=== PATIENT | male | born 1945 | race Caucasian/White ===

== ENCOUNTER 2017-11-14 12:01 | Inpatient (IN) | payer OTHER, MEDICARE, SELFPAY ==
[2017-11-14] VITALS (111 sets, daily range): BP systolic 98–158; BP diastolic 48–121; PULSE 68–144; RESP 15–45; TEMP 36.8–40.9; O2SAT 86–97
--- NOTE | 2017-11-14 12:07 | DI.REPORT_ITS ---
SYMPTOM/DIAGNOSIS: FEVER, CHEST PAIN AP, LATERAL CHEST 11/14/17 The lungs are not well inflated on either view. There is mild respiratory motion on the lateral view. There is a question of mildly increased densities at the left lung base which could represent atelectasis, scarring or infiltrate. The right lung appears clear. The heart size is normal. IMPRESSION: Limited exam. Question of left lower lobe densities.
--- NOTE | 2017-11-14 12:22 | ED.GENADUL_ITS ---
Disposition Clinical Impression: Diverticulitis, Dehydration Disposition: STILL A PATIENT Medical Decision Making - Lab Data Laboratory Tests 11/14/17 11/14/17 11/14/17 12:50 12:50 12:50 WBC RBC Hgb Hct MCV MCH MCHC RDW Plt Count MPV Immature Gran % Neutrophils % Lymphocytes % Monocytes % Eosinophils % Basophils % Absolute Neutrophils Absolute Lymphocytes Absolute Monocytes Absolute Eosinophils Absolute Basophils PT INR APTT D-Dimer 3345 H Sodium 139 Potassium 3.9 Chloride 104 Carbon Dioxide 24.4 Anion Gap 10.6 BUN 23 H Creatinine 1.60 H Estimated GFR/1.73 m2 42.82 Glucose 166 H Lactate Calcium 8.4 L Magnesium 1.9 Total Bilirubin 1.1 H AST 21 ALT 30 Alkaline Phosphatase 56 Troponin I 0.02 Total Protein 7.1 Albumin 3.3 L Lipase 146 TSH Urine Color Urine Clarity Urine pH Ur Specific [place] Urine Protein Urine Ketones Urine Blood Urine Nitrite Urine Bilirubin Urine Urobilinogen Ur Leukocyte Esterase Urine RBC Urine WBC Ur Epithelial Cells Urine Crystals Urine Bacteria Urine Casts Urine Mucus Ur Culture Indicated? Urine Glucose 11/14/17 11/14/17 11/14/17 12:50 12:50 12:50 WBC 6.62 RBC 4.59 Hgb 13.8 Hct 41.6 MCV 90.6 MCH 30.1 MCHC 33.2 RDW 14.3 H Plt Count 153 MPV 9.9 Immature Gran % 0.0 Neutrophils % 95.6 Lymphocytes % 3.6 Monocytes % 0.3 Eosinophils % 0.0 Basophils % 0.5 Absolute Neutrophils 6.33 Absolute Lymphocytes 0.24 L Absolute Monocytes 0.02 L Absolute Eosinophils 0.00 Absolute Basophils 0.03 PT INR APTT D-Dimer Sodium Potassium Chloride Carbon Dioxide Anion Gap BUN Creatinine Estimated GFR/1.73 m2 Glucose Lactate 3.8 H Calcium Magnesium Total Bilirubin AST ALT Alkaline Phosphatase Troponin I Total Protein Albumin Lipase TSH 2.86 Urine Color Urine Clarity Urine pH Ur Specific [place] Urine Protein Urine Ketones Urine Blood Urine Nitrite Urine Bilirubin Urine Urobilinogen Ur Leukocyte Esterase Urine RBC Urine WBC Ur Epithelial Cells Urine Crystals Urine Bacteria Urine Casts Urine Mucus Ur Culture Indicated? Urine Glucose 11/14/17 11/14/17 12:50 13:10 WBC RBC Hgb Hct MCV MCH MCHC RDW Plt Count MPV Immature Gran % Neutrophils % Lymphocytes % Monocytes % Eosinophils % Basophils % Absolute Neutrophils Absolute Lymphocytes Absolute Monocytes Absolute Eosinophils Absolute Basophils PT 10.6 INR 1.1 APTT 23.9 D-Dimer Sodium Potassium Chloride Carbon Dioxide Anion Gap BUN Creatinine Estimated GFR/1.73 m2 Glucose Lactate Calcium Magnesium Total Bilirubin AST ALT Alkaline Phosphatase Troponin I Total Protein Albumin Lipase TSH Urine Color Yellow Urine Clarity Clear Urine pH 7.0 Ur Specific [place] 1.025 Urine Protein >=300 H Urine Ketones Negative Urine Blood Trace-intact H Urine Nitrite Negative Urine Bilirubin Negative Urine Urobilinogen 0.2 Ur Leukocyte Esterase Negative Urine RBC 0-2 Urine WBC 5-10 Ur Epithelial Cells Negative Urine Crystals Negative Urine Bacteria Rare Urine Casts 0-2 hyaline Urine Mucus Trace Ur Culture Indicated? Yes Urine Glucose 100 Results reviewed for labs ordered during visit: Yes - EKG Data Rate: normal (EKG was reviewed by Dr. Kelley. Patient is known to be in normal sinus rhythm with a rate of 102. Q waves are present but the same as EKG from 2004. She had read this atrial flutter by Dr. Kelley disagreed with this and was patient is in normal sinus rhythm.) When compared to previous EKG there are: no significant change - Radiology Data Radiology results: report reviewed, image reviewed Chest x-ray reviewed by radiologist. Mild interstitial lung scarring. Mild left basal atelectasis. No definitive significant consolidation. Costophrenic angles are sharp. No definite evidence of acute cardiopulmonary disease. CT of the patient's chest reviewed by radiology. Advise no evidence of PE. Mild interstitial lung scarring and/or atelectasis. No significant focal consolidation. Posterior pleural thickening. No pleural effusion. No pneumothorax. No adenopathy. No acute mediastinal aortic and abnormality. Advised that overall impression is without findings suggest specific etiology for patient's symptoms. I did contact Dr. Dumas, radiologist with [facility], regarding CT. I am questioning if there was an area of possible abnormality in the left lung to suggest PE. Advised it was too small to suggest definitive pulmonary embolism. I also questioned the lab on the right lower lobe. He advised that there is a bleb versus cyst. Did not have any further recommendations. CT of the patient's abdomen was also obtained. Advise normal-appearing solid organs. No interstitial obstruction. No obstruction uropathy. No free fluid. No free air. Diverticulosis with some thickening of the mid sigmoid colon and slight surrounding fatty stranding. Possibility of early mild diverticulitis should be considered. No other focal inflammatory process. Overall impression advised diverticulosis with some thickening of the mid sigmoid colon and slight surrounding fatty stranding. Possibility of mild early diverticulitis should be considered. - Medical Decision Making Patient presents today with chief complaint of fevers, malaise, chills, vomiting and diarrhea. Initial presentation patient appears unwell. He is pale , tachycardic and hypoxic. Patient placed on 2 L of oxygen. When he first arrived, his oxygen was noted to be in the high 80s. He reports he is currently quite uncomfortable but associates this with bilateral lower extremity sciatica. He has 2+ distal pulses his lower extremities. Calf is soft and nontender. He denies any chest pain. Is not currently feeling short of breath. Patient has temp of 37.9. Could consider multiple sources of his symptoms. As he is having vomiting and diarrhea I am concerned primarily for infectious source. However, as patient was noted to be tachycardic and hypoxic also concern for possible pulmonary embolism. Will also obtain cardiac biomarkers. EKG was obtained immediately upon the patient's presentation. No acute abnormalities noted other than patient being tachycardic. EKG was reviewed by Dr. Kelley. We will obtain chest x-ray, laboratory evaluation to include blood cultures, lactate, TSH, CBC, CMP, troponin, d-dimer. Patient given IV Tylenol. Patient is requesting pain medication to help with his sciatica pain. He will receive fentanyl for this. Chest x-ray without significant abnormality per radiologist. CBC reveals no leukocytosis. Lactate is returned at 3.8. Patient is currently receiving a second liter of fluids. He is received IV Tylenol and fentanyl. Reports he is feeling much improved. Patient looks much more comfortable. Heart rate is 93. Patient is 93% on 2 L nasal cannula Labs evaluation significant for d-dimer of 3345. Creatinine is elevated at 1.6 , this is up from patient's typical. GFR is 42. Lactate is 3.8. No leukocytosis. Calcium is minimally low. TSH is normal. I discussed these findings with the patient. As the patient has been noted to be hypoxic, tachycardic and is not elevated d-dimer I feel that we should obtain a CT for PE. As he is also had vomiting and diarrhea we will also CT the patient's abdomen. I did discuss that with the patient the risks associated with IV contrast dye particularly as he has an apparent acute kidney injury. However, I believe that this kidney injury is likely associated with dehydration as he was appearing so dry on initial presentation. He appears much more hydrated at this point is feeling much improved. We discussed risk/benefits of imaging as well as the intravenous dye. He was understanding and wished to proceed. Patient is receiving his second liter fluid. Is hydrating orally at this point. CT no significant for mild early diverticulitis. Discussed this with the patient. He continues to deny any abdominal pain. Road tested the patient. Was found to be 97% on room air while ambulating. Seems to be doing much better in a more upright position. Patient is no longer hypoxic when lying in bed either. Patient reports he is feeling much improved. Is currently hydrating orally. Remains on a lactated Ringer drip. The patient has a rapidly improved, we will repeat the patient's lactate, obtain 4 hour troponin as well as recheck patient' s kidney function. Discussed this plan with the patient. If patient is found to be greatly improved, he would prefer discharge. However, given his initial appearance, I did discuss with the patient that I would have low threshold to admit him. Patient reports that he does prefer discharge but would understand the need for admission. If patient is admitted, plan is to encourage hydration , treatment for presumed diverticulitis and arrange for prompt follow-up. Advised that he would need to be seen in the next 2 days. At the end of my shift, care was transitioned to Tolu Healy NP. History of Present Illness - General Chief complaint: Fever Stated complaint: CALEX Time Seen by Provider: 11/14/17 12:06 Source: patient, RN notes reviewed Mode of arrival: EMS Limitations: no limitations - History of Present Illness Initial comments: Patient is 72-year-old male with a history of type 2 diabetes, hyperlipidemia, diverticulitis and GERD, brought in via EMS, with chief complaint of rigors, fever and vomiting. He reports that he began having GI upset last night. States he had a sudden onset of nausea, vomiting diarrhea. Reports that last night he had 8 episodes of watery diarrhea. Denies any blood in his stool. He denies any abdominal pain. Is currently endorsing nausea. Did vomit when EMS first arrived to the house. EMS has given him 4 mg of Zofran thus far which she reports has helped with his nausea. States that when he was having his shaking episodes he was having some centralized chest discomfort and shortness of breath. Denies any pain in his back. Is currently denying any chest pain or shortness of breath. He reports he is currently feeling very weak. I difficulty moving himself from the stretcher to the bed. EMS reports that they found to be very weak at home. He is currently endorsing bilateral lower extremity pain. He reports that he has history of sciatica in the both legs and this is unchanged. He denies any new lower extremity edema or posterior calf tenderness. Patient was noted to be febrile by EMS. Glucose was 168. Patient reports she is not taking any of his medications as of yet today secondary to his illness. He denies any headache. Has not noted any rash. Endorses feeling dehydrated as well. Patient reports that he has had coxsackie virus in the past and that he feels similar to when he has had this in the past. - Related Data Acetaminophen [Tylenol Extra Strength] 500 mg PO TID PRN 08/04/12 Blood Sugar Diagnostic [Freestyle Test Strips] 1 each MC BID strip 08/04/12 Naproxen Sodium [Aleve] 220 mg PO BID PRN 08/04/12 Saw Marsteller Fruit [Saw Marsteller] 450 mg PO DAILY #90 tab-cap 04/22/13 Schisandra 500 mg PO PRN #90 tab-cap 04/22/13 Vitamin B Complex 1 tab-cap PO DAILY #90 tab-cap 04/22/13 Ascorbic Acid [Vitamin C] 125 mg PO DAILY #90 tab.chew 04/27/15 Bee Pollen 550 mg PO BID #180 tab-cap 04/27/15 Lactobacillus Acidophilus [Probiotic] 1 each PO DAILY #90 tab-cap 04/27/15 Quercetin 1 cap PO DAILY #90 tab-cap 04/27/15 Quer 05/23/15 Omeprazole 20 mg PO every 3 days #33 tab-cap 08/24/15 Cholecalciferol (Vitamin D3) [Vitamin D3] 1,000 unit PO BID 05/11/17 Flaxseed/Omega3,6,9/Fatty Acid [Flax Seed Oil 1,300 Mg Softgel] 1 each PO DAILY 05/11/17 Metformin HCl 1,000 mg PO BID 90 Days #360 tab-cap 08/10/17 Pravastatin Sodium 20 mg PO DAILY #90 tab-cap 08/10/17 Allergies Allergy/AdvReac Type Severity Reaction Status Date / Time diclofenac [Diclofenac] AdvReac Intermediate DIZZY/LIGHT Unverified 11/14/17 12: 54 HEADED amlodipine AdvReac Mild PEDAL EDEMA Unverified 11/14/17 12:54 venlafaxine AdvReac Unknown Unverified 11/14/17 12:54 Review of Systems Constitutional: see HPI, chills, fever, malaise, weakness (Global). denies: diaphoresis Eyes: denies: eye pain, vision change ENT: denies: ear pain, throat pain, congestion Respiratory: see HPI Cardiovascular: as per HPI Gastrointestinal: as per HPI Genitourinary: denies: urgency, dysuria, frequency, hematuria, discharge Musculoskeletal: denies: back pain, joint swelling Skin: denies: rash, lesions, change in color Neurological: weakness, abnormal gait (associated with weakness). denies: headache, numbness, paresthesias Past Medical History - Past Medical History Medical history: diabetes, GERD, hyperlipidemia Surgical history: no surgical history - Social History Smoking status: never smoker Living Situation: lives with family General Exam - General Limitations: no limitations General appearance: alert, in no apparent distress (appears uncomfortable and pale) - Head Head exam: Present: atraumatic - Eye Eye exam: Present: normal apperance - ENT ENT exam: Present: mucous membranes dry - Neck Neck exam: Present: normal inspection. Absent: tenderness - Respiratory Respiratory exam: Present: normal lung sounds bilaterally. Absent: respiratory distress, wheezes, rales, rhonchi - Cardiovascular Cardiovascular Exam: Present: normal rhythm, tachycardia, normal heart sounds - GI/Abdominal GI/Abdominal exam: Present: soft, diminished bowel sounds. Absent: distended, tenderness, guarding, rebound, rigid, bruit, pulsatile mass - Rectal Rectal exam: Present: deferred - Extremities Exam Extremities exam: Present: normal inspection, normal capillary refill, other (2 + distal pulses). Absent: pedal edema, calf tenderness - Back Exam Back exam: Present: normal inspection. Absent: CVA tenderness (R), CVA tenderness (L) - Neurological Exam Neurological exam: Present: alert, abnormal gait (patient weak, needed assistance to transver from gerny to stretcher) - Psychiatric Psychiatric exam: Present: anxious, flat affect - Skin Skin exam: Present: warm, dry, normal color Course Vital Signs - 24 hr 11/14/17 12:10 Temperature 37.9 C H Pulse 97 H Respiratory 22 Rate Blood Pressure 150/68 Pulse Oximetry 92 L
[2017-11-14] MEDS: Normal Saline 1,000 ML 1000 ML IV (12:27)
[2017-11-14] MEDS: ACETAMINOPHEN 1,000 MG/100 ML BTL 400 MG IVPB (12:35)
[2017-11-14] MEDS: fentaNYL 100 MCG/2 ML VIAL 50 MCG IVP ×2 (12:35→23:02)
[2017-11-14 13:11] LABS: Absolute Basophil Count 0.03 k/cumm (0.0-0.2); Absolute Lymphocyte Count 0.24 k/cumm (1.2-3.4); Absolute Monocyte Count 0.02 k/cumm (0.11-0.7); Absolute Neutrophil Count 6.33 k/cumm (1.2-6.7); Basophils % 0.5; HCT 41.6 % (40.0-50.0); HGB 13.8 g/dL (13.5-17.5); Lymphocytes % 3.6; Mean Corp. HGB Concentration 33.2 g/dL (32.0-36.0); Mean Corpuscular Hemoglobin 30.1 pg (27.0-33.0); Mean Corpuscular Volume 90.6 fL (80-95); Mean Platelet Volume 9.9 fL (8.0-11.0); Monocytes % 0.3; Neutrophils % 95.6; Platelet Count 153 x1000/uL (130-400); RBC 4.59 m/cumm (4.50-6.00); RBC Distribution Width 14.3 % (11.8-14.1); White Blood Cell Count 6.62 k/cumm (4.4-10.8)
[2017-11-14 13:12] LABS: Lactate-non-spesis 3.8 mmol/L (0.6-1.4)
[2017-11-14] MEDS: Lactated Ringers 1,000 ML 1000 ML IV (13:12)
[2017-11-14 13:25] LABS: INR 1.1 (1.0-3.5); PTT Activated 23.9 sec (21.0-31.4); Prothrombin Time 10.6 sec (9.3-10.8)
--- NOTE | 2017-11-14 13:29 | DI.[facility]AD_ITS ---
EXAM: XR Chest, 2 Views CLINICAL HISTORY: 72 years old, male; Pain and signs and symptoms; Fever; Chest pain; Type not specified TECHNIQUE: Frontal and lateral views of the chest. COMPARISON: CR - ABD FLAT UPRIGHT PA CHEST 2011-03-29 12:38 FINDINGS: Mild interstitial lung scarring. Mild left basal atelectasis. No definite significant other consolidation. Costophrenic angles are sharp. IMPRESSION: No definite evidence of acute cardiopulmonary disease. Dictated and Authenticated by: Eliezer Dumas MD. Ordering:NAVEED OLIVIER MD
[2017-11-14 13:34] LABS: Lipase 146 U/L (73-393); Magnesium 1.9 mg/dL (1.8-2.4)
[2017-11-14 13:40] LABS: Bilirubin Negative (Negative); Blood Trace-intact (Negative); Clarity Clear; Glucose 100 mg/dL (Negative); Ketones Negative (Negative); Leukocyte Esterase Negative (Negative); Nitrite Negative (Negative); Specific Gravity 1.025 (1.005-1.025); Urobilinogen 0.2 EU/dL (Up TO 0.2)
[2017-11-14 13:42] LABS: ALT 30 U/L (12-78); AST 21 U/L (15-37); Albumin 3.3 g/dL (3.4-5.0); Alkaline Phosphatase 56 U/L (46-116); Anion Gap 10.6 mmol/L (3-11); BUN 23 mg/dL (7-18); Bilirubin, Total 1.1 mg/dL (0.2-1.0); CO2 24.4 mmol/L (21.0-32.0); Calcium 8.4 mg/dL (8.5-10.1); Chloride 104 mmol/L (98-107); Estimated GFR 42.82 (mL/min/1.73m2); Glucose 166 mg/dL (70-100); Potassium 3.9 mmol/L (3.5-5.1); Sodium 139 mmol/L (136-145); Total Protein 7.1 g/dL (6.4-8.2); Troponin I 0.02 ng/mL (0.00-0.06)
[2017-11-14 13:47] LABS: D-Dimer 3345 ng/mlFEU (<500)
--- NOTE | 2017-11-14 13:54 | DI.RPTCT_ITS ---
SYMPTOM/DIAGNOSIS: ELEVATED DIMER, TACHYCARDIC, HYPOXIC, ELEVATED LACTATE, VOMITING AND DIARRHEA CHEST CT FOR PULMONARY EMBOLISM. There is no evidence of pulmonary embolism or aortic dissection. There are atherosclerotic changes of the descending aorta. Evaluation of the lungs is limited by respiratory motion. There is bibasilar posterior atelectasis. No compression fractures or pneumothorax seen. IMPRESSION: Negative chest CT. No evidence of pulmonary emboli or other acute abnormality. CT ABDOMEN AND PELVIS: The exam was somewhat limited by patient motion. The liver shows mild fatty infiltration. There is motion at the level of the gallbladder which appears grossly normal. There is no biliary dilatation. The spleen, adrenals and pancreas are unremarkable. There are bilateral renal cysts. There is no renal calculi or hydronephrosis seen. There are diverticula along the descending colon. Diverticula are quite prominent in the sigmoid region which also shows muscular hypertrophy. There is some mild stranding around the sigmoid region, consistent with mild or early diverticulitis. The appendix appears normal. There is no bowel dilatation. The prostate is mildly enlarged. The aorta is normal in diameter and shows atherosclerotic change. There is no evidence of dissection. IMPRESSION: Mild sigmoid diverticulitis
[2017-11-14 13:56] LABS: Bacteria Rare HPF (Negative); C & S Indicated? Yes; Casts 0-2 Hyaline LPF (Negative); Crystals Negative HPF (Negative); Epithelial Cells Negative HPF (Negative); Mucus Trace (Negative); RBC 0-2 (0-2)
[2017-11-14] MEDS: Omnipaque 350 MG/ML 100 ML BTL IJ (14:20)
--- NOTE | 2017-11-14 14:21 | NUR.NOTE ---
Nursing Note: Pt to CT scan.
[2017-11-14 14:26] LABS: TSH (W/Ref FT4) 2.86 uIU/mL (0.358-3.74)
--- NOTE | 2017-11-14 15:17 | DI.[facility]AD_ITS ---
EXAM: CT Abdomen and Pelvis With Intravenous Contrast CLINICAL HISTORY: 72 years old, male; Signs and symptoms; Other: Elevated d dimer, tachycardic, hypoxic, elevated lactate, vomitting TECHNIQUE: Axial computed tomography images of the abdomen and pelvis with intravenous contrast. Coronal and sagittal reformatted images were created and reviewed. COMPARISON: No relevant prior studies available. FINDINGS: Normal appearing solid organs. No intestinal obstruction. No obstructive uropathy. No free fluid. No free air. Diverticulosis with some thickening of the mid sigmoid colon and slight surrounding fatty stranding. Possibility of early mild diverticulitis would have to be considered. No other focal inflammatory process. Impression: Diverticulosis with some thickening of the mid sigmoid colon and slight surrounding fatty stranding. Possibility of early mild diverticulitis would have to be considered. EXAM: CT Angiography Chest With Intravenous Contrast CLINICAL HISTORY: 72 years old, male; Signs and symptoms; Other: Elevated d dimer, tachycardic, hypoxic, elevated lactate, vomitting TECHNIQUE: Axial computed tomographic angiography images of the chest with intravenous contrast using pulmonary embolism protocol. MIP reconstructed images were created and reviewed. Coronal and sagittal reformatted images were created and reviewed. COMPARISON: No relevant prior studies available. FINDINGS: No evidence of PE. Mild interstitial lung scarring and/or atelectasis. No significant focal consolidation. Posterior pleural thickening. No pleural effusion. No pneumothorax. No adenopathy. No acute mediastinal or aortic abnormality. Impression: No specific etiology identified for the patient's symptoms. Dictated and Authenticated by: Eliezer Dumas MD. Ordering:NAVEED OLIVIER MD
[2017-11-14] MEDS: Lactated Ringers 1,000 ML 200 ML IV ×2 (15:45→20:38)
--- NOTE | 2017-11-14 16:00 | NUR.NOTE ---
Nursing Note: walked to [facility] with oxygen removed--Sao2 96 %. C/o some weakness but states he feels a lot better
--- NOTE | 2017-11-14 16:24 | ED.FU_ITS ---
Disposition Clinical Impression: Diverticulitis, Dehydration Disposition: STILL A PATIENT Medical Decision Making - Lab Data Laboratory Tests 11/14/17 11/14/17 11/14/17 12:50 12:50 12:50 WBC RBC Hgb Hct MCV MCH MCHC RDW Plt Count MPV Immature Gran % Neutrophils % Lymphocytes % Monocytes % Eosinophils % Basophils % Absolute Neutrophils Absolute Lymphocytes Absolute Monocytes Absolute Eosinophils Absolute Basophils PT INR APTT D-Dimer 3345 H Sodium 139 Potassium 3.9 Chloride 104 Carbon Dioxide 24.4 Anion Gap 10.6 BUN 23 H Creatinine 1.60 H Estimated GFR/1.73 m2 42.82 Glucose 166 H Lactate Calcium 8.4 L Magnesium 1.9 Total Bilirubin 1.1 H AST 21 ALT 30 Alkaline Phosphatase 56 Troponin I 0.02 Total Protein 7.1 Albumin 3.3 L Lipase 146 TSH Urine Color Urine Clarity Urine pH Ur Specific [place] Urine Protein Urine Ketones Urine Blood Urine Nitrite Urine Bilirubin Urine Urobilinogen Ur Leukocyte Esterase Urine RBC Urine WBC Ur Epithelial Cells Urine Crystals Urine Bacteria Urine Casts Urine Mucus Ur Culture Indicated? Urine Glucose 11/14/17 11/14/17 11/14/17 12:50 12:50 12:50 WBC 6.62 RBC 4.59 Hgb 13.8 Hct 41.6 MCV 90.6 MCH 30.1 MCHC 33.2 RDW 14.3 H Plt Count 153 MPV 9.9 Immature Gran % 0.0 Neutrophils % 95.6 Lymphocytes % 3.6 Monocytes % 0.3 Eosinophils % 0.0 Basophils % 0.5 Absolute Neutrophils 6.33 Absolute Lymphocytes 0.24 L Absolute Monocytes 0.02 L Absolute Eosinophils 0.00 Absolute Basophils 0.03 PT INR APTT D-Dimer Sodium Potassium Chloride Carbon Dioxide Anion Gap BUN Creatinine Estimated GFR/1.73 m2 Glucose Lactate 3.8 H Calcium Magnesium Total Bilirubin AST ALT Alkaline Phosphatase Troponin I Total Protein Albumin Lipase TSH 2.86 Urine Color Urine Clarity Urine pH Ur Specific [place] Urine Protein Urine Ketones Urine Blood Urine Nitrite Urine Bilirubin Urine Urobilinogen Ur Leukocyte Esterase Urine RBC Urine WBC Ur Epithelial Cells Urine Crystals Urine Bacteria Urine Casts Urine Mucus Ur Culture Indicated? Urine Glucose 11/14/17 11/14/17 12:50 13:10 WBC RBC Hgb Hct MCV MCH MCHC RDW Plt Count MPV Immature Gran % Neutrophils % Lymphocytes % Monocytes % Eosinophils % Basophils % Absolute Neutrophils Absolute Lymphocytes Absolute Monocytes Absolute Eosinophils Absolute Basophils PT 10.6 INR 1.1 APTT 23.9 D-Dimer Sodium Potassium Chloride Carbon Dioxide Anion Gap BUN Creatinine Estimated GFR/1.73 m2 Glucose Lactate Calcium Magnesium Total Bilirubin AST ALT Alkaline Phosphatase Troponin I Total Protein Albumin Lipase TSH Urine Color Yellow Urine Clarity Clear Urine pH 7.0 Ur Specific [place] 1.025 Urine Protein >=300 H Urine Ketones Negative Urine Blood Trace-intact H Urine Nitrite Negative Urine Bilirubin Negative Urine Urobilinogen 0.2 Ur Leukocyte Esterase Negative Urine RBC 0-2 Urine WBC 5-10 Ur Epithelial Cells Negative Urine Crystals Negative Urine Bacteria Rare Urine Casts 0-2 hyaline Urine Mucus Trace Ur Culture Indicated? Yes Urine Glucose 100 Results reviewed for labs ordered during visit: Yes - Radiology Data Radiology results: report reviewed, image reviewed - Medical Decision Making Patient presenting to the emergency department for chief complaint of fever chills rigors and episode of diarrhea this morning around 9 AM. CARE of patient was started by June KERR. Patient reassessed after sign out and states that he feels significantly improved. Patient denies any pain or discomfort at this time but does state this morning during Reiger's he had some shortness of breath and chest pain that is now fully resolved. I agree with initially documented assessment and physical exam findings with no changes noted at this time. Review of second CMP shows improved lactate findings but still signs of acute renal dysfunction which I feel secondary to dehydration. Still pending on troponin. Received report of troponin of 0.12. Repeat EKG was performed and reviewed with Dr. Kelley and shows normal sinus rhythm with a rate of 81 normal axis and otherwise nondiagnostic. Patient was again reassessed and states no chest pain or discomfort. Repeat cardiac exam was also performed and no new findings were noted. I feel that this may be secondary bump in troponin due to viral illness versus primary but of notation is patient does have low O2 sat with rest. staff research scientist did place patient on O2 given some desat to 88%. Given elevated troponin , dehydration, fever and chills I do feel that patient should be admitted. There is slight concern for myocarditis versus slight findings of diverticulosis with possible progression of diverticulitis that is early. Spoke with Dr. Monroy in regards to patient being admitted which he accepted patient in admission for further trending of ESR and CRP that was added, trending of troponin, continued hydration, and possible early diverticulosis type treatment. Patient was also in agreement of this plan to be admitted for further treatment and observation. Care Signed Out By:: June KERR - Vital Signs Recent Vitals - 8H: Vital Signs - 8 hr 11/14/17 11/14/17 11/14/17 12:06 12:07 12:10 Temperature 37.9 C H Pulse 99 H 97 H Respiratory 25 H 27 H Rate Blood Pressure 150/63 150/68 Pulse Oximetry 89 L 86 L 89 L 11/14/17 11/14/17 11/14/17 12:18 12:20 12:30 Temperature Pulse 95 H Respiratory 21 18 34 H Rate Blood Pressure 149/61 Pulse Oximetry 92 L 92 L 11/14/17 11/14/17 11/14/17 12:32 12:40 12:50 Temperature Pulse 110 H Respiratory 25 H 34 H 33 H Rate Blood Pressure 156/121 Pulse Oximetry 93 L 91 L 11/14/17 11/14/17 11/14/17 13:04 13:20 13:22 Temperature Pulse 94 H Respiratory 34 H 15 26 H Rate Blood Pressure 158/71 Pulse Oximetry 89 L 11/14/17 11/14/17 11/14/17 13:26 13:30 13:31 Temperature 37.7 C H Pulse 92 H Respiratory 29 H 24 Rate Blood Pressure 146/69 Pulse Oximetry 93 L 93 L 11/14/17 11/14/17 11/14/17 13:40 13:46 13:50 Temperature Pulse 91 H Respiratory 28 H 29 H 32 H Rate Blood Pressure 134/60 Pulse Oximetry 93 L 94 L 94 L 11/14/17 11/14/17 11/14/17 14:01 14:10 14:35 Temperature Pulse 100 H Respiratory 21 25 H 28 H Rate Blood Pressure 124/66 Pulse Oximetry 93 L 92 L 92 L 11/14/17 11/14/17 11/14/17 14:36 14:40 14:46 Temperature Pulse 89 83 Respiratory 20 22 24 Rate Blood Pressure 124/68 131/62 Pulse Oximetry 91 L 91 L 95 11/14/17 11/14/17 11/14/17 14:49 14:50 15:00 Temperature 36.8 C Pulse Respiratory 23 21 Rate Blood Pressure Pulse Oximetry 96 96 11/14/17 11/14/17 11/14/17 15:01 15:10 15:16 Temperature Pulse 75 76 Respiratory 21 19 21 Rate Blood Pressure 130/61 131/67 Pulse Oximetry 96 95 95 11/14/17 11/14/17 11/14/17 15:20 15:25 15:30 Temperature 37.2 C Pulse Respiratory 19 27 H Rate Blood Pressure Pulse Oximetry 96 96 11/14/17 11/14/17 11/14/17 15:31 15:40 15:54 Temperature Pulse 82 81 Respiratory 25 H 26 H 29 H Rate Blood Pressure 126/68 140/61 Pulse Oximetry 95 96 93 L 11/14/17 11/14/17 11/14/17 15:55 16:00 16:01 Temperature Pulse 82 Respiratory 27 H 31 H 19 Rate Blood Pressure 113/74 Pulse Oximetry 94 L 93 L 92 L 11/14/17 16:10 Temperature Pulse Respiratory 31 H Rate Blood Pressure Pulse Oximetry 92 L - Continuation of Care Continuation of Care Plan: Care of patient was signed out to me for 72-year-old male presenting to the emergency department fever chills, diarrhea, and weakness. We are pending repeat troponin along with repeat CMP for concern of significant dehydration and possibly early diverticulitis. After review of repeat labs plan is to reassess patient for possible admission versus outpatient therapy and close follow-up.
[2017-11-14 16:39] LABS: Lactate-non-spesis 1.6 mmol/L (0.6-1.4)
[2017-11-14 16:49] LABS: Anion Gap 7.3 mmol/L (3-11); BUN 22 mg/dL (7-18); CO2 25.7 mmol/L (21.0-32.0); CREATININE 1.43 mg/dL (0.70-1.30); Calcium 8.2 mg/dL (8.5-10.1); Chloride 103 mmol/L (98-107); Estimated GFR 48.75 (mL/min/1.73m2); Glucose 146 mg/dL (70-100); Potassium 3.6 mmol/L (3.5-5.1); Sodium 136 mmol/L (136-145)
[2017-11-14 17:06] LABS: Troponin I 0.21 ng/mL (0.00-0.06)
[2017-11-14] MEDS: Acetaminophen 325 MG TAB 650 MG PO (17:24)
[2017-11-14 17:43] LABS: C-Reactive Protein 8.81 mg/dL (0.0-0.3)
[2017-11-14 18:20] LABS: ESR 36 MM/HR (1-20)
[2017-11-14 20:35] LABS: Troponin I 0.15 ng/mL (0.00-0.06)
[2017-11-14] MEDS: Pantoprazole 40 MG VIAL IVP (20:38)
[2017-11-14] MEDS: Acetaminophen 325 MG TAB PO (22:03)
[2017-11-14] MEDS: Pravastatin 20 MG TAB PO (22:04)
[2017-11-14] MEDS: Heparin 5,000 UNITS/ML VIAL 5000 UNITS SC (22:04)
[2017-11-14 22:26] LABS: Anion Gap 10.9 mmol/L (3-11); BUN 22 mg/dL (7-18); CO2 26.1 mmol/L (21.0-32.0); CREATININE 1.57 mg/dL (0.70-1.30); Calcium 8.4 mg/dL (8.5-10.1); Chloride 104 mmol/L (98-107); Estimated GFR 43.77 (mL/min/1.73m2); Glucose 138 mg/dL (70-100); Potassium 4.2 mmol/L (3.5-5.1); Sodium 141 mmol/L (136-145)
[2017-11-14] MEDS: Ibuprofen 600 MG TAB PO (23:43)
[2017-11-15] VITALS (74 sets, daily range): BP systolic 97–187; BP diastolic 46–114; PULSE 59–135; RESP 14–40; TEMP 35.5–40.2; O2SAT 90–98
[2017-11-15] MEDS: Normal Saline 1,000 ML 150 ML IV ×2 (00:42→10:41)
[2017-11-15] MEDS: Normal Saline Flush 10 ML SYR IVP (00:42)
[2017-11-15 01:13] LABS: Troponin I 0.64 ng/mL (0.00-0.06)
[2017-11-15] MEDS: AZITHROMYCIN 500 MG in Normal Saline 250 ML 250 MG IVPB (01:43)
--- NOTE | 2017-11-15 02:02 | NUR.NOTE ---
2202 the patient rang and states that he was just starting to feel some chills, temp 38C. RN Denis Mason left the room to get 1,000 mg tylenol POand upon directly returning with the medication in less than 10 minutes, found the patient in rigors and moaning. The patient took the tylenol and the rigors proceeded to worsen over the next 20 min. Warm blankets were added briefly which helped reduce the rigors and make the patient more comfortable. The patient had to get OOB to use the commode and did so with exertion and severe rigors. 224 Yolis Benitez RN paged Dr. Monroy while Denis Mason RN remained in the room with the patient. Dr. Monroy was updated on the patient's condition and ordered Fentanyl 50mcg IV and Ibuprofen 600mg PO. He also ordered IV tylenol PRN q 6hr given the patient's fast hyperthermic response. 2256 The patient returned to bed around this time and his HR was increased steadily from 120s to now 140s. 02 remaining 94-96% on 6L/NC The patient's RR was 30s. Patient's mental status was restless and patient had to be instructed repeatedly to reduce exertion as patient was trying to sit up or move into unnecessary positions with some confusion. Patient's thighs had dark purple mottling present at this time. 2302 Temp has now climbed to 40.6-40.9 and the patient is still in rigors with no affect seen from the 1,000mg oral tylenol. Fentanyl given and rigors stopped, patient drifted into disoriented rest. Pt not sure where he is at this time. 2317 Damp, cool towels have been placed under the patient's neck, in groin folds, and over patient's chest with a fan cooling the patient's head. No rigors are present and the temp remains 40.1. 2325 02 increased briefly from 6L/NC to 10L/NC as patient's 02 sat is staying 91-94%. Pt shallow mouth breathing so non-rebreather mask was used to replace NC. 02 sat maintaining 94-95% on 6L/min. Cultures were drawn and another troponin rechecked per Dr. Monroy. Second IV was placed by Yolis Benitez RN. 2340 Patient's mentation is starting to clear and patient is able to swallow Ibuprofen 600mg, patient voided for the 3rd time since 2201. Allergy factor with NSAID resemblance to diclofenac was reviewed with patient and patient states that he takes Ibuprofen and has no reaction. Temp now 39.1. Full physical exam was performed. Mottling of the thighs has now resolved.02 reduced to 2.5L/NC and patient maintaining 94%. Lungs noticeably diminished in the bases compared to [address] Monroy in to visit patient, reviewed labs, talked to the patient, found crackles in posterior bases not present on [address] Jesus updated on the concern that the patient is having another bout of coxsakie virus as the patient has had this several times before and it presented as such. The doctor plans to change LR to NS and reduce rate from 200 ml/hr to 150ml/hr. Also, he is starting ABX pip/celia 3.375 gram and Azithromycin 500mg IV to cover a bacterial agent given the repeated fever.Temp 39.3 now. Patient now able to converse and has vague remembrance of occurrences in the past two hours. ABIGAIL Mason has been in the room almost constantly since 2201 with the exception of leaving briefly to grab a supply. The patient's bedding was changed and temp continued to drop, towels were removed and the patient fell into a peaceful rest. 0110 temp 37.6, patient sleeping and in no distress, Dr. Monroy notified at this time that troponin increased to 0.64. The doctor ordered to have troponin redrawn with AM labs and routine EKG in the morning. ABX started and patient continuing to be monitored closely. Denis Mason RN Nursing Note:
[2017-11-15] MEDS: Heparin 5,000 UNITS/ML VIAL 5000 UNITS SC (06:16)
[2017-11-15 06:55] LABS: Abs Immature Grans 0.01 k/cumm (0.0-0.09); Absolute Basophil Count 0.03 k/cumm (0.0-0.2); Absolute Eosinophil Count 0.01 k/cumm (0.0-0.7); Absolute Lymphocyte Count 0.67 k/cumm (1.2-3.4); Absolute Monocyte Count 0.63 k/cumm (0.11-0.7); Basophils % 0.3; Eosinophils % 0.1; HGB 12.5 g/dL (13.5-17.5); Immature Grans % 0.1; Lymphocytes % 6.9; Mean Corp. HGB Concentration 32.9 g/dL (32.0-36.0); Mean Corpuscular Hemoglobin 29.9 pg (27.0-33.0); Mean Corpuscular Volume 90.9 fL (80-95); Mean Platelet Volume 10.2 fL (8.0-11.0); Monocytes % 6.5; Neutrophils % 86.1; Platelet Count 119 x1000/uL (130-400); RBC 4.18 m/cumm (4.50-6.00); RBC Distribution Width 14.9 % (11.8-14.1); White Blood Cell Count 9.66 k/cumm (4.4-10.8)
[2017-11-15 06:58] LABS: Absolute Neutrophil Count 8.32 k/cumm (1.2-6.7)
[2017-11-15 07:12] LABS: ALT 45 U/L (12-78); AST 44 U/L (15-37); Albumin 2.6 g/dL (3.4-5.0); Alkaline Phosphatase 47 U/L (46-116); Anion Gap 7.6 mmol/L (3-11); BUN 22 mg/dL (7-18); Bilirubin, Total 1.4 mg/dL (0.2-1.0); CO2 25.4 mmol/L (21.0-32.0); CREATININE 1.49 mg/dL (0.70-1.30); Calcium 7.9 mg/dL (8.5-10.1); Chloride 107 mmol/L (98-107); Estimated GFR 46.49 (mL/min/1.73m2); Glucose 154 mg/dL (70-100); Potassium 3.8 mmol/L (3.5-5.1); Sodium 140 mmol/L (136-145)
[2017-11-15 07:14] LABS: Troponin I 0.78 ng/mL (0.00-0.06)
--- NOTE | 2017-11-15 08:00 | DI.REPORT_ITS ---
SYMPTOM/DIAGNOSIS: FEVER, HYPOXIA WITH BASILAR RALES. PORTABLE SEMI-ERECT CHEST: Comparison is made with 14 November 2017. Leads overlie the chest. The heart size is within normal limits for projection. There is a question of increased density at the left lung base, however the lungs are not well inflated. An infiltrate cannot be entirely excluded. There is no evidence of overt pulmonary edema. IMPRESSION: Mildly increased densities at the left lung base which could represent scarring, atelectasis or infiltrate.
[2017-11-15 08:10] LABS: Lactate-non-spesis 1.1 mmol/L (0.6-1.4)
[2017-11-15] MEDS: CIPROFLOXACIN 400 MG/200 ML BAG 200 MG IVPB (08:17)
[2017-11-15] MEDS: Lactobacillus Acidophilus CAP 1 CAP PO (08:18)
[2017-11-15] MEDS: Aspirin 81 MG CHEW PO (08:18)
[2017-11-15 08:38] LABS: PTT Activated 28.5 sec (21.0-31.4)
[2017-11-15] MEDS: Metoprolol 12.5 MG TAB 6.25 MG PO ×2 (09:01→20:23)
[2017-11-15] MEDS: POTASSIUM CHLORIDE 20 MEQ/100 ML BAG 50 MEQ IVPB (09:06)
--- NOTE | 2017-11-15 10:14 | DI.VRAD_ITS ---
EXAM: XR Chest, 1 View EXAM DATE/TIME: 11/15/2017 12:18 AM CLINICAL HISTORY: 72 years old, male; Signs and symptoms; Other: Fever and hypoxemia with bibasilar rales; Patient HX: Sudden onset fever with rigors, previous smoker TECHNIQUE: XR of the chest, 1 view. COMPARISON: CR - CHEST 2 VIEWS PA,LAT 2017-11-14 13:11 FINDINGS: Lungs: Mild left basilar atelectasis and/or infiltrate and/or effusion and/or scarring. Pleural space: Normal. No pneumothorax. Heart/Mediastinum: Normal. No cardiomegaly. Bones/joints: Unremarkable for age. Other findings: Patient rotation to the left. IMPRESSION: Mild left basilar atelectasis and/or infiltrate and/or effusion and/or scarring. Dictated and Authenticated by: Daquan Charles MD. Ordering:BINU CALVO MD
[2017-11-15 11:09] LABS: Troponin I 0.48 ng/mL (0.00-0.06)
--- NOTE | 2017-11-15 11:58 | PDOC.CMIN ---
Date of Service: 11/15/17 Time of Service: 11:58 Care Management Initial Assess REASON FOR HOSPITALIZATION:: Diverticulitis, Dehydration PAST MEDICAL HISTORY/PAST SURGICAL HISTORY:: Per ER Note: Diabetes, GERD, Hyperlipidemia PREVIOUS FUNCTIONAL STATUS/SOCIAL/FAMILY SUPPORTS:: Clovis resides with his Liyah in [facility]. He is an employee at [employer] and works for [employer]. Clovis is independent at baseline, drives, and is able to manage ADL's. CURRENT FUNCTIONAL STATUS:: Clovis is sitting up in bed this morning. He is texting on his phone and states that he is feeling better than he was yesterday. Clovis states that his temperature got so high that he doesn't remember everything that happened yesterday. ADVANCE DIRECTIVES:: On file - Liyah Westbrook is his agent, Alternate agent is Royal Sauer Has patient been provided with information about the portal?: Yes Did the patient sign up for the portal?: No (already has) CODE STATUS:: Full Code INSURANCE COVERAGE / FINANCIAL ISSUES:: [employer] CURRENT HOME/COMMUNITY SERVICES/EQUIPMENT:: Currently Clovis has no services or medical equipment in the community. PRIMARY CARE PHYSICIAN:: Shyam Harvey POTENTIAL DISCHARGE NEEDS:: F/U appointment with PCP PATIENT/FAMILY EDUCATION NEEDS:: Review DC instructions, any limitations, and ongoing DC planning discussion. Discuss Ask Me Three ANTICIPATED BARRIERS TO DISCHARGE:: None identified at this time. TRANSPORTATION:: Via private vehicle with Liyah PLAN:: Clovis will return home when medically cleared with no anticipated services. Clovis will F/U with PCP and plan of care as prescribed, his Liyah will transport him.
--- NOTE | 2017-11-15 12:02 | INITIAL_ITS ---
Date of Service: 11/15/17 Time of Service: 11:58 Care Management Initial Assess REASON FOR HOSPITALIZATION:: Diverticulitis, Dehydration PAST MEDICAL HISTORY/PAST SURGICAL HISTORY:: Per ER Note: Diabetes, GERD, Hyperlipidemia PREVIOUS FUNCTIONAL STATUS/SOCIAL/FAMILY SUPPORTS:: Clovis resides with his Liyah in [facility]. He is an employee at [employer] and works for [employer]. Clovis is independent at baseline, drives, and is able to manage ADL 's. CURRENT FUNCTIONAL STATUS:: Clovis is sitting up in bed this morning. He is texting on his phone and states that he is feeling better than he was yesterday. Clovis states that his temperature got so high that he doesn't remember everything that happened yesterday. ADVANCE DIRECTIVES:: On file - Liyah Westbrook is his agent, Alternate agent is Royal Sauer Has patient been provided with information about the portal?: Yes Did the patient sign up for the portal?: No (already has) CODE STATUS:: Full Code INSURANCE COVERAGE / FINANCIAL ISSUES:: [employer] CURRENT HOME/COMMUNITY SERVICES/EQUIPMENT:: Currently Clovis has no services or medical equipment in the community. PRIMARY CARE PHYSICIAN:: Shyam Harvey POTENTIAL DISCHARGE NEEDS:: F/U appointment with PCP PATIENT/FAMILY EDUCATION NEEDS:: Review DC instructions, any limitations, and ongoing DC planning discussion. Discuss Ask Me Three ANTICIPATED BARRIERS TO DISCHARGE:: None identified at this time. TRANSPORTATION:: Via private vehicle with Liyah PLAN:: Clovis will return home when medically cleared with no anticipated services. Clovis will F/U with PCP and plan of care as prescribed, his Liyah will transport him.
--- NOTE | 2017-11-15 12:16 | HPE_ITS ---
DATE OF ADMISSION: November 14, 2017 ASSESSMENT: This is a 72-year-old gentleman who presented with fever and rigors with no true focal physical findings to explain his fever though he had been exposed to coxsackievirus which could present with recurring fever which normalizes in between episodes and he does have GI symptoms with nausea and diarrhea. Because of rales and increased inflammatory labs, though he does not have a high white count, and because of his findings on CT scan with possible diverticulitis, I will place him on IV antibiotic therapy to cover both while we await cultures and treat symptomatically with hydration for his acute kidney injury, watching for worsening since he is on metformin and received iv dye. His diagnosis is fever with probable diverticulitis at this point. PLAN: Admit for medical care. Continue IV hydration. IV antibiotics with Zosyn and Zithromax. Reassess chest x-ray in the morning for possible evolving pneumonia. Consider flu screen if his fever persists at high levels though there have been no flu cases recently. For now his diabetes with glucometer coverage with a.c. and h.s. glucometer, with his other medications continued the same. He is a FULL CODE and this will be respected. HISTORY OF PRESENT ILLNESS: This is a 72-year-old gentleman who was brought to the Emergency Room early with episodes of fever and rigors and was found to be hypoxic, with sinus tachycardia. He had had GI upset the night prior to his presentation. He does have a history of diverticulosis, questionable diverticulitis when he was scanned in the Emergency Room. After hydration and initial treatment the patient was feeling much better but he had a troponin which was negative initially and then positive with repeat. He had no history of CAD and no previous angina, and he had no chest pain during his episode. He was short of breath and did complain of chest pain during his episode of rigors but that had resolved. 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 This is reminiscent of previous infection with coxsackievirus with GI symptoms and high fever. He was admitted on medical care with cardiac monitoring and was to remain on hydration and O2 supplement as needed though he had no previous history of hypoxemia or respiratory symptoms. He was a previous smoker for about 30 years and his has severe COPD. He and his were both smokers. He is on minimal medications, mostly supplements, has obesity and appears to not be an shooter helper. He does have diabetes but this is on oral therapy only. He did receive IV dye with his CT scans and on lab he did have an elevated renal panel which is waxing and waning with IV hydration and his symptoms. This needs to be watched closely. Besides his rigors and body aches with high fever up to about 105 after he was admitted to the ICU on medical care, the patient feels well in between these episodes. He did have nausea, not sure about vomiting, and he did have diarrhea with his symptoms. He denied any hematemesis or hematochezia. PERTINENT REVIEW OF SYSTEMS: No peripheral edema or weight gain. The patient has been generally well prior to this episode. PAST MEDICAL HISTORY: 1. Noninsulin-dependent diabetes on metformin. 2. Hyperlipidemia on pravastatin. 3. Diverticulosis. 4. Peptic ulcer disease. 5. Hypertension. 6. Obesity. 7. Myalgias on certain statins. 8. Back pain with bilateral sciatica and myalgias in general as mentioned. PAST SURGICAL HISTORY: 1. Arthroscopy surgery on left shoulder in 2001. 2. Bilateral inguinal hernia repair. 3. Tonsillectomy and adenoidectomy. ALLERGIES: 1. Diclofenac. With diclofenac, which is an NSAID, he had dizziness as a symptom and he is on and is able to take NSAIDs. 2. Amlodipine. 3. Venlafaxine. MEDICATIONS: 1. Metformin 1000 mg twice a day. 2. Omeprazole 20 mg every 3 days. 3. Pravastatin 20 mg daily. 4. Naproxen/Aleve 220 mg twice a day as needed. 5. Tylenol 500 mg 3 times a day for pain. 6. Vitamin C 125 mg daily. 7. Vitamin D 1000 IU twice a day. 8. Bee pollen 550 mg twice a day. 9. Flaxseed with omega-3/6/9 fatty acid 1300 mg softgel daily. 10. Lactobacillus acidophilus, 1 daily. 11. Quercetin, 1 cap daily. 12. Saw palmetto 450 mg daily. 13. Vitamin B complex, 1 tab daily. 14. Schisandra 500 mg as needed. FAMILY HISTORY: Positive for depression, diabetes, hypertension, and substance abuse in his daughter who at the age of 26. Alzheimer's disease in his father. Heart disease in his father and grandfather. Leukemia in his father. Myocardial infarction as heart disease. SOCIAL HISTORY: The patient is . 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 He is a previous smoker of 30 years or so at one pack per day; his also smoked. Minimal alcohol. No substance abuse. 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 He is a FULL CODE. FULL REVIEW OF SYSTEMS: As above, otherwise unrevealing. PHYSICAL EXAMINATION: VITAL SIGNS: Blood pressure 155/60. Pulse 97; it was over 100 when his fever was higher. At the time I saw him his temperature was 39.1; he did go up to 105 and then he came down with treatment. Respiratory rate was 25 with his rigors and tachycardia. Pulse oximeter 96% on O2. When he was not having fever and his temperature was 37.2, his blood pressure was 122/50, pulse was 71 , respirations 21, pulse oximeter 92% on 2 liters minute per nasal cannula. GENERAL: The patient appears appropriate for age. Acute to moderate distress with rigors and myalgias. He has a flattened affect. He is alert and oriented x3. HEENT: Normocephalic. Eyes with pupils equal and reactive to light symmetrically. Extraocular movements intact. Sclerae anicteric. Ears normal. Oropharynx slightly dry. Oral mucosa pink. NECK: Supple, without JVD. LUNGS: Coarse crackles over both bases with decreased aeration at both bases. Bronchovesicular breath sounds over the upper air doty over the back. No increased expiratory phase and no expiratory wheeze. HEART: Tachycardic at the time of my exam, regular rhythm, without murmurs or gallops. bus driver/monitor did show his sinus tachycardia. ABDOMEN: Obese, soft. Bowel sounds are positive. No focalizing tenderness. No guarding or tenderness in the left lower quadrant. GENITALIA: Deferred. RECTAL: Deferred. EXTREMITIES: Nonpitting edema. The patient is obese. Peripheral pulses are decreased but intact. Capillary refill is fair. No cyanosis or clubbing. SKIN: Pale, moist, and warm. No rashes. NEURO: Cranial nerves II-XII grossly intact. No focalizing motor deficits. Babinski's absent. DTRs are physiologic and symmetrical. LABORATORY REVIEW: Sodium 139, potassium 3.9, TCO2 24.4, anion gap 10.6, with these remaining fairly stable with repeat lab - sodium 141, potassium 4.2, TCO2 26.1, with anion gap 10.9. BUN was 23, decreasing to 22. Creatinine was 1.6, decreasing to 1.43, then increasing to 1.57, with this to be followed up in the morning, especially after IV dye with his metformin which is being held. GFR is estimated at about 43 to 48. Glucose was 166, with repeat 138. Lactate 3.8 , repeat 1.6. Calcium was 8.4, remained stable. Magnesium was 1.9. Total bilirubin was 1.1, with the rest of the liver function tests normal. Troponin was initially 0.02, then bumped up to 0.21, and repeat was 0.15, with repeat to be done in the morning. C-reactive protein 8.81. Total protein 7.1. Albumin low at 3.3. Lipase 146. TSH was 2.86. PT/INR was normal and PTT was normal. D-dimer was 3345. White count was normal at 6.6, hemoglobin and hematocrit 13.8/41.6, with MCV 98.6. Platelet count 153,000. Sed rate was up at 36. Urinalysis appeared benign except for increased protein and trace blood. Urine culture was performed. Chest CT was negative for PE, with some scarring but no infiltrates seen. CT of the abdomen did show diverticulosis with a question of stranding and diverticulitis in one segment though the patient has no palpable tenderness. Chest x-ray had no acute disease. Blood cultures were done in the Emergency Room and repeated when he had repeat fever and rigors on the floor.
--- NOTE | 2017-11-15 12:31 | PHARADMIT ---
Addendum entered by Shikha Pate 11/25/17 15:04: Pharmacy Note Subjective pt expects to go home tomorrow Objective vs ok, no fevers last 4 days, ECHO today, liver enzymes going down Assessment Ampicillin IV continues, Md to refer to ID for recommended time to end abx Plan watch for possible change to po abx, waiting for speciation of the bacteroides (send out) Original Note: Addendum entered by Dedra Soria 11/24/17 15:17: Pharmacy Note Subjective pt is hopeful to return home tomorrow per CM note Objective VS-okay FSBG-173 AST-70 ALT-168 Assessment scheduled insulin aspart and glargine ordered yesterday fentanyl discontinued, MD was going to change to po abx this morning but then cancelled them Plan watch LFTS, watch for possible change to po abx, waiting for speciation of the bacteroides (send out) Original Note: Addendum entered by Shikha Pate 11/22/17 10:12: Pharmacy Note Subjective per MD note yesterday pt needing 14 days abx based on severity of diverticulitits and bacteremia Objective temp 38 overnight, BC from 11/18 prelim results no growth x 72 hours Assessment Md ? endocarditis ECHO ordered and nursing to check IV lines for infection and will change IV site, metronidazole and pip/tazo continue Plan watch for ECHO results. possible abx med choice and/or duration to change per results Original Note: Addendum entered by Shikha Pate 11/21/17 14:19: Pharmacy Note Subjective Md expects pt to be here over the weekend Objective vs ok, Assessment pip/tazo dose increased due to micro results, no other med changes noted Plan Original Note: Addendum entered by Vinnie Lind III 11/20/17 14:29: Pharmacy Note Subjective Ambulating hallways, afebrile, feeling better. E-coli resistant to Cipro/Levaquin, sensitive to Zosyn/Ampicillin. Gram negative sepsis diverticulitis Objective VS-OK Temp-36.5C WBC- 8.28 SCr-0.98 K+3.8 Reg BMs Assessment Zosyn continues for now, tp switch to PO ??soon? Plan Possible discharge home on PO ABX if remain afebrile. Original Note: Addendum entered by Vinnie Lind III 11/19/17 17:24: Pharmacy Note Subjective SPIKED FEVER/RIGORS OVERNIGHT, WENT FOR CT OF ABDOMEN TODAY ( ? Abscess).(GRAM-NEGATIVE E-COLI SEPSIS) Objective VS-OK (temp-36.2C) WBC-8.24 Labs-OK BM today. Assessment Zosyn Continues Plan No new MD note yet Original Note: Addendum entered by Dedra Soria 11/18/17 11:49: Pharmacy Note Subjective pt. had fever with rigors yesterday evening; and reported a sharp pulsating pain in right upper abdomen per morning report Objective VS-okay plt-115(up) wbc-8.42 Assessment heparin drip discontinued, protonix discontinued, omeprazole ordered, metoprolol IR changed to CR zosyn continues Plan watch plts, stool cultures still pending Original Note: Addendum entered by Dedra Soria 11/17/17 15:48: Pharmacy Note Subjective pt. still feeling a little weak and continues to have fevers but no rigors per morning report Objective Tmax-38.4 BP-180/74 HR-91 RR-26 h/h-12.3/36.6 plt-100(up) wbc-8.19 Assessment blood culture sensitivities are back it is sensitive to zosyn and other abx, no change in abx yet lactoferrin positive, C.diff was cancelled Plan watch plts, for possible change of abx (narrow therapy) Original Note: Addendum entered by Shikha Pate 11/16/17 11:11: Pharmacy Note Subjective gram neg volodymyr bacteremia, ECHO today Objective pip/tazo abx, plt down to 93, heparin infusion, troponins trending down Assessment possible low plt due to abx, pip/tazo and heparin infusion continues Plan watch plt, BC for sens, stool tests pending Original Note: Admission Pharmacy Clinical Review dehydration, fever, colitis Code Status Full Code Current Weight 100.6 kg Renally Cleared and Narrow Therapeutic Index Meds Crcl ~54.0 mL/min using adjusted body weight current meds okay QTc Value / Action Taken QTc 428 n/a BP Control, Fever BP 110/58 afebrile Electrolytes reviewed within normal limits DVT Prophylaxis on heparin drip Opiate Usage / Scheduled Bowel Regimen Ordered prn/prn Plt/SCr for Heparin / Enoxaparin plt 119 (down from yesterday) SCr 1.49 INR for Warfarin n/a H/H stable, WBC/Bands h/h 12.5/38.0 wbc 9.66 Antibiotic appropriateness zosyn Cultures and Sensitivities blood cultures grew gram negative rods, has additional blood cultures pending, lactoferrin pending and urine culture Surgical ABX d/c within 24 hr n/a DM control / Insulin Dosing BG 154 has sliding scale insulin aspart ordered Heart Failure (Check EF%) (LA's, B-Block, Diuretics) metoprolol, IV to PO Switch n/a Home Meds Reviewed yes Home Meds Not Ordered metformin, naproxen (PRN), omeprazole (has pantoprazole ordered), schisandra (PRN) Comments watch platelets pts own meds have not been brought to or checked by pharmacy yet
[2017-11-15] MEDS: Vitamins B Comp w/C TAB 1 TAB PO (12:34)
[2017-11-15] MEDS: fentaNYL 100 MCG/2 ML VIAL 50 MCG IVP ×2 (13:29→22:32)
[2017-11-15] MEDS: Acetaminophen 325 MG TAB PO (13:30)
[2017-11-15] MEDS: Ketorolac 15 MG/ML VIAL IVP (14:04)
[2017-11-15 15:20] LABS: Troponin I 0.74 ng/mL (0.00-0.06)
[2017-11-15 16:00] LABS: PTT Activated 46.3 sec (21.0-31.4)
[2017-11-15] MEDS: Insulin Aspart 300 UNITS/3 ML PEN SC (17:03)
[2017-11-15] MEDS: Acetaminophen 325 MG TAB 650 MG PO (17:10)
--- NOTE | 2017-11-15 17:19 | NUR.NOTE ---
Nursing Note: See vital sign documentation interventions 1323-patient reports rigors starting Fentanyl, Tylenol, and Toradol were given--see EMAR for times given Patient had rigors for approximately 60 minutes. During the rigors patient's temperature max was 40.2, RR max in the 50's, BP max 161/108, heart rated max into the 140's and oxygen on room air dropped as low as 84%--oxygen applied up to 5L NC. Patient became pale and ashen and LE's mottled during this time. Once patient started coming out of the rigors noted patient had some confusion but was easily reoriented. After about 30 minutes patient was back to baseline--A&O X3 but very tired. Patients color improved and mottling diminished. Patient's , Liyah, in room when patient was recovering from rigors episode. She visited until approximately 1630. During her time here Dr. Vela stepped into the room to check on the patient and update both the patient and spouse on plan of care.
--- NOTE | 2017-11-15 19:27 | PGE_ITS ---
November 15, 2017 >>>>>>>>>>>>>>>>>>>>>>>>> ASSESSMENT AND PLAN: #1: GRAM NEGATIVE DIANNE BACTEREMIA - currently with evidence of potential mild diverticulitis by CAT s can but clinically the patient has been complaining of significant diarrhea, nausea and vomiting over the course of the last two days. Gram negative bacteremia may be on the basis of a GI infection. Will check stool cultures, fecal leukocytes and Clostridium difficile. Given the severity of the patient's symptoms and the degree of elevation of his temperature will init ially treat empirically with Piperacillin-Tazobactam until cultures results are available to guide th erapy. Continue i.v. fluids but given evidence of development of a mild pleural effusion will decrease rate as the patient appears to be stable and no longer tachycardic. Monitor temperatures, vital signs and symptoms very closely. Continue to monitor original and repeat blood culture results. Mr. Westbrook had significant elevation in temperature with an elevated respiratory rate, tachycardia, wi th obvious gram negative dianne bacteremia as well as evidence of organ dysfunction, as manifested by la ctic acid that was greater than 2. The patient's overall picture fits the criteria for sepsis. #2: ELEVATED TROPONIN - mild elevation in Troponin which initially trended up with a concurrent mild elevation in AST in the setting of acute illness and likely underlying sepsis, probably represents d emand ischemia. EKG from admission and repeat EKG from the morning were reviewed and do not appear t o be ischemic. However, the patient does have a history of diabetes, hypertension and dyslipidemia a nd elevation in Troponin continued and worsened and was not equivocal in nature. At this time will a ttempt to treat with continuation of home regimen of statins (Mr. Westbrook apparently has an allergy wit h muscular discomfort to high potency statins), initiate low dose beta sascha therapy, daily aspirin , and 24 to 48 hours of heparin drip and trend Troponins further. It is encouraging that repeat Trop onin later this morning has started to trend down again. Monitor very closely and check an echocardiogram once able, tomorrow. #3: DIABETES. Hold home regimen of Metformin, especially in light of CT with i.v. contrast. Maintain on sliding scale coverage only at this time, as well as an ADA diet. Given GI complaints, however, will maintain patient on full liquid diet. #4: HYPERTENSION - current blood pressures are reasonable, especially in the setting of sepsis. Con tinue to monitor. Does not appear to be on a home antihypertensive regimen. #5: DYSLIPIDEMIA. Continue Pravastatin given intolerance of statin therapy in the past. #6: PROPHYLAXIS - currently on a heparin drip as above. Continue proton pump inhibitor therapy as w johnson. #7: CODE STATUS - FULL CODE. Approximately 45 minutes was spent in coordination of today's care. >>>>>>>>>>>>>>>>>>>>>>>>> SUBJECTIVE: This is a 72-year-old man with a past medical history significant for diabetes, dyslipi demia, hypertension and prior peptic ulcer disease who was admitted from the [facility] Emergency Room on with evidence of fever. Mr. Westbrook had reported an approximate two day history of fevers with intense rigors, malaise, vomitin g and diarrhea. Upon presentation he was noted to be pale and tachycardic, mildly hypoxic and acutel y ill appearing. Work-up in the Emergency Room showed an essentially normal chest x-ray and subsequent CT of the abdom en and pelvis showed potential signs of mild diverticulitis, a condition that the patient has had in the past. His urinalysis was negative. Mr. Westbrook's blood work did not show a significant leukocytosis but his cardiac enzymes were noted to be elevated despite a normal EKG. Following admission Mr. Westbrook went on to develop significant rigors along with very high fevers and a maximum temperature of 40.9. He was noted to be mildly hypotensive at times and very ill appearing while being treated in the Intensive Care Unit. Both sets of blood cultures returned positive for gr am negative dianne bacteremia. Mr. Westbrook was maintained on treatment with i.v. fluids and Pip-Tazo This morning the patient appears clinically improved and he is subjectively feeling better. No othe r events were reported over night. He is currently afebrile and has been so since midnight last nigh t and he is no longer tachycardic. His Troponin initially was elevated to a value of 0.64 and then 0.78 upon recheck this morning. PHYSICAL EXAMINATION: GENERAL - the patient is pale and mildly ill appearing but in no acute distress. VITAL SIGNS - temperature 35.5 and afebrile since midnight, at which time his temperature was 38.0; m aximum temperature was 40.9 at 2300 last night. Blood pressure currently 110/58, heart rate down to 59 from a maximum of 110 yesterday. He is currently 96% on room air. NECK - supple. CARDIOVASCULAR - regular, nontachycardic. No overt rubs, murmurs or gallops appreciated. LUNGS - clear to auscultation bilaterally with minimal bibasilar crackles only. ABDOMEN - bowel sounds present, obese in contour. No significant pain or tenderness, no rebound tend erness noted. VASCULAR - no lower extremity edema. NEURO - cranial nerves II through XII appear grossly intact. No focal deficits noted. The patient i s moving all four extremities. CLINICAL DATA: LABORATORY STUDIES: Sodium 140, potassium 3.8, chloride 107, bicarb 25.4, BUN 22, creatinine down to 1.49 from an origina l value of 1.6, baseline appears to be 1.1 to 1.2. Total bilirubin minimally elevated at 1.4, with mild elevation of AST at 44 with a normal ALT and alk phos. Glucose was 154. Lactate has normalized at 1.1, down from a prior value of 1.6 and an original value of 3.8. Troponin initially was 0.02, elevated to 0.21, 0.64 and 0.78, prior to down trending to 0.48 later th is morning. Normal WBC with 86% neutrophils, 6.9 lymphocytes, 6.5 monocytes and no evidence of bandemia. ESR is elevated at 36. Hemoglobin mildly low at 12.5 with platelet count of 119 which is low as well. Urinalysis with negative nitrite, negative leukocyte esterase, trace blood with zero RBCs, 5-10 WBCs noted. MICROBIOLOGY: Both sets of initial blood cultures showing gram negative rods. Repeat blood culture s are pending. STOOL STUDIES: Including fecal leukocyte, Clostridium difficile and stool cultures are pending as we ll at this time. IMAGING: Chest x-ray with no definite evidence of acute cardiopulmonary disease. CT of the abdomen and pelvis with i.v. contrast showing diverticulosis with some thickening of the mi d sigmoid colon and slight surrounding fatting stranding with the possibility of early mild diverticu litis would have to be considered. CT Angiogram of the chest showing no evidence of pulmonary embolus. Mild interstitial lung scarring and/or atelectasis. No significant focal consolidations. No specific etiology identified for the pa tient's symptoms. Chest x-ray on 11/15 showed mild left basilar atelectasis and/or infiltrate and/or effusion and/or sca rring.
[2017-11-15] MEDS: Pantoprazole 40 MG VIAL IVP (20:26)
[2017-11-15] MEDS: Pravastatin 20 MG TAB PO (22:07)
[2017-11-15] MEDS: Ibuprofen 800 MG TAB PO (22:27)
[2017-11-15] MEDS: Normal Saline 1,000 ML 75 ML IV (22:38)
[2017-11-16] VITALS (34 sets, daily range): BP systolic 97–154; BP diastolic 45–88; PULSE 59–83; RESP 14–29; TEMP 36.2–37.9; O2SAT 92–97
[2017-11-16] MEDS: Acetaminophen 325 MG TAB 650 MG PO ×5 (00:27→23:12)
[2017-11-16 06:49] LABS: Abs Immature Grans 0.02 k/cumm (0.0-0.09); Absolute Basophil Count 0.03 k/cumm (0.0-0.2); Absolute Eosinophil Count 0.15 k/cumm (0.0-0.7); Absolute Lymphocyte Count 0.61 k/cumm (1.2-3.4); Absolute Monocyte Count 0.51 k/cumm (0.11-0.7); Absolute Neutrophil Count 6.88 k/cumm (1.2-6.7); Basophils % 0.4; Eosinophils % 1.8; HCT 35.8 % (40.0-50.0); Immature Grans % 0.2; Lymphocytes % 7.4; Mean Corp. HGB Concentration 33.5 g/dL (32.0-36.0); Mean Corpuscular Hemoglobin 30.2 pg (27.0-33.0); Mean Corpuscular Volume 89.9 fL (80-95); Mean Platelet Volume 10.2 fL (8.0-11.0); Monocytes % 6.2; RBC 3.98 m/cumm (4.50-6.00); RBC Distribution Width 15.1 % (11.8-14.1)
[2017-11-16 06:57] LABS: Anion Gap 11.2 mmol/L (3-11); BUN 17 mg/dL (7-18); CO2 20.8 mmol/L (21.0-32.0); CREATININE 1.36 mg/dL (0.70-1.30); Chloride 107 mmol/L (98-107); Estimated GFR 51.66 (mL/min/1.73m2); Glucose 120 mg/dL (70-100); Potassium 3.6 mmol/L (3.5-5.1); Sodium 139 mmol/L (136-145)
[2017-11-16 07:04] LABS: Magnesium 2.2 mg/dL (1.8-2.4)
[2017-11-16 07:06] LABS: PTT Activated 50.3 sec (21.0-31.4)
[2017-11-16 07:12] LABS: Troponin I 0.58 ng/mL (0.00-0.06)
[2017-11-16 07:14] LABS: Diff Comment PLT Morph Reviewed; Platelet Count 93 x1000/uL (130-400); RBC Morphology Normal
[2017-11-16] MEDS: Vitamins B Comp w/C TAB 1 TAB PO (08:15)
[2017-11-16] MEDS: Lactobacillus Acidophilus CAP 1 CAP PO (08:15)
[2017-11-16] MEDS: Ibuprofen 800 MG TAB PO ×2 (08:15→20:53)
[2017-11-16] MEDS: Metoprolol 12.5 MG TAB 6.25 MG PO ×2 (08:16→20:55)
[2017-11-16] MEDS: Aspirin 81 MG CHEW PO (08:16)
--- NOTE | 2017-11-16 08:58 | MERGE_ITS ---
*[facility]* *[facility]* [address] [place] [address] Date of study: 11/16/2017 Transthoracic Echocardiography M-mode, complete 2D, complete spectral Doppler, and color Doppler *STUDY CONCLUSIONS* Impressions: No valvular vegetations identified on this transthoracic study. Summary: 1. Left ventricle: The cavity size was normal. Systolic function was normal. The estimated ejection fraction was 60-65%. Diastolic parameters were normal. There was no evidence of elevated ventricular filling pressure by Doppler parameters. 2. Right ventricle: The cavity size was mildly dilated. Systolic function was moderately reduced. 3. Atrial septum: No defect or patent foramen ovale was identified. 4. Tricuspid valve: There was moderate regurgitation. 5. Pulmonary arteries: Pulmonary systolic pressure was in the range of 30mm Hg to 40mm Hg. 6. Inferior vena cava: The vessel was normal in size. The respirophasic diameter changes were in the normal range (greater than or equal to 50%), consistent with normal central venous pressure. *PATIENT PRESENTATION* Height: 177.8cm ((70in) ) S/D Pressure: 97 / 49 Weight: 100.2kg ((220.5lb) ) BSA: 2.25m^2 Test start time: 09:10 AM. Test stop time: 09:55 AM. 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 Pertinent images and digital data are archived for permanent storage and are available for subsequent review. No prior study was available for comparison. Study status: Routine. Transthoracic echocardiography. M-mode, complete 2D, complete spectral Doppler, and color Doppler. A Transthoracic Echocardiogram was performed. Scanning was performed from the parasternal, apical, subcostal, and suprasternal notch acoustic windows. Images were obtained using an [id number] cardiac ultrasound machine. Image quality was adequate. Study completion: The patient tolerated the procedure well. History: PMH: Elevated troponin. DM HTN Dyslipidemia, acute fibrile illness, fever, colitis. *CARDIAC ANATOMY* Left ventricle: The cavity size was normal. Systolic function was normal. The estimated ejection fraction was 60-65%. The tissue Doppler parameters were normal. Diastolic parameters were normal. There was no evidence of elevated ventricular filling pressure by Doppler parameters. Aortic valve: Trileaflet. Doppler: There was no stenosis. There was no regurgitation. VTI ratio of LVOT to aortic valve: 0.88. Valve area (VTI): 3.2cm^2. Indexed valve area (VTI): 1.4cm^2/m^2. Peak velocity ratio of LVOT to aortic valve: 0.79. Valve area (Vmax): 2.9cm^2. Indexed valve area (Vmax): 1.3cm^2/m^2. Mean velocity ratio of LVOT to aortic valve: 0.75. Valve area (Vmean): 2.7cm^2. Indexed valve area (Vmean): 1.2cm^2/m^2. Mean gradient (S): 3.4mm Hg. Peak gradient (S): 6.8mm Hg. Aorta: Aortic root: The aortic root was normal in size. Ascending aorta: The ascending aorta was mildly dilated. Mitral valve: Doppler: There was no evidence for stenosis. There was no significant regurgitation. Valve area by pressure half-time: 4.5cm^2. Indexed valve area by pressure half-time: 2cm^2/m^2. Peak gradient (D): 2.1mm Hg. Left atrium: The atrium was normal in size. Atrial septum: No defect or patent foramen ovale was identified. Right ventricle: The cavity size was mildly dilated. Systolic function was moderately reduced. Pulmonic valve: Doppler: There was no evidence for stenosis. There was mild regurgitation. Peak gradient (S): 2.5mm Hg. Tricuspid valve: Doppler: There was moderate regurgitation. Pulmonary artery: Poorly visualized. Pulmonary systolic pressure was in the range of 30mm Hg to 40mm Hg. Right atrium: The atrium was normal in size. Pericardium: There was no pericardial effusion. Systemic veins: Inferior vena cava: The vessel was normal in size. The respirophasic diameter changes were in the normal range (greater than or equal to 50%), consistent with normal central venous pressure. Baseline ECG: Normal sinus rhythm. Measurements Left ventricle Value Reference LV ID, ED, PLAX 5.2 cm 3.5 - 6.0 LV ID, ES, PLAX 3.2 cm 2.1 - 4.0 LV PW thickness, ED, PLAX 1.0 cm LV end-diastolic volume, 1-p A2C 116 ml LV ejection fraction, 1-p A2C 59 % LV end-diastolic volume, 1-p A4C 89 ml LV ejection fraction, 1-p A4C 52 % LV e', lateral 0.093 m/sec LV E/e', lateral 8 LV e', medial 0.082 m/sec LV E/e', medial 9 LV e', average 0.087 m/sec LV E/e', average 8 Ventricular septum Value Reference IVS thickness, ED, PLAX 1.0 cm LVOT Value Reference LVOT ID, A-P 2.2 cm LVOT area 3.7 cm^2 LVOT peak velocity, S 1.03 m/sec LVOT mean velocity, S 0.66 m/sec LVOT VTI, S 23.4 cm LVOT peak gradient, S 4.3 mm Hg LVOT mean gradient, S 2.1 mm Hg Stroke volume (SV), LVOT DP 86 ml Stroke index (SV/bsa), LVOT DP 38 ml/m^2 Aortic valve Value Reference Aortic valve peak velocity, S 1.3 m/sec Aortic valve mean velocity, S 0.89 m/sec Aortic valve VTI, S 26.5 cm Aortic mean gradient, S 3.4 mm Hg Aortic peak gradient, S 6.8 mm Hg VTI ratio, LVOT/AV 0.88 Aortic valve area, VTI 3.2 cm^2 Velocity ratio, peak, LVOT/AV 0.79 Aortic valve area, peak velocity 2.9 cm^2 Velocity ratio, mean, LVOT/AV 0.75 Aortic valve area, mean velocity 2.7 cm^2 Aortic valve area/bsa, mean velocity 1.2 cm^2/m^2 Aorta Value Reference Aortic root ID, ED 3.6 cm Ascending aorta ID, A-P, S 3.6 cm RVOT Value Reference RVOT VTI, S 18.9 cm Left atrium Value Reference LA ID, A-P, ES 3.9 cm LA ID/bsa, A-P 1.7 cm/m^2 <=2.2 LA area, ES, A4C (H) 23.6 cm^2 8.8 - 23.4 LA area, ES, A2C 21 cm^2 LA volume/bsa, ES, 1-p A4C 37 ml/m^2 LA volume, ES, 2-p 65 ml LA volume/bsa, ES, 2-p 29 ml/m^2 LA/aortic root ratio 1.07 Mitral valve Value Reference Mitral E-wave peak velocity 0.72 m/sec Mitral A-wave peak velocity 0.89 m/sec Mitral deceleration time 169 ms 150 - 230 Mitral pressure half-time 49 ms Mitral peak gradient, D 2.1 mm Hg Mitral E/A ratio, peak 0.81 Mitral valve area, PHT, DP 4.5 cm^2 Tricuspid valve Value Reference Tricuspid regurg peak velocity 2.8 m/sec Tricuspid peak RV-RA gradient 31.1 mm Hg Right atrium Value Reference RA area, ES, A4C 16.5 cm^2 8.3 - 19.5 Pulmonic valve Value Reference Pulmonic peak gradient, S 2.5 mm Hg Legend: (L) and (H) david values outside specified reference range. I have personally reviewed the images and have reviewed and edited the reported findings. Electronically signed by Daquan Wayne MD 11/16/2017 11:04
[2017-11-16] MEDS: Potassium Chloride 20 MEQ TABCR 40 MEQ PO (10:49)
[2017-11-16] MEDS: Insulin Aspart 300 UNITS/3 ML PEN SC ×2 (12:20→16:48)
--- NOTE | 2017-11-16 12:24 | PDOC.CMPRO ---
Date of Service: 11/16/17 Time of Service: 12:24 Care Management Progress Note S/O: Clovis is sitting up in his chair when this health technical writer visits with him this morning. He states that he is feeling okay and that he had a period of rigors though It wasn't as bad this time. Clovis states that he has been told that he may be able to return home after 48 hours with no rigors. He states that he feels he will be here for a couple more days. Clovis's Liyah came in to meet with him yesterday, he states that she will not visit today as he now has a head cold and does not want her to become sick. No change in plans at this time. A: 72 y/o male admitted 11/14/17 for Diverticulitis, Dehydration. P: Clovis will return home with no anticipated services. He will f/u with PCP and plan of care as prescribed. Liyah to transport when ready.
--- NOTE | 2017-11-16 12:26 | PGE_ITS ---
DATE: NOVEMBER 16, 2017 @ 12:26 ASSESSMENT/PLAN: 1. Sepsis based on significant fevers with an elevated respiratory rate, heart rate and gram negative volodymyr bacteremia, along with evidence of organ dysfunction as manifested by an elevated lactic acid and creatinine. Overall appears to be improving. Initial gram negative volodymyr coverage provided empirically with Piperacillin/ Tazobactam given severity of symptoms and overall condition. Today blood cultures showing gram positive volodymyr as well growing in one bottle. As the patient's infection is presumed to be potentially GI in origin, this would make Corynebacterium and Clostridium species a possibility. At this time Zosyn is providing adequate coverage. The case was discussed with ID who is in full agreement. Continue to await stool cultures, fecal leukocytes and C-diff which have been ordered but not yet collected. Continue supportive therapy. 2. Elevated troponin Mild elevation in troponin in a setting of sepsis likely representing dependent ischemia, especially given EKG that was nonischemic in appearance. However as the patient has a history of hypertension, diabetes and dyslipidemia , he may have underlying coronary artery disease. Currently providing a cool-off period with therapeutic anticoagulation with Heparin drip and maintaining home regimen of statin and aspirin with initiation of low dose beta sascha therapy with plans to discontinue active anticoagulation once the patient's sepsis syndrome has resolved in 24-48 hours. Please note that an echocardiogram was also obtained showing evidence of potential RV strain with a moderate decrease in RV systolic function as well as elevated pulmonary pressures along with moderate tricuspid regurgitation. Possibility for pulmonary embolism was entertained - however Mr. Westbrook was just admitted in the evening of the , at which time along with a CAT scan of his abdomen and pelvis he also had a CT angiogram performed of his chest showing no evidence of PE. At that time, he also had an elevated troponin making PE unlikely source for the elevation in troponin. Plan currently is to treat current infection and stabilize the patient with a potential stress test as an out-patient. 3. Diabetes Hold off on Metformin especially in light of recent CT with IV contrast. Continue to maintain on sliding scale coverage as well as ADA diet. Current blood sugars have been in the 100s mostly with a one-time value of 218. 4. Hypertension Current blood pressures are reasonable especially in the setting of sepsis. Continue to monitor. Currently on low dose beta sascha therapy as stated above. 5. Dyslipidemia Continue Pravastatin. 6. Prophylaxis Currently on therapeutic Heparin drip as above. Continue proton pump inhibitor therapy as well. 7. Code Status Full code. Greater than 45 minutes were spent in coordination of today's care. SUBJECTIVE: 72 year-old man with past medical history significant for diabetes, hypertension and high cholesterol admitted from the [facility] Emergency Room on November 14 with complaints of fever, evidence of bacteremia by blood cultures. Mr. Westbrook had a reported 2 day history of fevers with intense rigors at home, malaise and diarrhea with some vomiting. Upon presentation he was noted to be pale, tachycardic and acutely ill appearing. Chest x-ray was normal and a subsequent CT of the abdomen and pelvis showed potential signs of mild or early diverticulitis, a condition that the patient has endorsed having in the past. Urinalysis was negative. He was also noted to have mild elevation in troponin. Following admission Mr. Westbrook went on to develop significant rigors along with fairly high temperatures with a maximum temperature of 40.9. He was also noted to be mildly hypotensive and ill appearing requiring admission to the Intensive Care Unit. Both sets of blood cultures returned positive for gram negative rods , and he was started on Piperacillin/Tazobactam. Since that time one additional set of blood cultures came back with gram positive rods. Overall Mr. Westbrook appears to be improving today and while still occasionally febrile with rigors, they have diminished in frequency and intensity. His last troponin also downtrended with value of 0.58. An echocardiogram was also obtained showing moderately reduced RV function. No other events were reported overnight. EXAMINATION: General: The patient is less ill appearing today, appears to be more comfortable and in no acute distress. Vital Signs: Temperature 37.3, with T-max of 37.8 overnight, 40.2 at 2:00 p.m. yesterday. Blood pressure is currently 137/58, heart rate 68, pulse oximetry 95 % on room air Neck: Supple. Cardiovascular: Regular, non-tachycardic. Pulmonary: Mild bibasilar left greater than right crackles. Abdomen: Bowel sounds present, soft, nontender, nondistended. Vascular: No lower extremity edema. LABORATORY DATA: Sodium 139, potassium 3.6, chloride 107, bicarb 20.8 and an anion gap of 11.2, creatinine down to 1.36 from 1.49 yesterday, 1.57 at the time of admission. Glucose 120. Troponin down to 0.58 from a peak of 0.74. CBC with white count of 8.2 with 84% neutrophils, 7.4 lymphocytes, 6.2 monocytes and no bandemia. Hemoglobin stable at 12. Platelet count low at 93, down from 119 yesterday and 153 the day before. Urine culture with less than 10,000 colonies of a mixed gram positive quynh. Blood cultures were one set growing gram negative rods, second set growing gram negative volodymyr as well as gram positive rods, not yet speciated.
--- NOTE | 2017-11-16 12:27 | CMPROGNOTE_ITS ---
Date of Service: 11/16/17 Time of Service: 12:24 Care Management Progress Note S/O: Clovis is sitting up in his chair when this residential mortgage underwriter visits with him this morning. He states that he is feeling okay and that he had a period of rigors though It wasn't as bad this time. Clovis states that he has been told that he may be able to return home after 48 hours with no rigors. He states that he feels he will be here for a couple more days. Clovis's Liyah came in to meet with him yesterday, he states that she will not visit today as he now has a head cold and does not want her to become sick. No change in plans at this time. A: 72 y/o male admitted 11/14/17 for Diverticulitis, Dehydration. P: Clovis will return home with no anticipated services. He will f/u with PCP and plan of care as prescribed. Liyah to transport when ready.
[2017-11-16] MEDS: Normal Saline Flush 10 ML SYR IVP (20:57)
[2017-11-16] MEDS: Pantoprazole 40 MG VIAL IVP (20:57)
[2017-11-16] MEDS: Pravastatin 20 MG TAB PO (21:12)
[2017-11-17] VITALS (32 sets, daily range): BP systolic 124–180; BP diastolic 59–76; PULSE 62–92; RESP 14–27; TEMP 36–38.4; O2SAT 93–96
[2017-11-17] MEDS: Acetaminophen 325 MG TAB 650 MG PO ×4 (05:59→23:17)
[2017-11-17] MEDS: Normal Saline Flush 10 ML SYR IVP ×5 (05:59→23:17)
[2017-11-17 07:18] LABS: Abs Immature Grans 0.03 k/cumm (0.0-0.09); Absolute Basophil Count 0.02 k/cumm (0.0-0.2); Absolute Eosinophil Count 0.25 k/cumm (0.0-0.7); Absolute Lymphocyte Count 0.74 k/cumm (1.2-3.4); Absolute Monocyte Count 0.54 k/cumm (0.11-0.7); Absolute Neutrophil Count 6.61 k/cumm (1.2-6.7); Basophils % 0.2; Eosinophils % 3.1; HCT 36.6 % (40.0-50.0); HGB 12.3 g/dL (13.5-17.5); Immature Grans % 0.4; Mean Corp. HGB Concentration 33.6 g/dL (32.0-36.0); Mean Corpuscular Hemoglobin 30.1 pg (27.0-33.0); Mean Corpuscular Volume 89.5 fL (80-95); Mean Platelet Volume 10.9 fL (8.0-11.0); Monocytes % 6.6; Neutrophils % 80.7; RBC 4.09 m/cumm (4.50-6.00); RBC Distribution Width 15.4 % (11.8-14.1); White Blood Cell Count 8.19 k/cumm (4.4-10.8)
[2017-11-17 07:28] LABS: Anion Gap 10.4 mmol/L (3-11); BUN 13 mg/dL (7-18); CO2 22.6 mmol/L (21.0-32.0); CREATININE 1.03 mg/dL (0.70-1.30); Calcium 8.1 mg/dL (8.5-10.1); Chloride 107 mmol/L (98-107); Glucose 147 mg/dL (70-100); Potassium 3.8 mmol/L (3.5-5.1); Sodium 140 mmol/L (136-145)
[2017-11-17 07:44] LABS: Platelet Count 100 x1000/uL (130-400)
[2017-11-17] MEDS: Metoprolol 12.5 MG TAB 6.25 MG PO ×2 (08:46→20:19)
[2017-11-17] MEDS: Ascorbic Acid 500 MG TAB 125 MG PO (08:47)
[2017-11-17] MEDS: Vitamins B Comp w/C TAB 1 TAB PO (08:48)
[2017-11-17] MEDS: Lactobacillus Acidophilus CAP 1 CAP PO (08:48)
[2017-11-17] MEDS: Aspirin 81 MG CHEW PO (08:48)
[2017-11-17 09:02] LABS: PTT Activated 34.5 sec (21.0-31.4)
--- NOTE | 2017-11-17 09:43 | PDOC.CMPRO ---
Date of Service: 11/17/17 Time of Service: 09:43 Care Management Progress Note S/O: CM met with Josue at the bedside he states he feels weak today however better as he is not experiencing the rigors. He was able to ambulate around the unit today. He is having some URI symptoms and has both of his nostrils plugged with tissue. He reports that family is caring for his spouse Liyah while he is in the hospital. Josue continues on IV antibiotics. A: Josue is a 72 year old male admitted with sepsis and positive blood cultures. P: Anticipate no change in patients status today. Josue will return home when medically ready per provider. His family will transport him home and time of discharge. No additional services are needed at time of discharge. CM to continue to provide support to Pt, family and care team on going discharge planning and disposition.
[2017-11-17] MEDS: Insulin Aspart 300 UNITS/3 ML PEN SC (11:43)
[2017-11-17] MEDS: Ibuprofen 800 MG TAB PO (13:42)
[2017-11-17] MEDS: fentaNYL 100 MCG/2 ML VIAL 50 MCG IVP (14:07)
--- NOTE | 2017-11-17 15:29 | DM INPTCON_ITS ---
DESCRIPTION/ASSESSMENT: Appreciate diabetes consult for Josue Westbrook who is hospitalized with sepsis. 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 He manages his diabetes at home with Metformin with A1c 6.9. Blood sugars 126-167 today with 24 grams carbohydrate at breakfast; otherwise 100-222 mg/dl range. Carbohydrate intake is not consistently recorded, thus it is difficult to assess if hyperglycemia is a result of food or disease process. He is receiving insulin correction at the sensitive level. He is just now receiving a regular diet with normal consistency. He is not being watched for carbohydrate. INTERVENTION: No identified pattern of glycemic control warranting insulin change. Will follow blood sugars to see if pattern or reasonable control with sensitive insulin correction is sufficient. Suggest carbohydrate controlled food plan for him so we can assess the impact of carbohydrate on his blood sugars. PLAN: Will follow blood sugars and follow up with him prior to discharge when he feels better.
[2017-11-17 16:01] LABS: PTT Activated 34.5 sec (21.0-31.4)
--- NOTE | 2017-11-17 19:51 | PGE_ITS ---
DATE: November 17, 2017 ASSESSMENT AND PLAN: #1. Gram-negative sepsis. Both blood culture sets are growing out E. coli. Sensitivities on the fi rst set show resistance to fluoroquinolones, otherwise pansensitive. The plan is to continue the Zos yn. He still is having some breakthrough fevers. If this continues, would need to consider re-CT sc anning him to look for an abscess in the abdomen. He still has stool cultures pending. #2. Elevated troponins. He did have critical elevation of troponins which was believed to be demand ischemia. He has had no recurrent chest pain and otherwise feels fine. Continue to monitor. #3. Diabetes. Continue to hold metformin. Continue sliding scale coverage and a diabetic diet. #4. Hypertension. Blood pressures stable. #5. Code status - remains a FULL CODE. Continue to monitor in the ICU. REASON FOR ADMISSION: Gram-negative sepsis/diverticulitis. SUBJECTIVE: He is feeling quite a bit better. He has not had any further rigors. He had a low-grad e temperature of 37.9 last evening at 2030 hours and spiked a temperature to 38.5 at 2:00 p.m. this a fternoon. Otherwise, intervals fever free and overall is feeling markedly better. He does feel prof ound weakness but got up and walked with nurses today. Denies any abdominal pain. His appetite is good. No respiratory issues. No urinary issues. OBJECTIVE: Vital signs: Temperature 38.2. Blood pressure 142/59. Respiratory rate 22. Pulse 92. Saturation 94% on room air. General: On exam he is smiling, coherent. He appeared overall comfortable and in good spirits. Ful ly cooperative with exam. Lungs: Sitting him upright his lung sounds showed a few rales at the lower portion of both bases and some expansion type rales in the upper lung doty bilaterally. Otherwise, good air movement. Heart: Heart sounds regular. I do not hear a significant murmur. Abdomen: Quite benign, soft, nontender. No focal areas of tenderness. Lower extremities: Just trace edema bilaterally. LABORATORY EVALUATION: White count is 8.19 thousand, hemoglobin 12.3, hematocrit 36.6, platelets 100 ,000, 80 segs, 9 lymphs, no bands. Sodium 140, potassium 3.8, BUN 13, creatinine 1.03, blood sugar 147, magnesium 2.0. Echocardiogram shows EF of 60-65%, mild decreased RV function, moderate TR.
[2017-11-17] MEDS: Pantoprazole 40 MG VIAL IVP (20:19)
[2017-11-17] MEDS: Pravastatin 20 MG TAB PO (20:29)
[2017-11-17 23:46] LABS: PTT Activated 38.6 sec (21.0-31.4)
[2017-11-18] VITALS (15 sets, daily range): BP systolic 128–170; BP diastolic 62–81; PULSE 56–77; RESP 16–23; TEMP 36.6–39.2; O2SAT 95–100
[2017-11-18] MEDS: Normal Saline Flush 10 ML SYR IVP ×5 (05:59→19:48)
[2017-11-18] MEDS: Acetaminophen 325 MG TAB 650 MG PO ×3 (05:59→18:02)
[2017-11-18 06:55] LABS: Abs Immature Grans 0.03 k/cumm (0.0-0.09); Absolute Basophil Count 0.06 k/cumm (0.0-0.2); Absolute Eosinophil Count 0.56 k/cumm (0.0-0.7); Absolute Lymphocyte Count 1.29 k/cumm (1.2-3.4); Absolute Monocyte Count 1.03 k/cumm (0.11-0.7); Absolute Neutrophil Count 5.45 k/cumm (1.2-6.7); Basophils % 0.7; Eosinophils % 6.7; HCT 34.9 % (40.0-50.0); HGB 11.7 g/dL (13.5-17.5); Immature Grans % 0.4; Lymphocytes % 15.3; Mean Corp. HGB Concentration 33.5 g/dL (32.0-36.0); Mean Corpuscular Hemoglobin 29.5 pg (27.0-33.0); Mean Corpuscular Volume 87.9 fL (80-95); Mean Platelet Volume 11.1 fL (8.0-11.0); Monocytes % 12.2; Neutrophils % 64.7; Platelet Count 115 x1000/uL (130-400); RBC 3.97 m/cumm (4.50-6.00); RBC Distribution Width 15.5 % (11.8-14.1); White Blood Cell Count 8.42 k/cumm (4.4-10.8)
[2017-11-18 07:09] LABS: PTT Activated 42.2 sec (21.0-31.4)
[2017-11-18 07:12] LABS: Anion Gap 12.7 mmol/L (3-11); BUN 15 mg/dL (7-18); CO2 21.3 mmol/L (21.0-32.0); CREATININE 1.11 mg/dL (0.70-1.30); Calcium 8.2 mg/dL (8.5-10.1); Chloride 107 mmol/L (98-107); Glucose 146 mg/dL (70-100); Potassium 3.7 mmol/L (3.5-5.1); Sodium 141 mmol/L (136-145)
[2017-11-18] MEDS: Lactobacillus Acidophilus CAP 1 CAP PO (08:01)
[2017-11-18] MEDS: Aspirin 81 MG CHEW PO (08:01)
[2017-11-18] MEDS: Metoprolol 12.5 MG TAB 6.25 MG PO (08:01)
[2017-11-18] MEDS: Vitamins B Comp w/C TAB 1 TAB PO (08:01)
[2017-11-18 08:58] LABS: Troponin I 0.05 ng/mL (0.00-0.06)
[2017-11-18] MEDS: Insulin Aspart 300 UNITS/3 ML PEN SC (11:46)
[2017-11-18 12:06] LABS: Campylobacter PCR SEE COMMENTS; Salmonella PCR SEE COMMENTS; Shiga Toxin PCR SEE COMMENTS; Shigella/Enteroinvasive Ecoli SEE COMMENTS
--- NOTE | 2017-11-18 12:44 | NUR.NOTE ---
1112l PT. TRANSFERRED TO MS FLOOR FROM ICU. A&0X3, VSS, AMBULATORY. FS 201. LS FINE CRACKLES /DIMINISHED IN BASES. HS WNL Nursing Note:
--- NOTE | 2017-11-18 14:29 | PDOC.CMPRO ---
Date of Service: 11/18/17 Time of Service: 14:29 Care Management Progress Note S/O: Clovis is doing well today, he has been moved out to the Med/Surg unit. Clovis is on IV Zosyn at this time. CM reviewed DC plan which remains unchanged at this time. Clovis is very independent at and will return home when ready. A: Josue is a 72 year old male admitted with sepsis and positive blood cultures. P: Anticipate no change in patients status today. Josue will return home when medically ready per provider. His family will transport him home at time of discharge. No additional services are needed at time of discharge. CM to continue to provide support to Pt, family and care team on going discharge planning and disposition.
--- NOTE | 2017-11-18 15:55 | CHAPLAIN ---
Clovis was getting ready to leave the ICU and be transferred to Med/Surg when I visited. He told me about his admission and treatment. 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 He was arranging for a Reiki treatment later today, and had done some tapping therapy on his self, which had clear up a lower, right quadrant pain. 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 Clovis said a couple of friends and family members have offered to stay with Liyah and provide her with rides. I'll continue to visit Clovis.
[2017-11-18] MEDS: Enoxaparin 40 MG/0.4 ML SYR SC (18:02)
[2017-11-18] MEDS: Pravastatin 20 MG TAB PO (19:56)
--- NOTE | 2017-11-18 20:06 | PGE_ITS ---
DATE: November 18, 2017 ASSESSMENT AND PLAN: #1. E. coli septicemia. Thought to be secondary to diverticulitis. He is on IV Zosyn. His fever c urve is finally improving. I think if he got a further spike in fever or rigors repeat blood culture s would be recommended. At this point, continue on the IV Zosyn to complete a 7-day course and then ideally 7 more days of oral antibiotic to fully treat this. Hold on repeat CT scan of the abdomen wh ich is the contingency plan if he spikes a fever to look for abscess formation. #2. Demand ischemia. His troponins have come back down to normal. We discontinued the heparin infu lebron which he was on for 48 hours. We will change his beta sascha to Toprol-XL 25 mg daily. Contin ue aspirin and statin therapy for presumed ASCVD. Outpatient MPI testing recommended once stable. #3. Diabetes. Still holding metformin. Continue sliding scale aspart coverage and diabetic diet. #4. Hypertension. Blood pressure is stable. #5. Disposition. He remains a FULL CODE. Transferred out of the ICU to Med/Surg today. Will add L ovenox DVT prophylaxis. REASON FOR ADMISSION: Gram-negative sepsis and diverticulitis. SUBJECTIVE: He did have an episode of fever and rigors late yesterday afternoon but has been afebril e since that time. He continues to report feeling quite a bit better. His appetite is good. He has been up walking around. OBJECTIVE: Vital signs: Temperature 37.2. His last febrile episode 38.2 at 6:00 p.m. last night. General: On exam he is in good spirits. He is alert, coherent, and lucid. Lungs: His lung sounds are clear bilaterally. Heart: Heart sounds are regular, no murmur. Abdomen: Soft, nontender. He had had a twinge of pain in the right upper quadrant but it was nonten rafael on exam today. LABORATORY EVALUATION: White count 8.42 thousand, hemoglobin 11.7, hematocrit 34.9, platelets 115,00 0, 64 segs, 15 lymphs, no bands. Sodium 141, potassium 3.7, BUN 15, creatinine 1.11, blood sugar 146. Troponin 0.05.
[2017-11-18] MEDS: Ibuprofen 800 MG TAB PO (20:21)
--- NOTE | 2017-11-18 20:22 | NUR.NOTE ---
Nursing Note: Patient rang his call light to say that he is in rigors again. Patient states that he went to the bathroom to wash up for the night and only got his teeth brushed before he started shaking.
[2017-11-19] VITALS (11 sets, daily range): BP systolic 153–181; BP diastolic 71–87; PULSE 54–73; RESP 18–20; TEMP 35.6–37.1; O2SAT 96–99
[2017-11-19] MEDS: Acetaminophen 325 MG TAB 650 MG PO ×5 (00:35→23:54)
[2017-11-19] MEDS: Normal Saline Flush 10 ML SYR IVP ×5 (00:37→23:56)
[2017-11-19 06:54] LABS: Abs Immature Grans 0.07 k/cumm (0.0-0.09); HCT 35.4 % (40.0-50.0); HGB 11.8 g/dL (13.5-17.5); Mean Corp. HGB Concentration 33.3 g/dL (32.0-36.0); Mean Corpuscular Hemoglobin 29.2 pg (27.0-33.0); Mean Corpuscular Volume 87.6 fL (80-95); Mean Platelet Volume 10.7 fL (8.0-11.0); Platelet Count 143 x1000/uL (130-400); RBC 4.04 m/cumm (4.50-6.00); RBC Distribution Width 15.6 % (11.8-14.1); White Blood Cell Count 8.24 k/cumm (4.4-10.8)
[2017-11-19 06:59] LABS: Anion Gap 8.9 mmol/L (3-11); BUN 15 mg/dL (7-18); CO2 25.1 mmol/L (21.0-32.0); CREATININE 1.11 mg/dL (0.70-1.30); Calcium 8.2 mg/dL (8.5-10.1); Chloride 107 mmol/L (98-107); Glucose 125 mg/dL (70-100); Potassium 3.7 mmol/L (3.5-5.1); Sodium 141 mmol/L (136-145)
[2017-11-19 07:29] LABS: Absolute Neutrophil Count 4.78 k/cumm (1.2-6.7)
[2017-11-19 07:30] LABS: Absolute Eosinophil Count 0.33 k/cumm (0.0-0.7); Absolute Lymphocyte Count 2.22 k/cumm (1.2-3.4); Absolute Monocyte Count 1.07 k/cumm (0.11-0.7); Atypical Lymphocytes % 2; Diff Comment Manual Differential
[2017-11-19 07:31] LABS: Microcytosis 1+; Target Cells 2+
[2017-11-19] MEDS: Aspirin 81 MG CHEW PO (08:01)
[2017-11-19] MEDS: Ascorbic Acid 500 MG TAB 125 MG PO (08:01)
[2017-11-19] MEDS: Metoprolol CR 25 MG TABCR PO (08:01)
[2017-11-19] MEDS: Omeprazole 20 MG CAPCR PO (08:03)
[2017-11-19] MEDS: Lactobacillus Acidophilus CAP 1 CAP PO (08:03)
[2017-11-19] MEDS: Vitamins B Comp w/C TAB 1 TAB PO (08:03)
--- NOTE | 2017-11-19 09:42 | PDOC.CMPRO ---
Care Management Progress Note S/O: Clovis appeared content while ambulating through the hallways independently. He remains well aware of discharge plan which remains unchanged at this time. He was sitting in his chair when CM met with him; he reported being NPO and shared concerns around recurrent rigors and fevers and stated he would have and abdominal CT today to inform next steps. Clovis is very independent at baseline and will return home when ready. A: Josue is a 72 year old male admitted to [facility] 11/14/17 with sepsis and positive blood cultures, dehydration, fever and colitis. P: Josue will return home when medically ready per provider. His family will transport him home at time of discharge. No additional services anticipated.
--- NOTE | 2017-11-19 14:37 | CHAPLAIN ---
Clovis was sitting up drinking the concoction that he he needs to consume before he has another CAT scan. He said he is feeling better, but had another bout of rigors last night. He is hoping the scan will provide more information about what is going on with him. 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 He is working to make sure she has the transportation for the appointment she needs to get to. Clovis said he relaxing by meditating and tapping. He has also enjoyed the having some quiet time to himself here. Clovis was visited by Pastor Simpson, of the [facility], who prayed with him. Clovis is an [employer] employee who works at [employer] and has been in touch with [employer] HR staff to figure out what to do about needing time off to recuperate.
[2017-11-19] MEDS: Enoxaparin 40 MG/0.4 ML SYR SC (15:16)
--- NOTE | 2017-11-19 15:45 | DI.RPTCT_ITS ---
SYMPTOMS/DIAGNOSIS: MILD DIVERTICULITIS BY CT 728, PERSISTENT FEVER, RIGORS, DEHYDRATION, COLITIS CT OF THE ABDOMEN AND PELVIS: Comparison is made with October,. Images were performed from the lung bases through the ischial tuberosities after IV and oral contrast. Prominent diverticulosis is again noted, greatest in the sigmoid region. There has been some decrease in the amount of inflammation in the sigmoid region seen on the previous exam. No bowel dilatation is seen. The appendix is normal. The lung bases show respiratory motion. The liver, spleen, pancreas and gallbladder are unremarkable. Multiple renal cysts are again noted. There are no stones or hydronephrosis. The prostate is enlarged. There is mild bladder wall thickening. IMPRESSION: Some improvement in sigmoid diverticulitis. No new abnormality or abscess is seen.
[2017-11-19] MEDS: Omnipaque 350 MG/ML 100 ML BTL IJ (15:57)
[2017-11-19] MEDS: Pravastatin 20 MG TAB PO (21:16)
--- NOTE | 2017-11-19 21:45 | PGE_ITS ---
DATE: November 19, 2017 ASSESSMENT AND PLAN: #1. Gram-negative sepsis. He continues on the Zosyn and does appear to be gradually improving. The concern is these recurrent rigors and fevers. It does not appear to be on the basis of abscess form ation. The plan is to continue IV Zosyn to complete a 7-day course and then, hopefully, transition t o p.o. antibiotics to complete a 14-day course. #2. Demand ischemia. He did have a bump in troponins. Plan is for outpatient workup. He has been stable since that time. #3. Diabetes. Blood sugars have been stable on sliding scale aspart. #4. Hypertension. Blood pressures slightly high but stable. #5. Disposition. He remains a FULL CODE. Continue to monitor in acute care status. REASON FOR ADMISSION: Gram negative sepsis/diverticulitis. SUBJECTIVE: He had a good day yesterday until about 8:00 p.m. when he developed again fever and eleonora rs. He says it was much milder than previous episodes and did not require fentanyl to help with the rigors. Today he is up walking around. His appetite is better. He overall is feeling improved. OBJECTIVE: Vital signs: Temperature 36.2. He has been afebrile. T-max was 39.2 at around 9:21 p.m. last night . Blood pressure 171/71. Respiratory rate 18. Pulse 60. Saturation 99% on room air. General: On exam he is upright walking around, stable gait, no respiratory difficulty. Abdomen: Abdominal exam was quite benign, soft, nontender. No guarding or rebound. No focal areas of tenderness were palpable. LABORATORY EVALUATION: White count 8.24 thousand, hemoglobin 11.8, hematocrit 35.4, platelets 143,00 0, 58 segs, 25 lymphs, no bands. Sodium 141, potassium 3.7, BUN 15, creatinine 1.11, blood sugar 125. Abdominopelvic CT scan with contrast today shows no evidence of abscess collection. There is apparen t resolving sigmoid diverticulitis with no new abnormality or abscess.
[2017-11-20 03:47] VITALS: BP 175/79; PULSE 66; RESP 18; TEMP 37.1; O2SAT 96
[2017-11-20] MEDS: Normal Saline Flush 10 ML SYR IVP ×3 (05:48→17:16)
[2017-11-20] MEDS: Acetaminophen 325 MG TAB 650 MG PO ×3 (05:48→17:16)
[2017-11-20 07:10] VITALS: BP 159/77; PULSE 65; RESP 20; TEMP 36.6; O2SAT 95
[2017-11-20 07:22] LABS: Abs Immature Grans 0.19 k/cumm (0.0-0.09); HCT 34.3 % (40.0-50.0); HGB 11.6 g/dL (13.5-17.5); Mean Corp. HGB Concentration 33.8 g/dL (32.0-36.0); Mean Corpuscular Hemoglobin 29.4 pg (27.0-33.0); Mean Corpuscular Volume 86.8 fL (80-95); Mean Platelet Volume 10.1 fL (8.0-11.0); Platelet Count 201 x1000/uL (130-400); RBC 3.95 m/cumm (4.50-6.00); RBC Distribution Width 15.5 % (11.8-14.1); White Blood Cell Count 8.28 k/cumm (4.4-10.8)
[2017-11-20 07:31] LABS: Anion Gap 9.2 mmol/L (3-11); BUN 13 mg/dL (7-18); CO2 24.8 mmol/L (21.0-32.0); CREATININE 0.98 mg/dL (0.70-1.30); Calcium 8.2 mg/dL (8.5-10.1); Chloride 105 mmol/L (98-107); Glucose 145 mg/dL (70-100); Potassium 3.8 mmol/L (3.5-5.1); Sodium 139 mmol/L (136-145)
[2017-11-20] MEDS: Vitamins B Comp w/C TAB 1 TAB PO (07:33)
[2017-11-20] MEDS: Metoprolol CR 25 MG TABCR PO (07:33)
[2017-11-20] MEDS: Lactobacillus Acidophilus CAP 1 CAP PO (07:33)
[2017-11-20] MEDS: Ascorbic Acid 500 MG TAB 125 MG PO (07:34)
[2017-11-20] MEDS: Aspirin 81 MG CHEW PO (07:34)
[2017-11-20 07:49] LABS: Absolute Neutrophil Count 3.97 k/cumm (1.2-6.7)
[2017-11-20 07:50] LABS: Absolute Eosinophil Count 0.66 k/cumm (0.0-0.7); Absolute Monocyte Count 1.16 k/cumm (0.11-0.7); Atypical Lymphocytes % 4
[2017-11-20 07:51] LABS: Diff Comment Manual Differential
[2017-11-20] MEDS: Insulin Aspart 300 UNITS/3 ML PEN SC ×3 (08:07→17:02)
--- NOTE | 2017-11-20 08:59 | PDOC.CMPRO ---
Care Management Progress Note S/O: Per MD, Clovis will likely switch to oral antibiotics and if he remains afebrile and stable, could discharge home as soon as tomorrow. He remains pleasant in interaction and is ambulating through the hallways independently and visiting with staff. A: Josue is a 72 year old male admitted to [facility] 11/14/17 with sepsis and positive blood cultures, dehydration, fever and colitis. P: Josue will return home when medically ready per provider. His family will transport him home at time of discharge. No additional services anticipated.
--- NOTE | 2017-11-20 09:02 | CMPROGNOTE_ITS ---
Care Management Progress Note S/O: Per MD, Clovis will likely switch to oral antibiotics and if he remains afebrile and stable, could discharge home as soon as tomorrow. He remains pleasant in interaction and is ambulating through the hallways independently and visiting with staff. A: Josue is a 72 year old male admitted to [facility] 11/14/17 with sepsis and positive blood cultures, dehydration, fever and colitis. P: Josue will return home when medically ready per provider. His family will transport him home at time of discharge. No additional services anticipated.
[2017-11-20 11:10] VITALS: BP 168/77; PULSE 76; RESP 64; TEMP 36.5; O2SAT 98
--- NOTE | 2017-11-20 15:28 | DM INPTCON_ITS ---
DESCRIPTION/ASSESSMENT: Mr. Westbrook is here with sepsis. His blood sugars mostly remain less than 140 however they have jumped into the 200s on occasion easily corrected with moderate insulin correction. Visited with Mr. Westbrook regarding diabetes self management. He denies having any unanswered questions regarding his diabetes self management. He does state that he learned cooked onions causes his blood sugars to rise. INTERVENTION: Brief review regarding causes of hyperglycemia and to let him know that there is no evidence that onions cause hyperglycemia. No further suggestions or intervention warranted at this time. PLAN: Will watch blood sugars
--- NOTE | 2017-11-20 15:39 | PGE_ITS ---
PROGRESS NOTE DATE: November 20, 2017 @ 1518 hours ASSESSMENT/PLAN: 1. E. coli septicemia. He's now gone over 24 hours without fever, chills or rigors. Follow-up CT o f the abdomen was reassuring. I think he's nearing the point where we can transition him to p.o. ant ibiotics. Based on the antibiotic profile and susceptibility, it's possible that he could go on some thing like Keflex or Augmentin. Will await tomorrow's lab and exam before making that transition. 2. Elevated Troponins. This was a transient phenomenon and appears to be related to demand ischemia, but I think it warrants an outpatient ischemic workup as a precaution. The plan is for outpatient M PI. 3. Diabetes. No change. 4. Disposition. He remains a FULL CODE. Possible transition to oral antibiotics tomorrow if he betsy ins stable. He may be ready for discharge in the next 24 to 48 hours. ++++++++++++++++++++ REASON FOR ADMISSION: E. coli bacteremia/diverticulitis. SUBJECTIVE: He continues to feel better. He had no further fever, chills or rigors in the last 24 h ours. He did have a bowel movement that was bright red and somewhat bloody, but not painful. He con tinues to walk. Appetite is better. OBJECTIVE: Vital Signs: temperature is 36.5, he's been afebrile; blood pressure 168/77, respiratory rate 20, pulse 76, satting 98% on room air. On exam he's smiling, comfortable, ambulating without difficulty. No new abdominal tenderness. LABORATORY DATA: His white count is 8.28 thousand, hemoglobin 11.6, hematocrit 34.3, platelets 201,0 00, 48 segs, 25 lymphs, no bands. Sodium is 139, potassium 3.8, BUN 13, creatinine 0.98, blood suga r 145.
[2017-11-20 16:12] VITALS: BP 154/81; PULSE 62; RESP 18; TEMP 36.8; O2SAT 98
[2017-11-20] MEDS: Enoxaparin 40 MG/0.4 ML SYR SC (16:49)
[2017-11-20] MEDS: Normal Saline 500 ML IV (17:02)
[2017-11-20] MEDS: Pravastatin 20 MG TAB PO (20:13)
[2017-11-20 20:24] VITALS: BP 150/70; PULSE 63; RESP 20; TEMP 36.3; O2SAT 96
[2017-11-21] VITALS (15 sets, daily range): BP systolic 133–173; BP diastolic 63–78; PULSE 57–69; RESP 18–20; TEMP 36.4–38.4; O2SAT 95–99
[2017-11-21] MEDS: Acetaminophen 325 MG TAB 650 MG PO ×5 (00:29→23:15)
[2017-11-21] MEDS: Normal Saline Flush 10 ML SYR IVP ×3 (05:53→21:36)
[2017-11-21 07:19] LABS: Abs Immature Grans 0.19 k/cumm (0.0-0.09); Absolute Basophil Count 0.09 k/cumm (0.0-0.2); Absolute Lymphocyte Count 2.21 k/cumm (1.2-3.4); Absolute Monocyte Count 1.13 k/cumm (0.11-0.7); Absolute Neutrophil Count 4.68 k/cumm (1.2-6.7); Eosinophils % 5.7; HCT 34.2 % (40.0-50.0); HGB 11.6 g/dL (13.5-17.5); Immature Grans % 2.2; Lymphocytes % 25.1; Mean Corp. HGB Concentration 33.9 g/dL (32.0-36.0); Mean Corpuscular Hemoglobin 29.4 pg (27.0-33.0); Mean Corpuscular Volume 86.8 fL (80-95); Mean Platelet Volume 10.2 fL (8.0-11.0); Monocytes % 12.8; Neutrophils % 53.2; Platelet Count 277 x1000/uL (130-400); RBC 3.94 m/cumm (4.50-6.00); RBC Distribution Width 15.8 % (11.8-14.1)
[2017-11-21 07:31] LABS: Anion Gap 12.1 mmol/L (3-11); BUN 13 mg/dL (7-18); C-Reactive Protein 5.47 mg/dL (0.0-0.3); CO2 22.9 mmol/L (21.0-32.0); CREATININE 0.98 mg/dL (0.70-1.30); Calcium 8.3 mg/dL (8.5-10.1); Chloride 104 mmol/L (98-107); Glucose 149 mg/dL (70-100); Potassium 3.9 mmol/L (3.5-5.1); Sodium 139 mmol/L (136-145)
[2017-11-21 08:02] LABS: RBC Morphology Normal
[2017-11-21] MEDS: Ascorbic Acid 500 MG TAB 125 MG PO (08:04)
[2017-11-21] MEDS: Lactobacillus Acidophilus CAP 1 CAP PO (08:05)
[2017-11-21] MEDS: Metoprolol CR 25 MG TABCR PO (08:05)
[2017-11-21] MEDS: Vitamins B Comp w/C TAB 1 TAB PO (08:05)
[2017-11-21] MEDS: Aspirin 81 MG CHEW PO (08:05)
[2017-11-21] MEDS: Preparation H 28 GM TUBE PR (08:06)
[2017-11-21 08:07] LABS: ESR 106 MM/HR (1-20)
[2017-11-21] MEDS: MetroNIDAZOLE 500 MG/100 ML BAG 100 MG IVPB ×3 (10:09→22:14)
[2017-11-21] MEDS: Insulin Aspart 300 UNITS/3 ML PEN SC (12:11)
[2017-11-21] MEDS: Enoxaparin 40 MG/0.4 ML SYR SC (15:28)
--- NOTE | 2017-11-21 16:54 | PDOC.CMPRO ---
Care Management Progress Note S/O: Ambulating in the hallway. States he is still feeling weak. New antibiotics were ordered and he was a little disappointed that he could not return home today. A: 72 year old male admitted with sepsis and positive blood cultures, dehydration, fever and colitis. P: Josue will return home when medically cleared for discharge. His family will transport him home at time of discharge. No additional services anticipated.
--- NOTE | 2017-11-21 18:02 | PDOC.PROG ---
Date of Service: 11/21/17 Time of Service: 18:02 Assessment/Plan - Assessment/Plan (1) Septicemia, Pseudomonas Assessment: He continues to show improvement in that he remains afebrile and has had resolution of his leukocytosis. He remains on Zosyn however I adjusted the dose to 4.5 g IV every 6 to reflect the fact that he grew Pseudomonas in his blood. I also added Flagyl to treat the Bacteroides and also because he reportedly has clostridium in his blood Plan: Told the patient he will remain on IV antibiotics through the weekend and that we will try to switch him to oral antibiotics on Thursday and discharge him home with close follow-up with his primary care provider. He indicated that he has a follow-up with his primary care provider on Thursday afternoon at 4 PM he will need a total of 14 days of antibiotics given the severity of his diverticulitis and bacteremia. (2) Sepsis due to Bacteroides species Plan: As above (3) E coli bacteremia Plan: As above (4) Sigmoid diverticulitis Plan: As above. Patient states his stools are becoming more solid and is tolerating his diet with no abdominal pain. (5) Non-ST elevated myocardial infarction Assessment: Patient clinically never had any chest pain. It is felt that his rise in his troponins which peaked at 0.74 and have since come down to normal at 0.05 probably represents demand ischemia from his sepsis. Nevertheless he will need an outpatient stress MPI upon discharge. Plan: On Thursday when he is discharged I will schedule him for a stress MPI within the following week (6) Type 2 diabetes mellitus Assessment: Blood sugars continue to improve with resolution of his sepsis. Plan: Continue insulin coverage with a sliding scale NovoLog. I will switch him back to metformin upon discharge (7) Essential hypertension Assessment: Blood pressures remain control and are less than optimal with systolic blood pressures in the 150s-170. Plan: I will add daily dose of lisinopril History of Present Illness - History of Present Illness Chief Complaint: Diverticulitis with sepsis History of Present Illness: Mr. Westbrook continues to improve from his sigmoid diverticulitis with sepsis. It is reassuring that his repeat blood cultures from November 18, 2017 showed no growth after 48 hours. Although his initial blood cultures from November 14, 2017 grew multiple organisms including E. coli and Bacteroides fragilis as well as Pseudomonas and now reportedly there is possible clostridium. The this was taken on 4 different blood cultures taken from November 14. However it is reassuring that he has been afebrile and has had no further rigors and his repeat CT scan of his abdomen and pelvis from November 19, 2017 showed improvement in his diverticulitis and no evidence for abscess. He continues to improve while on Zosyn 3.375 g IV every 6 hours. However because of the Pseudomonas I increase the dose to 4.5 g every 6 hours. Furthermore I have added Flagyl for anaerobic coverage and treatment of the Bacteroides and clostridium. I told him that he will continue on IV antibiotics through the weekend and we will transition him to oral antibiotics on Thursday. He will need a total of 14 days of antibiotic treatment because of the sepsis that he had. Although he sustained a non-ST elevation myocardial infarction is believed to be stress-induced type II RI and not due to a plaque rupture. Nevertheless he will need a follow-up outpatient stress MPI upon discharge. He has had no chest pain or pressure throughout this hospitalization. And he currently denies any abdominal pain or nausea or vomiting. He has had some diarrhea but that is improving and becoming more formed. Review of Systems - Review of Systems Constitutional: denies: Fever, Chills, Sweats Respiratory: denies: Shortness of Breath Cardiovascular: denies: Chest Pain Gastrointestinal: Diarrhea (Improving). denies: Nausea, Vomiting, Abdominal Pain - Medications/Allergies Allergies/Adverse Reactions: Allergies Allergy/AdvReac Type Severity Reaction Status Date / Time diclofenac [Diclofenac] AdvReac Intermediate DIZZY/LIGHT Unverified 11/14/17 12:54 HEADED amlodipine AdvReac Mild PEDAL EDEMA Unverified 11/14/17 12:54 venlafaxine AdvReac Unknown Unverified 11/14/17 12:54 Medications: Current Medications Acetaminophen (Tylenol) 650 mg PO Q6H [facility] Last Admin: 11/21/17 17:10 Dose: 650 mg Acidophilus/Pectin (Acidophilus) 1 cap PO DAILY [facility] Last Admin: 11/21/17 08:05 Dose: 1 cap Al Hydrox/Mg Hydrox/Simethicone (Mylanta Liquid) 30 ml PO Q2H PRN PRN Ascorbic Acid (Vitamin C) 125 mg PO DAILY [facility] Last Admin: 11/21/17 08:04 Dose: 125 mg Aspirin () 81 mg PO DAILY [facility] Last Admin: 11/21/17 08:05 Dose: 81 mg Cholecalciferol (Vitamin D) 1,000 units PO BID [facility] Last Admin: 11/21/17 08:05 Dose: 1,000 units Dextrose (Insta-Glucose) 0 gm PO DIRECTED PRN Dextrose/Water () 0 gm IVP DIRECTED PRN Dimethicone/Zinc Oxide (Calixto Protect Cream) 0 gm TP PRN PRN Docusate Sodium (Colace) 100 mg PO TID PRN PRN Enoxaparin Sodium (Lovenox) 40 mg SC Q24H [facility] Last Admin: 11/21/17 15:28 Dose: 40 mg Fentanyl Citrate (Sublimaze) 50 mcg IVP Q2H PRN PRN PRN Reason: Pain or Fever Last Admin: 11/17/17 14:07 Dose: 50 mcg Sodium Chloride (Saline 500ml Bag) 500 mls @ 0 mls/hr IV PRN PRN PRN Reason: As Directed Last Admin: 11/20/17 17:02 Dose: 0.01 mls/hr Piperacillin/Tazobactam/Dextrose (Zosyn) 4.5 gm in 100 mls @ 200 mls/hr IVPB Q6H [facility] Last Admin: 11/21/17 16:57 Dose: 200 mls/hr Metronidazole (Flagyl) 500 mg in 100 mls @ 100 mls/hr IVPB Q6H [facility] Last Admin: 11/21/17 15:34 Dose: 100 mls/hr IV Miscellaneous Supplies () 1 each IV DIRECTED [facility] Ibuprofen (Motrin) 800 mg PO Q8H PRN PRN Last Admin: 11/18/17 20:21 Dose: 800 mg Insulin Aspart (Novolog Flexpen) 0 units SC 0800,1200,1700 [facility] PRN Reason: Protocol Last Admin: 11/21/17 17:02 Dose: Not Given Magnesium Hydroxide (Milk Of Magnesia) 30 ml PO DAILY PRN PRN Metoprolol Succinate (Toprol Xl) 25 mg PO DAILY [facility] Last Admin: 11/21/17 08:05 Dose: 25 mg Non-Formulary Medication (Bee Pollen [Bee Pollen]) 550 mg PO BID [facility] Last Admin: 11/21/17 08:07 Dose: Not Given Non-Formulary Medication (Flaxseed/Omega3,6,9/Fatty Acid [Flax Seed Oil 1,300 Mg Softgel]) 1 each PO DAILY [facility] Last Admin: 11/21/17 08:07 Dose: Not Given Non-Formulary Medication (Quercetin) 1 cap PO DAILY [facility] Last Admin: 11/21/17 08:07 Dose: Not Given Non-Formulary Medication (Saw Pacific Fruit [Saw Pacific]) 450 mg PO DAILY [facility] Last Admin: 11/21/17 08:07 Dose: Not Given Omeprazole (Prilosec) 20 mg PO Q72H [facility] Last Admin: 11/19/17 08:03 Dose: 20 mg Pravastatin Sodium (Pravachol) 20 mg PO HS [facility] Last Admin: 11/20/17 20:13 Dose: 20 mg Sodium Chloride (Saline Flush 10 Ml Syringe) 0 ml IVP PRN PRN Last Admin: 11/21/17 15:35 Dose: 20 ml Vitamin B Complex/Vitamin C (Allbee W/C) 1 tab PO DAILY [facility] Last Admin: 11/21/17 08:05 Dose: 1 tab Zinc Oxide/Phenylephrine/Wh Petrol (Preparation H Ointment) 0 gm MO BID PRN PRN Last Admin: 11/21/17 08:06 Dose: 1 applic Objective - Exam Vitals and I&O: Vital Signs Temp 36.7 C 11/21/17 15:26 Pulse 67 11/21/17 15:26 Resp 18 11/21/17 15:26 BP 157/78 11/21/17 15:26 Pulse Ox 98 11/21/17 15:26 Intake & Output 11/20/17 11/21/17 11/21/17 23:59 11:59 23:59 Intake Total 500 1020 490 Output Total 850 900 300 Balance -350 120 190 Weight 98.8 kg Intake: IV 230 Oral 500 790 490 Output: Urine 850 900 300 Other: Urine Color Yellow Yellow Yellow Urine Appearance Clear Clear Clear Urine Odor None None Comment pt voided independent Stool Size Moderate Large Stool Characteristics Soft Soft Formed Brown Voiding Methods Toilet Toilet Toilet General: Alert, Oriented x3, Cooperative, No acute distress Lungs: Clear to auscultation, Normal air movement Cardiovascular: Regular rate, Normal S1, Normal S2. denies: Murmurs, Gallops Abdomen: Normal bowel sounds, Soft. denies: Tenderness, Masses Extremities: denies: Edema Psych/Mental Status: Mental status NL, Mood NL - Results Results: Laboratory Results WBC 8.80 k/cumm (4.4-10.8) 11/21/17 06:30 RBC 3.94 m/cumm (4.50-6.00) L 11/21/17 06:30 Hgb 11.6 g/dL (13.5-17.5) L 11/21/17 06:30 Hct 34.2 % (40.0-50.0) L 11/21/17 06:30 MCV 86.8 fL (80-95) 11/21/17 06:30 MCH 29.4 pg (27.0-33.0) 11/21/17 06:30 MCHC 33.9 g/dL (32.0-36.0) 11/21/17 06:30 RDW 15.8 % (11.8-14.1) H 11/21/17 06:30 Plt Count 277 x1000/uL (130-400) 11/21/17 06:30 MPV 10.2 fL (8.0-11.0) 11/21/17 06:30 Immature Gran % 2.2 11/21/17 06:30 Neutrophils % 53.2 11/21/17 06:30 Lymphocytes % 25.1 11/21/17 06:30 Monocytes % 12.8 11/21/17 06:30 Eosinophils % 5.7 11/21/17 06:30 Basophils % 1.0 11/21/17 06:30 Absolute Neutrophils 4.68 k/cumm (1.2-6.7) 11/21/17 06:30 Absolute Lymphocytes 2.21 k/cumm (1.2-3.4) 11/21/17 06:30 Absolute Monocytes 1.13 k/cumm (0.11-0.7) H 11/21/17 06:30 Absolute Eosinophils 0.50 k/cumm (0.0-0.7) 11/21/17 06:30 Absolute Basophils 0.09 k/cumm (0.0-0.2) 11/21/17 06:30 Metamyelocytes 1.0 % 11/20/17 07:03 Differential Comment 11/21/17 06:30 Atypical Lymphocytes 4 11/20/17 07:03 RBC Morphology Normal 11/21/17 06:30 Microcytosis 1+ 11/19/17 06:04 Target Cells 2+ 11/19/17 06:04 ESR 106 MM/HR (1-20) H 11/21/17 06:30 PT 10.6 sec (9.3-10.8) 11/14/17 12:50 INR 1.1 (1.0-3.5) 11/14/17 12:50 APTT 42.2 sec (21.0-31.4) H 11/18/17 06:12 D-Dimer 3345 ng/mlFEU (<500) H 11/14/17 12:50 Sodium 139 mmol/L (136-145) 11/21/17 06:30 Potassium 3.9 mmol/L (3.5-5.1) 11/21/17 06:30 Chloride 104 mmol/L (98-107) 11/21/17 06:30 Carbon Dioxide 22.9 mmol/L (21.0-32.0) 11/21/17 06:30 Anion Gap 12.1 mmol/L (3-11) H 11/21/17 06:30 BUN 13 mg/dL (7-18) 11/21/17 06:30 Creatinine 0.98 mg/dL (0.70-1.30) 11/21/17 06:30 Estimated GFR/1.73 m2 >= 60.00 (mL/min/1.73m2) 11/21/17 06:30 Glucose 149 mg/dL (70-100) H 11/21/17 06:30 Lactate 1.0 mmol/L (0.6-1.4) 11/18/17 09:55 Calcium 8.3 mg/dL (8.5-10.1) L 11/21/17 06:30 Magnesium 2.0 mg/dL (1.8-2.4) 11/17/17 06:25 Total Bilirubin 1.4 mg/dL (0.2-1.0) H 11/15/17 06:30 AST 44 U/L (15-37) H 11/15/17 06:30 ALT 45 U/L (12-78) 11/15/17 06:30 Alkaline Phosphatase 47 U/L (46-116) 11/15/17 06:30 Troponin I 0.05 ng/mL (0.00-0.06) 11/18/17 06:12 C-Reactive Protein 5.47 mg/dL (0.0-0.3) H 11/21/17 06:30 Total Protein 6.0 g/dL (6.4-8.2) L 11/15/17 06:30 Albumin 2.6 g/dL (3.4-5.0) L 11/15/17 06:30 Lipase 146 U/L (73-393) 11/14/17 12:50 TSH 2.86 uIU/mL (0.358-3.74) 11/14/17 12:50 Urine Color Yellow (Yellow) 11/14/17 13:10 Urine Clarity Clear 11/14/17 13:10 Urine pH 7.0 (5-8) 11/14/17 13:10 Ur Specific [place] 1.025 (1.005-1.025) 11/14/17 13:10 Urine Protein >=300 mg/dL (Negative) H 11/14/17 13:10 Urine Ketones Negative mg/dL (Negative) 11/14/17 13:10 Urine Blood Trace-intact (Negative) H 11/14/17 13:10 Urine Nitrite Negative (Negative) 11/14/17 13:10 Urine Bilirubin Negative (Negative) 11/14/17 13:10 Urine Urobilinogen 0.2 EU/dL (Up TO 0.2) 11/14/17 13:10 Ur Leukocyte Esterase Negative (Negative) 11/14/17 13:10 Urine RBC 0-2 (0-2) 11/14/17 13:10 Urine WBC 5-10 HPF (0-5) 11/14/17 13:10 Ur Epithelial Cells Negative HPF (Negative) 11/14/17 13:10 Urine Crystals Negative HPF (Negative) 11/14/17 13:10 Urine Bacteria Rare HPF (Negative) 11/14/17 13:10 Urine Casts 0-2 hyaline LPF (Negative) 11/14/17 13:10 Urine Mucus Trace (Negative) 11/14/17 13:10 Ur Culture Indicated? Yes 11/14/17 13:10 Urine Glucose 100 mg/dL (Negative) 11/14/17 13:10 Stool Campylobacter PCR See comments 11/15/17 17:40 Stool Salmonella PCR See comments 07/29/18 17:40 Stool Shigella PCR See comments 11/15/17 17:40 Shiga Toxin (PCR) See comments 11/15/17 17:40
[2017-11-21] MEDS: Pravastatin 20 MG TAB PO (19:02)
[2017-11-21] MEDS: Ibuprofen 800 MG TAB PO (20:31)
[2017-11-22] MEDS: Normal Saline Flush 10 ML SYR IVP ×2 (03:20→15:50)
[2017-11-22] MEDS: MetroNIDAZOLE 500 MG/100 ML BAG 100 MG IVPB ×4 (03:21→21:13)
[2017-11-22 03:27] VITALS: BP 135/67; PULSE 55; RESP 20; TEMP 36.6; O2SAT 95
[2017-11-22] MEDS: Acetaminophen 325 MG TAB 650 MG PO ×3 (04:56→17:29)
[2017-11-22 07:15] VITALS: BP 147/68; PULSE 60; RESP 19; TEMP 36.7; O2SAT 96
[2017-11-22] MEDS: Omeprazole 20 MG CAPCR PO (07:40)
[2017-11-22 07:50] VITALS: O2SAT 96
[2017-11-22] MEDS: Vitamins B Comp w/C TAB 1 TAB PO (08:16)
[2017-11-22] MEDS: Aspirin 81 MG CHEW PO (08:17)
[2017-11-22] MEDS: Lisinopril 5 MG TAB PO (08:17)
[2017-11-22] MEDS: Metoprolol CR 25 MG TABCR PO (08:17)
[2017-11-22] MEDS: Lactobacillus Acidophilus CAP 1 CAP PO (08:17)
[2017-11-22] MEDS: Ascorbic Acid 500 MG TAB 125 MG PO (08:17)
[2017-11-22 11:10] VITALS: BP 168/77; PULSE 69; RESP 20; TEMP 37; O2SAT 95
[2017-11-22] MEDS: Insulin Aspart 300 UNITS/3 ML PEN SC (12:01)
[2017-11-22 15:28] VITALS: BP 153/77; PULSE 62; RESP 18; TEMP 37.1; O2SAT 98
--- NOTE | 2017-11-22 16:13 | PDOC.PROG ---
Date of Service: 11/22/17 Time of Service: 16:13 Assessment/Plan - Assessment/Plan (1) Septicemia, Pseudomonas Plan: Continue Zosyn at the appropriate dose of 4.5 g IV every 6 hours (2) Sepsis due to Bacteroides species Plan: Continue Flagyl 500 mg IV every 6 hours along with Zosyn 4.5 g IV every 6 hours (3) E coli bacteremia Plan: Continue Zosyn 4.5 g IV every 6 hours (4) Sigmoid diverticulitis Assessment: Improving Plan: Patient is now had 2 CT scans of his abdomen pelvis with a subsequent CT scan not showing any abscess and actually showing improvement in his diverticulitis. I am not sure that a repeat CT scan again is going to give us a source for his fevers. However I would consider a leukocyte scan to see if it focalizes anywhere else. The other concern is the possibility of endocarditis although the organisms he is growing primarily Pseudomonas and E. coli and Bacteroides unlikely candidates for endocarditis. I was going to check an echocardiogram but he had one done just a few days ago that did not show any vegetations. (5) Non-ST elevated myocardial infarction Plan: His non-STEMI was most likely high demand ischemic event from his sepsis. Nevertheless we will check a stress MPI prior to discharge (6) Type 2 diabetes mellitus Assessment: Blood sugars under variable control but overall generally well controlled. Today the running between 131 and 167. At bedtime he was 188. He previously was on metformin as an outpatient. He is currently on insulin control with NovoLog FlexPen on the insulin sensitive scale. (7) Essential hypertension Assessment: Variable blood pressure control with blood pressures ranging from 133-153 systolic and diastolic blood pressures in the 60s and 70s. Plan: Today was his first day of Prinivil 5 mg daily. He is also on Toprol-XL 25 mg daily for anti-ischemic effect as well as blood pressure. Heart rates have been in the high 50s to high 60s. Therefore I will opt to titrate his Prinivil dose tomorrow History of Present Illness - History of Present Illness Chief Complaint: Sepsis secondary to sigmoid diverticulitis, non-STEMI History of Present Illness: Overall the patient feels improved. He has no nausea vomiting no abdominal pain. No shortness of breath or chest pain. Nevertheless he had a fever last night up to 38.4. No blood cultures were obtained last night. No labs were ordered for today. He has been eating and drinking fine. He remains on parenteral antibiotics including Zosyn at 4.5 g IV every 6 hours and Flagyl 500 mg IV every 6 hours. I told Josue that he will need to remain hospitalized until we get to the source of his fevers. I am going to repeat his blood cultures today and follow-up with labs tomorrow including repeat CBC and CMP, sed rate, CRP. He may need an indium scan or other leukocyte scan. I will check a repeat chest x-ray as well as urinalysis. He says that occasionally when he voids to feel slight staying to his urine. Otherwise his urine is clear. He has no shortness of breath and no sputum production. His room air saturation is 98% Review of Systems - Review of Systems Constitutional: Fever. denies: Chills (He denies any rigors or night sweats), Sweats Respiratory: denies: Cough, SOB with Excertion, Sputum Cardiovascular: denies: Chest Pain Gastrointestinal: denies: Nausea, Vomiting, Abdominal Pain, Diarrhea (Patient states he has had a couple of formed bowel movements in the last 24 hours) Genitourinary: Dysuria. denies: Hematuria - Medications/Allergies Allergies/Adverse Reactions: Allergies Allergy/AdvReac Type Severity Reaction Status Date / Time diclofenac [Diclofenac] AdvReac Intermediate DIZZY/LIGHT Unverified 11/14/17 12:54 HEADED amlodipine AdvReac Mild PEDAL EDEMA Unverified 11/14/17 12:54 venlafaxine AdvReac Unknown Unverified 11/14/17 12:54 Medications: Current Medications Acetaminophen (Tylenol) 650 mg PO Q6H [facility] Last Admin: 11/22/17 11:38 Dose: 650 mg Acidophilus/Pectin (Acidophilus) 1 cap PO DAILY [facility] Last Admin: 11/22/17 08:17 Dose: 1 cap Al Hydrox/Mg Hydrox/Simethicone (Mylanta Liquid) 30 ml PO Q2H PRN PRN Ascorbic Acid (Vitamin C) 125 mg PO DAILY [facility] Last Admin: 11/22/17 08:17 Dose: 125 mg Aspirin () 81 mg PO DAILY [facility] Last Admin: 11/22/17 08:17 Dose: 81 mg Cholecalciferol (Vitamin D) 1,000 units PO BID [facility] Last Admin: 11/22/17 08:17 Dose: 1,000 units Dextrose (Insta-Glucose) 0 gm PO DIRECTED PRN Dextrose/Water () 0 gm IVP DIRECTED PRN Dimethicone/Zinc Oxide (Calixto Protect Cream) 0 gm TP PRN PRN Docusate Sodium (Colace) 100 mg PO TID PRN PRN Enoxaparin Sodium (Lovenox) 40 mg SC Q24H [facility] Last Admin: 11/21/17 15:28 Dose: 40 mg Fentanyl Citrate (Sublimaze) 50 mcg IVP Q2H PRN PRN PRN Reason: Pain or Fever Last Admin: 11/17/17 14:07 Dose: 50 mcg Sodium Chloride (Saline 500ml Bag) 500 mls @ 0 mls/hr IV PRN PRN PRN Reason: As Directed Last Admin: 11/20/17 17:02 Dose: 0.01 mls/hr Piperacillin/Tazobactam/Dextrose (Zosyn) 4.5 gm in 100 mls @ 200 mls/hr IVPB Q6H [facility] Last Admin: 11/22/17 15:50 Dose: 200 mls/hr Metronidazole (Flagyl) 500 mg in 100 mls @ 100 mls/hr IVPB Q6H [facility] Last Admin: 11/22/17 10:22 Dose: 100 mls/hr IV Miscellaneous Supplies () 1 each IV DIRECTED [facility] Ibuprofen (Motrin) 800 mg PO Q8H PRN PRN Last Admin: 11/21/17 20:31 Dose: 800 mg Insulin Aspart (Novolog Flexpen) 0 units SC 0800,1200,1700 [facility] PRN Reason: Protocol Last Admin: 11/22/17 12:01 Dose: 1 unit Lisinopril (Prinivil) 5 mg PO DAILY [facility] Last Admin: 11/22/17 08:17 Dose: 5 mg Magnesium Hydroxide (Milk Of Magnesia) 30 ml PO DAILY PRN PRN Metoprolol Succinate (Toprol Xl) 25 mg PO DAILY [facility] Last Admin: 11/22/17 08:17 Dose: 25 mg Non-Formulary Medication (Bee Pollen [Bee Pollen]) 550 mg PO BID [facility] Last Admin: 11/22/17 07:41 Dose: Not Given Non-Formulary Medication (Flaxseed/Omega3,6,9/Fatty Acid [Flax Seed Oil 1,300 Mg Softgel]) 1 each PO DAILY [facility] Last Admin: 11/22/17 07:41 Dose: Not Given Non-Formulary Medication (Quercetin) 1 cap PO DAILY [facility] Last Admin: 11/22/17 08:18 Dose: Not Given Non-Formulary Medication (Saw [place] Fruit [Saw [place]]) 450 mg PO DAILY [facility] Last Admin: 11/22/17 08:18 Dose: Not Given Omeprazole (Prilosec) 20 mg PO Q72H [facility] Last Admin: 11/22/17 07:40 Dose: 20 mg Pravastatin Sodium (Pravachol) 20 mg PO HS [facility] Last Admin: 11/21/17 19:02 Dose: 20 mg Sodium Chloride (Saline Flush 10 Ml Syringe) 0 ml IVP PRN PRN Last Admin: 11/22/17 15:50 Dose: 10 ml Vitamin B Complex/Vitamin C (Allbee W/C) 1 tab PO DAILY [facility] Last Admin: 11/22/17 08:16 Dose: 1 tab Zinc Oxide/Phenylephrine/Wh Petrol (Preparation H Ointment) 0 gm OK BID PRN PRN Last Admin: 11/21/17 08:06 Dose: 1 applic Objective - Exam Vitals and I&O: Vital Signs Temp 37.1 C 11/22/17 15:28 Pulse 62 11/22/17 15:28 Resp 18 11/22/17 15:28 BP 153/77 11/22/17 15:28 Pulse Ox 98 11/22/17 15:28 Intake & Output 11/21/17 11/22/17 11/22/17 23:59 11:59 23:59 Intake Total 730 1460 Output Total 2350 1900 400 Balance -1620 -440 -400 Weight 98.8 kg Intake: IV 300 Oral 730 1160 Output: Urine 2350 1900 400 Other: Urine Color Yellow Yellow Yellow Urine Appearance Clear Clear Clear Urine Odor Normal Comment Pt reports he emptied 550 from specimen container. Stool Size Moderate Moderate Moderate Stool Characteristics Formed Soft Soft Brown Formed Formed Brown Brown Voiding Methods Toilet Toilet Toilet General: Alert, Oriented x3, Cooperative, No acute distress Neck: Supple, +2 carotid pulse wo bruit. denies: JVD Lungs: Clear to auscultation, Normal air movement Cardiovascular: Regular rate, Normal S1, Normal S2. denies: Murmurs Abdomen: Normal bowel sounds, Soft. denies: Tenderness, Hepatospenomegaly, Masses Extremities: Normal pulses. denies: Cyanosis, Edema, Tenderness/swelling Skin: denies: Rashes - Results Results: Laboratory Results WBC 8.80 k/cumm (4.4-10.8) 11/21/17 06:30 RBC 3.94 m/cumm (4.50-6.00) L 11/21/17 06:30 Hgb 11.6 g/dL (13.5-17.5) L 11/21/17 06:30 Hct 34.2 % (40.0-50.0) L 11/21/17 06:30 MCV 86.8 fL (80-95) 11/21/17 06:30 MCH 29.4 pg (27.0-33.0) 11/21/17 06:30 MCHC 33.9 g/dL (32.0-36.0) 11/21/17 06:30 RDW 15.8 % (11.8-14.1) H 11/21/17 06:30 Plt Count 277 x1000/uL (130-400) 11/21/17 06:30 MPV 10.2 fL (8.0-11.0) 11/21/17 06:30 Immature Gran % 2.2 11/21/17 06:30 Neutrophils % 53.2 11/21/17 06:30 Lymphocytes % 25.1 11/21/17 06:30 Monocytes % 12.8 11/21/17 06:30 Eosinophils % 5.7 11/21/17 06:30 Basophils % 1.0 11/21/17 06:30 Absolute Neutrophils 4.68 k/cumm (1.2-6.7) 11/21/17 06:30 Absolute Lymphocytes 2.21 k/cumm (1.2-3.4) 11/21/17 06:30 Absolute Monocytes 1.13 k/cumm (0.11-0.7) H 11/21/17 06:30 Absolute Eosinophils 0.50 k/cumm (0.0-0.7) 11/21/17 06:30 Absolute Basophils 0.09 k/cumm (0.0-0.2) 11/21/17 06:30 Metamyelocytes 1.0 % 11/20/17 07:03 Differential Comment 11/21/17 06:30 Atypical Lymphocytes 4 11/20/17 07:03 RBC Morphology Normal 11/21/17 06:30 Microcytosis 1+ 11/19/17 06:04 Target Cells 2+ 11/19/17 06:04 ESR 106 MM/HR (1-20) H 11/21/17 06:30 PT 10.6 sec (9.3-10.8) 11/14/17 12:50 INR 1.1 (1.0-3.5) 11/14/17 12:50 APTT 42.2 sec (21.0-31.4) H 11/18/17 06:12 D-Dimer 3345 ng/mlFEU (<500) H 11/14/17 12:50 Sodium 139 mmol/L (136-145) 11/21/17 06:30 Potassium 3.9 mmol/L (3.5-5.1) 11/21/17 06:30 Chloride 104 mmol/L (98-107) 11/21/17 06:30 Carbon Dioxide 22.9 mmol/L (21.0-32.0) 11/21/17 06:30 Anion Gap 12.1 mmol/L (3-11) H 11/21/17 06:30 BUN 13 mg/dL (7-18) 11/21/17 06:30 Creatinine 0.98 mg/dL (0.70-1.30) 11/21/17 06:30 Estimated GFR/1.73 m2 >= 60.00 (mL/min/1.73m2) 11/21/17 06:30 Glucose 149 mg/dL (70-100) H 11/21/17 06:30 Lactate 1.0 mmol/L (0.6-1.4) 11/18/17 09:55 Calcium 8.3 mg/dL (8.5-10.1) L 11/21/17 06:30 Magnesium 2.0 mg/dL (1.8-2.4) 11/17/17 06:25 Total Bilirubin 1.4 mg/dL (0.2-1.0) H 11/15/17 06:30 AST 44 U/L (15-37) H 11/15/17 06:30 ALT 45 U/L (12-78) 11/15/17 06:30 Alkaline Phosphatase 47 U/L (46-116) 11/15/17 06:30 Troponin I 0.05 ng/mL (0.00-0.06) 11/18/17 06:12 C-Reactive Protein 5.47 mg/dL (0.0-0.3) H 11/21/17 06:30 Total Protein 6.0 g/dL (6.4-8.2) L 11/15/17 06:30 Albumin 2.6 g/dL (3.4-5.0) L 11/15/17 06:30 Lipase 146 U/L (73-393) 11/14/17 12:50 TSH 2.86 uIU/mL (0.358-3.74) 11/14/17 12:50 Urine Color Yellow (Yellow) 11/14/17 13:10 Urine Clarity Clear 11/14/17 13:10 Urine pH 7.0 (5-8) 11/14/17 13:10 Ur Specific Davis 1.025 (1.005-1.025) 11/14/17 13:10 Urine Protein >=300 mg/dL (Negative) H 11/14/17 13:10 Urine Ketones Negative mg/dL (Negative) 11/14/17 13:10 Urine Blood Trace-intact (Negative) H 11/14/17 13:10 Urine Nitrite Negative (Negative) 11/14/17 13:10 Urine Bilirubin Negative (Negative) 11/14/17 13:10 Urine Urobilinogen 0.2 EU/dL (Up TO 0.2) 11/14/17 13:10 Ur Leukocyte Esterase Negative (Negative) 11/14/17 13:10 Urine RBC 0-2 (0-2) 11/14/17 13:10 Urine WBC 5-10 HPF (0-5) 11/14/17 13:10 Ur Epithelial Cells Negative HPF (Negative) 11/14/17 13:10 Urine Crystals Negative HPF (Negative) 11/14/17 13:10 Urine Bacteria Rare HPF (Negative) 11/14/17 13:10 Urine Casts 0-2 hyaline LPF (Negative) 11/14/17 13:10 Urine Mucus Trace (Negative) 11/14/17 13:10 Ur Culture Indicated? Yes 11/14/17 13:10 Urine Glucose 100 mg/dL (Negative) 11/14/17 13:10 Stool Campylobacter PCR See comments 11/15/17 17:40 Stool Salmonella PCR See comments 11/15/17 17:40 Stool Shigella PCR See comments 11/15/17 17:40 Shiga Toxin (PCR) See comments 11/15/17 17:40
--- NOTE | 2017-11-22 16:31 | DI.REPORT_ITS ---
SYMPTOM/DIAGNOSIS: FEVER. DIVERTICULITIS WITH SEPSIS CHEST: PA and lateral. Comparison 11/15/17 Heart size and pulmonary vasculature are within normal limits. No new infiltrates are seen. Left basilar infiltrate appears to have resolved. No effusions or pneumothoraces are identified. Mild degenerative changes are seen in the spine. IMPRESSION: No acute pulmonary process.
[2017-11-22] MEDS: Enoxaparin 40 MG/0.4 ML SYR SC (16:39)
--- NOTE | 2017-11-22 17:30 | DI.VRAD_ITS ---
EXAM: XR Chest, 2 Views CLINICAL HISTORY: 72 years old, male; Signs and symptoms; Fever; Patient HX: Diverticulitis with sepsis, dehydration, fever, colitis TECHNIQUE: Frontal and lateral views of the chest. COMPARISON: [place] - PORTABLE CHEST ONE VIEW 2017-11-15 09:24 FINDINGS: Lungs: The previously suspected pneumonic infiltrate and/or atelectasis in the lateral left lung base has completely resolved. The lung doty appear symmetrically aerated. There are no pneumonic consolidations. No pulmonary nodules are evident. Pleural space: No pleural effusions are detected. No pneumothorax. Heart: Cardiac size is normal. Mediastinum: Unremarkable. Bones/joints: The osseous structures appear diffusely osteopenic and unchanged. Very minimal anterior marginal osteophytic spurring is present throughout the thoracic vertebrae. Vasculature: Minimal atheromatous plaquing is seen within the aortic arch. IMPRESSION: 1. The previously noted pneumonic infiltrate and/or atelectatic process in the lateral left lung base has completely resolved. 2. No acute pulmonary disease or acute thoracic findings are detected. Dictated and Authenticated by: Jason Do MD. Ordering:[facility] RHONDA HUNT MD
[2017-11-22 18:08] LABS: Bilirubin Negative (Negative); Blood Negative (Negative); Clarity Clear; Glucose Negative (Negative); Ketones Negative (Negative); Leukocyte Esterase Negative (Negative); Nitrite Negative (Negative); Urobilinogen 0.2 EU/dL (Up TO 0.2); pH 6.5 (5-8)
[2017-11-22 19:38] VITALS: BP 154/75; PULSE 69; RESP 16; TEMP 36.6; O2SAT 96
--- NOTE | 2017-11-22 20:34 | PDOC.CMPRO ---
Care Management Progress Note S/O: Disappointed that he ran a slight fever last night and will need to remain in the hospital until the source of this has been identified. A: 72 y.o. male admitted for Dehydration, fever, colitis P: Return home with his Liyah when medically cleared for discharge. No home services indicated at this time.
[2017-11-22] MEDS: Pravastatin 20 MG TAB PO (21:12)
[2017-11-23] VITALS (7 sets, daily range): BP systolic 116–171; BP diastolic 63–83; PULSE 63–74; RESP 18–19; TEMP 36.4–37.8; O2SAT 96–99
[2017-11-23] MEDS: Acetaminophen 325 MG TAB 650 MG PO ×5 (00:31→23:49)
[2017-11-23] MEDS: MetroNIDAZOLE 500 MG/100 ML BAG 100 MG IVPB ×4 (04:04→22:23)
[2017-11-23 07:03] LABS: Abs Immature Grans 0.08 k/cumm (0.0-0.09); Absolute Basophil Count 0.06 k/cumm (0.0-0.2); Absolute Lymphocyte Count 1.42 k/cumm (1.2-3.4); Basophils % 0.5; Eosinophils % 2.6; HCT 35.8 % (40.0-50.0); HGB 11.9 g/dL (13.5-17.5); Immature Grans % 0.7; Lymphocytes % 12.1; Mean Corp. HGB Concentration 33.2 g/dL (32.0-36.0); Mean Corpuscular Hemoglobin 29.2 pg (27.0-33.0); Mean Platelet Volume 9.8 fL (8.0-11.0); Neutrophils % 78.1; Platelet Count 330 x1000/uL (130-400); RBC 4.07 m/cumm (4.50-6.00); RBC Distribution Width 16.4 % (11.8-14.1); White Blood Cell Count 11.73 k/cumm (4.4-10.8)
[2017-11-23 07:06] LABS: Absolute Neutrophil Count 9.16 k/cumm (1.2-6.7)
[2017-11-23 07:09] LABS: ALT 168 U/L (12-78); AST 70 U/L (15-37); Albumin 2.5 g/dL (3.4-5.0); Alkaline Phosphatase 286 U/L (46-116); Anion Gap 9.7 mmol/L (3-11); BUN 11 mg/dL (7-18); Bilirubin, Total 1.1 mg/dL (0.2-1.0); C-Reactive Protein 4.89 mg/dL (0.0-0.3); CO2 23.3 mmol/L (21.0-32.0); CREATININE 1.08 mg/dL (0.70-1.30); Calcium 8.4 mg/dL (8.5-10.1); Chloride 102 mmol/L (98-107); Glucose 160 mg/dL (70-100); Potassium 4.1 mmol/L (3.5-5.1); Sodium 135 mmol/L (136-145); Total Protein 7.2 g/dL (6.4-8.2)
[2017-11-23 08:05] LABS: ESR 101 MM/HR (1-20)
[2017-11-23] MEDS: Insulin Aspart 300 UNITS/3 ML PEN SC ×4 (08:30→17:19)
[2017-11-23] MEDS: Ascorbic Acid 500 MG TAB 125 MG PO (08:30)
[2017-11-23] MEDS: Metoprolol CR 25 MG TABCR PO (08:30)
[2017-11-23] MEDS: Vitamins B Comp w/C TAB 1 TAB PO (08:31)
[2017-11-23] MEDS: Lactobacillus Acidophilus CAP 1 CAP PO (08:31)
[2017-11-23] MEDS: Aspirin 81 MG CHEW PO (08:31)
[2017-11-23] MEDS: Lisinopril 5 MG TAB PO (08:31)
[2017-11-23] MEDS: Normal Saline 500 ML 100 ML IV (09:27)
[2017-11-23] MEDS: Normal Saline Flush 10 ML SYR IVP ×3 (09:27→21:44)
--- NOTE | 2017-11-23 12:38 | PDOC.CMPRO ---
Care Management Progress Note S/O-Met with Clovis today. He is anxious for d/c but knows he needs to await source of his fever. No change to overall plan. A-72 yo man admitted with dehydration, fever, colitis. P-d/c home as per MD, no services anticipated. Liyah to transport.
--- NOTE | 2017-11-23 13:03 | CHAPLAIN ---
Clovis is hoping to hear today that he'll be able to go home soon. He said he is tired from not sleeping well because the IV fluids cause him to have to use the bathroom often. Clovis has good support in the community. His Liyah's grandson is staying with Liyah right now and able to assist her. Liyah has COPD and Clovis is her caregiver.
[2017-11-23] MEDS: Enoxaparin 40 MG/0.4 ML SYR SC (15:21)
--- NOTE | 2017-11-23 15:37 | PDOC.PROG ---
Date of Service: 11/23/17 Time of Service: 15:37 Assessment/Plan - Assessment/Plan (1) Sigmoid diverticulitis Assessment: I spoke with Dr. Mckay Orr regarding this patient's workup and treatment of his sigmoid diverticulitis. He felt the patient was treated with the appropriate antibiotics and he did not see any abscess on the patient's CAT scans however he recommended getting an ultrasound of the patient's abdomen looking at his liver for potential hepatic abscess. Because the patient had been bacteremic he may have seeded his hepatic portal that there may be a nidus of an abscess that may be causing his fevers. Plan: Clinically the patient seems to be improving and I plan to switch him to oral antibiotics tomorrow however I think I will wait until we get the ultrasound of his liver and obtain a nuclear WBC scan looking for an abscess (2) E coli bacteremia Plan: Continue Zosyn and Flagyl parenterally until we get his repeat echocardiogram on Thursday and we can get a liver ultrasound and WBC nuclear scan (3) Septicemia, Pseudomonas Plan: As above (4) Sepsis due to Bacteroides species Plan: Continue IV Flagyl and Zosyn pending above studies (5) Non-ST elevated myocardial infarction Assessment: No symptoms of chest pain or pressure and no dyspnea Plan: Arrange an outpatient stress MPI upon discharge. Continue low-dose beta-sascha and aspirin along with pravastatin (6) Type 2 diabetes mellitus Assessment: Blood sugars continue to run high. He is currently on insulin for NovoLog per insulin sensitive scale. Plan: I will add low-dose Lantus at night and adjust his insulin scale and start him on carbohydrate coverage (7) Essential hypertension Assessment: Improving blood pressure control since addition of lisinopril Plan: Continue metoprolol lisinopril History of Present Illness - History of Present Illness Chief Complaint: Bacteremia and sepsis secondary to diverticulitis, non-STEMI History of Present Illness: Patient is finally gone over 24 hours without any fevers. He is currently being treated with Zosyn and metronidazole parenterally for multiple gram-negative and Clostridium bacteremia from sigmoid diverticulitis. Last fever was November 21, 2017 at 2139. He has had no chills and no rigors. His white cell count went up slightly today to 11,730 but over all he is feeling better. I discussed this case with Dr. Daquan Wayne for 2 reasons. One the patient sustained a non-ST elevation ID associated with sepsis. And then the other reason for discussing his case is concern for possible endocarditis. After reviewing the case Dr. Wayne feels that since the patient does not have any prosthetic valves it is unlikely he would develop endocarditis particularly since he is responding to the parenteral antibiotics. He recommended a repeat echocardiogram in the mid part of this week. As for his non-ST elevation ID he feels he can have stress MPI as an outpatient. I am going to change the patient to oral antibiotics and monitor his response with inflammatory markers and CBC as well as watch his temperature curve. If he has no fever on oral antibiotics the plan will be for him to be discharged in the middle of this week presuming that there is no new changes on his echocardiogram. I have also request a surgical consult to look over his case and review his CAT scan findings and make any follow-up recommendations regarding his diverticulitis. This afternoon I had the opportunity to speak with Dr. Mckay Vickers, general surgeon, he reviewed the patient's workup and treatment of his sigmoid diverticulitis with bacteremia. He did not see any abscess on the patient's CAT scans nevertheless with the patient's elevated LFTs he recommended getting an ultrasound of the patient's liver to make sure he did not seed bacteria into the liver bed causing a hepatic abscess. Therefore patient will continue on parenteral antibiotics pending his ultrasound of his abdomen. I also spoke with Dr. Daquan Wayne, spray drier who recommended a repeat echocardiogram (see above discussion). I have also decided to pursue a nuclear WBC scan for abscess localization. Review of Systems - Review of Systems Constitutional: denies: Fever, Chills, Sweats Respiratory: denies: Shortness of Breath Cardiovascular: Chest Pain (No chest pressure or heaviness but he did note a fleeting stinging sensation in the right axillary area which is been transient.). denies: Palpitations Gastrointestinal: denies: Nausea, Vomiting, Abdominal Pain, Diarrhea - Medications/Allergies Allergies/Adverse Reactions: Allergies Allergy/AdvReac Type Severity Reaction Status Date / Time diclofenac [Diclofenac] AdvReac Intermediate DIZZY/LIGHT Unverified 11/14/17 12:54 HEADED amlodipine AdvReac Mild PEDAL EDEMA Unverified 11/14/17 12:54 venlafaxine AdvReac Unknown Unverified 11/14/17 12:54 Medications: Current Medications Acetaminophen (Tylenol) 650 mg PO Q6H [facility] Last Admin: 11/23/17 12:13 Dose: 650 mg Acidophilus/Pectin (Acidophilus) 1 cap PO DAILY [facility] Last Admin: 11/23/17 08:31 Dose: 1 cap Al Hydrox/Mg Hydrox/Simethicone (Mylanta Liquid) 30 ml PO Q2H PRN PRN Ascorbic Acid (Vitamin C) 125 mg PO DAILY [facility] Last Admin: 11/23/17 08:30 Dose: 125 mg Aspirin () 81 mg PO DAILY [facility] Last Admin: 11/23/17 08:31 Dose: 81 mg Cholecalciferol (Vitamin D) 1,000 units PO BID [facility] Last Admin: 11/23/17 08:31 Dose: 1,000 units Dextrose (Insta-Glucose) 0 gm PO DIRECTED PRN Dextrose/Water () 0 gm IVP DIRECTED PRN Dimethicone/Zinc Oxide (Calixto Protect Cream) 0 gm TP PRN PRN Docusate Sodium (Colace) 100 mg PO TID PRN PRN Enoxaparin Sodium (Lovenox) 40 mg SC Q24H [facility] Last Admin: 11/23/17 15:21 Dose: 40 mg Fentanyl Citrate (Sublimaze) 50 mcg IVP Q2H PRN PRN PRN Reason: Pain or Fever Last Admin: 11/17/17 14:07 Dose: 50 mcg Sodium Chloride (Saline 500ml Bag) 500 mls @ 0 mls/hr IV PRN PRN PRN Reason: As Directed Last Admin: 11/23/17 09:27 Dose: 100 mls/hr Piperacillin/Tazobactam/Dextrose (Zosyn) 4.5 gm in 100 mls @ 200 mls/hr IVPB Q6H [facility] Last Admin: 11/23/17 09:27 Dose: 200 mls/hr Metronidazole (Flagyl) 500 mg in 100 mls @ 100 mls/hr IVPB Q6H [facility] Last Admin: 11/23/17 15:20 Dose: 100 mls/hr IV Miscellaneous Supplies () 1 each IV DIRECTED [facility] Insulin Aspart (Novolog Flexpen) 0 units SC 0800,1200,1700 [facility] PRN Reason: Protocol Last Admin: 11/23/17 12:14 Dose: 1 unit Lisinopril (Prinivil) 5 mg PO DAILY [facility] Last Admin: 11/23/17 08:31 Dose: 5 mg Magnesium Hydroxide (Milk Of Magnesia) 30 ml PO DAILY PRN PRN Metoprolol Succinate (Toprol Xl) 25 mg PO DAILY [facility] Last Admin: 11/23/17 08:30 Dose: 25 mg Non-Formulary Medication (Bee Pollen [Bee Pollen]) 550 mg PO BID [facility] Last Admin: 11/23/17 08:32 Dose: Not Given Non-Formulary Medication (Flaxseed/Omega3,6,9/Fatty Acid [Flax Seed Oil 1,300 Mg Softgel]) 1 each PO DAILY [facility] Last Admin: 11/23/17 08:32 Dose: Not Given Non-Formulary Medication (Quercetin) 1 cap PO DAILY [facility] Last Admin: 11/23/17 08:32 Dose: Not Given Non-Formulary Medication (Saw [place] Fruit [Saw Palmyra]) 450 mg PO DAILY [facility] Last Admin: 11/23/17 08:32 Dose: Not Given Omeprazole (Prilosec) 20 mg PO Q72H [facility] Last Admin: 11/22/17 07:40 Dose: 20 mg Pravastatin Sodium (Pravachol) 20 mg PO HS [facility] Last Admin: 11/22/17 21:12 Dose: 20 mg Sodium Chloride (Saline Flush 10 Ml Syringe) 0 ml IVP PRN PRN Last Admin: 11/23/17 15:21 Dose: 10 ml Vitamin B Complex/Vitamin C ([place] W/C) 1 tab PO DAILY [facility] Last Admin: 11/23/17 08:31 Dose: 1 tab Zinc Oxide/Phenylephrine/Wh Petrol (Preparation H Ointment) 0 gm MI BID PRN PRN Last Admin: 11/21/17 08:06 Dose: 1 applic Objective - Exam Vitals and I&O: Vital Signs Temp 36.6 C 11/23/17 11:45 Pulse 63 11/23/17 11:45 Resp 18 11/23/17 11:45 BP 126/68 11/23/17 11:45 Pulse Ox 97 11/23/17 11:45 Intake & Output 11/22/17 11/23/17 11/23/17 23:59 11:59 23:59 Intake Total 490 240 360 Output Total 1700 1800 850 Balance -1210 -1560 -490 Weight 93.1 kg Intake: Oral 490 240 360 Output: Urine 1700 1800 850 Other: Urine Color Yellow Yellow Yellow Urine Appearance Clear Clear Clear Urine Odor None Stool Size Moderate Large Moderate Stool Characteristics Soft Soft Soft Formed Formed Brown Brown Brown Voiding Methods Toilet Toilet Toilet General: Alert, Oriented x3, Cooperative, No acute distress Lungs: Clear to auscultation, Normal air movement Cardiovascular: Regular rate, Normal S1, Normal S2. denies: Murmurs, Gallops Abdomen: Normal bowel sounds, Soft. denies: Tenderness, Hepatospenomegaly, Masses Extremities: Normal pulses. denies: Edema Psych/Mental Status: Mental status NL, Mood NL - Results Results: Laboratory Results WBC 11.73 k/cumm (4.4-10.8) H 11/23/17 06:08 RBC 4.07 m/cumm (4.50-6.00) L 11/23/17 06:08 Hgb 11.9 g/dL (13.5-17.5) L 11/23/17 06:08 Hct 35.8 % (40.0-50.0) L 11/23/17 06:08 MCV 88.0 fL (80-95) 11/23/17 06:08 MCH 29.2 pg (27.0-33.0) 11/23/17 06:08 MCHC 33.2 g/dL (32.0-36.0) 11/23/17 06:08 RDW 16.4 % (11.8-14.1) H 11/23/17 06:08 Plt Count 330 x1000/uL (130-400) 11/23/17 06:08 MPV 9.8 fL (8.0-11.0) 11/23/17 06:08 Immature Gran % 0.7 11/23/17 06:08 Neutrophils % 78.1 11/23/17 06:08 Lymphocytes % 12.1 11/23/17 06:08 Monocytes % 6.0 11/23/17 06:08 Eosinophils % 2.6 11/23/17 06:08 Basophils % 0.5 11/23/17 06:08 Absolute Neutrophils 9.16 k/cumm (1.2-6.7) H 11/23/17 06:08 Absolute Lymphocytes 1.42 k/cumm (1.2-3.4) 11/23/17 06:08 Absolute Monocytes 0.70 k/cumm (0.11-0.7) 11/23/17 06:08 Absolute Eosinophils 0.30 k/cumm (0.0-0.7) 11/23/17 06:08 Absolute Basophils 0.06 k/cumm (0.0-0.2) 11/23/17 06:08 Metamyelocytes 1.0 % 11/20/17 07:03 Differential Comment 11/21/17 06:30 Atypical Lymphocytes 4 11/20/17 07:03 RBC Morphology Normal 11/21/17 06:30 Microcytosis 1+ 11/19/17 06:04 Target Cells 2+ 11/19/17 06:04 ESR 101 MM/HR (1-20) H 11/23/17 06:08 PT 10.6 sec (9.3-10.8) 11/14/17 12:50 INR 1.1 (1.0-3.5) 11/14/17 12:50 APTT 42.2 sec (21.0-31.4) H 11/18/17 06:12 D-Dimer 3345 ng/mlFEU (<500) H 11/14/17 12:50 Sodium 135 mmol/L (136-145) L 11/23/17 06:08 Potassium 4.1 mmol/L (3.5-5.1) 11/23/17 06:08 Chloride 102 mmol/L (98-107) 11/23/17 06:08 Carbon Dioxide 23.3 mmol/L (21.0-32.0) 11/23/17 06:08 Anion Gap 9.7 mmol/L (3-11) 11/23/17 06:08 BUN 11 mg/dL (7-18) 11/23/17 06:08 Creatinine 1.08 mg/dL (0.70-1.30) 11/23/17 06:08 Estimated GFR/1.73 m2 >= 60.00 (mL/min/1.73m2) 11/23/17 06:08 Glucose 160 mg/dL (70-100) H 11/23/17 06:08 Lactate 1.0 mmol/L (0.6-1.4) 11/18/17 09:55 Calcium 8.4 mg/dL (8.5-10.1) L 11/23/17 06:08 Magnesium 2.0 mg/dL (1.8-2.4) 11/17/17 06:25 Total Bilirubin 1.1 mg/dL (0.2-1.0) H 11/23/17 06:08 AST 70 U/L (15-37) H 11/23/17 06:08 ALT 168 U/L (12-78) H 11/23/17 06:08 Alkaline Phosphatase 286 U/L (46-116) H 11/23/17 06:08 Troponin I 0.05 ng/mL (0.00-0.06) 11/18/17 06:12 C-Reactive Protein 4.89 mg/dL (0.0-0.3) H 11/23/17 06:08 Total Protein 7.2 g/dL (6.4-8.2) 11/23/17 06:08 Albumin 2.5 g/dL (3.4-5.0) L 11/23/17 06:08 Lipase 146 U/L (73-393) 11/14/17 12:50 TSH 2.86 uIU/mL (0.358-3.74) 11/14/17 12:50 Urine Color Yellow (Yellow) 11/22/17 17:16 Urine Clarity Clear 11/22/17 17:16 Urine pH 6.5 (5-8) 11/22/17 17:16 Ur Specific [place] 1.020 (1.005-1.025) 11/22/17 17:16 Urine Protein Negative mg/dL (Negative) 11/22/17 17:16 Urine Ketones Negative mg/dL (Negative) 11/22/17 17:16 Urine Blood Negative (Negative) 11/22/17 17:16 Urine Nitrite Negative (Negative) 11/22/17 17:16 Urine Bilirubin Negative (Negative) 11/22/17 17:16 Urine Urobilinogen 0.2 EU/dL (Up TO 0.2) 11/22/17 17:16 Ur Leukocyte Esterase Negative (Negative) 11/22/17 17:16 Urine RBC 0-2 (0-2) 11/14/17 13:10 Urine WBC 5-10 HPF (0-5) 11/14/17 13:10 Ur Epithelial Cells Negative HPF (Negative) 11/14/17 13:10 Urine Crystals Negative HPF (Negative) 11/14/17 13:10 Urine Bacteria Rare HPF (Negative) 11/14/17 13:10 Urine Casts 0-2 hyaline LPF (Negative) 11/14/17 13:10 Urine Mucus Trace (Negative) 11/14/17 13:10 Ur Culture Indicated? Yes 11/14/17 13:10 Urine Glucose Negative mg/dL (Negative) 11/22/17 17:16 Stool Campylobacter PCR See comments 11/15/17 17:40 Stool Salmonella PCR See comments 11/15/17 17:40 Stool Shigella PCR See comments 11/15/17 17:40 Shiga Toxin (PCR) See comments 11/15/17 17:40
--- NOTE | 2017-11-23 15:43 | PDOC.PROG_ITS ---
Date of Service: 11/23/17 Time of Service: 15:37 Assessment/Plan - Assessment/Plan (1) Sigmoid diverticulitis Assessment: I spoke with Dr. Mckay Orr regarding this patient's workup and treatment of his sigmoid diverticulitis. He felt the patient was treated with the appropriate antibiotics and he did not see any abscess on the patient's CAT scans however he recommended getting an ultrasound of the patient's abdomen looking at his liver for potential hepatic abscess. Because the patient had been bacteremic he may have seeded his hepatic portal that there may be a nidus of an abscess that may be causing his fevers. Plan: Clinically the patient seems to be improving and I plan to switch him to oral antibiotics tomorrow however I think I will wait until we get the ultrasound of his liver and obtain a nuclear WBC scan looking for an abscess (2) E coli bacteremia Plan: Continue Zosyn and Flagyl parenterally until we get his repeat echocardiogram on Thursday and we can get a liver ultrasound and WBC nuclear scan (3) Septicemia, Pseudomonas Plan: As above (4) Sepsis due to Bacteroides species Plan: Continue IV Flagyl and Zosyn pending above studies (5) Non-ST elevated myocardial infarction Assessment: No symptoms of chest pain or pressure and no dyspnea Plan: Arrange an outpatient stress MPI upon discharge. Continue low-dose beta- sascha and aspirin along with pravastatin (6) Type 2 diabetes mellitus Assessment: Blood sugars continue to run high. He is currently on insulin for NovoLog per insulin sensitive scale. Plan: I will add low-dose Lantus at night and adjust his insulin scale and start him on carbohydrate coverage (7) Essential hypertension Assessment: Improving blood pressure control since addition of lisinopril Plan: Continue metoprolol lisinopril History of Present Illness - History of Present Illness Chief Complaint: Bacteremia and sepsis secondary to diverticulitis, non-STEMI History of Present Illness: Patient is finally gone over 24 hours without any fevers. He is currently being treated with Zosyn and metronidazole parenterally for multiple gram- negative and Clostridium bacteremia from sigmoid diverticulitis. Last fever was November 21, 2017 at 2139. He has had no chills and no rigors. His white cell count went up slightly today to 11,730 but over all he is feeling better. I discussed this case with Dr. Daquan Wayne for 2 reasons. One the patient sustained a non-ST elevation VT associated with sepsis. And then the other reason for discussing his case is concern for possible endocarditis. After reviewing the case Dr. Wayne feels that since the patient does not have any prosthetic valves it is unlikely he would develop endocarditis particularly since he is responding to the parenteral antibiotics. He recommended a repeat echocardiogram in the mid part of this week. As for his non-ST elevation VT he feels he can have stress MPI as an outpatient. I am going to change the patient to oral antibiotics and monitor his response with inflammatory markers and CBC as well as watch his temperature curve. If he has no fever on oral antibiotics the plan will be for him to be discharged in the middle of this week presuming that there is no new changes on his echocardiogram. I have also request a surgical consult to look over his case and review his CAT scan findings and make any follow-up recommendations regarding his diverticulitis. This afternoon I had the opportunity to speak with Dr. Mckay Vickers, general surgeon, he reviewed the patient's workup and treatment of his sigmoid diverticulitis with bacteremia. He did not see any abscess on the patient's CAT scans nevertheless with the patient's elevated LFTs he recommended getting an ultrasound of the patient's liver to make sure he did not seed bacteria into the liver bed causing a hepatic abscess. Therefore patient will continue on parenteral antibiotics pending his ultrasound of his abdomen. I also spoke with Dr. Daquan Wayne, youth care worker who recommended a repeat echocardiogram ( see above discussion). I have also decided to pursue a nuclear WBC scan for abscess localization. Review of Systems - Review of Systems Constitutional: denies: Fever, Chills, Sweats Respiratory: denies: Shortness of Breath Cardiovascular: Chest Pain (No chest pressure or heaviness but he did note a fleeting stinging sensation in the right axillary area which is been transient.) . denies: Palpitations Gastrointestinal: denies: Nausea, Vomiting, Abdominal Pain, Diarrhea - Medications/Allergies Allergies/Adverse Reactions: Allergies Allergy/AdvReac Type Severity Reaction Status Date / Time diclofenac [Diclofenac] AdvReac Intermediate DIZZY/LIGHT Unverified 11/14/17 12: 54 HEADED amlodipine AdvReac Mild PEDAL EDEMA Unverified 11/14/17 12:54 venlafaxine AdvReac Unknown Unverified 11/14/17 12:54 Medications: Current Medications Acetaminophen (Tylenol) 650 mg PO Q6H [facility] Last Admin: 11/23/17 12:13 Dose: 650 mg Acidophilus/Pectin (Acidophilus) 1 cap PO DAILY [facility] Last Admin: 11/23/17 08:31 Dose: 1 cap Al Hydrox/Mg Hydrox/Simethicone (Mylanta Liquid) 30 ml PO Q2H PRN PRN Ascorbic Acid (Vitamin C) 125 mg PO DAILY [facility] Last Admin: 11/23/17 08:30 Dose: 125 mg Aspirin () 81 mg PO DAILY [facility] Last Admin: 11/23/17 08:31 Dose: 81 mg Cholecalciferol (Vitamin D) 1,000 units PO BID [facility] Last Admin: 11/23/17 08:31 Dose: 1,000 units Dextrose (Insta-Glucose) 0 gm PO DIRECTED PRN Dextrose/Water () 0 gm IVP DIRECTED PRN Dimethicone/Zinc Oxide (Calixto Protect Cream) 0 gm TP PRN PRN Docusate Sodium (Colace) 100 mg PO TID PRN PRN Enoxaparin Sodium (Lovenox) 40 mg SC Q24H [facility] Last Admin: 11/23/17 15:21 Dose: 40 mg Fentanyl Citrate (Sublimaze) 50 mcg IVP Q2H PRN PRN PRN Reason: Pain or Fever Last Admin: 11/17/17 14:07 Dose: 50 mcg Sodium Chloride (Saline 500ml Bag) 500 mls @ 0 mls/hr IV PRN PRN PRN Reason: As Directed Last Admin: 11/23/17 09:27 Dose: 100 mls/hr Piperacillin/Tazobactam/Dextrose (Zosyn) 4.5 gm in 100 mls @ 200 mls/hr IVPB Q6H [facility] Last Admin: 11/23/17 09:27 Dose: 200 mls/hr Metronidazole (Flagyl) 500 mg in 100 mls @ 100 mls/hr IVPB Q6H [facility] Last Admin: 11/23/17 15:20 Dose: 100 mls/hr IV Miscellaneous Supplies () 1 each IV DIRECTED [facility] Insulin Aspart (Novolog Flexpen) 0 units SC 0800,1200,1700 [facility] PRN Reason: Protocol Last Admin: 11/23/17 12:14 Dose: 1 unit Lisinopril (Prinivil) 5 mg PO DAILY [facility] Last Admin: 11/23/17 08:31 Dose: 5 mg Magnesium Hydroxide (Milk Of Magnesia) 30 ml PO DAILY PRN PRN Metoprolol Succinate (Toprol Xl) 25 mg PO DAILY [facility] Last Admin: 11/23/17 08:30 Dose: 25 mg Non-Formulary Medication (Bee Pollen [Bee Pollen]) 550 mg PO BID [facility] Last Admin: 11/23/17 08:32 Dose: Not Given Non-Formulary Medication (Flaxseed/Omega3,6,9/Fatty Acid [Flax Seed Oil 1,300 Mg Softgel]) 1 each PO DAILY [facility] Last Admin: 11/23/17 08:32 Dose: Not Given Non-Formulary Medication (Quercetin) 1 cap PO DAILY [facility] Last Admin: 11/23/17 08:32 Dose: Not Given Non-Formulary Medication (Saw [place]le Fruit [Saw Hustle]) 450 mg PO DAILY [facility] Last Admin: 11/23/17 08:32 Dose: Not Given Omeprazole (Prilosec) 20 mg PO Q72H [facility] Last Admin: 11/22/17 07:40 Dose: 20 mg Pravastatin Sodium (Pravachol) 20 mg PO HS [facility] Last Admin: 11/22/17 21:12 Dose: 20 mg Sodium Chloride (Saline Flush 10 Ml Syringe) 0 ml IVP PRN PRN Last Admin: 11/23/17 15:21 Dose: 10 ml Vitamin B Complex/Vitamin C ([place] W/C) 1 tab PO DAILY [facility] Last Admin: 11/23/17 08:31 Dose: 1 tab Zinc Oxide/Phenylephrine/Wh Petrol (Preparation H Ointment) 0 gm SD BID PRN PRN Last Admin: 11/21/17 08:06 Dose: 1 applic Objective - Exam Vitals and I&O: Vital Signs Temp 36.6 C 11/23/17 11:45 Pulse 63 11/23/17 11:45 Resp 18 11/23/17 11:45 BP 126/68 11/23/17 11:45 Pulse Ox 97 11/23/17 11:45 Intake & Output 11/22/17 11/23/17 11/23/17 23:59 11:59 23:59 Intake Total 490 240 360 Output Total 1700 1800 850 Balance -1210 -1560 -490 Weight 93.1 kg Intake: Oral 490 240 360 Output: Urine 1700 1800 850 Other: Urine Color Yellow Yellow Yellow Urine Appearance Clear Clear Clear Urine Odor None Stool Size Moderate Large Moderate Stool Characteristics Soft Soft Soft Formed Formed Brown Brown Brown Voiding Methods Toilet Toilet Toilet General: Alert, Oriented x3, Cooperative, No acute distress Lungs: Clear to auscultation, Normal air movement Cardiovascular: Regular rate, Normal S1, Normal S2. denies: Murmurs, Gallops Abdomen: Normal bowel sounds, Soft. denies: Tenderness, Hepatospenomegaly, Masses Extremities: Normal pulses. denies: Edema Psych/Mental Status: Mental status NL, Mood NL - Results Results: Laboratory Results WBC 11.73 k/cumm (4.4-10.8) H 11/23/17 06:08 RBC 4.07 m/cumm (4.50-6.00) L 11/23/17 06:08 Hgb 11.9 g/dL (13.5-17.5) L 11/23/17 06:08 Hct 35.8 % (40.0-50.0) L 11/23/17 06:08 MCV 88.0 fL (80-95) 11/23/17 06:08 MCH 29.2 pg (27.0-33.0) 11/23/17 06:08 MCHC 33.2 g/dL (32.0-36.0) 11/23/17 06:08 RDW 16.4 % (11.8-14.1) H 11/23/17 06:08 Plt Count 330 x1000/uL (130-400) 11/23/17 06:08 MPV 9.8 fL (8.0-11.0) 11/23/17 06:08 Immature Gran % 0.7 11/23/17 06:08 Neutrophils % 78.1 11/23/17 06:08 Lymphocytes % 12.1 11/23/17 06:08 Monocytes % 6.0 11/23/17 06:08 Eosinophils % 2.6 11/23/17 06:08 Basophils % 0.5 11/23/17 06:08 Absolute Neutrophils 9.16 k/cumm (1.2-6.7) H 11/23/17 06:08 Absolute Lymphocytes 1.42 k/cumm (1.2-3.4) 11/23/17 06:08 Absolute Monocytes 0.70 k/cumm (0.11-0.7) 11/23/17 06:08 Absolute Eosinophils 0.30 k/cumm (0.0-0.7) 11/23/17 06:08 Absolute Basophils 0.06 k/cumm (0.0-0.2) 11/23/17 06:08 Metamyelocytes 1.0 % 11/20/17 07:03 Differential Comment 11/21/17 06:30 Atypical Lymphocytes 4 11/20/17 07:03 RBC Morphology Normal 11/21/17 06:30 Microcytosis 1+ 11/19/17 06:04 Target Cells 2+ 11/19/17 06:04 ESR 101 MM/HR (1-20) H 11/23/17 06:08 PT 10.6 sec (9.3-10.8) 11/14/17 12:50 INR 1.1 (1.0-3.5) 11/14/17 12:50 APTT 42.2 sec (21.0-31.4) H 11/18/17 06:12 D-Dimer 3345 ng/mlFEU (<500) H 11/14/17 12:50 Sodium 135 mmol/L (136-145) L 11/23/17 06:08 Potassium 4.1 mmol/L (3.5-5.1) 11/23/17 06:08 Chloride 102 mmol/L (98-107) 11/23/17 06:08 Carbon Dioxide 23.3 mmol/L (21.0-32.0) 11/23/17 06:08 Anion Gap 9.7 mmol/L (3-11) 11/23/17 06:08 BUN 11 mg/dL (7-18) 11/23/17 06:08 Creatinine 1.08 mg/dL (0.70-1.30) 11/23/17 06:08 Estimated GFR/1.73 m2 >= 60.00 (mL/min/1.73m2) 11/23/17 06:08 Glucose 160 mg/dL (70-100) H 11/23/17 06:08 Lactate 1.0 mmol/L (0.6-1.4) 11/18/17 09:55 Calcium 8.4 mg/dL (8.5-10.1) L 11/23/17 06:08 Magnesium 2.0 mg/dL (1.8-2.4) 11/17/17 06:25 Total Bilirubin 1.1 mg/dL (0.2-1.0) H 11/23/17 06:08 AST 70 U/L (15-37) H 11/23/17 06:08 ALT 168 U/L (12-78) H 11/23/17 06:08 Alkaline Phosphatase 286 U/L (46-116) H 11/23/17 06:08 Troponin I 0.05 ng/mL (0.00-0.06) 11/18/17 06:12 C-Reactive Protein 4.89 mg/dL (0.0-0.3) H 11/23/17 06:08 Total Protein 7.2 g/dL (6.4-8.2) 11/23/17 06:08 Albumin 2.5 g/dL (3.4-5.0) L 11/23/17 06:08 Lipase 146 U/L (73-393) 11/14/17 12:50 TSH 2.86 uIU/mL (0.358-3.74) 11/14/17 12:50 Urine Color Yellow (Yellow) 11/22/17 17:16 Urine Clarity Clear 11/22/17 17:16 Urine pH 6.5 (5-8) 11/22/17 17:16 Ur Specific [place] 1.020 (1.005-1.025) 11/22/17 17:16 Urine Protein Negative mg/dL (Negative) 11/22/17 17:16 Urine Ketones Negative mg/dL (Negative) 11/22/17 17:16 Urine Blood Negative (Negative) 11/22/17 17:16 Urine Nitrite Negative (Negative) 11/22/17 17:16 Urine Bilirubin Negative (Negative) 11/22/17 17:16 Urine Urobilinogen 0.2 EU/dL (Up TO 0.2) 11/22/17 17:16 Ur Leukocyte Esterase Negative (Negative) 11/22/17 17:16 Urine RBC 0-2 (0-2) 11/14/17 13:10 Urine WBC 5-10 HPF (0-5) 11/14/17 13:10 Ur Epithelial Cells Negative HPF (Negative) 11/14/17 13:10 Urine Crystals Negative HPF (Negative) 11/14/17 13:10 Urine Bacteria Rare HPF (Negative) 11/14/17 13:10 Urine Casts 0-2 hyaline LPF (Negative) 11/14/17 13:10 Urine Mucus Trace (Negative) 11/14/17 13:10 Ur Culture Indicated? Yes 11/14/17 13:10 Urine Glucose Negative mg/dL (Negative) 11/22/17 17:16 Stool Campylobacter PCR See comments 11/15/17 17:40 Stool Salmonella PCR See comments 11/15/17 17:40 Stool Shigella PCR See comments 11/15/17 17:40 Shiga Toxin (PCR) See comments 11/15/17 17:40
--- NOTE | 2017-11-23 16:05 | SATEXT_ITS ---
Assessment: Mr. Westbrook was admitted on 11/14/17 with sepsis. He is on carbohydrate controlled nutrition therapy. He is eating 75-100 % of his meals, however he describes that he is weak and it is difficult for him to get through the whole meal. Serial weights show that he has had a 7.5% weight loss since admission which is significant. He does report that his admission weight of 100.6 kg is his usual body weight. His weight today is 93.1 kg. He is 71. His BMI is 29.4 kg/m2 which is WNL for his age. Nutritional Diagnosis: Unintentional weight loss related to poor appetite and poor PO intake as evidenced by 7.5% weight loss in one week. Intervention: Encouraged Mr. Westbrook to focus on nutrient dense foods especially proteins to help preserve his lean body mass while he recovers. He does not like Glucerna protein drink but he would like to try a [place] Instant Breakfast drink. We will give him a 4 oz. CIB which will have 25 grams of carbohydrate, which will be noted on his menu. Also encouraged Mr. Westbrook to focus on his eggs, [place] yogurt, chicken, fish etc. and other good sources of protein to help prevent further weight loss and prevent loss of lean body mass. Monitoring and Evaluation: 1. Will monitor weight and PO intake. 2. Will evaluate nutrition care plan ongoing and adjust as needed.
[2017-11-23] MEDS: Pravastatin 20 MG TAB PO (21:44)
[2017-11-23] MEDS: Insulin Glargine 300 UNITS/3 ML PEN 10 UNITS SC (22:23)
--- NOTE | 2017-11-23 22:26 | SCONE_ITS ---
DATE OF CONSULTATION: November 23, 2017 ASSESSMENT: [id number]-old male with resolving fevers and rigors. RECOMMENDATIONS: The patient is currently being treated for diverticulitis though CT is underwhelmin g for diverticulitis that would be so severe to cause his rigors, though the cultures have grown out organisms that would be consistent with a stool source. He does have a history of coxsackievirus whi ch can cause fevers so it could be viral source but, again, rigors are not usually associated with th is. There is no real valid source in his chest, abdomen, or pelvis. The question is if he could hav e a tickborne plasmosis or other process going on. These can cause fevers, though it is unusual to c ause rigors, and it does not explain his positive blood cultures. Another thing to rule out would be a liver abscess which can present with rigors and intermittent fevers. It may not be visible on CT for quite some time. It could partially respond to antibiotics, though if it is an abscess it will n eed to get better for awhile and the antibiotics would not be able to fully penetrate. So I recommen d an ultrasound of the liver to rule out abscess, especially since he has some slightly elevated live r enzymes and bilirubin. He could have had diverticulitis that spread the infection to the liver and it not impossible that that could be feeding. A cardiac source has been ruled out. No vegetation s een though a PAT might be more accurate to completely rule out a vegetation, which could also spread to the liver, and could proceed further from there. Further recommendations will be pending clinical and diagnostic findings. CONSULTING PHYSICIAN: Mckay Orr D.O. REFERRING PHYSICIAN: Sujit Mckeon M.D. CONSULTATION REGARDING: I was asked to consult on treatment of diverticulitis in a 72-year-old male who presented with fevers and rigors. HISTORY OF PRESENT ILLNESS: This is a 72-year-old gentleman who originally presented to the Emergenc y Room with episodes of fever and rigors. He was hypoxic on presentation and in sinus tachycardia. He had been complaining of some GI upset the night prior. He does have a history of diverticulosis. On presentation to the Emergency Room, workup did question a diverticulitis. He responded well to f luid hydration but after this he started to develop a troponin leak which was thought to be from isch emic demand. Subsequently he had shortness of breath and chest pain. This resolved with resolution of his rigors. He was admitted for monitoring of his hypoxia. He was started for presumptive treatm ent of diverticulitis. ALLERGIES: Diclofenac but he is able to take other NSAIDs. MEDICATIONS: Metformin Omeprazole Pravastatin Naproxen Tylenol Vitamin C Vitamin D Bee pollen Flaxseed Lactobacillus Quercetin [place] Vitamin B complex [place] PAST MEDICAL HISTORY: 1. Noninsulin-dependent type 2 diabetes. 2. Hyperlipidemia. 3. Peptic ulcer disease. 4. Essential hypertension. 5. Obesity. 6. History of diverticulosis. 7. Chronic back pain with bilateral sciatica. PAST SURGICAL HISTORY: 1. Bilateral inguinal hernia repairs. 2. Arthroscopy of the left shoulder. 3. Tonsillectomy and adenoidectomy as a child. SOCIAL HISTORY: He is a former smoker with a [id number] history. Rare alcohol. Denies marijuana or other substance abuse. He is currently a FULL CODE. FAMILY HISTORY: There is a history of depression, diabetes, hypertension, heart disease, and leukemi a. REVIEW OF SYSTEMS: As stated in the history of present illness; otherwise negative other than his wa gricelda and waning fevers. PHYSICAL EXAMINATION: VITAL SIGNS: T-max for the last 24 hours has been 37.8, T-current was 37. Most recent set of vital signs show: Blood pressure 116/63. Pulse 65. Respirations 18. O2 saturation 98% on room air. He weighs 93 kg. GENERAL: He is awake, alert, appropriate. LUNGS: He has normal air movement, no wheezing or stridor. HEART: Regular. ABDOMEN: Soft, nontender, nondistended besides being obese. EXTREMITIES: There is no clubbing, cyanosis, or edema. INTEGUMENT: Warm and dry. LABS: Today potassium is 4.1. CO2 23. BUN 11. Creatinine 1.08. Calcium 8.4. Total bilirubin 1.1 . AST 70. ALT 168. Alkaline phosphatase 286. C-reactive protein 4.89. Total protein 7.2. Albumi n 2.5. White count 11.7, which is going up; it was 8.8 two days ago and it was only 8.4 on admission. Hemog lobin 11.9. Hematocrit 36. Platelets 330,000. Sed rate is 101. Urinalysis is negative. Blood cultures from 11/14 on his presentation had shown E. coli, B. fragilis, Pseudomonas. RADIOLOGY: CT abdomen and pelvis on admission - impression was some sigmoid diverticulitis which see med improved with no new abnormalities and prominent diverticulosis of the sigmoid region. Chest x-ray from today, 11/23/17, showed no acute pulmonary process.
[2017-11-24 04:14] VITALS: BP 166/76; PULSE 67; RESP 18; TEMP 36.5; O2SAT 98
[2017-11-24] MEDS: MetroNIDAZOLE 500 MG/100 ML BAG 100 MG IVPB ×4 (04:49→22:12)
[2017-11-24] MEDS: Normal Saline Flush 10 ML SYR IVP ×5 (04:50→22:10)
[2017-11-24] MEDS: Acetaminophen 325 MG TAB 650 MG PO ×3 (05:59→18:07)
--- NOTE | 2017-11-24 07:02 | DI.REPORT_ITS ---
SYMPTOM/DIAGNOSIS: BACTEREMIA, SIGMOID DIVERTICULITIS, ? ABSCESS, ELEVATED TRANSAMINASE WHITE BLOOD CELL IMAGIN.3 millicuries of TC 99 Exametazime WBC were injected. Increased photon density is demonstrated within the liver and spleen and axial marrow. Note is also made of intense pulmonary activity on the 1 hour series which diminishes on the 2.5 hour delayed scan. activity is within normal limits. SUMMARY: Normal Technetium 99 M WBC scan.
[2017-11-24 07:08] LABS: Abs Immature Grans 0.04 k/cumm (0.0-0.09); Absolute Basophil Count 0.08 k/cumm (0.0-0.2); Absolute Eosinophil Count 0.36 k/cumm (0.0-0.7); Absolute Lymphocyte Count 2.09 k/cumm (1.2-3.4); Absolute Monocyte Count 0.74 k/cumm (0.11-0.7); Absolute Neutrophil Count 3.65 k/cumm (1.2-6.7); Basophils % 1.1; Eosinophils % 5.2; HCT 35.2 % (40.0-50.0); HGB 11.6 g/dL (13.5-17.5); Immature Grans % 0.6; Mean Corpuscular Hemoglobin 29.4 pg (27.0-33.0); Mean Corpuscular Volume 89.1 fL (80-95); Mean Platelet Volume 9.8 fL (8.0-11.0); Monocytes % 10.6; Neutrophils % 52.5; Platelet Count 340 x1000/uL (130-400); RBC 3.95 m/cumm (4.50-6.00); RBC Distribution Width 16.5 % (11.8-14.1); White Blood Cell Count 6.96 k/cumm (4.4-10.8)
[2017-11-24 07:21] LABS: C-Reactive Protein 4.65 mg/dL (0.0-0.3)
--- NOTE | 2017-11-24 07:39 | DI.REPORT_ITS ---
SYMPTOM/DIAGNOSIS: ELEVATED TRANSAMINASES. ABDOMINAL ULTRASOUND: Comparison CT is 11/19/17. The aorta and IVC are unremarkable. The liver shows diffuse increased echogenicity consistent with fatty infiltration. No hepatic mass is seen. The liver is enlarged. The gallbladder and common bile duct are unremarkable as is the pancreas. The spleen is enlarged measuring almost 14 cm in length. The kidneys are normal in size. There are bilateral renal cysts noted. IMPRESSION: 1. Hepatic steatosis, hepatosplenomegaly 2. Bilateral renal cysts.
[2017-11-24 07:50] VITALS: O2SAT 97
[2017-11-24] MEDS: Aspirin 81 MG CHEW PO (08:36)
[2017-11-24] MEDS: Lisinopril 5 MG TAB PO (08:36)
[2017-11-24] MEDS: Lactobacillus Acidophilus CAP 1 CAP PO (08:36)
[2017-11-24] MEDS: Metoprolol CR 25 MG TABCR PO (08:36)
[2017-11-24] MEDS: Ascorbic Acid 500 MG TAB 125 MG PO (08:36)
[2017-11-24] MEDS: Vitamins B Comp w/C TAB 1 TAB PO (08:36)
[2017-11-24] MEDS: Insulin Aspart 300 UNITS/3 ML PEN SC ×5 (08:36→18:11)
[2017-11-24 11:10] VITALS: BP 111/63; PULSE 64; RESP 22; TEMP 36.8; O2SAT 99
--- NOTE | 2017-11-24 13:41 | PDOC.CMPRO ---
Date of Service: 11/24/17 Time of Service: 13:41 Care Management Progress Note S/O: CM met with Clovis today whom states that he is hopeful to return home tomorrow. Clovis states I'm feeling depressed. He states that it is very hard for him to be away from his and that she has difficulty when it is hot out with her breathing. Clovis is ambulating independently in the halls this afternoon, today he is scheduled for an abdominal US and Echo. A: Josue is a 72 year old male admitted to [facility] 11/14/17 with sepsis and positive blood cultures, dehydration, fever and colitis. P: Josue will return home when medically ready per provider. His family will transport him home at time of discharge. No additional services anticipated.
--- NOTE | 2017-11-24 13:45 | CMPROGNOTE_ITS ---
Date of Service: 11/24/17 Time of Service: 13:41 Care Management Progress Note S/O: CM met with Clovis today whom states that he is hopeful to return home tomorrow. Clovis states I'm feeling depressed. He states that it is very hard for him to be away from his and that she has difficulty when it is hot out with her breathing. Clovis is ambulating independently in the halls this afternoon, today he is scheduled for an abdominal US and Echo. A: Josue is a 72 year old male admitted to [facility] 11/14/17 with sepsis and positive blood cultures, dehydration, fever and colitis. P: Josue will return home when medically ready per provider. His family will transport him home at time of discharge. No additional services anticipated.
--- NOTE | 2017-11-24 15:30 | CHAPLAIN ---
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 He said he is feeling better, but is anxious to get home to care for his Liyah who has COPD and requires oxygen. A grandson has been staying with her for the past couple of days. Clovis said he feels week from not being active and fuzzy-headed. He has been here over a week now. Coworkers have been checking in on Clovis, and Pastor Simpson, from the [facility] has visited him.
--- NOTE | 2017-11-24 15:34 | PGE_ITS ---
DATE OF SERVICE: November 24, 2017 ASSESSMENT AND PLAN: #1. Sepsis. Appears to be resolved. #2. Bacteremia. Evidence of multi-organism bacteremia, mainly of GI pathogens in the setting of acu te diverticulitis. Blood cultures are showing fluoroquinolone-resistant E. coli, Pseudomonas, and a Bacteroides species that is possibly Clostridium. Due to the severity of his symptoms Mr. Westbrook was initially started on antibiotic therapy with Zosyn, but continued to have fevers until the addition of metronidazole in t he setting of potential Clostridium infection as well. Continue day #9 of Zosyn, day #3 of metronidazole. Still awaiting final speciation of the Bacteroide s species that is potentially Clostridium, lab that is a send out. Continue to monitor symptomatical ly. Blood cultures subsequent to 11/14 have all remained without growth, latest remaining clear for > 24 hours from 11/22/17. A repeat echocardiogram is also pending to rule out any vegetation, albeit a r epeat TTE as per Cardiology recommendations. #3. Elevated LFTs. Evidence of mild elevation in LFTs, with potential concern for seeding of the li paz in the setting of bacteremia. Liver ultrasound does not appear to show any evidence of abscess. Mild elevation of LFTs is potentially drug induced in the setting of use of Zosyn. Monitor closely. #4. Diabetes. Continue current management of long-acting insulin, sliding scale coverage, and ADA d iet. Metformin continues to be on hold. #5. Hypertension. Continue current regimen of LA inhibitor and beta sascha therapy. #6. Elevated troponin. Mild elevation in troponin in the setting of sepsis likely represents demand ischemia, especially given EKG was nonischemic in appearance at the time. However, as the patient h as a history of hypertension, diabetes, and dyslipidemia, he may have underlying coronary disease. Mr. Westbrook was initially treated with a heparin drip, and maintained on his home regimen of statin and aspirin, with the addition of low-dose beta sascha therapy. Echocardiogram does not show any evide nce of wall motion abnormalities. Possibility for PE was also entertained, but with a CT showing no evidence of PE at that time. This likely represented demand ischemia, but given his comorbidities re commend outpatient stress testing. #7. Prophylaxis. Subcutaneous Lovenox. PPI therapy. #8. Code status - FULL CODE. Greater than 40 minutes were spent in reviewing patient's results and in coordination of his care. SUBJECTIVE: G[age]nb[age] man with a past medical history significant for diabetes, hypertens ion, and high cholesterol admitted from the [facility] Emergency Department on November 14 with complaints of fever and rigors, and evidence of bacteremia by blood cultures. Mr. Westbrook had had a two-day history of fevers and intense rigors at home, malaise and diarrhea with s ome vomiting. On presentation he was noted to be pale and tachycardic and acutely ill appearing, wit h a CT of the abdomen and pelvis showing signs of potential sigmoid diverticulitis. The remainder of his infectious workup was negative. Blood cultures grew initially gram-negative volodymyr as well as gram -positive rods, now speciated to E. coli and Pseudomonas, as well as a Bacteroides species that is po ssibly Clostridium. Mr. Westbrook continued to have fevers despite treatment with Zosyn, albeit improved , but has now been afebrile with the addition of metronidazole. No overnight events were reported. The patient reports feeling vastly improved. He also remains afebrile. PHYSICAL EXAM: General: The patient appears comfortable sitting out of bed in chair, no acute distress noted. Vitals: Temperature 36.8 and afebrile, with last fever of 38.1 occurring at approximately 9:30 p.m. on the 21 of November. Blood pressure 111/63. Heart rate 64. Pulse oximetry 99% on room air. Neck: Supple. CV: Regular, no rubs, murmurs, or gallops appreciated. Pulm: Clear to auscultation bilaterally without crackles, rhonchi, or wheezing. Abdomen: Bowel sounds present. Soft, nontender, nondistended. Vascular: No overt lower extremity edema noted. LABS: Comprehensive metabolic panel not performed today. CRP rechecked and essentially unchanged fr om yesterday at 4.65, but down from an initial value of 8.81 at the time of admission. ESR of 101. CBC with a normal white blood count and a differential with 52.5% neutrophils, 30 lympho cytes, and 10.6 monocytes. Hemoglobin stable at 11.6. Platelet count of 340,000. STUDIES: #1. Abdominal ultrasound: Hepatic steatosis, hepatosplenomegaly, bilateral renal cysts. #2. Chest x-ray performed 11/22/17: No acute cardiopulmonary process. #3. CT of the abdomen and pelvis: Some improve in sigmoid diverticulitis. No new abnormality or ab scess seen. #4. Echocardiogram performed 11/16/17: Normal LV ejection fraction. Normal diastolic function. Mod erately reduced RV systolic function with moderate TR and PA pressures of 30-40 mmHg.
[2017-11-24 16:02] VITALS: BP 122/68; PULSE 61; RESP 18; TEMP 36.7; O2SAT 97
[2017-11-24] MEDS: Enoxaparin 40 MG/0.4 ML SYR SC (18:07)
[2017-11-24 19:26] VITALS: BP 110/65; PULSE 66; RESP 19; TEMP 36.7; O2SAT 97
--- NOTE | 2017-11-24 19:49 | DI.VRAD_ITS ---
EXAM: [facility] CLINICAL HISTORY: 72 years old, male; Signs and symptoms; Symptoms: Abnormal blood work, gram negative bacteremia, sigmoid diverticulitis, R/O abscess TECHNIQUE: Anterior and posterior whole-body images were obtained approximately 1 hour and 2.5 hours hours following administration of the patient's white blood cells radiolabeled with Approximately 12.3 mCi of technetium 99m HMPAO. COMPARISON: There is no prior technetium 99m WBC scan for comparison. FINDINGS: Technetium 99m WBC scan demonstrates physiologic radiotracer activity within the liver, spleen, and axial marrow. There is expected intense pulmonary activity on one-hour series which diminishes on 2.5 hour scan, also expected. There is expected distribution of the radiotracer within genitourinary system. Likely injection site within right upper extremity. IMPRESSION: Normal technetium 99m WBC scintigraphy. No evidence of an active infectious process. Physiologic distribution of the radiotracer within the reticuloendothelial and genitourinary system. Expected uptake within lungs on the earlier scan. Dictated and Authenticated by: Jimmy Amaya MD. Ordering:DYLAN HUNT MD
[2017-11-24] MEDS: Mylanta Suspension 30 ML CUP PO (21:26)
[2017-11-24] MEDS: Insulin Glargine 300 UNITS/3 ML PEN 10 UNITS SC (22:11)
[2017-11-24] MEDS: Pravastatin 20 MG TAB PO (22:12)
[2017-11-25] VITALS (8 sets, daily range): BP systolic 123–160; BP diastolic 65–76; PULSE 58–69; RESP 16–24; TEMP 36.2–37; O2SAT 95–98
[2017-11-25] MEDS: Normal Saline Flush 10 ML SYR IVP ×4 (04:19→21:12)
[2017-11-25] MEDS: MetroNIDAZOLE 500 MG/100 ML BAG 100 MG IVPB ×4 (04:19→21:56)
[2017-11-25] MEDS: Acetaminophen 325 MG TAB 650 MG PO ×5 (06:18→23:23)
[2017-11-25 07:13] LABS: Abs Immature Grans 0.02 k/cumm (0.0-0.09); Absolute Basophil Count 0.06 k/cumm (0.0-0.2); Absolute Eosinophil Count 0.38 k/cumm (0.0-0.7); Absolute Lymphocyte Count 1.88 k/cumm (1.2-3.4); Absolute Neutrophil Count 2.75 k/cumm (1.2-6.7); Basophils % 1.1; Eosinophils % 6.7; HCT 35.9 % (40.0-50.0); HGB 11.7 g/dL (13.5-17.5); Immature Grans % 0.4; Mean Corp. HGB Concentration 32.6 g/dL (32.0-36.0); Mean Corpuscular Hemoglobin 29.1 pg (27.0-33.0); Mean Corpuscular Volume 89.3 fL (80-95); Mean Platelet Volume 9.9 fL (8.0-11.0); Monocytes % 10.5; Neutrophils % 48.3; Platelet Count 386 x1000/uL (130-400); RBC 4.02 m/cumm (4.50-6.00); RBC Distribution Width 16.7 % (11.8-14.1); White Blood Cell Count 5.69 k/cumm (4.4-10.8)
[2017-11-25 07:28] LABS: Anion Gap 11.2 mmol/L (3-11); BUN 11 mg/dL (7-18); C-Reactive Protein 2.27 mg/dL (0.0-0.3); CO2 23.8 mmol/L (21.0-32.0); CREATININE 1.08 mg/dL (0.70-1.30); Calcium 8.4 mg/dL (8.5-10.1); Chloride 105 mmol/L (98-107); Glucose 136 mg/dL (70-100); Potassium 3.8 mmol/L (3.5-5.1); Sodium 140 mmol/L (136-145)
[2017-11-25] MEDS: Ascorbic Acid 500 MG TAB 125 MG PO (07:39)
[2017-11-25] MEDS: Metoprolol CR 25 MG TABCR PO (07:39)
[2017-11-25] MEDS: Lisinopril 5 MG TAB PO (07:39)
[2017-11-25] MEDS: Aspirin 81 MG CHEW PO (07:39)
[2017-11-25] MEDS: Vitamins B Comp w/C TAB 1 TAB PO (07:40)
[2017-11-25] MEDS: Omeprazole 20 MG CAPCR PO (07:40)
[2017-11-25] MEDS: Lactobacillus Acidophilus CAP 1 CAP PO (07:40)
[2017-11-25 07:49] LABS: ALT 103 U/L (12-78); AST 43 U/L (15-37); Albumin 2.5 g/dL (3.4-5.0); Alkaline Phosphatase 213 U/L (46-116); Bilirubin, Direct 0.33 mg/dL (0.00-0.20); Bilirubin, Total 0.6 mg/dL (0.2-1.0); Total Protein 7.2 g/dL (6.4-8.2)
[2017-11-25] MEDS: Insulin Aspart 300 UNITS/3 ML PEN SC ×5 (08:27→17:35)
[2017-11-25 08:46] LABS: ESR 97 MM/HR (1-20)
--- NOTE | 2017-11-25 09:05 | MERGE_ITS ---
*[facility]* *[facility]* [address] [place] [address] Date of study: 11/25/2017 Transthoracic Echocardiography M-mode, complete 2D, complete spectral Doppler, and color Doppler *STUDY CONCLUSIONS* Impressions: No evidence of endocarditis on this high quality study. Summary: 1. Left ventricle: The cavity size was normal. There was mild focal basal hypertrophy of the septum. Systolic function was normal. The estimated ejection fraction was 60-65%. Wall motion was normal; there were no regional wall motion abnormalities. 2. Right ventricle: The cavity size was normal. Wall thickness was normal. Systolic function was normal. *PATIENT PRESENTATION* Height: 177.8cm ((70in) ) S/D Pressure: 126 / 70 Weight: 93kg ((204.6lb) ) BSA: 2.17m^2 Test start time: 09:10 AM. Test stop time: 10:00 AM. PERFORMING Unknown PERFORMING Nv ORDERING Sujit Mckeon REFERRING Sujit Mckeon [employer] RT Vikas (R)(CT), SAMUEL *PROCEDURE DATA* Procedure information: The patient was identified by two identifiers. This study was interpreted by [facility]. Pertinent images and digital data are archived for permanent storage and are available for subsequent review. Comparison was made to the study of 11/16/2017. Study status: Routine. Transthoracic echocardiography. M-mode, complete 2D, complete spectral Doppler, and color Doppler. A Transthoracic Echocardiogram was performed. Scanning was performed from the parasternal, apical, subcostal, and suprasternal notch acoustic windows. Images were obtained using an [id number]. cardiac ultrasound machine. Study completion: The patient tolerated the procedure well. There were no complications. History: PMH: Bacteremia 2nd to diverticulitis r/o veg. NSTEMI sigmoid diverticulitis. *CARDIAC ANATOMY* Left ventricle: The cavity size was normal. There was mild focal basal hypertrophy of the septum. Systolic function was normal. The estimated ejection fraction was 60-65%. Wall motion was normal; there were no regional wall motion abnormalities. Diastolic parameters were normal for age. Aortic valve: Trileaflet; normal thickness leaflets. Mobility was not restricted. Doppler: Transvalvular velocity was within the normal range. There was no stenosis. There was no significant regurgitation. VTI ratio of LVOT to aortic valve: 0.7. Valve area (VTI): 2.5cm^2. Indexed valve area (VTI): 1.2cm^2/m^2. Peak velocity ratio of LVOT to aortic valve: 0.67. Valve area (Vmax): 2.4cm^2. Indexed valve area (Vmax): 1.1cm^2/m^2. Mean velocity ratio of LVOT to aortic valve: 0.69. Valve area (Vmean): 2.5cm^2. Indexed valve area (Vmean): 1.2cm^2/m^2. Mean gradient (S): 5mm Hg. Peak gradient (S): 10.3mm Hg. Aorta: Aortic root: The aortic root was normal in size. Ascending aorta: The ascending aorta was normal in size. Mitral valve: Structurally normal valve. Mobility was not restricted. Doppler: Transvalvular velocity was within the normal range. There was no evidence for stenosis. There was no significant regurgitation. Valve area by pressure half-time: 3.4cm^2. Indexed valve area by pressure half-time: 1.6cm^2/m^2. Left atrium: The atrium was normal in size. Right ventricle: The cavity size was normal. Wall thickness was normal. Systolic function was normal. Pulmonic valve: Structurally normal valve. Doppler: Transvalvular velocity was within the normal range. There was no evidence for stenosis. There was mild regurgitation. Peak gradient (S): 4mm Hg. Tricuspid valve: Structurally normal valve. Doppler: Transvalvular velocity was within the normal range. There was no evidence for stenosis. There was mild regurgitation. Pulmonary artery: Pulmonary systolic pressure was within the normal range, in the range of 30mm Hg to 35mm Hg. Right atrium: The atrium was normal in size. Pericardium: There was no pericardial effusion. Systemic veins: Inferior vena cava: Well visualized. The vessel was patent and normal in size. The respirophasic diameter changes were in the normal range (greater than or equal to 50%). Baseline ECG: Sinus bradycardia. Measurements Left ventricle Value 11/16/2017 Reference LV ID, ED, PLAX 4.9 cm 5.2 3.5 - 6.0 LV ID, ES, PLAX 3.2 cm 3.2 2.1 - 4.0 LV PW thickness, ED, PLAX 1.0 cm 1.0 LV end-diastolic volume, 94 ml 116 1-p A2C LV ejection fraction, 1-p 53 % 59 A2C LV end-diastolic volume, 95 ml 89 1-p A4C LV ejection fraction, 1-p 65 % 52 A4C LV e', lateral 0.083 m/sec 0.093 LV E/e', lateral 7 8 LV e', medial 0.055 m/sec 0.082 LV E/e', medial 11 9 LV e', average 0.069 m/sec 0.087 LV E/e', average 9 8 Ventricular septum Value 11/16/2017 Reference IVS thickness, ED, PLAX 1.0 cm 1.0 LVOT Value 11/16/2017 Reference LVOT ID, A-P 2.1 cm 2.2 LVOT area 3.6 cm^2 3.7 LVOT peak velocity, S 1.08 m/sec 1.03 LVOT mean velocity, S 0.72 m/sec 0.66 LVOT VTI, S 23.8 cm 23.4 LVOT peak gradient, S 4.7 mm Hg 4.3 LVOT mean gradient, S 2.4 mm Hg 2.1 Stroke volume (SV), LVOT 86 ml 86 DP Stroke index (SV/bsa), 40 ml/m^2 38 LVOT DP Aortic valve Value 11/16/2017 Reference Aortic valve peak 1.6 m/sec 1.3 velocity, S Aortic valve mean 1.05 m/sec 0.89 velocity, S Aortic valve VTI, S 34.2 cm 26.5 Aortic mean gradient, S 5 mm Hg 3.4 Aortic peak gradient, S 10.3 mm Hg 6.8 VTI ratio, LVOT/AV 0.7 0.88 Aortic valve area, VTI 2.5 cm^2 3.2 Velocity ratio, peak, 0.67 0.79 LVOT/AV Aortic valve area, peak 2.4 cm^2 2.9 velocity Velocity ratio, mean, 0.69 0.75 LVOT/AV Aortic valve area, mean 2.5 cm^2 2.7 velocity Aortic valve area/bsa, 1.2 cm^2/m^2 1.2 mean velocity Aorta Value 11/16/2017 Reference Aortic root ID, ED 3.7 cm 3.6 Ascending aorta ID, A-P, S 3.5 cm 3.6 RVOT Value 11/16/2017 Reference RVOT VTI, S 15.6 cm 18.9 Left atrium Value 11/16/2017 Reference LA ID, A-P, ES 4.5 cm 3.9 LA ID/bsa, A-P 2.1 cm/m^2 1.7 <=2.2 LA area, ES, A4C 22.6 cm^2 23.6 8.8 - 23.4 LA area, ES, A2C 21 cm^2 21 LA volume/bsa, ES, 1-p A4C 38 ml/m^2 37 LA volume, ES, 2-p 66 ml 65 LA volume/bsa, ES, 2-p 31 ml/m^2 29 LA/aortic root ratio 1.24 1.07 Mitral valve Value 11/16/2017 Reference Mitral E-wave peak 0.59 m/sec 0.72 velocity Mitral A-wave peak 0.76 m/sec 0.89 velocity Mitral deceleration time 225 ms 169 150 - 230 Mitral pressure half-time 65 ms 49 Mitral E/A ratio, peak 0.78 0.81 Mitral valve area, PHT, DP 3.4 cm^2 4.5 Pulmonary veins Value 11/16/2017 Reference Pulmonary vein peak 0.7 m/sec velocity, S Pulmonary vein peak 0.47 m/sec velocity, D Pulmonary vein velocity 1.5 ratio, peak, S/D Pulmonary vein A-wave 0.3 m/sec reversal peak velocity Pulmonary vein A-wave 227 ms reversal duration Tricuspid valve Value 11/16/2017 Reference Tricuspid regurg peak 2.8 m/sec 2.8 velocity Tricuspid peak RV-RA 30.7 mm Hg 31.1 gradient Right atrium Value 11/16/2017 Reference RA area, ES, A4C 17.2 cm^2 16.5 8.3 - 19.5 Pulmonic valve Value 11/16/2017 Reference Pulmonic peak gradient, S 4 mm Hg 2.5 Legend: (L) and (H) david values outside specified reference range. I have personally reviewed the images and have reviewed and edited the reported findings. Electronically signed by Valeriy Krishnamurthy 11/25/2017 10:51
[2017-11-25] MEDS: Potassium Chloride 20 MEQ TABCR PO (10:25)
--- NOTE | 2017-11-25 10:49 | DI.REPORT_ITS ---
SYMPTOM/DIAGNOSIS: BACTEREMIA, ELEVATED LFTs. ACUTE DIVERTICULITIS ABDOMINAL ULTRASOUND: A limited study was obtained to assess the status of the portal vein. Hepatopedal flow is noted at both branches, junction of the right and left portal branches and in the mid portal vein and at the entrance to the liver. The Doppler wave pattern and color results prove the hepatopedal flow. The Doppler pattern does not indicate increased or diminished flow. The portal vein diameter is 7 mm which is within normal limits. SUMMARY: No portal vein abnormality is demonstrated.
--- NOTE | 2017-11-25 14:05 | NUTRITION ---
PO intake has improved. Weight has stabilized. Will continue to follow progress.
--- NOTE | 2017-11-25 14:09 | PDOC.CMPRO ---
Date of Service: 11/25/17 Time of Service: 14:09 Care Management Progress Note S/O: Clovis is sitting up in his chair this morning. He continues on IV antibiotics at this time. Per morning meeting Clovis will have an Echo today and MD will contact ID to discuss timeline and course of antibiotics. Plan of care has been reviewed and remains unchanged at this time. A: 72 y/o male admitted 11/14/17 for dehydration, fever, Colitis. P: Clovis will return home with no services. He will f/u with PCP and plan of care as prescribed. Clovis's [facility] will transport when ready.
[2017-11-25] MEDS: Normal Saline 500 ML 100 ML IV (15:25)
[2017-11-25] MEDS: Enoxaparin 40 MG/0.4 ML SYR SC (15:28)
--- NOTE | 2017-11-25 21:12 | PGE_ITS ---
DATE OF SERVICE: November 25, 2017 ASSESSMENT AND PLAN: #1. Sepsis. Appears to be resolved. #2. Bacteremia. Evidence of multi-organism bacteremia, appears to be GI pathogens in the setting of acute diverticulitis. Blood cultures showing growth of a fluoroquinolone-resistant E. coli, Pseudom onas, Bacteroides fragilis, and a gram-positive volodymyr assumed to be Clostridium not yet speciated. Con sideration was given for a potential septic thrombus of the portal vein with concurrent elevated LFTs and prolonged rigors and fevers. However, liberal ultrasound today excludes this possibility. For now will continue with antibiotic therapy for a planned 14-day total course of antibiotics, today delvsi ng day #10 with Zosyn and day #4 with metronidazole. Of note, the patient did not become afebrile un til metronidazole was added to the regimen. Repeat blood cultures have remained negative. Plan on d iscussion with ID regarding potential oral regimen to replace Zosyn potentially with a combination of cefpodoxime and fluoroquinolone therapy. #3. Elevated LFTs. Mildly elevated LFTs improved today. No evidence of abscess formation or seedin g by liver ultrasound, and no evidence of a portal vein thrombus by liver ultrasound today. May be s rosio effect of Zosyn use. Regardless, the patient's LFTs appear to be improved today. Continue to mo nitor. #4. Diabetes. Continue current management of long-acting insulin, sliding scale coverage, and ADA d iet. Metformin continues to be on hold. #5. Hypertension. Continue LA inhibitor and beta sascha therapy. #6. Elevated troponin. Mild elevation in troponin in the setting of sepsis likely represents demand ischemia, especially given that EKG was nonischemic. However, as the patient has a history of hyper tension, diabetes, and dyslipidemia, he may benefit from outpatient workup for underlying CAD. Of no te, the possibility for PE was also entertained but CT scan at time of admission showed no evidence. #7. Prophylaxis. Continue subcutaneous Lovenox, PPI therapy. #8. Code status - FULL CODE. #9. Disposition. For likely discharge tomorrow. SUBJECTIVE: A 72-year-old man with a past medical history significant for diabetes, hypertension, an d high cholesterol admitted from the [facility] Emergency Department on November 14 with complaints of fevers and rigors for two days, and evidence of bacteremia by blood cultures. Mr. Westbrook had had a history of two days of fevers and chills at home, described as intense rigors vivienne t were witnessed in the hospital, as well as overall malaise and diarrhea with some vomiting. On pre sentation he was noted to be pale and tachycardic and acutely ill appearing, with a CT of the abdomen and pelvis showing signs of sigmoid diverticulitis. The remainder of his infectious workup was nega tive. Shortly after admission his blood cultures grew gram-negative rods as well as gram-positive ro ds, now speciated to E. coli, Pseudomonas, as well as Bacteroides fragilis. He is now on day #10 of IV piperacillin/tazobactam and day #4 of metronidazole, and has remained afebrile now for the last fo ur days. No overnight events were reported. The patient is continuing to feel vastly improved witho ut any further rigors. He also remains afebrile. PHYSICAL EXAM: General: The patient appears quite comfortable sitting out of bed in chair. No acute distress noted . Vitals: Temperature 36.4 and afebrile with the last fever being 38.1 on November 21. Blood pressure 150/71. Heart rate 58. Pulse oximetry 98% on room air. Neck: Supple. CV: Regular, no rubs, murmurs, or gallops appreciated. Pulm: Clear to auscultation bilaterally, without crackles, rhonchi, or wheezing. Abdomen: Bowel sounds present. Soft, nontender, nondistended. Vascular: No lower extremity edema. LABS: Basic metabolic panel normal with the exception of a glucose of 136. Improving overall LFTs w ith an AST of 43, down from 70 yesterday; ALT of 103, down from 168 yesterday; alkaline phosphatase o f 213, down from 286 yesterday. CRP also improved to 2.27, down from 4.89 two days ago, and 8.81 at time of admission. White blood count continues to be normal with a normal differential. Hemoglobin stable at 11.7. Salomon telet count of 386,000. Blood cultures from 11/22/17 remain without growth for 48 hours. Blood cultures from 11/18/17 with no growth x120 hours. Blood cultures from 11/14/17 showing growth of Pseudomonas aeruginosa, Bacteroides fragilis, as well a s a gram-positive volodymyr with possible Clostridium species, still awaiting speciation, and E. coli resis tant to fluoroquinolone therapy. STUDIES: #1. Repeat liver ultrasound with no portal vein abnormality demonstrated. #2. Echocardiogram: LVEF of 60-65%. Normal wall motion. Right ventricular size and systolic funct ion normal. No evidence of vegetation by discussion with Cardiology.
[2017-11-25] MEDS: Pravastatin 20 MG TAB PO (21:56)
[2017-11-25] MEDS: Insulin Glargine 300 UNITS/3 ML PEN 10 UNITS SC (22:25)
[2017-11-26 03:31] VITALS: BP 143/83; PULSE 62; RESP 19; TEMP 35.8; O2SAT 97
[2017-11-26] MEDS: Normal Saline Flush 10 ML SYR IVP ×2 (03:31→09:37)
[2017-11-26] MEDS: MetroNIDAZOLE 500 MG/100 ML BAG 100 MG IVPB ×2 (04:16→09:37)
[2017-11-26] MEDS: Acetaminophen 325 MG TAB 650 MG PO (06:19)
[2017-11-26 07:07] LABS: Abs Immature Grans 0.01 k/cumm (0.0-0.09); Absolute Basophil Count 0.09 k/cumm (0.0-0.2); Absolute Lymphocyte Count 1.92 k/cumm (1.2-3.4); Absolute Monocyte Count 0.58 k/cumm (0.11-0.7); Absolute Neutrophil Count 2.25 k/cumm (1.2-6.7); Basophils % 1.7; Eosinophils % 5.8; HCT 36.5 % (40.0-50.0); HGB 11.9 g/dL (13.5-17.5); Immature Grans % 0.2; Lymphocytes % 37.3; Mean Corp. HGB Concentration 32.6 g/dL (32.0-36.0); Mean Corpuscular Hemoglobin 29.3 pg (27.0-33.0); Mean Corpuscular Volume 89.9 fL (80-95); Mean Platelet Volume 10.2 fL (8.0-11.0); Monocytes % 11.3; Neutrophils % 43.7; Platelet Count 412 x1000/uL (130-400); RBC 4.06 m/cumm (4.50-6.00); RBC Distribution Width 16.5 % (11.8-14.1); White Blood Cell Count 5.15 k/cumm (4.4-10.8)
[2017-11-26 07:10] VITALS: O2SAT 97
[2017-11-26 07:17] LABS: ALT 86 U/L (12-78); AST 36 U/L (15-37); Albumin 2.7 g/dL (3.4-5.0); Alkaline Phosphatase 187 U/L (46-116); Anion Gap 10.2 mmol/L (3-11); BUN 11 mg/dL (7-18); Bilirubin, Direct 0.34 mg/dL (0.00-0.20); Bilirubin, Total 0.7 mg/dL (0.2-1.0); CO2 25.8 mmol/L (21.0-32.0); CREATININE 1.16 mg/dL (0.70-1.30); Calcium 8.6 mg/dL (8.5-10.1); Chloride 105 mmol/L (98-107); Glucose 136 mg/dL (70-100); Potassium 4.1 mmol/L (3.5-5.1); Sodium 141 mmol/L (136-145); Total Protein 7.4 g/dL (6.4-8.2)
[2017-11-26 07:45] VITALS: BP 132/69; PULSE 60; RESP 19; TEMP 36.1; O2SAT 97
[2017-11-26] MEDS: Insulin Aspart 300 UNITS/3 ML PEN SC ×2 (08:22→12:33)
[2017-11-26] MEDS: Lactobacillus Acidophilus CAP 1 CAP PO (08:23)
[2017-11-26] MEDS: Lisinopril 5 MG TAB PO (08:23)
[2017-11-26] MEDS: Vitamins B Comp w/C TAB 1 TAB PO (08:24)
[2017-11-26] MEDS: Ascorbic Acid 500 MG TAB 125 MG PO (08:24)
[2017-11-26] MEDS: Aspirin 81 MG CHEW PO (08:25)
[2017-11-26] MEDS: Metoprolol CR 25 MG TABCR PO (08:25)
--- NOTE | 2017-11-26 09:56 | PDOC.CMDIS ---
Date of Service: 11/26/17 Time of Service: 09:56 LACE Index Scoring Tool - Questions: Length of Stay (in days): 7 - 13 Acuity (Admit via E.D.?): Yes Comorbidities: Diabetes w/o Complication E.D. Visits: 1 - Answers: Total Score: 10 Risk of Readmission: High Risk Care Management Discharge Reason for Hospitalization: Diverticulitis, Dehydration Discharge Plan: Clovis will return home today with no services. He will F/U with PCP and plan of care as prescribed. Clovis's Liyah will transport him home today. Patient/Family Education Needs: Review DC instructions, any limitations, and discuss Ask Me Three
--- NOTE | 2017-11-26 11:09 | DISCHARGE ---
Discharge - Discharge Orders Referrals: Shyam Harvey [Primary Care Provider] - 11/27/17 9:40 am Mckay Orr DO [ [facility] STAFF PHYSICIAN] - 12/07/17 3:30 pm Other Amb Orders: Comprehensive Metabolic Panel [LAB] Time Frame: 3 Days, Location: Determined By Patient Nuclear Medicine Stress Test (Outpt) Location: Determined By Patient - Discharge Plan Disposition: HOME Condition: Improving Diet:: Carb Counting, Heart Healthy Equipment/Supplies:: No Equipment Needed Activity:: No Strenuous Activity - Instructions Additional Instructions: Please complete your antibiotics (4 days of cipro and cefpodoxime, 7 more days of flagyl). Do not consume alcohol while on flagyl. You are on 2 new medications for your heart (Lisinopril and metoprolol). You have a stress test scheduled as an outpatient. Please follow-up with Dr. Orr for a repeat colonoscopy over the next couple of months.
[2017-11-26 11:25] VITALS: BP 141/75; PULSE 61; RESP 20; TEMP 36.1; O2SAT 98
--- NOTE | 2017-11-26 14:55 | DSE_ITS ---
DATE OF ADMISSION November 14, 2017 DATE OF DISCHARGE November 26, 2017 PRIMARY CARE PROVIDER Shyam Harvey M.D. DISCHARGING PHYSICIAN Lyle Vela M.D. DISCHARGE DIAGNOSES 1. Acute diverticulitis. 2. Sepsis. 3. Multi-organism bacteremia. 4. Elevated LFTs. 5. Elevated troponin. 6. Right-sided heart failure. CHIEF COMPLAINT Fevers, rigors. HISTORY OF PRESENT ILLNESS A very pleasant 72-year-old man with a past medical history significant for diabetes, hypertension, h igh cholesterol, presented to [facility] Emergency Department on November 14, with complaints of fevers and rig ors for two days. Mr. Westbrook reports onset of GI symptoms approximately two days prior, with diarrhea and nausea accompa nied by some vomiting. He also described concurrent fevers and chills at home, specifically rather in tense rigors. He also stated overall malaise during this course. Upon presentation to the Emergency Department, he was noted to be pale and tachycardic, as well as ac utely ill appearing. CT abdomen and pelvis showed signs of sigmoid diverticulitis, with the remainder of his infectious wo rkup being negative. Mr. Westbrook was referred for admission for further evaluation and treatment. PAST MEDICAL HISTORY 1. Diabetes. 2. Dyslipidemia. 3. Diverticulosis. 4. History of peptic ulcer disease. 5. Hypertension. 6. Obesity. PAST SURGICAL HISTORY 1. Left shoulder arthroscopic surgery in 2001. 2. Bilateral inguinal hernia repair. 3. Tonsillectomy and adenoidectomy. ALLERGIES 1. Diclofenac - Dizziness. 2. Amlodipine. 3. Venlafaxine. 4. Statins with myalgias. DISCHARGE MEDICATIONS 1. Tylenol 500 mg t.i.d. p.r.n. 2. Naproxen 220 mg b.i.d. p.r.n. 3. Vitamin B complex. 4. Saw palmetto. 5. Schisandra. 6. Coricidin. 7. Vitamin C. 8. Bee pollen. 9. Lactobacillus. 10. Omeprazole 20 mg daily tablet once daily. 11. Vitamin D3 1000 units b.i.d. 12. Flax seed/omega 3/fatty acids. 13. Metformin 1000 mg b.i.d. 14. Pravastatin 20 mg daily. 15. Cefpodoxime 200 mg b.i.d. x4 days. 16. Ciprofloxacin 500 mg b.i.d. x4 days. 17. Metronidazole 500 mg q. 8 times seven days. 18. Lisinopril 5 mg daily. 19. Metoprolol CR 25 mg daily. 20. Aspirin 81 mg daily. LABORATORY STUDIES Normal sodium, potassium, bicarb, chloride, BUN and creatinine. Blood sugar 136. LFTs with an AST that has normalized from a peak of 70, ALT of 86 down from a peak of 168 three days ago. Alkaline priti sphatase of 187, down from a peak of 286 three days ago. CRP initially 8.81, down to 2.27 on 11/25/2017. CBC with a normal white blood count. Normal differential. Platelet count mildly elevated at 412. Hem oglobin stable at 11.9. ESR elevated at 97 on 11/25/2017, down from a value of 106 on 11/21/2017. Lipase initially checked and normal at time of admission, B12 levels normal at 735, TSH normal at 2.8 6. Troponin with a mild elevation, peaked at 0.78 on 11/15/2017 prior to down trending and becoming peter l at 0.05 on 11/18/2017. URINALYSIS - Urinalysis negative for leukocyte esterase, nitrite, blood, with 5 to 10 White blood jovanna ls per high-powered field and 0 to 2 red blood cells. Microbiology - Original blood cultures positive x4 sets, full list of pathogens included a fluoroquin olone-resistant E-coli, Pseudomonas, Bacteroides Fragilis and an anaerobic Gram-positive volodymyr. At one point presumed that the patient had a possible clostridium infection. STUDIES 1. Chest x-ray- Performed 11/14/2017 - Limited exam, question left lower lobe densities. 2. CT of the chest, abdomen and pelvis, with IV contrast 11/14/2017 - Negative chest CT. No evidence of PE or other acute abnormalities. There is bibasilar posterior atelectasis. Mild sigmoid diverticu litis. 3. Repeat chest x-ray 11/15/2017 - Mildly increased densities of the left lung base, which could repr esent scarring, atelectasis or infiltrate. 4. Echocardiogram 11/16/2017 - LV ejection fraction 60 to 65%. Normal diastolic parameters, RV systol ic function moderately reduced with a mildly dilated cavity size. No PFO. Moderate TR. Pulmonary maurice rial pressures in the 30 to 40 mmHg range. 5. Abdominal CT 11/19/2017, some improvement in sigmoid diverticulitis. No new abnormality or abscess seen. 6. Chest x-ray - Repeat 11/22/2017 - No acute pulmonary process. 7. Tagged white blood cell scan - Normal WBC scan. 8. Abdominal ultrasound 11/24/2017 - Hepatic steatosis, hepatosplenomegaly, bilateral renal cysts. 9. Repeat Echocardiogram 11/25/2017 - LVEF 60 to 65%, wall motion normal. No wall motion abnormalities. RV with normal size and systolic function. 10) Liver US - 11/25/2017 - no portal vein abnormality demonstrated. 11) EKG - date 11/14/2017 - normal sinus rhythm, normal axis. Q-wave limited to lead III. Good R-wav e progression. No ischemic changes or ST segment abnormalities noted. 12) EKG - date 11/15/2017 - normal sinus rhythm, borderline bradycardic at a heart rate of 60, normal axis. Previously noted Q-waves in lead III are actually nonpathologic appearing and do not appear t o be true Q-waves. Good R-wave progression. No ST segment abnormalities. No ischemic changes. ASSESSMENT/PLAN: 1) Sepsis. Mr. Westbrook was originally noted to be septic, with likely source bein g acute sigmoid diverticulitis. Sepsis resolved. For details, please see below. 2) Bacteremia. Evidence of multi-organism bacteremia, appear to be gastrointestinal pathogens in the setting of acute diverticulitis. Blood cultures showed growth of a fluoroquinolone-resistant E-Col i, Pseudomonas aeruginosa, Bacteroides fragilis, and a gram positive volodymyr, assumed to be Clostridium, not yet speciated. Mr. Westbrook was fairly ill-appearing, and initially had fairly significant rigors with temperatures vivienne t were as high as 40.9. The patient was initiated on broad-spectrum antibiotics with Piperacillin/T azobactam, but, despite treatment, continued to spike fevers until 11/21/2017, with his last fever bein g a temperature of 38.1 at approximately 9:30 PM on the 21 of November. At that time, Metronidazole was added to his regimen and he became afebrile. Consideration was given for potential endocarditis and two separate echocardiograms did not show any evidence of vegetation (however note that they were both transthoracic echocardiograms as per Cardiol ogy request). Repeat CT showed improvement in sigmoid diverticulitis, no evidence of abscess formati on and a repeat CXR showed resolution of a previous potential infiltrate vs atelectasis. Multiple re peat blood cultures also remained negative. At that time, discussion was had with ID and, per their recommendations, and given concurrent elevate d liver function tests, liver US was obtained showing no evidence of septic thrombus in the portal ve in. Mr. Westbrook has now been afebrile for 5 days and feeling very well. His Zosyn is being transitioned to a combination of Cefpodoxime and Ciprofloxacin for coverage of E-Coli, although for the E-Coli which is fluoroquinolone resistant, the pseudomonas and the Bacteroides fragilis, he will also be continue d on Flagyl for 7 additional days for the potential Clostridium. Again, please note that although t he patient was on Zosyn, he did not become afebrile until Flagyl was added. This was discussed in de tail with ID and the antibiotic regimen is a result of this discussion. The patient was instructed to complete his course of antibiotic therapy. Given the significant bacteremia and the acute diverticulitis, Mr. Westbrook is also scheduled to see Dr. Orr for a potential repeat colonoscopy somewhere in the near future. He notes that his last colo noscopy was approximately 8 years ago. 3) Elevated liver function tests - mild elevation in liver function tests that continue to improve to day with AST actually normalizing. No evidence of abscess formation or seeding by liver US. No evid ence of portal vein thrombus by repeat liver US. May have been a side effect of Piperacillin/Tazobac cortez use. Regardless the patient's liver function tests appear to be improved and normalizing. Avery jon continue to monitor and repeat outpatient liver function tests in 3 days. 4) Diabetes. Mr. Westbrook had some elevated blood sugars but nothing greater than in the 200's. At so me point during his hospital course, he was initiated on long-acting insulin as well as maintained on a sliding scale. He was on 10 U of insulin Glargine, with his Metformin on hold as he was hospitali zed. He is being discharged without any further insulin use and recommendation for resumption of hi s Metformin. Close blood sugar follow-up is recommended as an outpatient. This was discussed with the patient in detail. 5) Elevated troponin. Mild elevation in troponins in a setting of sepsis which likely represents dem and ischemia, especially given that the patient's EKG was nonischemic and his echocardiogram did not appear to show any left ventricular dysfunction or wall motion abnormalities. However, the patient h as a history of hypertension, diabetes and dyslipidemia, he will benefit from outpatient work-up for underlying coronary artery disease. Nuclear stress test has been scheduled for him. Of note, given concurrent appearance of mild right ventricular dysfunction (which has since resolved) as well as mi ld elevation in troponin, consideration was given for an acute pulmonary embolus, ruled out with init ial CT angiogram of the chest. The patient's elevated (Dictation Anomaly) troponin was initially treated conservatively with IV Hepa rin drip for approximately 48 hours. The patient was maintained on statin therapy which he took at h ome, with the addition of daily aspirin, low-dose Beta blockers and low-dose LA inhibitor. He is b eing discharged on this regimen as well. 6) Right ventricular dysfunction - initial echocardiogram with evidence of moderate right ventricular systolic dysfunction and pulmonary hypertension, not reproduced by repeat echocardiogram. In fact, echocardiogram dose obtained on 11/25/2017 indicates a normal cavity size, wall thickness and systolic function of the right ventricle as well as the left ventricle. This may have been in the setting of acute illness. 7) CODE STATUS. The patient was maintained as a FULL CODE. 8) Disposition. For discharge today in stable and vastly improved condition. Now afebrile for appr oximately 5 days with recommendations for continuation of his antibiotic therapy with Cefpodoxime and Ciprofloxacin for 4 additional days, Flagyl for 7 days. Mr. Westbrook has an appointment to see his primary care provider tomorrow morning, and is being schedule d to follow-up with Dr. Orr for discussion on a repeat colonoscopy sometime in the near future, gi marge his acute diverticulitis as well as significant multi-organism bacteremia. Outpatient stress te st was also scheduled. Repeat liver function tests are scheduled as stated above for 3 days from no w. Greater than 60 minutes were spent on coordination of today's discharge.
== END 2017-11-26 12:43 | disposition home or self-care (01) | DRG 871 ==
PROVIDERS: Family Medicine; General Practice; Internal Medicine; Nurse Practitioner Family; Physician Assistant; Admitting Provider Family Medicine; Emergency Provider Student in an Organized Health Care Education/Training Program; PCP Family Medicine; Visit Provider Internal Medicine
DX: A41.51 Sepsis due to Escherichia coli [E. coli] (principal); I21.A1 Myocardial infarction type 2; K57.32 Diverticulitis of large intestine without perforation or abscess without bleeding; N17.9 Acute kidney failure, unspecified; J90 Pleural effusion, not elsewhere classified; A41.52 Sepsis due to Pseudomonas; A41.89 Other specified sepsis; Z16.23 Resistance to quinolones and fluoroquinolones; R94.5 Abnormal results of liver function studies; I11.0 Hypertensive heart disease with heart failure; I50.811 Acute right heart failure; I27.20 Pulmonary hypertension, unspecified; Z20.828 Contact with and (suspected) exposure to other viral communicable diseases; R09.02 Hypoxemia; E66.9 Obesity, unspecified; E11.9 Type 2 diabetes mellitus without complications; Z79.84 Long term (current) use of oral hypoglycemic drugs; E78.4 Other hyperlipidemia
CPT/HCPCS: 36410; 36415; 71275; 74177; 80048; 80053; 80076; 83690; 85652; 87040; 87076; 87077; 87181; 87505; 93005; 96361; 96365; 96375; 99285; J1650; 71045; 71046; 76700; 76705; 78805; 81003; 81015; 83605; 83630; 83735; 84443; 84484; 85025; 85379; 85610; 85730; 86140; 87086; 87186; 87324; 93010; 93306; 99223; 99232; 99233; 99239; J0131; J0456; J0744; J1644; J1885; J2543; J3010; J3480; J3490

== ENCOUNTER → 2017-11-29 06:06 | Outpatient (CLI) | payer OTHER, SELFPAY ==
[2017-11-29 09:59] LABS: Hemoglobin A1C 7.1 % (4.5-6.2)
[2017-11-29 10:04] LABS: ALT 66 U/L (12-78); AST 41 U/L (15-37); Albumin 3.1 g/dL (3.4-5.0); Alkaline Phosphatase 133 U/L (46-116); Anion Gap 10.6 mmol/L (3-11); BUN 14 mg/dL (7-18); Bilirubin, Total 0.7 mg/dL (0.2-1.0); CO2 24.4 mmol/L (21.0-32.0); Calcium 8.6 mg/dL (8.5-10.1); Chloride 105 mmol/L (98-107); Cholesterol 174 mg/dL (50-200); Estimated GFR 59.68 (mL/min/1.73m2); Glucose 150 mg/dL (70-100); HDL Cholesterol 27 mg/dL (40-60); LDL CHOLESTEROL 124 mg/dL (<100); Potassium 4.2 mmol/L (3.5-5.1); Sodium 140 mmol/L (136-145); Total Protein 7.6 g/dL (6.4-8.2); Triglyceride 129 mg/dL (30-150)
== END ==
PROVIDERS: PCP Family Medicine; Visit Provider Internal Medicine
DX: E78.5 Hyperlipidemia, unspecified (principal); E11.9 Type 2 diabetes mellitus without complications
CPT/HCPCS: 36415; 80053; 80061; 83721; 83036

== ENCOUNTER 2017-12-23 00:18 | Outpatient (CLI) | payer OTHER, SELFPAY ==
--- NOTE | 2017-12-23 08:45 | MERGEMPI_ITS ---
*[facility]* *[facility]* [address] [place] [address] Myocardial Perfusion Imaging - SPECT Heraclio protocol Date of study: 12/23/2017 *PATIENT PRESENTATION* Height: 177.8cm (70in) Blood Pressure: Weight: 92.7kg (204lb) BSA: 2.16m^2 Referring physician: Roro Krishnamurthy Ordering physician: Lyle Vela Impressions: Abnormal study after pharmacologic stress. Summary: 1. Myocardial perfusion imaging: No myocardial perfusion defects noted. 2. The calculated left ventricular ejection fraction after stress: 42%. LV global systolic function is mild to moderately reduced. Diffuse left ventricular regional motion abnormalities. 3. Stress ECG conclusions: The stress ECG is negative to less than 85% MPHR. The stress ECG is non-diagnostic. The sensitivity of this test is limited by a failure to achieve target heart rate. Occasional ventricular ectopy. 4. Stress: The target heart rate was not achieved. There is a normal resting blood pressure with an appropriate response to stress. The patient experienced no chest pain during stress. Exercise capacity is mildly diminished for age. Indication: R07.9. History: REASON FOR VISIT: PATIENT WITH RECENT HOSPITALIZATION FOR COMPLAINTS OF FEVERS AND RIGORS, DISCHARGED 11/26/17 FOLLOWING WORKUP FOR SEPSIS LIKELY DUE TO ACUTE SIGMOID DIVERTICULITIS. DURING ADMISSION, TROPONINS FOUND TO BE MILDLY ELEVATED WITH NEGATIVE EKG AND ECHOCARDIOGRAM. HOSPITALIST ORDERED OUTPATIENT STRESS TEST TO RULE OUT CORONARY ARTERY DISEASE DUE TO PATIENT RISK FACTORS. INPATIENT ECHOCARDIOGRAM: EF 60-60%. RV SYSTOLIC FUNCTION MODERATELY REDUCED WITH A MILDLY DILATED CAVITY SIZE. PAST MEDICAL HISTORY: DIABETES, DYSLIPIDEMIA, DIVERTICULOSIS, PEPTIC ULCER DISEASE, HYPERTENSION, OBESITY. FAMILY HISTORY: FATHER - CORONARY THROMBOSIS. SMOKING STATUS: 50 PACK YEAR SMOKING HISTORY, QUIT IN 1999 (18 YEARS AGO). EXERCISE ROUTINE: NONE. Risk factors: Cholesterol: 174mg/dl. HDL: 27mg/dl. LDL: 124mg/dl. Triglycerides: 129mg/dl. ALLERGIES: DICLOFENAC, AMLODIPINE, VENLAFAXINE, STATINS WITH MYALGIAS. MEDICATIONS: ACETAMINOPHEN 500MG, PRN. ASCORBIC ACID 125MG, DAILY. ASPRININ 81MG, DAILY. BEE POLLEN 550MG, BID. BILBERRY FRUIT EXTRACT 80MG, DAILY. CHOLECALCIFEROL 1000UNITS, BID. CHROMIUM PICOLINATE 200MCG, DAILY. COQ10 1000MG, DAILY. FLAXSEED-OMEGA3,6,9 - FATTY ACID, DAILY. LACTOBACILLUS ACIDOPHILUS, DAILY. LISINOPRIL 5MG, DAIILY. METFORMIN 1000MG BID. METOPROLOL SUCCINATE 25MG, DAILY. NAPROXEN SODIUM 220MG, PRN. OMEGA-3FATTY ACIDS, BID. OMEPRAZOLE 20MG EVERY 3 DAYS, PRAVASTATIN 20MG, DAILY. QUERCETIN, DAILY. SAW PALMETTO FRUIT 450MG, DAILY. SCHISANDRA 500MG, PRN. VITAMIN B COMPLEX, DAILY. Imaging Technique: Protocol: Heraclio protocol. Acquisition: Gated SPECT; 1 day - rest/stress. The patient was imaged in the supine position. Attenuation correction used. Isotope administration: - Rest. Tc[99m]-sestamibi. Dose: 9.5mCi. Injection time: 10:15 AM. Injection to stress time: 00:45. - Stress. Tc[99m]-sestamibi. Dose: 31.5mCi. Injection time: 12:55 PM. 1-2 min before end of exercise Baseline ECG: SINUS BRADYCARDIA. HEART RATE 58 BPM. Stress protocol: + +---+ + + + !Stage !HR !BP (mmHg) !Symptoms !Comments ! + +---+ + + + !Baseline supine !58 !128/68 (88)! ! ! + +---+ + + + !Baseline standing !63 !114/64 (81)! ! ! + +---+ + + + !Stage I; 1.7mph, !82 !162/72 ! ! ! !10degrees; 3 min ! !(102) ! ! ! + +---+ + + + !Stage II; 2.5mph, !110!180/78 ! ! ! !12degrees; 3 min ! !(112) ! ! ! + +---+ + + + !Peak stress !114! ! ! ! + +---+ + + + !Recovery; 1 min !84 !204/84 ! ! ! ! ! !(124) ! ! ! + +---+ + + + !1 min !94 !178/68 !Moderate dyspnea!Inject ! ! ! !(105) ! !Regadenoson. ! + +---+ + + + !3 min !89 !190/88 ! ! ! ! ! !(122) ! ! ! + +---+ + + + !4 min !---! !Resolved ! ! + +---+ + + + !6 min !79 !148/68 (95)! ! ! + +---+ + + + * Stress results: Maximal heart rate during stress was 114bpm (77% of maximal predicted heart rate). The maximal predicted heart rate was 149bpm. The target heart rate was not achieved. There is a normal resting blood pressure with an appropriate response to stress. The rate-pressure product for the peak heart rate and blood pressure was 28050zv Hg/min. The patient experienced no chest pain during stress. Exercise capacity is mildly diminished for age. Stress ECG: TREADMILL PORTION OF EXERCISE STRESS TEST ENDED IN 6MIN 20SEC DUE TO PATIENT DYSPNEA AND LEG WEAKNESS. HYPOTENSIVE BLOOD PRESSURE RESPONSE TO EXERCISE. HYPERTENSIVE RESPONSE TO START OF EXERCISE. APPROPRIATE HEART RATE RESPONSE TO EXERCISE. MAXIMAL HEART RATE ACHIEVED 114 BPM, 76% OF TARGET. APPROXIMATE METS ACHIEVED 8.07. NO ANGINA REPORTED. OCCASIONAL PVC NOTED DURING EXERCISE. NO SIGNIFICANT ST SEGMENT CHANGES NOTED. MILDLY DIMINISHED FUNCTIONAL CAPACITY. LEXISCAN STRESS TEST ENDED IN 6MIN WHEN ALL SYMPTOMS OF REGADENOSON INJECTION SUBSIDED. APPROPRIATE HEART RATE AND BLODOD PRESSURE RESPONSE TO REGADENOSON INJECTION. NO ECTOPY NOTED. NO ANGINA REPORTED. The stress ECG is negative to less than 85% MPHR. The stress ECG is non-diagnostic. The sensitivity of this test is limited by a failure to achieve target heart rate. Occasional ventricular ectopy. Myocardial perfusion: Imaging information: gated. Left ventricular size is normal. Right ventricular size is normal. No myocardial perfusion defects noted. Ventricular Function (Wall Motion): The calculated left ventricular ejection fraction after stress: 42%. LV global systolic function is mild to moderately reduced. Diffuse left ventricular regional motion abnormalities. Right ventricular function is normal. Study data: Roro Krishnamurthy MD supervised and was readily available during the procedure. This study was interpreted by [facility]. Study status: Routine. Consent: The risks, benefits, and alternatives to the procedure were explained to the patient and informed consent was obtained. Procedure: Initial setup. A baseline ECG was recorded. Surface ECG leads and manual cuff blood pressure measurements were monitored. Heart sounds: Normal. Lung sounds: Normal. Treadmill exercise testing was performed using the Heraclio protocol. Study completion: All catheters inserted during the procedure were removed. The patient tolerated the procedure well and was discharged from the lab. Discharge: The patient left the laboratory in stable condition. Birthdate: Patient birthdate: 1945. Sex: Gender: male. Study date: Study date: 12/23/2017. Study time: 12:30 PM. Signature Documentation: - The imaging portion of this study was interpreted by [employer] Roro Krishnamurthy MD. - The Stress ECG portion of this study was interpreted by Roro Krishnamurthy MD. Electronically signed by Roro Krishnamurthy 12/23/2017 17:24
[2017-12-23] MEDS: Regadenoson 0.4 MG/5 ML SYR IVP (13:18)
== END 2017-12-23 00:38 ==
PROVIDERS: PCP Family Medicine; Visit Provider Internal Medicine
DX: R94.30 Abnormal result of cardiovascular function study, unspecified (principal); R07.9 Chest pain, unspecified; E11.9 Type 2 diabetes mellitus without complications; E78.5 Hyperlipidemia, unspecified; I10 Essential (primary) hypertension
CPT/HCPCS: 78452; 93017; J2785

== ENCOUNTER 2018-01-15 07:49 | Day surgery (SDC) | payer OTHER, SELFPAY ==
[2018-01-15 08:00] VITALS: BP 145/84; PULSE 65; RESP 16; TEMP 36.6; O2SAT 97
[2018-01-15] MEDS: Lactated Ringers 1,000 ML 30 ML IV (08:30)
--- NOTE | 2018-01-15 09:42 | W.PM.HP.N ---
Date of service: 01/15/18 Time of Service: 09:42 Assessment and Plan (1) Sigmoid diverticulitis: Current visit: No Status: Acute Recommended colonoscopy to confirm the presence of diverticulosis rule out any occult malignancy or other pathology. I reviewed the colonoscopy procedure with Mr. Gutierrez, and discussed the risks of the procedure with him. All his questions were answered to his satisfaction. History of Present Illness Chief Complaint: History of Diverticulitis Narrative: 72 y/o male referred for colonoscopy after hospitalization for diverticulitis with sepsis. He has recovered from this. His last colonscopy was over 5 years ago. He did have polyps found on the last colonoscopy. He has no family history of colorectal cancer Review of Systems Review of Systems Constitutional: Denies fever, chills, malaise, fatigue, weight loss, sweating; Neurological: denies headache, seizures, syncope; weakness Eyes: denies loss of vision, double vision, blurry vision, wears corrective lenses; Ears,nose, throat: denies loss of hearing, tinnitus, vertigo, epistaxis, hoarseness, throat swelling. Cardiac: denies chest pain with exertion, palpation, pain shooting from chest into arm. Respiratory: denies cough, sputum production, chest congestion, wheezing. Gastrointestinal: denies abdominal pain, dysphagia, nausea, vomiting, hematamesis, hematochezia, melena. Genitourinary: denies frequency, urgency, hesitancy, incontinence, and dysuria. Musculoskeletal: denies arthralgia, myalgia, fracture, joint pain, joint swelling, back pain. Psychiatric: denies anxiety, depression, difficulty concentrating, difficulty sleeping, irritability. PFSH Family History Mother No problems noted. Father Alzheimer disease Heart disease Leukemia Myocardial infarction Sister No problems noted. Grandfather Heart disease Myocardial infarction Grandfather No problems noted. Grandmother No problems noted. Grandmother No problems noted. Daughter Substance abuse Diabetes Essential hypertension Depression Daughter No problems noted. Medical History Diabetes type 2, controlled Essential hypertension GERD (gastroesophageal reflux disease) History of diverticulosis Hyperlipidemia Obesity (BMI 30-39.9) Social History Smoking/Tobacco Use Status: Former Tobacco Use Surgical History Arthroscopy, Shoulder (~2001) Repair of inguinal hernia Tonsillectomy and adenoidectomy Meds Home Medications Medication Instructions Recorded Confirmed Type acetaminophen [Tylenol Extra 500 mg PO TID PRN 08/04/12 01/12/18 History Strength] blood sugar diagnostic [FreeStyle strip 08/04/12 01/06/18 History Test] naproxen sodium [Aleve] 220 mg PO BID PRN 08/04/12 01/12/18 History Schisandra 500 mg PO PRN #90 tab-cap 04/22/13 01/12/18 Clinic Vitamin B Complex 1 tab-cap PO DAILY #90 tab-cap 04/22/13 01/12/18 Clinic saw palmetto fruit 450 mg PO DAILY #90 tab-cap 04/22/13 01/12/18 History Lactobacillus acidophilus 1 ea PO DAILY #90 tab-cap 04/27/15 01/12/18 History [Probiotic] Quercetin 1 cap PO DAILY #90 tab-cap 04/27/15 01/12/18 Clinic ascorbic acid (vitamin C) [Vitamin 125 mg PO DAILY #90 tab.chew 04/27/15 01/12/18 History C] bee pollen 550 mg PO BID #180 tab-cap 04/27/15 01/12/18 History omeprazole 20 mg PO PRN PRN #33 tab-cap 08/24/15 01/12/18 History cholecalciferol (vitamin D3) 1,000 unit PO BID 05/11/17 01/12/18 History flaxseed-omega3,6,9-fatty acid 1 ea PO DAILY 05/11/17 01/12/18 History metformin 1,000 mg PO BID 90 Days #360 08/10/17 01/12/18 Rx tab-cap pravastatin 20 mg PO DAILY #90 tab-cap 08/10/17 01/12/18 Rx bilberry fruit extract 80 mg PO DAILY 12/16/17 01/12/18 History chromium picolinate 200 mcg PO DAILY 12/16/17 01/12/18 History coQ10 (ubiquinol) 1,000 mg PO DAILY 12/16/17 01/12/18 History omega-3 fatty acids-fish oil [Fish 1 ea PO BID 12/16/17 01/12/18 History Oil 1,000 Mg Capsule] berberine-herbal comb no.18 capsule cap PO DAILY cap 01/06/18 01/06/18 History magnesium oxide-magnesium amino cap PO DAILY cap 01/07/18 01/07/18 History acid chelate 300 mg capsule aspirin [Aspir-81] 81 mg PO DAILY 01/12/18 01/12/18 History Allergies Allergy/AdvReac Type Severity Reaction Status Date / Time diclofenac [Diclofenac] AdvReac Intermediate DIZZY/LIGHT Verified 01/06/18 11:52 HEADED amlodipine AdvReac Mild PEDAL EDEMA Verified 01/06/18 11:52 venlafaxine AdvReac Unknown Verified 01/06/18 11:52 Exam Narrative Exam Narrative: General: Awake, alert, oriented x 3, well groomed Neurological: cranial nerves II-12 grossly intact, moves all extremities, no focal deficits. HEENT: Normacephalic, atruamatic, pupils are equal, round, and reactive to light, extraocular muscles intact, mucousa moist and pink. Neck: normal visual inspection, supple, trachea midline. Heart: regular rate, rhythm Respiratory: No wheezing, cough, sputum production, or chest congestion. breathing unlabored. Abdomen: Soft, non-tender, non-distended, no hernias. Extremities: no cyanosis, clubbing or edema. Integument: warm, dry, normal turgor, no rashes, or lesion.
--- NOTE | 2018-01-15 09:44 | COLE_ITS ---
Date of service: 01/15/18 Time of Service: 09:44 Colonoscopy Report Date of procedure: 01/15/18 Pre-op diagnosis general: Diverticulitis of the colon Post-op diagnosis procedure note: other (Sigmoid diverticula) Procedure: Colonoscopy to the cecum Surgeon: Mckay Orr Anesthesia proc note operative: MAC (Ilana Ochoa CRNA ASA 2 Mallampati) Estimated blood loss (mL): 0 Pathology: none sent Complications: None Disposition: same day Prep: Miralax/Dulcolax (Prep quality good) Findings: In examining the colon from cecum to anus, the patient was noted to have sigmoid diverticulosis. No other abnormalities were noted. Procedure Description: The patient was seen in the day surgery waiting area. His identification was confirmed, and procedure check. He was then brought to the procedure room. Monitoring for telemetry, blood pressure, oxygen saturation, and end tidal CO2 monitoring were applied. An appropriate time out was performed to confirm, identification, allergies, medication, procedure, was performed. Sedation was titrated for affect by the ERP BUSINESS ANALYST; Once adequate sedation was achieved, I performed a inspection of the external perineum, and a digitial rectal examination. No significant external abnormalities were noted. On digital rectal examination, there was no blood, no masses, good rectal tone, and a normal prostate. I advanced the colonoscope from the anus to the cecum under direct visualization. The cecum was identified by the ileal-cecal valve, and the appendiceal orifice. The scope was then withdrawn in circumferential manner from the cecum to the rectum. The patient was noted to have sigmoid diverticulosis. The scope was then withdrawn into the rectum, and retroflexed. No abnormalities were noted of the rectum or anorectal junction. The scope was then withdrawn, terminating the procedure. There were no complications during the procedure, and the patient tolerated the procedure well. He was returned to the day surgery recovery area in good condition. Plan: No occult pathology identified on colonoscopy. Will continue with routine screening for colorectal cancer according to current consensus guidelines, which is currently 10 years.
--- NOTE | 2018-01-15 09:44 | W.PM.DSUDISC ---
Discharge Plan Disposition Patient Disposition: HOME Condition: Good Discharge Details Reason For Visit: DIVERTICULITIS Attending Provider: Mckay Orr Primary Care Provider: Shyam Harvey Home Meds and New Rx's Prescriptions: Continue berberine-herbal comb no.18 capsule PO DAILY RF: 0 magnesium oxide-Mg AA chelate [Magnesium (oxide/AA chelate)] 300 mg capsule PO DAILY RF: 0 blood sugar diagnostic [FreeStyle Test] 1 EACH strip 1 ea Miscellaneous BID RF: 0 acetaminophen [Tylenol Extra Strength] 500 MG tablet 500 mg PO TID PRN RF: 0 naproxen sodium [Aleve] 220 MG capsule 220 mg PO BID PRN RF: 0 saw palmetto fruit 450 MG capsule 450 mg PO DAILY Qty: 90 RF: 3 SCHISANDRA 500 mg 500 mg PO PRN Qty: 90 RF: 3 VITAMIN B COMPLEX 1 EACH tablet 1 tab-cap PO DAILY Qty: 90 RF: 3 Lactobacillus acidophilus [Probiotic] 1 EACH capsule 1 ea PO DAILY Qty: 90 RF: 3 ascorbic acid (vitamin C) [Vitamin C] 125 MG tablet,chewable 125 mg PO DAILY Qty: 90 RF: 3 bee pollen 550 MG capsule 550 mg PO BID Qty: 180 RF: 3 quercetin 1 cap 1 cap PO DAILY Qty: 90 RF: 3 omeprazole 20 MG capsule,delayed release(DR/EC) 20 mg PO PRN PRNQty: 33 RF: 3 cholecalciferol (vitamin D3) 1,000 UNIT capsule 1,000 unit PO BID RF: 0 flaxseed-omega3,6,9-fatty acid 1 EACH capsule 1 ea PO DAILY RF: 0 metformin 500 MG tablet 1,000 mg PO BID 90 Days Qty: 360 RF: 3 pravastatin 20 MG tablet 20 mg PO DAILY Qty: 90 RF: 3 chromium picolinate 200 MCG tablet 200 mcg PO DAILY RF: 0 omega-3 fatty acids-fish oil [Fish Oil] 1 EACH capsule 1 ea PO BID RF: 0 bilberry fruit extract 80 MG capsule 80 mg PO DAILY RF: 0 coQ10 (ubiquinol) 100 MG capsule 1,000 mg PO DAILY RF: 0 aspirin [Aspir-81] 81 mg Tablet,Delayed Release (Dr/Ec) 81 mg PO DAILY RF: 0 Discharge Instructions Instructions: Colonoscopy (DC) Activity:: Activity as Tolerated Diet:: As Tolerated Discharge Orders Discharge Orders: Discharge Order (Routine); Ordered 01/15/18 Ordered By: Mckay Orr DS: Diagnosis Discharge Diagnosis (1) Sigmoid diverticulitis: Status: Acute
[2018-01-15 11:05] VITALS: BP 132/67; PULSE 53; RESP 16; TEMP 36; O2SAT 97
== END 2018-01-15 12:05 | disposition home or self-care (01) ==
PROVIDERS: PCP Family Medicine; Visit Provider Surgery
PROC: 0DJD8ZZ Inspection of Lower Intestinal Tract, Via Natural or Artificial Opening Endoscopic (ICD-10-PCS; CPT 45378; principal; 2018-01-15 09:30)
DX: Z12.11 Encounter for screening for malignant neoplasm of colon (principal); K57.30 Diverticulosis of large intestine without perforation or abscess without bleeding; I10 Essential (primary) hypertension; K21.9 Gastro-esophageal reflux disease without esophagitis
CPT/HCPCS: 45378; NC

== ENCOUNTER 2018-02-08 00:52 | Outpatient (CLI) | payer OTHER, SELFPAY ==
[2018-02-08 14:59] LABS: ALT 31 U/L (12-78); AST 20 U/L (15-37); Albumin 3.7 g/dL (3.4-5.0); Alkaline Phosphatase 56 U/L (46-116); BUN 14 mg/dL (7-18); Bilirubin, Total 0.6 mg/dL (0.2-1.0); CREATININE 0.96 mg/dL (0.70-1.30); Calcium 9.1 mg/dL (8.5-10.1); Chloride 104 mmol/L (98-107); Glucose 119 mg/dL (70-100); Potassium 4.4 mmol/L (3.5-5.1); Sodium 142 mmol/L (136-145); Total Protein 7.1 g/dL (6.4-8.2)
[2018-02-08 15:14] LABS: Cholesterol 210 mg/dL (50-200); HDL Cholesterol 41 mg/dL (40-60); LDL CHOLESTEROL 151 mg/dL (<100); TSH (W/Ref FT4) 3.29 uIU/mL (0.358-3.74); Triglyceride 142 mg/dL (30-150); Vitamin B12 589 pg/mL (193-986)
[2018-02-08 15:27] LABS: Hemoglobin A1C 6.5 % (4.5-6.2)
== END 2018-02-08 01:12 ==
PROVIDERS: PCP Family Medicine; Visit Provider Psychiatry & Neurology Neurology
DX: R41.3 Other amnesia (principal); E11.9 Type 2 diabetes mellitus without complications
CPT/HCPCS: 36415; 80053; 80061; 83721; 82607; 83036; 84443

== ENCOUNTER 2018-02-16 00:12 | Outpatient (CLI) | payer OTHER, SELFPAY ==
--- NOTE | 2018-02-16 08:25 | DI.MRI_ITS ---
SYMPTOM/DIAGNOSIS: MEMORY LOSS, R41.3 BRAIN MRI: Comparison is made with 06/21/09. There is slight patient motion artifact present. There is mild prominence of the ventricles and sulci consistent with the patient 's age. It appears symmetric and diffuse. There are several foci of T 2 hyperintensity in the white matter on the FLAIR and T 2 weighted images most suggestive of small vessel ischemic disease. The diffusion weighted images are unremarkable. No evidence of an acute infarct are seen. No intracranial hemorrhage is present. The ventricles are intact. The basilar cisterns are patent. There is a flow void in the [place]. There is no acute midline shift or mass effect. IMPRESSION: Age appropriate cerebral atrophy. Small vessel ischemic disease.
== END 2018-02-16 00:32 ==
PROVIDERS: PCP Family Medicine; Visit Provider Psychiatry & Neurology Neurology
DX: R41.3 Other amnesia (principal); G31.9 Degenerative disease of nervous system, unspecified; I67.9 Cerebrovascular disease, unspecified
CPT/HCPCS: 70551

== ENCOUNTER 2018-02-23 07:15 | Emergency (ER) | payer OTHER, SELFPAY ==
[2018-02-23 07:19] VITALS: BP 168/67; PULSE 66; RESP 18; TEMP 36.7; O2SAT 96
--- NOTE | 2018-02-23 07:26 | W.ED.GENAD ---
Discharge Plan Disposition Patient Disposition: HOME Condition: Good Discharge Details Chief Complaint: Orthopedic Clinical Impression: Cellulitis of second toe of left foot Primary Care Provider: Shyam Harvey ED Provider: Provider,Temporary Home Meds and New Rx's Prescriptions: New clindamycin HCl 150 mg capsule 450 mg PO TID 14 Days Qty: 126 RF: 0 Continue berberine-herbal comb no.18 capsule PO DAILY RF: 0 fluconazole 150 mg tablet 150 mg PO QWEEK Qty: 4 RF: 0 magnesium oxide-Mg AA chelate [Magnesium (oxide/AA chelate)] 300 mg capsule PO DAILY RF: 0 blood sugar diagnostic [FreeStyle Test] 1 EACH strip 1 ea Miscellaneous BID RF: 0 acetaminophen [Tylenol Extra Strength] 500 MG tablet 500 mg PO TID PRN RF: 0 naproxen sodium [Aleve] 220 MG capsule 220 mg PO BID PRN RF: 0 saw palmetto fruit 450 MG capsule 450 mg PO DAILY Qty: 90 RF: 3 SCHISANDRA 500 mg 500 mg PO PRN Qty: 90 RF: 3 VITAMIN B COMPLEX 1 EACH tablet 1 tab-cap PO DAILY Qty: 90 RF: 3 Lactobacillus acidophilus [Probiotic] 1 EACH capsule 1 ea PO DAILY Qty: 90 RF: 3 ascorbic acid (vitamin C) [Vitamin C] 125 MG tablet,chewable 125 mg PO DAILY Qty: 90 RF: 3 bee pollen 550 MG capsule 550 mg PO BID Qty: 180 RF: 3 quercetin 1 cap 1 cap PO DAILY Qty: 90 RF: 3 omeprazole 20 MG capsule,delayed release(DR/EC) 20 mg PO PRN PRNQty: 33 RF: 3 cholecalciferol (vitamin D3) 1,000 UNIT capsule 1,000 unit PO BID RF: 0 flaxseed-omega3,6,9-fatty acid 1 EACH capsule 1 ea PO DAILY RF: 0 pravastatin 20 MG tablet 20 mg PO DAILY Qty: 90 RF: 3 chromium picolinate 200 MCG tablet 200 mcg PO DAILY RF: 0 omega-3 fatty acids-fish oil [Fish Oil] 1 EACH capsule 1 ea PO BID RF: 0 bilberry fruit extract 80 MG capsule 80 mg PO DAILY RF: 0 coQ10 (ubiquinol) 100 MG capsule 1,000 mg PO DAILY RF: 0 metformin 500 mg tablet 1,000 mg PO BID 90 Days Qty: 360 RF: 3 Discharge Instructions Instructions: Cellulitis (ED) Additional Instructions: Follow up with your primary care provider in a week for a recheck if you have fevers, severe worsening pain or redness spreading up the leg return to the emergency department Medical Decision Making Patient here with what appears to be a cellulitis, no systemic symptoms or severe pain so doubt nec fasc or sepsis. Will start PO abx and advised f/u with pcp and return precautions given Differential Diagnosis cellulitis, diabetic foot infection HPI General Mode of arrival: ambulatory. Date/Time Provider Initiated Documentation: 02/23/18 07:21. Limitations to Documentation: no limitations. Information obtained by: patient. History of Present Illness 72 year old M presents to the emergency department with the chief complaint of left 2nd toe redness, described as moderate, with intensity rated at 4. Quality is described as aching, and is localized to the left and lower extremity. Patient reports no radiation. Patient started experiencing this day(s) (3) and it has been constant. No relieving factors improve symptom(s), No exacerbating factors reported . Patient notes no other symptoms.. Patient did receive the following treatments prior to arrival, none Related Data Home Medications Medication Instructions Recorded Confirmed acetaminophen [Tylenol Extra 500 mg PO TID PRN 08/04/12 02/12/18 Strength] blood sugar diagnostic [FreeStyle strip 08/04/12 02/12/18 Test] naproxen sodium [Aleve] 220 mg PO BID PRN 08/04/12 02/12/18 saw palmetto fruit 450 mg PO DAILY #90 tab-cap 04/22/13 02/12/18 Lactobacillus acidophilus 1 ea PO DAILY #90 tab-cap 04/27/15 02/12/18 [Probiotic] ascorbic acid (vitamin C) [Vitamin 125 mg PO DAILY #90 tab.chew 04/27/15 02/12/18 C] bee pollen 550 mg PO BID #180 tab-cap 04/27/15 02/12/18 omeprazole 20 mg PO PRN PRN #33 tab-cap 08/24/15 02/12/18 cholecalciferol (vitamin D3) 1,000 unit PO BID 05/11/17 02/12/18 flaxseed-omega3,6,9-fatty acid 1 ea PO DAILY 05/11/17 02/12/18 pravastatin 20 mg PO DAILY #90 tab-cap 08/10/17 02/12/18 bilberry fruit extract 80 mg PO DAILY 12/16/17 02/12/18 chromium picolinate 200 mcg PO DAILY 12/16/17 02/12/18 coQ10 (ubiquinol) 1,000 mg PO DAILY 12/16/17 02/12/18 omega-3 fatty acids-fish oil [Fish 1 ea PO BID 12/16/17 02/12/18 Oil] berberine-herbal comb no.18 capsule cap PO DAILY cap 01/06/18 02/12/18 magnesium oxide-magnesium amino cap PO DAILY cap 01/07/18 02/12/18 acid chelate 300 mg capsule fluconazole 150 mg tablet 150 mg PO QWEEK #4 tab 01/26/18 02/12/18 metformin 500 mg tablet 1,000 mg PO BID 90 Days #360 02/19/18 tab-cap clindamycin HCl 450 mg PO TID 14 Days #126 cap 02/23/18 Previous Rx's Medication Instructions Recorded pravastatin 20 mg PO DAILY #90 tab-cap 08/10/17 fluconazole 150 mg tablet 150 mg PO QWEEK #4 tab 01/26/18 metformin 500 mg tablet 1,000 mg PO BID 90 Days #360 02/19/18 tab-cap clindamycin HCl 450 mg PO TID 14 Days #126 cap 02/23/18 Allergies Allergy/AdvReac Type Severity Reaction Status Date / Time diclofenac [Diclofenac] AdvReac Intermediate DIZZY/LIGHT Verified 02/12/18 11:23 HEADED amlodipine AdvReac Mild PEDAL EDEMA Verified 02/12/18 11:23 venlafaxine AdvReac Unknown Verified 02/12/18 11:23 General Stated Complaint: Orthopedic TATUM: 4 Review of Systems Review of Systems All systems reviewed & are unremarkable except as noted in HPI and below Constitutional Denies chills, Denies fever(s) and Denies weakness Eyes Denies loss of vision ENT Denies change in voice Cardiovascular Denies chest pain and Denies dyspnea Respiratory Denies dyspnea Gastrointestinal Denies abdominal pain, Denies nausea and Denies vomiting Genitourinary Denies dysuria Musculoskeletal Denies joint swelling Neurologic Denies loss of vision and Denies weakness Psychiatric Denies depression PFSH Family History Mother No problems noted. Father Alzheimer disease Heart disease Leukemia Myocardial infarction Sister No problems noted. Grandfather Heart disease Myocardial infarction Grandfather No problems noted. Grandmother No problems noted. Grandmother No problems noted. Daughter Substance abuse Diabetes Essential hypertension Depression Daughter No problems noted. 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 pets and animals: No frequency: 1-2 times per week duration: 45-60 minutes/day Smoking/Tobacco Use Status: Former Tobacco Use alcohol intake: current alcohol intake frequency: holidays/special occasions only substance use type: does not use kaiden/islam: Yazdanism special kaiden needs: No Surgical History Arthroscopy, Shoulder (~2001) Repair of inguinal hernia Tonsillectomy and adenoidectomy Exam Const General: no acute distress Orientation: alert HENMT Head: normal to inspection Ears: external ears normal General nose exam: external nose normal Mouth: moist mucous membranes Eyes General: appearance normal, both eyes and all related structures Neck Neck: normal visual inspection Resp Effort & Inspection: normal respiratory effort and able to speak in complete sentences Cardio Rate: regular rate Skin General skin exam: turgor normal Neuro General: alert and oriented x3 Extrem General: normal to inspection Left lower extremity: full ROM, normal capillary refill and foot (left 2nd toe with redness of entire toe, has intact sensation and cap refill, no significant pain or crepitus. ) Psych Mental Status: mental status grossly normal Course Vital Signs Temperature 36.7 C 02/23/18 07:19 Pulse 66 02/23/18 07:19 Respiratory Rate 18 02/23/18 07:19 Blood Pressure 168/67 H 02/23/18 07:19 Pulse Oximetry 96 02/23/18 07:19 Temperature 36.7 C 02/23/18 07:19 Temperature Source Temporal Artery Scan 02/23/18 07:19 Pulse 66 02/23/18 07:19 Respiratory Rate 18 02/23/18 07:19 Respiratory Effort 02/23/18 07:21 Blood Pressure 168/67 H 02/23/18 07:19 Blood Pressure Position Sitting 02/23/18 07:19 Pulse Oximetry 96 02/23/18 07:19 Oxygen Delivery Method Room Air 02/23/18 07:19 Oxygen Flow Rate 0 02/23/18 07:19 Pain Level 7 02/23/18 07:19
[2018-02-23 07:34] VITALS: BP 168/80; PULSE 80; RESP 18; TEMP 36.8; O2SAT 99
== END 2018-02-23 07:34 | disposition home or self-care (01) ==
LOC: ER 07:40
PROVIDERS: Emergency Provider Emergency Medicine; PCP Family Medicine
DX: L03.032 Cellulitis of left toe (principal)
CPT/HCPCS: 99283

== ENCOUNTER 2019-05-24 02:16 | Outpatient (CLI) | payer OTHER, SELFPAY ==
[2019-05-24 09:58] LABS: HCT 44.6 % (40.0-50.0); HGB 14.9 g/dL (13.5-17.5); Mean Corp. HGB Concentration 33.4 g/dL (32.0-36.0); Mean Corpuscular Volume 89.9 fL (80-95); Mean Platelet Volume 9.9 fL (8.0-11.0); Platelet Count 214 x1000/uL (130-400); RBC 4.96 m/cumm (4.50-6.00); RBC Distribution Width 14.9 % (11.8-14.1); White Blood Cell Count 7.26 k/cumm (4.4-10.8)
[2019-05-24 10:16] LABS: Hemoglobin A1C 6.5 % (3.8-5.6)
[2019-05-24 11:12] LABS: ALT 28 U/L (16-63); AST 19 U/L (15-37); Albumin 3.9 g/dL (3.4-5.0); Alkaline Phosphatase 58 U/L (46-116); Anion Gap 10.9 mmol/L (3-11); BUN 15 mg/dL (7-18); Bilirubin, Total 0.7 mg/dL (0.2-1.0); CO2 28.1 mmol/L (21.0-32.0); CREATININE 1.16 mg/dL (0.70-1.30); Calculated LDL 132 mg/dL (<100); Chloride 103 mmol/L (98-107); Cholesterol 192 mg/dL (<200); Glucose 143 mg/dL (74-106); HDL Cholesterol 43 mg/dL (40-60); Potassium 4.6 mmol/L (3.5-5.1); Sodium 142 mmol/L (136-145); Triglyceride 87 mg/dL (<150)
== END 2019-05-24 02:36 ==
PROVIDERS: PCP Family Medicine; Visit Provider Family Medicine
DX: E11.9 Type 2 diabetes mellitus without complications (principal); E78.5 Hyperlipidemia, unspecified
CPT/HCPCS: 36415; 80053; 80061; 85027; 83036

== ENCOUNTER 2019-06-06 03:30 | Outpatient (CLI) | payer OTHER, SELFPAY ==
[2019-06-06 14:53] LABS: Microalb ug/mg Crea 10.2 ug/mg Cr
== END 2019-06-06 03:50 ==
PROVIDERS: PCP Family Medicine; Visit Provider Family Medicine
DX: E11.9 Type 2 diabetes mellitus without complications (principal); R80.9 Proteinuria, unspecified
CPT/HCPCS: 82043; 82570

== ENCOUNTER 2019-11-01 01:41 | Outpatient (CLI) | payer OTHER, SELFPAY ==
--- NOTE | 2019-11-01 12:30 | DI.CT_ITS ---
EXAM: CT HEAD WO/W CLINICAL HISTORY: Right sided weakness x 4wks,? STROKE, CONFUSION,R53.1,R41.0 TECHNIQUE: COMPARISON: No exams were available for comparison FINDINGS: CT examination was performed prior to and following intravenous infusion of 100 cc of Omnipaque 350. There is a large left frontal parietal extra-axial collection which shows heterogeneous attenuation, ranging from mild hypo attenuation to significant hyper attenuation relative to adjacent cerebral pa renchyma,, there is high attenuation noted particularly in the inferior aspect of the extra-axial col lection. This collection measures up to about 3 cm in thickness and extends over a region about 10 c m in AP measurement and deforms the adjacent lateral ventricle, causing significant midline shift to the right, grossly estimated at 1.5-2 cm. No enhancing lesion is identified in the brain. The orbital and temporal bone structures appear inta ct. Visualized paranasal sinuses and mastoid air cells appear clear. Visualized [id number] va sculature is unremarkable except for some atheromatous calcification of cavernous portions of the ICA bilaterally. IMPRESSION: Large left subdural hematoma as described above, attenuation characteristics consistent with subacute and acute components. Maximal thickness of the subdural hematoma is about 3 cm and there is midline shift to the right estimated at 1.5-2 cm.
[2019-11-01 12:55] LABS: Abs Immature Grans 0.01 k/cumm (0.0-0.09); Absolute Basophil Count 0.04 k/cumm (0.0-0.2); Absolute Eosinophil Count 0.12 k/cumm (0.0-0.7); Absolute Lymphocyte Count 1.61 k/cumm (1.2-3.4); Absolute Monocyte Count 0.52 k/cumm (0.11-0.7); Absolute Neutrophil Count 4.47 k/cumm (1.2-6.7); Basophils % 0.6; Eosinophils % 1.8; HCT 42.4 % (40.0-50.0); HGB 14.3 g/dL (13.5-17.5); Immature Grans % 0.1 %; Lymphocytes % 23.8; Mean Corp. HGB Concentration 33.7 g/dL (32.0-36.0); Mean Corpuscular Hemoglobin 30.6 pg (27.0-33.0); Mean Corpuscular Volume 90.8 fL (80-95); Monocytes % 7.7; Platelet Count 225 x1000/uL (130-400); RBC 4.67 m/cumm (4.50-6.00); RBC Distribution Width 13.4 % (11.8-14.1); White Blood Cell Count 6.77 k/cumm (4.4-10.8)
[2019-11-01 13:12] LABS: ALT 21 U/L (16-63); AST 22 U/L (15-37); Albumin 3.9 g/dL (3.4-5.0); Alkaline Phosphatase 55 U/L (46-116); BUN 17 mg/dL (7-18); Bilirubin, Total 0.6 mg/dL (0.2-1.0); CREATININE 1.17 mg/dL (0.70-1.30); Calcium 9.5 mg/dL (8.5-10.1); Chloride 102 mmol/L (98-107); Glucose 115 mg/dL (74-106); Potassium 4.3 mmol/L (3.5-5.1); Sodium 138 mmol/L (136-145); Total Protein 7.7 g/dL (6.4-8.2)
[2019-11-01] MEDS: Omnipaque 350 MG/ML 100 ML BTL IJ (14:18)
== END 2019-11-01 02:01 ==
PROVIDERS: PCP Family Medicine; Visit Provider Nurse Practitioner Family
DX: I62.01 Nontraumatic acute subdural hemorrhage (principal); I62.02 Nontraumatic subacute subdural hemorrhage; R53.1 Weakness; R41.0 Disorientation, unspecified
CPT/HCPCS: 80053; 70470; 85025; J3490

== ENCOUNTER 2019-11-01 14:04 | Emergency (ER) | payer OTHER, SELFPAY ==
[2019-11-01] VITALS (31 sets, daily range): BP systolic 112–168; BP diastolic 54–120; PULSE 54–92; RESP 12–25; TEMP 36.5–36.6; O2SAT 95–99
--- NOTE | 2019-11-01 14:00 | RT.EKG_ITS ---
APPROVED REPORT Exam: Resting ECG Patient Location: E HR:62 bpm ECG Measurements Heart Rate 62 AXIS AK 167 P 55 QRSd 83 QRS 36 QT 397 T 48 QTc 402 <Conclusion> Sinus rhythm...normal P axis, V-rate 60- 99, no st elevation
--- NOTE | 2019-11-01 14:15 | DI.RAD_ITS ---
EXAM: XR PORTABLE CHEST AP CLINICAL HISTORY: L SDH TECHNIQUE: COMPARISON: CR CHEST 2 VIEWS PA,LAT from 11/22/2017 FINDINGS: The heart is not enlarged. Lungs appear grossly clear with mild changes of presumed scarring. No pl eural effusion identified on this frontal film. IMPRESSION: No evidence of acute process.
--- NOTE | 2019-11-01 14:19 | ED.GENADUL_ITS ---
Discharge Plan Disposition Patient Disposition: [facility] Condition: Stable Discharge Details Chief Complaint: CVA/TIA Clinical Impression: SDH (subdural hematoma) Primary Care Provider: Shyam Harvey ED Provider: Devonte Brown Home Meds and New Rx's Prescriptions: No Action melatonin 3 mg capsule 3 mg PO HS PRNRF: 0 activated charcoal 200 mg capsule 280 mg PO DAILY PRNRF: 0 turmeric 400 mg capsule 450 mg PO DAILY RF: 0 CBD oil 10 mg PO/SL BID RF: 0 cholecalciferol (vitamin D3) 25 mcg (1,000 unit) capsule 2,000 unit PO BID RF: 0 Astaxantain w/WILLIAM 4 mg PO RF: 0 Quercetin Advanced 500 mg PO BID RF: 0 vitamin B complex Capsule 1 cap PO BID RF: 0 B-12 liquid 500 mcg PO DAILY RF: 0 Prostate Support PO BID RF: 0 Iodine kelp 300 mcg PO DAILY RF: 0 spirulina 500 mg PO BID RF: 0 ashwaganda 200 mg PO BID RF: 0 buspirone 10 mg tablet 10 mg PO BID Qty: 60 RF: 11 Magnesium (oxide/AA chelate) 300 mg capsule PO DAILY RF: 0 (DME) FreeStyle Test 1 EACH strip 1 ea Miscellaneous BID RF: 0 acetaminophen [Tylenol Extra Strength] 500 MG tablet 500 mg PO TID PRN RF: 0 naproxen sodium [Aleve] 220 MG capsule 220 mg PO BID PRN RF: 0 VITAMIN B COMPLEX 1 EACH tablet 1 tab-cap PO DAILY Qty: 90 RF: 3 Probiotic 1 EACH capsule 1 ea PO DAILY Qty: 90 RF: 3 ascorbic acid (vitamin C) [Vitamin C] 125 MG tablet,chewable 125 mg PO DAILY Qty: 90 RF: 3 bee pollen 550 MG capsule 550 mg PO BID Qty: 180 RF: 3 flaxseed-omega3,6,9-fatty acid 1 EACH capsule 1 ea PO DAILY RF: 0 chromium picolinate 200 MCG tablet 200 mcg PO DAILY RF: 0 Fish Oil 1 EACH capsule 1 ea PO BID RF: 0 bilberry fruit extract 80 MG capsule 80 mg PO DAILY RF: 0 coQ10 (ubiquinol) 100 MG capsule 1,000 mg PO DAILY RF: 0 berberine w/ PPQ tablet 510 mg PO DAILY RF: 0 Mushroom Complex 500 mg PO DAILY RF: 0 lisinopril 5 mg tablet 5 mg PO DAILY Qty: 90 RF: 3 metformin 500 mg tablet 1,000 mg PO BID 90 Days Qty: 360 RF: 3 Medical Decision Making 74-year-old male with a history of hypertension, hyperlipidemia, diabetes who presents from outpatient radiology. He was seen in the primary care office on October 27 and testing was ordered after the patient described 3 weeks of intermittent and then progressively worsening right lower extremity weakness and foot drop with a shuffling gait. He also noted right facial droop. Denies headache, fall, recent illness. He does not take anticoagulants denies use of aspirin, or frequent NSAIDs. No alcohol. He did travel to a in [place] 2 weeks ago. No cough, change to taste or smell, shortness of breath. Patient lives alone in a home [facility]. Has been looking forward to opening a [employer]. His daughter is a respiratory therapist in [facility]. Her name is Loretta and her telephone number is [phone]. He states to me he would not want prolonged life support/ventilation, but would want attempts at resuscitation and surgical intervention with intubation if needed. He was referred from outpatient CT scan when it revealed a large subacute left subdural hemorrhage with midline shift. He as the after mentioned primarily right lower extremity deficit and right facial droop on exam. Laboratories, screening EKG and chest x-ray ordered. Laboratories reveal unremarkable CBC . PT 10, INR 1.0, PTT 26. Chemistries reassuring. Glucose 96, creatinine 1.1, troponin negative. Recent hemoglobin A1c from May 6.5. A screening covid-19 test was sent but will not result today. Images uploaded and case discussed with Dr. Romero of the emergency department and Dr. Reyes of neurosurgery. Patient accepted in transfer to [facility] for consideration of evacuation of his subdural hematoma. Lab Data Lab results reviewed: Yes I reviewed the patient's lab results. Labs: Laboratory Results - last 24 hr 11/01/19 11/01/19 11/01/19 14:15 14:15 14:15 WBC 6.36 RBC 4.70 Hgb 14.3 Hct 43.1 MCV 91.7 MCH 30.4 MCHC 33.2 RDW 13.3 Plt Count 222 MPV 10.0 Immature Gran % 0.2 Neutrophils % 59.9 Lymphocytes % 29.4 Monocytes % 7.9 Eosinophils % 2.0 Basophils % 0.6 Absolute Neutrophils 3.81 Absolute Lymphocytes 1.87 Absolute Monocytes 0.50 Absolute Eosinophils 0.13 Absolute Basophils 0.04 PT 10.4 INR 1.0 APTT 26.2 Sodium 137 Potassium 4.1 Chloride 101 Carbon Dioxide 26.9 Anion Gap 9.1 BUN 17 Creatinine 1.19 Estimated GFR/1.73 m2 59.92 Glucose 96 Calcium 9.2 Magnesium 2.1 Total Bilirubin 0.6 AST 19 ALT 21 Alkaline Phosphatase 55 Troponin I < 0.05 Total Protein 7.4 Albumin 3.7 ECG Data Attestation: I personally reviewed and interpreted this ECG (s) as follows: Interpretation: Normal sinus rhythm with a rate of 62, the QRS is narrow, there is no significant ST segment elevation, there is slight J-point elevation present in lead II. HPI General Mode of arrival: ambulatory . Date/Time Provider Initiated Documentation: 11/01/19 14:06 . Limitations to Documentation: no limitations . Information obtained by: patient . History of Present Illness 74 year old M presents to the emergency department with the chief complaint of Worsening right weakness, primarily leg, for 3+ weeks, described as moderate, Quality is described as constant, and is localized to the left and lower extremity. Patient reports no radiation. Patient started experiencing this day(s) and it has been constant. No relieving factors improve symptom(s), No exacerbating factors reported . Patient notes denies confusion, chest pain, fever/chills, headaches, loss of appetite, nausea/vomiting, seizure, shortness of breath and syncope. Patient did receive the following treatments prior to arrival, none Related Data Home Medications Medication Instructions Recorded Confirmed FreeStyle Test strip 08/04/12 10/30/19 acetaminophen [Tylenol Extra 500 mg PO TID PRN 08/04/12 11/01/19 Strength] naproxen sodium [Aleve] 220 mg PO BID PRN 08/04/12 11/01/19 Probiotic 1 ea PO DAILY #90 tab-cap 04/27/15 11/01/19 ascorbic acid (vitamin C) [Vitamin 125 mg PO DAILY #90 tab.chew 04/27/15 11/01/19 C] bee pollen 550 mg PO BID #180 tab-cap 04/27/15 11/01/19 flaxseed-omega3,6,9-fatty acid 1 ea PO DAILY 05/11/17 11/01/19 Fish Oil 1 ea PO BID 12/16/17 11/01/19 bilberry fruit extract 80 mg PO DAILY 12/16/17 11/01/19 chromium picolinate 200 mcg PO DAILY 12/16/17 11/01/19 coQ10 (ubiquinol) 1,000 mg PO DAILY 12/16/17 11/01/19 magnesium oxide-Mg AA chelate 300 cap PO DAILY cap 01/07/18 10/30/19 mg capsule activated charcoal 200 mg capsule 280 mg PO DAILY PRN cap 05/11/19 11/01/19 melatonin 3 mg capsule 3 mg PO HS PRN 05/11/19 11/01/19 turmeric 400 mg capsule 450 mg PO DAILY cap 05/11/19 11/01/19 Astaxantain w/WILLIAM 4 mg PO 05/12/19 10/30/19 B-12 500 mcg PO DAILY 05/12/19 11/01/19 CBD 10 mg PO/SL BID 05/12/19 11/01/19 Iodine kelp 300 mcg PO DAILY 05/12/19 11/01/19 Mushroom Complex 500 mg PO DAILY 05/12/19 11/01/19 Prostate Support PO BID 05/12/19 10/30/19 Quercetin Advanced 500 mg PO BID 05/12/19 11/01/19 berberine w/ PPQ 510 mg PO DAILY 05/12/19 11/01/19 cholecalciferol (vitamin D3) 25 2,000 unit PO BID cap 05/12/19 11/01/19 mcg (1,000 unit) capsule spirulina 500 mg PO BID 05/12/19 11/01/19 vitamin B complex 1 cap PO BID cap 05/12/19 11/01/19 ashwaganda 200 mg PO BID 05/30/19 11/01/19 lisinopril 5 mg tablet 5 mg PO DAILY #90 tab 07/19/19 11/01/19 metformin 500 mg tablet 1,000 mg PO BID 90 Days #360 07/19/19 11/01/19 tab-cap buspirone 10 mg tablet 10 mg PO BID #60 tab 08/30/19 11/01/19 Previous Rx's Medication Instructions Recorded lisinopril 5 mg tablet 5 mg PO DAILY #90 tab 07/19/19 metformin 500 mg tablet 1,000 mg PO BID 90 Days #360 07/19/19 tab-cap buspirone 10 mg tablet 10 mg PO BID #60 tab 08/30/19 Allergies Allergy/AdvReac Type Severity Reaction Status Date / Time diclofenac [Diclofenac] AdvReac Intermediate DIZZY/LIGHT Verified 11/01/19 14:16 HEADED amlodipine AdvReac Mild PEDAL EDEMA Verified 11/01/19 14:16 venlafaxine AdvReac Unknown Verified 11/01/19 14:16 General Stated Complaint: CVA/TIA TATUM: 2 Review of Systems Narrative: No travel, cough, fever, change to taste or smell. No trauma or injury. Denies anticoagulants, aspirin, or frequent NSAIDs. No alcohol. States he did fall in the shower last week but did not hurt himself. Some right-sided facial droop and some mild difficulty with speech. He states his symptoms initially came and went over days time. [facility] Medical History Diabetes type 2, controlled Diverticulitis of colon (Acute) colonoscopy 2002: [facility] DIVERTICULA; 08/27 COLONOSCOPY: PANDIVERTICULOSIS. Essential hypertension GERD (gastroesophageal reflux disease) History of diverticulitis (Acute) History of diverticulosis Hx of sepsis (Acute) hospitalization in 2018, [facility] Hyperlipidemia Hyperlipidemia (Acute) Hypertension (Chronic) Injury of clavicle (Acute) LEFT, surgery 05/24- Non-ST elevated myocardial infarction (Acute) Normal colonoscopy (Acute 01/15/18) Dr Orr, repeat in 10 years Obesity (Acute) Obesity (BMI 30-39.9) Peptic reflux disease (Acute) Polymicrobial sepsis (Acute) Sensorineural hearing loss, bilateral (Acute 02/19/16) Smoker (Acute) Type 2 diabetes mellitus (Acute) Surgical History Arthroscopy, Shoulder (~2001) History of arthroscopy of left shoulder (Acute) History of tonsillectomy and adenoidectomy (Acute) Hx of left inguinal hernia repair (Acute) Repair of inguinal hernia Tonsillectomy and adenoidectomy Family History Mother , age 86 No problems noted. Father , age 89 Alzheimer disease Heart disease Leukemia Myocardial infarction Sister No problems noted. Maternal Grandfather Heart disease Myocardial infarction Paternal Grandfather No problems noted. Maternal Grandmother No problems noted. Paternal Grandmother No problems noted. Daughter , age 28 Substance abuse Diabetes Essential hypertension Depression Daughter No problems noted. 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 Pets and animals: No Sexually active: No Do you think of yourself as: straight/heterosexual Current gender identity: male What is your relationship status?: How often do you talk on the phone with friends or family?: twice per week How often do you get together with friends or relatives?: once per week How often do you attend gnosticist or sabianist services?: 1-3 times per year Do you belong to any clubs or organized social groups?: no Panel score (0-1 are the most socially isolated patients): 1 What type of physical activity do you participate in: walking, other and yoga Duration: 45-60 minutes/day Frequency: 1-2 times per week Marlee/Pentecostalism: Cheondoism Special marlee needs: No Seatbelt use: always Helmet use: No Drive intox or ride w/intox medical delivery driver: No Do you feel safe at home: Yes Do you feel safe in your relationship?: Yes Exam Narrative Exam Narrative: GEN: awake, alert, oriented 3. Pleasant, well groomed, interactive. HEAD: Normocephalic, atraumatic ENT: Mucous membranes moist, oropharynx unremarkable, symmetrical palate elevation, no tongue deviation. External ear exam unremarkable EYES: PERRL, EOMI, visual doty intact NECK: Full ROM, no JORDYN, no menigismus CHEST/RESP: Nontender, clear to auscultation bilateral, no wheeze/rhonchi/rales CARDIOVASCULAR: RRR, no murmur, rub flores. 2+ Rad pulse bilateral ABDOMEN: Soft, nontender, no mass. +Bowel sounds EXT: The right leg is unable to lift off the bed but has motion against gravity throughout flexion, extension, foot movement. Left upper upper and lower extremity rated 5 out of 5. Right upper extremity with subtle weakness graded 4+. Slight delay of [id number] right. Normal [id number]-[id number] left. Right facial droop present. Neuro: Grossly normal neurologic exam, conversant, interactive. Psych: Speech fluent, thoughts congruent, affect normal Course Vital Signs Vital signs: Vital Signs Temperature 36.5 C 11/01/19 14:07 Pulse 64 11/01/19 14:07 Respiratory Rate 12 11/01/19 14:07 Blood Pressure 168/73 H 11/01/19 14:07 Pulse Oximetry 96 11/01/19 14:07 Temperature 36.5 C 11/01/19 14:07 Pulse 64 11/01/19 14:07 Respiratory Rate 12 11/01/19 14:07 Respiratory Effort Non-Labored 11/01/19 14:14 Blood Pressure 168/73 H 11/01/19 14:07 Blood Pressure Position Sitting 11/01/19 14:07 Pulse Oximetry 96 11/01/19 14:07 Oxygen Delivery Method Room Air 11/01/19 14:07 Oxygen Flow Rate 0 11/01/19 14:07 Pain Level 0 11/01/19 14:07
[2019-11-01 14:23] LABS: Abs Immature Grans 0.01 k/cumm (0.0-0.09); Absolute Basophil Count 0.04 k/cumm (0.0-0.2); Absolute Eosinophil Count 0.13 k/cumm (0.0-0.7); Absolute Lymphocyte Count 1.87 k/cumm (1.2-3.4); Absolute Neutrophil Count 3.81 k/cumm (1.2-6.7); Basophils % 0.6; HCT 43.1 % (40.0-50.0); HGB 14.3 g/dL (13.5-17.5); Immature Grans % 0.2 %; Lymphocytes % 29.4; Mean Corp. HGB Concentration 33.2 g/dL (32.0-36.0); Mean Corpuscular Hemoglobin 30.4 pg (27.0-33.0); Mean Corpuscular Volume 91.7 fL (80-95); Monocytes % 7.9; Neutrophils % 59.9; Platelet Count 222 x1000/uL (130-400); RBC Distribution Width 13.3 % (11.8-14.1); White Blood Cell Count 6.36 k/cumm (4.4-10.8)
[2019-11-01 14:38] LABS: ALT 21 U/L (16-63); AST 19 U/L (15-37); Albumin 3.7 g/dL (3.4-5.0); Alkaline Phosphatase 55 U/L (46-116); Anion Gap 9.1 mmol/L (3-11); BUN 17 mg/dL (7-18); Bilirubin, Total 0.6 mg/dL (0.2-1.0); CO2 26.9 mmol/L (21.0-32.0); CREATININE 1.19 mg/dL (0.70-1.30); Calcium 9.2 mg/dL (8.5-10.1); Chloride 101 mmol/L (98-107); Estimated GFR 59.92 (mL/min/1.73m2); Glucose 96 mg/dL (74-106); Magnesium 2.1 mg/dL (1.8-2.4); Potassium 4.1 mmol/L (3.5-5.1); Sodium 137 mmol/L (136-145); Total Protein 7.4 g/dL (6.4-8.2)
[2019-11-01 14:39] LABS: Troponin I < 0.05 ng/mL (<0.06)
[2019-11-01 14:42] LABS: PTT Activated 26.2 sec (21.0-31.4); Prothrombin Time 10.4 sec (9.3-11.0)
[2019-11-01 15:02] LABS: Bilirubin Negative (Negative); Blood Negative (Negative); Clarity Clear (Clear); Glucose Negative (Negative); Ketones 40 mg/dL (Negative); Leukocyte Esterase Negative (Negative); Nitrite Negative (Negative); Urobilinogen 0.2 EU/dL (Up TO 0.2)
[2019-11-01] MEDS: levETIRAcetam 1,000 MG in Normal Saline 100 ML 400 MG IVPB (16:29)
--- NOTE | 2019-11-01 17:12 | NUR.NOTE ---
Nursing Note: [facility]. At the time of transfer the PT is alert and oriented
[2019-11-02 00:23] LABS: COVID-19 RT-PCR UVMMC Result Negative (Negative)
--- NOTE | 2019-11-02 10:03 | NUR.NOTE ---
Nursing Note: Patient's COVID test result came back, negative and was faxed to [facility]. Antonieta Ackerman
== END 2019-11-01 17:15 | disposition short-term general hospital (02) ==
PROVIDERS: Emergency Provider Emergency Medicine; PCP Family Medicine
DX: I62.02 Nontraumatic subacute subdural hemorrhage (principal); G83.11 Monoplegia of lower limb affecting right dominant side; R29.810 Facial weakness; Z11.59 Encounter for screening for other viral diseases; I10 Essential (primary) hypertension; E11.9 Type 2 diabetes mellitus without complications
CPT/HCPCS: 36415; 36416; 80053; 82962; 93005; 96365; 99285; U0003; 71045; 81003; 83735; 84484; 85025; 85610; 85730; 93010; J1953

== ENCOUNTER 2019-12-08 20:14 | Outpatient (REF) | payer OTHER, SELFPAY ==
[2019-12-08 11:49] LABS: Bilirubin Negative (Negative); Blood Negative (Negative); Clarity Clear (Clear); Glucose Negative (Negative); Ketones 15 mg/dL (Negative); Leukocyte Esterase Negative (Negative); Nitrite Negative (Negative); Urobilinogen 0.2 EU/dL (Up TO 0.2)
== END 2019-12-08 20:34 ==
LOC: LBN 20:14
PROVIDERS: PCP Family Medicine; Visit Provider Family Medicine
DX: R30.0 Dysuria (principal)
CPT/HCPCS: 81003

== ENCOUNTER 2019-12-27 04:48 | Outpatient (CLI) | payer OTHER, SELFPAY ==
[2019-12-27 10:59] LABS: Abs Immature Grans 0.01 10^3/uL (0.0-0.06); Absolute Basophil Count 0.08 10^3/uL (0.0-0.2); Absolute Eosinophil Count 0.15 10^3/uL (0.0-0.7); Absolute Lymphocyte Count 2.09 10^3/uL (1.2-3.4); Absolute Monocyte Count 0.72 10^3/uL (0.1-0.8); Absolute Neutrophil Count 2.72 10^3/uL (1.2-6.7); Basophils % 1.4; Eosinophils % 2.6; HCT 41.1 % (40.0-50.0); Immature Grans % 0.2; Lymphocytes % 36.2; MCH 30.5 pg (27.0-33.0); MCHC 31.6 % (32.0-36.0); MCV 96.5 fL (80-95); MPV 9.3 fL (8.0-11.0); Monocytes % 12.5; Neutrophils % 47.1; Nucleated RBC 0 %; Platelet Count 172 10^3/uL (130-400); RBC 4.26 10^6/uL (4.36-5.78); RDW-SD 62.8 fL; WBC 5.77 10^3/uL (4.4-10.8)
[2019-12-27 11:15] LABS: Hemoglobin A1C 6.3 % (<5.7)
[2019-12-27 11:51] LABS: ALT 68 U/L (16-63); AST 45 U/L (15-37); Albumin 3.1 g/dL (3.4-5.0); Alkaline Phosphatase 48 U/L (46-116); Anion Gap 4.8 mmol/L (3-11); BUN 15 mg/dL (7-18); Bilirubin, Total 0.5 mg/dL (0.2-1.0); CO2 31.2 mmol/L (21.0-32.0); CREATININE 1.18 mg/dL (0.70-1.30); Calcium 8.6 mg/dL (8.5-10.1); Chloride 103 mmol/L (98-107); Glucose 107 mg/dL (74-106); Potassium 4.3 mmol/L (3.5-5.1); Sodium 139 mmol/L (136-145); Total Protein 6.5 g/dL (6.4-8.2)
== END 2019-12-27 05:08 ==
PROVIDERS: PCP Family Medicine; Visit Provider Family Medicine
DX: E11.9 Type 2 diabetes mellitus without complications (principal); R35.1 Nocturia; R30.0 Dysuria
CPT/HCPCS: 36415; 80053; 83036; 85025; 87086

== ENCOUNTER → 2020-01-11 10:52 | Outpatient (BNVA) | payer OTHER, SELFPAY | PROVIDERS: PCP Family Medicine; Referring Provider Family Medicine; Visit Provider Nurse Practitioner Gerontology | DX: N40.1 Benign prostatic hyperplasia with lower urinary tract symptoms (principal); N13.8 Other obstructive and reflux uropathy; E11.9 Type 2 diabetes mellitus without complications; I10 Essential (primary) hypertension | CPT/HCPCS: 99204; 99215 ==

== ENCOUNTER 2020-01-19 18:57 | Outpatient (REF) | payer OTHER, SELFPAY ==
[2020-01-19 21:53] LABS: PSA, Screening 7.1 ng/mL (0.0-6.5)
== END 2020-01-19 19:17 ==
LOC: LBN 18:57
PROVIDERS: PCP Family Medicine; Visit Provider Nurse Practitioner Gerontology
DX: N40.1 Benign prostatic hyperplasia with lower urinary tract symptoms (principal); N13.8 Other obstructive and reflux uropathy; Z12.5 Encounter for screening for malignant neoplasm of prostate
CPT/HCPCS: 84153

== ENCOUNTER → 2020-01-25 10:23 | Outpatient (BNVA) | payer OTHER, SELFPAY | PROVIDERS: PCP Family Medicine; Referring Provider Family Medicine; Visit Provider Nurse Practitioner Gerontology | DX: N40.1 Benign prostatic hyperplasia with lower urinary tract symptoms (principal); N13.8 Other obstructive and reflux uropathy; R97.20 Elevated prostate specific antigen [PSA]; I63.9 Cerebral infarction, unspecified; N52.9 Male erectile dysfunction, unspecified; E11.9 Type 2 diabetes mellitus without complications; I10 Essential (primary) hypertension | CPT/HCPCS: 99213; 99441 ==

== ENCOUNTER 2020-04-26 02:39 | Outpatient (CLI) | payer MEDICARE, SELFPAY ==
[2020-04-27 11:44] LABS: Free PSA/PSA Ratio 0.18 ratio
== END 2020-04-26 02:59 ==
PROVIDERS: PCP Family Medicine; Visit Provider Nurse Practitioner Gerontology
DX: R97.20 Elevated prostate specific antigen [PSA] (principal); N13.8 Other obstructive and reflux uropathy; N40.1 Benign prostatic hyperplasia with lower urinary tract symptoms
CPT/HCPCS: 36415; 84154

== ENCOUNTER → 2020-05-01 12:36 | Outpatient (BNVA) | payer MEDICARE, SELFPAY | PROVIDERS: PCP Family Medicine; Referring Provider Family Medicine; Visit Provider Nurse Practitioner Gerontology | DX: R97.20 Elevated prostate specific antigen [PSA] (principal); Z12.5 Encounter for screening for malignant neoplasm of prostate | CPT/HCPCS: 99213 ==

== ENCOUNTER 2020-10-24 02:56 | Outpatient (CLI) | payer MEDICARE, SELFPAY ==
[2020-10-24 14:48] LABS: Bilirubin Negative (Negative); Blood Negative (Negative); Clarity Clear (Clear); Glucose Negative (Negative); Ketones Negative (Negative); Leukocyte Esterase Trace (Negative); Nitrite Negative (Negative); Urobilinogen 0.2 EU/dL (Up TO 0.2)
[2020-10-24 15:01] LABS: Bacteria Few HPF (Negative); C & S Indicated? Yes; Casts 0-2 Hyaline LPF (Negative); Crystals Moderate Amorphous HPF (Negative); Epithelial Cells Negative HPF (Negative); Mucus Negative (Negative); RBC Negative HPF (0-2)
[2020-10-24 21:47] LABS: PSA, Diagnostic 13.9 ng/mL (0.0-6.5)
== END 2020-10-24 02:57 | disposition home or self-care (01) ==
LOC: LBO 02:56
PROVIDERS: Urology; PCP Nurse Practitioner Family; Visit Provider Nurse Practitioner Gerontology
DX: R30.0 Dysuria (principal); R97.20 Elevated prostate specific antigen [PSA]; N40.1 Benign prostatic hyperplasia with lower urinary tract symptoms
CPT/HCPCS: 36415; 81003; 81015; 84153; 87086

== ENCOUNTER → 2020-10-29 15:09 | Outpatient (BNVA) | payer MEDICARE, SELFPAY | PROVIDERS: PCP Nurse Practitioner Family; Referring Provider Family Medicine; Visit Provider Nurse Practitioner Gerontology | DX: N40.1 Benign prostatic hyperplasia with lower urinary tract symptoms (principal); R97.20 Elevated prostate specific antigen [PSA]; N13.8 Other obstructive and reflux uropathy | CPT/HCPCS: 99214 ==

== ENCOUNTER 2021-01-25 01:49 | Outpatient (CLI) | payer MEDICARE, SELFPAY | END 2021-01-25 01:50 | disposition home or self-care (01) | LOC: LBO 01:49 | PROVIDERS: PCP Nurse Practitioner Family; Visit Provider Nurse Practitioner Gerontology | DX: N40.1 Benign prostatic hyperplasia with lower urinary tract symptoms (principal); N13.8 Other obstructive and reflux uropathy | CPT/HCPCS: 36415; 84153 ==

== ENCOUNTER → 2021-01-30 14:21 | Outpatient (BNVA) | payer MEDICARE, SELFPAY | PROVIDERS: PCP Nurse Practitioner Family; Visit Provider Nurse Practitioner Gerontology | DX: N40.1 Benign prostatic hyperplasia with lower urinary tract symptoms (principal); N13.8 Other obstructive and reflux uropathy; R97.20 Elevated prostate specific antigen [PSA] | CPT/HCPCS: 99213 ==

== ENCOUNTER 2021-07-26 02:50 | Outpatient (CLI) | payer MEDICARE, SELFPAY | END 2021-07-26 02:51 | disposition home or self-care (01) | LOC: LBO 02:50 | PROVIDERS: PCP Nurse Practitioner Family; Visit Provider Nurse Practitioner Gerontology ==

== ENCOUNTER 2021-07-31 03:11 | Outpatient (CLI) | payer MEDICARE, SELFPAY ==
[2021-07-31 22:33] LABS: PSA, Diagnostic 8.8 ng/mL (<=6.5)
== END 2021-07-31 03:12 | disposition home or self-care (01) ==
LOC: LBO 03:11
PROVIDERS: PCP Nurse Practitioner Family; Visit Provider Nurse Practitioner Gerontology
DX: N40.1 Benign prostatic hyperplasia with lower urinary tract symptoms (principal); R97.20 Elevated prostate specific antigen [PSA]; N13.8 Other obstructive and reflux uropathy
CPT/HCPCS: 36415; 84153

== ENCOUNTER → 2021-10-09 07:49 | Outpatient (BNVA) | payer MEDICARE, SELFPAY | PROVIDERS: PCP Nurse Practitioner Family; Referring Provider Nurse Practitioner Family; Visit Provider Nurse Practitioner Gerontology | DX: N40.1 Benign prostatic hyperplasia with lower urinary tract symptoms (principal); N13.8 Other obstructive and reflux uropathy; R97.20 Elevated prostate specific antigen [PSA] | CPT/HCPCS: 99442 ==

== ENCOUNTER → 2021-10-17 14:28 | Outpatient (BNVA) | payer MEDICARE, SELFPAY | PROVIDERS: PCP Nurse Practitioner Family; Referring Provider Nurse Practitioner Family; Visit Provider Nurse Practitioner Gerontology | DX: N40.1 Benign prostatic hyperplasia with lower urinary tract symptoms (principal); R33.8 Other retention of urine; R97.20 Elevated prostate specific antigen [PSA] | CPT/HCPCS: 51798; 99213 ==

== ENCOUNTER 2022-02-05 02:38 | Outpatient (CLI) | payer MEDICARE, SELFPAY ==
[2022-02-05 15:29] LABS: Hemoglobin A1C 7.4 % (<5.7)
[2022-02-05 15:42] LABS: CREATININE 1.1 mg/dL (0.70-1.30); Estimated GFR 70.01 (mL/min/1.73m2); Potassium 4.2 mmol/L (3.5-5.1)
[2022-02-05 23:08] LABS: PSA, Diagnostic 7.4 ng/mL (<=6.5)
== END 2022-02-05 02:39 | disposition home or self-care (01) ==
LOC: LBO 02:38
PROVIDERS: PCP Nurse Practitioner Family; Visit Provider Nurse Practitioner Gerontology
DX: E11.9 Type 2 diabetes mellitus without complications (principal); I10 Essential (primary) hypertension; R97.20 Elevated prostate specific antigen [PSA]
CPT/HCPCS: 36415; 82565; 83036; 84132; 84153

== ENCOUNTER 2022-02-10 14:24 | Outpatient (REF) | payer MEDICARE, SELFPAY ==
[2022-04-04 12:16] LABS: Result See Comments
== END 2022-02-10 14:25 | disposition home or self-care (01) ==
LOC: LBN 14:24
PROVIDERS: PCP Nurse Practitioner Family; Visit Provider Nurse Practitioner Family
DX: L72.3 Sebaceous cyst (principal)
CPT/HCPCS: 87077; 87186; 87070; 87205

== ENCOUNTER → 2022-02-12 14:20 | Outpatient (BNVA) | payer MEDICARE, SELFPAY | PROVIDERS: PCP Nurse Practitioner Family; Referring Provider Nurse Practitioner Family; Visit Provider Nurse Practitioner Gerontology | DX: N40.1 Benign prostatic hyperplasia with lower urinary tract symptoms (principal); N13.8 Other obstructive and reflux uropathy; R97.20 Elevated prostate specific antigen [PSA] | CPT/HCPCS: 99213 ==

== ENCOUNTER 2022-08-20 02:39 | Outpatient (CLI) | payer MEDICARE, SELFPAY ==
[2022-08-20 22:17] LABS: PSA, Diagnostic 8.8 ng/mL (<=6.5)
== END 2022-08-20 02:40 | disposition home or self-care (01) ==
LOC: LBO 02:39
PROVIDERS: PCP Nurse Practitioner Family; Visit Provider Nurse Practitioner Gerontology
DX: N13.8 Other obstructive and reflux uropathy (principal); N40.1 Benign prostatic hyperplasia with lower urinary tract symptoms; R97.20 Elevated prostate specific antigen [PSA]
CPT/HCPCS: 36415; 84153

== ENCOUNTER → 2022-08-27 14:13 | Outpatient (BNVA) | payer MEDICARE, SELFPAY | PROVIDERS: PCP Nurse Practitioner Family; Visit Provider Nurse Practitioner Gerontology | DX: N40.1 Benign prostatic hyperplasia with lower urinary tract symptoms (principal); N13.8 Other obstructive and reflux uropathy; R97.20 Elevated prostate specific antigen [PSA] | CPT/HCPCS: 51798; 99213 ==

== ENCOUNTER → 2022-12-10 14:15 | Outpatient (BNVA) | payer MEDICARE, SELFPAY | PROVIDERS: PCP Nurse Practitioner Family; Referring Provider Nurse Practitioner Family; Visit Provider Nurse Practitioner Gerontology | DX: R97.20 Elevated prostate specific antigen [PSA] (principal); N40.1 Benign prostatic hyperplasia with lower urinary tract symptoms; R39.89 Other symptoms and signs involving the genitourinary system | CPT/HCPCS: 51798; 99213 ==

== ENCOUNTER 2023-01-14 02:52 | Outpatient (CLI) | payer MEDICARE, SELFPAY ==
[2023-01-14 15:01] LABS: CREATININE 1.2 mg/dL (0.70-1.30); Calculated LDL 172 mg/dL (<100); Cholesterol 281 mg/dL (<200); Estimated GFR 62.67 (mL/min/1.73m2); HDL Cholesterol 45 mg/dL (40-60); Potassium 4.2 mmol/L (3.5-5.1); Triglyceride 321 mg/dL (<150)
== END 2023-01-14 02:53 | disposition home or self-care (01) ==
LOC: LBO 02:53
PROVIDERS: PCP Nurse Practitioner Family; Visit Provider Nurse Practitioner Family
DX: I10 Essential (primary) hypertension (principal); E78.5 Hyperlipidemia, unspecified
CPT/HCPCS: 36415; 80061; 82565; 84132

== ENCOUNTER 2023-03-03 01:22 | Outpatient (CLI) | payer MEDICARE, SELFPAY | END 2023-03-03 01:23 | disposition home or self-care (01) | LOC: LBO 01:23 | PROVIDERS: PCP Nurse Practitioner Family; Visit Provider Nurse Practitioner Gerontology | DX: R97.20 Elevated prostate specific antigen [PSA] (principal); N40.1 Benign prostatic hyperplasia with lower urinary tract symptoms; N13.8 Other obstructive and reflux uropathy | CPT/HCPCS: 36415; 84153 ==

== ENCOUNTER → 2023-03-10 14:20 | Outpatient (BNVA) | payer MEDICARE, SELFPAY | PROVIDERS: PCP Nurse Practitioner Family; Visit Provider Nurse Practitioner Gerontology | DX: N40.1 Benign prostatic hyperplasia with lower urinary tract symptoms (principal); N13.8 Other obstructive and reflux uropathy; R97.20 Elevated prostate specific antigen [PSA] | CPT/HCPCS: 99213 ==

== ENCOUNTER 2023-09-03 05:09 | Outpatient (CLI) | payer MEDICARE, SELFPAY ==
[2023-09-03 22:42] LABS: PSA, Diagnostic 8.6 ng/mL (<=6.5)
== END 2023-09-03 05:10 | disposition home or self-care (01) ==
LOC: LBO 05:09
PROVIDERS: Nurse Practitioner Gerontology; PCP Nurse Practitioner Family; Visit Provider Nurse Practitioner Family
DX: R97.20 Elevated prostate specific antigen [PSA] (principal); N40.1 Benign prostatic hyperplasia with lower urinary tract symptoms; N13.8 Other obstructive and reflux uropathy
CPT/HCPCS: 36415; 84153

== ENCOUNTER → 2023-09-08 13:54 | Outpatient (BNVA) | payer MEDICARE, SELFPAY | PROVIDERS: PCP Nurse Practitioner Family; Visit Provider Nurse Practitioner Gerontology | DX: N40.1 Benign prostatic hyperplasia with lower urinary tract symptoms (principal); N13.8 Other obstructive and reflux uropathy; R97.20 Elevated prostate specific antigen [PSA] | CPT/HCPCS: 51798; 99213 ==

== ENCOUNTER 2023-12-15 17:57 | Outpatient (REF) | payer MEDICARE, SELFPAY ==
--- OUTSIDE RECORDS SUMMARY | 2023-12-15 18:07 | XMS_ITS | Encounter Summary ---
Author Organization [facility] [place] [address] Care Team Providers Care Baggage Clerk Name Role Phone Shyam Harvey MD Primary Care Provider [phone] Reason for Visit * Reason Onset Date Comments TeleHealth 03/19/2020 Encounter Details Date Type Department Care Team (Late st Contact Info) Description 03/19/2020 [place] [address] Winter Harman APRN [facility] [place] [address] TeleHealth Social History Tobacco Use Types Packs/Day Years Used Date Smoking Tobacco: Former Cigarettes 1 50 1 953 - 2003 Smokeless Tobacco: Never Alcohol Use Standard Drinks/Week Comments Yes 0 (1 standard drink = 0.6 oz pur e alcohol) rare Sex and Gender Information Value Date Recorded Sex Assigned at Not on file Gender Identity Not on file Sexual Orientation Not on file documented as of this encounter Miscellaneous Notes * Telephone Encounter - Winter Archibald RN - 03/19/2020 12:39 PM EST Unable to reach this patient by phone to review medications and allergies prior to upcoming tele-appointment scheduled with Neurosurgery provider. No message left. documented in this encounter Plan of Treatment Not on file documented as of this encounter Visit Diagnoses Not on filedocumented in this encounter Care Teams Baggage Clerk Relationship Specialty Start Date End Date Shyam Harvey MD PCP - General General Internal Medicine 02/09/1812/21 documented as of this encounter
--- OUTSIDE RECORDS SUMMARY | 2023-12-15 18:07 | XMS_ITS | Encounter Summary ---
Author Organization [facility] [place] [address] Care Team Providers Care Marinator Name Role Phone Shyam Harvey MD Primary Care Provider [phone] Encounter Details Date Type Department Care Team (Late st Contact Info) Description 05/03/2020 Telephone [facility]surgery [facility] [place] [id number] Callie Scott Social History Tobacco Use Types Packs/Day Years Used Date Smoking Tobacco: Former Cigarettes 1 50 1 953 - 2002 Smokeless Tobacco: Never Alcohol Use Standard Drinks/Week Comments Yes 0 (1 standard drink = 0.6 oz pur e alcohol) rare Sex and Gender Information Value Date Recorded Sex Assigned at Not on file Gender Identity Not on file Sexual Orientation Not on file documented as of this encounter Miscellaneous Notes * Telephone Encounter - Judy Lopez - 05/08/2020 10:45 AM EST Attempted to reach patient. Home number is not connected. Work number rings and disconnects. [employer] has voicemail for a Ludivina Orlando, left message to see if she is the nascar pit crew person for patient. Mailing letter to patient and closing encounter. * Telephone Encounter - Callie Scott - 05/03/2020 9:32 AM EST .Attempted to reach pt at all 3 numbers in order to schedule appt for MMA embolism trial w/ CT prior- unable to do so. Please try again, and send a letter if unable to reach pt * Telephone Encounter - Callie Scott - 05/03/2020 9:32 AM EST ----- Message from James Muñoz MD sent at 04/29/2020 10:51 PM EST ----- Regarding: Needs clinic follow up Secretaries, Please try to contact this patient as he is due for this 6month follow up this week as part of the MMA embolization trial. Winter previously tried to get in touch with him but was not able to. Please try all numbers. If you get in touch with him, please arrange for an in-person (not tele-health) follow up with Winter at the next available appointment ideally within the next two weeks with a CT head. Thank you. James Das documented in this encounter Plan of Treatment Not on file documented as of this encounter Visit Diagnoses Not on filedocumented in this encounter Care Teams Marinator Relationship Specialty Start Date End Date Shyam Harvey MD PCP - General General Internal Medicine 02/09/1812/21 documented as of this encounter
--- OUTSIDE RECORDS SUMMARY | 2023-12-15 18:07 | XMS_ITS | Clinical Summary ---
Author Organization [facility] Address [facility] [place] [address] Care Team Providers Care Bookseamer Blindstitch Name Role Phone Unavailable Primary Care Provider Unavailabl e Allergies No known active allergies Medications Medication Sig Dispensed Refills Start Date End Date Status lisinopriL (Prinivil;Zestril) 5 mg Tablet Take 5 mg by mouth daily. Active metFORMIN (GLUCOPHAGE) 1,000 mg Tablet Take 1,000 mg by mouth 2 times daily (with meals). Active acetaminophen (Tylenol) 325 mg Tablet Take 2 tablets by mouth every 4 hours as needed for Pain. 30 tablet 1 11/16/2019 Active divalproex EC (Depakote) 250 mg Tablet, Delayed Release (E.C.) Take 3 tablets by mouth 3 times daily. 11/16/2019 Active melatonin 3 mg Tablet Take 1 tablet by mouth nightly. 11/16/2019 Active magnesium 250 mg Tablet Take by mouth. Active ascorbic acid, vitamin C, (Vitamin C) 100 mg Tablet Take 100 mg by mouth daily. Active cholecalciferol, Vitamin D3, (cholecalciferol, Vitamin D3,) 50 mcg (2,000 unit) Capsule Take by mouth. Active Active Problems Problem Noted Date Diagnosed Date Brain compression 11/17/2019 SDH (subdural hematoma) 11/01/2019 Basal cell carcinoma 07/24/2014 Tinea pedis 07/24/2014 Immunizations Name Administration Dates Next Due Influenza Vaccine, Whole 02/21/2008 Pneumococcal Polysaccharide (Pneumovax 23) 02/15 Social History Tobacco Use Types Packs/Day Years Used Date Smoking Tobacco: Former Cigarettes 1 50 1 953 - 2003 Smokeless Tobacco: Never Tobacco Cessation:Counseling Given: No Alcohol Use Standard Drinks/Week Comments Yes 0 (1 standard drink = 0.6 oz pur e alcohol) rare Sex and Gender Information Value Date Recorded Sex Assigned at Not on file Gender Identity Not on file Sexual Orientation Not on file Last Filed Vital Signs Vital Sign Reading Time Taken Comments Blood Pressure 126/62 12/23/2019 12:45 PM EDT Pulse 68 12/23/2019 12:45 PM EDT Temperature 37.2 ??C (99 ??F) 11/16/2019 4:00 PM EDT Respiratory Rate 20 11/16/2019 4:00 PM EDT Oxygen Saturation 95% 11/16/2019 4:00 PM EDT Inhaled Oxygen Concentration - - Weight 83 kg (183 lb) 12/23/2019 12:45 PM EDT Height 175.3 cm (5' 9) 12/23/2019 12:45 PM EDT Body Mass Index 27.02 12/23/2019 12:45 PM EDT Plan of Treatment Health Maintenance Due Date Last Done Comments Hepatitis C Screening 1964 Tdap adult 1965 Tetanus vaccine 1965 Zoster vaccine (1 of 2) 1996 Pneumoccocal Vaccine: 65+ (2 of 2 - PCV) 09/18/2011 02/16/2004 Covid-19 Vaccine (1 - 2022- season) 2022 Influenza (Flu) vaccine (1 o f 1 - Influenza standard series) 12/20/2023 02/21/2008 Advance Directives Documents on File Type Date Recorded Patient Senior Counsel Expl anation Advance Directives and Shay elizabeth Will 11/28/2019 4:41 PM * Full Code (Latest Code Status on File) Date Activated Date Inactivated Comments 11/01/2019 10:00 PM 11/16/2019 8:11 PM Question Answer Comments Does patient have capacity to make decision: No Code Status decision being made per: Attending o f Record
--- OUTSIDE RECORDS SUMMARY | 2023-12-15 18:07 | XMS_ITS | Encounter Summary ---
Author Organization [facility] [place] [address] Care Team Providers Care Clinical Review Specialist Name Role Phone Jack Xavier MD Primary Care Provider [phone] Reason for Visit * Reason Onset Date Comments Request For Record 01/01/2022 Encounter Details Date Type Department Care Team (Late st Contact Info) Description 01/01/2022 Telephone Family Practice at [address] [address] Christy Anthony Request For Record Social History Tobacco Use Types Packs/Day Years [...] encounter Miscellaneous Notes * Telephone Encounter - Christy Anthony - 01/06/2022 3:56 PM EDT This junior technical writer received call from patient services stating the incorrect patient was scheduled as a new patient and records sent to incorrect patient chart. Please disregard request below and do not send second records request under this chart. * Telephone Encounter - Christy Anthony - 01/01/2022 12:15 PM EDT Patient requested records be sent to office. Please keep an eye out and request if not received. Copied from [facility] #[id number]. Topic: Department Notification - New Patient >> Jan 01, 2022 12:05 PM Savi Patiño wrote: New Patient Visit PCP: JACK XAVIER Patient Requested Records to be Sent to D-H: yes Name of Previous PCP Office: Dr [facility] Name of PCP / Provider: Dr [facility] & State: [facility] Phone #: [phone] Are You Under the Care of a Specialty Care Doctor: No If Yes, Name of Provider(s)N/A City/Town & State: N/A Have you been treated at an ER or facility within the past year? No Appointment Date: 02/05/22 Patient Informed, it is very important for our office to receive your previous records which includes immunizations, office notes, and medication list. If the office does not receive your records prior to your appointment the provider may not be able to address all of your concerns, and it is possible that your appointment may need to be rescheduled. Please be sure to bring all of your medications to your new patient visit. documented in this encounter Plan of Treatment Not on file documented as of this encounter Visit Diagnoses Not on filedocumented in this encounter Care Teams Clinical Review Specialist Relationship Specialty Start Date End Date Jack Xavier MD [address] [place] [address] PCP - General General Internal Medicine 01/01/2212/20 documented as of this encounter
--- OUTSIDE RECORDS SUMMARY | 2023-12-15 18:07 | XMS_ITS | Encounter Summary ---
Author Organization [facility] [place] [address] Care Team Providers Care Echocardiologist Name Role Phone Shyam Harvey MD Primary Care Provider [phone] Encounter Details Date Type Department Care Team (Late st Contact Info) Description 02/24/2020 Ancillary Procedure [place]iology [place] [phone] Shyam Harvey MD [address] [place] [address] [id number] Social History Tobacco Use Types Packs/Day Years [...] on file documented as of this encounter Plan of Treatment Not on file documented as of this encounter Procedures Procedure Name Priority Date/Time Associated Diagnosis Comments FILM LIBRARY STORAGE ONLY CT HEAD Routine 02/24/2020 12:00 AM EST documented in this encounter Results * Film Library- Storage Only CT Head (02/24/2020 12:00 AM EST) Narrative AMILCAR - 02/27/2020 4:01 PM EST This exam is auto-finalizing. It's purpose is for storage only. Shyam Harvey MD G FILM LIBRARY ORD ERABLES [place], [place] documented in this encounter Visit Diagnoses Not on filedocumented in this encounter Care Teams Echocardiologist Relationship Specialty Start Date End Date Shyam Harvey MD PCP - General General Internal Medicine 02/09/1812/21 documented as of this encounter
--- OUTSIDE RECORDS SUMMARY | 2023-12-15 18:07 | XMS_ITS | Encounter Summary ---
Author Organization [facility] [place] [address] Care Team Providers Care Director Of Consumer Affairs Name Role Phone Shyam Harvey MD Primary Care Provider Encounter Details Date Type Department Care Team (Late st Contact Info) Description 03/20/2020 Telephone [place] [address] Winter Harman APRN [facility] [place] [address] Social History Tobacco Use Types Packs/Day Years [...] Miscellaneous Notes * Telephone Encounter - Winter Harman APRN - 03/20/2020 10:11 AM EST I called Mr Westbrook on home number, cell number and work number and was unable to reach through any of these numbers - 10 am Will try again later today/tomrrow. documented in this encounter Plan of Treatment Not on file documented as of this encounter Visit Diagnoses Not on filedocumented in this encounter Care Teams Director Of Consumer Affairs Relationship Specialty Start Date End Date Shyam Harvey MD PCP - General General Internal Medicine 02/09/1812/21 documented as of this encounter
--- OUTSIDE RECORDS SUMMARY | 2023-12-15 18:08 | XMS_ITS | Encounter Summary ---
Author Organization [facility] [place] [address] Care Team Providers Care Ccu Nurse Name Role Phone Shyam Harvey MD Primary Care Provider [phone] Encounter Details Date Type Department Care Team (Late st Contact Info) Description 12/27/2019 [facility] [place] [address] Carmen Potter Social History Tobacco Use Types Packs/Day Years [...] * Telephone Encounter - Judy Lopez - 02/22/2020 10:54 AM EST Spoke with Radiology at [facility], patient scheduled for 02/23. Booked next available TOV with [facility], receipt of imaging will be tracked through clinic prep. * Telephone Encounter - Judy Lopez - 02/15/2020 9:56 AM EDT Faxed order and demos to [facility] ([phone]). Postponing 1 week to allow time for scheduling, then schedule TOV with [facility] * Telephone Encounter - Judy Lopez - 01/02/2020 12:[address] order entered as external for [facility]. Postponing closer to expected date to check for possible PA. * Telephone Encounter - Carmen Potter - 12/27/2019 11:48 AM EDT Patient needs f/u appointment(s): With [facility] on/around 02/24/2020 2 months OV/TOV, s/p SDH , CTH prior ~~~~~~~~~~~~~~~~~~~~~~~~~~~~~~~~~~~~~~~~~~~~~~~~~~~~~~~~~~ Winter Harman APRN Sent: Bridgette December 25, 2019 ??8:16 AM To: P [facility] Neurosurgery Capacity Analyst ?? Follow-up and Dispositions Check-out Note: Follow up 8 weeks with repeat Head CT. documented in this encounter Plan of Treatment Not on file documented as of this encounter Visit Diagnoses Not on filedocumented in this encounter Care Teams Ccu Nurse Relationship Specialty Start Date End Date Shyam Harvey MD PCP - General General Internal Medicine 02/09/18/ documented as of this encounter
--- OUTSIDE RECORDS SUMMARY | 2023-12-15 18:08 | XMS_ITS | Encounter Summary ---
Author Organization [facility] Address [facility] [place] [address] Care Team Providers Care Dispatcher Maintenance Service Name Role Phone hSyam Harvey MD Primary Care Provider [phone] Reason for Referral * Diagnostic Test (Routine) - Closed Specialty Diagnoses / Procedures Referred By Contac t Referred To Contact Radiology Diagnoses SDH (subdural hematoma) Procedures CT Head wo Contrast (Generic) Sheron Loya PA [facility] [place] [address] [facility] [place] [address] Referral ID Status Reason Start Date Expiration Date V isits Requested Visits Authorized [id number] Closed Specialty Service Requested 11/16/2019 05/18/2021 1 1 Reason for Visit * Diagnostic Test (Routine) - Closed Specialty Diagnoses / Procedures Referred By Contac t Referred To Contact Radiology Diagnoses SDH (subdural hematoma) Procedures CT Head wo Contrast (Generic) Sheron Loya PA [facility] [place] [place] [address] [facility] [place] [address] Referral ID Status Reason Start Date Expiration Date V isits Requested Visits Authorized [id number] Closed Specialty Service Requested 11/16/2019 05/18/2021 1 1 Encounter Details Date Type Department Care Team (Latest Contact Info) Description 12/23/2019 11:34 AM EDT - 12/23/2019 11:59 PM EDT Hospital Encounter [facility] [place] [phone] Casey Singh MD [facility] [place] [id number] SDH (subdural hematoma) Discharge Disposition: Home Social History Tobacco Use Types Packs/Day Years [...] on file documented as of this encounter Medications at Time of Discharge Medication Sig Dispensed Refills Start Date End Date magnesium 250 mg Tablet Take by mouth. ascorbic acid, vitamin C, (Vitamin C) 100 mg Tablet Take 100 mg by mouth daily. cholecalciferol, Vitamin D3, (cholecalciferol, Vitamin D3,) 50 mcg (2,000 unit) Capsule Take by mouth. acetaminophen (Tylenol) 325 mg Tablet Take 2 tablets by mouth every 4 hours as needed for Pain. 30 tablet 1 11/16/2019 divalproex EC (Depakote) 250 mg Tablet, Delayed Release (E.C.) Take 3 tablets by mouth 3 times daily. 11/16/2019 melatonin 3 mg Tablet Take 1 tablet by mouth nightly. 11/16/2019 lisinopriL (Prinivil;Zestril) 5 mg Tablet Take 5 mg by mouth daily. metFORMIN (GLUCOPHAGE) 1,000 mg Tablet Take 1,000 mg by mouth 2 times daily (with meals). documented as of this encounter Plan of Treatment Not on file documented as of this encounter Procedures Procedure Name Priority Date/Time Associated Diagnosis Comments CT HEAD WO CONTRAST (GENERIC) Routine 12/23/2019 12:00 PM EDT SDH (subdural hematoma) documented in this encounter Results * CT Head wo Contrast (Generic) (12/23/2019 12:00 PM EDT) Anatomical Region Laterality Modality Head Computed Tomogra phy Impressions 12/23/2019 12:15 PM EDT 1. ??Interval improvement in size and density of left-sided subdural hematoma with improved lvqn-wp-hdepf midline shift. 2. 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 Thank you for letting us participate in the care of this patient. For questions regarding this report, please contact the number below. ? Narrative 12/23/2019 12:15 PM EDT EXAMINATION: CT HEAD WO CONTRAST (GENERIC) CLINICAL HISTORY: Subdural hematoma follow-up Left side SDH TECHNIQUE: CT head performed without intravenous contrast administration. 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 Left-sided subdural hematoma has decreased in size and density now measuring on the order of 1.0 cm in thickness, previously 1.8 cm. Mass effect has improved. Improvement of cezp-ut-ckukj midline shift which is now minimal. The basilar cisterns remain patent. No acute intracranial hemorrhage, mass, hydrocephalus, or evidence of large acute infarction. Left-sided elsy hole craniotomy changes are again noted. Procedure Note Alley Hart MD - 12/23/2019 EXAMINATION: CT HEAD WO CONTRAST (GENERIC) CLINICAL HISTORY: Subdural hematoma follow-up Left side SDH TECHNIQUE: CT head performed without intravenous contrast administration. COMPARISON: None FINDINGS: Embolization material is seen along the inner aspect of the left lowerparietal bone and in the region of the distal left transverse sinus related toknown interval treatment of Cognard type III dural AV fistula. Left-sided subdural hematoma has decreased in size and density nowmeasuring on the order of 1.0 cm in thickness, previously 1.8 cm. Mass effect hasimproved. Improvement of yiad-qo-khdyb midline shift which is now minimal. Thebasilar cisterns remain patent. No acute intracranial hemorrhage, mass,hydrocephalus, or evidence of large acute infarction. Left-sided elsy hole craniotomychanges are again noted. IMPRESSION 1. Interval improvement in size and density of left-sided subduralhematoma with improved dtwo-hy-jtemt midline shift. 2. 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 Thank you for letting us participate in the care of this patient. Forquestions regarding this report, please contact the number below. Electronically signed by: Alley Hart [facility] ([phone]),at 12/23/2019 12:15 PM Casey Singh MD IMG CT ORDERABLES documented in this encounter Visit Diagnoses Diagnosis SDH (subdural hematoma) Subdural hemorrhage documented in this encounter Care Teams Dispatcher Maintenance Service Relationship Specialty Start Date End Date Shyam Harvey MD PCP - General General Internal Medicine 02/09/1812/21 documented as of this encounter
--- OUTSIDE RECORDS SUMMARY | 2023-12-15 18:08 | XMS_ITS | Encounter Summary ---
Author Organization [facility] [place] [address] Care Team Providers Care [employer] T[employer] Powerplant Mechanic Helper Name Role Phone Shyam Harvey MD Primary Care Provider [phone] Encounter Details Date Type Department Care Team (Late st Contact Info) Description 12/23/2019 1:30 PM EDT Office [place] [phone] Winter Harman APRN [facility] [place] [address] SDH (subdural hematoma) Social History Tobacco Use Types Packs/Day Years [...] on file documented as of this encounter Last Filed Vital Signs Vital Sign Reading Time Taken Comments Blood Pressure 126/62 12/23/2019 12:45 PM EDT Pulse 68 12/23/2019 12:45 PM EDT Temperature - - Respiratory Rate - - Oxygen Saturation - - Inhaled Oxygen Concentration - - Weight 83 kg (183 lb) 12/23/2019 12:45 PM EDT Height 175.3 cm (5' 9) 12/23/2019 12:45 PM EDT Body Mass Index 27.02 12/23/2019 12:45 PM EDT documented in this encounter Patient Instructions * Patient Instructions* Winter Harman APRN - 12/23/2019 1:30 PM EDT Taper off Depakote from 3 tablets 3 times a day to 2 tablets three times a day for 5 days and then 1 tablet three times a day for 5 days. Then 2 tablets a day for 5 days. If you have any questions please call us at [phone]. documented in this encounter Progress Notes * Winter Harman APRN - 12/23/2019 1:30 PM EDT Name: Josue Westbrook : 1945 PCP: Shyam Harvey MD REF: Shyam Harvey Date of Service: 12/23/2019 CHIEF COMPLAINT Follow up s/p: 11/02/19: LEFT SEPs 11/03/19: LEFT subdural drain ?? Addy Machado MD: 11/10/19 LEFT elsy hole x2 ?? 11/03/2019: LEFT MMA embolization 11/14/19 Dural AVF embolization HISTORY OF PRESENT ILLNESS This is a??74 y.o.??male??with PMH of HTN, HLD, and DM is seen in follow up of left SDH. Briefly, he presented to the ED at an OSH on 11/01/19 after having an outpatient CT scan with finding of large LEFT sided, mixed attenuation SDH. ??The patient had presented to his PCP with a 2-3 week history ofprogressively worsening RIGHT upper and lower extremity weakness and periods of confusion where he felt like he was losing time. ??He was also noted on exam to have a RIGHT facial droop. He underwent drainage of the left SDH by both bedside drainage (11/03/19) and elsy hole drainage (11/10/19) and then underwent MMA embolization with Dr. Christianson and Dural AVF embolization. He was discharged to [facility]. Mr. Westbrook returns in good spirits today and reports doing very well. He was discharged from rehab on 11/28/19. He has continued to work with PT and OT on outpatient basis. He denies headaches, balanceproblems, lightheadedness, vision, hearing changes. He notices feeling more fatigued than usual; notices some occasional difficulty with recall. Reports resolution in previous R sided weakness. PAST MEDICAL HISTORY Patient Active Problem List Diagnosis Code ??? Basal cell carcinoma C44.91 ??? Tinea pedis B35.3 ??? SDH (subdural hematoma) S06.5X9A ??? Brain compression G93.5 Past Medical History: Diagnosis Date ??? Diabetes mellitus ??? Hypertension Past Surgical History: Procedure Laterality Date ??? IR EMBOLIZATION INTRACRANIAL 11/14/2019 IR Embolization Intracranial 11/14/2019 Hussain Christianson MD [facility] INTERVENTIONL RAD ??? PRO ELSY HOLE EVAC SUBDUR/EXTRA HEMATOMA Left 11/10/2019 @CRANI-SUB\EXTRADURAL HEMATOMA EVAC, ELSY HOLE (WRVU 17.07) performed by Addy Machado MD at [facility] MAIN OR ??? PRO PERM OCCLUSION/EMBOLIZATION, PERCUT, BURIAL VAULT MAKER N/A 11/03/2019 @TRANSCATHETER OCCLUSION/EMBOLIZATION FOR TUMOR DESTRUCTION performed by Hussain Christianson MD at [facility] ??? PRO PERM OCCLUSION/EMBOLIZATION, PERCUT, BURIAL VAULT MAKER N/A 11/14/2019 @TRANSCATHETER OCCLUSION/EMBOLIZATION FOR TUMOR DESTRUCTION performed by Hussain Christianson MD at [facility] ??? TONSILLECTOMY ALLERGIES No Known Allergies MEDICATIONS Current Outpatient Medications: ??? magnesium 250 mg Tablet, Take by mouth., Disp: , Rfl: ??? ascorbic acid, vitamin C, (Vitamin C) 100 mg Tablet, Take 100 mg by mouth daily., Disp: , Rfl: ??? cholecalciferol, Vitamin D3, (cholecalciferol, Vitamin D3,) 50 mcg (2,000 unit) Capsule, Take by mouth., Disp: , Rfl: ??? acetaminophen (Tylenol) 325 mg Tablet, Take 2 tablets by mouth every 4 hours as needed for Pain., Disp: 30 tablet, Rfl: 1 ??? divalproex EC (Depakote) 250 mg Tablet, Delayed Release (E.C.), Take 3 tablets by mouth 3 timesdaily., Disp: , Rfl: ??? melatonin 3 mg Tablet, Take 1 tablet by mouth nightly., Disp: , Rfl: ??? lisinopriL (Prinivil;Zestril) 5 mg Tablet, Take 5 mg by mouth daily., Disp: , Rfl: ??? metFORMIN (GLUCOPHAGE) 1,000 mg Tablet, Take 1,000 mg by mouth 2 times daily (with meals)., Disp: , Rfl: SOCIAL HISTORY Social History Socioeconomic History ??? Marital status: Spouse name: Not on file ??? Number of children: Not on file ??? Years of education: Not on file ??? Highest education level: Not on file Occupational History ??? Not on file Social Needs ??? Financial resource strain: Not on file ??? Food insecurity Worry: Not on file Inability: Not on file ??? Transportation needs Medical: Not on file Non-medical: Not on file Tobacco Use ??? Smoking status: Former Smoker Packs/day: 1.00 Years: 50.00 Pack years: 50.00 Types: Cigarettes Quit date: 2002 Years since quittin.6 ??? Smokeless tobacco: Never Used Substance and Sexual Activity ??? Alcohol use: Yes Comment: rare ??? Drug use: Not on file ??? Sexual activity: Not on file Lifestyle ??? Physical activity Days per week: Not on file Minutes per session: Not on file ??? Stress: Not on file Relationships ??? Social connections Talks on phone: Not on file Gets together: Not on file Attends jain service: Not on file Active member of club or organization: Not on file Attends meetings of clubs or organizations: Not on file Relationship status: Not on file ??? Intimate partner violence Fear of current or ex partner: Not on file Emotionally abused: Not on file Physically abused: Not on file Forced sexual activity: Not on file Other Topics Concern ??? Do You live alone? Not Asked ??? Tobacco in Home Not Asked Social History Narrative ??? Not on file FAMILY HISTORY History reviewed. No pertinent family history. REVIEW OF SYSTEMS General: Denies recent fever, chills, or weight changes. Eyes: Denies recent changes in vision. ENT: Denies recent changes in hearing or dysphagia. Cardiovascular: Denies CP, palpitations, or irregular heart beat. Respiratory: Denies SOB, cough, or recent respiratory infections. GI: Denies N/V/D/C or change in appetite. : Denies changes in urination; frequency, urgency or burning. Musculoskeletal: Denies weakness, numbness, or tingling in extremities. Heme: Denies recent or history of bleeding or clotting disorder. Neuro: Denies recent changes in mentation, memory, or behavior. PHYSICAL EXAM BP 126/62 Pulse 68 Ht 175.3 cm (5' 9) Wt 83 kg (183 lb) BMI 27.02 kg/m?? Constitutional: Well developed, well nourished, in NAD. ENT: Clear, hearing intact to limited bedside testing. Cardiovascular: Regular rate, rhythm, no murmur. Respiratory: Clear to auscultation all doty. GI: Normal bowel sounds. Abdomen soft, non tender. Neuro: Mental Status/Cognitive: Awake, alert, answers questions appropriately. Cranial Nerves: CN II - Vision grossly intact, PERRLA CN III, IV, - EOMI CN V - V1-3 dermatomes intact to light touch CN VII - No facial asymmetry CN VIII - Hearing intact to limited bedside exam CN IX, X - Uvula midline (N/A) CN XI - Shoulder shrug 5/5 bilaterally CN XII - Tongue midline (N/A) Motor: Normal muscle bulk and tone. No pronator drift. Strength 5/5 throughout all muscle groups inall four extremities. Sensory: Sensation grossly intact to light touch in all four extremities. Cerebellar: No dysmetria with finger to nose testing bilaterally Gait: Steady unassisted ASSESSMENT & PLAN 74 y.o.??male??with PMH of HTN, HLD, and DM returns in follow up sp drainage (bedside and burrhole)of large left SDH. After he was presented to OSH with progressively worsening RIGHT sided weakness found to have a large LEFT frontal/parietal mixed attenuation SDH. 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 Procedures: (11/03/19) and elsy hole drainage (11/10/19) as well as MMA embolization and Dural AVF embolization with Dr. Christianson. He was discharged to [facility] from . He is doing well since returning home from rehab. Has continued to work with PT and OT on outpatient basis. Doing very well and denies headaches, balance problems, seizure, vision, hearing changes, sensory or motor deficits. He does feel more tired than usual with occasional problems with recall. We discussed plan to taper off Depakote over a 2-3 week period. He is enrolled in D MME trial so the NIH scale material is below. Plan: Follow up [address] [facility] Middle Meningeal Embolization Trial Follow-up NIHSS 1.a. Level of consciousness: 0 0-Alert 1-Not alert, but arousable with minimal stimulation 2-Not alert, requires repeat stimulation to attend 3-Coma 1.b. Ask patient the month and their age: 0 0-Answers both correctly 1-Answers one correctly 2-Both incorrect 1.c. Ask patient to open and close eyes: 0 0-Obeys both correctly 1-Obeys one correctly 2-Both incorrect 2. Best gaze (horizontal eye movement): 0 0-Normal 1-Partial gaze palsy 2-Forced deviation 3. Visual field testing: (Not assessed) 0-No visual field loss 1-Partial hemianopia 2-Complete hemianopia 3-Bilateral hemianopia (blind including cortical blindness) 4. Facial paresis (Ask patient to show teeth or raise eyebrows and close eyes tightly): 0 0-Normal symmetrical movement 1-Minor paralysis (flattened nasolabial fold, asymmetry on smiling) 2-Partial paralysis (total or near paralysis of lower face) 3-Complete paralysis of one or both sides (absence of facial movement in the upper and lower face) 5. Motor function right arm: 0 0-Normal (extends arm 90 degrees for 10 seconds without drift) 1-Drift 2-Some effort against gravity 3-No effort against gravity 4-No movement 9-Untestable (Joint fused or limb amputated) 5. Motor function- left arm: 0 0-Normal (extends arm 90 degrees for 10 seconds without drift) 1-Drift 2-Some effort against gravity 3-No effort against gravity (but baseline) 4-No movement 9-Untestable (Joint fused or limb amputated) 6. Motor function right le 0-Normal (extends leg 30 degrees for 5 seconds without drift) 1-Drift 2-Some effort against gravity 3-No effort against gravity 4-No movement 9-Untestable (Joint fused or limb amputated) 6. Motor function-left le 0-Normal (extends leg 30 degrees for 5 seconds without drift) 1-Drift 2-Some effort against gravity 3-No effort against gravity 4-No movement 9-Untestable (Joint fused or limb amputated) 7. Limb ataxia: 0 0-No ataxia 1-Present in one limb 2-Present in two limbs 8. Sensory (Use pinprick to test arms, legs, trunk and face compare side to side): 0-Normal 1-Mild to moderate decrease in sensation 2-Severe to total sensory loss 9. Best language (describe picture, name items, read sentences): 0 0-No aphasia 1-Mild to moderate aphasia 2-Severe aphasia 3-Mute 10. Dysarthria (read several words): 0-Normal articulation 0 1-Mild to moderate slurring of words 2-Near unintelligible or unable to speak 9-Intubated or other physical barrier 11. Extinction and inattention: 0 0-Normal 1-Inattention or extinction to bilateral simultaneous in one of the sensory modalities 2-Severe aspen-inattention or aspen-inattention to more than one modality TOTAL SCORE: 0 (several doty not assessed) Modified [place] Scale (mRS) 0 - No symptoms. 1 - No significant disability. Able to carry out all usual activities, despite some symptoms. 2 - Slight disability. Able to look after own affairs without assistance, but unable to carry out all previous activities. 3 - Moderate disability. Requires some help, but able to walk unassisted. 4 - Moderately severe disability. Unable to attend to own bodily needs without assistance, and unable to walk unassisted. 5 - Severe disability. Requires constant nursing care and attention, bedridden, incontinent. 6 - . *Bold score 0 Has treatment of subdural improved your quality of life? Y / N Winter Harman documented in this encounter Plan of Treatment Not on file documented as of this encounter Visit Diagnoses Diagnosis SDH (subdural hematoma) Subdural hemorrhage documented in this encounter Care Teams [employer] Power[employer] Mechanic Helper Relationship Specialty Start Date End Date Shyam Harvey MD PCP - General General Internal Medicine 02/09/18 9 documented as of this encounter
--- OUTSIDE RECORDS SUMMARY | 2023-12-15 18:09 | XMS_ITS | Encounter Summary ---
Author Organization [facility] Address [facility] [place] [address] Care Team Providers Care Catering Sales Manager Name Role Phone Shyam Harvey MD Primary Care Provider [phone] Reason for Referral * Consultation (Routine) - Closed Specialty Diagnoses / Procedures Referred By Contac t Referred To Contact Neurology Diagnoses SDH (subdural hematoma) Ade Love APRN [facility] [place] [address] [facility] Neurology [address] [place] [address] Referral ID Status Reason Start Date Expiration Date V isits Requested Visits Authorized [id number] Closed Consult, Test & Treat 11/16/2019 11/15/2020 1 1 * Diagnostic Test (Routine) - Closed Specialty Diagnoses / Procedures Referred By Contac t Referred To Contact Radiology Diagnoses SDH (subdural hematoma) Procedures CT Head wo Contrast (Generic) Sheron Loya PA [facility] [place] [address] [facility] [place] [address] Referral ID Status Reason Start Date Expiration Date V isits Requested Visits Authorized [id number] Closed Specialty Service Requested 11/16/2019 05/18/2021 1 1 Reason for Visit * Reason Comments Hospital Transfer SDH * Auth/Cert Specialty Diagnoses / Procedures Referred By Contac t Referred To Contact Diagnoses Subdural hemorrhage SDH (subdural hematoma) SDH WITH MIDLINE SHIFT Procedures EMERGENCY IPI Referral ID Status Reason Start Date Expiration Date Visits Re quested Visits Authorized [id number] 1 1 Encounter Details Date Type Department Care Team (Latest Contact Info) Description 11/01/2019 6:59 PM EDT - 11/16/2019 6:10 PM EDT Hospital Encounter [facility] [place] [address] Camila Troy MD [facility] [place] [address] Casey Singh MD [facility] [place] [address] Subdural hemorrhage; SDH (subdural hematoma) Discharge Disposition: Rehab Center in a Facility Social History Tobacco Use Types Packs/Day Years Used Date Smoking Tobacco: Former Cigarettes 1 50 1 953 - 2002 Tobacco Cessation:Counseling Given: No Sex and Gender Information Value Date Recorded Sex Assigned at Not on file Gender Identity Not on file Sexual Orientation Not on file documented as of this encounter Last Filed Vital Signs Vital Sign Reading Time Taken Comments Blood Pressure 137/64 11/16/2019 4:00 PM EDT Pulse 62 11/16/2019 4:00 PM EDT Temperature 37.2 ??C (99 ??F) 11/16/2019 4:00 PM EDT Respiratory Rate 20 11/16/2019 4:00 PM EDT Oxygen Saturation 95% 11/16/2019 4:00 PM EDT Inhaled Oxygen Concentration - - Weight 85.4 kg (188 lb 4.4 oz) 11/16/2019 12:00 AM EDT Height 177.8 cm (5' 10) 11/02/2019 12:05 AM EDT Body Mass Index 27.01 11/03/2019 1:15 PM EDT documented in this encounter Discharge Summaries * Ade Love APRN - 11/16/2019 3:57 PM EDT Patient Name: Josue Nguyen Patient Age: 74 y.o. Admit date: 11/01/2019 Discharge Date and Time: 11/16/2019 Attending Physician: Casey Singh MD Discharging Provider: Ade Love APRN Discharging Service: NEUROSURGERY Operations/Major Procedures: Casey Singh MD: 11/02/19: LEFT SEPs 11/03/19: LEFT subdural drain Addy Banks MD: 11/10/19 LEFT pedro pablo hole x2 Interventional Radiology, Dr. Christianson: 11/03/2019: LEFT MMA embolization 11/14/19 Dural AVF embolization Active Hospital Problems: Active Hospital Problems Diagnosis ??? SDH (subdural hematoma) Resolved Hospital Problems No resolved problems to display. Active Non Hospital Problems: Active Non-Hospital Problems Diagnosis ??? Basal cell carcinoma ??? Tinea pedis History of Presentation: This is a 74 y.o. male with PMH of HTN, HLD, and DM who presented to the ED at [facility] after having anoutpatient CT scan that was found to have a large LEFT sided, mixed attenuation SDH. The patient had presented to his PCP with a 2-3 week history of progressively worsening RIGHT upper and lower extremity weakness and periods of confusion where he feels like he is losing time. He was also noted on exam to have a RIGHT facial droop. He denies any recent or remote falls. Denies headache, nausea, vomiting, numbness, paresthesias, LOC, difficulties with balance, visual or auditory symptoms. Denies bowel or bladder symptoms. No history of anticoagulation or antiplatelets. Hospital Course: The patient presented as above. He was admitted to the NSCU for close neurologic observation and further workup. He was connected to video EEG to evaluate for seizure. No seizures were captured during initial monitoring and it was later removed. He was maintained on Keppra but later switched to Depakote due to mood alteration and agitation. On 11/01 a bedside SEPS drain was placed. Drain had minimal output and head CT showed only minimal improvement in size of collection. The SEPS drain was therefore replaced with a bedside subdural drain. CT head post-drain placement showed reduction in SDH. Drain was later removed on 11/06 once outputsubsided. On 11/01, patient was taken to the Angio Suite for left middle meningeal artery embolization by Dr. Christianson. middle meningeal artery embolization. 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 On 11/13, patient was taken back to the Angio Suite for successful gregory embolization of dAVF. A repeat head CT showed slight increase in SDH collection on the left. Decision was made to take patient to the OR for left-sided pedro pablo holes for surgical evacuation, after unsuccessful beside drainage. He underwent crani- for pedro pablo holes on 11/[address] Banks. Procedure was well tolerated. Drain was removed on 11/12. He had intermittent episodes of aphasia and dysarthria concerning for seizure. He was placed back on video EEG but was unable to tolerate due to an episode of aggression provoked by PTSD. Symptoms improved and he was maintained on Depakote. He was evaluated by rehab therapies. He is now felt stable for discharge to acute rehab. On day of discharge patient is afebrile, tolerating a regular diet, ambulating with assistance and managing pain with oral medications. Patient does NOT have any COVID-19 symptoms. He has had NO exposure to positive patients and NO recent travel. Important Studies and Lab Data: Labs: Recent Results (from the past 24 hour(s)) POCT Glucose Result Value Ref Range POC Glucose 114 65 - 199 mg/dL Valproic Acid Level, Total Result Value Ref Range Valproic Lvl 43 mg/L POCT Glucose Result Value Ref Range POC Glucose 111 65 - 199 mg/dL POCT Glucose Result Value Ref Range POC Glucose 109 65 - 199 mg/dL POCT Glucose Result Value Ref Range POC Glucose 104 65 - 199 mg/dL Studies: Ct Head Wo Contrast (generic) Result Date: 11/15/2019 EXAMINATION: CT HEAD WO CONTRAST (GENERIC) CLINICAL HISTORY: Altered mental status. Pronator Drift,slurred speech TECHNIQUE: CT head performed without intravenous contrast administration. COMPARISON: None FINDINGS: Mixed density left frontal subdural hematoma is stable in size and density. Small amount of air within the collection is again seen in addition to a few flecks of bone, presumably related to the left-sided craniotomy pedro pablo holes. Local mass effect is stable with unchanged ehjp-cj-[id number] midline shift of 4 mm. The basal cisterns remain patent. No new intracranial hemorrhage, mass, hydrocephalus, or evidence of large acute infarction. The osseous structures are stable. Embolization m aterial is again seen in the region of the left transverse sinus. No significant interval change. Thank you for letting us participate in the care of this patient. For questions regarding this report, please contact the number below. Ct Head Wo Contrast (generic) Result Date: 11/11/2019 EXAMINATION: CT HEAD WO CONTRAST (GENERIC) CLINICAL HISTORY: Subdural hematoma change in exam TECHNIQUE: CT head performed without intravenous contrast administration. COMPARISON: CT head 11/09/2019 FINDINGS: Mixed attenuation left subdural collection has decreased in size now measuring 13 mm in thecoronal plane. Minimal decrease in rightward midline shift. Cerebellar tonsils are normal in position. Left-sided craniotomy is unchanged. No new sites of hemorrhage.. Expected evolution of the left subdural collection with mild decrease in mass effect. Thank you forletting us participate in the care of this patient. For questions regarding this report, please contact the number below. Ct Head Wo Contrast (generic) Result Date: 11/09/2019 EXAMINATION: CT HEAD WO CONTRAST (GENERIC) CLINICAL HISTORY: Altered mental status; Subdural hemorrhage, follow-up TECHNIQUE: CT head performed without intravenous contrast administration. COMPARISON: 11/05/2019 CT head FINDINGS: The left frontal approach EVD has been removed. Mildly increased nondependent pneumocephalus and size of the heterogeneous subdural collection overlying the left frontal convexity, which measures up to 21 mm, previously 19 mm. Subarachnoid hemorrhage within the underlying frontal lobe sulci is grossly unchanged. There is similar mass effect on the left cerebral convexity with grossly stable resulting left left right midline shift of 8 mm, previously 7 mm. No uncal herniation. No new foci of parenchymal hemorrhage or extra-axial collection. Ann-white differentiation is preserved. Ventricles are stable in size. Basal cisterns are patent. Very slight interval increase in size of the left frontal subdural hemorrhage, now 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 Grossly stable [id number] midline shift. I have personally reviewed theimage(s) and the resident's interpretation and agree with the findings, Myrtle Rowan at 11/09/2019 2:50 AM Thank you for letting us participate in the care of this patient. For questions regarding thisreport, please contact the number below. Electronically signed by: Myrtle Rowan [facility] ([phone]), at 11/09/2019 2:[address] Head Wo Contrast (generic) Result Date: 11/05/2019 EXAMINATION: CT HEAD WO CONTRAST (GENERIC) CLINICAL HISTORY: Headache, intracranial hemorrhage suspected recurrent of mild L sided weakness, surveillance of f/u L SDH TECHNIQUE: CT head performed without intravenous contrast administration. COMPARISON: Prior head CTs, most recent from November 04, 2019FINDINGS: The left frontal approach SEPS drain remains in place. There is been no interval change in size of the left subdural collection. The thin subdural hemorrhage along the posterior falx and tentorium is also unchanged. Minimally decreased volume of the previously seen subarachnoid hemorrhagewithin the left frontal cerebral sulci. There is unchanged mass effect predominantly on the left frontal convexity with grossly stable 7 to 8 mm [id number]-[id number] midline shift. The suprasellar and basalcisterns remain patent. No new parenchymal hemorrhage or enlarging extra-axial collection. Ann-white differentiation is preserved. Stable examination with no interval change in size of the left subdural hematoma or associated masseffect. Thank you for letting us participate in the care of this patient. For questions regarding this report, please contact the number below. Electronically signed by: Myrtle Rowan [facility] ([phone]), at 11/05/2019 4:[address] Head Wo Contrast (generic) Result Date: 11/04/2019 EXAMINATION: CT HEAD WO CONTRAST (GENERIC) CLINICAL HISTORY: Subdural hemorrhage, follow-up TECHNIQUE: CT head performed without intravenous contrast administration. COMPARISON: Head CT from October FINDINGS: The left frontal approach sepsis drain remains in place. There has been some interval decrease in size of the left subdural collection, which now measures up to 1.9 cm, previously 2.6 cm in maximal width. Thin subdural hemorrhage layering along the posterior falx and left tentorium is unchanged. Trace subarachnoid hemorrhage within the left frontal lobe sulci is also unchanged. Minimally decreased mass effect on the left cerebral convexity with 8 mm left to right midline shift, 10 mm. No transtentorial herniation. No evidence of acute infarct. Decreased size of the left subdural hemorrhage, with associated decreased left to right midline shift currently measuring 8 mm previously 10 mm. Thank you for letting us participate in the care of this patient. For questions regarding this report, please contact the number below. Electronically signed by: Myrtle Rowan [facility] ([phone]), at 11/04/2019 6:[address] Head Wo Contrast (generic) Result Date: 11/02/2019 EXAMINATION: CT HEAD WO CONTRAST (GENERIC) CLINICAL HISTORY: Headache, intracranial hemorrhage suspected s/p SEPS drain insertion TECHNIQUE: CT head performed without intravenous contrast administration. COMPARISON: Head CT from 1356 hours, 11/01/2019 FINDINGS: There is been interval placement of a left frontal approach SEPS with tip within the heterogeneous left holohemispheric subdural hemorrhage. Overall size of the subdural hemorrhage is minimally decreased from prior study, with collection measuring approximately 2.7 cm, previously 3.1 cm. There has been some interval redistribution of the hyperdense components within the heterogeneous collection. There are new serpiginous hyperdensities within the underlying left frontal lobe also along the parasagittal sulci, compatible with trace subarachnoid hemorrhage. Trace hemorrhage layering along the posterior falx and tentorium is again noted. Overall mass effect on the left cerebral convexity is not significantly changed, with grossly unchanged 10 mm left to right midline shift. No uncal herniation. Partial effacement of the left lateral ventricle. The suprasellar and basal cisterns are patent. Ann-white differentiation is normal. Minimally decreased size of the left holohemispheric subdural hemorrhage, but with unchanged 10 mm left to right midline shift. No uncal herniation. This represents a change from the preliminary report. Changes and final impression discussed with Maty Mcfadden APRN by Dr. Murry on 11/02/2019 at 1055 PM . I have personally reviewed the image(s) and the resident's interpretation and agree with the findings, Myrtle Rowan at 11/02/2019 11:39 PM Thank you for letting us participate in the care of this patient. For questions regarding this report, please contact the number below. Electronically signed by: Myrtle Rowan [facility] ([phone]), at 11/02/2019 11:39 PM Film Library- Storage Only Ct Head Result Date: 11/01/2019 This exam is auto-finalizing. It's purpose is for storage only. Film Library- Storage Only Dx Chest Result Date: 11/01/2019 This exam is auto-finalizing. It's purpose is for storage only. Scan Doc: Diagnostic Radiology Result Date: 11/01/2019 Ordered by an unspecified provider. Ir Embolization Middle Meningeal Artery Unilateral Result Date: 11/10/2019 EXAMINATION: IR EMBOLIZATION MIDDLE MENINGEAL ARTERY UNILATERAL CLINICAL HISTORY: LEFT subdural hematoma OPERATORS: Attending physician: Hussain Christianson MD Resident physician: Amor Singletary DO PROCEDURE: 1. Cerebral angiogram 2. Left middle meningeal artery embolization 3. Mynx closure of femoral arteriotomy ANESTHESIA: General endotracheal anesthesia EBL: <50 ml CONTRAST: 100 mL Visipaque-320. RADIATION EXPOSURE: A-plane 570.5 mGy, B-plane 398.1 mGy MATERIALS: Micropuncture set, .035 3J guidewire,.035angle-tipped hydrophilic guidewire, 5 Fr Glidesheath, 5 Fr Envoy MPC guide catheter, [employer] NB Advantage 5 Fr STEVO selective catheter, [place] SL-10 microcatheter, Synchro2 microwire, 250 micron Embozene- 1 vial, 6 Belgian Angio-Seal. DESCRIPTION: The procedure, its risks and benefits were discussed with the patient and written informed consent was obtained. The patient was brought to the angiography suite and received moderate sedation. The right groin was sterilely prepped anddraped. The right femoral artery was accessed using the micropuncture set and the 5 Fr sheath placed. The guide catheter was placed in the descending aorta, double- flushed, and connected to continuous heparinized saline infusion. The catheter was placed in the left internal carotid artery using roadmap guidance and the hydrophilic guidewire. Biplane cerebral angiogram was performed. The catheter w as then placed in the right external carotid artery and biplane angiogram performed. The guide catheter was directed to the left external carotid artery. The microcatheter was advanced to the left middle meningeal artery using roadmap guidance and the microwire. Hand-injected microcatheter angiogram was performed. The microcatheter was advanced to the frontal division of the left medial meningealartery. The artery was embolized using 250 micron Embozene particles. Stasis was confirmed with hand-injected microcatheter injection. The microcatheter was removed. Post-embolization angiogram of the left common carotid artery was performed. The guide catheter was removed The 5 Belgian Kalyan catheter was then placed in the descending aorta, flushed, and connected to a continuous heparinized saline infusion. This catheter was sequentially directed to the right internal carotid, right external carotid, right vertebral, and left vertebral arteries. Biplane cerebral angiograms were obtained from each position. The catheter was removed. Sheath was removed. Femoral artery roadmap was performed. The 5 Fr Mynx closure device was used to achieve hemostasis. The patient tolerated the procedure well. No immediate complications FINDINGS: LEFT COMMON CAROTID ARTERY ROADMAP INJECTION: Common carotid, internal and external carotid are normal in appearance without focal narrowing. LEFT INTERNAL CAROTID ARTERY INJECTION: There is mass effect over the left cerebral convexity, consistent with the known subdural hematoma. The ICA and its branches are of normal course and caliber. There is opacification of the ophthalmic artery and presence of a choroidal blush. LEFT EXTERNAL CAROTID ARTERY INJECTION: There are two small foci of prominent contrast blush or even extravasation from branches of the frontoparietal branch of the left middle meningeal artery. There is rapid arteriovenous shunting from a fistula along the lateral aspect of the left occipital lobe. Arterial supply is primarily from the occipital artery, through numerous small branches to a cortical vein that drains cephalad to the superior sagittal sinus and to the left vein of Michael. There is only mild stenosis in the draining veins. Left MIDDLE MENINGEAL ARTERY INJECTION: There is also supply from the squamous branch of the left middle meningeal artery to the arteriovenous fistula. The site of prominent blush/extravasation from the frontoparietal branches of the middle meningeal artery is again demonstrated. No communication to the orbit or ophthalmic artery is evident. LEFT FRONTOPARIETAL BRANCH OF THE MIDDLE MENINGEALARTERY INJECTION: No communication to the orbit or ophthalmic artery is evident there is occlusion of this branch after the administration of the particles. LEFT EXTERNAL CAROTID ARTERY INJECTION (POST EMBOLIZATION): There is occlusion of the frontoparietal branches of the middle meningeal artery. The squamosal branch with opacification of the dural fistula is unchanged. Choroidal blush remains present LEFT COMMON CAROTID ARTERY INJECTION (POST EMBOLIZATION): The internal carotid artery and itsbranches are unchanged in course and caliber. RIGHT CAROTID ROADMAP: The carotid bifurcation is of normal appearance without focal stenosis RIGHT INTERNAL CAROTID ARTERY INJECTION: The ICA and its branches are of normal course and caliber. There is no supply to the arteriovenous fistula. RIGHT EXTERNAL CAROTID ARTERY INJECTION: External carotid and branches are normal in appearance. There is no supply to the arteriovenous fistula. RIGHT FEMORAL ARTERY ROADMAP: The right common femoral artery iswithout stenosis. Right vertebral artery injection: The vertebral artery and its branches are of normal course and caliber with the exception of mild atherosclerotic irregularity of the basilar artery. There is little reflux to the left vertebral artery and no opacification of the arteriovenous fistula. Left vertebral artery injection: The left vertebral artery is of normal appearance. There is only a small segment beyond the posterior inferior cerebellar artery. There is no opacification of the arteriovenous fistula 1. Focal prominent dural blush versus active extravasation from branches of the left middle meningeal artery. 2. Particle embolization of the frontoparietal branch to the of the left middle meningealartery. 3. 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 For questions regarding this report, please contact the number below. Electronically signed by: Hussain Christianson [facility] ([phone]), at 11/10/2019 10:28 AM Pending Studies and Lab Data: None Discharge Condition: Stable Discharge to: [facility] Reh Future Appointments and Orders Future Orders Complete By Expires CT Head wo Contrast (Generic) [GRF885 Custom] 12/17/2019 02/16/2020 Process Instructions: Scheduling Instructions: Questions: Clinical information / rai questions: follow-up Left side SDH Do you want to report a missing reason for exam?: Where will study be performed?: [facility] Radiology Stat read required?: Does patient require sedation?: GA rationale: Date of injury if applicable: Referral to Neurology [REF46 Custom] As directed Process Instructions: If no progress note charted, please enter Clinical details in comments. Scheduling Instructions: Questions: My question or request is: AED management s/p subdural hematoma Discharge Medications: Your Medications New Medications Dose Details acetaminophen 325 mg Tab Commonly known as: Tylenol Take 2 tablets by mouth every 4 hours as needed for Pain. 650 mg Quantity: 30 tablet Refills: 1 divalproex EC 250 mg Tbec Commonly known as: Depakote Take 3 tablets by mouth 3 times daily. 750 mg Quantity: Refills: 0 melatonin 3 mg Tab Take 1 tablet by mouth nightly. 3 mg Quantity: Refills: 0 Continued medications, unchanged Dose Details lisinopriL 5 mg Tab Commonly known as: Prinivil;Zestril Take 5 mg by mouth daily. 5 mg Refills: 0 metFORMIN 1,000 mg Tab Commonly known as: GLUCOPHAGE Take 1,000 mg by mouth 2 times daily (with meals). 1,000 mg Refills: 0 STOPPED Medications CIS FREE TEXT MED ibuprofen 800 mg Tab Commonly known as: Advil;Motrin Updated Allergies/ADRs: No Known Allergies Follow-up Recommendations for Providers: See below Outpatient referrals: You have been referred to the following clinics for outpatient follow-up. Please call the office ifyou have not received an appointment in the mail within 1 week of discharge from the hospital. Neurology [phone] Instructions Given to Patient at Discharge: Patient Instructions SURGERY FOR HEAD INJURY DISCHARGE INSTRUCTIONS PRESCRIPTION INSTRUCTIONS: Please see the medication reconciliation list on this discharge summary for a current list of your medications. Stop the use of blood thinning medications until instructed otherwise by your surgical team. This includes medications known as antiplatelet, anticoagulant, and non-steroidal anti-inflammatory (NSAIDs) drugs. Common xyob-dzo-qspecrh medications which should be avoided include Aspirin, ibuprofen, and naproxen among others. These medications are sometimes combined with other drugs or are sold undera trade name. Common prescription medications which should be avoided include Plavix (clopidogrel) and Coumadin (warfarin) among others. DVT chemoprophylaxis is safe at this time. The following medications are commonly prescribed after surgery. An [x] indicates that these medications have been prescribed for you. [x] Antiepileptics - seizure prophylaxis: Valproate Antiepileptics are commonly prescribed after surgery to prevent seizures. Take the medication as directed. At your follow-up appointment with Neurosurgery, ask how long you need to continue taking this medication. If you have difficulty affording this medication please contact us for prescription assistance. WHEN TO SEEK MEDICAL CARE: Signs or symptoms of an infection: - Fever over 101F - Redness, swelling, or increasing pain around your incision - Drainage of pus, blood, or clear fluid from your incision New neurologic symptoms: - Worsening headaches not controlled with your pain medication - Drowsiness, confusion, and lethargy - Visual changes - Difficulty speaking or slurred speech - Facial droop - New weakness or sensory changes - New unsteadiness when walking - Seizures Constipation not relieved by diet and over the counter stool softeners and laxatives Nausea/vomiting (upset stomach) not controlled with your anti-nausea medication Symptoms of a deep venous thrombosis (DVT) or pulmonary embolism (PE): - Swelling/warmth/redness of the leg - Pain in the leg, which can be worse with standing or walking - Chest pain or shortness of breath To help prevent a DVT: - Exercise regularly. Walking, at least several times daily, is helpful. - Ankle pump exercises (like pressing and releasing the gas pedal) should be done regularly. - Keep hydrated with water or other clear liquids (coffee/tea/cola can dehydrate you). - Avoid alcohol and crossing your legs. - Remember not to sit or lay in bed, while awake, for prolonged amounts of time. WOUND CARE: - Keep incisional site clean and dry. You can remove your dressing 2 days after surgery, if not removed prior to your discharge. - You may shower and shampoo incisional site, per your usual routine, 4 days after surgery. - Sutures/roberto will need to be removed 10-14 days after surgery. See follow- up appointments below. DIET: - You may resume your usual diet. - A well-balanced diet is recommended for wound healing. - Prune juice or prunes can be added to your diet to assist with any constipation. ACTIVITY: - Avoid activities that are physically demanding or require a lot of concentration. They can make your symptoms worse and slow your recovery. - Avoid activities, such as contact or recreational sports, that could lead to a head injury. - When your health memory care director says you are well enough, return to your normal activities gradually, not all at once. - Talk with your health memory care director about when you can return to work. DRIVING: - Do NOT drive until cleared by Neurosurgery. FOLLOW UP PLAN: Incision: [x] Please follow up for suture/staple removal on/around November 23 with your Primary Care Provider or the Neurosurgery MANAGER DENTAL/RN. These may also be removed at rehab. Appointments: [x] Please follow up in the Neurosurgery Clinic in 4-6 weeks with a Neurosurgery Associate Provider. Please call the Neurosurgery Office at [phone] if you do not receive a scheduled appointment within two weeks. Imaging: [x] Head CT HOW TO REACH NEUROSURGERY Contact your Doctor Office Hours: Thursday through Thursday, 8am-5pm. Call . On weekends or after office hours: Call [phone] and ask the gluing machine operator automatic to page the Neurosurgery Resident clothes ironer. IMPORTANT PHONE NUMBERS: Outpatient Nurse (Stephanie Lopez) Inpatient Nurses Neurosurgical Resident On-Call (after 5pm or before 8am) Neurosurgery offices (Thursday through Thursday between 8am-5pm): Adult Neurosurgery Dr. Luis Carlos Carranza Pediatric Neurosurgery Dr. Graham Alonso Mid-level practitioners Graham Montalvo, Physician Washroom Cleaner Ab Pillai, Physician Washroom Cleaner Maty Mcfadden, Nurse Practitioner Amelie Schmidt, Nurse Practitioner * Your surgeon may not be l d rn, so be ready to tell about yourself and your surgery when you call, especially after hours or on the weekend. Ade Love APRN 11/16/2019 documented in this encounter Discharge Instructions * Patient Instructions* Ade Love APRN - 11/16/2019 3:17 PM EDT SURGERY FOR HEAD INJURY DISCHARGE INSTRUCTIONS PRESCRIPTION INSTRUCTIONS: Please see the medication reconciliation list on this discharge summary for a current list of your medications. Stop the use of blood thinning medications until instructed otherwise by your surgical team. This includes medications known as antiplatelet, anticoagulant, and non-steroidal anti-inflammatory (NSAIDs) drugs. Common gbwz-xtc-ayhayjj medications which should be avoided include Aspirin, ibuprofen, and naproxen among others. These medications are sometimes combined with other drugs or are sold undera trade name. Common prescription medications which should be avoided include Plavix (clopidogrel) and Coumadin (warfarin) among others. DVT chemoprophylaxis is safe at this time. The following medications are commonly prescribed after surgery. An [x] indicates that these medications have been prescribed for you. [x] Antiepileptics - seizure prophylaxis: Valproate Antiepileptics are commonly prescribed after surgery to prevent seizures. Take the medication as directed. At your follow-up appointment with Neurosurgery, ask how long you need to continue taking this medication. If you have difficulty affording this medication please contact us for prescription assistance. WHEN TO SEEK MEDICAL CARE: Signs or symptoms of an infection: - Fever over 101F - Redness, swelling, or increasing pain around your incision - Drainage of pus, blood, or clear fluid from your incision New neurologic symptoms: - Worsening headaches not controlled with your pain medication - Drowsiness, confusion, and lethargy - Visual changes - Difficulty speaking or slurred speech - Facial droop - New weakness or sensory changes - New unsteadiness when walking - Seizures Constipation not relieved by diet and over the counter stool softeners and laxatives Nausea/vomiting (upset stomach) not controlled with your anti-nausea medication Symptoms of a deep venous thrombosis (DVT) or pulmonary embolism (PE): - Swelling/warmth/redness of the leg - Pain in the leg, which can be worse with standing or walking - Chest pain or shortness of breath To help prevent a DVT: - Exercise regularly. Walking, at least several times daily, is helpful. - Ankle pump exercises (like pressing and releasing the gas pedal) should be done regularly. - Keep hydrated with water or other clear liquids (coffee/tea/cola can dehydrate you). - Avoid alcohol and crossing your legs. - Remember not to sit or lay in bed, while awake, for prolonged amounts of time. WOUND CARE: - Keep incisional site clean and dry. You can remove your dressing 2 days after surgery, if not removed prior to your discharge. - You may shower and shampoo incisional site, per your usual routine, 4 days after surgery. - Sutures/roberto will need to be removed 10-14 days after surgery. See follow- up appointments below. DIET: - You may resume your usual diet. - A well-balanced diet is recommended for wound healing. - Prune juice or prunes can be added to your diet to assist with any constipation. ACTIVITY: - Avoid activities that are physically demanding or require a lot of concentration. They can make your symptoms worse and slow your recovery. - Avoid activities, such as contact or recreational sports, that could lead to a head injury. - When your health memory care director says you are well enough, return to your normal activities gradually, not all at once. - Talk with your health memory care director about when you can return to work. DRIVING: - Do NOT drive until cleared by Neurosurgery. FOLLOW UP PLAN: Incision: Please follow up for suture/staple removal on/around November 23 with your Primary Care Provider or the Neurosurgery MANAGER DENTAL/RN. These may also be removed at rehab. Appointments: 1) Please follow up in the Neurosurgery Clinic in 4-6 weeks with a Neurosurgery Associate Provider.Please call the Neurosurgery Office at [phone] if you do not receive a scheduled appointment within two weeks. You will have a head CT at this appointment. 2) Please follow up in outpatient Neurology Clinic in 4 weeks for management of your seizure medication. You will be contacted with an appointment. Please call their office with any questions or concerns at [phone]. documented in this encounter Medications at Time of Discharge Medication Sig Dispensed Refills Start Date End Date acetaminophen (Tylenol) 325 mg Tablet Take 2 [...] (with meals). documented as of this encounter Progress Notes * Kary Saeed RN - 11/16/2019 5:43 PM EDT Josue Nguyen discharged by transportation van. All belongings sent with patient. SWATHI removed, incision healing well, skin free from pressure ulcers. Discharge instructions, medications, and follow-up appointments reviewed, education provided on incision care and medications, paper prescriptions given to patient, all questions answered. Report called to RN at [facility]. [facility] paperwork faxed. Patient instructed to call with concerns. * Neelam Mccall - 11/16/2019 3:59 PM EDT Office of Care Management/Contract Administrator Patient Name: Josue Nguyen : 1945 Patient has been offered an acute rehab bed at [facility] for today, 11/16/19 [facility] arranged for a 1745 transport. Ambulance will need: Medicare ambulance form completed and signed (MD or Media Relations Specialist RN/PROFESSOR OF ENVIRONMENTAL SCIENCE) Copy of patient demographics [place] [facility] Hospital DNR/DNI order, if active Dr. Sevilla to admit Please call Nursing Report to , ask for commercial loan collection officer. Info to accompany patient: Narcotic Prescriptions Copies of Medication Administration Records and IV sheets for past 10 days. Plan: Contract Administrator will be available to the patient and Media Relations Specialist-RN and/or Social Workerfor further assistance. Patient will be discharged to: [facility] Neelam Mccall Contract Administrator * Syl Najera - 11/16/2019 2:20 PM EDT Nutrition Services Note - Low Nutrition Acuity Josue Nguyen is a 74 y.o. male Reason for intervention: follow up Nutrition Plan: Continue current diet. Monitor weight. Encourage good oral intake. Support and encouragement provided. Pt was engaged with other services at time of nutrition visit, production underwriter spoke with RN. Per RN report,pt had PO intake of 100% at breakfast and 75% of lunch today (11/15). Discussed case with Clinical Dietitian Active Orders Diet Carb Control diet 60/60/75 CHO counting level 2 Frequency: Effective Now Number of Occurrences: Until Specified Admit Weight: 86.18 kg Estimated body mass index is 27.01 kg/m?? as calculated from the following: Height as of 11/03/19: 177.8 cm (5' 10). Weight as of this encounter: 85.4 kg (188 lb 4.4 oz). Wt Readings from Last 5 Encounters: 11/16/19 85.4 kg (188 lb 4.4 oz) 11/03/19 86.9 kg (191 lb 9.3 oz) Weight loss: not clinically significant Appetite: Excellent (75%-100%) Food allergies:no known food allergies Chewing/Swallowing difficulty: none Nausea/Vomiting: no nausea and no vomiting Last Bowel Movement: 11/15/19 Patient education / questions: not appropriate for education Nutrition services to follow weekly through hospital course unless consulted in the interim. Syl Najera Pager: [phone] * Fariba Salas - 11/16/2019 12:45 PM EDTSummary: - System member information provided Office of Care Management-System Liaison Reviewed medical record and discussed with primary Media Relations Specialist, Chhaya Olivarez. Met with Josue Nguyen to discuss acute rehab level of care and provided specific information about [facility], which patient has been referred to for inpatient rehabilitation. Informed Josue Nguyen of referral review process that occurs. Discussed discharge disposition post rehab. Answered patient's questions. Patient aware of pending insurance authorization at time of this visit. Patient will be followed by primary wrapper caser for discuss all choices and options Provided my contact number if any further questions regarding rehab or specific facility Will continue to follow along with patient's primary wrapper caser. System Liaison will continue to assist with any discharge needs related to the above facility as needed. Fariba Salas RN BSN CRRN System Liaison Media Relations Specialist * Charlene Louis MD - 11/16/2019 3:52 AM EDT NEUROSURGERY PROGRESS NOTE ID: HD# 15 11/03/19 LEFT MMA embolization 11/03/19 LEFT subdural drain placement [SEPS removed] 11/02/19 LEFT SEPS placement 11/10/19 LEFT pedro pablo holes for SDH evacuation, Dr. Addy Banks 74 y.o. male with PMH of HTN, HLD, and DM with progressively worsening RIGHT sided weakness found to have a large LEFT frontal/parietal mixed attenuation SDH. 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 INTERVAL HX/ROS: -Neurology re-consulted for episodes suspicious for seizures -Following Depakote levels -No episodes of aphasia/dysarthria overnight -Feels better this morning MEDICATIONS: Scheduled Meds: ??? divalproex EC 750 mg Oral TID ??? senna-docusate 2 tablet Oral BID ??? busPIRone 7.5 mg Oral BID ??? melatonin 3 mg Oral Nightly ??? famotidine 40 mg Oral BID ??? lisinopriL 5 mg Oral Daily ??? insulin lispro 1-5 Units Subcutaneous TID AC Continuous Infusions: PRN Meds: oxyCODONE OR [DISCONTINUED] oxyCODONE, BUpivacaine-EPINEPHrine, gelatin compressed, thrombin (Bovine), calcium carbonate, polyethylene glycoL (MIRALAX) oral powder, bisacodyL, ondansetron OR ondansetron, acetaminophen OR acetaminophen, labetalol, hydrALAZINE, glucose 40% oral geL OR dextrose 10% OR glucagon (human recombinant) EXAM: Vitals: Temp: [36.3 ??C (97.3 ??F)-36.8 ??C (98.2 ??F)] Heart Rate: [54-68] Resp: [13-20] BP: (104-139)/(60-90) SpO2: [95 %-100 %] Heart Rate from SpO2: [54 bpm-69 bpm] BMI: Weight: 85.4 kg (188 lb 4.4 oz) (11/16/19 0000) BMI (Calculated): 27.49 BMI Classification: Over Weight I/O: I/O last 3 completed shifts: In: 181 [P.O.:960; I.V.:852] Out: 365 [Urine:3655] TRANG: out 11/12 Physical Exam: General:NAD, lying awake in bed Neurological: A&Ox3 Speech fluent and appropriate, mildly dysarthric due to lack of upper dentures, stable. Naming and repetition intact. PERRL. EOMI. Visual doty full to confrontation. No facial asymmetry Tongue midline Motor: RUE:5/5 LUE:5/5 RLE: 5/5; full strength but clumsy LLE: 5/5 No upper extremity drift. LT sensation intact x 4. Pedro Pablo hole sites c/d/i, closed with roberto LABS: Recent Labs 11/15/19 0136 11/14/19 0205 WBC 5.9 5.8 HGB 11.8* 12.9* PLATELET 235 261 Recent Labs 11/15/19 01311/14/19 0205 NA 138 140 K 4.2 4.2 CL 105 103 CO2 26 25 BUN 9* 14 CREATININE 0.92 1.03 No results for input(s): PT, INR in the last 72 hours. IMAGING: EXAMINATION: CT HEAD WO CONTRAST (GENERIC) IMPRESSION Expected evolution of the left subdural collection with mild decrease in mass effect. A/P: 74 y.o. male with PMH of HTN, HLD, and DM with progressively worsening RIGHT sided weakness found to have a large LEFT frontal/parietal mixed attenuation SDH. 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 His waxing and waning mental status on presentation raised concern for possible seizures and he was placed on video EEG without recorded seizure activity. He was again placed on video EEG on11/08/19 after episodic agitation and speech arrest. He was taken for pedro pablo holes for SDH drainage 11/09 and is neurologically better post-op, however now w bouts of agitation and expressive aphasia, stable this morning. CTH demonstrates a reduction in hematoma size. He is now s/p dAVF embolization. Having continued episodes of speech arrest/confusion/dysarthria for which Neurology was re-consulted. Problem list (for documentation betterment), addendum, Charlene Louis MD, 11/23/19, 11:29 AM) SDH Brain compression Possible seizures Plan: - Q4HNC - SBP<160 - Hold DVT ppx - Depakote 750mg TID > f/u neuro recommendations - F/u need for BIT/psych consultation - Neurology consult - Dispo to IPR when AEDs are sorted out DISPO: 5W FULL CODE PLEASE PAGE [id number] WITH QUESTIONS Active Hospital Problems Diagnosis ??? SDH (subdural hematoma) Resolved Hospital Problems No resolved problems to display. Active Non-Hospital Problems Diagnosis ??? Basal cell carcinoma ??? 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 Reports earlier episode of slurred speech while speaking on phone with friend earlier today. Also has peristent right hand clumsiness. No new neurologic events beyond these waxing/waning problems. Had some headache last evening, now resolved. Dural fistula partially treated with about 90% obliteration, return of normal flow in some corticalveins where it had been reversed. Since it may self-obliterate at this point, and he has had no related brain edema, I favor waiting for 3 months and then we can reassess with angiography and treat as needed. * Masoud Babcock MD - 11/15/2019 11:30 AM EDT NEUROSURGERY PROGRESS NOTE ID: HD# [id number] 11/03/19 LEFT MMA embolization 11/03/19 LEFT subdural drain placement [SEPS removed] 11/02/19 LEFT SEPS placement 11/10/19 LEFT pedro pablo holes for SDH evacuation, Dr. Addy Banks 74 y.o. male with PMH of HTN, HLD, and DM with progressively worsening RIGHT sided weakness found to have a large LEFT frontal/parietal mixed attenuation SDH. 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 INTERVAL HX/ROS: -Still having word finding difficulty intermittently associated with right hand clumsiness -Depakote subtherapeutic and dose increased MEDICATIONS: Scheduled Meds: ??? busPIRone 7.5 mg Oral BID ??? valproate sodium 500 mg Intravenous Q8H SKIP ??? melatonin 3 mg Oral Nightly ??? famotidine 40 mg Oral BID ??? lisinopriL 5 mg Oral Daily ??? sodium chloride 0.9 % (flush) 5 mL Intravenous BID ??? insulin lispro 1-5 Units Subcutaneous TID AC Continuous Infusions: ??? sodium chloride 0.9% infusion 100 mL/hr Intravenous Continuous ### PRN Meds: BUpivacaine-EPINEPHrine, gelatin compressed, thrombin (Bovine), oxyCODONE OR oxyCODONE, calcium carbonate, senna-docusate, polyethylene glycoL (MIRALAX) oral powder, bisacodyL, lidocaine, sodium chloride 0.9 % (flush), lidocaine, ondansetron OR ondansetron, acetaminophen OR mejia taminophen, labetalol, hydrALAZINE, glucose 40% oral geL OR dextrose 10% OR glucagon (humanrecombinant) EXAM: Vitals: Temp: [36.3 ??C (97.3 ??F)-37.1 ??C (98.8 ??F)] Heart Rate: [49-68] Resp: [9-20] BP: (99-151)/(44-92) SpO2: [94 %-100 %] Heart Rate from SpO2: [49 bpm-68 bpm] BMI: Weight: 83.6 kg (184 lb 4.9 oz) (11/03/19 2335) BMI (Calculated): 27.49 BMI Classification: Over Weight I/O: I/O last 3 completed shifts: In: 3383 [P.O.:720; I.V.:2663] Out: 3350 [Urine:3300; Blood:50] TRANG: out 11/12 Physical Exam: General:NAD, listening to calm radio with stress blocks in his hands Neurological: A&Ox3 Speech hesitant but appropriate, mildly dysarthric due to lack of upper dentures. Naming and repetition intact. PERRL. EOMI. Visual doty full to confrontation. No facial asymmetry Tongue midline Motor: RUE:5/5 LUE:5/5 RLE: 5/5; full strength but clumsy LLE: 5/5 No upper extremity drift. LT sensation intact x 4. Pedro Pablo hole sites c/d/i, closed with roberto LABS: Recent Labs 11/15/19 0136 11/14/19 0205 11/13/19 0203 WBC 5.9 5.8 6.3 HGB 11.8* 12.9* 12.9* PLATELET 235 261 250 Recent Labs 11/15/19 0136 11/14/19 0205 11/13/19 0203 NA 138 140 137 K 4.2 4.2 4.1 CL 105 103 103 CO2 26 25 24 BUN 9* 14 15 CREATININE 0.92 1.03 0.90 No results for input(s): PT, INR in the last 72 hours. IMAGING: EXAMINATION: CT HEAD WO CONTRAST (GENERIC) IMPRESSION Expected evolution of the left subdural collection with mild decrease in mass Effect. A/P: 74 y.o. male with PMH of HTN, HLD, and DM with progressively worsening RIGHT sided weakness found to have a large LEFT frontal/parietal mixed attenuation SDH. 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 His waxing and waning mental status on presentation raised concern for possible seizures and he was placed on video EEG without recorded seizure activity. He was again placed on video EEG on11/08/19 after episodic agitation and speech arrest. He was taken for pedro pablo holes for SDH drainage 11/09 and is neurologically better post-op, however now w bouts of agitation and expressive aphasia, stable this morning. CTH demonstrates a reduction in hematoma size. Keppra was switched to Valproate which is w/in therapeutic range. Started on Buspirone for panic attacks 11/13. Plan for dAVF embolization today. Plan: - Q4HNC - SBP<160 - Hold DVT ppx - Depakote 750mg TID - F/u need for BIT/psych consultation - Neurology consult for AED management DISPO: 5W FULL CODE PLEASE PAGE [id number] WITH QUESTIONS Active Hospital Problems Diagnosis ??? SDH (subdural hematoma) Resolved Hospital Problems No resolved problems to display. Active Non-Hospital Problems Diagnosis ??? Basal cell carcinoma ??? Tinea pedis Masoud Babcock MD 11/15/2019 * Belgica Goldsmith RN - 11/15/2019 5:44 AM EDT Problem: Patient Care Overview Goal: Plan of Care Review Outcome: Ongoing (Interventions Implemented as Appropriate) ? 11/15/19 0545 Coping/Psychosocial Plan Of Care Reviewed With patient Plan of Care Review Progress improving ?? OUTCOME EVALUATION NOTE: ?? OUTCOME SUMMARY: ?? Pt is A&O x4, able to follow commands on all 4 extremities, pleasant. Pain well controlled withPRN tylenol and oxy, rings appropriately for meds as needed. SB- NSR on the monitor, SBP goal of <160 maintained with no interventions. Has not had BM since 11/08. PRN PO bowel regimen given, suppository declined. Warm prune juice given to pt. Still no movement, however passing flatus. Pt reports that he does not feel he is getting better, feels as if he is slurring his words and arms and legs feels heavy. RN removed heavy blankets and given his upper dentures... reports that his complaints resolved. Will continue to monitor. ?? PLAN MOVING FORWARD: ?? q2h neuro checks q4h vitals, I&O Have BM Pain control ?? INDIVIDUALIZED FALL PREVENTION INTERVENTIONS: ?? Patient-specific fall risk factors per assessment: hospital environment, general weakness, intermittent confusion and word finding ?? Assistance: 1-2 assist, FWW ?? Supervision: Arms reach ?? Surveillance: Bed locked in low position, call reddy within reach, purposeful hourly rounding, clutter free environment, bed/chair alarm on ?? Patient-specific fall prevention interventions for sensory deficits provided: N/A ?? CPG GOAL OUTCOME EVALUATION: ?? Continue care plan as documented. * Charlene Louis MD - 11/14/2019 3:50 AM EDT NEUROSURGERY PROGRESS NOTE ID: HD# 13 11/03/19 LEFT MMA embolization 11/03/19 LEFT subdural drain placement [SEPS removed] 11/02/19 LEFT SEPS placement 11/10/19 LEFT pedro pablo holes for SDH evacuation, Dr. Addy Bansk 74 y.o. male with PMH of HTN, HLD, and DM with progressively worsening RIGHT sided weakness found to have a large LEFT frontal/parietal mixed attenuation SDH. 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 INTERVAL HX/ROS: -Having what panic attacks vs episodes of word finding difficulty -Started on Buspirone -NPO since OR for embolization of fistula today MEDICATIONS: Scheduled Meds: ??? busPIRone 7.5 mg Oral BID ??? valproate sodium 500 mg Intravenous Q8H SKIP ??? melatonin 3 mg Oral Nightly ??? famotidine 40 mg Oral BID ??? lisinopriL 5 mg Oral Daily ??? sodium chloride 0.9 % (flush) 5 mL Intravenous BID ??? insulin lispro 1-5 Units Subcutaneous TID AC Continuous Infusions: ??? sodium chloride 0.9% infusion 100 mL/hr Intravenous Continuous ### PRN Meds: BUpivacaine-EPINEPHrine, gelatin compressed, thrombin (Bovine), oxyCODONE OR oxyCODONE, calcium carbonate, senna-docusate, polyethylene glycoL (MIRALAX) oral powder, bisacodyL, lidocaine, sodium chloride 0.9 % (flush), lidocaine, ondansetron OR ondansetron, acetaminophen OR mejia taminophen, labetalol, hydrALAZINE, glucose 40% oral geL OR dextrose 10% OR glucagon (humanrecombinant) EXAM: Vitals: Temp: [36.1 ??C (97 ??F)-37.1 ??C (98.8 ??F)] Heart Rate: [53-64] Resp: [11-20] BP: (122-151)/(55-89) SpO2: [93 %-99 %] Heart Rate from SpO2: [53 bpm-64 bpm] BMI: Weight: 83.6 kg (184 lb 4.9 oz) (11/03/19 2335) BMI (Calculated): 27.49 BMI Classification: Over Weight I/O: I/O last 3 completed shifts: In: 1231 [P.O.:900; I.V.:331] Out: 350 [Urine:345; Other:5] TRANG: out 11/12 Physical Exam: General:NAD, listening to calm radio with stress blocks in his hands Neurological: A&Ox3 Speech fluent and appropriate, mildly dysarthric due to lack of upper dentures. Naming and repetition intact. PERRL. EOMI. Visual doty full to confrontation. No facial asymmetry Tongue midline Motor: Feeling as though coordination is improving RUE:08/22 LUE:08/22 RLE: 08/22 LLE: 08/22 No upper extremity drift. LT sensation intact x 4. [place] hole sites c/d/i, closed with roberto LABS: Recent Labs 11/14/1920411/13/1920211/12/19 0133 WBC 5.8 6.3 6.4 HGB 12.9* 12.9* 12.9* PLATELET 261 250 219 Recent Labs 11/14/1920411/13/1920211/12/19 0133 NA 140 137 139 K 4.2 4.1 4.1 CL 103 103 102 CO2 25 24 25 BUN 14 15 11 CREATININE 1.03 0.90 0.98 No results for input(s): PT, INR in the last 72 hours. IMAGING: EXAMINATION: CT HEAD WO CONTRAST (GENERIC) IMPRESSION Expected evolution of the left subdural collection with mild decrease in mass Effect. A/P: 74 y.o. male with PMH of HTN, HLD, and DM with progressively worsening RIGHT sided weakness found to have a large LEFT frontal/parietal mixed attenuation SDH. 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 His waxing and waning mental status on presentation raised concern for possible seizures and he was placed on video EEG without recorded seizure activity. He was again placed on video EEG on11/08/19 after episodic agitation and speech arrest. He was taken for pedro pablo holes for SDH drainage 11/09 and is neurologically better post-op, however now w bouts of agitation and expressive aphasia, stable this morning. CTH demonstrates a reduction in hematoma size. Keppra was switched to Valproate which is w/in therapeutic range. Started on Buspirone for panic attacks 11/13. Plan for dAVF embolization today. Plan: - Q4HNC - SBP<160 - Hold DVT ppx - NPO for IR today - Depakote 500mg TID - F/u need for BIT/psych consultation PLEASE PAGE [phone] WITH QUESTIONS Active Hospital Problems Diagnosis ??? SDH (subdural hematoma) Resolved Hospital Problems No resolved problems to display. Active Non-Hospital Problems Diagnosis ??? Basal cell carcinoma ??? Roxy Louis MD 11/14/2019 * Belgica Goldsmith RN - 11/14/2019 3:39 AM EDT Problem: Patient Care Overview Goal: Plan of Care Review Outcome: Ongoing (Interventions Implemented as Appropriate) ? 11/14/19??0445 Coping/Psychosocial Plan Of Care Reviewed With patient Plan of Care Review Progress improving ?? OUTCOME EVALUATION NOTE: ?? OUTCOME SUMMARY: ?? Pt was mostly A&O x4 and able to follow commands on all 4 extremities. 2 episodes of anxiety/panic attack/paranoia lasting approx 10-20mins each. Was able to correctly identify place and situation, but reported that he didn't believe or trust it. Stated I no longer would like to be a part of this experiment and attempted to leave room. Able to be redirected and reassured by staff pt is familiar with, reported still feeling panicked but feeling safe with this RN. Pt requested ativan which he reports he worked well when he received it here a couple of days ago. Team paged, STAT buspar ordered. Pain well controlled with PRN tylenol and oxy, rings appropriately as needed. ?? SB-NSR on the monitor, SBP goal of <160 maintained with no interventions. Has not had BM since 11/08. PRN PO bowel regimen given, offered suppository which pt declined. NPO since midnight in preparation for procedure this am. MIVF initiated at 0000. Up freq to urinate. Will continue to monitor. ?? PLAN MOVING FORWARD: ?? q2h neuro checks q4h vitals, I&O Have BM NPO since 0000 Pain control IR for embolization ?? INDIVIDUALIZED FALL PREVENTION INTERVENTIONS: ?? Patient-specific fall risk factors per assessment:??hospital environment, general weakness, intermittent confusion and word finding ?? Assistance:??1-2 assist, FWW ?? Supervision: Arms reach ?? Surveillance: Bed locked in low position, call reddy within reach, purposeful hourly rounding, clutter free environment, bed/chair alarm on ?? Patient-specific fall prevention interventions for sensory deficits provided: N/A ?? CPG GOAL OUTCOME EVALUATION:? Continue care plan as documented. * Belgica Goldsmith RN - 11/13/2019 6:48 AM EDT Problem: Patient Care Overview Goal: Plan of Care Review Outcome: Ongoing (Interventions Implemented as Appropriate) ? 11/13/19 0645 Coping/Psychosocial Plan Of Care Reviewed With patient Plan of Care Review Progress improving ?? OUTCOME EVALUATION NOTE: ?? OUTCOME SUMMARY: ?? Pt is A&O x4, able to follow commands on all 4 extremities, pleasant all shift. Pain well controlled with PRN tylenol and oxy, rings appropriately for meds as needed. Subgleal drain in place, minsang output. Intermittently experienced some word finding throughout shift, self resolving after 5-10mins each time. Was always able to answer orientation questions and would hold conversations with m in delay in response. ?? SB-NSR on the monitor, SBP goal of <160 maintained with no interventions. Has not had BM since 11/08. PRN PO bowel regimen given, offered suppository 2x which pt politely declined each time. Will continue to monitor. ?? PLAN MOVING FORWARD: ?? q2h neuro checks q4h vitals, I&O Have BM Drain removal Pain control Embol tomorrow ?? INDIVIDUALIZED FALL PREVENTION INTERVENTIONS: ?? Patient-specific fall risk factors per assessment: hospital environment, general weakness, intermittent confusion and word finding ?? Assistance: 1-2 assist, FWW ?? Supervision: Arms reach ?? Surveillance: Bed locked in low position, call reddy within reach, purposeful hourly rounding, clutter free environment, bed/chair alarm on ?? Patient-specific fall prevention interventions for sensory deficits provided: N/A ?? CPG GOAL OUTCOME EVALUATION: ?? Continue care plan as documented. * Charlene Louis MD - 11/13/2019 3:43 AM EDT NEUROSURGERY PROGRESS NOTE ID: HD# [id number] 11/03/19 LEFT MMA embolization 11/03/19 LEFT subdural drain placement [SEPS removed] 11/02/19 LEFT SEPS placement 11/10/19 LEFT pedro pablo holes for SDH evacuation, Dr. Addy Banks 74 y.o. male with PMH of HTN, HLD, and DM with progressively worsening RIGHT sided weakness found to have a large LEFT frontal/parietal mixed attenuation SDH. 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 INTERVAL HX/ROS: -NAEON -Had one episode of word finding/formation difficulty yesterday, then panic out of fear, lasted 10 minutes -Depakote level 55 this morning -Willing to replace the vEEG if this keeps happening, but would prefer not to due to PTSD -Will be NPO tonight for dAVF embo tmrw MEDICATIONS: Scheduled Meds: ??? valproate sodium 500 mg Intravenous Q8H SKIP ??? melatonin 3 mg Oral Nightly ??? famotidine 40 mg Oral BID ??? lisinopriL 5 mg Oral Daily ??? sodium chloride 0.9 % (flush) 5 mL Intravenous BID ??? insulin lispro 1-5 Units Subcutaneous TID AC Continuous Infusions: ??? [START ON 11/14/2019] sodium chloride 0.9% infusion 100 mL/hr Intravenous Continuous ### PRN Meds: BUpivacaine-EPINEPHrine, gelatin compressed, thrombin (Bovine), oxyCODONE OR oxyCODONE, calcium carbonate, senna-docusate, polyethylene glycoL (MIRALAX) oral powder, bisacodyL, lidocaine, sodium chloride 0.9 % (flush), lidocaine, ondansetron OR ondansetron, acetaminophen OR mejia taminophen, labetalol, hydrALAZINE, glucose 40% oral geL OR dextrose 10% OR glucagon (humanrecombinant) EXAM: Vitals: Temp: [36.5 ??C (97.7 ??F)-37.1 ??C (98.8 ??F)] Heart Rate: [48-65] Resp: [10-20] BP: (92-159)/(50-65) SpO2: [96 %-100 %] Heart Rate from SpO2: [49 bpm-64 bpm] BMI: Weight: 83.6 kg (184 lb 4.9 oz) (11/03/19 2335) BMI (Calculated): 27.49 BMI Classification: Over Weight I/O: I/O last 3 completed shifts: In: 1300 [P.O.:1280; I.V.:20] Out: 620 [Urine:575; Other:45] TRANG: 5 mL, no fluid in the tubing Physical Exam: General:NAD, feeling calm this morning, no speech trouble, lying wide awake in bed Neurological: A&Ox3 Speech fluent and appropriate, mildly dysarthric due to lack of upper dentures. Naming and repetition intact. PERRL. EOMI. Visual doty full to confrontation. No facial asymmetry Tongue midline Motor: Full strength on the right side, with feelings of incoordination - stable RUE:5/5 LUE:5/5 RLE: 5/5 LLE: 5/5 No upper extremity drift. LT sensation intact x 4. Two small mepliex dressings over the pedro pablo holes, which remain clean and dry LABS: Recent Labs 11/13/19 0203 11/12/19 0133 11/11/19 020 WBC 6.3 6.4 7.3 HGB 12.9* 12.9* 13.0* PLATELET 250 219 228 Recent Labs 11/13/19 0203 11/12/19 0133 11/11/19 020 NA 137 139 141 K 4.1 4.1 4.6 CL 103 102 102 CO2 24 25 29 BUN 15 11 12 CREATININE 0.90 0.98 1.17 No results for input(s): PT, INR in the last 72 hours. IMAGING: EXAMINATION: CT HEAD WO CONTRAST (GENERIC) IMPRESSION Expected evolution of the left subdural collection with mild decrease in mass Effect. A/P: 74 y.o. male with PMH of HTN, HLD, and DM with progressively worsening RIGHT sided weakness found to have a large LEFT frontal/parietal mixed attenuation SDH. 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 His waxing and waning mental status on presentation raised concern for possible seizures and he was placed on video EEG without recorded seizure activity. He was again placed on video EEG on11/08/19 after episodic agitation and speech arrest. He was taken for pedro pablo holes for SDH drainage 11/09 and is neurologically better post-op, however now w bouts of agitation and expressive aphasia, stable this morning. CTH demonstrates a reduction in hematoma size. Keppra was switched to Valproate which is w/in therapeutic range. Will be NPO at OR for dAVF embo tmrw. Plan: - Q2HNC, then Q4H, floor status after drain removal - SBP<160 - Hold DVT ppx - Remove TRANG today - Regular diet; NPO at OR for vascular malformation embolization tmrw - Depakote 500mg TID - F/u need for BIT/psych consultation - DISPO: transfer to 5W after removal of drain PLEASE PAGE [phone] WITH QUESTIONS Active Hospital Problems Diagnosis ??? SDH (subdural hematoma) Resolved Hospital Problems No resolved problems to display. Active Non-Hospital Problems Diagnosis ??? Basal cell carcinoma ??? Roxy Louis MD 11/13/2019 * Belgica Goldsmith RN - 11/12/2019 7:37 AM EDT Problem: Patient Care Overview Goal: Plan of Care Review Outcome: Ongoing (Interventions Implemented as Appropriate) ? 11/12/19 0737 Coping/Psychosocial Plan Of Care Reviewed With patient Plan of Care Review Progress improving OUTCOME EVALUATION NOTE: OUTCOME SUMMARY: Pt is A&O x4, able to follow commands on all 4 extremities, pleasant all shift. UA sent down, neg for UTI, team aware. Pain well controlled with PRN tylenol and oxy, rings appropriately for meds as needed. No need to sitter all shift as pt was calm and cooperative. Emergency contact, Loretta, called and has given permission for us to relay pt info to all family members listed on sticky note. Started on IV Depakote, d/c-ed keppra this evening. Subgleal drain in place, min sang output. Had 1 short episode of word finding this am lasting approx 10-15 mins. Resolved on own, reports that his words are back, able to answer orientation questions and hold conversation with min delay in response. SB-NSR on the monitor, SBP goal of <160 maintained with no interventions. Has not had BM since 11/08. 2 PIVs removed this shift, 1 PIV remaining. Per MD, no ativan is to be given without permission. Nikki vest to be used if needed. Will continue to monitor. PLAN MOVING FORWARD: q2h neuro checks q4h vitals, I&O Have BM Pain control D/c sitter order INDIVIDUALIZED FALL PREVENTION INTERVENTIONS: Patient-specific fall risk factors per assessment: hospital environment, general weakness, intermittent confusion and word finding Assistance: 1-2 assist, FWW Supervision: Arms reach Surveillance: Bed locked in low position, call reddy within reach, purposeful hourly rounding, clutter free environment, bed/chair alarm on Patient-specific fall prevention interventions for sensory deficits provided: N/A CPG GOAL OUTCOME EVALUATION: Continue care plan as documented. * Charlene Louis MD - 11/12/2019 3:56 AM EDT NEUROSURGERY PROGRESS NOTE ID: HD# 11 11/03/19 LEFT MMA embolization 11/03/19 LEFT subdural drain placement [SEPS removed] 11/02/19 LEFT SEPS placement 11/10/19 LEFT pedro pablo holes for SDH evacuation, Dr. Addy Banks 74 y.o. male with PMH of HTN, HLD, and DM with progressively worsening RIGHT sided weakness found to have a large LEFT frontal/parietal mixed attenuation SDH. 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 INTERVAL HX/ROS: POD2 s/p pedro pablo hold drainage of SDH Having episodes of expressive aphasia and agitation CTH w reduction in hematoma size and reduced mass effect Chapin switched to Valproate Feeling much better this morning, apologetic for his behavior yesterday, but he felt scared MEDICATIONS: Scheduled Meds: ??? valproate sodium 500 mg Intravenous Q8H SKIP ??? valproate sodium 1,000 mg Intravenous Once ??? melatonin 3 mg Oral Nightly ??? famotidine 40 mg Oral BID ??? lisinopriL 5 mg Oral Daily ??? sodium chloride 0.9 % (flush) 5 mL Intravenous BID ??? insulin lispro 1-5 Units Subcutaneous TID AC Continuous Infusions: PRN Meds: BUpivacaine-EPINEPHrine, gelatin compressed, thrombin (Bovine), oxyCODONE OR oxyCODONE, calcium carbonate, senna-docusate, polyethylene glycoL (MIRALAX) oral powder, bisacodyL, lidocaine, sodium chloride 0.9 % (flush), lidocaine, ondansetron OR ondansetron, acetaminophen OR mejia taminophen, labetalol, hydrALAZINE, glucose 40% oral geL OR dextrose 10% OR glucagon (humanrecombinant) EXAM: Vitals: Temp: [36.5 ??C (97.7 ??F)-37.3 ??C (99.1 ??F)] Heart Rate: [51-72] Resp: [10-26] BP: (92-158)/(51-91) SpO2: [93 %-100 %] Heart Rate from SpO2: [53 bpm-69 bpm] BMI: Weight: 83.6 kg (184 lb 4.9 oz) (11/03/19 2335) BMI (Calculated): 27.49 BMI Classification: Over Weight I/O: I/O last 3 completed shifts: In: 1020 [P.O.:520; I.V.:500] Out: 1160 [Urine:1025; Other:110; Blood:25] TRANG: 35 mL Physical Exam: General:NAD, feeling much better this morning Neurological: A&Ox3 Speech fluent and appropriate - no word finding difficulties this morning. Naming and repetition intact. PERRL. EOMI. Visual doty full to confrontation. No facial asymmetry Tongue midline Motor: Full strength on the right side, stable RUE:5/5 LUE:5/5 RLE: 5/5 LLE: 5/5 No upper extremity drift. LT sensation intact x 4. Dressings dry and intact - there are two small mepliex dressings over the pedro pablo holes, which are clean and dry LABS: Recent Labs 11/12/19 0133 11/11/19 0207 11/10/19 0127 WBC 6.4 7.3 5.6 HGB 12.9* 13.0* 13.6* PLATELET 219 228 232 Recent Labs 11/12/19 0133 11/11/19 0207 11/10/19 0127 NA 139 141 140 K 4.1 4.6 3.9 CL 102 102 103 CO2 25 29 27 BUN 11 12 13 CREATININE 0.98 1.17 0.97 Recent Labs 11/09/19 1221 PT 11.7 INR 1.0 IMAGING: EXAMINATION: CT HEAD WO CONTRAST (GENERIC) IMPRESSION Expected evolution of the left subdural collection with mild decrease in mass Effect. A/P: 74 y.o. male with PMH of HTN, HLD, and DM with progressively worsening RIGHT sided weakness found to have a large LEFT frontal/parietal mixed attenuation SDH. 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 His waxing and waning mental status on presentation raised concern for possible seizures and he was placed on video EEG without recorded seizure activity. He was again placed on video EEG on11/08/19 after episodic agitation and speech arrest. He was taken for pedro pablo holes for SDH drainage 11/09 and is neurologically better post-op, however now w bouts of agitation and expressive aphasia. CTH demonstrates a reduction in hematoma size. Keppra was switched to Valproate. Will continue the TRANG until drainage becomes clear indicating CSF. Plan: No change today - continuing TRANG drain until it clears, monitoring for fluctuations in mental status - Q2HNC - SBP<160 - Hold DVT ppx - Monitor drain output (half suction) - Regular diet - Keppra 500mg BID - C/s BIT/psych may occur PLEASE PAGE [phone] WITH QUESTIONS Active Hospital Problems Diagnosis ??? SDH (subdural hematoma) Resolved Hospital Problems No resolved problems to display. Active Non-Hospital Problems Diagnosis ??? Basal cell carcinoma ??? Roxy Louis MD 11/12/2019 * Charlene Louis MD - 11/11/2019 3:57 AM EDT NEUROSURGERY PROGRESS NOTE ID: HD# 10 11/03/19 LEFT MMA embolization 11/03/19 LEFT subdural drain placement [SEPS removed] 11/02/19 LEFT SEPS placement 74 y.o. male with PMH of HTN, HLD, and DM with progressively worsening RIGHT sided weakness found to have a large LEFT frontal/parietal mixed attenuation SDH. 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 INTERVAL HX/ROS: POD1 s/p pedro pablo hold drainage of SDH NAEON Feeling depressed this morning, stating, I just want it all to be done MEDICATIONS: Scheduled Meds: ??? melatonin 3 mg Oral Nightly ??? famotidine 40 mg Oral BID ??? lisinopriL 5 mg Oral Daily ??? sodium chloride 0.9 % (flush) 5 mL Intravenous BID ??? levETIRAcetam 500 mg Oral BID Or ??? levETIRAcetam 500 mg Intravenous BID ??? insulin lispro 1-5 Units Subcutaneous TID AC Continuous Infusions: PRN Meds: BUpivacaine-EPINEPHrine, gelatin compressed, thrombin (Bovine), oxyCODONE OR oxyCODONE, calcium carbonate, senna-docusate, polyethylene glycoL (MIRALAX) oral powder, bisacodyL, lidocaine, sodium chloride 0.9 % (flush), lidocaine, ondansetron OR ondansetron, acetaminophen OR mejia taminophen, labetalol, hydrALAZINE, glucose 40% oral geL OR dextrose 10% OR glucagon (humanrecombinant) EXAM: Vitals: Temp: [36.4 ??C (97.5 ??F)-37.1 ??C (98.8 ??F)] Heart Rate: [51-74] Resp: [9-23] BP: (101-156)/(54-82) SpO2: [92 %-100 %] Heart Rate from SpO2: [51 bpm-74 bpm] BMI: Weight: 83.6 kg (184 lb 4.9 oz) (11/03/19 2335) BMI (Calculated): 27.49 BMI Classification: Over Weight I/O: I/O last 3 completed shifts: In: 2023 [P.O.:50; I.V.:1973] Out: 1740 [Urine:1675; Other:40; Blood:25] TRANG: 60 SSF Physical Exam: General:NAD, but appears tired and down Neurological: A&Ox3 Speech fluent and appropriate. Naming and repetition intact. PERRL. EOMI. Visual doty full to confrontation. No facial asymmetry Tongue midline Motor: Full strength on the right side RUE:5/5 LUE:5/5 RLE: 5/5 LLE: 5/5 No upper extremity drift. LT sensation intact x 4. Dressings dry and intact - there are two small mepliex dressings over the pedro pablo holes which are covered with a crani cap LABS: Recent Labs 11/11/19 02011/10/1912611/09/19 0226 WBC 7.3 5.6 5.9 HGB 13.0* 13.6* 13.0* PLATELET 228 232 205 Recent Labs 11/11/1920611/10/1912611/09/19 022 NA 141 140 139 K 4.6 3.9 3.8 CL 102 103 104 CO2 29 27 23 BUN 12 13 18 CREATININE 1.17 0.97 1.02 Recent Labs 11/09/19 1221 PT 11.7 INR 1.0 IMAGING: None new. A/P: 74 y.o. male with PMH of HTN, HLD, and DM with progressively worsening RIGHT sided weakness found to have a large LEFT frontal/parietal mixed attenuation SDH. 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 His waxing and waning mental status on presentation raised concern for possible seizures and he was placed on video EEG without recorded seizure activity. He was again placed on video EEG on11/08/19 after episodic agitation and speech arrest. He was taken for pedro pablo holes for SDH drainage yesterday and is neurologically better post-op. Will continue the TRANG until drainage becomes clear indicating CSF. His mental status is worrisome today w memories of his daughter. He adamantly de nies wanting to talk with somebody. This will be monitored closely and BIT/psych will be called if needed. Plan: - Q2HNC - SBP<160 - Hold DVT ppx - Monitor drain output (half suction) - Regular diet - Keppra 500mg BID - C/s BIT/psych may occur PLEASE PAGE [phone] WITH QUESTIONS Active Hospital Problems Diagnosis ??? SDH (subdural hematoma) Resolved Hospital Problems No resolved problems to display. Active Non-Hospital Problems Diagnosis ??? Basal cell carcinoma ??? Roxy Louis MD 11/11/2019 * Tu Reyes MD - 11/10/2019 2:32 PM EDT NEUROSURGERY PROGRESS NOTE ID: HD# 9 11/03/19 LEFT MMA embolization 11/03/19 LEFT subdural drain placement [SEPS removed] 11/02/19 LEFT SEPS placement 74 y.o. male with PMH of HTN, HLD, and DM with progressively worsening RIGHT sided weakness found to have a large LEFT frontal/parietal mixed attenuation SDH. ??Found to have left dAVF ([place] 3) on DSA. INTERVAL HX/ROS: Post op check MEDICATIONS: Scheduled Meds: ??? [JUN Hold] melatonin 3 mg Oral Nightly ??? [JUN Hold] famotidine 40 mg Oral BID ??? [JUN Hold] lisinopriL 5 mg Oral Daily ??? sodium chloride 0.9 % (flush) 5 mL Intravenous BID ??? [JUN Hold] levETIRAcetam 500 mg Oral BID Or ??? [JUN Hold] levETIRAcetam 500 mg Intravenous BID ??? [JUN Hold] insulin lispro 1-5 Units Subcutaneous TID AC Continuous Infusions: PRN Meds: BUpivacaine-EPINEPHrine, gelatin compressed, thrombin (Bovine), naloxone, HYDROmorphone, ondansetron, [JUN Hold] calcium carbonate, [JUN Hold] senna-docusate, [JUN Hold] polyethylene glycoL(MIRALAX) oral powder, [JUN Hold] bisacodyL, [JUN Hold] lidocaine, [JUN Hold] oxyCODONE, sodium chloride 0.9 % (flush), lidocaine, [JUN Hold] ondansetron OR [JUN Hold] ondansetron, [JUN Hold] acetaminophen OR [JUN Hold] acetaminophen, [JUN Hold] labetalol, [JUN Hold] hydrALAZINE, [JUN Hold]glucose 40% oral geL OR [MAR Hold] dextrose 10% OR [MAR Hold] glucagon (human recombinant) EXAM: Vitals: Temp: [36.3 ??C (97.3 ??F)-37.1 ??C (98.8 ??F)] Heart Rate: [49-74] Resp: [13-23] BP: (97-164)/(51-71) SpO2: [94 %-100 %] Heart Rate from SpO2: [48 bpm-71 bpm] BMI: Weight: 83.6 kg (184 lb 4.9 oz) (11/03/19 2335) BMI (Calculated): 27.49 BMI Classification: Over Weight I/O: I/O last 3 completed shifts: In: 1724 [P.O.:250; I.V.:1474] Out: 1250 [Urine:1250] TRANG: ALIREZA GEN:NAD NEURO: Waking up from anesthesia CLINE Following commands x4 Dressings dry and intact LABS: Recent Labs 11/10/19 0127 11/09/19 0226 11/08/19 0224 WBC 5.6 5.9 6.5 HGB 13.6* 13.0* 13.0* PLATELET 232 205 188 Recent Labs 11/10/19 0127 11/09/19 0226 11/08/19 0224 NA 140 139 140 K 3.9 3.8 4.0 CL 103 104 102 CO2 27 23 26 BUN 13 18 16 CREATININE 0.97 1.02 0.92 Recent Labs 11/09/19 1221 PT 11.7 INR 1.0 IMAGING: CT Head wo Contrast 11/09/19: COMPARISON: 11/05/2019 CT head ?? FINDINGS: The left frontal approach EVD has been removed. Mildly increased nondependent pneumocephalus and size of the heterogeneous subdural collection overlying the left frontal convexity, which measures up to 21 mm, previously 19 mm. Subarachnoid hemorrhage within the underlying frontal lobe sulci is grossly unchanged. There is similar mass effect on the left cerebral convexity with grossly stable resulting left left right midline shift of 8 mm, previously 7 mm. No uncal herniation. No new foci of parenchymal hemorrhage or extra-axial collection. Ann-white differentiation is preserved. Ventricles are stable in size. Basal cisterns are patent. ?? IMPRESSION Very slight interval increase in size of the left frontal subdural hemorrhage, now 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 Grossly stable [id number] midline shift. A/P: 74 y.o. male with PMH of HTN, HLD, and DM with progressively worsening RIGHT sided weakness found to have a large LEFT frontal/parietal mixed attenuation SDH. 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 His waxing and waning mental status on presentation raised concern for possible seizures and he was placed on video EEG without recorded seizure activity. He was again placed on video EEG on11/08/19 after episodic agitation and speech arrest. Q2HNC SBP<160 Hold DVT ppx Monitor drain output (half suction) Regular diet Keppra 500mg BID PLEASE PAGE [phone] WITH QUESTIONS Active Hospital Problems Diagnosis ??? SDH (subdural hematoma) Resolved Hospital Problems No resolved problems to display. Active Non-Hospital Problems Diagnosis ??? Basal cell carcinoma ??? Roxy Reyes MD 11/10/2019 * Addy Banks MD - 11/10/2019 1:20 PM EDT Asked by Dr. Singh to assume care; symptomatic L sided CSDH s/p SEPS trial; he has dural AVF s/p partial embolization; we plan burrhole drainage; clear discussion of risks of anesthesia, bleeding (including catastrophic life threatening hemorrhage), infection, need for further surgery all explicitly discussed; he wishes to proceed. * Charlene Louis MD - 11/10/2019 11:46 AM EDT NEUROSURGERY PROGRESS NOTE ID: Josue Nguyen is a 74 y.o. male with PMH of HTN, HLD, and DM with progressively worsening RIGHT sided weakness found to have a large LEFT frontal/parietal mixed attenuation SDH. Found to have left dAVF ([place] 3) on DSA. 11/02/19: L SEPS placement 11/03/19: L SDD placement (SEPS removed) 11/03/19: L MMA embo (incidental dAVF) INTERVAL Hx: - Crani for SDH evacuation was postponed yesterday - NPO since MN last night - Neuro stable with RIGHT sided upper extremity slight hemiparesis MEDICATIONS: Scheduled Meds: ??? melatonin 3 mg Oral Nightly ??? famotidine 40 mg Oral BID ??? lisinopriL 5 mg Oral Daily ??? sodium chloride 0.9 % (flush) 5 mL Intravenous BID ??? levETIRAcetam 500 mg Oral BID Or ??? levETIRAcetam 500 mg Intravenous BID ??? insulin lispro 1-5 Units Subcutaneous TID AC Continuous Infusions: PRN: calcium carbonate, senna-docusate, polyethylene glycoL (MIRALAX) oral powder, bisacodyL, lidocaine, oxyCODONE, sodium chloride 0.9 % (flush), lidocaine, ondansetron OR ondansetron, acetaminophen OR acetaminophen, labetalol, hydrALAZINE, glucose 40% oral geL OR dextrose 10% OR glucagon (human recombinant) EXAM: Temp: [36.2 ??C (97.2 ??F)-37.1 ??C (98.8 ??F)] Heart Rate: [49-74] Resp: [13-23] BP: (97-164)/(51-71) SpO2: [94 %-100 %] Heart Rate from SpO2: [48 bpm-71 bpm] I/O: Intake/Output Summary (Last 24 hours) at 11/10/2019 1146 Last data filed at 11/10/2019 0400 Gross per 24 hour Intake 1319 ml Output 1200 ml Net 119 ml Drain: SDD out 11/06 GEN:NAD, resting in bed NEURO:A+Ox3 Speech fluent and appropriate. Naming and repetition intact. PERRL. EOMI. Visual doty full to confrontation. No facial asymmetry Tongue midline MOTOR: RUE:4/5 throughout - unchanged today LUE:5/5 RLE: 5/5 - no weakness identifiable LLE: 5/5 No pronator drift LT sensation intact x 4 LABS: Recent Labs 11/10/19 0127 11/09/19 0226 11/08/19 0224 WBC 5.6 5.9 6.5 HGB 13.6* 13.0* 13.0* PLATELET 232 205 188 Recent Labs 11/10/19 0127 11/09/19 0226 11/08/19 0224 NA 140 139 140 K 3.9 3.8 4.0 CL 103 104 102 CO2 27 23 26 BUN 13 18 16 CREATININE 0.97 1.02 0.92 Recent Labs 11/09/19 1221 PT 11.7 INR 1.0 IMAGING: EXAMINATION: CT HEAD WO CONTRAST (GENERIC) IMPRESSION Very slight interval increase in size of the left frontal subdural hemorrhage, now 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 Grossly stable [id number] midline shift. A/P: Josue Nguyen is a 74 y.o. male with PMH of HTN, HLD, and DM with progressively worsening RIGHT sided weakness found to have a large LEFT frontal/parietal mixed attenuation SDH. His waxing andwaning mental status on presentation raised concern for possible seizures and he was placed on vEEG- there have been no seizures to date. A L SEPS was placed the day after admission and was replacedby a SDD the following day after output was minimal. On the 2-3 days following SDD placement, a substantial amount of chronic blood was evacuated. It started to taper and was removed. He is now s/p MMA embo on the L and was found to have a L parietal dAVF on angiography. He had intermittent bouts of confusion 11/07 and was placed on vEEG briefly which was negative for seizures. He also developed recurrent R sided weakness and rCTH demonstrated slight enlargement of his SDH. Plan for L crani for SDH evacuation today and DAVF embo either Thursday or as an outpatient. Problem List: Large a/cSDH, LEFT L parietal dAVF Seizures ruled out HTN HLD TIIDM Plan: -Q2H neuro checks, NSCU status -AEDs per Neurology; Keppra 500 BID -Hold ap/ac -Activity as tolerated -To OR today for hematoma evacuation -NPO -F/u plan for fistula embolization maybe thursday DISPO: NSCU FULL CODE For question please call NSGY pager [phone] Charlene Louis MD 11/10/2019 Clinical Documentation Improvement: Active Hospital Problems Diagnosis ??? SDH (subdural hematoma) Resolved Hospital Problems No resolved problems to display. * Erik Sen DT - 11/10/2019 11:45 AM EDT Nutrition Services Note - Low Nutrition Acuity Josue Nguyen is a 74 y.o. male Reason for intervention: follow up, hospital day 9 Nutrition Plan: Continue current diet. Multivitamin with minerals. Collect updated weight. Monitor weight. Encourage good oral intake. Support and encouragement provided. When pt is not NPO, he maintains excellent intake between 75-100% documented in eDH. Pt was very pleasant upon visit, although he voiced frustration over his aphasia. Mat Packer offered support. According to pt, his appetite has been off and on for the past 3-4 weeks. Pt suspects he has lost some weight but is unsure of how much. His UBW is 190 lbs, although he imagines his weight is bellow that no w. When medically appropriate, production underwriter suggests collecting an updated weight. Pt regularly follows an intermittent fasting style of eating. Pt has no nutritional concerns or questions at this time and denies the needs for snacks/supplements. Nutrition will continue to follow. Active Orders Diet NPO diet (Give Meds) Frequency: Effective Now Number of Occurrences: Until Specified Admit Weight: 86.18 kg Estimated body mass index is 26.44 kg/m?? as calculated from the following: Height as of 11/03/19: 177.8 cm (5' 10). Weight as of this encounter: 83.6 kg (184 lb 4.9 oz). Wt Readings from Last 5 Encounters: 11/03/19 83.6 kg (184 lb 4.9 oz) 11/03/19 86.9 kg (191 lb 9.3 oz) Weight loss: not clinically significant, some wt loss per pt Appetite: Excellent (75%-100%) Food allergies:no known food allergies Chewing/Swallowing difficulty: none Nausea/Vomiting: no nausea and no vomiting Last Bowel Movement: 11/09/19 Patient education / questions: all nutrition related questions answered at this time Nutrition services to follow weekly through hospital course unless consulted in the interim. UMA Cardoso Pager: [phone] * Charlene Louis MD - 11/09/2019 9:57 AM EDT NEUROSURGERY PROGRESS NOTE ID: Josue Nguyen is a 74 y.o. male with PMH of HTN, HLD, and DM with progressively worsening RIGHT sided weakness found to have a large LEFT frontal/parietal mixed attenuation SDH. Found to have left dAVF ([place] 3) on DSA. 11/02/19: L SEPS placement 11/03/19: L SDD placement (SEPS removed) 11/03/19: L MMA embo (incidental dAVF) INTERVAL Hx: - Having intermittent confusion since yesterday afternoon - Feeling weaker on his right side - CTH shows slight increased in LEFT SDH - dAVF embo postponed - Will need a craniotomy for SDH evacuation MEDICATIONS: Scheduled Meds: ??? LORazepam 0.5 mg Intravenous Once ??? melatonin 3 mg Oral Nightly ??? famotidine 40 mg Oral BID ??? lisinopriL 5 mg Oral Daily ??? sodium chloride 0.9 % (flush) 5 mL Intravenous BID ??? levETIRAcetam 500 mg Oral BID Or ??? levETIRAcetam 500 mg Intravenous BID ??? insulin lispro 1-5 Units Subcutaneous TID AC Continuous Infusions: ??? sodium chloride 0.9% 75 mL/hr (11/09/19 0624) PRN: calcium carbonate, senna-docusate, polyethylene glycoL (MIRALAX) oral powder, bisacodyL, lidocaine, oxyCODONE, sodium chloride 0.9 % (flush), lidocaine, ondansetron OR ondansetron, acetaminophen OR acetaminophen, labetalol, hydrALAZINE, glucose 40% oral geL OR dextrose 10% OR glucagon (human recombinant) EXAM: Temp: [36.2 ??C (97.2 ??F)-37.1 ??C (98.8 ??F)] Heart Rate: [49-70] Resp: [12-20] BP: (97-148)/(53-83) SpO2: [92 %-100 %] Heart Rate from SpO2: [49 bpm-68 bpm] I/O: Intake/Output Summary (Last 24 hours) at 11/09/2019 0957 Last data filed at 11/09/2019 0800 Gross per 24 hour Intake 1230 ml Output 450 ml Net 780 ml Drain: SDD out 11/06 GEN:NAD, seen ambulating to the restroom NEURO:A+Ox3 Speech fluent and appropriate. Naming and repetition intact. PERRL. EOMI. Visual doty full to confrontation. No facial asymmetry Tongue midline MOTOR: RUE:4/5 throughout LUE:5/5 RLE: 4+/5 throughout LLE: 5/5 No pronator drift LT sensation intact x 4 Drags the right leg mildly while walking, appears unsteady LABS: Recent Labs 11/09/1922511/08/194 11/07/19 0113 WBC 5.9 6.5 6.6 HGB 13.0* 13.0* 13.5* PLATELET 205 188 187 Recent Labs 11/09/1922511/08/194 11/07/19 0113 NA 139 140 139 K 3.8 4.0 4.1 CL 104 102 106 CO2 23 26 23 BUN 18 16 16 CREATININE 1.02 0.92 0.96 No results for input(s): PT, INR in the last 72 hours. IMAGING: EXAMINATION: CT HEAD WO CONTRAST (GENERIC) IMPRESSION Very slight interval increase in size of the left frontal subdural hemorrhage, now 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 Grossly stable [id number] midline shift. A/P: Josue Nguyen is a 74 y.o. male with PMH of HTN, HLD, and DM with progressively worsening RIGHT sided weakness found to have a large LEFT frontal/parietal mixed attenuation SDH. His waxing andwaning mental status on presentation raised concern for possible seizures and he was placed on vEEG- there have been no seizures to date. A L SEPS was placed the day after admission and was replacedby a SDD the following day after output was minimal. On the 2-3 days following SDD placement, a substantial amount of chronic blood was evacuated. It started to taper and was removed. He is now s/p MMA embo on the L and was found to have a L parietal dAVF on angiography. He has had intermittent confusion since yesterday afternoon concerning for seizures and has been placed on vEEG. No current evidence of seizures. Repeat CTH demonstrates interval worsening and he is weaker on exa mination. He will require a craniotomy for hematoma evacuation today. I will talk with the patient and his daughter to provide an update. To be kept NPO. Plan for DAVF embo either Thursday or as an outpatient. Problem List: Large a/cSDH, LEFT L parietal dAVF Seizures ruled out HTN HLD TIIDM Plan: -Q2H neuro checks, NSCU status -AEDs per Neurology; Keppra 500 BID -Hold ap/ac -Activity as tolerated -To OR today for hematoma evacuation; add-on D case -NPO -F/u plan for fistula embolization maybe thursday DISPO: NSCU FULL CODE For question please call NS pager [phone] Charlene Louis MD 11/09/2019 Clinical Documentation Improvement: Active Hospital Problems Diagnosis ??? SDH (subdural hematoma) Resolved Hospital Problems No resolved problems to display. * Shiv Blankenship - 11/09/2019 8:23 AM EDT Nutrition Services Note - Low Nutrition Acuity Josue Nguyen is a 74 y.o. male Reason for intervention: hospital day 9 Nutrition Plan: Patient screened for Hospital Day 9. Patient not appropriate for nutrition visit atthis time. Nutrition will continue to monitor and follow up with patient as diet advance. Active Orders Diet NPO diet (Give Meds) Frequency: Effective Now Number of Occurrences: Until Specified Admit Weight: 86.18 kg Estimated body mass index is 26.44 kg/m?? as calculated from the following: Height as of 11/03/19: 177.8 cm (5' 10). Weight as of this encounter: 83.6 kg (184 lb 4.9 oz). Wt Readings from Last 5 Encounters: 11/03/19 83.6 kg (184 lb 4.9 oz) 11/03/19 86.9 kg (191 lb 9.3 oz) .. Patient Vitals for the past 168 hrs: Weight 11/03/19 2335 83.6 kg (184 lb 4.9 oz) Weight loss: none - N/A Appetite: Poor (0%-25%) Food allergies:no known food allergies Chewing/Swallowing difficulty: none - N/A Nausea/Vomiting: N/A Last Bowel Movement: 11/09/19 Patient education / questions: not appropriate for education Nutrition services to follow weekly through hospital course unless consulted in the interim. Shiv Blankenship Pager: [phone] * Krystal Hernandez RN - 11/09/2019 2:53 AM EDT Pt. Intermittently Confused. At 1999 had an episode of being unable talk, felt like his brain wasn't processing. At 0000 Patient tried to get out of bed, staff went in pt. Stated i've had enough, I'm leaving now. Ripped off EEG leads, EKG leads, SCDS and everything else he was attached to. Was able to answer the orientation questions appropriately, but seemed confused and unable to process. Said he knew he was here for a brain bleed, but then kept saying he couldn't feel any blood, so that must mean therewasn't any there. Ila SIMS, and ativan and STAT head CT ordered and completed. 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 * Maty Mcfadden APRN - 11/08/2019 7:23 PM EDT NEUROSURGERY PROGRESS NOTE ID: HD# 7 11/02/2019 LEFT SEPS placement 11/03/2019 LEFT subdural drain placement [SEPS removed] 11/03/2019 LEFT MMA embolization [incidental dAVF] 74 year old male who presented with progressively worsening RIGHT sided weakness found to have a large LEFT frontal/parietal mixed attenuation SDH and is now s/p MMA embolization where he was incidentally found to have a dural AV fistula [[place] 3] on DSA. INTERVAL HX/ROS: -Episodic incidents of speech arrest today x3 lasting approximately 30 minutes, last episode approximately 1430 today -dAVF embolization schedule for today cancelled secondary to IR scheduling changes MEDICATIONS: Scheduled Meds: ??? melatonin 3 mg Oral Nightly ??? famotidine 40 mg Oral BID ??? sodium chloride 0.9 % (flush) 5 mL Intravenous BID ??? lisinopriL 5 mg Oral Daily ??? metFORMIN 1,000 mg Oral BID WC ??? sodium chloride 0.9 % (flush) 5 mL Intravenous BID ??? levETIRAcetam 500 mg Oral BID Or ??? levETIRAcetam 500 mg Intravenous BID ??? insulin lispro 1-5 Units Subcutaneous TID AC Continuous Infusions: PRN Meds: calcium carbonate, senna-docusate, polyethylene glycoL (MIRALAX) oral powder, bisacodyL, sodium chloride 0.9 % (flush), lidocaine, oxyCODONE, sodium chloride 0.9 % (flush), lidocaine, ondansetron OR ondansetron, acetaminophen OR acetaminophen, labetalol, hydrALAZINE, glucose 40% oral geL OR dextrose 10% OR glucagon (human recombinant) EXAM: Vitals: Patient Vitals for the past 24 hrs: Temp Pulse Resp BP SpO2 O2 Device 11/07/192051 -- 74 18 123/70 95 % RA 11/07/19 2200 36.6 ??C (97.9 ??F) 58 15 138/62 92 % RA 11/07/19 2328 37 ??C (98.6 ??F) -- -- -- -- -- 11/08/19 0000 -- 63 (!) 4 135/66 96 % RA 11/08/19 0200 36.6 ??C (97.9 ??F) 59 18 130/63 94 % RA 11/08/19 0400 36.8 ??C (98.2 ??F) 55 16 146/61 93 % RA 11/08/19 0600 -- 51 14 138/65 96 % RA 11/08/19 0805 36.9 ??C (98.4 ??F) 63 15 100/67 93 % RA 11/08/19 1000 36.6 ??C (97.9 ??F) 52 17 120/62 96 % RA 11/08/19 1200 36.8 ??C (98.2 ??F) 60 18 124/59 97 % RA 11/08/19 1400 37 ??C (98.6 ??F) 63 20 117/60 97 % RA 11/08/19 1524 -- 65 15 97/53 95 % RA 11/08/19 1600 36.5 ??C (97.7 ??F) -- -- -- -- RA 11/08/19 1826 -- 68 12 124/83 -- RA BMI: Weight: 83.6 kg (184 lb 4.9 oz) (11/03/19 2335) BMI (Calculated): 27.49 BMI Classification: Over Weight I/O: I/O last 3 completed shifts: In: 2413 [P.O.:1540; I.V.:873] Out: 2300 [Urine:2300] Awake, A&Ox3 PERRL EOMI No facial asymmetry, tongue midline Speech fluent and appropriate Names 3/3 object, repetition intact Motor: 5/5 in all extremities No pronator drift Sensation intact to LT x4 Surgical incision C/D/I LABS: Recent Labs 11/08/19 0224 11/07/19 0113 11/06/19 0125 WBC 6.5 6.6 7.4 HGB 13.0* 13.5* 13.1* PLATELET 188 187 179 Recent Labs 11/08/19 0224 11/07/19 0113 11/06/19 0125 NA 140 139 140 K 4.0 4.1 4.0 CL 102 106 109* CO2 26 23 21* BUN 16 16 12 CREATININE 0.92 0.96 0.96 No results for input(s): PT, INR in the last 72 hours. IMAGING: No new imaging A/P: 74 year old male with PMH of HTN, HLD, and DM with progressively worsening RIGHT sided weakness found to have a large LEFT frontal/parietal mixed attenuation SDH. On admission he had a waxing and waning mental status which prompted video EEG monitoring for possible seizures, however no seizures were recorded. On HD #1 a LEFT SEPS drain was placed and replaced the following day with a subdural drain. On HD #2 he underwent LEFT MMA embolization and was incidentally found to have dAVF [[place]3]. He was scheduled for dAVF embolization on HD #7 which was cancelled due to IR scheduling changes. On HD #7 he reported 3 episodes of speech arrest lasting approximately 30 minutes. He remains on Keppra for seizure prophylaxis. He is currently neurologically intact on my exam. -Neuro checks Q2H -vEEG monitoring, I have placed a consult for this -AEDs per Neurology -SBP <160 -Hold antiplatelets/anticoagulation, SCDs while in bed for DVT ppx -Regular diet is OK for now -Will reschedule dAVF embo with IR tomorrow PLEASE PAGE [phone] WITH QUESTIONS Active Hospital Problems Diagnosis ??? SDH (subdural hematoma) Resolved Hospital Problems No resolved problems to display. Active Non-Hospital Problems Diagnosis ??? Basal cell carcinoma ??? Roxy Mcfadden APRN 11/08/2019 * Charlene Louis MD - 11/08/2019 10:08 AM EDT NEUROSURGERY PROGRESS NOTE ID: Josue Nguyen is a 74 y.o. male with PMH of HTN, HLD, and DM with progressively worsening RIGHT sided weakness found to have a large LEFT frontal/parietal mixed attenuation SDH. Found to have left dAVF ([place] 3) on DSA. 11/02/19: L SEPS placement 11/03/19: L SDD placement (SEPS removed) 11/03/19: L MMA embo (incidental dAVF) INTERVAL Hx: - NAEON - No headache - Feels like he is getting stronger - Has been NPO since midnight for DAVF embolization today, however case was cancelled due to changes in IR scheduling MEDICATIONS: Scheduled Meds: ??? melatonin 3 mg Oral Nightly ??? famotidine 40 mg Oral BID ??? sodium chloride 0.9 % (flush) 5 mL Intravenous BID ??? lisinopriL 5 mg Oral Daily ??? metFORMIN 1,000 mg Oral BID WC ??? sodium chloride 0.9 % (flush) 5 mL Intravenous BID ??? levETIRAcetam 500 mg Oral BID Or ??? levETIRAcetam 500 mg Intravenous BID ??? insulin lispro 1-5 Units Subcutaneous TID AC Continuous Infusions: ??? sodium chloride 0.9% 75 mL/hr (11/07/19 2332) PRN: calcium carbonate, senna-docusate, polyethylene glycoL (MIRALAX) oral powder, bisacodyL, sodium chloride 0.9 % (flush), lidocaine, oxyCODONE, sodium chloride 0.9 % (flush), lidocaine, ondansetron OR ondansetron, acetaminophen OR acetaminophen, labetalol, hydrALAZINE, glucose 40% oral geL OR dextrose 10% OR glucagon (human recombinant) EXAM: Temp: [36.6 ??C (97.9 ??F)-37 ??C (98.6 ??F)] Heart Rate: [51-74] Resp: [4-20] BP: (95-146)/(53-70) SpO2: [92 %-97 %] Heart Rate from SpO2: [50 bpm-75 bpm] I/O: Intake/Output Summary (Last 24 hours) at 11/08/2019 1008 Last data filed at 11/08/2019 0830 Gross per 24 hour Intake 947 ml Output 1650 ml Net -703 ml Drain: SDD out 11/06 GEN:NAD NEURO:A+Ox3 Speech fluent and appropriate. Naming and repetition intact. PERRL. EOMI. Visual doty full to confrontation. No facial asymmetry Tongue midline MOTOR: RUE:5/5 LUE:5/5 RLE: 5/5 LLE: 5/5 No pronator drift LT sensation intact x 4 L frontal [address]D in place, dressing c/d/i LABS: Recent Labs 11/08/1922311/07/19 0113 11/06/19 0125 WBC 6.5 6.6 7.4 HGB 13.0* 13.5* 13.1* PLATELET 188 187 179 Recent Labs 11/08/1922311/07/19 0113 11/06/19 0125 NA 140 139 140 K 4.0 4.1 4.0 CL 102 106 109* CO2 26 23 21* BUN 16 16 12 CREATININE 0.92 0.96 0.96 No results for input(s): PT, INR in the last 72 hours. IMAGING: EXAMINATION: CT HEAD WO CONTRAST (GENERIC) IMPRESSION Decreased size of the left subdural hemorrhage, with associated decreased left to right midline shift currently measuring 8 mm previously 10 mm. ?? A/P: Josue Nguyen is a 74 y.o. male with PMH of HTN, HLD, and DM with progressively worsening RIGHT sided weakness found to have a large LEFT frontal/parietal mixed attenuation SDH. His waxing andwaning mental status on presentation raised concern for possible seizures and he was placed on vEEG- there have been no seizures to date. A L SEPS was placed the day after admission and was replacedby a SDD the following day after output was minimal. On the 2-3 days following SDD placement, a substantial amount of chronic blood was evacuated. It started to taper and has minimal output today. He is now s/p MMA embo on the L and was found to have a L parietal dAVF on angiography. Planned forembo of the fistula today, however due to unforseen emergencies, his case has been canceled. Will touch base with IR tmrw regarding inpatient or outpatient treatment of the vascular malformation. Problem List: Large a/cSDH, LEFT L parietal dAVF Seizures ruled out HTN HLD TIIDM Plan: -Q2H neuro checks, NSCU status -AEDs per Neurology; Keppra 500 BID -Hold ap/ac -Activity as tolerated -May require crani for SDH evac - plan to be updated as hospital course continues -Regular diet -F/u plan for fistula embolization DISPO: [facility] [place] FULL CODE For question please call NS pager [phone] Charlene Louis MD 11/08/2019 Clinical Documentation Improvement: Active Hospital Problems Diagnosis ??? SDH (subdural hematoma) Resolved Hospital Problems No resolved problems to display. * Jessica Smith - 11/07/2019 7:35 PM EDT Harness Preparer Encounter Note Patient Name: Josue Nguyen : [id number] MR#: [id number] Admit Date: 11/01/2019 6:59 PM Hospital Day 6 days Narrative: Responded to request for aircraft line assembler consult. Assessment: Patient's kaiden and resiliency are sources of strength. Intervention and Outcome: Actively listened, providing spiritual support as patient engaged in life review; spiritual journeyleading to recent ordination; daughter's from addiction leading to life work in addiction recovery; of beloved November 2018. Follow-up: Harness Preparer remains available for support. Time in Direct Care: 35 min. Jessica Smith 11/07/2019 * Charlene Louis MD - 11/07/2019 9:09 AM EDT NEUROSURGERY PROGRESS NOTE ID: Josue Nguyen is a 74 y.o. male with PMH of HTN, HLD, and DM with progressively worsening RIGHT sided weakness found to have a large LEFT frontal/parietal mixed attenuation SDH. Found to have left dAVF ([place] 3) on DSA. 11/02/19: L SEPS placement 11/03/19: L SDD placement (SEPS removed) 11/03/19: L MMA embo (incidental dAVF) INTERVAL Hx: - NAEON - SDD continues with minimal output - Plan for dAVF embolization tmrw MEDICATIONS: Scheduled Meds: ??? famotidine 40 mg Oral BID ??? sodium chloride 0.9 % (flush) 5 mL Intravenous BID ??? lisinopriL 5 mg Oral Daily ??? metFORMIN 1,000 mg Oral BID WC ??? sodium chloride 0.9 % (flush) 5 mL Intravenous BID ??? levETIRAcetam 500 mg Oral BID Or ??? levETIRAcetam 500 mg Intravenous BID ??? insulin lispro 1-5 Units Subcutaneous TID AC Continuous Infusions: ??? sodium chloride 0.9% Stopped (11/07/19 0640) PRN: calcium carbonate, senna-docusate, polyethylene glycoL (MIRALAX) oral powder, bisacodyL, sodium chloride 0.9 % (flush), lidocaine, oxyCODONE, sodium chloride 0.9 % (flush), lidocaine, ondansetron OR ondansetron, acetaminophen OR acetaminophen, labetalol, hydrALAZINE, glucose 40% oral geL OR dextrose 10% OR glucagon (human recombinant) EXAM: Temp: [36.3 ??C (97.3 ??F)-37.1 ??C (98.8 ??F)] Heart Rate: [52-75] Resp: [14-24] BP: (84-157)/(59-94) SpO2: [93 %-98 %] Heart Rate from SpO2: [52 bpm-74 bpm] I/O: Intake/Output Summary (Last 24 hours) at 11/07/2019 0910 Last data filed at 11/07/2019 0819 Gross per 24 hour Intake 600 ml Output 1650 ml Net -1050 ml Drain: SDD, left frontal - 0 mL GEN:NAD, resting comfortably in bed, watching TV NEURO:A+Ox3 Speech fluent and appropriate. Naming and repetition intact. PERRL. EOMI. Visual doty full to confrontation. No facial asymmetry Tongue midline MOTOR: Full strength. He is able to sign his name well again this morning and is very excited aboutthat RUE:08/22 LUE:08/22 RLE: 08/22 LLE: 08/22 No pronator drift LT sensation intact x [address] L frontal [address]D in place, dressing c/d/i LABS: Recent Labs 11/07/19 0113 11/06/19 0125 11/05/19 0116 WBC 6.6 7.4 7.8 HGB 13.5* 13.1* 13.0* PLATELET 187 179 175 Recent Labs 11/07/19 0113 11/06/19 0125 11/05/19 0116 NA 139 140 139 K 4.1 4.0 4.2 CL 106 109* 107 CO2 23 21* 22 BUN 16 12 11 CREATININE 0.96 0.96 0.91 No results for input(s): PT, INR in the last 72 hours. IMAGING: EXAMINATION: CT HEAD WO CONTRAST (GENERIC) IMPRESSION Decreased size of the left subdural hemorrhage, with associated decreased left to right midline shift currently measuring 8 mm previously 10 mm. ?? A/P: Josue Nguyen is a 74 y.o. male with PMH of HTN, HLD, and DM with progressively worsening RIGHT sided weakness found to have a large LEFT frontal/parietal mixed attenuation SDH. His waxing andwaning mental status on presentation raised concern for possible seizures and he was placed on vEEG- there have been no seizures to date. A L SEPS was placed the day after admission and was replacedby a SDD the following day after output was minimal. On the 2-3 days following SDD placement, a substantial amount of chronic blood was evacuated. It started to taper and has minimal output today. He is now s/p MMA embo on the L and was found to have a L parietal dAVF on angiography. Plan to remove the SDD today and for endovascular treatment of dAVF tomorrow. Problem List: Large a/cSDH, LEFT L parietal dAVF Seizures ruled out HTN HLD TIIDM Plan: -Q2H neuro checks, NSCU status -Remove SDD today -AEDs per Neurology; Keppra 500 BID -Hold ap/ac -Activity as tolerated -May require crani for SDH evac - plan to be updated as hospital course continues -NPO, mIVFs for dAVF treatment tmrw DISPO: [facility] [place] FULL CODE For question please call NS pager [phone] Charlene Louis MD 11/07/2019 Clinical Documentation Improvement: Active Hospital Problems Diagnosis ??? SDH (subdural hematoma) Resolved Hospital Problems No resolved problems to display. * Tu Reyes MD - 11/06/2019 8:00 AM EDT NEUROSURGERY PROGRESS NOTE ID: Josue Nguyen is a 74 y.o. male with PMH of HTN, HLD, and DM with progressively worsening RIGHT sided weakness found to have a large LEFT frontal/parietal mixed attenuation SDH. Found to have left dAVF (Isadora 3) on DSA. 11/02/19: L SEPS placement 11/03/19: L SDD placement (SEPS removed) 11/03/19: L MMA embo (incidental dAVF) INTERVAL Hx: - ANDREA - Minimal output from SDD, Flushed on rounds MEDICATIONS: Scheduled Meds: ??? famotidine 40 mg Oral BID ??? sodium chloride 0.9 % (flush) 5 mL Intravenous BID ??? lisinopriL 5 mg Oral Daily ??? metFORMIN 1,000 mg Oral BID WC ??? sodium chloride 0.9 % (flush) 5 mL Intravenous BID ??? levETIRAcetam 500 mg Oral BID Or ??? levETIRAcetam 500 mg Intravenous BID ??? insulin lispro 1-5 Units Subcutaneous TID AC Continuous Infusions: ??? sodium chloride 0.9% 100 mL/hr (11/06/19 0851) PRN: calcium carbonate, senna-docusate, polyethylene glycoL (MIRALAX) oral powder, bisacodyL, sodium chloride 0.9 % (flush), lidocaine, oxyCODONE, sodium chloride 0.9 % (flush), lidocaine, ondansetron OR ondansetron, acetaminophen OR acetaminophen, labetalol, hydrALAZINE, glucose 40% oral geL OR dextrose 10% OR glucagon (human recombinant) EXAM: Temp: [36.3 ??C (97.3 ??F)-37.2 ??C (98.9 ??F)] Heart Rate: [50-75] Resp: [14-23] BP: (117-153)/(53-80) SpO2: [93 %-98 %] Heart Rate from SpO2: [50 bpm-74 bpm] I/O: Intake/Output Summary (Last 24 hours) at 11/06/2019 1234 Last data filed at 11/06/2019 0813 Gross per 24 hour Intake 2573 ml Output 2190 ml Net 383 ml Drain: None GEN:NAD NEURO:A+Ox3 Speech fluent and appropriate. Naming and repetition intact. PERRL. EOMI. Visual doty full to confrontation. No facial asymmetry Tongue midline MOTOR: Full strength today RUE:5/5 LUE:5/5 RLE: 5/5 LLE: 5/5 No pronator drift LT sensation intact x 4 L frontal SDD in place, dressing c/d/i LABS: Recent Labs 11/06/19 01211/05/19 01111/04/19 0348 WBC 7.4 7.8 8.0 HGB 13.1* 13.0* 13.4* PLATELET 179 175 171 Recent Labs 11/06/19 0125 11/05/19 0116 11/04/19 0348 NA 140 139 141 K 4.0 4.2 4.3 CL 109* 107 107 CO2 21* 22 23 BUN 12 11 10 CREATININE 0.96 0.91 0.91 No results for input(s): PT, INR in the last 72 hours. IMAGING: EXAMINATION: CT HEAD WO CONTRAST (GENERIC) IMPRESSION Decreased size of the left subdural hemorrhage, with associated decreased left to right midline shift currently measuring 8 mm previously 10 mm. ?? A/P: Josue Nguyen is a 74 y.o. male with PMH of HTN, HLD, and DM with progressively worsening RIGHT sided weakness found to have a large LEFT frontal/parietal mixed attenuation SDH. His waxing andwaning mental status on presentation raised concern for possible seizures and he was placed on vEEG- there have been to seizures to date. A L SEPS was placed the day after admission and was replacedby a SDD the following day after output was minimal. Today, the drainage has been substantial. It will be left in place and flushed as needed until the output slows. He is now s/p MMA embo on the L and was found to have a L parietal dAVF on angiography. Neurologically stable today. Planning for endo vascular treatment of dAVF likely teusday. Problem List: Large a/cSDH, LEFT L parietal dAVF Possible seizures HTN HLD TIIDM Plan: -Q2H neuro checks, NSCU status -Will likely remove drain today -AEDs per Neurology; Keppra 500 BID -Hold ap/ac -Activity as tolerated -Hold anticoagulation -May require crani for SDH evac - plan to be updated as hospital course continues DISPO: [facility] [place] FULL CODE For question please call [facility] [place] pager [phone] Tu Reyes MD 11/06/2019 Clinical Documentation Improvement: Active Hospital Problems Diagnosis ??? SDH (subdural hematoma) Resolved Hospital Problems No resolved problems to display. * Nilesh Oh RN - 11/05/2019 6:43 PM EDT OUTCOME EVALUATION NOTE: OUTCOME SUMMARY: Pt A+O x 4 with no neurologic changes throughout shift. Pt with AVSS. Pt with no complaints of pain. Pt with positive BM this morning. Pt SDD with no output for shift. Pt with complaint of nausea after BM and treated with PRN zofran. This intervention with positive effect. Pt sleeping in between checks. BG 60 at 1600 check. Given 120 mL of OJ and with positive effect responded with a BG of 78. PLAN MOVING FORWARD: Q2 neuro/vitals Monitor output Encourage safety INDIVIDUALIZED FALL PREVENTION INTERVENTIONS: bed alarm, education to use call reddy, clutter free environment Patient-specific fall risk factors per assessment: generalized weakness, SDD Assistance: SBA Supervision: Arms reach Surveillance: Bed locked in low position, call reddy within reach, purposeful hourly rounding, clutter free environment, bed/chair alarm on, family at bedside Patient-specific fall prevention interventions for sensory deficits provided: Yes CPG GOAL OUTCOME EVALUATION: Continue care plan as documented. * Masoud Babcock MD - 11/05/2019 10:14 AM EDT NEUROSURGERY PROGRESS NOTE ID: Josue Nguyen is a 74 y.o. male with PMH of HTN, HLD, and DM with progressively worsening RIGHT sided weakness found to have a large LEFT frontal/parietal mixed attenuation SDH. Found to have left dAVF (Isadora 3) on DSA. 11/02/19: L SEPS placement 11/03/19: L SDD placement (SEPS removed) 11/03/19: L MMA embo (incidental dAVF) INTERVAL Hx: - Substantial output - rCTH with reduction in SDH, but still substantial - ?RUE weakness overnight resolved this AM - Neuro stable - No complaints MEDICATIONS: Scheduled Meds: ??? famotidine 40 mg Oral BID ??? sodium chloride 0.9 % (flush) 5 mL Intravenous BID ??? lisinopriL 5 mg Oral Daily ??? metFORMIN 1,000 mg Oral BID WC ??? sodium chloride 0.9 % (flush) 5 mL Intravenous BID ??? levETIRAcetam 500 mg Oral BID Or ??? levETIRAcetam 500 mg Intravenous BID ??? insulin lispro 1-5 Units Subcutaneous TID AC Continuous Infusions: ??? sodium chloride 0.9% 100 mL/hr (11/03/19 0352) PRN: calcium carbonate, senna-docusate, polyethylene glycoL (MIRALAX) oral powder, bisacodyL, sodium chloride 0.9 % (flush), lidocaine, oxyCODONE, sodium chloride 0.9 % (flush), lidocaine, ondansetron OR ondansetron, acetaminophen OR acetaminophen, labetalol, hydrALAZINE, glucose 40% oral geL OR dextrose 10% OR glucagon (human recombinant) EXAM: Temp: [36 ??C (96.8 ??F)-36.8 ??C (98.2 ??F)] Heart Rate: [49-60] Resp: [11-17] BP: (121-154)/(53-85) SpO2: [93 %-99 %] Heart Rate from SpO2: [50 bpm-60 bpm] I/O: Intake/Output Summary (Last 24 hours) at 11/05/2019 1014 Last data filed at 11/05/2019 0600 Gross per 24 hour Intake 1222 ml Output 1050 ml Net 172 ml Drain: None GEN:NAD NEURO:A+Ox3 Speech fluent and appropriate. Naming and repetition intact. PERRL. EOMI. Visual doty full to confrontation. No facial asymmetry Tongue midline MOTOR: Full strength today RUE:5/5 LUE:5/5 RLE: 5/5 LLE: 5/5 R pronator drift LT sensation intact x [address] in place, dressing c/d/i R INTERNAL SPECIALIST access site c/d/i, no hematoma, leg warm LABS: Recent Labs 11/05/19 0116 11/04/19 0348 11/03/19 0526 WBC 7.8 8.0 7.4 HGB 13.0* 13.4* 13.7 PLATELET 175 171 187 Recent Labs 11/05/19 0116 11/04/19 0348 11/03/19 0526 NA 139 141 140 K 4.2 4.3 4.3 CL 107 107 106 CO2 22 23 24 BUN 11 10 13 CREATININE 0.91 0.91 0.99 Recent Labs 11/02/19 2303 PT 11.4 INR 1.0 IMAGING: EXAMINATION: CT HEAD WO CONTRAST (GENERIC) IMPRESSION Decreased size of the left subdural hemorrhage, with associated decreased left to right midline shift currently measuring 8 mm previously 10 mm. ?? A/P: Josue Nguyen is a 74 y.o. male with PMH of HTN, HLD, and DM with progressively worsening RIGHT sided weakness found to have a large LEFT frontal/parietal mixed attenuation SDH. His waxing andwaning mental status on presentation raised concern for possible seizures and he was placed on vEEG- there have been to seizures to date. A L SEPS was placed the day after admission and was replacedby a SDD the following day after output was minimal. Today, the drainage has been substantial. It will be left in place and flushed as needed until the output slows. He is now s/p MMA embo on the L and was found to have a L parietal dAVF on angiography. He has no detectable weakness on exam today. P mirlande to maintain SDD today, mobilize, and establish treatment of his dAVF. Problem List: Large a/cSDH, LEFT L parietal dAVF Possible seizures HTN HLD TIIDM Plan: -Q2H neuro checks, NSCU status -Maintain SDD to gravity; flush PRN -AEDs per Neurology; Keppra 500 BID -Hold ap/ac -Activity as tolerated -Hold anticoagulation -May require crani for SDH evac - plan to be updated as hospital course continues DISPO: [facility] FULL CODE For question please call NSGY pager [phone] Masoud Babcock MD 11/05/2019 Clinical Documentation Improvement: Active Hospital Problems Diagnosis ??? SDH (subdural hematoma) Resolved Hospital Problems No resolved problems to display. * Charlene Louis MD - 11/04/2019 12:29 PM EDT NEUROSURGERY PROGRESS NOTE ID: Josue Nguyen is a 74 y.o. male with PMH of HTN, HLD, and DM with progressively worsening RIGHT sided weakness found to have a large LEFT frontal/parietal mixed attenuation SDH. 11/02/19: L SEPS placement INTERVAL Hx: - SEPS replaced by SDD yesterday - Substantial output - rCTH with reduction in SDH, but still substantial - Now s/p L MMA embo w incidental finding of L parietal dAVF MEDICATIONS: Scheduled Meds: ??? sodium chloride 0.9 % (flush) 5 mL Intravenous BID ??? lisinopriL 5 mg Oral Daily ??? metFORMIN 1,000 mg Oral BID WC ??? sodium chloride 0.9 % (flush) 5 mL Intravenous BID ??? levETIRAcetam 500 mg Oral BID Or ??? levETIRAcetam 500 mg Intravenous BID ??? insulin lispro 1-5 Units Subcutaneous TID AC Continuous Infusions: ??? sodium chloride 0.9% 100 mL/hr (11/03/19 0352) PRN: calcium carbonate, senna-docusate, polyethylene glycoL (MIRALAX) oral powder, bisacodyL, sodium chloride 0.9 % (flush), lidocaine, oxyCODONE, sodium chloride 0.9 % (flush), lidocaine, ondansetron OR ondansetron, acetaminophen OR acetaminophen, labetalol, hydrALAZINE, glucose 40% oral geL OR dextrose 10% OR glucagon (human recombinant) EXAM: Temp: [36 ??C (96.8 ??F)-36.7 ??C (98.1 ??F)] Heart Rate: [50-71] Resp: [11-19] BP: (110-154)/(45-81) SpO2: [84 %-100 %] Heart Rate from SpO2: [50 bpm-71 bpm] I/O: Intake/Output Summary (Last 24 hours) at 11/04/2019 1229 Last data filed at 11/04/2019 1200 Gross per 24 hour Intake 1749 ml Output 2780 ml Net -1031 ml Drain: None GEN:NAD NEURO:A+Ox3 Speech fluent and appropriate. Naming and repetition intact. PERRL. EOMI. Visual doty full to confrontation. No facial asymmetry Tongue midline MOTOR: Full strength today RUE:5/5 LUE:5/5 RLE: 5/5 LLE: 5/5 R pronator drift LT sensation intact x 4 [address] in place, dressing c/d/i R INTERNAL SPECIALIST access site c/d/i, no hematoma, leg warm LABS: Recent Labs 11/04/19 0348 11/03/19 0526 11/02/19 2303 WBC 8.0 7.4 8.6 HGB 13.4* 13.7 13.2* PLATELET 171 187 177 Recent Labs 11/04/19 0348 11/03/19 0526 11/02/19 0101 NA 141 140 141 K 4.3 4.3 4.0 CL 107 106 107 CO2 23 24 26 BUN 10 13 12 CREATININE 0.91 0.99 1.12 Recent Labs 11/02/19 2303 11/01/19 2114 PT 11.4 12.4 INR 1.0 1.1 IMAGING: EXAMINATION: CT HEAD WO CONTRAST (GENERIC) IMPRESSION Decreased size of the left subdural hemorrhage, with associated decreased left to right midline shift currently measuring 8 mm previously 10 mm. ?? A/P: Josue Nguyen is a 74 y.o. male with PMH of HTN, HLD, and DM with progressively worsening RIGHT sided weakness found to have a large LEFT frontal/parietal mixed attenuation SDH. His waxing andwaning mental status on presentation raised concern for possible seizures and he was placed on vEEG- there have been to seizures to date. A L SEPS was placed the day after admission and was replacedby a SDD the following day after output was minimal. Today, the drainage has been substantial. It will be left in place and flushed as needed until the output slows. He is now s/p MMA embo on the L and was found to have a L parietal dAVF on angiography. He has no detectable weakness on exam today. P mirlande to maintain SDD today, mobilize, and establish outpatient treatment of his dAVF. Problem List: Large a/cSDH, LEFT L parietal dAVF Possible seizures HTN HLD TIIDM Plan: -Q2H neuro checks, NSCU status -Maintain SDD to gravity; flush PRN -AEDs per Neurology; Keppra 500 BID -Hold ap/ac -Activity as tolerated -Hold anticoagulation -May require crani for SDH evac - plan to be updated as hospital course continues -Outpatient tx of L parietal dAVF For question please call NSGY pager [phone] Charlene Louis MD 11/04/2019 Clinical Documentation Improvement: Active Hospital Problems Diagnosis ??? SDH (subdural hematoma) Resolved Hospital Problems No resolved problems to display. * Hussain Christianson MD - 11/04/2019 11:29 AM EDT Interventional Neuroradiology Note Chief Complaint: subdural hematoma History of present illness: Josue Nguyen is a 74 y.o. man admitted for subdural hematoma who underwent drainage and middle meningeal artery embolization yesterday. 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 He is generally feeling well after his treatments yesterday with the exception of continued substantial pain in his right shoulder. PMH: Past Medical History: Diagnosis Date ??? Diabetes mellitus ??? Hypertension No current facility-administered medications on file prior to encounter. Current Outpatient Medications on File Prior to Encounter Medication Sig Dispense Refill ??? lisinopriL (Prinivil;Zestril) 5 mg Tablet Take 5 mg by mouth daily. ??? metFORMIN (GLUCOPHAGE) 1,000 mg Tablet Take 1,000 mg by mouth 2 times daily (with meals). Imaging studies: Angiogram shows a Cognard III arteriovenous fistula along the left inferior parietal and occipital lobes. It is supplied by branches of the occipital artery and squamous branches of the middle meningeal artery. Frontoparietal branches of the middle meningeal artery were embolized yesterday. Venous drainage is to the superior sagittal sinus and to the vein of Michael. 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 Such lesions pose a substantial risk of intracerebral hemorrhage over time. This lesion is not located in proximity to the recent subdural hematoma but it is possible that it was in someway contributory to that hemo rrhage. Endovascular therapy is the preferred first-line method of treatment and carries a risk of approximately 3%. Given the relatively low risk of treatment at high risk of hemorrhage I have recommended embolization of the fistula to him and he is in agreement with proceeding. It seems prudent to treat this as soon as we can make the appropriate arrangements during this hospitalization. Plan: Transarterial embolization of left Cognard III dural AVF * Savi Gibbs RN - 11/03/2019 7:39 PM EDT 1717 pt out to pacu restless trying to get up. Staff redirecting pt unsuccessfully. Additional helpneeded at bedside. Iv site flushed and patent. Art line present. Donohue present. Drain on left side of head intact, clean and dry. Pt to be kept flat in bed. Knee immobilizer placed on pt. 1834 Anesthesia paged to bedside pt becoming increasingly restless additional medication given. 1929 pt resting on bed. Awakens when touched and name called. Quickly falls asleep. Nasal cannula in place. 2108 iv site noted to be leaking iv team paged for assessment of site. Pt is alert and oriented x4.Knee immoblizer remains in place. 2119 paged pharmacy for pt's keppra dose. Awaiting arrival. Paged pt has increasing headache 2124 iv team at bedside. New med orders received. * Noemi Goldman RN - 11/03/2019 6:51 PM EDT 1845) Covering patient for dinner break. Neuro paged to come and evaluate patient. Patient disoriented and combative during PACU stay requiring Precedex by Anesthesia for safety. No neuro focus noted. Patient very strong with all extremities. Confused as to place and time. Alert to person and . Awaiting NS for orders and evaluation. Cristina HAYES * Lizzeth Salazar - 11/03/2019 6:37 PM EDT Called to bedside as patient is attempting to climb out of bed and is only AOx1 to self. He is moving all extremities with equal strength but of note his R and L pupil are 1mm different insize (not previously reported in notes) but reactive to light. CN3-12 grossly intact. Patient asking to go to work and complaining of urge to urinate. Labs reviewed and unremarkable. Suspect deliriumat this time. Precedex 16mcg given and 4 restraints placed. Will attempt to avoid any further benzo or anticholinergics. Ask to continue redirecting patient as much as possible. * Amor Singletary DO - 11/03/2019 5:59 PM EDT I saw Mr. Nguyen in the PACU. He is post-procedure day #0 status post left MMA embolization for an acute on chronic left subdural hematoma. Per nursing and Anesthesiology at bedside, the patient was thrashing about while recovering from GA and had kicked one of the nursing staff. He ended up receiving Precedex just prior to my seeing him. The staff that had been trying to restrain him prior to my arrival stated he had been moving all four extremities quite well. When I saw him, he was lying supine in bed with his eyes shut. He did not open his eyes to voice or pain, but he did localize to pain. He followed commands by squeezing both hands and wiggling toes on both feet. Pupils were equal, round, and reactive to light. His right INTERNAL SPECIALIST access site was soft with a C/D/I dressing. Amor Singletary DO 11/03/2019 6:06 PM * Lucille Stewart RN - 11/03/2019 5:02 PM EDT Angio only post procedure: Time sheath removed: 1649 Side: Right groin Closure device used: Mynx Hematoma present? No Site release time: 1701 Anticipated up time: 1901 * Lucille Stewart RN - 11/03/2019 2:53 PM EDT ANGIO NURSING DATABASE Name: JOSUE NGUYEN Date of : 1945 AGE: 74 y.o. [address]: [address] [place] [id number] (home) [phone] (work) Mobile: Telephone Information: Referring Provider: Devonte Brown REASON FOR VISIT: Left MMA Order Questions Answers Is the patient on anticoagulant / anitplatelet therapy ? No Reason for exam and clinical history: LEFT subdural hematoma Does patient require sedation? GA Is the patient taking any anticoagulants and/or antiplatelet meds? No Is patient awake, alert, and consentable? Yes Does patient need assist to stand? Yes Does Patient have any mobility limitations (e.g. spinal precautions) No Does patient require constant supervision? No Is patient over 450 lbs (200 kg) No If cardiac monitoring, can EKG leads be removed? Yes Does patient have a pacemaker? No Does patient have a Chest Tube? No Is there a language / communication barrier? No Plan Planned procedure: LEFT middle meningeal artery embolization (11/02/191699) Labs to be performed day of procedure: No labs (11/02/191699) Sedation: Anesthesia (11/02/191699) Prophylactic antibiotic : None (11/02/191699) Contrast: Omnipaque (11/02/191699) Additional medications for procedure: Lidocaine;Other (see comments)(heparin, nitroglycerin, and verapamil) (11/02/191699) Medications to discontinue (and days held): None (11/02/191699) Planned access site: Right radial artery (11/02/191699) Position: Supine (11/02/191699) Cytopathology presence needed: No (11/02/191699) Consent: Completed (11/02/191699) No Known Allergies Pertinent PMH: Patient Active Problem List Diagnosis Code ??? Basal cell carcinoma C44.91 ??? Tinea pedis B35.3 ??? SDH (subdural hematoma) S06.5X9A Date/Procedure Meds given/comments 11/03/19 Cerebral angiogram with Left MMA embolization Anesthesia Laboratory Results: Lab Results Component Value Date INR 1.0 11/02/2019 Lab Results Component Value Date CREATININE 0.99 11/03/2019 Lab Results Component Value Date K 4.3 11/03/2019 Lab Results Component Value Date PLATELET 187 11/03/2019 * Radha Frank RN - 11/03/2019 5:07 AM EDT OUTCOME EVALUATION NOTE: OUTCOME SUMMARY: Assumed care patient at 1900. Patient intermittently A + O x 4, but was disoriented to place x 1 during shift. Following commands, but intermittently has difficulties with coordination using his hands. Clear speech. Right facial droop present. L pupil 1mm smaller than R pupil, but both are brisk, round and reactive to light. Patient endorses decreased sensation in right upper extremity. At the beginning of shift patient endorsed 8/10 head ache after the administration of Tylenol. He stated that he felt like he was unable to move his head. 1x order of IV dilaudid given per order withgood relief. Head CT obtained at this time. SEPS drain in place with minimal output of serosanguinous fluid. IV fluids running per order for hydration. Veeg in place, no events overnight. Patient voiding adequate amounts of clear, yellow urine. Skin clean, dry and intact. Care clustered, rest promoted. Will continue to monitor. PLAN MOVING FORWARD: Q2 Neuro, Q2 VS INDIVIDUALIZED FALL PREVENTION INTERVENTIONS: Patient-specific fall risk factors per assessment: generalized weakness Assistance: 2 assist Supervision: Hands on Surveillance: Bed locked in low position, call reddy within reach, purposeful hourly rounding, clutter free environment, bed/chair alarm on Patient-specific fall prevention interventions for sensory deficits provided: N/A CPG GOAL OUTCOME EVALUATION: Continue care plan as documented. * Charlene Louis MD - 11/03/2019 3:37 AM EDT NEUROSURGERY PROGRESS NOTE ID: Josue Nguyen is a 74 y.o. male with PMH of HTN, HLD, and DM with progressively worsening RIGHT sided weakness found to have a large LEFT frontal/parietal mixed attenuation SDH. 11/02/19: L SEPS placement INTERVAL Hx: - CTH performed early d/t headaches overnight - minimally decreased size of SDH - Minimal output from SEPS - Feeling more awake - No Sz on EEG MEDICATIONS: Scheduled Meds: ??? lisinopriL 5 mg Oral Daily ??? metFORMIN 1,000 mg Oral BID WC ??? sodium chloride 0.9 % (flush) 5 mL Intravenous BID ??? docusate sodium 100 mg Oral BID ??? levETIRAcetam 500 mg Oral BID Or ??? levETIRAcetam 500 mg Intravenous BID ??? insulin lispro 1-5 Units Subcutaneous TID AC ??? ceFAZolin 1 g Intravenous Q8H Continuous Infusions: ??? sodium chloride 0.9% 100 mL/hr (11/02/19 0854) PRN: sodium chloride 0.9 % (flush), lidocaine, ondansetron OR ondansetron, acetaminophen ORacetaminophen, labetalol, hydrALAZINE, glucose 40% oral geL OR dextrose 10% OR glucagon (human recombinant) EXAM: Temp: [36 ??C (96.8 ??F)-36.7 ??C (98.1 ??F)] Heart Rate: [48-59] Resp: [12-22] BP: (107-141)/(47-78) SpO2: [96 %-98 %] Heart Rate from SpO2: [48 bpm-62 bpm] I/O: Intake/Output Summary (Last 24 hours) at 11/03/2019 0338 Last data filed at 11/03/2019 0200 Gross per 24 hour Intake 1464 ml Output 1570 ml Net -106 ml Drain: None GEN:NAD, wide awake, appears comfortable NEURO:A+Ox3 Speech fluent and appropriate. Naming and repetition intact. PERRL. EOMI. Visual doty full to confrontation. No facial asymmetry Tongue midline MOTOR: RUE:4/5 LUE:5/5 RLE: 4+/5 LLE: 5/5 R pronator drift LT sensation intact x [address] in place, c/d/i w minimal amt of dark blood in the bulb LABS: Recent Labs 11/02/19 2303 11/02/1910011/01/192113 WBC 8.6 7.7 6.2 HGB 13.2* 13.6* 13.6* PLATELET 177 176 185 Recent Labs 11/02/1910011/01/192113 NA 141 138 K 4.0 3.9 CL 107 103 CO2 26 23 BUN 12 14 CREATININE 1.12 0.92 Recent Labs 11/02/19 2303 11/01/19 2114 PT 11.4 12.4 INR 1.0 1.1 IMAGING: EXAMINATION: CT HEAD WO CONTRAST (GENERIC) IMPRESSION Minimally decreased size of the left holohemispheric subdural hemorrhage, but with unchanged 10 mm left to right midline shift. No uncal herniation. A/P: Josue Nguyen is a 74 y.o. male with PMH of HTN, HLD, and DM with progressively worsening RIGHT sided weakness found to have a large LEFT frontal/parietal mixed attenuation SDH. His waxing andwaning mental status on presentation raised concern for possible seizures and he was placed on vEEG- there have been to seizures to date. A L SEPS was placed yesterday and is draining minimally. Josue may require a craniotomy for subdural hematoma evacuation, which will be discussed with Dr. Singh this morning. Problem List: Large a/cSDH, LEFT Possible seizures HTN HLD TIIDM Plan: -Q2H neuro checks, [facility] status -Maintain SEPS drain to full bulb suction for now -AEDs per Neurology; Keppra 500 BID -Hold ap/ac -Activity as tolerated -Hold anticoagulation -May require crani for SDH evac - plan to be updated For question please call NSGY pager [phone] Charlene Louis MD 11/03/2019 Clinical Documentation Improvement: Active Hospital Problems Diagnosis ??? SDH (subdural hematoma) Resolved Hospital Problems No resolved problems to display. * Charlene Louis MD - 11/02/2019 1:14 PM EDT [facility] Middle Meningeal Embolization Trial Enrollment The study (Middle Meningeal Artery Embolization for Treatment of Chronic Subdural Hematomas - A randomized control trial, IRB ID [id number], Approved 02/03/19 by [facility]) was discussed and explained to the patient. The consent was reviewed with the patient by Charlene Louis MD . The study andfollow-up procedures were explained to the patient. All questions were answered. The consent was signed by Josue Nguyen on 11/02/19 around 1000. One copy of the approved consent (approved 02/03/2019) was given to the patient and one copy will be scanned into [facility] and kept on file. NIHSS 1.a. Level of consciousness: 0-Alert 1-Not alert, but arousable with minimal stimulation 2-Not alert, requires repeat stimulation to attend 3-Coma 1.b. Ask patient the month and their age: 0-Answers both correctly 1-Answers one correctly 2-Both incorrect 1.c. Ask patient to open and close eyes: 0-Obeys both correctly 1-Obeys one correctly 2-Both incorrect 2. Best gaze (horizontal eye movement): 0-Normal 1-Partial gaze palsy 2-Forced deviation 3. Visual field testin-No visual field loss 1-Partial hemianopia 2-Complete hemianopia 3-Bilateral hemianopia (blind including cortical blindness) 4. Facial paresis (Ask patient to show teeth or raise eyebrows and close eyes tightly): 0-Normal symmetrical movement 1-Minor paralysis (flattened nasolabial fold, asymmetry on smiling) 2-Partial paralysis (total or near paralysis of lower face) 3-Complete paralysis of one or both sides (absence of facial movement in the upper and lower face) 5. Motor function right arm: 0-Normal (extends arm 90 degrees for 10 seconds without drift) 1-Drift 2-Some effort against gravity 3-No effort against gravity 4-No movement 9-Untestable (Joint fused or limb amputated) 5. Motor function- left arm: 0-Normal (extends arm 90 degrees for 10 seconds without drift) 1-Drift 2-Some effort against gravity 3-No effort against gravity (but baseline) 4-No movement 9-Untestable (Joint fused or limb amputated) 6. Motor function right le-Normal (extends leg 30 degrees for 5 seconds without drift) 1-Drift 2-Some effort against gravity 3-No effort against gravity 4-No movement 9-Untestable (Joint fused or limb amputated) 6. Motor function-left le-Normal (extends leg 30 degrees for 5 seconds without drift) 1-Drift 2-Some effort against gravity 3-No effort against gravity 4-No movement 9-Untestable (Joint fused or limb amputated) 7. Limb ataxia: 0-No ataxia 1-Present in one limb 2-Present in two limbs 8. Sensory (Use pinprick to test arms, legs, trunk and face compare side to side): 0-Normal 1-Mild to moderate decrease in sensation 2-Severe to total sensory loss 9. Best language (describe picture, name items, read sentences): 0-No aphasia 1-Mild to moderate aphasia 2-Severe aphasia 3-Mute 10. Dysarthria (read several words): 0-Normal articulation 1-Mild to moderate slurring of words 2-Near unintelligible or unable to speak 9-Intubated or other physical barrier 11. Extinction and inattention: 0-Normal 1-Inattention or extinction to bilateral simultaneous in one of the sensory modalities 2-Severe aspen-inattention or aspen-inattention to more than one modality TOTAL SCORE: 5 Modified Chariton Scale (mRS) 0 - No symptoms. 1 [...] bedridden, incontinent. 6 - . *Bold score Charlene Louis MD 11/02/2019 1:18 PM [facility] Neurosurgery Inpatient Pager: [phone] Personal Pager: [phone] * Charlene Louis MD - 11/02/2019 9:22 AM EDT NEUROSURGERY PROGRESS NOTE ID: Josue Nguyen is a 74 y.o. male with PMH of HTN, HLD, and DM with progressively worsening RIGHT sided weakness found to have a large LEFT frontal/parietal mixed attenuation SDH. INTERVAL Hx: - On vEEG - Awake, alert, and oriented this morning MEDICATIONS: Scheduled Meds: ??? lisinopriL 5 mg Oral Daily ??? metFORMIN 1,000 mg Oral BID WC ??? docusate sodium 100 mg Oral BID ??? levETIRAcetam 500 mg Oral BID Or ??? levETIRAcetam 500 mg Intravenous BID ??? insulin lispro 1-5 Units Subcutaneous TID AC Continuous Infusions: ??? sodium chloride 0.9% 100 mL/hr (11/02/19 0854) PRN: ondansetron OR ondansetron, acetaminophen OR acetaminophen, labetalol, hydrALAZINE, glucose 40% oral geL OR dextrose 10% OR glucagon (human recombinant) EXAM: Temp: [36 ??C (96.8 ??F)-36.8 ??C (98.2 ??F)] Heart Rate: [47-68] Resp: [13-23] BP: (99-151)/(53-100) SpO2: [95 %-98 %] Heart Rate from SpO2: [48 bpm-60 bpm] I/O: Intake/Output Summary (Last 24 hours) at 11/02/2019 0922 Last data filed at 11/02/2019 0800 Gross per 24 hour Intake 991 ml Output 800 ml Net 191 ml Drain: None GEN:NAD, wide awake NEURO:A+Ox3 Speech fluent and appropriate. Naming and repetition intact. PERRL. EOMI. Visual doty full to confrontation. No facial asymmetry Tongue midline MOTOR: RUE:4/5 LUE:5/5 RLE: 4/5 LLE: 5/5 R pronator drift LT sensation intact x 4 LABS: Recent Labs 11/02/19 01011/01/192113 WBC 7.7 6.2 HGB 13.6* 13.6* PLATELET 176 185 Recent Labs 11/02/19 0101 11/01/192113 NA 141 138 K 4.0 3.9 CL 107 103 CO2 26 23 BUN 12 14 CREATININE 1.12 0.92 Recent Labs 11/01/192113 PT 12.4 INR 1.1 IMAGING: None new. A/P: Josue Nguyen is a 74 y.o. male with PMH of HTN, HLD, and DM with progressively worsening RIGHT sided weakness found to have a large LEFT frontal/parietal mixed attenuation SDH. His waxing andwaning mental status on presentation raised concern for possible seizures and he was placed on vEEG. This is pending review. This morning he is wide awake and oriented x4. We will attempt bedside drainage today. Problem List: Large a/cSDH, LEFT Possible seizures HTN HLD TIIDM Plan: -Q2H neuro checks, [facility] status -Talk w about bedside drainage; plan for SEPS drain -Con't w EEG -AEDs per Neurology; Keppra 500 BID for now -Hold ap/ac -Bedrest For question please call NSGY pager [phone] Charlene Louis MD 11/02/2019 Clinical Documentation Improvement: Active Hospital Problems Diagnosis ??? SDH (subdural hematoma) Resolved Hospital Problems No resolved problems to display. * Radha Frank RN - 11/02/2019 6:31 AM EDT Josue Nguyen arrived to [facility] @ 0000 from ED. Oriented to room, call reddy within reach, educated on importance of using prior to getting OOB, AVSS,belongings updated in eDH, bed locked in low position, purposeful hourly rounding, bed/chair alarm on. Upon Arrival to the unit patient A + O x 4. Following commands. Clear speech with delayed responsesand notable expressive aphasia. PERRLA. Right facial droop noted. Decreased strength noted in rightupper and lower extremities. Patient endorses decreased sensation in right upper extremity. Patientnoted be to having difficulty with coordination when asked to squeeze this RN's hands. After patient slept, coordination appeared to improve. Video EEG applied to patient for 24 hour monitoring. Patient sinus bradycardic. SBP maintained < 160 mmHg. 100 mL/hr of 0.9% NaCl infusing per order for hydration. Pt voiding adequate amounts of clear, yellow urine in the urinal. Care clustered, rest promoted. Will continue to monitor. documented in this encounter H&P Notes * Masoud Babcock MD - 11/10/2019 11:06 AM EDT 24-HOUR UPDATE Josue Nguyen was seen in [facility]. The patient's history and physical exam have been reviewed and completed. There has been no interval change from that of the pre-operative history and physical exam done within the last 30 days. Denies angina/dyspnea/fevers or malaise within the last 14 days. On exam, cardiac ausculatation reveals RRR and lungs CTAB All questions were answered. Stable for surgery as scheduled. * Hussain Christianson MD - 11/02/2019 4:59 PM EDT Images from the original note were not included. NEUROINTERVENTIONAL RADIOLOGY FOCUSED H&P and PRE-PROCEDURE NOTE: PCP: Shyam Harvey MD Referring Provider: Devonte Brown Planned Procedure: Planned procedure: LEFT middle meningeal artery embolization Procedure Indication: LEFT subdural hematoma, acute on chronic Presenting Diagnosis/ Complaint: Josue Nguyen is a 74 y.o. male with HTN, HLD, DM2 with a mixed attenuation LEFT subdural hematoma on outside facility ([facility]) CT of the head on 10/31 from. Due to right-sided weakness a LEFT subdural drain was placed on 11/01. JULISA has been consulted for LEFT MMA embolization. Past Medical/Surgical History: Patient Active Problem List Diagnosis Code ??? Basal cell carcinoma C44.91 ??? Tinea pedis B35.3 ??? SDH (subdural hematoma) S06.5X9A Past Medical History: Diagnosis Date ??? Diabetes mellitus ??? Hypertension Past Surgical History: Procedure Laterality Date ??? TONSILLECTOMY Medications: No current facility-administered medications on file prior to encounter. Current Outpatient Medications on File Prior to Encounter Medication Sig Dispense Refill ??? lisinopriL (Prinivil;Zestril) 5 mg Tablet Take 5 mg by mouth daily. ??? metFORMIN (GLUCOPHAGE) 1,000 mg Tablet Take 1,000 mg by mouth 2 times daily (with meals). Allergies: Patient has no known allergies. Social History and Habits: Social History Socioeconomic History ??? Marital status: [...] Years: 50.00 Pack years: 50.00 Types: Cigarettes Last attempt to quit: 2002 Years since quittin.5 Substance and Sexual Activity ??? Alcohol use: Not on file ??? Drug use: Not on file ??? Sexual activity: Not on file Lifestyle ??? Physical activity Days per week: Not on file Minutes per session: Not on file ??? Stress: Not on file Relationships ??? Social connections Talks on phone: Not on file Gets together: Not on file Attends amish service: Not on file Active member of [...] Social History Narrative ??? Not on file Significant Family History: No family history on file. Pertinent ROS: as per HPI Labs: Lab Results Component Value Date WBC 7.7 11/02/2019 HCT 40.6 11/02/2019 PLATELET 176 11/02/2019 INR 1.1 11/01/2019 BUN 12 11/02/2019 CREATININE 1.12 11/02/2019 K 4.0 11/02/2019 Imagin/14 Physical Exam: General: No distress. Pulmonary: Unlabored breathing on room air. Mental Status/Cognitive: Alert. Follows commands. Answers questions appropriately. Speech: Fluent. Appropriate. Cranial Nerves: CN II - Visual acuity and doty grossly intact bilaterally. PERRL. CN III, IV, - EOMI. CN VII - No facial asymmetry. Coordination: Heel-jung intact. Motor: RIGHT pronator drift. Tone: Normal. Power: RUE: 4/5 LUE: 5/5 RLE: 4/5 LLE: 5/5 Consent: The planned procedure (and sedation plan if appropriate) , its benefits and risks, and alternatives were discussed with the patient. The patient consented to the procedure. Sedation Plan: anesthesia Assessment: 74 y.o. male with HTN, HLD, DM2 with a mixed attenuation LEFT subdural hematoma on outside facility ([facility]) CT of the head on 10/31 from. Due to right-sided weakness a LEFT subdural drain was placed on 11/01. JULISA has been consulted for LEFT MMA embolization. Plan: Plan Planned procedure: LEFT middle meningeal artery embolization Labs to be performed day of procedure: No labs Sedation: Anesthesia Prophylactic antibiotic : None Contrast: Omnipaque Additional medications for procedure: Lidocaine, Other (see comments)(heparin, nitroglycerin, and verapamil) Medications to discontinue (and days held): None Planned access site: Right radial artery Position: Supine Cytopathology presence needed: No Consent: Completed 11/02/2019 I met with Mr. Nguyen today. He is alert and oriented but does have some occasional word finding difficulty and mild right arm drift. His head pain is improved. A SEPS has been placed but there has been little change in the size of the collection to date. \We discussed the nature of the embolization and I was able to answer his few questions. Hopefully we will be able to do this procedure early this afternoon. * aMty Mcfadden APRN - 11/01/2019 8:38 PM EDT Neurosurgery Inpatient H&P/Consultation Note Date & Time of Consult: 11/01/2019 8:38 PM Referring Service: Emergency Medicine Referring Attending: Dr. Troy Neurosurgery Attending: Dr. Singh Place of Consult: ED08 ID: Name: Josue Nguyen, 74 y.o. male Admission Date: 11/01/2019 CC: SDH HPI: History is obtained from [facility] ED records and partially from patient. This is a 74 y.o. male with PMH of HTN, HLD, and DM who presented to the ED at [facility] after having anoutpatient CT scan that was found to have a large LEFT sided, mixed attenuation SDH. The patient had presented to his PCP with a 2-3 week history of progressively worsening RIGHT upper and lower extremity weakness and periods of confusion where he feels like he is losing time. He was also noted on exam to have a RIGHT facial droop. He denies any recent or remote falls. Denies headache, nausea, vomiting, numbness, paresthesias, LOC, difficulties with balance, visual or auditory symptoms. Denies bowel or bladder symptoms. No history of anticoagulation or antiplatelets. PMH: HTN HLD DM No past surgical history on file. Medications: No current facility-administered medications on file prior to encounter. Current Outpatient Medications on File Prior to Encounter Medication Sig Dispense Refill ??? Red Yeast Rice Extract 600 mg Cap ??? omeprazole (PRILOSEC OTC) 20 mg tablet ??? CIS Free Text Med - zyflamend ??? ibuprofen (ADVIL;MOTRIN) 800 mg tablet Scheduled Meds: Continuous Infusions: ??? sodium chloride 0.9% PRN Meds:. Allergies: No Known Allergies Family Hx: No family history on file. Social Hx: Social History Socioeconomic History ??? Marital status: [...] on file Tobacco Use ??? Smoking status: Not on file Substance and Sexual Activity ??? Alcohol use: Not on file ??? Drug use: Not on file ??? Sexual activity: Not on file Lifestyle ??? Physical activity Days per week: Not on file Minutes per session: Not on file ??? Stress: Not on file Relationships ??? Social connections Talks on phone: Not on file Gets together: Not on file Attends amish service: Not on file Active member of club or organization: Not on file Attends meetings of clubs or organizations: Not on file Relationship status: Not on file ??? Intimate partner violence Fear of current or ex partner: Not on file Emotionally abused: Not on file Physically abused: Not on file Forced sexual activity: Not on file Other Topics Concern ??? Not on file Social History Narrative ??? Not on file Tobacco: Quit 2002 Denies alcohol/illicit drug use Vitals: Vitals: 11/01/19 1915 11/01/19192911/01/19194411/01/191999 BP: 132/57 131/69 136/75 128/71 Patient Position: Pulse: 57 59 58 54 Resp: 18 23 20 21 Temp: TempSrc: SpO2: 97% 98% 98% 97% Weight: Height: ROS: See HPI Physical Exam: -Gen: Patient found in ED patient room having climbed out of the stretcher while the siderails wereup. -HEENT: ATNC -CV: S1S2 RRR no MRG -Resp: Even, unlabored, CTA bilterally -GI: Soft, non-tender, non-distended, (+) BS -Neuro: Mental Status/Cognitive: Awake, alert, oriented x3 GCS: 15 Speech: Slightly dysarthric, occasional nonsensical speech. Names 3/3 objects and repetition intact. Cranial Nerves: PERRL 3mm reactive bilaterally CN II - Unable to assess visual doty CN III, IV, - EOMI CN V - Sensation intact in V1,2 and 3 distributions CN VII - Slight RIGHT facial droop CN VIII - Intact hearing bilaterally to finger rub CN IX, X - Palate and uvula midline CN XI - Trapezius 5/5 bilat CN XII - Tongue midline Tone: Normal Power: No pronator drift Segment Muscle Action Left Right C5 Deltoid Shoulder Abduction 5 4 C6 Biceps Elbow flexion 5 4 C6 Extensor carpi radialis Wrist extension 5 4 C7 Triceps Elbow extension 5 4 C8 Finger flexors Grasp 5 4 T1 Interossei Finger abduction 5 4 L2 Iliopsoas Hip flexion 5 4 L3 Quadriceps Knee extension 5 4 L4 Tibialis anterior Dorsiflexion 5 4 L5 Extensor hallucis Great toe extension 5 4 S1 Gastrocnemius Plantar flexion 5 4 Gait: Not assessed Sensation in the extremities: Light touch: Intact x 4 Cerebellar exam: Slight RIGHT dysmetria Labs: No results for input(s): WBC, HGB, PLATELET in the last 72 hours. No results for input(s): NA, K, CL, CO2, BUN, CREATININE in the last 72 hours. No results for input(s): PT, INR in the last 72 hours. Imaging: CT Head 11/01/19 OSH: LEFT frontal/parietal SDH acute/subacute SDH with midline shift of approx 1.5cm Assessment: This is a 74 y.o. male with PMH of HTN, HLD, and DM with progressively worsening RIGHT sided weakness found to have a large LEFT frontal/parietal mixed attenuation SDH. On exam he is answering orientation questions appropriately but seems intermittently confused with slightly dysarthric speech and mild RIGHT sided weakness. Plan: -Admit to Neurosurgery, Dr. Singh -Close neurological observation, q2H checks -Consult to Neurology re: vEEG monitoring for possible seizures -BP control, keep SBP<160 -Hold anticoagulation/antiplatelets/SCDs while in bed for DVT ppx -Keppra 1 gram now, then 500mg BID -NPO for now, give meds -Hold metformin, fingersticks with RISS for glucose control -Bedrest I have reviewed the above with Dr. Randhawa, who agrees with the assessment and plan. documented in this encounter Procedure Notes * Osbaldo Judge MD - 11/08/2019 11:29 PM EDT [facility] Department of Neurology Critical Care Continuous EEG Report Patient: Josue Nguyen, [id number] Date: 11/08/19 Start Time: 11/08/19 20:39 End Time: 11/09/19 02:09 Fellow: Osbaldo Judge MD Attending: Vishal Whitman MD History: 74 yo M with a large left SDH s/p SEPS on 11/02/19. EEG for episodes of confusion concerning for seizures. Methods: A 21 channel digitized electroencephalogram was performed in the Neurologic Critical Care Unit by the [facility] Clinical Neurophysiology Laboratory. The 10/20 international system of electrode placement was used and bipolar and referential electrode montages were recorded. Video was recorded during the session. Background Symmetry Symmetric Continuity Continuous Breach Present Absent PDR Present 9-10Hz Background EEG Frequency > or equal to Alpha AP Gradient Present Present Variability Present Reactivity Present Voltage Normal Stage II Sleep Transients Present but abnormal; sleep spindle consistently attenuated on the left parasagittal region Periodic/Rhythmic Patterns No Sporadic Epileptiform Discharges Prevalence Rare (<1/h) Interpretation This EEG is abnormal due to: 1. Attenuation of lower amplitude faster frequency activity such as sleep spindle over left parasagittal region CLINICAL CORRELATION: This abnormal EEG is suggestive of a left hemispheric structural lesion that is consistent with theknown SDH. No epileptiform discharges or seizures. Osbaldo Judge MD 11/08/2019 11:29 PM Personal pager: [phone] Epilepsy Fellow Associated attestation - Wild Whitman MD - 11/14/2019 4:45 PM EDT EPILEPSY ATTENDING ADDENDUM - I reviewed the EEG with the ASSISTANT BRAND MANAGER/Epilepsy fellow, and I agree with the interpretation as documented. Wild Whitman MD, PhD Paint Process Engineer of Neurology [facility] Epilepsy [place] Clinical Neurophysiology Laboratory * Osbaldo Judge MD - 11/03/2019 10:07 PM EDT [facility] Department of Neurology Critical Care Continuous EEG Report Patient: Josue Nguyen, [id number] Date: 11/03/19 Start Time: 11/03/19 07:30 End Time: 11/03/19 13:10 Fellow: Osbaldo Judge MD Attending: Vinnie Gary MD PhD History: 74 yo M with a large left SDH s/p evacuation and episodes of confusion concerning for seizures. Methods: A 21 channel digitized electroencephalogram was performed in the Neurologic Critical Care Unit by the [facility] Clinical Neurophysiology Laboratory. The 10/20 international system of electrode placement was used and bipolar and referential electrode montages were recorded. Video was recorded during the session. Background Symmetry Symmetric Continuity Continuous Breach Present Absent PDR Present 9-10Hz Background EEG Frequency > or equal to Alpha AP Gradient Present Present Variability Present Reactivity Present Voltage Normal Stage II Sleep Transients Present and normal Periodic/Rhythmic Patterns No Sporadic Epileptiform Discharges Prevalence Rare (<1/h) Interpretation This EEG is normal during awake and sleep states. CLINICAL CORRELATION: Normal EEG. No events. No seizures. Osbaldo Judge MD 11/03/2019 10:07 PM Personal pager: [phone] Epilepsy Fellow Associated attestation - Vinnie Gary Jr., MD - 11/04/2019 4:36 PM EDT I have reviewed the EEG with the fellow and agree with the assessment above. Vinnie Gary MD, PhD Department of Neurology Personal Pager #[phone] 11/04/2019 4:36 PM * Charlene Louis MD - 11/03/2019 12:14 PM EDT [facility] NEUROSURGERY OPERATIVE NOTE Patient: Josue Nguyen : 1945 DATE OF PROCEDURE: 11/03/2019 ATTENDING SURGEON: Dr. Casey Singh MD RESIDENT SURGEON: Dr. Charlene louis MD PREOPERATIVE DIAGNOSIS: LEFT subdural hematoma (SDH) POSTOPERATIVE DIAGNOSIS: Same OPERATION/PROCEDURE: 1. Modification of previous twist drill craniostomy for subdural drain placement 2. Subdural drain placement ANESTHESIA: 1. 1 mg Ativan 2. Local anesthetic with 1% Xylocaine with epinephrine. INDICATIONS: LEFT SEPS drain placement was attempted yesterday with minimal output and only minimal improvement on repeat CTH. In order to evacuate the blood and remove the pressure from the brain, a subdural drain is indicated. The risks, benefits and alternatives including but not limited to bleeding, infection, malplacement, new or worsening neurological deficit, reaccumulation of the SDH, failure of the cameron bdural drain to evacuate the SDH, and acute SDH accumulation were discussed with the patient and their family at which point they wished to proceed and written informed consent was obtained. DESCRIPTION OF PROCEDURE: The patient was placed supine with HOB at 30 degrees in the neutral position. A [place] Time-Out Protocol was performed, and the operative side was appropriately identified physically and confirmedwith radiographic imaging. The area of the L frontal SEPS drain was cleaned with Chlorhexidine and injected with 6 mL of local anesthetic. The SEPS was removed. Chronic subdural blood was seen to be pulsating from the craniostomy. The area was cleaned again with Chlorhexidine x2 and the area was draped in usual sterile fashion. The pedro pablo hole was revised to a more oblique angle using the twist drill to enable safe passage of the subdural drain. The subdural space was accessed with the sharp end of the trocar and the catheter was then inserted in the planned trajectory, aiming posteriorly towards the abundance of the extra axial fluid collection. On the first pass, dark colored fluid was expressed through the catheter. However, only 5 cm of the catheter was able to be advanced until resistance was met. The catheter was removed and soft passed again, but met resistance again. There were noattempts to overcome this barrier. Dark, chronic appearing blood was easily flowing into the catheter. It was left at 5 cm. The trocar was then attached to the catheter and passed laterally, anteriorly under the scalp and out through the skin. The trocar was then cut off the catheter and a cap was placed on the catheter. The incision was then closed with 3-0 nylon. The catheter was secured to theskin with 3-0 prolene suture. The surgical drapes were removed. A tegaderm was then placed over thecatheter. The catheter end was then hooked up to the draining system. This marked the end of the procedure. The patient tolerated the procedure well without any complications. ESTIMATED BLOOD LOSS: Approximately <5 mL. DRAIN: Medtronic Cook 1.9 ventricular catheter placed in the subdural space MEDICATIONS: 1. 1 mg Ativan 2. 6 mL of 1% Xylocaine with epinephrine 3. Ancef already running from prior procedure IMPLANTS: None SPECIMEN: None COMPLICATIONS: None COUNTS: Correct at the end of the procedure. Plan: -SDD to gravity secured to bedside -CT head tomorrow morning -Monitor and record output q4 -Page if output becomes clear (indicating CSF) -Maintain NPO until after MMA embolization is complete Charlene Louis MD 11/03/19 12:14 PM * Osbaldo Judge MD - 11/02/2019 12:38 PM EDT [facility] Department of Neurology Critical Care Continuous EEG Report Patient: Josue Nguyen, [id number] Date: 11/03/19 Start Time: 11/02/19 07:30 End Time: 11/03/19 07:30 Fellow: Osbaldo Judge MD Attending: Vinnie Gary MD PhD History: 74 yo M with a large left SDH s/p evacuation and episodes of confusion concerning for seizures. Methods: A 21 channel digitized electroencephalogram was performed in the Neurologic Critical Care Unit by the [facility] Clinical Neurophysiology Laboratory. The 10/20 international system of electrode placement was used and bipolar and referential electrode montages were recorded. Video was recorded during the session. Background Symmetry Symmetric Continuity Continuous Breach Present Absent PDR Present 9-10Hz Background EEG Frequency > or equal to Alpha AP Gradient Present Present Variability Present Reactivity Present Voltage Normal Stage II Sleep Transients Present and normal Periodic/Rhythmic Patterns No Sporadic Epileptiform Discharges Prevalence Rare (<1/h) Interpretation This EEG is normal during awake and sleep states. CLINICAL CORRELATION: Normal EEG. No events. Of note, there was episodes of a possibly mild bradycardia on the ECG. No seizures. Osbaldo Judge MD 11/03/2019 12:38 PM Personal pager: [phone] Epilepsy Fellow Associated attestation - Vinnie Gary Jr., MD - 11/03/2019 1:04 PM EDT I have reviewed the EEG with the fellow and agree with the assessment above. Vinnie Gary MD, PhD Department of Neurology Personal Pager #[phone] 11/03/2019 1:04 PM * Charlene Louis MD - 11/02/2019 12:05 PM EDT [facility] NEUROSURGERY OPERATIVE NOTE Patient: Josue Nguyen : 1945 DATE OF PROCEDURE: 11/02/2019 ATTENDING SURGEON: Dr. Casey Singh MD CORRESPONDENCE TRANSCRIBER SURGEON: Dr. Charlene Louis MD PREOPERATIVE DIAGNOSIS: LEFT Subdural Hematoma (SDH) POSTOPERATIVE DIAGNOSIS: LEFT Subdural Hematoma (SDH) OPERATION/PROCEDURE: 1. Twist drill pedro pablo hole for evacuation of subdural hematoma 2. Subdural Evacuating Port System (SEPS) drain placement ANESTHESIA: 1. 0.3mg IV Dilaudid 2. Local anesthetic with 1% Xylocaine with epinephrine INDICATIONS: It was felt that the SDH was the contributing factor for the patient's neurological deficit. In order to evacuate the blood and remove the pressure from the brain, a subdural drain is indicated. The risks, benefits and alternatives including but not limited to bleeding, infection, malplacement, new or worsening neurological deficit, reaccumulation of the SDH, failure of the subdural drain to evacuate the SDH, and acute SDH accumulation were discussed with the patient and their family at which point they wished to proceed and written informed consent was obtained. DESCRIPTION OF PROCEDURE: The patient was placed supine with HOB at 30 degrees in the neutral position. A [place] Time-Out Protocol was performed, and the operative side was appropriately identified physically and confirmedwith radiographic imaging. The proposed incision site was marked and the hair around the incision was shaved with clippers. The surgical site was prepped with ChloraPrep. The surgical site was then appropriately draped, the incision site again remarked and infiltrated with 1% Xylocaine with epinephrine. The anesthetic effect of the Xylocaine was confirmed. The incision was made using a #15 blade and carried down to the periosteal layer. The periosteal layer was then bluntly dissected. The twist drill was then utilized to create a pedro pablo hole in the cranium. After the subdural space was accessedvia an 18G needle x3, the SEPS mounting bolt was then screwed into the skull at the site of the pedro pablo hole. The TRANG drain tubing was then attached to the mounting bolt, which was then connected to the TRANG bulb, and placed to full bulb suction. The dark colored blood, consistent with the patient's subdural hematoma, was then observed to advance into the drain tubing. The drain site was then wrapped with sterile xeroform, gauze, and tape. The patient tolerated the procedure well, and the pain was adequately controlled throughout the procedure. ESTIMATED BLOOD LOSS: Approximately <5 mL. DRAIN: SEPS drain. MEDICATIONS: 1. 0.3 mg Dilaudid 2. 1% Xylocaine with epinephrine 3. Ancef 2gm IV x1 before the start of the procedure IMPLANTS: None SPECIMEN: Non. COMPLICATIONS: None COUNTS: Correct at the end of the procedure. PLAN: -Repeat Head CT in am -Ancef until the drain is d/c -Monitor/Record output -Advance diet as tolerated -Mobilize as tolerated Charlene Louis MD 11/02/19 12:06 PM Associated attestation - Casey Singh MD - 11/02/2019 8:38 PM EDT Attestation: I was present and I participated during the entire procedure (does not need to include opening and closing). Casey Singh MD 11/02/2019 * Osbaldo Judge MD - 11/02/2019 11:12 AM EDT [facility] Department of Neurology Critical Care Continuous EEG Report Patient: Josue Nguyen, [id number] Date: 11/02/19 Start Time: 11/02/19 03:13 End Time: 11/02/19 07:30 Fellow: Osbaldo Judge MD Attending: Vinnie Gary MD PhD History: 74 yo M with a large left SDH and episodes of confusion concerning for seizures. Methods: A 21 channel digitized electroencephalogram was performed in the Neurologic Critical Care Unit by the [facility] Clinical Neurophysiology Laboratory. The 10/20 international system of electrode placement was used and bipolar and referential electrode montages were recorded. Video was recorded during the session. Background Symmetry Symmetric Continuity Continuous Breach Present Absent PDR Present 9-10Hz Background EEG Frequency > or equal to Alpha AP Gradient Present Present Variability Present Reactivity Present Voltage Normal Stage II Sleep Transients Present and normal Periodic/Rhythmic Patterns No Sporadic Epileptiform Discharges Prevalence Rare (<1/h) Interpretation This EEG is normal during awake and sleep states. CLINICAL CORRELATION: Normal EEG. No events. Of note, there was episodes of a possibly mild bradycardia on the ECG. No seizures. Osbaldo Judge MD 11/02/2019 11:12 AM Personal pager: [phone] Epilepsy Fellow Associated attestation - Vinnie Gary Jr., MD - 11/02/2019 12:56 PM EDT I have reviewed the EEG with the fellow and agree with the assessment above. This recording appearsessentially normal, aside from moderate bradycardia. Vinnie Gary MD, PhD Department of Neurology Personal Pager #[phone] 11/02/2019 12:56 PM documented in this encounter ED Notes * Alissa Garnica NRP - 11/01/2019 10:48 PM EDT Neuro provider bedside for eval * Alissa Garnica NRP - 11/01/2019 9:39 PM EDT Providers bedside for eval. Pt still alert/oriented but drowsy. Daughter Loretta updated by phone, would like update when plan is in place: [phone] * Amelie Tsang RN - 11/01/2019 9:27 PM EDT Charge nurse documentation - Patients named nurse reported change in patients condition. Patient now increasingly lethargic ontop of intermittent confusion. Patient able to verbalize his confusion reporting I know something isn't right, I just get where I don't know what's going on. Patient noted to not be following commands when nurse was putting IV in. Patient also reporting change in headache, reports headache as worstever. Neuro surge SPECIMEN TECHNICIAN paged and made aware of change in condition, ED Attending EM also aware. * Alissa Garnica NRP - 11/01/2019 9:09 PM EDT Provider reported pt was trying to climb out of bed when she came for eval. Pt currently restless and states he doesn't feel in control. Repeatedly trying to unplug and replug cell phone and dozingoff intermittently. Provider will be advised. * Kristian Macario - 11/01/2019 8:36 PM EDT Josue Nguyen is an 74 y.o. male who presents to the ED with: Chief Complaint Patient presents with ??? Hospital Transfer SDH I saw this patient 11/01/2019 at ~ 10:12 PM HPI: Josue Nguyen is a 74 y.o. male with a PMH significant for hypertension and type II diabetes [facility] for a left subdural hematoma found on CT. The patient states that for over the last four weeks he has had intermittent weakness on his right side. He describes that approximately a week ago the weakness became more consistent and more noticeable as he began needing a walker to be able to ambulate. The patient says that last night while he was eating he began having a very difficult time moving his right arm and leg for five hours which triggered him drag himself to the local hospital. He describes while at the hospital he had a CT scan of thebrain that showed a subdural hematoma. The patient is positive for numbness and tingling in his right foot and right hand, significant weakness on the right side in both the arm and leg with right foot drop, right sided face droop and difficulty with word finding. He denies headaches, vision changes, loss of consciousness, chest pain, shortness of breath, increased ease of bruising or extremity swelling. History: Medications, allergies and past medical history reviewed Medical History: Diabetes and Hypertension Surgical History: Tonsil and adenoids removed Medications: Lisinopril and metformin Allergies: NKA Social History: - 51 year 1 ppd smoking history - Occasional alcohol use - No recent drug use Review of Systems: Review of Systems Constitutional: Negative. HENT: Negative. Eyes: Negative. Right Eye Droop Respiratory: Negative. Cardiovascular: Negative. Gastrointestinal: Negative. Genitourinary: Negative. Musculoskeletal: Negative. Skin: Negative. Neurological: Negative for dizziness, light-headedness and headaches. Right facial droop. Numbness in right hand and leg. Right sided weakness and difficulty with ambulating. Difficulty with word finding. Hematological: Negative. Psychiatric/Behavioral: Negative. Vital Signs: Patient Vitals for the past 24 hrs: BP Temp Temp src Pulse Resp SpO2 Height Weight 11/01/19 2115 138/69 -- -- 54 18 95 % -- -- 11/01/192044 99/72 -- -- 68 16 97 % -- -- 11/01/191999 128/71 -- -- 54 21 97 % -- -- 11/01/19 1945 136/75 -- -- 58 20 98 % -- -- 11/01/19 1930 131/69 -- -- 59 23 98 % -- -- 11/01/191914 132/57 -- -- 57 18 97 % -- -- 11/01/191912 112/78 36.8 ??C (98.2 ??F) Oral 57 16 97 % 177.8 cm (5' 10) 86.2 kg (190 lb) I have reviewed the vital signs: mild bradycardia and tachypnea but stable. Physical Exam: Physical Exam Constitutional: Appearance: Normal appearance. Comments: fluctuating alertness HENT: Head: Normocephalic and atraumatic. Eyes: Extraocular Movements: Extraocular movements intact. Conjunctiva/sclera: Conjunctivae normal. Pupils: Pupils are equal, round, and reactive to light. Neck: Musculoskeletal: Normal range of motion. Cardiovascular: Rate and Rhythm: Normal rate and regular rhythm. Pulses: Normal pulses. Heart sounds: Normal heart sounds. Pulmonary: Effort: Pulmonary effort is normal. Breath sounds: Normal breath sounds. Abdominal: General: Abdomen is flat. Bowel sounds are normal. Palpations: Abdomen is soft. Tenderness: There is no abdominal tenderness. Musculoskeletal: Normal range of motion. Skin: General: Skin is warm and dry. Capillary Refill: Capillary refill takes less than 2 seconds. Neurological: Mental Status: He is oriented to person, place, and time. Comments: Right facial droop. 4/5 weakness on the right side in upper and lower extremities with 5/5 on the left side in upper and lower extremities. 3+ reflex in right arm. Non reactive babinksi reflex bilaterally. Sensation is intact in face, upper and lower extremities bilaterally. Psychiatric: Mood and Affect: Mood normal. Comments: He had moments of frustration that he described was due to issues with his phone. ED Course: - Patient was evaluated and discussed with Dr. Troy - Nursing notes and vital signs reviewed - Medications and fluid administered: Medications sodium chloride 0.9% infusion (100 mL/hr Intravenous New Bag 11/01/192135) levETIRAcetam (KEPPRA) 1,000 mg in sodium chloride (ISO-OSM) 100 mL (1,000 mg Intravenous Given 11/01/192051) - I have reviewed the labs, which are significant for: No significant findings. Recent Results (from the past 24 hour(s)) Basic Metabolic Panel (non-fasting) Result Value Ref Range Glucose Lvl 87 65 - 199 mg/dL BUN 14 10 - 20 mg/dL Creatinine 0.92 0.80 - 1.50 mg/dL Sodium 138 135 - 145 mmol/L Potassium 3.9 3.5 - 5.0 mmol/L Chloride 103 98 - 107 mmol/L CO2 23 22 - 31 mmol/L Anion Gap 12 5 - 15 mmol/L Calcium 9.2 8.5 - 10.5 mg/dL eGFR 82 >=60 mL/min/1.73 m?? eGFR 95 >=60 mL/min/1.73 m?? Prothrombin Time Result Value Ref Range PT 12.4 9.4 - 12.5 sec INR 1.1 APTT Result Value Ref Range PTT 30 25 - 37 sec Hemogram Result Value Ref Range WBC 6.2 4.0 - 9.5 x10(3)/mcL RBC 4.51 (L) 4.58 - 5.54 x10(6)/mcL Hemoglobin 13.6 (L) 13.7 - 16.5 gm/dL Hematocrit 41.5 40.5 - 48.5 % MCV 92.0 82.9 - 93.1 fL MCH 30.2 27.5 - 32.1 pg MCHC 32.8 32.0 - 35.7 gm/dL Platelets 185 145 - 357 x10(3)/mcL RDWSD 43.5 36.0 - 45.0 fL RDWCV 12.8 11.4 - 13.8 % MPV 10.4 7.6 - 12.9 fL nRBC % Auto 0.0 % nRBC Abs Auto 0.000 0.000 - 0.000 x10(3)/mcL Differential, Automated Result Value Ref Range Neutrophils % 49.4 % Neutr Abs (ANC) 3.05 1.70 - 6.10 x10(3)/mcL Lymphocytes % 35.6 % Lymphocytes Abs 2.2 0.9 - 3.2 x10(3)/mcL Monocytes % 8.8 % Monocyte Abs 0.5 0.3 - 0.9 x10(3)/mcL Eosinophils % 4.9 % Eosinophils Abs 0.3 0.0 - 0.4 x10(3)/mcL Basophils % 1.1 % Basophils Abs 0.1 0.0 - 0.1 x10(3)/mcL Immature Gran % 0.20 % Stacey Gran Abs 0.01 0.00 - 0.04 x10(3)/mcL Gold Tube HOLD Result Value Ref Range Gold Hold Sample in lab. Antibody screen Result Value Ref Range Expires at 2359 on: 11/04/2019 ABORH Recheck Status Result Value Ref Range ABORH Recheck Order Order Placed - I have reviewed the imaging, which is significant for: CT head from OSH shows large left subduralhematoma as described above, attenuation characteristics consistent with subacute and acute components. Maximal thickness of the subdural hematoma is about 3 cm and there is midline shift to the right estimated at 1.5- 2 cm. CXR at OSH- No evidence of acute process Film Library- Storage Only DX Chest Final Result - I have reviewed the EKG, which is significant for: No EKG at this encounter. MDM: Assessment: Mr. Nguyen is a 74 y/o male with new right sided weakness secondary to a large left subdural hematoma whose neurological exam has been stable through the ED course with possibly a slight improvement in mentation. Plan: 1. Neurosurgery Consult - Neurosurgery put in orders for patient to have a non-contrast CT and Keppra was ordered for seizure prophylaxis. - Basic labs CBC and BMP were ordered which were normal. - PT/PTT were ordered with no coagulopathy . - Type and screen was ordered. Dispo: Admit to Neurosurgery service. Kristian Macario MD Resident 11/01/19 3649 Associated attestation - Camila Troy MD - 11/03/2019 1:51 PM EDT ED ATTENDING ATTESTATION NOTE The patient was seen in conjunction with Dr. Nguyen, the resident physician. I have independently performed the rai portions of the history and physical exam. I have reviewed the nursing notes, vital signs, and all diagnostic studies personally including labs, imaging studies and EKGs. I have discussed the details of the case with the resident and agree with the assessment and plan as described inthe resident note unless noted otherwise. Brief Summary: 74-year-old male transferred from outside hospital with right- sided weakness and a large left subdural hematoma acute on chronic. This patient's exam has fluctuated mildly he is confused and has a right-sided weakness and facial droop I have discussed this with neurosurgery they willbe admitting the patient and ordering a repeat CT. Patient is otherwise stable and awaiting placement Final Assessment: Subdural hemorrhage Did this case involve critical care? Yes CRITICAL CARE DOCUMENTATION: Is there a high potential of sudden, clinically significant, or life threatening deterioration? Yes Are there life and/or organ supporting interventions that require frequent personal assessment and manipulation or support to treat/prevent vital organ failure/deterioration? yes I personally performed 40 minutes of aggregate critical care time exclusive of procedures and teaching during this emergency department visit. This includes time spent during direct patient evaluation and reassessment, interpreting diagnostic tests, directing life and/or organ supporting interventions, and documentation. * Alissa Garnica NRP - 11/01/2019 7:34 PM EDT Pt arrived from [facility] after dx of L SDH. Pt reporting 2-3 week hx of R sided weakness and increasingdifficulty ambulating. Pt denying pain, MENA, SOB, CP, G.I. issues currently but reports continued R leg weakness. Pt denies any other deficits at this time. No facial droop, arm drift or speech issuesnoted. Pt denies blood thinner usage and only reports losing balance in the bathroom once, no falls. Pt currently in position of comfort with call reddy in reach. * Nirav Romero MD - 11/01/2019 4:19 PM EDT EM attending brief transfer acceptance note: Josue Nguyen is a 74 y.o. who I accepted in transfer from Dr. Brown, [facility] ED The patient will be evaluated in the Emergency Department for right leg weakness and left SDH The EM team will contact the neurosurgery team as needed The OSH does not agree to take the patient back in transfer after our evaluation and treatment. Transfer and stabilization prior to transfer were not discussed 74 yo m who presented to the OSH ED with right leg weakness. CT revealed a large left subdural withsome midline shift. Pt. awake . Not on anticoagulation. 36.5 64 168/[address] Dr. Reyes from nsurg on the call. Pt. will be transferred to the [facility] to be seen by the ED team and by neurosurgery. Nirav Romero MD 11/01/19 1641 documented in this encounter Miscellaneous Notes * Care Management - Chhaya Olivarez RN - 11/16/2019 4:28 PM EDTSummary: Discharge planning D/C planning: Team: Neurosurg Pager: [phone] Pt to d/c to [facility] via ambulance at 5:45pm today. Pt is aware of d/c plan and isin agreement. Chhaya Olivarez MSN, RN CM [facility] Office of Care Management Pager #[phone] * Plan of Care - Kary Saeed RN - 11/16/2019 3:23 PM EDT Problem: Patient Care Overview Goal: Plan of Care Review Outcome: Ongoing (Interventions Implemented as Appropriate) 11/15/19 1900 11/16/19 0800 Coping/Psychosocial Plan Of Care Reviewed With -- patient Plan of Care Review Progress progress towards functional goals is fair -- OUTCOME EVALUATION NOTE: OUTCOME SUMMARY: A&Ox4, VSS, 1 episode of aphasia this shift. Blood sugars controlled. UOP adequate, BM this shift. Head incision C/D/I, approximated. PLAN MOVING FORWARD: Q4 neuro, Q4 vitals, discharge planning INDIVIDUALIZED FALL PREVENTION INTERVENTIONS: Patient-specific fall risk factors per assessment: Generalized weakness Assistance: SBA c walker Supervision: Arms reach Surveillance: Bed locked in low position, call reddy within reach, purposeful hourly rounding, bed/chair alarm on, clutter free room, family at bedside Patient-specific fall prevention interventions for sensory deficits provided: N/A CPG GOAL OUTCOME EVALUATION: Continue care plan as documented. * Plan of Care - Syd Kaiser PTA - 11/16/2019 11:33 AM EDT Physical Therapy Note Treatment Number PT: 4 Patient profile: Josue Nguyen is a 74 y.o. male with PMH of HTN, HLD, and DM with progressively worsening RIGHT sided weakness found to have a large LEFT frontal/parietal mixed attenuation SDH. L SEPS drain placement on 11/01. SDD placed on 11/02. LLA embolization on 11/02 Interval Events: Per Neuro surg note 11/16/19: -Neurology re-consulted for episodes suspicious for seizures -Following Depakote levels -No episodes of aphasia/dysarthria overnight -Feels better this morning Social History: Home set-up: Lives in [facility] () in an apartment Bathroom Set-up: tub shower, no bars Stairs: 3 to enter with 2 railings Baseline Mobility: independent prior Equipment at home: cane Fall history: fell a few saturdays ago in the shower Precautions/Special Considerations: NSCU monitoring, activity as tolerated, subdural drain, expressive aphasia Mobility and Positioning Recommendations: ?? Pt. to utilize FWW and 1A for ambulation and transfers with nursing. ?? Please encourage up to chair for meal times as able. Subjective: ???I'm running out of steam.?? and I am all for going to rehab Objective: Pain: Pt did not indicate having pain during session Vital Signs: VSS Bed Mobility: Supine to Sit: NT Sit to Supine: NT Transfers: Sit to Stand: CGA Stand to Sit: CGA with vc for eccentric control Gait: Distance: 150' Device used: FWW Level of assist: Alexsander, vc Gait mechanics: decreased luis a, shuffling gait, decreased R>L toe clearance, vc for FWW technique, vc to increase step length. DYNAMIC GAIT INDEX *Pt scoring will be highlighted below in bold. A score of <19/24 = predictive of falls in the elderly. A score of > 22/24 = safe community ambulator. Test Item Instructions Score Gait level surfaces Walk at your normal speed from here to the next david (20'). 3 Normal: Walks 20', no assistive device, good speed, no evidence for imbalance, normal gait pattern. 2 Mild Impairment: Walks 20', uses assistive devices, slower speed, mild gait deviations. 1 Mod Impairment: Walks 20', slow speed, abnormal gait pattern, evidence for imbalance. 0 Severe Impairment: Cannot walk 20' without assistance, severe gait deviations or imbalance. Change in gait speed Begin walking at your normal pace (for 5'), when I tell you go, walk as fastas you can (for 5'). When I tell you slow, walk as slowly as you can (fro 5'). 3 Normal: Able to smoothly change walking speed without loss of balance or gait deviation. Shows a significant difference in walking speeds between normal, fast and slow speeds. 2 Mild Impairment: Is able to change speed but demonstrates mild gait deviations, or not gait deviations but unable to achieve a significant change in velocity, or uses an assistive device. 1 Mod Impairment: Makes only minor adjustments to walking speed, or accomplishes a change in speed with significant gait deviations, or changes speed but has significant gait deviations, or changes speed but loses balance but is able to recover and continue walking. 0 Severe Impairment: Cannot change speeds, or loses balance and has to reach for wall or be caught. Gait with horizontal head turns Begin walking at your normal pace. When I tell you to look right,keep walking straight, but turn your head to the right. Keep looking to the right until I tell you,look left, then keep walking straight and turn your head to the left. Keep your head to the left until I tell you look straight, then keep walking straight, but return your head to the center. 3 Normal: Performs head turns smoothly with no change in gait. 2 Mild Impairment: Performs head turns smoothly with slight change in gait velocity, i.e., minor disruption to smooth gait path or uses walking aid. 1 Mod Impairment: Performs head turns with moderate change in gait velocity, slows down, staggers but recovers, can continue to walk. 0 Severe Impairment: Performs tasks with severe disruption of gait, i.e., staggers outside 15 path, loses balance, stops, reaches for wall. Gait with vertical head turns Begin walking at your normal pace. When I tell you to look up, keepwalking straight, but tip your head up. Keep looking up until I tell you, look down, then keep walking straight and tip your head down. Keep your head down until I tell you look straight, then keep walking straight, but return your head to the center. 3 Normal: Performs head turns smoothly withno change in gait. 2 Mild Impairment: Performs head turns smoothly with slight change in gait velocity, i.e., minor disruption to smooth gait path or uses walking aid. 1 Mod Impairment: Performs head turns with moderate change in gait velocity, slows down, staggers but recovers, can continue to walk. 0 Severe Impairment: Performs task with severe disruption of gait, i.e., staggers outside 15 path,loses balance, stops, reaches for wall. Gait and pivot turn Begin walking at your normal pace. When I tell you, turn and stop, turn as quickly as you can to face the opposite direction and stop. 3 Normal: Pivot turns safely within 3 seconds and stops quickly with no loss of balance. 2 Mild Impairment: Pivot turns safely in >3 seconds and stops with no loss of balance. 1 Mod Impairment: Turns slowly, requires verbal cueing, requires several small steps to catch balance following turn and stop. 0 Severe Impairment: Cannot turn safely, requires assistance to turn and stop. Step over obstacle Begin walking at your normal speed. When you come to the shoebox, step over it, not around it, and keep walking. 3 Normal: Is able to step over the box without changing gait speed,no evidence of imbalance. 2 Mild Impairments: Is able to step over the box, but mush slow down and adjust steps to clear box safely. 1 Moderate Impairment: Is able to step over box but must stop, then step over. May require verbal cueing. 0 Severe Impairment: Cannot perform without assistance. Step around obstacle Begin walking at normal speed. When you come to the first cone (about 6' away), walk around the right side of it. When you come to the second cone (6' past first cone), walk around it to the left. 3 Normal: Is able to walk around cones safely without changing gait speed; no evidence of imbalance. 2 Mild Impairment: Is able to step around both cones, but must slow down and adjust steps to clear cones. 1 Mod Impairment: Is able to clear cones but must significantly slow speed to accomplish task, or requires verbal cueing. 0 Severe Impairment: Unable to clear cones, walks into one or both cones, or requires physical assistance. Steps Walk up theses stairs as you would at home, i.e., using the railing if necessary. At the top,turn around and walk down. 3 Normal: Alternating feet, no rail. 2 Mild Impairment: Alternating feet, must use rail. 1 Mod Impairment: Two feet to a stair, must use rail. 0 Severe Impairment: Cannot do safely. FINAL SCORE: 15/24 Note: After test, pt had two instances of loss of balance while turning requiring Alexsander to prevent fall. Possibly r/t fatigue References: 1. Norma Romo, Ellie Romo, Carlos Hairston. Reliability of the Dynamic Gait Index in individuals with neurological disorders, Disabil Rehabil. 2012; 34(19): 0351-0782. 2. Rajinder PK, Maryann NK, Ghazala AM, et al. Sensitivity to Change and Responsiveness of Four Balance Measures for Community-Dwelling Older Adults, [employer] Agent. 2012; 92: 388-397. 3. Marcus DEVINE. Vestibular Rehabilitation. 2nd ed. [place], [place]: [employer]; 1999. 4. Gustavo Rose. Motor Control Theory and Applications, [employer] [place], 1995: [phone] Education: patient has been educated on Bed mobility, Transfers, Assistive device/technique, Gait ,Role of therapy, Balance and Discharge planning and needs reinforcement. understanding. Patient status, treatment, and mobility recommendations discussed with nursing. Assessment: Josue Nguyen was seen today for continued physical therapy treatment and assessment.Patient presented to physical therapy today with frustration with regards to his expressive aphasia, but was able to follow 100% single step commands. Pt continues to mobilize with multiple gait deviations most pronounced on the RLE, as well as balance deficits. Performed the Dynamic Gait Index today, where pt scored a 15/24 indicating a fall risk. Also observed pt attempting to perform simple tasks using RUE, such as opening doors and plugging in cell phone, where pt was unsuccessful due to decreased strength and dexterity. Pt currently far below prior level of function and lives alone. Pt wo uld tolerate and benefit highly from an intensive multi-disciplinary rehabilitation approach at time of discharge. Discharge Recommendations: Based on the current findings, Anticipated Discharge Disposition: inpatient acute rehabilitation when medically ready for hospital discharge. Consult Recommendations: No other consults recommended at this time. Equipment needs: TBD Goals: To be achieved by 11/18/2019: 1. Pt. to demonstrate knowledge of safety limitations and precautions and will appropriately request assistance for functional activities and to mobilize. 2. Pt. to demonstrate understanding of appropriate LE exercises. 3. Pt. to perform bed mobility independently. 4. Pt. to perform sit to stand and stand step transfers with modified independence using LRAD. 5. Pt. to ambulate 300 feet with modified independence using a LRAD. 6. Pt. to ambulate up/down 3 step/stairs using two rails independently. 7. Pt to perform 5x sit to stand under 15s to demonstrate increased LE strength 8. Pt to perform DGI with score of >20/24 to demonstrate low fall risk Plan: Therapy Frequency: 3-5 times/wk for therapy including balance training, bed mobility training, gait training, patient/family education, stair training, strengthening, stretching and transfer training. Patient/family understand and agree with plan as stated above. Total Evaluation Minutes, Physical Therapy: 30(TEF, TEN ([id number])) Syd Kaiser, TOOL DESIGN CHECKER Pager: [phone] Physical Therapy Inpatient Rehabilitation Department * Consult Note - Shannon Garcia MD - 11/16/2019 6:10 AM EDT Neurology Progress Note 11/16/2019 Patient Name: Josue Nguyen Admit Date: 11/01/2019 Patient ID: Josue Nguyen is a 74 y.o. presenting with PMHx of HTN, HLD, DM2 who presents in transfer from [facility] with a LEFT subdural hematoma (presumed acute on chronic). Neurology has been consulted for episodes of confusion concerning for seizures. Neurology has been re-consulted for episodes of AMS and aphasia. 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 No bony deformity Neuro Exam MS: AAOx4, clear language, follows simple and complex cross body commands CN: PERRL, EOMI, visual doty full Facial sensation intact Mild right facial droop Hearing intact to voice Palate elevates symmetrically, tongue protrudes midline SCM and trap strength intact Motor: Normal bulk and tone. UE: 4/5 R, 5/5 L Arm abduction at shoulder 4/5 R, 5/5 L Elbow extension 4/5 R, 5/5 L Elbow flexion 4/5 R, 5/5 L Histological Illustrator LE: 4/5 R, 5/5 L Hip flexion 4/5 R, 5/5 L Knee extension 4/5 R, 5/5 L Knee flexion 4/5 R, 5/5 L Foot dorsiflexion 4/5 R, 5/5 L Foot plantar flexion Sensation: Intact to light touch throughout Reflexes: Babinski - R down, L down Coordination: Finger to nose intact No tremor Gait: Did not assess Labs: Recent Results (from the past 24 hour(s)) POCT Glucose Result Value Ref Range POC Glucose 111 65 - 199 mg/dL POCT Glucose Result Value Ref Range POC Glucose 109 65 - 199 mg/dL POCT Glucose Result Value Ref Range POC Glucose 104 65 - 199 mg/dL POCT Glucose Result Value Ref Range POC Glucose 108 65 - 199 mg/dL Medications: Scheduled Meds: ??? divalproex EC 750 mg Oral TID ??? senna-docusate 2 tablet Oral BID ??? busPIRone 7.5 mg Oral BID ??? melatonin 3 mg Oral Nightly ??? famotidine 40 mg Oral BID ??? lisinopriL 5 mg Oral Daily ??? insulin lispro 1-5 Units Subcutaneous TID AC Continuous Infusions: PRN Meds:.oxyCODONE OR [DISCONTINUED] oxyCODONE, BUpivacaine-EPINEPHrine, gelatin compressed, thrombin (Bovine), calcium carbonate, polyethylene glycoL (MIRALAX) oral powder, bisacodyL, ondansetron OR ondansetron, acetaminophen OR acetaminophen, labetalol, hydrALAZINE, glucose 40% oral geL OR dextrose 10% OR glucagon (human recombinant) Diagnostic Tests and Imaging: EEG 11/08/2019: This abnormal EEG is suggestive of a left hemispheric structural lesion that is consistent with theknown SDH. No epileptiform discharges or seizures. EEG (11/04/2019): Interpretation This EEG is normal during awake and sleep states.?? CLINICAL CORRELATION: Normal EEG. No events. No seizures. CT Head 11/15/19: No significant interval change. CT Head (11/02/2019): Large left sided subdural hematoma with acute anterior and older posterior/superior blood products.This collection causes a moderate midline shift with partial effacement of the left lateral ventricle posteriorly. CT Head (11/05/2019): IMPRESSION Stable examination with no interval change in size of the left subdural hematoma or associated masseffect. Assessment: Josue Nguyen is a 74 y.o. male with PMHx of HTN, HLD, DM2 who presents in transfer from [facility] with a LEFT subdural hematoma (presumed acute on chronic). Neurology has been consulted for episodes ofconfusion concerning for seizures. Increased depakote dose helped improve Josue's episodes of aphasia and weakness that were transient. I would continue current dose as he leave rehab and will follow up in clinic in 4 weeks. Recommendations: - Continue depakote 750 Q8H Consult service will continue to follow patient. X Recommendations are above, please page if further consultation required. ?? Shannon Garcia MD PGY3 Neurology Resident 11/16/2019 Neurology Consult Service Pager #[phone] Associated attestation - Amelie Hays MD - 11/17/2019 10:52 PM EDT Neurology Attending Note Amelie Hays MD (Pg [phone]) I certify that I have seen and examined Josue Nguyen on 11/16/[address] Garcia. I reviewed the resident's history and I agree with the details as written. The assessment and plan were formulated in discussion with me and I agree with them as documented. * Plan of Care - Basilia Rowe, RN - 11/16/2019 3:26 AM EDT Problem: Patient Care Overview Goal: Plan of Care Review Outcome: Ongoing (Interventions Implemented as Appropriate) 11/15/19 1900 11/15/191999 Coping/Psychosocial Plan Of Care Reviewed With -- patient Plan of Care Review Progress progress towards functional goals is fair -- OUTCOME EVALUATION NOTE: OUTCOME SUMMARY: Pt AOx4, able to make needs known and met. VSS, neurologically unchanged from previous shift. No slurring of words or increase in R pronator drift, not as significant than earlier on day shift. Pt was given PRN suppository, positive effect with moderate formed BM. Adequate urine output throughout the night. Pt states indigestion and decreased appetite tonight. Moderate headache was given prn oxycodone with positive effect of 2/10 pain relief. Intermittent cath at 0400 of a >400ml bladder scan and felt bladder fullness, output was 500ml. Will continue to monitor. PLAN MOVING FORWARD: -q4hr vital/neuro/I&O's -maintain safety INDIVIDUALIZED FALL PREVENTION INTERVENTIONS: Patient-specific fall risk factors per assessment: [current deficits]: Hospital setting Assistance [level of assistance required for transfers and ambulation]: SBA with walker Supervision [direct monitoring required during toileting and ADLs]: Minimal 1 assist Surveillance [continuous indirect monitoring]: site monitor, pulse oximetry, purposeful hourlyrounding, call reddy within reach, bed locked in low position with alarms active, clutter free environment Patient-specific fall prevention interventions for sensory deficits provided, if applicable: [X] N/A CPG GOAL OUTCOME EVALUATION: Continue care plan as documented Problem: Stroke (Hemorrhagic) (Adult) Goal: Signs and Symptoms of Listed Potential Problems Will be Absent, Minimized or Managed (Stroke) Signs and symptoms of listed potential problems will be absent, minimized or managed by discharge/transition of care (reference Stroke (Hemorrhagic) (Adult) CPG). Outcome: Ongoing (Interventions Implemented as Appropriate) 11/06/19 1530 Stroke (Hemorrhagic) Problems Assessed (Stroke (Hemorrhagic)) all Problems Present (Stroke (Hemorrhagic)) seizure activity;situational response * Plan of Care - Margie Knowles RN - 11/15/2019 7:43 PM EDT Problem: Patient Care Overview Goal: Plan of Care Review Outcome: Ongoing (Interventions Implemented as Appropriate) 11/15/19 1900 Coping/Psychosocial Plan Of Care Reviewed With patient Plan of Care Review Progress progress towards functional goals is fair OUTCOME EVALUATION NOTE: ?? OUTCOME SUMMARY: ?? Pt A+Ox4, intermittent expressive aphasia. 1300- Pt dysarthric, right pronator drift right flattened nasolabial fold, A+Ox4, PERRLA. MD notified, to bedside for evaluation. STAT head CT completed, neurology consulted. ?? PLAN MOVING FORWARD: ?? Q4 neuro/vital checks ?? INDIVIDUALIZED FALL PREVENTION INTERVENTIONS: ?? Patient-specific fall risk factors per assessment: aggitaion ?? Assistance: ??1A OOB w/ FWW ?? Supervision: Hands on ?? Surveillance: Bed locked in low position, call reddy within reach, purposeful hourly rounding, clutter free environment, bed/chair alarm on ?? CPG GOAL OUTCOME EVALUATION:? Continue care plan as documented. ? * Consult Note - Shannon Garcia MD - 11/15/2019 5:09 PM EDT Neurology Progress Note 11/15/2019 Patient Name: Josue Nguyen Admit Date: 11/01/2019 Patient ID: Josue Nguyen is a 74 y.o. presenting with PMHx of HTN, HLD, DM2 who presents in transfer from [facility] with a LEFT subdural hematoma (presumed acute on chronic). Neurology has been consulted for episodes of confusion concerning for seizures. Neurology has been re-consulted for episodes of AMS and aphasia. 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 He had it on for 4 hours before becoming aggressive and ripping off leads. The patient states he was in [place] and was tied down and the eeg leads provoked a PTSD attack. He continues to have episodes of transient aphasia with subtle RUE weakness.On 11/10, he became very frustrated and had a panic attack. His keppra 500 mg BID was changed to Depakote 500 mg TID. His levels have varied, with some being subtheraputic. Today, patient had additional symptom of dysarthria with his episode. He received CT head which shows no significant change. [facility] being consulted for AED management in the setting of worsening symptoms supicious for seizures.No EEG recording thus far has captured an event. Physical Exam: Vitals: Temp: [36.3 ??C (97.3 ??F)-37.1 ??C (98.8 ??F)] Heart Rate: [54-63] Resp: [12-19] BP: (99-151)/(50-92) SpO2: [94 %-99 %] Heart Rate from SpO2: [54 bpm-62 bpm] Gen: Patient of apparent stated age, well nourished, well developed, awake, alert, NAD Ext: No edema. No bony deformity Neuro Exam MS: AAOx4, clear language, follows simple and complex cross body commands CN: PERRL, EOMI, visual doty full Facial sensation intact Mild right facial droop Hearing intact to voice Palate elevates symmetrically, tongue protrudes midline SCM and trap strength intact Motor: Normal bulk and tone. UE: 4/5 R, 5/5 L Arm abduction at shoulder 4/5 R, 5/5 L Elbow extension 4/5 R, 5/5 L Elbow flexion 4/5 R, 5/5 L Histological Illustrator LE: 4/5 R, 5/5 L Hip flexion 4/5 R, 5/5 L Knee extension 4/5 R, 5/5 L Knee flexion 4/5 R, 5/5 L Foot dorsiflexion 4/5 R, 5/5 L Foot plantar flexion Sensation: Intact to light touch throughout Reflexes: Babinski - R down, L down Coordination: Finger to nose intact No tremor Gait: Did not assess Labs: Recent Results (from the past 24 hour(s)) Basic Metabolic Panel (non-fasting) Result Value Ref Range Glucose Lvl 113 65 - 199 mg/dL BUN 9 (L) 10 - 20 mg/dL Creatinine 0.92 0.80 - 1.50 mg/dL Sodium 138 135 - 145 mmol/L Potassium 4.2 3.5 - 5.0 mmol/L Chloride 105 98 - 107 mmol/L CO2 26 22 - 31 mmol/L Anion Gap 7 5 - 15 mmol/L Calcium 8.6 8.5 - 10.5 mg/dL eGFR 82 >=60 mL/min/1.73 m?? eGFR 95 >=60 mL/min/1.73 m?? Valproic Acid Level, Total Result Value Ref Range Valproic Lvl 47 mg/L Hemogram Result Value Ref Range WBC 5.9 4.0 - 9.5 x10(3)/mcL RBC 3.82 (L) 4.58 - 5.54 x10(6)/mcL Hemoglobin 11.8 (L) 13.7 - 16.5 gm/dL Hematocrit 35.6 (L) 40.5 - 48.5 % MCV 93.2 (H) 82.9 - 93.1 fL MCH 30.9 27.5 - 32.1 pg MCHC 33.1 32.0 - 35.7 gm/dL Platelets 235 145 - 357 x10(3)/mcL RDWSD 44.7 36.0 - 45.0 fL RDWCV 13.0 11.4 - 13.8 % MPV 10.4 7.6 - 12.9 fL nRBC % Auto 0.0 % nRBC Abs Auto 0.000 0.000 - 0.000 x10(3)/mcL Differential, Automated Result Value Ref Range Neutrophils % 57.7 % Neutr Abs (ANC) 3.41 1.70 - 6.10 x10(3)/mcL Lymphocytes % 25.8 % Lymphocytes Abs 1.5 0.9 - 3.2 x10(3)/mcL Monocytes % 13.0 % Monocyte Abs 0.8 0.3 - 0.9 x10(3)/mcL Eosinophils % 2.0 % Eosinophils Abs 0.1 0.0 - 0.4 x10(3)/mcL Basophils % 1.0 % Basophils Abs 0.1 0.0 - 0.1 x10(3)/mcL Immature Gran % 0.50 % Stacey Gran Abs 0.03 0.00 - 0.04 x10(3)/mcL POCT Glucose Result Value Ref Range POC Glucose 113 65 - 199 mg/dL POCT Glucose Result Value Ref Range POC Glucose 114 65 - 199 mg/dL POCT Glucose Result Value Ref Range POC Glucose 114 65 - 199 mg/dL Medications: Scheduled Meds: ??? divalproex EC 750 mg Oral TID ??? senna-docusate 2 tablet Oral BID ??? busPIRone 7.5 mg Oral BID ??? melatonin 3 mg Oral Nightly ??? famotidine 40 mg Oral BID ??? lisinopriL 5 mg Oral Daily ??? insulin lispro 1-5 Units Subcutaneous TID AC Continuous Infusions: PRN Meds:.oxyCODONE OR [DISCONTINUED] oxyCODONE, BUpivacaine-EPINEPHrine, gelatin compressed, thrombin (Bovine), calcium carbonate, polyethylene glycoL (MIRALAX) oral powder, bisacodyL, ondansetron OR ondansetron, acetaminophen OR acetaminophen, labetalol, hydrALAZINE, glucose 40% oral geL OR dextrose 10% OR glucagon (human recombinant) Diagnostic Tests and Imaging: EEG 11/08/2019: This abnormal EEG is suggestive of a left hemispheric structural lesion that is consistent with theknown SDH. No epileptiform discharges or seizures. EEG (11/04/2019): Interpretation This EEG is normal during awake and sleep states.?? CLINICAL CORRELATION: Normal EEG. No events. No seizures. CT Head 11/15/19: No significant interval change. CT Head (11/02/2019): Large left sided subdural hematoma with acute anterior and older posterior/superior blood products.This collection causes a moderate midline shift with partial effacement of the left lateral ventricle posteriorly. CT Head (11/05/2019): IMPRESSION Stable examination with no interval change in size of the left subdural hematoma or associated masseffect. Assessment: Josue Nguyen is a 74 y.o. male with PMHx of HTN, HLD, DM2 who presents in transfer from [facility] with a LEFT subdural hematoma (presumed acute on chronic). Neurology has been consulted for episodes ofconfusion concerning for seizures. Josue continues to have episodes of aphasia and dysarthria that may be seizures. He has had multiple EEGs without capturing any event. Last time with recording, he had an episode of aggression due to provoking his PTSD. I do not believe EEG will be benificial at this point and would only harm thepatient. Neurosurgery increased his depakote to 750 mg TID which is a large increase. We will checktrough levels tonight (order placed) and follow levels in the morning. We will adjust AEDs off Josue's clinical response. Recommendations: - Continue depakote 750 Q8H - depakote trough level (order placed by us) - follow up level in morning - daily Hemograms to monitor platelet counts X?? Consult service will continue to follow patient. Recommendations are above, please page if further consultation required. ?? Shannon Garcia MD PGY3 Neurology Resident 11/15/2019 Neurology Consult Service Pager #[phone] Associated attestation - Amelie Hays MD - 11/16/2019 4:49 PM EDT Neurology Attending Note Amelie Hays MD (Pg [phone]) I certify that I have seen and examined Josue Nguyen on 11/16/[address] Garcia. I reviewed the resident's history and I agree with the details as written. The assessment and plan were formulated in discussion with me and I agree with them as documented. * Care Management - Chhaya Olivarez RN - 11/15/2019 4:18 PM EDT Pt would like to expand search for acute rehab to include [facility]. Pt is MR for d/c. Chhaya Olivarez MSN, RN CM [facility] Office of Care Management Pager #[phone] * Plan of Care - Adia Edwards OT - 11/15/2019 11:34 AM EDT Occupational Therapy Treatment Note Treatment Number OT: 5 Patient profile: Per MD on 11/14: 74 y.o.??male??with PMH of HTN, HLD, and DM with progressively worsening RIGHT sided weakness found to have a large LEFT frontal/parietal mixed attenuation SDH. 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 His waxing and waning mental status on presentation raised concern for possible seizures and he was placed on video EEG without recorded seizure activity. He was again placed on video EEG on 11/08/19 after episodic agitation and speech arrest. He was taken for pedro pablo holes for SDH drainage 11/09 and is neurologically better post-op, however now w bouts of agitation and expressive aphasia, stable this morning. CTH demonstrates a reduction in hematoma size. Keppra was switched to Valproate which is w/in therapeutic range. Started on Buspirone for panic attacks11/13. S/p dAVF embolization 11/13. ?? Past Medical History Past Medical History: Diagnosis Date ??? Diabetes mellitus ? Hypertension ? Past Surgical History Past Surgical History: Procedure Laterality Date ??? PRO PERM OCCLUSION/EMBOLIZATION, PERCUT, QUALITY ASSOCIATE N/A 11/03/2019 ?? @TRANSCATHETER OCCLUSION/EMBOLIZATION FOR TUMOR DESTRUCTION performed by Hussain Christianson MD at [facility] ??? TONSILLECTOMY ? Social History: Patient lives alone. Home Setup: Patient lives in an apartment with three steps to enter and two railings. Patient has atub shower. DME: cane Baseline ADL/Mobility: Patient independent with ADLS and IADLs. Patient driving. Patient fell a fewdays ago prior to admit in shower. ?? Precautions/Special Considerations: fall, SCP <160, up with assistance Interval History: -Still having word finding difficulty intermittently associated with right hand clumsiness -Depakote subtherapeutic and dose increased S: I feel a bit better today O: Patient seen for skilled OT treatment, and demonstrated the following: ?? Self Care: ?? Pt don pants sitting EOB, required close supervision and cuing for safety and then CGA in standing to hike and required dependent assistance to tie pants ?? Pt supervision to CGA for standing level grooming tasks with verbal cues for pacing and safety with alternating UE support on walker or sink for ~7 minutes to perform oral care, wash dentures and wash face/hands ?? Pt CGA for stand to sit to toilet with cues for hand placement on walker ?? Pt supervision for perineal hygiene ?? Functional Mobility ?? Supine> sit EOB: supervision with use of bed features; HOB ~45 degrees towards the L ?? Pt CGA for sit to stand from bed to recliner chair with cues for sequencing ?? Pt ambulated into bathroom and back to recliner chair with FWW and CGA ?? Sit<>stand transfers CGA ?? Pt left in recliner chair with all needs within reach and chair alarm active at end of session ?? Cognition: ?? Behavior / Mood: alert, cooperative ?? Alert and oriented to: person, place, time and situation ?? Follows commands: 1 step, 100% of the time, requires increased time and requires repetition ?? Attention: distractible, difficulty attending to task/directions ?? Safety awareness: decreased insight into deficits ?? Pt noted with less word finding difficulty this session ?? Vision: ?? Glasses evp global multimedia sales Pain: 0/10 Education: Pt/family/caregiver education ongoing regarding: Role of occupational therapy/rehabilitation, Transfers, Assistive device/technique, Adaptive equipment training, ADL, Positioning, Safety, Precautions/Protocol, Functional Mobility, Activity pacing/Energy conservation, Home Program, Home Management, Balance, Recommendations and Discharge planning. Staff Communication: Patient status, treatment, and mobility recommendations discussed with nursing/other staff. ASSESSMENT: Pt seen for continuation of POC. Pt continues to require occasional CGA for safety and verbal cues for sequencing and safety with transfers and ADL routines. At this time; recommend Pt discharge to an inpatient rehab facility to maximize function secondary to Pt lives alone and would need to be completely independent prior to returning. Pt will benefit from ongoing therapeutic interventions to achieve pt's and therapy goals Anticipated Discharge Disposition: inpatient acute rehabilitation Equipment Recommendations: shower chair, FWW Other Recommendations: ?? Utilize upright chair position using bed features or transfer to recliner chair as appropriate with Minimal assistance with walker, ambulate as tolerated ?? Encourage participation in ADL's by providing set up A on tray table and physical assist only asneeded Goals: To be achieved by 11/18/19. Patient will stand at sink level with supervision x10 min for ADLs; in progress; Pt stood ~7 minutes today and noted with increased unsteadiness Patient will dress lower body indep with adaptive equipment prn. Patient will perform simple kitchen mgt with appropriate assistive device as needed and supervision. Patient will ambulate to the bathroom with supervision, assistive device as needed. Patient will remember and retrieve 5/5 items for ADL tasks independently. All goals in progress Therapy Frequency: 3-5 times/wk Total Evaluation Minutes, Occupational Therapy: 29(2 SC ) Pager: [phone] Adia Edwards OT Occupational Therapy Rehabilitation Department * Plan of Care - Margie Knowles RN - 11/14/2019 7:52 PM EDT Problem: Patient Care Overview Goal: Plan of Care Review Outcome: Ongoing (Interventions Implemented as Appropriate) 11/14/191946 Coping/Psychosocial Plan Of Care Reviewed With patient Plan of Care Review Progress progress toward functional goals as expected Pt arrived from PACU ~1610, A+Ox4, delayed responses, jumpy, easily overstimulated, began c/o 7/10 MENA, notified CHRIS Love; to bedside for evaluation. CSMT intact. Right groin dressing C/D/I. Pt calmer with time, ate dinner and rested. VSS. * Plan of Care - Adia Edwards OT - 11/14/2019 2:59 PM EDT Occupational Therapy Contact Note: Attempted to see Pt for OT services. Pt off floor for procedure. Continue POC as Pt tolerates and schedule permits. Adia Edwards MS, OTR/L Occupational Therapist Pager: [phone] Inpatient Rehabilitation Services * Consult Note - Chrissy Santana RN - 11/14/2019 4:47 AM EDT Images from the original note were not included. Infiltration/Extravasation Scale Josue Nguyen [id number] N524/[id number] Infiltration appearance: Infiltration harm % for this extremity 13% Based on measurement calculation (greatest measurement Xdivided by length of extremity multiplied by 100= %) Considerations and Rai: Consider the following: If the percentage of limb affected is 6-25% then select 2 2 Edema 1 to 6 inches (2.5 to 15 cm) in any direction Cool to touch without pain Infiltration appearance score: 2 Medication Name infiltrated is Normal Saline which is a (n) non-irritant Location of infiltration:right arm: posterior Measurement in cm of length and width of affected area---Affected extremity: 10 x 10 cm Measurement of Circumference in cm of Infiltrated area of affected extremity: Right arm circumference at wrist - 18 cm Right arm circumference at 4 cm proximal from wrist - 20 cm Right arm circumference at 10 cm proximal from wrist - 21 cm Measurement of Circumference in cm of Unaffected extremity (left arm) - (at same location as affected extremity): Left arm circumference at wrist - 18 cm Left arm circumference at 4 cm proximal from wrist - 18 cm Left arm circumference at 10 cm proximal from wrist - 20 cm Pulses present on affected extremity yes Medicated treatment given per policy/ order: no treatment indicated Plan for continued monitoring of infiltration/extravasation Name of MD contacted - neurosurg covering provider 4:47 AM Name of RN contacted - kasey Lindo RN 4:47 AM Name of Pharmacist if consulted - n/a 4:47 AM Plastics Provider contacted: no 4:47 AM Name of Plastics MD (if consulted) DE IONIZER OPERATOR CARING FOR THIS PATIENT WILL CONTINUE TO MONITOR AND WILL ASSUME CARE, VASCULAR ACCESS WILL NOT FOLLOW THIS EVENT AT THE SIGNING OF THIS NOTE. * Plan of Care - Margie Knowles RN - 11/13/2019 7:09 PM EDT Problem: Patient Care Overview Goal: Plan of Care Review Outcome: Ongoing (Interventions Implemented as Appropriate) 11/13/19 1906 Coping/Psychosocial Plan Of Care Reviewed With patient Plan of Care Review Progress progress towards functional goals is fair OUTCOME EVALUATION NOTE: ?? OUTCOME SUMMARY: ?? Pt A+Ox4, intermittent expressive aphasia. 1730- Pt globally aphasic, lasting ~10minutes, MD notified. Pt voiding frequently, notified, no new orders. Subgaleal drain removed. PLAN MOVING FORWARD: ?? [id number]/ [id number] checks NPO at midnight for embolization in IR tomorrow. ?? INDIVIDUALIZED FALL PREVENTION INTERVENTIONS: ?? Patient-specific fall risk factors per assessment: aggitaion ?? Assistance: ??1A OOB w/ FWW ?? Supervision: Hands on ?? Surveillance: Bed locked in low position, call reddy within reach, purposeful hourly rounding, clutter free environment, bed/chair alarm on ?? CPG GOAL OUTCOME EVALUATION:? Continue care plan as documented. * Plan of Care - Margie Knowles RN - 11/12/2019 7:26 PM EDT Problem: Patient Care Overview Goal: Plan of Care Review Outcome: Ongoing (Interventions Implemented as Appropriate) 11/12/191921 Coping/Psychosocial Plan Of Care Reviewed With patient Plan of Care Review Progress progress towards functional goals is fair OUTCOME EVALUATION NOTE: ?? OUTCOME SUMMARY: ?? Pt A+Ox4, intermittent expressive aphasia. 0- Pt with aphasia and confusion, MD Louis to bedside. Pt able to describe that he can feel when he isn't able to speak after episode of aphasia passed. Subgaleal drain remains in place, producing sanguinous drainage. ?? PLAN MOVING FORWARD: ?? T8whqrh/vital checks Monitor subgaleal drain ?? INDIVIDUALIZED FALL PREVENTION INTERVENTIONS: ?? Patient-specific fall risk factors per assessment: aggitaion ?? Assistance: 1A OOB w/ FWW ?? Supervision: Hands on ?? Surveillance: Bed locked in low position, call reddy within reach, purposeful hourly rounding, clutter free environment, bed/chair alarm on ?? CPG GOAL OUTCOME EVALUATION: ?? Continue care plan as documented. ?? * Plan of Care - Dawn Addison - 11/12/2019 1:15 PM EDT Occupational Therapy Treatment Note Treatment Number OT: 4 Patient profile: Josue Nguyen??is a 74 y.o.??male??with PMH of HTN, HLD, and DM with progressively worsening RIGHT sided weakness found to have a large LEFT frontal/parietal mixed attenuation SDH.??L SEPS drain placement on 11/01. SDD placed on 11/02. LLA embolization on 11/02. Pedro Pablo holes for DSH drainage 11/10/19. ?? Past Medical History Past Medical History: Diagnosis Date ??? Diabetes mellitus ? Hypertension ? Past Surgical History Past Surgical History: Procedure Laterality Date ??? PRO PERM OCCLUSION/EMBOLIZATION, PERCUT, QUALITY ASSOCIATE N/A 11/03/2019 ?? @TRANSCATHETER OCCLUSION/EMBOLIZATION FOR TUMOR DESTRUCTION performed by Hussain Christianson MD at [facility] ??? TONSILLECTOMY ? Social History: Patient lives alone. Home Setup: Patient lives in an apartment with three steps to enter and two railings. Patient has atub shower. DME: cane Baseline ADL/Mobility: Patient independent with ADLS and IADLs. Patient driving. Patient fell a fewdays ago prior to admit in shower. ?? Precautions/Special Considerations: fall, SCP <160, up with assistance, SDD Interval History: pedro pablo hold for SDH drainage yesterday S: I have more trouble with my right side. O: Patient seen for skilled OT treatment, and demonstrated the following: ?? Self Care: ?? Pt don pants sitting EOB, required close supervision and cuing for safety, pt impulsive at timesand slightly unsteady. ?? Functional Mobility ?? Supine> sit EOB: supervision with use of bed features. ?? Pt sat EOB to don pants and standing to hike and tie pants: close supervision and cues for safety and pacing. Pt attempted to tie pants several times, required therapist assist. ?? Pt ambulated ~150ft with FWW and CGA; moderate vc's for FWW management and safety. Pt impulsive frequently removing hand while continuing to mobilize. ?? Sit<>stand transfers CGA ?? Cognition: ?? Behavior / Mood: alert, cooperative and impaired task initiation ?? Alert and oriented to: person, place, time and situation ?? Follows commands: 1 step, 100% of the time, requires increased time and requires repetition ?? Attention: distractible, difficulty attending to task/directions and requires cues to redirect ?? Safety awareness: decreased insight into deficits and impulsive ?? Pt participated in the administration of the [place] Cognitive Assessment, (MOCA). Pt received a score of 22/30, with a score of 26 or greater being considered a normal score. Pt demonstrated impairments in the areas of Visospatial/ Execution, Fluency, and Delayed Recall. [place] Cognitive Assessment (MoCA) Results: Visuospatial/Exec 04/20 Trails Test 0/ Cube Copy 04/20 Clock: Contour 04/20 Clock: Numbers 0/ Clock: Hands Naming 3/3 (of 3) Attention 04/20 Repeat forward 04/20 Repeat backwards 04/20 Tapping for letter A 3/3 Serial 7 Subtraction (3pts=4+; 2pts=2+; 1pt=1) Language 2/2 Repeating Sentences Fluency 0/ Word Naming (1pt=11+ words) Abstraction 2/2 Similarities (Associations) Delayed Recall 0/5 (uncued) Orientation 04/20 Month 04/20 Date 04/20 Year 04/20 Day of the week 04/20 Location 04/20 [facility] Add 1 point if 12 years of education or less TOTAL 22/30 Score of 26 or greater considered normal ?? Vision: ?? Glasses evp global multimedia sales Pain: 0/10 Education: Pt/family/caregiver education ongoing regarding: Role of occupational therapy/rehabilitation, Transfers, Assistive device/technique, Adaptive equipment training, ADL, Positioning, Safety, Precautions/Protocol, Functional Mobility, Activity pacing/Energy conservation, Home Program, Home Management, Balance, Recommendations and Discharge planning. Staff Communication: Patient status, treatment, and mobility recommendations discussed with nursing/other staff. ASSESSMENT: Pt seen for continuation of POC. Pt greeted in bed, and feeling much better than yesterday and motivated to work with OT. Pt performed ADLs with nursing earlier in the day, and was wanting to ambulate. Pt ambulated ~150 ft with FWW and CGA; required cues for pacing and safety, pt impulsive and frequently taking off hands while continuing to ambulate. Pt completed a MOCA and received ascore of 22/30 with difficulties in Delayed Recall, Fluency and Visospatial/executive tasks. At this time; recommend Pt discharge to an inpatient rehab facility to maximize function secondary to Pt lives alone and would need to be completely independent prior to returning. Pt will benefit from ongoing therapeutic interventions to achieve pt's and therapy goals Anticipated Discharge Disposition: inpatient acute rehabilitation Equipment Recommendations: shower chair, FWW Other Recommendations: ?? Utilize upright chair position using bed features or transfer to recliner chair as appropriate with Minimal assistance with walker, ambulate as tolerated ?? Encourage participation in ADL's by providing set up A on tray table and physical assist only asneeded Goals: To be achieved by 11/18/19. Patient will stand at sink level with supervision x10 min for ADLs. Patient will dress lower body indep with adaptive equipment prn. Goal in progress Patient will perform simple kitchen mgt with appropriate assistive device as needed and supervision. Patient will ambulate to the bathroom with supervision, assistive device as needed. Goal in progress. Patient will remember and retrieve 5/5 items for ADL tasks independently. All goals in progress Therapy Frequency: 3-5 times/wk Total Evaluation Minutes, Occupational Therapy: 35(1x cog, 1x schm) ; 1 cog skills Pager: [phone] DILIP Holloway OTA Occupational Therapy Rehabilitation Department * Plan of Care - Margie Knowles RN - 11/11/2019 8:09 PM EDT Problem: Patient Care Overview Goal: Plan of Care Review Outcome: Ongoing (Interventions Implemented as Appropriate) 11/11/19 194 Coping/Psychosocial Plan Of Care Reviewed With patient Plan of Care Review Progress declining OUTCOME EVALUATION NOTE: OUTCOME SUMMARY: Pt A+Ox4, intermittent expressive aphasia and frustration/aggitation. Low stimulation and reorientation during these periods, Provider aware of aphasia. 1600- Pt apasic, prolonged/not resolving and pt agitated; CIRILO Loya to bedside 1700. STAT head CT completed. 1830 pt restless and agitated, getting OOB and difficult to reorient vest restraint ordered. Prior to vest restraint application pt voided and returned to bed calmly. 1900 MD Muñoz to bedside to assess pt; pt became agitated (yelling and getting OOB). Vest restraint not applied per MD order/order d/c'd. Requested MD call family for update. Attempted to call daughter, Loretta (point of contact) for nursing update but no answer at this time. PLAN MOVING FORWARD: L3embic/vital checks Monitor subgaleal drain INDIVIDUALIZED FALL PREVENTION INTERVENTIONS: Patient-specific fall risk factors per assessment: aggitaion Assistance: 1A OOB w/ FWW Supervision: Hands on Surveillance: Bed locked in low position, call reddy within reach, purposeful hourly rounding, clutter free environment, bed/chair alarm on CPG GOAL OUTCOME EVALUATION: Continue care plan as documented. * Care Management - Chhaya Olivarez RN - 11/11/2019 2:48 PM EDT Per team, pt not MR for d/c at this time. POD 1 requires monitor of drain output. Pt voicing that he just wants it to be over. Team discussed involving [facility] at this time r/t PMH of PTSD. Pt has referral in to [facility], who is voicing concerns about post rehab d/c plan and the fact that pt lives alone. CM will continue to monitor and assist with d/c planning as needed. Chhaya Olivarez MSN, RN CM [facility]ah[facility]ger Office of Care Management Pager #[phone] * Plan of Care - Syd Kaiser PTA - 11/11/2019 12:54 PM EDT Physical Therapy Note Treatment Number PT: 3 Patient profile: Josue Nguyen is a 74 y.o. male with PMH of HTN, HLD, and DM with progressively worsening RIGHT sided weakness found to have a large LEFT frontal/parietal mixed attenuation SDH. L SEPS drain placement on 11/01. SDD placed on 11/02. LLA embolization on 11/02 Interval Events: Per Neuro surg note 11/11/19: POD1 s/p pedro pablo hold drainage of SDH NAEON Feeling depressed this morning, stating, I just want it all to be done Social History: Home set-up: Lives in [facility] () in an apartment Bathroom Set-up: tub shower, no bars Stairs: 3 to enter with 2 railings Baseline Mobility: independent prior Equipment at home: cane Fall history: fell a few saturdays ago in the shower Precautions/Special Considerations: NSCU monitoring, activity as tolerated, subdural drain, expressive aphasia Mobility and Positioning Recommendations: ?? Pt. to utilize FWW and 1A for ambulation and transfers with nursing. ?? Please encourage up to chair for meal times as able. Subjective: ???My words... They come and go.?? Objective: Pain: Pt did not indicate having pain during session Vital Signs: VSS Bed Mobility: Supine to Sit: NT Sit to Supine: NT Transfers: Sit to Stand: CGA Stand to Sit: CGA with vc for eccentric control Gait: Distance: 150' Device used: FWW Level of assist: Alexsander, vc Gait mechanics: decreased luis a, shuffling gait, decreased R>L toe clearance, vc for FWW technique, vc to increase step length. Therapeutic Exercise: Sit<>stand x10 Standing calf press 10x2 with BUE assisting on FWW Manual resisted unilateral leg presses x10ea Education: patient has been educated on Bed mobility, Transfers, Assistive device/technique, Gait ,Role of therapy, Balance and Discharge planning and needs reinforcement. understanding. Patient status, treatment, and mobility recommendations discussed with nursing. Assessment: Josue Nguyen was seen today for continued physical therapy treatment and assessment.Patient presented to physical therapy today with increased expressive aphasia, but was able to follow 100% single step commands. Pt continues to mobilize with multiple gait deviations most pronouncedon the RLE, as well as balance deficits. Pt currently far below prior level of function, and would tolerate and benefit highly from an intensive multi- disciplinary rehabilitation approach at time of discharge. Discharge Recommendations: Based on the current findings, Anticipated Discharge Disposition: inpatient acute rehabilitation when medically ready for hospital discharge. Consult Recommendations: No other consults recommended at this time. Equipment needs: TBD Goals: To be achieved by 11/18/2019: 1. Pt. to demonstrate knowledge of safety limitations and precautions and will appropriately request assistance for functional activities and to mobilize. 2. Pt. to demonstrate understanding of appropriate LE exercises. 3. Pt. to perform bed mobility independently. 4. Pt. to perform sit to stand and stand step transfers with modified independence using LRAD. 5. Pt. to ambulate 300 feet with modified independence using a LRAD. 6. Pt. to ambulate up/down 3 step/stairs using two rails independently. 7. Pt to perform 5x sit to stand under 15s to demonstrate increased LE strength 8. Pt to perform DGI with score of >20/24 to demonstrate low fall risk Plan: Therapy Frequency: 3-5 times/wk for therapy including balance training, bed mobility training, gait training, patient/family education, stair training, strengthening, stretching and transfer training. Patient/family understand and agree with plan as stated above. Total Evaluation Minutes, Physical Therapy: 30(GT, CHANDRIKA ([phone])) Syd Kaiser PTA Pager: [phone] Physical Therapy Inpatient Rehabilitation Department * Plan of Care - Adia Edwards, OT - 11/11/2019 12:08 PM EDT Occupational Therapy Treatment Note Treatment Number OT: 3 Patient profile: Josue Nguyen??is a 74 y.o.??male??with PMH of HTN, HLD, and DM with progressively worsening RIGHT sided weakness found to have a large LEFT frontal/parietal mixed attenuation SDH.??L SEPS drain placement on 11/01. SDD placed on 11/02. LLA embolization on 11/02. Pedro Pablo holes for DSH drainage 11/10/19. ?? Past Medical History Past Medical History: Diagnosis Date ??? Diabetes mellitus ? Hypertension ? Past Surgical History Past Surgical History: Procedure Laterality Date ??? PRO PERM OCCLUSION/EMBOLIZATION, PERCUT, QUALITY ASSOCIATE N/A 11/03/2019 ?? @TRANSCATHETER OCCLUSION/EMBOLIZATION FOR TUMOR DESTRUCTION performed by Hussain Christianson MD at [facility] ??? TONSILLECTOMY ? Social History: Patient lives alone. Home Setup: Patient lives in an apartment with three steps to enter and two railings. Patient has atub shower. DME: cane Baseline ADL/Mobility: Patient independent with ADLS and IADLs. Patient driving. Patient fell a fewdays ago prior to admit in shower. ?? Precautions/Special Considerations: fall, SCP <160, up with assistance, SDD Interval History: pedro pablo hold for SDH drainage yesterday S: I just can't do this anymore, can you come later? O: Patient seen for skilled OT treatment, and demonstrated the following: ?? Functional Mobility: ?? Pt CGA for stand to sit transfers ?? Pt had recently ambulated ~150ft with FWW and CGA with SHINGLE SHEARING MACHINE OPERATOR and returning to room ?? Cognition: ?? Behavior / Mood: alert, impaired task initiation and waxing and waning cognition ?? Alert and oriented to: person, place and not otherwise assessed ?? Follows commands: 1 step, 100% of the time, requires increased time and requires repetition ?? Attention: initially difficulty attending to task ?? Safety awareness: WFL ?? Attempted to perform MOCA 7.1 * Pt noted with difficulty with visual/spatial awareness. Pt attempting the first section and then placed the pencil down and stated I can't do this. Trailed naming task; Pt 2/3, unable to name camel. Pt then did well with immediate recall of words. Initiated forward and backward chaining and Pt with continued difficulty/apraxia and aphasia with backward chaining and requested to stop. ?? Vision: ?? Glasses evp [employer] multimedia sales ?? Vitals: 107/53, HR 67, O2 98 ?? Strength/ROM: Pt encouraged to participate in FM coordination tasks and exercises stacking cups with RUE and with therasponge that were provided last session Pain: 0/10 Education: Pt/family/caregiver education ongoing regarding: Role of occupational therapy/rehabilitation, Transfers, Assistive device/technique, Adaptive equipment training, ADL, Positioning, Safety, Precautions/Protocol, Functional Mobility, Activity pacing/Energy conservation, Home Program, Home Management, Balance, Recommendations and Discharge planning. Staff Communication: Patient status, treatment, and mobility recommendations discussed with nursing/other staff. ASSESSMENT: Pt seen for OT services. Pt seen for very limited session. Pt reported fatigue from ambulating, but was agreeable to services. Attempted MOCA 7.1, however, Pt experienced difficulty and requested to defer. Pt continues to require CGA for transfers and standing level ADL routines. At this time; recommend Pt discharge to an inpatient rehab facility to maximize function secondary to Pt lives alone and would need to be completely independent prior to returning. Pt will benefit from ongoing therapeutic interventions to achieve pt's and therapy goals Anticipated Discharge Disposition: inpatient acute rehabilitation Equipment Recommendations: shower chair, FWW Other Recommendations: ?? Utilize upright chair position using bed features or transfer to recliner chair as appropriate with Minimal assistance with walker, ambulate as tolerated ?? Encourage participation in ADL's by providing set up A on tray table and physical assist only asneeded Goals: To be achieved by 11/18/19. Patient will stand at sink level with supervision x10 min for ADLs. Patient will dress lower body indep with adaptive equipment prn. Patient will perform simple kitchen mgt with appropriate assistive device as needed and supervision. Patient will ambulate to the bathroom with supervision, assistive device as needed. Patient will remember and retrieve 5/5 items for ADL tasks independently. All goals in progress Therapy Frequency: 3-5 times/wk Total Evaluation Minutes, Occupational Therapy: 10 ; 1 cog skills Pager: [phone] Adia Edwards OT Occupational Therapy Rehabilitation Department * Plan of Care - Uche East RN - 11/11/2019 4:09 AM EDT Problem: Patient Care Overview Goal: Plan of Care Review Outcome: Ongoing (Interventions Implemented as Appropriate) 11/10/19 1756 11/10/191999 Coping/Psychosocial Plan Of Care Reviewed With -- patient Plan of Care Review Progress progress toward functional goals is gradual -- OUTCOME EVALUATION NOTE: OUTCOME SUMMARY: Pt A+Ox4 overnight, status has improved to strengths 5/5 in all four extremities. Pts head was painful at the beginning of the night bc pain management had not been changed since preop. DINO MD increased pain management which has been effective in improving pts comfort, has been able to sleep most ofthe night. VSS, on RA. SR/SB on tele. Voiding in the urinal adequate amounts. TRANG draining small amount of sanguinous fluid. Surgical site intact, dried drainage present. Labs unremarkable. PLAN MOVING FORWARD: Ambulate pt. Monitor TRANG. Monitor tele. Pain control. INDIVIDUALIZED FALL PREVENTION INTERVENTIONS: Patient-specific fall risk factors per assessment: [current deficits]: Generalized weakness. Post op. Tele lines. Assistance [level of assistance required for transfers and ambulation]: x1 w/W. Supervision [direct monitoring required during toileting and ADLs]: x1 w/W. Surveillance [continuous indirect monitoring]: Hourly rounding. Bed alarm. Q2 Neuro checks. Patient-specific fall prevention interventions for sensory deficits provided, if applicable: Yes. Assistance with ADLs. CPG GOAL OUTCOME EVALUATION: Goal: Fall Prevention-Safe Patient Handling 11/06/19 1530 11/10/19 0800 11/10/191999 Daily Care Interventions Self-Care Promotion independence encouraged;BADL personal objects within reach;meal setup provided;BADL personal routines maintained;safe use of adaptive equipment encouraged -- -- Woodall Fall Risk History of Falling -- -- 25 Secondary Diagnosis -- -- 15 Ambulatory Aids -- -- 15 Intravenous Therapy/Heparin/Saline Lock -- -- 20 Gait/Transferring -- -- 10 Mental Status -- -- 15 Score -- -- 100 OTHER Woodall Fall Risk -- -- High Restraint Interventions Safety Promotion/Fall Prevention -- -- safety round/check completed Positioning Body Position -- independent -- Activity Activity Type -- activity adjusted per tolerance -- Activity Assistance Provided -- assistance, stand-by -- Assistive Device Utilized -- front-wheel walker -- Goal: Infection Control 11/10/191999 Safety Interventions Isolation Precautions standard precautions maintained Infection Prevention environmental surveillance performed Coping Strategies Supportive Measures active listening utilized;counseling provided;decision- making supported;goal setting facilitated;positive reinforcement provided;problem solving facilitated;relaxation techniques promoted;self-care encouraged;self-reflection promoted;self-responsibility promoted;verbalization offeelings encouraged Goal: Discharge Needs Assessment 11/06/191529 Discharge Needs Assessment Discharge Disposition still a patient Goal: Interdisciplinary Rounds/Family Conf 11/06/19 1530 Interdisciplinary Rounds/Family Conf Participants family;advanced practice nurse;nursing;patient;physician * Plan of Care - Frances Cuevas RN - 11/10/2019 6:02 PM EDT Problem: Patient Care Overview Goal: Plan of Care Review 11/10/19 1756 Coping/Psychosocial Plan Of Care Reviewed With patient Plan of Care Review Progress progress toward functional goals is gradual OUTCOME EVALUATION NOTE: OUTCOME SUMMARY: A&Ox4, on RA, VSS. Went to OR for left sided pedro pablo hole with TRANG placement. Incisions with minimal drainage. Voiding adequately. Complained of a little bit of pain around the incision site that wasrelieved by tylenol and oxycodone. Tolerating a regular diet. No other concerns at this time, will continue to monitor. PLAN MOVING FORWARD: Monitor TRANG output Q2 vitals and neuro DC planning INDIVIDUALIZED FALL PREVENTION INTERVENTIONS: Patient-specific fall risk factors per assessment: [current deficits]: Hospital lines, weakness Assistance [level of assistance required for transfers and ambulation]: Assist x1 Supervision [direct monitoring required during toileting and ADLs]: Hands on Surveillance [continuous indirect monitoring]: Purposeful hourly rounds, call light within reach, bed alarm set Patient-specific fall prevention interventions for sensory deficits provided, if applicable: [X] Yes * Op Note - Masoud Babcock MD - 11/10/2019 2:32 PM EDT OPERATIVE NOTE DATE OF PROCEDURE: 11/10/2019 ATTENDING SURGEON: Addy Banks MD RESIDENT SURGEON: Masoud Babcock MD ; Tu Reyes MD PREOPERATIVE DIAGNOSIS: 1. Left Subdural Hematoma. POSTOPERATIVE DIAGNOSIS: 1. Same OPERATION/PROCEDURE: 1. Pedro Pablo hole for evacuation of left subdural hematoma 2. Subgaleal drain placement ANESTHESIA: GETA INDICATIONS: The patient presented with progressively worsening RIGHT sided weakness found to have a large LEFT frontal/parietal mixed attenuation SDH Bedside SDD management failed. Risks, benefits and alternatives including but not limited to bleeding, infection, malplacement, neurological deficit, reaccumulation of the SDH, failure of the subdural drain to evacuate the SDH, and acute SDH accumulation were discussed with the patient, end the end of which an informed consent was obtained. DESCRIPTION OF PROCEDURE: The patient was placed in the supine position on a large thoracic gel roll with the head turned to the right. A [place] Time-Out Protocol was performed, and the operative side was appropriately identified and confirmed with radiographic imaging. 2 separate incisions were marked along the parietalboss and superior temporal line and the hair around the incision was shaved with clippers. The surgical site was prepped and draped in standard sterile fashion. The incision was infiltrated with local anesthetic. The periosteal layer was then bluntly dissected Bovie electrocautery and a #1 Alma. A high-speed drill with a wood cut engraver bit was used to place bur holes in the 2 incision sites. The dura was cauterized by bipolars and opened in cruciate fashion with a #15 blade. Thick membranes andmotor oil like fluid were encountered immediately which was consistent with chronic subdural hematoma. Using a red rubber catheter passed from the anterior incision to the posterior incision the subdural space was gently irrigated until the irrigation ran clear from both sides. A flat TRANG drain was passed across the 2 incisions from posterior to anterior and secured in place with a 2-0 Vicryl suture. The surgical sites were both copiously irrigated. Attention was turned to closure. The galea was reapproximated with 3-0 Vicryl suture in interruptedfashion. The skin was closed with surgical roberto. The TRANG drain was attached to a bulb suction. Surgical sites were washed and dried with Ray-Pura sponges, drapes were removed, and Mepilex dressings were applied. The patient was returned to hospital bed in the supine position. He was extubated marking the end of the procedure. The patient tolerated the procedure well and there were no complications. Dr. Reddy was present for all parts of this procedure. ESTIMATED BLOOD LOSS: Approximately 100 mL. COMPLICATIONS: None. COUNTS: Correct at the end of the procedure. PLAN: PACU to NSCU Associated attestation - Addy Banks MD - 11/11/2019 9:45 AM EDT Attestation: Case Date: 11/10/2019 I was present and I participated during the entire procedure (does not need to include opening and closing). ADDY BANKS MD 11/11/2019 * Brief Op Note - Tu Reyes MD - 11/10/2019 2:21 PM EDT Brief Operative Note Patient Name: Josue Nguyen : [id number] MR#: [id number] Case Date: 11/10/2019 Surgeon: Surgeon(s) and Role: * Addy Banks MD - Primary * Masoud Babcock MD - Resident * Tu Reyes MD - Resident Preoperative diagnosis: Subdural hematoma Postoperative diagnosis: Subdural hematoma Procedure(s): @CRANI-SUB\EXTRADURAL HEMATOMA EVAC, PEDRO PABLO HOLE (WRVU 17.07) Anesthesia: Anesthesia type not filed in the log. Findings: chronic SDH Complications: none Estimated Blood Loss: 25 mL Specimens removed during surgery: None Fluids: Intraprocedure Crystalloid Total None Fluids: ANES IntraOp Crystalloid (Filter: (AN Fluids) Medications Shown) Medication Calculated Total No medications were administered. Blood: none Urine Output: 225 mL Drains: 1 TRANG to half bulb suction Disposition: awakened from anesthesia, extubated and taken to the recovery room in a stable condition, having suffered no apparent untoward event. Condition: doing well without problems (Please see the Surgical Encounter Summary for any Implant and Specimen details pertinent to this patient.) ANES IntraOp Crystalloid (Filter: (AN Fluids) Medications Shown) Medication Calculated Total No medications were administered. Tu Reyes MD * Brief Op Note - Addy Banks MD - 11/10/2019 2:08 PM EDT Brief Operative Note Patient Name: Josue Nguyen : [id number] MR#: [id number] Case Date: 11/10/2019 Surgeon: Surgeon(s) and Role: * Addy Banks MD - Primary * Masoud Babcock MD - Resident * Tu Reyes MD - Resident Preoperative diagnosis: Subdural hematoma Postoperative diagnosis: Subdural hematoma Procedure(s) (LRB): @CRANI-SUB\EXTRADURAL HEMATOMA EVAC, PEDRO PABLO HOLE (WRVU 17.07) (Left) Anesthesia: Anesthesia type not filed in the log. Findings: chronic SDH Intake: 600cc Output: Estimated Blood Loss: 25cc Urine Output:: 100 mL \ Drains: TRANG in subgaleal space Specimens removed during surgery: None Attestation: Case Date: 11/10/2019 I was present and I participated during the entire procedure (does not need to include opening and closing). (Please see the Surgical Encounter Summary for any Implant and Specimen details pertinent to this patient.) * Plan of Care - Adia Edwards OT - 11/10/2019 12:57 PM EDT Occupational Therapy Contact Note: Attempted to see Pt for OT services. Pt off floor at OR. Plan to follow-up post surgery for reassessment. Adia Edwards MS, OTR/L Occupational Therapist Pager: [phone] Inpatient Rehabilitation Services * Plan of Care - Krystal Hernandez RN - 11/10/2019 5:09 AM EDT Problem: Patient Care Overview Goal: Plan of Care Review Outcome: Ongoing (Interventions Implemented as Appropriate) 11/09/19 1758 11/09/191999 Coping/Psychosocial Plan Of Care Reviewed With -- patient Plan of Care Review Progress progress toward functional goals is gradual -- OUTCOME SUMMARY: ?? Pt aaox4, though lethargic. Right side 4/5 strength, did not feel comfortable walking because he thought his leg was feeling weaker. No outbursts of aggression. AVSS. NPO at midnight, and fluids started at 75ml/hr. Continue to monitor ?? PLAN MOVING FORWARD: ?? Q2hrly neuro Q2hrly vitals Maintain safety Surgery ? INDIVIDUALIZED FALL PREVENTION INTERVENTIONS: ?? Patient-specific fall risk factors per assessment: hospital environment/ device ?? Assistance: 1assist ?? Supervision: Hands on ?? Surveillance: Bed locked in low position, call reddy within reach, purposeful hourly rounding, bed/chair alarm on, clutter free room, family at bedside ?? Patient-specific fall prevention interventions for sensory deficits provided: ??Yes ?? CPG GOAL OUTCOME EVALUATION:? Continue care plan as documented. ?? Stroke Education Modifiable risk factors??(Ischemic??&??Hemorrhagic): Checked box [x] indicates present [x??] Hypertension ?[ ] Use of Oral Contraceptive [x ] Smoker (or exposure to cigarette smoke) ??[ ] Poor Diet/Nutrition [x??] Diabetes ?[x??] Physical Inactivity [ ] Hyperlipidemia ?[ ] Obesity [ ] Atrial Fibrillation ?[ ] Sleep Apnea [ ] Asymptomatic carotid artery stenosis ?[ ] Post-menopausal hormone??therapy ?? (Hemorrhagic stroke specific) [ ] High alcohol intake [ ] Anticoagulation [ ] Use of sympathomimetic??drugs??(i.e. cocaine, amphetamine, methamphetamine) ?? Patient Education Provided:??Checked box [x] indicates done [x??] Ischemic, Hemorrhagic, TIA education packet provided [ ] Supplemental Personalized Educational Material added to packet, including: ?[ ] Personal Risk Factors ?[ ] Warning signs of stroke ?[ ] Activation of an emergency medical system ?[ ] Need for follow-up after discharge ?[ ] Medications prescribed ?? The above items were reviewed in detail today. Patient/family expresses understanding of the likelycauses of this stroke, personal risk factors, diagnostic considerations, hospital course thus far, and treatment plan going forward. Patient and/or family members have received personalized stroke edu cational materials to review and were allowed time for questions and answers. There are no further questions at this time. They were encouraged to review the educational handouts provided and write down any questions that may arise for the vascular neurology team to address at a later time. ?? Patient discharge plans include: [ ] home discharge?[ x] Acute Rehab [ ] home with family assistance?[ ] Other [ ] home with VNA services?[ ] Unknown at this time in hospital course [ ] Long Term Facility * Plan of Care - Danial Perez RN - 11/09/2019 6:09 PM EDT Problem: Patient Care Overview Goal: Plan of Care Review Outcome: Ongoing (Interventions Implemented as Appropriate) 11/09/191757 Coping/Psychosocial Plan Of Care Reviewed With patient Plan of Care Review Progress progress toward functional goals is gradual OUTCOME EVALUATION NOTE: OUTCOME SUMMARY: Pt alert and oriented with intermittent periods of aggravation and expressive aphasia. [place] HOOKER 4/5 on right and 5/5 on left. by the end of the shift the patient was dragging his foot on the floor when ambulating to the bathroom and no longer felt comfotable getting up out of bed with the walker.Pt was a add on for a crani this shift, NS came to bedside and explain that he should be going tomorrow. VSS. No complains of pain, voiding spontaneously, x2 BM this shift. PLAN MOVING FORWARD: NPO at midnight, OR tomorrow * Care Management - Chhaya Olivarez RN - 11/09/2019 4:09 PM EDT Per team, pt not MR for d/c at this time is going to OR for Crani today. [facility] is considering for potential admit. Potential barrier could be post rehab d/c plan as pt lives alone. This CM will reach out to family regarding what support they could offer post rehab. Pt will need insurance auth prior to going to [facility] if a bed is offered. CM will continue to monitor and assist with d/c planning as needed. Chhaya Olivarez MSN, RN CM [facility]ah[facility]ger Office of Care Management Pager #[phone] * Consult Note - Oralia Patel I - 11/08/2019 9:02 PM EDT Neurology Progress Note 11/08/2019 Patient Name: Josue Nguyen Admit Date: 11/01/2019 Patient ID: Josue Nguyen is a 74 y.o. presenting with PMHx of HTN, HLD, DM2 who presents in transfer from [facility] with a LEFT subdural hematoma (presumed acute on chronic). Neurology has been consulted for episodes of confusion concerning for seizures. Neurology has been re-consulted for episodes of AMS concerning for seizure activity. 11/02/19: L SEPS placement 11/03/19: L SDD placement (SEPS removed) 11/03/19: L MMA embo (incidental dAVF) Interval History: - At 330 this afternoon, PT noted that patient was unable to follow commands (unable to follow commands to close eyes) - Patient complained of three events of difficulty expressing his feelings today - Daughter concerned about confusion throughout the day, concern for further seizure activity - Pending DAVF embolization, rescheduled for tomorrow, NPO today while awaiting this procedure On interview, patient having difficulty relaying what has happened today. Waxing and waning word searching but unable to relay story. History obtained from bedside nurse and electrical mechanical technician and confirmed with patient. Physical Exam: Vitals: Temp: [36.5 ??C (97.7 ??F)-37.1 ??C (98.8 ??F)] Heart Rate: [51-68] Resp: [4-20] BP: (97-146)/(53-83) SpO2: [92 %-98 %] Heart Rate from SpO2: [50 bpm-68 bpm] Gen: Patient of apparent stated age, well nourished, well developed, awake, alert, NAD Ext: No edema. No bony deformity Neuro Exam MS: AAOx4, clear language, follows simple and complex cross body commands Mildly dysarthric Pres: I can't say, Obama, that one yakov (selected Venkatesh Albarado from list) Repetition intact, waxing and waning naming (names glasses/lens, struggles with knuckles) CN: PERRL, EOMI, visual doty full Facial sensation intact Mild right facial droop Hearing intact to voice Palate elevates symmetrically, tongue protrudes midline SCM and trap strength intact Motor: Normal bulk and tone. UE: 4/5 R, 5/5 L Arm abduction at shoulder 4/5 R, 5/5 L Elbow extension 4/5 R, 5/5 L Elbow flexion 4/5 R, 5/5 L Histological Illustrator LE: 4/5 R, 5/5 L Hip flexion 4/5 R, 5/5 L Knee extension 4/5 R, 5/5 L Knee flexion 4/5 R, 5/5 L Foot dorsiflexion 4/5 R, 5/5 L Foot plantar flexion Sensation: Intact to light touch throughout Reflexes: Babinski - R down, L down Coordination: Finger to nose intact No tremor Gait: Did not assess Labs: Recent Results (from the past 24 hour(s)) Basic Metabolic Panel (non-fasting) Result Value Ref Range Glucose Lvl 130 65 - 199 mg/dL BUN 16 10 - 20 mg/dL Creatinine 0.92 0.80 - 1.50 mg/dL Sodium 140 135 - 145 mmol/L Potassium 4.0 3.5 - 5.0 mmol/L Chloride 102 98 - 107 mmol/L CO2 26 22 - 31 mmol/L Anion Gap 12 5 - 15 mmol/L Calcium 9.2 8.5 - 10.5 mg/dL eGFR 82 >=60 mL/min/1.73 m?? eGFR 95 >=60 mL/min/1.73 m?? Hemogram Result Value Ref Range WBC 6.5 4.0 - 9.5 x10(3)/mcL RBC 4.22 (L) 4.58 - 5.54 x10(6)/mcL Hemoglobin 13.0 (L) 13.7 - 16.5 gm/dL Hematocrit 38.7 (L) 40.5 - 48.5 % MCV 91.7 82.9 - 93.1 fL MCH 30.8 27.5 - 32.1 pg MCHC 33.6 32.0 - 35.7 gm/dL Platelets 188 145 - 357 x10(3)/mcL RDWSD 43.0 36.0 - 45.0 fL RDWCV 12.9 11.4 - 13.8 % MPV 10.4 7.6 - 12.9 fL nRBC % Auto 0.0 % nRBC Abs Auto 0.000 0.000 - 0.000 x10(3)/mcL Differential, Automated Result Value Ref Range Neutrophils % 49.8 % Neutr Abs (ANC) 3.22 1.70 - 6.10 x10(3)/mcL Lymphocytes % 33.0 % Lymphocytes Abs 2.1 0.9 - 3.2 x10(3)/mcL Monocytes % 10.1 % Monocyte Abs 0.6 0.3 - 0.9 x10(3)/mcL Eosinophils % 5.7 % Eosinophils Abs 0.4 0.0 - 0.4 x10(3)/mcL Basophils % 1.2 % Basophils Abs 0.1 0.0 - 0.1 x10(3)/mcL Immature Gran % 0.20 % Stacey Gran Abs 0.01 0.00 - 0.04 x10(3)/mcL POCT Glucose Result Value Ref Range POC Glucose 118 65 - 199 mg/dL POCT Glucose Result Value Ref Range POC Glucose 150 65 - 199 mg/dL POCT Glucose Result Value Ref Range POC Glucose 120 65 - 199 mg/dL POCT Glucose Result Value Ref Range POC Glucose 104 65 - 199 mg/dL Medications: Scheduled Meds: ??? melatonin 3 mg Oral Nightly ??? famotidine 40 mg Oral BID ??? sodium chloride 0.9 % (flush) 5 mL Intravenous BID ??? lisinopriL 5 mg Oral Daily ??? metFORMIN 1,000 mg Oral BID WC ??? sodium chloride 0.9 % (flush) 5 mL Intravenous BID ??? levETIRAcetam 500 mg Oral BID Or ??? levETIRAcetam 500 mg Intravenous BID ??? insulin lispro 1-5 Units Subcutaneous TID AC Continuous Infusions: PRN Meds:.calcium carbonate, senna-docusate, polyethylene glycoL (MIRALAX) oral powder, bisacodyL, sodium chloride 0.9 % (flush), lidocaine, oxyCODONE, sodium chloride 0.9 % (flush), lidocaine, ondansetron OR ondansetron, acetaminophen OR acetaminophen, labetalol, hydrALAZINE, glucose 40% oral geL OR dextrose 10% OR glucagon (human recombinant) Diagnostic Tests and Imaging: EEG (11/04/2019): Interpretation This EEG is normal during awake and sleep states.?? CLINICAL CORRELATION: Normal EEG. No events. No seizures. CT Head (11/02/2019): Large left sided subdural hematoma with acute anterior and older posterior/superior blood products.This collection causes a moderate midline shift with partial effacement of the left lateral ventricle posteriorly. CT Head (11/05/2019): IMPRESSION Stable examination with no interval change in size of the left subdural hematoma or associated masseffect. Assessment: Josue Nguyen is a 74 y.o. male with PMHx of HTN, HLD, DM2 who presents in transfer from [facility] with a LEFT subdural hematoma (presumed acute on chronic). Neurology has been consulted for episodes ofconfusion concerning for seizures. His examination is significant for right-sided hemiparesis as well as mild encephalopathy; his mental status appears to wax and wane and has been previously worked up for seizure activity without capturing any events. He certainly has substrate for seizure activity and he is currently on keppra 500mg BID. ?? Recommendations: - Resume VEEG (approved by J Carlos) - Continue keppra 500 mg BID X?? Consult service will continue to follow patient. Recommendations are above, please page if further consultation required. ?? Oralia Patel MD PGY4 Neurology Resident 11/08/2019 Neurology Consult Service Pager #[phone] Associated attestation - Josue Reyes MD - 11/14/2019 5:01 PM EDT Neurology Attending Note Josue Reyes MD PhD (pager [phone]) I have seen and examined Josue Nguyen on [phone] with the neurology Consult Team. I have reviewed the note by Dr. Patel and agree with the history, exam, data/imaging review and assessment and recommendations. * Plan of Care - Steffen Almazan, PT - 11/08/2019 4:28 PM EDT Physical Therapy Note Treatment Number PT: 2 Patient profile: Josue Nguyen is a 74 y.o. male with PMH of HTN, HLD, and DM with progressively worsening RIGHT sided weakness found to have a large LEFT frontal/parietal mixed attenuation SDH. L SEPS drain placement on 11/01. SDD placed on 11/02. LLA embolization on 11/02 Interval Events: Per Neuro surg note 11/08/19: - NAEON - SDD continues with minimal output - Plan for dAVF embolization tmrw Social History: Home set-up: Lives in [place] () in an apartment Bathroom Set-up: tub shower, no bars Stairs: 3 to enter with 2 railings Baseline Mobility: independent prior Equipment at home: cane Fall history: fell a few saturdays ago in the shower Precautions/Special Considerations: NSCU monitoring, activity as tolerated Mobility and Positioning Recommendations: ?? Pt. to utilize FWW and 1A for ambulation and transfers with nursing. ?? Please encourage up to chair for meal times as able. Subjective: ???I was walking 1 mile every day 2 months ago. Now I feel weak. Especially my right knee?? Objective: Pain: Pt did not indicate having pain during session Vital Signs: VSS Bed Mobility: Supine to Sit: Supervision with HOB slightly elevated, bed rail Sit to Supine: did not assess Transfers: Sit to Stand: CGA Stand to Sit: CGA with vc for eccentric control Gait: Distance: 150' Device used: FWW Level of assist: Alexsander, vc Gait mechanics: decreased luis a, shuffling gait, decreased R>L toe clearance, vc for FWW technique, multiple collisions with FWW into corners and other objects Balance: Four Stage Balance Test: Pt unable to sustain modified tandem stance Stood with feet together and eyes closed <10sec 30 second sit<>stand test: Pt performed 5, N=12 Therapeutic Exercise: Sit<>stand x10 Education: patient has been educated on Bed mobility, Transfers, Assistive device/technique, Gait ,Role of therapy, Balance and Discharge planning and needs reinforcement. understanding. Patient status, treatment, and mobility recommendations discussed with nursing. Assessment: Josue Nguyen was seen today for continued physical therapy treatment and assessment.Patient presented to physical therapy today feeling well and willing to participate. Pt mobilizing much better today though with observed gait deviations most pronounced on the RLE, as well as balance deficits. Pt currently far below prior level of function, and would tolerate and benefit highly from an intensive multi-disciplinary rehabilitation approach at time of discharge. Discharge Recommendations: Based on the current findings, Anticipated Discharge Disposition: inpatient acute rehabilitation when medically ready for hospital discharge. Consult Recommendations: No other consults recommended at this time. Equipment needs: TBD Goals: To be achieved by 11/18/2019: GOALS UPDATED ON 11/09/2019 BY PRIMARY THERAPIST 1. Pt. to demonstrate knowledge of safety limitations and precautions and will appropriately request assistance for functional activities and to mobilize. 2. Pt. to demonstrate understanding of appropriate LE exercises. 3. Pt. to perform bed mobility independently. 4. Pt. to perform sit to stand and stand step transfers with modified independence using LRAD. 5. Pt. to ambulate 300 feet with modified independence using a LRAD. 6. Pt. to ambulate up/down 3 step/stairs using two rails independently. 7. Pt to perform 5x sit to stand under 15s to demonstrate increased LE strength 8. Pt to perform DGI with score of >20/24 to demonstrate low fall risk Plan: Therapy Frequency: 3-5 times/wk for therapy including balance training, bed mobility training, gait training, patient/family education, stair training, strengthening, stretching and transfer training. Patient/family understand and agree with plan as stated above. Total Evaluation Minutes, Physical Therapy: 37(TEF, GT, CHANDRIKA ([phone])) Syd Kaiser, TOOL DESIGN CHECKER Pager: [phone] Physical Therapy Inpatient Rehabilitation Department * Plan of Care - Adia Edwards OT - 11/08/2019 4:00 PM EDT Occupational Therapy Treatment Note Treatment Number OT: 2 Patient profile: Josue Nguyen??is a 74 y.o.??male??with PMH of HTN, HLD, and DM with progressively worsening RIGHT sided weakness found to have a large LEFT frontal/parietal mixed attenuation SDH.??L SEPS drain placement on 11/01. SDD placed on 11/02. LLA embolization on 11/02. ?? Past Medical History Past Medical History: Diagnosis Date ??? Diabetes mellitus ? Hypertension ? Past Surgical History Past Surgical History: Procedure Laterality Date ??? PRO PERM OCCLUSION/EMBOLIZATION, MARV, QUALITY ASSOCIATE N/A 11/03/2019 ?? @TRANSCATHETER OCCLUSION/EMBOLIZATION FOR TUMOR DESTRUCTION performed by Hussain Christianson MD at [facility] ??? TONSILLECTOMY ? Social History: Patient lives alone. Home Setup: Patient lives in an apartment with three steps to enter and two railings. Patient has atub shower. DME: cane Baseline ADL/Mobility: Patient independent with ADLS and IADLs. Patient driving. Patient fell a fewdays ago prior to admit in shower. ?? Precautions/Special Considerations: fall Interval History: SDD drain removed S: I can't my computer, Pt noted with transient difficulty with communicating wants and needs initially upon therapist arrival O: Patient seen for skilled OT treatment, and demonstrated the following: ?? Self-care: ?? Pt participated in toileting routine at ambulatory level requiring CGA with FWW ?? Pt supervision for perineal hygiene ?? Pt able to wash hands with CGA at sink ?? Functional Mobility: ?? Pt CGA for sit to stand transfers ?? Pt ambulated with CGA with FWW to bathroom and back ~12 ft ?? Pt benefited from cues to keep walker within BIBI and to use for support ?? Cognition: ?? Behavior / Mood: alert, impaired task initiation and waxing and waning cognition ?? Alert and oriented to: person, place, time and situation ?? Follows commands: 1 step, 100% of the time, requires increased time and requires repetition ?? Attention: initially difficulty attending to task ?? Safety awareness: WFL ?? Upon this production underwriter entering Pt room; noted with decreased ability to follow one step commands and make wants and needs known. Therapist alerted RN; when RN performed neuro-check Pt oriented x4. ?? Pt then noted with ability to maintain orientation during session with occasional word finding difficulties ?? Vision: ?? Glasses [employer] ?? Vitals: 97/53, HR 68, O2 98 ?? Strength/ROM: Pt participated in FM coordination tasks and exercises stacking cups with RUE and with therasponge Pain: 0/10 Education: Pt/family/caregiver education ongoing regarding: Role of occupational therapy/rehabilitation, Transfers, Assistive device/technique, Adaptive equipment training, ADL, Positioning, Safety, Precautions/Protocol, Functional Mobility, Activity pacing/Energy conservation, Home Program, Home Management, Balance, Recommendations and Discharge planning. Staff Communication: Patient status, treatment, and mobility recommendations discussed with nursing/other staff. ASSESSMENT: Pt seen for OT services. Pt initially noted with decreased ability to answer orientation questions and noted with confusion, RN alerted and Pt with stable vital signs and then able to answer orientation questions. Pt requiring CGA for transfers and standing level ADL routines. At this time; recommend Pt discharge to an inpatient rehab facility to maximize function secondary to Pt lives alone and would need to be completely independent prior to returning. Pt will benefit from ongoingtherapeutic interventions to achieve pt's and therapy goals Anticipated Discharge Disposition: inpatient acute rehabilitation Equipment Recommendations: shower chair, FWW Other Recommendations: ?? Utilize upright chair position using bed features or transfer to recliner chair as appropriate with Minimal assistance with walker, ambulate as tolerated ?? Encourage participation in ADL's by providing set up A on tray table and physical assist only asneeded Goals: To be achieved by 11/18/19. Patient will stand at sink level with supervision x10 min for ADLs. Patient will dress lower body indep with adaptive equipment prn. Patient will perform simple kitchen mgt with appropriate assistive device as needed and supervision. Patient will ambulate to the bathroom with supervision, assistive device as needed. Patient will remember and retrieve 5/5 items for ADL tasks independently. All goals in progress Therapy Frequency: 3-5 times/wk Total Evaluation Minutes, Occupational Therapy: 29(2 SC ) Pager: [phone] Adia Edwards OT Occupational Therapy Rehabilitation Department * Plan of Care - Enoc Zhao RN - 11/08/2019 1:05 PM EDT Problem: Patient Care Overview Goal: Plan of Care Review Outcome: Ongoing (Interventions Implemented as Appropriate) 11/07/19 0501 11/08/19 0710 Coping/Psychosocial Plan Of Care Reviewed With -- patient Plan of Care Review Progress improving -- OUTCOME EVALUATION NOTE: OUTCOME SUMMARY: Pt AOX4, muscle strength 5, PERRLA. At about 0330 PT complain that pt. was unable to answer questions and was confused (asked him to close his eyes and he did not know how to do that). On assessment pt noted to be neurologically intact, made aware. Continues to be monitored. Breathing spontaneously in room air and maintaining oxygenation. Hemodynamically stable. Voiding spontaneously in urine;adequate arturo urine. Hygiene needs met. Tolerating meals. Skin dry and intact. Ambulated around pod and BR with nurse and walker; pt encourage to ambulate more. Surgery postpone for tomorrow, IVF D/C. Daughter called for update from and concerned about confusion, team paged; for possible VEEG. PLAN MOVING FORWARD: Q2hrly neuro Q2hrly vitals Maintain safety INDIVIDUALIZED FALL PREVENTION INTERVENTIONS: Patient-specific fall risk factors per assessment: hospital environment/ device Assistance: 1-2 assist, Supervision: Hands on Surveillance: Bed locked in low position, call reddy within reach, purposeful hourly rounding, bed/chair alarm on, clutter free room, Patient-specific fall prevention interventions for sensory deficits provided: Yes CPG GOAL OUTCOME EVALUATION: Continue care plan as documented. Stroke Education Modifiable risk factors (Ischemic & Hemorrhagic): Checked box [x] indicates present [ x] Hypertension [ ] Use of Oral Contraceptive [ ] Smoker (or exposure to cigarette smoke) [ ] Poor Diet/Nutrition [x ] Diabetes [x ] Physical Inactivity [x ] Hyperlipidemia [ ] Obesity [ ] Atrial Fibrillation [ ] Sleep Apnea [ ] Asymptomatic carotid artery stenosis [ ] Post-menopausal hormone therapy (Hemorrhagic stroke specific) [ ] High alcohol intake [ ] Anticoagulation [ ] Use of sympathomimetic drugs (i.e. cocaine, amphetamine, methamphetamine) Patient Education Provided: Checked box [x] indicates done [x ] Ischemic, Hemorrhagic, TIA education packet provided [ ] Supplemental Personalized Educational Material added to packet, including: [ ] Personal Risk Factors [ ] Warning signs of stroke [ ] Activation of an emergency medical system [ ] Need for follow-up after discharge [ ] Medications prescribed The above items were reviewed in detail today. Patient/family expresses understanding of the likelycauses of this stroke, personal risk factors, diagnostic considerations, hospital course thus far, and treatment plan going forward. Patient and/or family members have received personalized stroke edu cational materials to review and were allowed time for questions and answers. There are no further questions at this time. They were encouraged to review the educational handouts provided and write down any questions that may arise for the vascular neurology team to address at a later time. Patient discharge plans include: [ ] home discharge [ ] Acute Rehab [ ] home with family assistance [ ] Other [ ] home with VNA services [ x] Unknown at this time in hospital course [ ] Long Term Facility Goal: Fall Prevention-Safe Patient Handling Outcome: Ongoing (Interventions Implemented as Appropriate) 11/06/19 1530 11/08/19 0710 11/08/19 1143 Daily Care Interventions Self-Care Promotion independence encouraged;BADL personal objects within reach;meal setup provided;BADL personal routines maintained;safe use of adaptive equipment encouraged -- -- [place] Fall Risk History of Falling -- 25 -- Secondary Diagnosis -- 15 -- Ambulatory Aids -- 15 -- Intravenous Therapy/Heparin/Saline Lock -- 20 -- Gait/Transferring -- 10 -- Mental Status -- 0 -- Score -- 85 -- OTHER [place] Fall Risk -- High -- Restraint Interventions Safety Promotion/Fall Prevention -- -- fall prevention program maintained;nonskid shoes/slippers when out of bed;safety round/check completed Positioning Body Position -- -- independent Activity Activity Type -- -- ambulated to bathroom Activity Assistance Provided -- -- assistance, 1 person Assistive Device Utilized -- -- four-wheel walker Goal: Infection Control Outcome: Ongoing (Interventions Implemented as Appropriate) 11/08/19 0711/08/19 1143 Safety Interventions Isolation Precautions -- standard precautions maintained Infection Prevention -- single patient room provided;rest/sleep promoted Coping Strategies Supportive Measures active listening utilized -- Problem: Skin Integrity Impairment, Risk/Actual (Adult) Goal: Identify Related Risk Factors and Signs and Symptoms Related risk factors and signs and symptoms are identified upon initiation of Human Response Clinical Practice Guideline (CPG) Outcome: Ongoing (Interventions Implemented as Appropriate) 11/06/19 1530 Skin Integrity Impairment, Risk/Actual Skin Integrity Impairment, Risk/Actual: Related Risk Factors surgery/procedure Goal: Skin Integrity/Wound Healing Patient will demonstrate the desired outcomes by discharge/transition of care. Outcome: Ongoing (Interventions Implemented as Appropriate) 11/06/19 1530 Skin Integrity Impairment, Risk/Actual (Adult) Skin Integrity/Wound Healing making progress toward outcome Problem: Stroke (Hemorrhagic) (Adult) Goal: Signs and Symptoms of Listed Potential Problems Will be Absent, Minimized or Managed (Stroke) Signs and symptoms of listed potential problems will be absent, minimized or managed by discharge/transition of care (reference Stroke (Hemorrhagic) (Adult) CPG). Outcome: Ongoing (Interventions Implemented as Appropriate) 11/06/19 1530 Stroke (Hemorrhagic) Problems Assessed (Stroke (Hemorrhagic)) all Problems Present (Stroke (Hemorrhagic)) seizure activity;situational response * Plan of Care - Krystal Hernandez RN - 11/08/2019 4:26 AM EDT Problem: Patient Care Overview Goal: Plan of Care Review Outcome: Ongoing (Interventions Implemented as Appropriate) 11/07/19 0501 11/07/191999 Coping/Psychosocial Plan Of Care Reviewed With -- patient Plan of Care Review Progress improving -- OUTCOME EVALUATION NOTE: ?? OUTCOME SUMMARY: ?? Pt aaox4, strengths are all 5/5 though he states his right side still feels weaker. AVSS. Ambulatedto BR a few times. Had large BM. Requested melatonin to aide in sleeping. Continue to monitor ?? PLAN MOVING FORWARD: ?? Q2hrly neuro Q2hrly vitals Maintain safety ? INDIVIDUALIZED FALL PREVENTION INTERVENTIONS: ?? Patient-specific fall risk factors per assessment: hospital environment/ device ?? Assistance: 1assist ?? Supervision: Hands on ?? Surveillance: Bed locked in low position, call reddy within reach, purposeful hourly rounding, bed/chair alarm on, clutter free room, family at bedside ?? Patient-specific fall prevention interventions for sensory deficits provided: Yes ?? CPG GOAL OUTCOME EVALUATION: ?? Continue care plan as documented. ?? Stroke Education Modifiable risk factors (Ischemic & Hemorrhagic): Checked box [x] indicates present [x ] Hypertension [ ] Use of Oral Contraceptive [x ] Smoker (or exposure to cigarette smoke) [ ] Poor Diet/Nutrition [x ] Diabetes [x ] Physical Inactivity [ ] Hyperlipidemia [ ] Obesity [ ] Atrial Fibrillation [ ] Sleep Apnea [ ] Asymptomatic carotid artery stenosis [ ] Post-menopausal hormone therapy ?? (Hemorrhagic stroke specific) [ ] High alcohol intake [ ] Anticoagulation [ ] Use of sympathomimetic drugs (i.e. cocaine, amphetamine, methamphetamine) ?? Patient Education Provided: Checked box [x] indicates done [x ] Ischemic, Hemorrhagic, TIA education packet provided [ ] Supplemental Personalized Educational Material added to packet, including: [ ] Personal Risk Factors [ ] Warning signs of stroke [ ] Activation of an emergency medical system [ ] Need for follow-up after discharge [ ] Medications prescribed ?? The above items were reviewed in detail today. Patient/family expresses understanding of the likelycauses of this stroke, personal risk factors, diagnostic considerations, hospital course thus far, and treatment plan going forward. Patient and/or family members have received personalized stroke edu cational materials to review and were allowed time for questions and answers. There are no further questions at this time. They were encouraged to review the educational handouts provided and write down any questions that may arise for the vascular neurology team to address at a later time. ?? Patient discharge plans include: [ ] home discharge [ x] Acute Rehab [ ] home with family assistance [ ] Other [ ] home with VNA services [ ] Unknown at this time in hospital course [ ] Long Term Facility * Plan of Care - Enoc Zhao RN - 11/07/2019 2:01 PM EDT Problem: Patient Care Overview Goal: Plan of Care Review Outcome: Ongoing (Interventions Implemented as Appropriate) 11/07/19 0501 11/07/19 0730 Coping/Psychosocial Plan Of Care Reviewed With -- patient Plan of Care Review Progress improving -- OUTCOME EVALUATION NOTE: OUTCOME SUMMARY: Pt AOX4, muscle strength 5, PERRLA. Breathing spontaneously in room air and maintaining oxygenation. Hemodynamically stable. Voiding spontaneously in urine; adequate arturo urine. Hygiene needs met. Tolerating meals. Skin dry and intact. SDD pulled out by MD. Ambulated around pod with nurse and walker; pt encourage to ambulate more. PLAN MOVING FORWARD: Q2hrly neuro Q2hrly vitals Maintain safety INDIVIDUALIZED FALL PREVENTION INTERVENTIONS: Patient-specific fall risk factors per assessment: hospital environment/ device Assistance: 1assist Supervision: Hands on Surveillance: Bed locked in low position, call reddy within reach, purposeful hourly rounding, bed/chair alarm on, clutter free room, family at bedside Patient-specific fall prevention interventions for sensory deficits provided: Yes CPG GOAL OUTCOME EVALUATION: Continue care plan as documented. Stroke Education Modifiable risk factors (Ischemic & Hemorrhagic): Checked box [x] indicates present [x ] Hypertension [ ] Use of Oral Contraceptive [ ] Smoker (or exposure to cigarette smoke) [ ] Poor Diet/Nutrition [x ] Diabetes [x ] Physical Inactivity [ ] Hyperlipidemia [ ] Obesity [ ] Atrial Fibrillation [ ] Sleep Apnea [ ] Asymptomatic carotid artery stenosis [ ] Post-menopausal hormone therapy (Hemorrhagic stroke specific) [ ] High alcohol intake [ ] Anticoagulation [ ] Use of sympathomimetic drugs (i.e. cocaine, amphetamine, methamphetamine) Patient Education Provided: Checked box [x] indicates done [x ] Ischemic, Hemorrhagic, TIA education packet provided [ ] Supplemental Personalized Educational Material added to packet, including: [ ] Personal Risk Factors [ ] Warning signs of stroke [ ] Activation of an emergency medical system [ ] Need for follow-up after discharge [ ] Medications prescribed The above items were reviewed in detail today. Patient/family expresses understanding of the likelycauses of this stroke, personal risk factors, diagnostic considerations, hospital course thus far, and treatment plan going forward. Patient and/or family members have received personalized stroke edu cational materials to review and were allowed time for questions and answers. There are no further questions at this time. They were encouraged to review the educational handouts provided and write down any questions that may arise for the vascular neurology team to address at a later time. Patient discharge plans include: [ ] home discharge [ x] Acute Rehab [ ] home with family assistance [ ] Other [ ] home with VNA services [ ] Unknown at this time in hospital course [ ] Long Term Facility Goal: Infection Control Outcome: Ongoing (Interventions Implemented as Appropriate) 11/07/19 0730 11/07/19 1300 Safety Interventions Isolation Precautions -- standard precautions maintained Infection Prevention -- single patient room provided;rest/sleep promoted;environmental surveillanceperformed Coping Strategies Supportive Measures active listening utilized -- Problem: Skin Integrity Impairment, Risk/Actual (Adult) Goal: Identify Related Risk Factors and Signs and Symptoms Related risk factors and signs and symptoms are identified upon initiation of Human Response Clinical Practice Guideline (CPG) Outcome: Ongoing (Interventions Implemented as Appropriate) 11/06/19 1530 Skin Integrity Impairment, Risk/Actual Skin Integrity Impairment, Risk/Actual: Related Risk Factors surgery/procedure Goal: Skin Integrity/Wound Healing Patient will demonstrate the desired outcomes by discharge/transition of care. Outcome: Ongoing (Interventions Implemented as Appropriate) 11/06/19 1530 Skin Integrity Impairment, Risk/Actual (Adult) Skin Integrity/Wound Healing making progress toward outcome Problem: Stroke (Hemorrhagic) (Adult) Goal: Signs and Symptoms of Listed Potential Problems Will be Absent, Minimized or Managed (Stroke) Signs and symptoms of listed potential problems will be absent, minimized or managed by discharge/transition of care (reference Stroke (Hemorrhagic) (Adult) CPG). Outcome: Ongoing (Interventions Implemented as Appropriate) 11/06/19 1530 Stroke (Hemorrhagic) Problems Assessed (Stroke (Hemorrhagic)) all Problems Present (Stroke (Hemorrhagic)) seizure activity;situational response * Plan of Care - Frances Cuevas RN - 11/07/2019 5:04 AM EDT Problem: Patient Care Overview Goal: Plan of Care Review 11/07/19 0501 Coping/Psychosocial Plan Of Care Reviewed With patient Plan of Care Review Progress improving OUTCOME EVALUATION NOTE: OUTCOME SUMMARY: Pt A&Ox4 with no neurologic changes throughout shift. On RA, VSS. Pt with no complaints of pain. Voiding adequate amounts of clear yellow urine, +BM overnight. SDD in place with no output for shift. No other concerns at this time, will continue to monitor. PLAN MOVING FORWARD: Q2 neuro and vitals Procedure Thursday planning INDIVIDUALIZED FALL PREVENTION INTERVENTIONS: Patient-specific fall risk factors per assessment: [current deficits]: Hospital lines, SDD Assistance [level of assistance required for transfers and ambulation]: Stand by Supervision [direct monitoring required during toileting and ADLs]: Stand by Surveillance [continuous indirect monitoring]: Purposeful hourly rounds, call light within reach, bed alarm set Patient-specific fall prevention interventions for sensory deficits provided, if applicable: [X] Yes * Plan of Care - Alice Bourgeois RN - 11/06/2019 3:41 PM EDT Problem: Patient Care Overview Goal: Plan of Care Review Outcome: Ongoing (Interventions Implemented as Appropriate) 11/06/19 1530 Coping/Psychosocial Plan Of Care Reviewed With patient Plan of Care Review Progress improving OUTCOME EVALUATION NOTE: OUTCOME SUMMARY: Patient A&Ox4, AVSS, PERRLA, very pleasant and cooperative throughout shift. No facial droop orpronator drift appreciated, strengths equal throughout all extremities. Skin intact, mepilex removed d/t old mepilex and patient able to reposition himself and ambulate well. Ambulated with FWW and 1x assist for drain management, no dizziness/MENA/N/V reported. Ate well during day, no N/V reported. 1x BM, ambulated to toilet. SDD in place on L side of frontal scalp, dressing CDI. SDD with little mauro output during shift, MDs made aware, flushed during rounds. Pt reported pain when drain was flushed, refused pain medications. Up in chair for part of day. Completely washed up self this AM, needed little to no assistance, very happy with getting to feel clean. Voiding in urinal or in toilet, clear yellow urine, adequate amounts. Emotional support provided to patient during shift about family situation ( passed last November) and upcoming procedure. NS running at 100 mL/hr, no issues. Grandson visited for part of day, supportive of patient. D/C planning. PLAN MOVING FORWARD: Will continue to monitor and maintain safety. Q2 neuros and vitals. Monitor SDD site and output. Encourage verbalization of feelings. Continue to educate patient on upcoming procedure/next steps toward discharge, pt very open and receptive to education. D/C planning. INDIVIDUALIZED FALL PREVENTION INTERVENTIONS: Patient-specific fall risk factors per assessment: hospital environment, drain, lines Assistance: 1 assist, FWW Supervision: Hands on Surveillance: Bed locked in low position, call reddy within reach, purposeful hourly rounding, bed/chair alarm on, clutter free room, family at bedside Patient-specific fall prevention interventions for sensory deficits provided: Yes CPG GOAL OUTCOME EVALUATION: Continue care plan as documented. Stroke Education Modifiable risk factors (Ischemic & Hemorrhagic): Checked box [x] indicates present [ ] Hypertension [ ] Use of Oral Contraceptive [ ] Smoker (or exposure to cigarette smoke) [ ] Poor Diet/Nutrition [ ] Diabetes [ ] Physical Inactivity [ ] Hyperlipidemia [ ] Obesity [ ] Atrial Fibrillation [ ] Sleep Apnea [ ] Asymptomatic carotid artery stenosis [ ] Post-menopausal hormone therapy (Hemorrhagic stroke specific) [ ] High alcohol intake [ ] Anticoagulation [ ] Use of sympathomimetic drugs (i.e. cocaine, amphetamine, methamphetamine) Patient Education Provided: Checked box [x] indicates done [ ] Ischemic, Hemorrhagic, TIA education packet provided [ ] Supplemental Personalized Educational Material added to packet, including: [ ] Personal Risk Factors [ ] Warning signs of stroke [ ] Activation of an emergency medical system [ ] Need for follow-up after discharge [ ] Medications prescribed The above items were reviewed in detail today. Patient/family expresses understanding of the likelycauses of this stroke, personal risk factors, diagnostic considerations, hospital course thus far, and treatment plan going forward. Patient and/or family members have received personalized stroke edu cational materials to review and were allowed time for questions and answers. There are no further questions at this time. They were encouraged to review the educational handouts provided and write down any questions that may arise for the vascular neurology team to address at a later time. Patient discharge plans include: [ ] home discharge [ ] Acute Rehab [ ] home with family assistance [ ] Other [ ] home with VNA services [ ] Unknown at this time in hospital course [ ] Long Term Facility Goal: Fall Prevention-Safe Patient Handling Outcome: Ongoing (Interventions Implemented as Appropriate) 11/06/1974411/06/19 0911/06/19 1445 Daily Care Interventions Self-Care Promotion -- -- -- Woodall Fall Risk History of Falling 25 -- -- Secondary Diagnosis 15 -- -- Ambulatory Aids 15 -- -- Intravenous Therapy/Heparin/Saline Lock 20 -- -- Gait/Transferring 10 -- -- Mental Status 0 -- -- Score 85 -- -- OTHER Woodall Fall Risk High -- -- Restraint Interventions Safety Promotion/Fall Prevention -- -- safety round/check completed Positioning Body Position -- -- independent Activity Activity Type -- ambulated in room -- Activity Assistance Provided -- assistance, 1 person -- Assistive Device Utilized -- front-wheel walker -- 11/06/19 1530 Daily Care Interventions Self-Care Promotion independence encouraged;BADL personal objects within reach;meal setup provided;BADL personal routines maintained;safe use of adaptive equipment encouraged Woodall Fall Risk History of Falling -- Secondary Diagnosis -- Ambulatory Aids -- Intravenous Therapy/Heparin/Saline Lock -- Gait/Transferring -- Mental Status -- Score -- OTHER Woodall Fall Risk -- Restraint Interventions Safety Promotion/Fall Prevention -- Positioning Body Position -- Activity Activity Type -- Activity Assistance Provided -- Assistive Device Utilized -- Goal: Infection Control Outcome: Ongoing (Interventions Implemented as Appropriate) 11/06/1974411/06/19 1445 Safety Interventions Isolation Precautions -- standard precautions maintained Infection Prevention -- environmental surveillance performed Coping Strategies Supportive Measures active listening utilized;counseling provided;decision- making supported;goal setting facilitated;positive reinforcement provided;problem solving facilitated;relaxation techniques promoted;self-care encouraged;self-reflection promoted;self-responsibility promoted;verbalization offeelings encouraged -- Goal: Discharge Needs Assessment Outcome: Ongoing (Interventions Implemented as Appropriate) 11/06/19 1530 Discharge Needs Assessment Discharge Disposition still a patient Goal: Interdisciplinary Rounds/Family Conf Outcome: Ongoing (Interventions Implemented as Appropriate) 11/06/190 Interdisciplinary Rounds/Family Conf Participants family;advanced practice nurse;nursing;patient;physician Problem: Skin Integrity Impairment, Risk/Actual (Adult) Goal: Identify Related Risk Factors and Signs and Symptoms Related risk factors and signs and symptoms are identified upon initiation of Human Response Clinical Practice Guideline (CPG) Outcome: Ongoing (Interventions Implemented as Appropriate) 11/06/19 1530 Skin Integrity Impairment, Risk/Actual Skin Integrity Impairment, Risk/Actual: Related Risk Factors surgery/procedure Goal: Skin Integrity/Wound Healing Patient will demonstrate the desired outcomes by discharge/transition of care. Outcome: Ongoing (Interventions Implemented as Appropriate) 11/06/190 Skin Integrity Impairment, Risk/Actual (Adult) Skin Integrity/Wound Healing making progress toward outcome Problem: Stroke (Hemorrhagic) (Adult) Goal: Signs and Symptoms of Listed Potential Problems Will be Absent, Minimized or Managed (Stroke) Signs and symptoms of listed potential problems will be absent, minimized or managed by discharge/transition of care (reference Stroke (Hemorrhagic) (Adult) CPG). Outcome: Ongoing (Interventions Implemented as Appropriate) 11/06/191529 Stroke (Hemorrhagic) Problems Assessed (Stroke (Hemorrhagic)) all Problems Present (Stroke (Hemorrhagic)) seizure activity;situational response * Plan of Care - Frances Cuevas RN - 11/06/2019 5:44 AM EDT Problem: Patient Care Overview Goal: Plan of Care Review 11/06/19 0532 Coping/Psychosocial Plan Of Care Reviewed With patient Plan of Care Review Progress improving OUTCOME EVALUATION NOTE: OUTCOME SUMMARY: A&Ox4, on RA, VSS. SDD in place with minimal output. Complained of pain once overnight that wasrelieved with PRN tylenol. Voiding adequately via urinal, no BM. No other concerns at this time, will continue to monitor. PLAN MOVING FORWARD: Q2 neuro and vitals Procedure Thursday INDIVIDUALIZED FALL PREVENTION INTERVENTIONS: Patient-specific fall risk factors per assessment: [current deficits]: Weakness, hospital lines, SDD Assistance [level of assistance required for transfers and ambulation]: Stand by Supervision [direct monitoring required during toileting and ADLs]: Hands on Surveillance [continuous indirect monitoring]: Purposeful hourly rounding, bed alarm set, call light within reach Patient-specific fall prevention interventions for sensory deficits provided, if applicable: Yes * Plan of Care - Carmen Rios RN - 11/05/2019 4:47 AM EDT Problem: Patient Care Overview Goal: Plan of Care Review Outcome: Ongoing (Interventions Implemented as Appropriate) 11/04/19 1950 11/04/191999 Coping/Psychosocial Plan Of Care Reviewed With -- patient Plan of Care Review Progress no change -- OUTCOME EVALUATION NOTE: OUTCOME SUMMARY: PT A/Ox4. Strengths 08/22. Fine motor deficits noted in RUE. PERRLA. AVSS. No complaints of pain. Complaints of heartburn at beginning of shift. Treated well with scheduled Protonix. SDD in place. Flushed by Dr and draining sanguinous fluid. CT completed in AM. Slept in between care PLAN MOVING FORWARD: Q2 neuros/vitals Continue to monitor Maintain safety INDIVIDUALIZED FALL PREVENTION INTERVENTIONS: Patient-specific fall risk factors per assessment: generalized weakness, SDD Assistance: 1 assist, FWW Supervision: Hands on Surveillance: Bed locked in low position, call reddy within reach, purposeful hourly rounding, clutter free environment, bed alarm on Patient-specific fall prevention interventions for sensory deficits provided: Yes CPG GOAL OUTCOME EVALUATION: Continue care plan as documented. Goal: Fall Prevention-Safe Patient Handling Outcome: Ongoing (Interventions Implemented as Appropriate) 11/04/19 1300 11/04/19199911/05/19 0400 Woodall Fall Risk History of Falling -- 25 -- Secondary Diagnosis -- 15 -- Ambulatory Aids -- 0 -- Intravenous Therapy/Heparin/Saline Lock -- 20 -- Gait/Transferring -- 10 -- Mental Status -- 0 -- Score -- 70 -- OTHER Woodall Fall Risk -- High -- Restraint Interventions Safety Promotion/Fall Prevention -- -- safety round/check completed Positioning Body Position -- -- independent Activity Activity Type ambulated in room -- -- Activity Assistance Provided assistance, stand-by -- -- Assistive Device Utilized front-wheel walker -- -- Goal: Infection Control Outcome: Ongoing (Interventions Implemented as Appropriate) 11/04/19199911/05/19 0400 Safety Interventions Isolation Precautions -- standard precautions maintained Infection Prevention -- environmental surveillance performed Coping Strategies Supportive Measures active listening utilized -- Problem: Skin Integrity Impairment, Risk/Actual (Adult) Goal: Identify Related Risk Factors and Signs and Symptoms Related risk factors and signs and symptoms are identified upon initiation of Human Response Clinical Practice Guideline (CPG) Outcome: Ongoing (Interventions Implemented as Appropriate) 11/04/19 0700 Skin Integrity Impairment, Risk/Actual Skin Integrity Impairment, Risk/Actual: Related Risk Factors immobility;surgery/procedure * Plan of Care - Adia Ga RN - 11/04/2019 8:04 PM EDT Problem: Patient Care Overview Goal: Plan of Care Review Outcome: Ongoing (Interventions Implemented as Appropriate) 11/04/19 1950 Coping/Psychosocial Plan Of Care Reviewed With patient Plan of Care Review Progress no change OUTCOME EVALUATION NOTE: OUTCOME SUMMARY: A&O x4, neurologically unchanged. AVSS, remaining NSR/SB on telemetry HR 50's. Donohue D/C'ed @ noon, able to void spontaneously. Small sanguinous output to subdural drain 75mL out this shift, flushed x1 by PA @ bedside. CBG 70-80 throughout day. Turning self in bed. This morning patient complaining of indigestion, received prn Tums with good effect. Later patient still complaining of indigestion, new order for Pepcid. Received prn Tums & scheduled Pepcid with little effect. Now complaining of 10/10 heart burn. notified, new orders for EKG & stat troponin. Will continue to monitor. PLAN MOVING FORWARD: Q2 hr vital signs; Q2 hr neuro exams Monitor SDD D/C planning INDIVIDUALIZED FALL PREVENTION INTERVENTIONS: bed/chair alarm, safety rounding Patient-specific fall risk factors per assessment: generalized weakness, subdural drain Assistance: 1 assist, FWW Supervision: Arms reach Surveillance: Bed locked in low position, call reddy within reach, purposeful hourly rounding, clutter free environment, bed/chair alarm on Patient-specific fall prevention interventions for sensory deficits provided: Yes CPG GOAL OUTCOME EVALUATION: Continue care plan as documented. * Care Management - Chhaya Olivarez RN - 11/04/2019 10:54 AM EDT Based on discussions with the multi-disciplinary healthcare team, the patient would benefit from acute rehab level of care at discharge. ?? I have met with the patient/floor representative to discuss discharge planning needs. I have provided the [facility], Office of Care Management letter from the [employer] pertaining to rehab referrals. I have also provided a letter describing our affiliations within the [facility] and educated them about their right to choose where referrals are. ?? Provided patient with [facility] Star Quality Rating for SNF, LTAC and/or IRF hand out. ?? I reviewed the different levels of rehab including SNF, swing, acute and LTAC with the patient/floor representative. ?? The patient/floor representative has been provided a list of facilities within their preferred geographic area. ?? I have requested that the patient/floor representative provide at least three choices for referral. ?? The patient/floor representative have requested referrals to: ?? 1. [facility] ?? Expected date of discharge: 11/07/19 Note routed to Contract Administrator who will communicate referrals to facilities and provide any required information. Chhaya PALOMINO, RN CM [employer] Office of Care Management Pager #[phone] * Plan of Care - Steffen Almazan PT - 11/04/2019 10:36 AM EDT Physical Therapy Evaluation Patient profile: Josue Nguyen is a 74 y.o. male with PMH of HTN, HLD, and DM with progressively worsening RIGHT sided weakness found to have a large LEFT frontal/parietal mixed attenuation SDH. L SEPS drain placement on 11/01. SDD placed on 11/02. LLA embolization on 11/02 Patient with the following active problems: Past Medical History: Diagnosis Date ??? Diabetes mellitus ??? Hypertension Past Surgical History: Procedure Laterality Date ??? PRO PERM OCCLUSION/EMBOLIZATION, PERCUT, QUALITY ASSOCIATE N/A 11/03/2019 @TRANSCATHETER OCCLUSION/EMBOLIZATION FOR TUMOR DESTRUCTION performed by Hussain Christianson MD at [facility] ??? TONSILLECTOMY Active Non-Hospital Problems Diagnosis ??? Basal cell carcinoma ??? Tinea pedis Social History: Home set-up: Lives in [facility] () in an apartment Bathroom Set-up: tub shower, no bars Stairs: 3 to enter with 2 railings Baseline Mobility: independent prior Equipment at home: cane Fall history: fell a few saturdays ago in the shower Precautions/Special Considerations: SDD, NSCU monitoring, donohue, activity as tolerated Mobility and Positioning Recommendations: ?? Pt. to utilize FWW and 1A for ambulation and transfers with nursing. ?? Please encourage up to chair for meal times as able. Subjective: ???I'm feeling really dizzy?? Objective: Pt seen for evaluation today. Pain: Number Location At rest 2/10 head With activity 3/10 head Vital Signs: At Rest With Activity SpO2 (RA) 96% 98% BP (MAP) 140/57mmHg sitting 138/55mmHg after standing 119/62mmHg (end of session) HR 55bpm Mental Status: alert, oriented to person, place, and time Vision: glasses [employer] Skin: SDD on head; femoral incision Musculoskeletal: ROM: LE WFL Strength: RLE slightly weaker 4/5 vs LLE 5/5 Sensation: intact Bed Mobility: Supine to Sit: cgA, initially very dizzy and had to lay back down; use of bed railings Sit to Supine: did not assess Transfers: Sit to Stand: cgA, vc's for hand placement Stand to Sit: S, vc's for hand placement Bed to Chair: Alexsander, FWW Gait: Distance: ~20' Device used: FWW Level of assist: Alexsander, additional assist for line management Gait mechanics: decreased luis a, shuffling gait, decreased foot clearance, vc's to increase velocity Pt fatigued and wished to turn around Stairs: deferred Balance: Sitting Static: good Sitting Dynamic: fair, able to reach down for socks Standing Static: good Standing Dynamic / Gait: Fair with FWW Education: patient has been educated on Bed mobility, Transfers, Assistive device/technique, Gait ,Role of therapy, Balance and Discharge planning and needs reinforcement. understanding. Patient status, treatment, and mobility recommendations discussed with nursing. Assessment: Josue Nguyen was seen today for physical therapy evaluation. Patient presents with RLE weakness, impaired skin integumentary, impaired tolerance to upright mobility (reporting dizziness during session) with subsequent impairments in his overall gait and functional mobility. Patient is not at his independent baseline at this time and would benefit from acute rehab upon discharge.Thept would benefit from skilled therapy services while in the hospital to maximize functional abilities. Discharge Recommendations: Based on the current findings, Anticipated Discharge Disposition: inpatient acute rehabilitation when medically ready for hospital discharge. Consult Recommendations: No other consults recommended at this time. Equipment needs: TBD Goals: To be achieved by 11/18/2019: 1. Pt. to demonstrate knowledge of safety limitations and precautions and will appropriately request assistance for functional activities and to mobilize. 2. Pt. to demonstrate understanding of appropriate LE exercises. 3. Pt. to perform bed mobility independently. 4. Pt. to perform sit to stand and stand step transfers with modified independence using LRAD. 5. Pt. to ambulate 300 feet with modified independence using a LRAD. 6. Pt. to ambulate up/down 3 step/stairs using two rails independently. 7. Pt will tolerate progression towards upright with stable vital signs. Plan: Therapy Frequency: 3-5 times/wk for therapy including balance training, bed mobility training, gait training, patient/family education, stair training, strengthening, stretching and transfer training. Patient/family understand and agree with plan as stated above. 2017 PT Evaluation Code Rationale: ?? Diagnosis & Pertinent Co-Morbidities, personal factors, and present illness affecting Plan of Care: (see above); Additional personal factors or co- morbidities that impact plan: ?? Total # of Factors: 0 1-2 3+ x ?? Examination of body system impairments, functional limitations and behaviors, and/or participation restrictions. Addressing 1-2 elements Addressing 3 + elements Addressing 4 + elements x ?? Clinical presentation: See assessment above. Stable/Uncomplicated Evolving/Fluctuating Symptoms Unstable/Unpredictable x ?? Clinical decision making of moderate complexity based on pt's functional performance as outlinedin this evaluation. Time IN / OUT: 4228-9151 Total Evaluation Minutes, Physical Therapy: 32(eval; TEF) Steffen Almazan, PT Pager: [phone] Physical Therapy Inpatient Rehabilitation Department * Plan of Care - Neelam Flanagan, OT - 11/04/2019 10:31 AM EDT Occupational Therapy Evaluation Patient profile: Josue Nguyen??is a 74 y.o.??male??with PMH of HTN, HLD, and DM with progressively worsening RIGHT sided weakness found to have a large LEFT frontal/parietal mixed attenuation SDH.L SEPS drain placement on 11/01. SDD placed on 11/02. LLA embolization on 11/02. Past Medical History: Diagnosis Date ??? Diabetes mellitus ??? Hypertension Past Surgical History: Procedure Laterality Date ??? PRO PERM OCCLUSION/EMBOLIZATION, PERCUT, QUALITY ASSOCIATE N/A 11/03/2019 @TRANSCATHETER OCCLUSION/EMBOLIZATION FOR TUMOR DESTRUCTION performed by Hussain Christianson MD at [facility] ??? TONSILLECTOMY Social History: Patient lives alone. Home Setup: Patient lives in an apartment with three steps to enter and two railings. Patient has atub shower. DME: cane Baseline ADL/Mobility: Patient independent with ADLS and IADLs. Patient driving. Patient fell a fewdays ago prior to admit in shower. Precautions/Special Considerations: fall Subjective: I think your right (about rehab). Objective: Seen today for OT evaluation with PT. Cognitive Status/Behavior: ?? Behavior / Mood: alert and cooperative ?? Alert and oriented to: person, place and time ?? Follows commands: 100% of the time ?? Attention: WFL ?? Safety awareness: WFL ?? Executive functioning: Patient asked to draw a picture of a clock. Patient able to draw numbers except did not place eleven on clock. When asked to place the time at ten past eleven patient placedtwo hands on the left side of the clock (after second cue to draw the hands vs just a line to indicate time). ?? STM able to remember 2/3 random words Vision & Perception: ?? Able to tell time. Patient able to read large print. Communication: WFL Range of motion, strength, coordination: Hand dominance: right Bilateral UEs are within functional limitations Sensation: Appears intact Activities of Daily Living Dressing: Patient able to dress LB minimal assistance. Toileting: Transfer: Minimal assistance with walker Functional Mobility: Supine to sit: CTG A (dizzy) Sit to stand: CTG A Ambulation: Minimal assistance with FWW 20 feet Stand to sit: CTG A Balance: Sitting balance: Good Standing balance:Fair dynamic with walker Vitals: ?? At Rest With Activity SpO2 (RA) 96% 98% BP (MAP) 140/57mmHg sitting 138/55mmHg after standing 119/62mmHg (end of session) HR 55bpm ? Pain: 06/27 head Skin: Appears intact Education: patient have been educated on Role of occupational therapy/rehabilitation, Transfers, Assistive device/technique, ADL, Safety, Functional Mobility, Recommendations and Discharge planning and needs reinforcement. understanding. Patient status, treatment, and mobility recommendations discussed with nursing. Assessment: Pt has been seen for occupational therapy evaluation. Josue Nguyen presents with the following performance skill deficits and client factors: increased pain, decreased activity tolerance, decreased strength, decreased sitting/standing balance, cognitive deficits and compromised mobility status. T hese performance deficits have led to activity limitations and participation restrictions in the following areas of occupation: dressing, bathing, grooming, toileting, transfers/mobility, home management, leisure, driving and community mobility. Patient lives on his own and needs to be independent at d/c with receptiveness to further rehab in inpatient setting. Patient motivated to participate intherapy with need of minimal assistance for ADLS. Patient may benefit from further cognitive assessment for d/c planning. Pt would benefit from further inpatient OT interventions to address performance deficits and maximize participation and independence with occupations of daily living. Equipment needs at discharge: shower chair, FWW Anticipated Discharge Disposition: inpatient acute rehabilitation Other Recommendations: ?? Utilize upright chair position using bed features or transfer to recliner chair as appropriate with Minimal assistance with walker, ambulate as tolerated ?? Encourage participation in ADL's by providing set up A on tray table and physical assist only asneeded Other Recommendations: Inpatient Rehabilitation consult Goals: To be achieved by 11/18/19. Patient will stand at sink level with supervision x10 min for ADLs. Patient will dress lower body indep with adaptive equipment prn. Patient will perform simple kitchen mgt with appropriate assistive device as needed and supervision. Patient will ambulate to the bathroom with supervision, assistive device as needed. Patient will remember and retrieve 5/5 items for ADL tasks independently. Plan: OT: Therapy Frequency: 3-5 times/wk Planned OT interventions: Role of occupational therapy/rehabilitation, Transfers, Assistive device/technique, Adaptive equipment training, ADL, Safety, Precautions/Protocol, Functional Mobility, HomeManagement, Balance, Recommendations and Discharge planning. Total Evaluation Minutes, Occupational Therapy: 36 2016 OT Evaluation Code Rationale: ?? Diagnosis & Pertinent Co-Morbidities affecting Plan of Care: see PMHx ?? Occupational Profile & Client History: Brief Expanded Extensive x ?? Assessment of Occupational Performance: 1-3 performance deficits 3-5 performance deficits 5 + performance deficits x ?? Clinical Decision Making: Low Moderate High x Clinical decision making of moderate complexity using standardized patient assessment instrument and measurable assessment of functional outcome. Pager: [phone] NEELAM FLANAGAN OT 11/04/2019 Occupational Therapy Rehabilitation Department * Plan of Care - Angela Ervin RN - 11/04/2019 7:02 AM EDT Problem: Patient Care Overview Goal: Plan of Care Review Outcome: Ongoing (Interventions Implemented as Appropriate) 11/04/19 07 Coping/Psychosocial Plan Of Care Reviewed With patient Plan of Care Review Progress no change OUTCOME EVALUATION NOTE: OUTCOME SUMMARY: Patient to 524 from PACU around 23:30. Neuro assessment WNL and unchanged throughout shift. 50 ml serosanguinous output in L subdural drain. CT obtained as ordered. PLAN MOVING FORWARD: PT/OT, transfer to lower level of care when clinically appropriate CPG GOAL OUTCOME EVALUATION: Problem: Skin Integrity Impairment, Risk/Actual (Adult) Goal: Identify Related Risk Factors and Signs and Symptoms Related risk factors and signs and symptoms are identified upon initiation of Human Response Clinical Practice Guideline (CPG) Outcome: Ongoing (Interventions Implemented as Appropriate) 11/04/19 07 Skin Integrity Impairment, Risk/Actual Skin Integrity Impairment, Risk/Actual: Related Risk Factors immobility;surgery/procedure * Plan of Care - Krystal Hernandez RN - 11/03/2019 6:45 PM EDT Problem: Patient Care Overview Goal: Plan of Care Review OUTCOME EVALUATION NOTE: ?? OUTCOME SUMMARY: ?? Patient was alert and oriented throughout shift, though was intermittently lethargic and would wakeup disoriented. RUE and RLE 4/5. SEPS drain removed and another subdural drain placed bedside. Flowfrom new SDD more productive, though moved to IR for MMA embolization before measured. Clear speech. Slight right FD though resolving. Pain intermittent throughout shift. Given tylenol. VEEG discontinued. ?? PLAN MOVING FORWARD: ?? Q2 Neuro Q2 VS Measuring SDD output ?? INDIVIDUALIZED FALL PREVENTION INTERVENTIONS: ?? Patient-specific fall risk factors per assessment: generalized weakness ?? Assistance: 2 assist ?? Supervision: Hands on ?? Surveillance: Bed locked in low position, call reddy within reach, purposeful hourly rounding, clutter free environment, bed/chair alarm on ?? Patient-specific fall prevention interventions for sensory deficits provided: N/A ?? CPG GOAL OUTCOME EVALUATION: ?? Continue care plan as documented. * Brief Op Note - Amor Singletary DO - 11/03/2019 5:10 PM EDT INTERVENTIONAL RADIOLOGY BRIEF PROCEDURE NOTE Patient Name: Josue Nguyen : 1945 Case Date: 11/03/2019 Operators: Attending: Hussain Christianson MD Resident/Fellow/Student: Amor Singletary DO Post-operative diagnosis/Indication: LEFT subdural hematoma, acute on chronic Name of Procedure Performed: Planned procedure: LEFT middle meningeal artery embolization Brief description of the procedure: ?? Right INTERNAL SPECIALIST access with micropuncture technique and placement of a 5 Fr sheath ?? Sequential selection and angiography of the left ICA, left ECA, right ICA, right ECA, right vertebral artery, and left vertebral artery ?? Superselection and angiography of the left MMA and frontal division of the left MMA ?? Embolization of the frontal division of the left MMA with 250 um Embozene particles ?? Right INTERNAL SPECIALIST roadmap ?? Closure of right INTERNAL SPECIALIST access with Mynx closure device Findings of the procedure: ?? Small foci of contrast blush from a small branch of the frontal division of the left MMA ?? Small foci of contrast blush from a small branch of the parietal division of the left MMA ?? dAVF in the left parietal region with drainage to dilated cortical veins and feeding arteries from the parietal division of the left MMA and left occipital artery EBL: <50 mL Specimens: _N/A_ Complications: No immediate Plan/Disposition: To PACU Resume care by clinical team/Neurosurgery FULL PROCEDURE NOTE TO FOLLOW IN IMAGE REPORT * Plan of Care - Steffen Almazan PT - 11/03/2019 1:29 PM EDT PHYSICAL THERAPY NOTE Orders received and chart reviewed. Patient currently on bedrest. After discussion with neurosurgery potentially pending OR/procedure today. Plan to hold on evaluation at this time. Therapy to followup as able/appropriate. Steffen Almazan PT, DPT Pager [phone] Inpatient Rehabilitation * Plan of Care - Adia Edwards OT - 11/03/2019 1:01 PM EDT Occupational Therapy Contact Note: Order received and chart reviewed. Per RN; Pt on bedrest and awaiting embolization later today. Plan to follow-up tomorrow as Pt is appropriate and as activity orders are updated. Adia Edwards MS, OTR/L Occupational Therapist Pager: [phone] Inpatient Rehabilitation Services * Consult Note - Shannon Garcia MD - 11/03/2019 6:44 AM EDT Neurology Inpatient Consult Note - 11/03/2019 Admit date: 11/01/2019 Attending: Casey Singh MD ID: Josue Nguyen is a 74 y.o. male with PMHx of HTN, HLD, DM2 [facility]umed [facility] on chronic). Neurology has been consulted for episodes of confusion concerning for seizures. Interval events: - SEPS placed yesterday - c/o MENA overnight, received CTH which showed no acute changes - Pt AAOx4 throughout the night with the exception of intermittenly confused about place orientation - EEG shows no epileptiform activity Review of Systems: Negative except as documented in the HPI. Hospital Medications: Current Facility-Administered Medications Medication Dose Route Frequency Provider Last Rate Last Dose ??? lisinopriL (Prinivil;Zestril) tablet 5 mg 5 mg Oral Daily Bogdan, Maty A, SPECIMEN TECHNICIAN 5 mg at ??? metFORMIN (Glucophage) tablet 1,000 mg 1,000 mg Oral BID WC Bogdan, Maty A, SPECIMEN TECHNICIAN 1,000 mg at 11/02/19 1753 ??? sodium chloride 0.9 % (flush) flush 5 mL 5 mL Intravenous BID Bogdan, Maty A, SPECIMEN TECHNICIAN 5 mL at 11/02/19 2100 ??? sodium chloride 0.9 % (flush) flush 5-20 mL 5-20 mL Intravenous Q1 Min PRN Bogdan, Maty A, SPECIMEN TECHNICIAN ??? lidocaine (XYLOCAINE) 10 mg/mL (1 %) injection 3 mg 0.3 mL Subcutaneous Once PRN Bogdan, Maty A, SPECIMEN TECHNICIAN ??? docusate sodium (Colace) capsule 100 mg 100 mg Oral BID Bogdan, Maty A, SPECIMEN TECHNICIAN 100 mg at ??? ondansetron (Zofran) tablet 4-8 mg 4-8 mg Oral Q8H PRN Bogdan, Maty A, SPECIMEN TECHNICIAN Or ??? ondansetron (ZOFRAN) injection 4-8 mg 4-8 mg Intravenous Q8H PRN Bogdan, Maty A, SPECIMEN TECHNICIAN ??? acetaminophen (Tylenol) tablet 650 mg 650 mg Oral Q4H PRN Bogdan, Maty A, SPECIMEN TECHNICIAN 650 mg at 11/02/19 1838 Or ??? acetaminophen (Tylenol) suppository 650 mg 650 mg Rectal Q4H PRN Bogdan, Maty A, SPECIMEN TECHNICIAN ??? labetalol (NORMODYNE,TRANDATE) injection 10-20 mg 10-20 mg Intravenous Q1H PRN Bogdan, Maty A, SPECIMEN TECHNICIAN ??? hydrALAZINE (APRESOLINE) injection 10 mg 10 mg Intravenous Q1H PRN Bogdan, Maty A, SPECIMEN TECHNICIAN ??? levETIRAcetam (Keppra) tablet 500 mg 500 mg Oral BID Bogdan, Maty A, SPECIMEN TECHNICIAN 500 mg at 11/02/192026 Or ??? levETIRAcetam (KEPPRA) 500 mg in sodium chloride 0.82% 100 mL 500 mg Intravenous BID Bogdan, Maty A, SPECIMEN TECHNICIAN ??? glucose (GLUTOSE) 40% oral geL 15-30 g Buccal Q30 Min PRN Bogdan, Maty A, SPECIMEN TECHNICIAN Or ??? dextrose 10% infusion 250 mL Intravenous Q30 Min PRN Bogdan, Maty A, SPECIMEN TECHNICIAN Or ??? glucagon (human recombinant) injection SolR 1 mg 1 mg Intramuscular Q30 Min PRN Bogdan, Maty A,SPECIMEN TECHNICIAN ??? insulin lispro (HumaLOG) VIAL injection 1-5 Units 1-5 Units Subcutaneous TID AC Bogdan, Maty A,SPECIMEN TECHNICIAN ??? ceFAZolin (ANCEF) 1g in dextrose 5% 50mL 1 g Intravenous Q8H Charlene Louis MD Stopped at 11/03/19 0431 ??? sodium chloride 0.9% infusion 100 mL/hr Intravenous Continuous Bogdan, Maty A, SPECIMEN TECHNICIAN 100 mL/hr at 11/03/19 0352 100 mL/hr at 11/03/19 0352 Home Medications: No current facility-administered medications on file prior to encounter. Current Outpatient Medications on File Prior to Encounter Medication Sig Dispense Refill ??? lisinopriL (Prinivil;Zestril) 5 mg Tablet Take 5 mg by mouth daily. ??? metFORMIN (GLUCOPHAGE) 1,000 mg Tablet Take 1,000 mg by mouth 2 times daily (with meals). Past Medical History: Past Medical History: Diagnosis Date ??? Diabetes mellitus ??? Hypertension Past Surgical History: Procedure Laterality Date ??? TONSILLECTOMY Allergies: No Known Allergies Family history: No family history on file. Social history: Social History Socioeconomic History ??? Marital status: [...] Years: 50.00 Pack years: 50.00 Types: Cigarettes Last attempt to quit: 2003 Years since quittin.5 Substance and Sexual Activity ??? Alcohol use: Not on file ??? Drug use: Not on file ??? Sexual activity: Not on file Lifestyle ??? Physical activity Days per week: Not on file Minutes per session: Not on file ??? Stress: Not on file Relationships ??? Social connections Talks on phone: Not on file Gets together: Not on file Attends amish service: Not on file Active member of [...] Social History Narrative ??? Not on file Physical Exam: Vitals: Last value Range last 24 hrs Temperature Temp: 36.6 ??C (97.8 ??F) Temp: [36 ??C (96.8 ??F)-36.7 ??C (98.1 ??F)] Heart Rate Heart Rate: (!) 47 Heart Rate: [47-59] Blood Pressure BP: 142/58 BP: (107-142)/(47-78) Respiratory Rate Resp: 14 Resp: [12-22] SpO2 SpO2: 96 % SpO2: [96 %-98 %] I/O: 11/01 0701 - 11/02 0700 In: 1464 [P.O.:400; I.V.:1064] Out: 1946.5 [Urine:1925] General: Appears stated age, WDWN, NAD HEENT: NC/AT, MMM Pulm: Normal WOB CV: NRRR Extremities: No C/C/E. Peripheral pulses intact. Neuro: MS: AAOx4 Follows verbal commands intermittently, does not cross midline, able to pantomime effectively Language: Mildly dysarthric, no paraphasic errors, repetition intact Memory intact to current but not penultimate or first POTUS. CN: CN II, III, IV, - PERRLA, EOMI without nystagmus CN V - Facial sensation intact/symmetric CN VII - Slight R NLF flattening CN VIII - Hearing intact to voice/finger rub CN IX, X - Symmetric palate elevation CN XI - SCM, trap strength symmetric CN XII - Tongue midline Motor: Atrophy: None appreciated. Tone: Normal throughout Strength: Roots Muscles Action Right Left C5-6 Deltoid Shoulder abduction 4 5 C5-6 Brachialis / Biceps brachii Elbow flexion 4 5 C6-8 Triceps brachii Elbow extension 4 5 C7-T1 Flexor digitorum profundus Digit II-V flexion / lumber trimmer 4 5 L2-3 Iliopsoas Hip flexion 4 5 L3-4 Quadriceps femoris Knee extension 4 5 L4-5 Tibialis anterior Ankle dorsiflexion/inversion 4 5 L4-S1 Hamstrings Knee flexion 4 5 L5-S2 Triceps surae Ankle plantarflexion 4 5 Sensory: Intact to light touch throughout Negative pronator drift Reflexes: DTRs deferred Toes equivocal (withdraws bilaterally) Coordination: FNF slightly dysmetric on the right without pass-pointing or tremor Gait: Not assessed Labs: Last 3 wbc, hgb, hct plt Recent Labs 11/03/19 0511/02/19 2303 11/02/19 010 WBC 7.4 8.6 7.7 HGB 13.7 13.2* 13.6* HCT 41.8 40.2* 40.6 PLATELET 187 177 176 Last 3 Lytes Recent Labs 11/03/19 0526 11/02/19 01011/01/19 2114 NA 140 141 138 K 4.3 4.0 3.9 CL 106 107 103 CO2 24 26 23 BUN 13 12 14 CREATININE 0.99 1.12 0.92 Last Ca, Mg, Phos Recent Labs 11/03/19 05 CALCIUM 8.7 Last 3 Coags Recent Labs 11/02/19 2303 11/01/194 PT 11.4 12.4 INR 1.0 1.1 PTT 31 30 Diagnostic Tests and Imaging: CT Head: Images reviewed; there is a large left sided subdural hematoma with acute anterior and older posterior/superior blood products. This collection causes a moderate midline shift with partial effacement of the left lateral ventricle posteriorly. Assessment: Josue Nguyen is a 74 y.o. male with PMHx of HTN, HLD, DM2 who presents in transfer from [facility] with a LEFT subdural hematoma (presumed acute on chronic). Neurology has been consulted for episodes ofconfusion concerning for seizures. His examination is significant for right-sided hemiparesis as well as mild encephalopathy; his mental status appears to wax and wane (following the trend from primary team and nursing documentation this evening). Josue has had resolution of his symptoms and remains AAOx4. EEG is unremarkable for any epilepticevent. No further work up is indicated. Recommendations: - discontinue EEG - Continue Keppra 500mg BID; further - Minimize sedating/anticholinergic meds ?? Consult service will continue to follow patient. x Recommendations are above, please page [phone] if further consultation is required. Shannon Garcia MD Neurology, PGY-3 Consult Neurology Service #[phone] 11/03/2019 Associated attestation - Josue Reyes MD - 11/13/2019 7:30 PM EDT Neurology Attending Note Josue Reyes MD PhD (pager [phone]) I have seen and examined Josue Nguyen on 11/02 with resident , whose note contains our history, exam, data/imaging review and assessment and recommendations. * Plan of Care - Krystal Hernandez RN - 11/02/2019 5:52 PM EDT Problem: Patient Care Overview Goal: Plan of Care Review Outcome: Ongoing (Interventions Implemented as Appropriate) 11/02/19 0800 Coping/Psychosocial Plan Of Care Reviewed With patient OUTCOME EVALUATION NOTE: OUTCOME SUMMARY: Pt. Aaox4 throughout shift. Is a bit delayed to figure out what's going on, but is oriented. Upper and lower extremities on the right are 4/5. Left side is 5/5 upper and lower. Numbness and tingling reported in right hand and fingers. AVSS. HR kenya. Patient has drain placed bedside with minimal drainage. Said he seemed more alert after drain placement. Neuro check stable. Continue to monitor. PLAN MOVING FORWARD: MMA embolization Neuro checks Vitals signs mobilize INDIVIDUALIZED FALL PREVENTION INTERVENTIONS: Patient-specific fall risk factors per assessment: weakness, intermittent confusion Assistance: 1-2 assist Supervision: arms reach Surveillance: Bed locked in low position, call reddy within reach, purposeful hourly rounding, bed/chair alarm on, clutter free room Patient-specific fall prevention interventions for sensory deficits provided: yes CPG GOAL OUTCOME EVALUATION: Continue care plan as documented. Stroke Education Modifiable risk factors (Ischemic & Hemorrhagic): Checked box [x] indicates present [x ] Hypertension [ ] Use of Oral Contraceptive [x ] Smoker (or exposure to cigarette smoke) [ ] Poor Diet/Nutrition [x ] Diabetes [ ] Physical Inactivity [x ] Hyperlipidemia [ ] Obesity [ ] Atrial Fibrillation [ ] Sleep Apnea [ ] Asymptomatic carotid artery stenosis [ ] Post-menopausal hormone therapy (Hemorrhagic stroke specific) [x ] High alcohol intake [ ] Anticoagulation [ ] Use of sympathomimetic drugs (i.e. cocaine, amphetamine, methamphetamine) Patient Education Provided: Checked box [x] indicates done [ ] Ischemic, Hemorrhagic, TIA education packet provided [ ] Supplemental Personalized Educational Material added to packet, including: [x ] Personal Risk Factors [ x] Warning signs of stroke [ ] Activation of an emergency medical system [ ] Need for follow-up after discharge [ ] Medications prescribed The above items were reviewed in detail today. Patient/family expresses understanding of the likelycauses of this stroke, personal risk factors, diagnostic considerations, hospital course thus far, and treatment plan going forward. Patient and/or family members have received personalized stroke edu cational materials to review and were allowed time for questions and answers. There are no further questions at this time. They were encouraged to review the educational handouts provided and write down any questions that may arise for the vascular neurology team to address at a later time. Patient discharge plans include: [ ] home discharge [ ] Acute Rehab [ ] home with family assistance [ ] Other [ ] home with VNA services [x ] Unknown at this time in hospital course [ ] Long Term Facility * Care Management - Chhaya Olivarez RN - 11/02/2019 3:55 PM EDT This CM along with PROFESSOR OF ENVIRONMENTAL SCIENCE called and spoke to pt's dtr to gather more information for d/c planning. Dtr,, Loretta, stated that pt was very independent and active in the community prior to hospitalization.Due to the remote location of where the pt lives, there is very limited community support. Loretta states pt has a friend, Guadalupe, who lives in [place], [place] and a grandson, ex-son in law who livesin [place], [place]. Pt's dtr is very supportive, but lives in [place]. Pt's dtr stated she would be happy to support her father going for a rehab stay prior to returning home and VNA afterward if needed. Per dtr, pt has not had VNA, but pt's has prior to her passing. Also, pt has been to [facility] in the past. Pt's dtr stated concern of COVID exposure, pt's dtr was educated on the screening process for pt's coming into facilities and staff prior to coming into buildingsfor work daily. CM will continue to monitor and assist with d/c planning as needed. Chhaya Olivarez MSN, RN CM quahogger Office of Care Management Pager #[phone] * Initial Assessments - Biju Lewis MSW - 11/02/2019 8:05 AM EDT Office of Care Management Initial Assessment JENNIFER Vega reviewed record and discussed patient with Care Team. Source of Information: Patient (slow and whimsical in responses), Chart, Treatment Team Introduced self/reviewed role; services accepted. Reason for Hospitalization: transfer from [facility] with a LEFT subdural hematoma (presumed acute on chronic). Past Medical History: Diagnosis Date ??? Diabetes mellitus ??? Hypertension Hospitalizations Within the Past 30 Days: None Anticipated Length Of Stay (If known): Current Decision-Making Capacity: AO3 Advance Care Planning: none in eDH Current Coping/Education/Information Needs: has been given clinical updates by Care Teams and has been provided the opportunity to have questions/concerns addressed. Current Functional Ability: bedrest with drain Functional Status Prior to Admission: Independent and active in ADL's with 2 to 3-week history of progressively worsening right-sided arm and leg weakness (Kline consult note- 11/02/2019 ??2:58 AM) Home Environment: [address] single level home Social & Family Supports/Community Resources: daughter in [place], daughter in [place], sister in [place], wifes family, friends Behavioral Health History: a major period of anxiety following 's of COPD Substance Use/Abuse: Tobacco Use ??? Smoking status: Former Smoker- quit in 2002 ??? Smokeless tobacco: Never Used Substance Use Topics ??? Alcohol use: once of twice per year ??? Drug use: No Other Pertinent/Service Specific Information: worked at [facility] for a decade Health/Prescription Coverage: Primary Insurance: [facility] MANAGED MEDICARE Secondary Insurance: N/A Prescription Coverage: yes Preferred Pharmacy: [facility] Primary Care Provider: Shyam Harvey MD [phone] Patient/Caregiver Goals of Treatment: To be independent Potential Needs for Transition of Care: Rehab/SNF: [facility] if required Home Health: Never had agreed to [facility] if required DME: :I just got a can last week when this started to get bad Dialysis:NA Community Resources: Available Transportation: states he has plenty of people to take him home but sister from [place] called bedside nurse to say she is uncertain if he can get a ride from anyone Anticipated Barriers to Discharge/Special Considerations: none Assessment: 74 y.o. male with PMH of HTN, HLD, and DM who presented to the ED at [facility] after having an outpatient CT scan that was found to have a large LEFT sided, mixed attenuation SDH. The patient had presented to his PCP with a 2-3 week history of progressively worsening RIGHT upper and lower extremity weakness and periods of confusion where he feels like he is losing time. He was also notedon exam to have a RIGHT facial droop (H&P- Bogdan 11/01/2019 ??8:38 PM) Plan: Plan to evolve based on findings and therapy evals. A member of the Care Management team will continue to monitor progress, follow for continuity of care and assist with transition of care planning. JENNIFER Vega Pager: [phone] * Consult Note - Daquan Kline MD - 11/02/2019 2:58 AM EDT Neurology Inpatient Consult Note - 11/02/2019 Admit date: 11/01/2019 Attending: Casey Singh MD ID: Josue Nguyen is a 74 y.o. male with PMHx of HTN, HLD, DM2 who [facility] (presumed acute on chronic). Neurology has been consulted for episodes of confusion concerning for seizures. HPI: Briefly, patient presented to his PCP with a 2 to 3-week history of progressively worsening right-sided arm and leg weakness, as well as 5 to 7 days of left-sided headache and episodes of confusion/lost time. He has never had symptoms like this in the past, and does not have headaches regularly. No migrainous features. An outpatient CT scan was performed that demonstrated a large left-sided subdural hematoma with mixed attenuation products. He is not known to take any antiplatelet or anticoagulant medications; only metformin and lisinopril. No recent head trauma or falls; patient denies nausea, vomiting, sensory disturbance, loss of consciousness, changes in vision, balance, or hearing. While in the emergency department, the patient had a few episodes of confusion in which he attempted to climb out of bed; he states that he felt like he was not in control. He was restless, somewhat lethargic (dozing off intermittently), and repeatedly tried to unplug and replug his cell phone. He was noted to clear to a seemingly normal state of mind in between these episodes. Given the intracranial hemorrhage and the transience of these episodes, there was some concern that he may be havingunwitnessed seizures with postictal confusion. Keppra 1g load was given prior to my assessment. Epilepsy risk factors: Patient reports being born full-term by ; he did not have a prolonged hospitalization. No known meningoencephalitis or significant head trauma. No intracranial surgeries. No prior seizures, febrile or otherwise. Normal development and educational attainment. No knownfamily history of seizures or epilepsy. Review of Systems: Negative except as documented in the HPI. Hospital Medications: Current Facility-Administered Medications Medication Dose Route Frequency Provider Last Rate Last Dose ??? lisinopriL (Prinivil;Zestril) tablet 5 mg 5 mg Oral Daily Bogdan, Maty A, SPECIMEN TECHNICIAN ??? metFORMIN (Glucophage) tablet 1,000 mg 1,000 mg Oral BID WC Bogdan, Maty A, SPECIMEN TECHNICIAN ??? docusate sodium (Colace) capsule 100 mg 100 mg Oral BID Bogdan, Maty A, SPECIMEN TECHNICIAN ??? ondansetron (Zofran) tablet 4-8 mg 4-8 mg Oral Q8H PRN Bogdan, Maty A, SPECIMEN TECHNICIAN Or ??? ondansetron (ZOFRAN) injection 4-8 mg 4-8 mg Intravenous Q8H PRN Bogdan, Maty A, SPECIMEN TECHNICIAN ??? acetaminophen (Tylenol) tablet 650 mg 650 mg Oral Q4H PRN Bogdan, Maty A, SPECIMEN TECHNICIAN Or ??? acetaminophen (Tylenol) suppository 650 mg 650 mg Rectal Q4H PRN Bogdan, Maty A, SPECIMEN TECHNICIAN ??? labetalol (NORMODYNE,TRANDATE) injection 10-20 mg 10-20 mg Intravenous Q1H PRN Bogdan, Maty A, SPECIMEN TECHNICIAN ??? hydrALAZINE (APRESOLINE) injection 10 mg 10 mg Intravenous Q1H PRN Bogdan, Maty A, SPECIMEN TECHNICIAN ??? levETIRAcetam (Keppra) tablet 500 mg 500 mg Oral BID Bogdan, Maty A, SPECIMEN TECHNICIAN Or ??? levETIRAcetam (KEPPRA) 500 mg in sodium chloride 0.82% 100 mL 500 mg Intravenous BID Bogdan, Maty A, SPECIMEN TECHNICIAN ??? glucose (GLUTOSE) 40% oral geL 15-30 g Buccal Q30 Min PRN Bogdan, Maty A, SPECIMEN TECHNICIAN Or ??? dextrose 10% infusion 250 mL Intravenous Q30 Min PRN Bogdan, Maty A, SPECIMEN TECHNICIAN Or ??? glucagon (human recombinant) injection SolR 1 mg 1 mg Intramuscular Q30 Min PRN Bogdan Maty A,SPECIMEN TECHNICIAN ??? insulin lispro (HumaLOG) VIAL injection 1-5 Units 1-5 Units Subcutaneous TID AC Bogdan, Maty A,SPECIMEN TECHNICIAN ??? sodium chloride 0.9% infusion 100 mL/hr Intravenous Continuous Bogdan, Maty A, SPECIMEN TECHNICIAN 100 mL/hr at 11/01/19 2136 100 mL/hr at 11/01/19 2136 Home Medications: No current facility-administered medications on file prior to encounter. Current Outpatient Medications on File Prior to Encounter Medication Sig Dispense Refill ??? lisinopriL (Prinivil;Zestril) 5 mg Tablet Take 5 mg by mouth daily. ??? metFORMIN (GLUCOPHAGE) 1,000 mg Tablet Take 1,000 mg by mouth 2 times daily (with meals). Past Medical History: Past Medical History: Diagnosis Date ??? Diabetes mellitus ??? Hypertension Past Surgical History: Procedure Laterality Date ??? TONSILLECTOMY Allergies: No Known Allergies Family history: No family history on file. Social history: Social History Socioeconomic History ??? Marital status: [...] Years: 50.00 Pack years: 50.00 Types: Cigarettes Last attempt to quit: 2002 Years since quittin.5 Substance and Sexual Activity ??? Alcohol use: Not on file ??? Drug use: Not on file ??? Sexual activity: Not on file Lifestyle ??? Physical activity Days per week: Not on file Minutes per session: Not on file ??? Stress: Not on file Relationships ??? Social connections Talks on phone: Not on file Gets together: Not on file Attends amish service: Not on file Active member of [...] Social History Narrative ??? Not on file Physical Exam: Vitals: Last value Range last 24 hrs Temperature Temp: 36.6 ??C (97.9 ??F) Temp: [36.4 ??C (97.5 ??F)-36.8 ??C (98.2 ??F)] Heart Rate Heart Rate: 58 Heart Rate: [47-68] Blood Pressure BP: 143/76 BP: (99-151)/(53-100) Respiratory Rate Resp: 13 Resp: [13-23] SpO2 SpO2: 98 % SpO2: [95 %-98 %] I/O: 10/31 0701 - 11/01 0700 In: 287 [I.V.:287] Out: 300 [Urine:300] General: Appears stated age, WDWN, NAD HEENT: NC/AT, MMM Pulm: Normal WOB CV: NRRR Extremities: No C/C/E. Peripheral pulses intact. Neuro: MS: Alert, oriented to person, place, month and year but not date (October 30 2019) Follows verbal commands intermittently, does not cross midline, able to pantomime effectively Language: Mildly dysarthric, no paraphasic errors, repetition intact Memory intact to current but not penultimate or first POTUS. CN: CN II, III, IV, - PERRLA, EOMI without nystagmus CN V - Facial sensation intact/symmetric CN VII - Slight R NLF flattening CN VIII - Hearing intact to voice/finger rub CN IX, X - Symmetric palate elevation CN XI - SCM, trap strength symmetric CN XII - Tongue midline Motor: Atrophy: None appreciated. Tone: Normal throughout Strength: Roots Muscles Action Right Left C5-6 Deltoid Shoulder abduction 4 5 C5-6 Brachialis / Biceps brachii Elbow flexion 4 5 C6-8 Triceps brachii Elbow extension 4 5 C7-T1 Flexor digitorum profundus Digit II-V flexion / lumber trimmer 4 5 L2-3 Iliopsoas Hip flexion 4 5 L3-4 Quadriceps femoris Knee extension 4 5 L4-5 Tibialis anterior Ankle dorsiflexion/inversion 4 5 L4-S1 Hamstrings Knee flexion 4 5 L5-S2 Triceps surae Ankle plantarflexion 4 5 Sensory: Intact to light touch throughout Negative pronator drift Reflexes: DTRs deferred Toes equivocal (withdraws bilaterally) Coordination: FNF slightly dysmetric on the right without pass-pointing or tremor Gait: Not assessed Labs: Last 3 wbc, hgb, hct plt Recent Labs 11/02/1910011/01/192113 WBC 7.7 6.2 HGB 13.6* 13.6* HCT 40.6 41.5 PLATELET 176 185 Last 3 Lytes Recent Labs 11/02/1910011/01/192113 NA 141 138 K 4.0 3.9 CL 107 103 CO2 26 23 BUN 12 14 CREATININE 1.12 0.92 Last Ca, Mg, Phos Recent Labs 11/02/19100 CALCIUM 9.1 Last 3 Coags Recent Labs 11/01/192113 PT 12.4 INR 1.1 PTT 30 Diagnostic Tests and Imaging: CT Head: Images reviewed; there is a large left sided subdural hematoma with acute anterior and older posterior/superior blood products. This collection causes a moderate midline shift with partial effacement of the left lateral ventricle posteriorly. Assessment: Josue Nguyen is a 74 y.o. male with PMHx of HTN, HLD, DM2 who presents in transfer from [facility] with a LEFT subdural hematoma (presumed acute on chronic). Neurology has been consulted for episodes ofconfusion concerning for seizures. His examination is significant for right-sided hemiparesis as well as mild encephalopathy; his mental status appears to wax and wane (following the trend from primary team and nursing documentation this evening). Differential diagnosis includes focal seizures with impaired awareness, other toxic metabolic encephalopathy, chronic neurocognitive deficits not previously diagnosed, or behavioral overlay (not necessarily to the exclusion of other diagnoses). Given the presence of probable ongoing bleeding into his subdural space, would be reasonable to have him monitored on EEG for the night to assess for spells, interictal discharges, background asymmetry and other signs of encephalopathy. Recommendations: - Continuous video EEG reasonable - Continue Keppra 500mg BID; further AED recs to follow EEG interpretation - Consider checking LFT, NH3, TSH, thiamine, B12, UDS if persistently delirious - Consider thiamine 100mg TID empiric repletion - Minimize sedating/anticholinergic meds ?? X Consult service will continue to follow patient. Recommendations are above, please page [phone] if further consultation is required. Patient discussed with Dr. Fely Santos. Daquan Kline MD Neurology, PGY-4 Consult Neurology Service #[id number] 11/02/2019 Associated attestation - Josue Reyes MD - 11/10/2019 3:26 AM EDT Neurology Attending Note Josue Reyes MD PhD (pager [phone]) I have seen and examined Josue Nguyen on 11/[address] Garcia and agree with the note by Dr. Kline, including his history, exam, data/imaging review and assessment and recommendations. * ED Triage - Alissa Garnica NRP - 11/01/2019 7:18 PM EDT Pt arrived via EMS from OSH for eval and higher level of care for SDH. Pt c/o 2- 3 week hx of R sided weakness. Denies any s/s currently. Pt given keppra [employer] CHECKER. documented in this encounter Plan of Treatment Scheduled Orders Name Type Priority Associated Diagnoses Orde r Schedule 24 Hour EEG, Portable Neurology Routine One Time for 1 Occurrences starting 11/02/2019 until 11/02/2019 24 Hour EEG, Portable Neurology Routine One Time for 1 Occurrences starting 11/08/2019 until 11/08/2019 Scheduled Referrals Name Type Priority Associated Diagnoses Orde r Schedule Referral to Neurology Outpatient Referral Routine SDH (subdural hematoma) Ordered: 11/16/2019 documented as of this encounter Procedures Procedure Name Priority Date/Time Associated Diagnosis Comments POCT GLUCOSE Routine 11/16/2019 4:08 PM EDT POCT GLUCOSE Routine 11/16/2019 12:15 PM EDT POCT GLUCOSE Routine 11/16/2019 7:48 AM EDT POCT GLUCOSE Routine 11/15/2019 8:00 PM EDT HC VALPROIC ACID Routine 11/15/2019 4:31 PM EDT POCT GLUCOSE Routine 11/15/2019 4:[address] HEAD WO CONTRAST (GENERIC) STAT 11/15/2019 3:21 PM EDT POCT GLUCOSE Routine 11/15/2019 11:56 AM EDT POCT GLUCOSE Routine 11/15/2019 8:07 AM EDT HEMOGRAM Routine 11/15/2019 1:36 AM EDT DIFFERENTIAL, AUTOMATED Routine 11/15/2019 1:36 AM EDT HC CBC,PLT & AUTO DIFF Routine 0 1:36 AM EDT HC VALPROIC ACID Routine 11/15/2019 1:36 AM EDT HC VENIPUNCTURE Routine 11/15/2019 1:36 AM EDT POCT GLUCOSE Routine 11/14/2019 5:06 PM EDT POCT GLUCOSE Routine 11/14/2019 3:15 PM EDT POCT GLUCOSE Routine 11/14/2019 1:59 PM EDT IR EMBOLIZATION INTRACRANIAL Routine 11/14/2019 1:39 PM EDT BLOOD GAS ARTERIAL POC Routine 0 8:43 AM EDT Perm Occlusion/Embolization , Percut, Steamtable Attendant Railroad ([id number]) 11/14/2019 7:44 AM EDT 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 HEMOGRAM Routine 11/14/2019 2:05 AM EDT DIFFERENTIAL, AUTOMATED Routine 11/14/2019 2:05 AM EDT HC CBC,PLT & AUTO DIFF Routine 0 2:05 AM EDT HC VALPROIC ACID Routine 11/14/2019 2:05 AM EDT HC VENIPUNCTURE Routine 11/14/2019 2:05 AM EDT POCT GLUCOSE Routine 11/13/2019 8:56 PM EDT POCT GLUCOSE Routine 11/13/2019 5:07 PM EDT POCT GLUCOSE Routine 11/13/2019 11:56 AM EDT POCT GLUCOSE Routine 11/13/2019 7:48 AM EDT HEMOGRAM Routine 11/13/2019 2:03 AM EDT DIFFERENTIAL, AUTOMATED Routine 11/13/2019 2:03 AM EDT HC CBC,PLT & AUTO DIFF Routine 0 2:03 AM EDT HC VALPROIC ACID Routine 11/13/2019 2:03 AM EDT HC VENIPUNCTURE Routine 11/13/2019 2:03 AM EDT POCT GLUCOSE Routine 11/12/2019 8:32 PM EDT POCT GLUCOSE Routine 11/12/2019 6:14 PM EDT POCT GLUCOSE Routine 11/12/2019 12:02 PM EDT POCT GLUCOSE Routine 11/12/2019 7:29 AM EDT URINALYSIS WITH REFLEX CULTURE STAT 11/12/2019 2:11 AM EDT HEMOGRAM Routine 11/12/2019 1:33 AM EDT DIFFERENTIAL, AUTOMATED Routine 11/12/2019 1:33 AM EDT HC CBC,PLT & AUTO DIFF Routine 0 1:33 AM EDT HC AMMONIA, PLASMA Routine 11/12/2019 1: 33 AM EDT HC VALPROIC ACID Routine 11/12/2019 1:33 AM EDT HEPATIC FUNCTION PANEL Routine 0 1:33 AM EDT HC VENIPUNCTURE Routine 11/12/2019 1:[address] HEAD WO CONTRAST (GENERIC) STAT 11/11/2019 5:52 PM EDT POCT GLUCOSE Routine 11/11/2019 5:06 PM EDT POCT GLUCOSE Routine 11/11/2019 11:44 AM EDT POCT GLUCOSE Routine 11/11/2019 8:49 AM EDT HEMOGRAM Routine 11/11/2019 2:07 AM EDT DIFFERENTIAL, AUTOMATED Routine 11/11/2019 2:07 AM EDT HC CBC,PLT & AUTO DIFF Routine 0 2:07 AM EDT HC VENIPUNCTURE Routine 11/11/2019 2:07 AM EDT POCT GLUCOSE Routine 11/10/2019 10:12 PM EDT POCT GLUCOSE Routine 11/10/2019 5:04 PM EDT POCT GLUCOSE Routine 11/10/2019 2:31 PM EDT CRANI-SUB\EXTRADURAL HEMATOMA EVAC, PEDRO PABLO HOLE Routine 11/10/2019 2:08 PM EDT Pedro Pablo Hole Evac Subdur/Extra Hematoma ([id number]) 11/10/2019 12:39 PM EDT Subdural hematoma POCT GLUCOSE Routine 11/10/2019 11:30 AM EDT POCT GLUCOSE Routine 11/10/2019 10:59 AM EDT POCT GLUCOSE Routine 11/10/2019 8:12 AM EDT HEMOGRAM Routine 11/10/2019 1:27 AM EDT DIFFERENTIAL, AUTOMATED Routine 11/10/2019 1:27 AM EDT HC CBC,PLT & AUTO DIFF Routine 0 1:27 AM EDT HC VENIPUNCTURE Routine 11/10/2019 1:27 AM EDT POCT GLUCOSE Routine 11/09/2019 10:18 PM EDT POCT GLUCOSE Routine 11/09/2019 4:17 PM EDT ABORH RECHECK STATUS Routine 11/09/2019 12:21 PM EDT ABO/RH TYPING Routine 11/09/2019 12:21 PM EDT HC PARTIAL THROMBOPLASTIN TIME Routine 11/09/2019 12:21 PM EDT HC PROTHROMBIN TIME Routine 11/09/2019 1 2:21 PM EDT ANTIBODY SCREEN Routine 11/09/2019 12:21 PM EDT HC ANTIBODY DETECTION,CAPTURE-R Routine 11/09/2019 12:21 PM EDT POCT GLUCOSE Routine 11/09/2019 11:27 AM EDT POCT GLUCOSE Routine 11/09/2019 7:52 AM EDT POCT GLUCOSE Routine 11/09/2019 7:24 AM EDT HEMOGRAM Routine 11/09/2019 2:26 AM EDT DIFFERENTIAL, AUTOMATED Routine 11/09/2019 2:26 AM EDT HC CBC,PLT & AUTO DIFF Routine 0 2:26 AM EDT HC VENIPUNCTURE Routine 11/09/2019 2:[address] HEAD WO CONTRAST (GENERIC) STAT 11/09/2019 1:08 AM EDT POCT GLUCOSE Routine 11/08/2019 8:58 PM EDT POCT GLUCOSE Routine 11/08/2019 5:37 PM EDT POCT GLUCOSE Routine 11/08/2019 11:36 AM EDT POCT GLUCOSE Routine 11/08/2019 8:05 AM EDT HEMOGRAM Routine 11/08/2019 2:24 AM EDT DIFFERENTIAL, AUTOMATED Routine 11/08/2019 2:24 AM EDT HC CBC,PLT & AUTO DIFF Routine 0 2:24 AM EDT HC VENIPUNCTURE Routine 11/08/2019 2:24 AM EDT POCT GLUCOSE Routine 11/07/2019 8:55 PM EDT POCT GLUCOSE Routine 11/07/2019 5:11 PM EDT POCT GLUCOSE Routine 11/07/2019 11:53 AM EDT POCT GLUCOSE Routine 11/07/2019 7:45 AM EDT HEMOGRAM Routine 11/07/2019 1:13 AM EDT DIFFERENTIAL, AUTOMATED Routine 11/07/2019 1:13 AM EDT HC CBC,PLT & AUTO DIFF Routine 0 1:13 AM EDT HC VENIPUNCTURE Routine 11/07/2019 1:13 AM EDT POCT GLUCOSE Routine 11/06/2019 8:14 PM EDT POCT GLUCOSE Routine 11/06/2019 12:09 PM EDT POCT GLUCOSE Routine 11/06/2019 7:56 AM EDT HEMOGRAM Routine 11/06/2019 1:25 AM EDT DIFFERENTIAL, AUTOMATED Routine 11/06/2019 1:25 AM EDT HC CBC,PLT & AUTO DIFF Routine 0 1:25 AM EDT HC VENIPUNCTURE Routine 11/06/2019 1:25 AM EDT POCT GLUCOSE Routine 11/05/2019 8:28 PM EDT POCT GLUCOSE Routine 11/05/2019 6:58 PM EDT POCT GLUCOSE Routine 11/05/2019 6:18 PM EDT POCT GLUCOSE Routine 11/05/2019 12:02 PM EDT POCT GLUCOSE Routine 11/05/2019 8:[address] HEAD WO CONTRAST (GENERIC) Routine 11/05/2019 4:06 AM EDT HEMOGRAM Routine 11/05/2019 1:16 AM EDT DIFFERENTIAL, AUTOMATED Routine 11/05/2019 1:16 AM EDT HC CBC,PLT & AUTO DIFF Routine 0 1:16 AM EDT HC VENIPUNCTURE Routine 11/05/2019 1:16 AM EDT POCT GLUCOSE Routine 11/04/2019 9:00 PM EDT HC VENIPUNCTURE STAT 11/04/2019 7:19 PM EDT EKG 12-LEAD Routine 11/04/2019 7:16 PM EDT Subdural hemorrhage POCT GLUCOSE Routine 11/04/2019 6:22 PM EDT POCT GLUCOSE Routine 11/04/2019 4:30 PM EDT POCT GLUCOSE Routine 11/04/2019 12:15 PM EDT POCT GLUCOSE Routine 11/04/2019 7:[address] HEAD WO CONTRAST (GENERIC) Routine 11/04/2019 5:26 AM EDT HEMOGRAM Routine 11/04/2019 3:48 AM EDT DIFFERENTIAL, AUTOMATED Routine 11/04/2019 3:48 AM EDT HC CBC,PLT & AUTO DIFF Routine 0 3:48 AM EDT HC VENIPUNCTURE Routine 11/04/2019 3:48 AM EDT POCT GLUCOSE Routine 11/03/2019 11:53 PM EDT POCT GLUCOSE Routine 11/03/2019 6:34 PM EDT IR EMBOLIZATION MIDDLE MENINGEAL ARTERY UNILATERAL Routine 11/03/2019 5:16 PM EDT BLOOD GAS ARTERIAL POC Routine 0 3:04 PM EDT Perm Occlusion/Embolization , Percut, Steamtable Attendant Railroad ([id number]) 11/03/2019 1:53 PM EDT Left subdural hematoma POCT GLUCOSE Routine 11/03/2019 12:13 PM EDT POCT GLUCOSE Routine 11/03/2019 8:24 AM EDT HEMOGRAM Routine 11/03/2019 5:26 AM EDT DIFFERENTIAL, AUTOMATED Routine 11/03/2019 5:26 AM EDT HC CBC,PLT & AUTO DIFF Routine 0 5:26 AM EDT HC VENIPUNCTURE Routine 11/03/2019 5:26 AM EDT HC HEMOGRAM STAT 11/02/2019 11:03 PM EDT HC PARTIAL THROMBOPLASTIN TIME STAT 11/02/2019 11:03 PM EDT HC PROTHROMBIN TIME STAT 11/02/2019 1 1:[address] HEAD WO CONTRAST (GENERIC) STAT 11/02/2019 9:57 PM EDT POCT GLUCOSE Routine 11/02/2019 7:49 PM EDT POCT GLUCOSE Routine 11/02/2019 5:06 PM EDT POCT GLUCOSE Routine 11/02/2019 12:31 PM EDT POCT GLUCOSE Routine 11/02/2019 8:06 AM EDT HEMOGRAM Routine 11/02/2019 1:01 AM EDT DIFFERENTIAL, AUTOMATED Routine 11/02/2019 1:01 AM EDT HC CBC,PLT & AUTO DIFF Routine 0 1:01 AM EDT HC VENIPUNCTURE Routine 11/02/2019 1:01 AM EDT RAPID COVID-19 PCR (MH/APD/NLH) STAT 11/01/2019 11:17 PM EDT ABORH RECHECK STATUS STAT 11/01/2019 9:14 PM EDT HEMOGRAM STAT 11/01/2019 9:14 PM EDT DIFFERENTIAL, AUTOMATED STAT 11/01/2019 9:14 PM EDT GOLD TUBE HOLD STAT 11/01/2019 9:14 PM EDT ABO/RH TYPING STAT 11/01/2019 9:14 PM EDT HC PARTIAL THROMBOPLASTIN TIME STAT 11/01/2019 9:14 PM EDT HC PROTHROMBIN TIME STAT 11/01/2019 9 :14 PM EDT HC CBC,PLT & AUTO DIFF STAT 0 9:14 PM EDT ANTIBODY SCREEN STAT 11/01/2019 9:14 PM EDT HC ANTIBODY DETECTION,CAPTURE-R STAT 11/01/2019 9:14 PM EDT BASIC METABOLIC PANEL STAT 11/01/2019 9:14 PM EDT FILM LIBRARY STORAGE ONLY DX CHEST STAT 11/01/2019 8:28 PM EDT documented in this encounter Results * CT Head wo Contrast (Generic) (12/23/2019 12:00 PM EDT) Anatomical Region Laterality Modality Head Computed Tomogra phy Impressions 12/23/2019 12:15 PM EDT 1. ??Interval improvement in size and density of left-sided subdural hematoma with improved apej-tx-xwwtj midline shift. 2. 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 Thank you for letting us participate in the care of this patient. For questions regarding this report, please contact the number below. ? Electronically signed by: TALI Nava [facility] ([phone]), at 12/23/2019 12:15 PM Narrative 12/23/2019 12:15 PM EDT EXAMINATION: CT [...] cm. Mass effect has improved. Improvement of vyha-ca-udmur midline shift which is now minimal. The basilar cisterns remain patent. No acute intracranial hemorrhage, mass, hydrocephalus, or evidence of large acute infarction. Left-sided pedro pablo hole craniotomy changes are again noted. Procedure [...] 1.8 cm. Mass effect hasimproved. Improvement of yjud-ee-nsxrz midline shift which is now minimal. Thebasilar cisterns remain patent. No acute intracranial hemorrhage, mass,hydrocephalus, or evidence of large acute infarction. Left-sided pedro pablo hole craniotomychanges are again noted. IMPRESSION 1. Interval improvement in size and density of left-sided subduralhematoma with improved bumz-px-xhpyi midline shift. 2. 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 Thank you for letting us participate in the care of this patient. Forquestions regarding this report, please contact the number below. Electronically signed by: Alley Hart [facility] ([phone]),at 12/23/2019 12:15 PM Casey Singh MD IMG CT ORDERABLES * POCT Glucose (11/16/2019 4:08 PM EDT) Glucose, POC 108 65 - 199 mg/dL [facility] Comment: Supplemental ranges: <140 mg/dL before meals <180 mg/dL all other times of the day Blood specimen (specimen) 11/16/2019 4:08 PM EDT 11/16/2019 4:08 PM EDT Casey Singh MD POINT OF CARE TEST O RDERABLES Performing Organization Address [facility] Co de Phone Number [facility] [place] [phone] * POCT Glucose (11/16/2019 12:15 PM EDT) Glucose, POC 104 65 - 199 mg/dL [facility] Comment: Supplemental ranges: <140 mg/dL before meals <180 mg/dL all other times of the day Blood specimen (specimen) 11/16/2019 12:15 PM EDT 11/16/2019 12:15 PM EDT Casey Singh MD POINT OF CARE TEST O RDERABLES Performing Organization Address [facility]/ZIP Co de Phone Number [facility] [place] [address] * POCT Glucose (11/16/2019 7:48 AM EDT) Glucose, POC 109 65 - 199 mg/dL [facility] Comment: Supplemental ranges: <140 mg/dL before meals <180 mg/dL all other times of the day Blood specimen (specimen) 11/16/2019 7:48 AM EDT 11/16/2019 7:48 AM EDT Casey Singh MD POINT OF CARE TEST O RDERABLES Performing Organization Address [facility]/ZIP Co de Phone Number [facility] [place] [address] * POCT Glucose (11/15/2019 8:00 PM EDT) Glucose, POC 111 65 - 199 mg/dL [facility] Comment: Supplemental ranges: <140 mg/dL before meals <180 mg/dL all other times of the day Blood specimen (specimen) 11/15/2019 8:00 PM EDT 11/15/2019 8:00 PM EDT Casey Singh MD POINT OF CARE TEST O RDERABLES Performing Organization Address [facility] Co de Phone Number [facility] [place] [address] * Valproic Acid Level, Total (11/15/2019 4:31 PM EDT) Valproic Acid 43 mg/L [facility] Comment: Therapeutic Range: Anticonvulsant Therapy: ??50-100 mg/L Manic Episodes Associated with Bipolar Disorder: ??50-125 mg/L Blood specimen (specimen) 11/15/2019 4:31 PM EDT 11/15/2019 4:48 PM EDT Narrative Resulting Agency Comment Spec In Lab Casey Singh MD CHEMISTRY ORDERABLES Performing Organization Address [facility] Co de Phone Number [facility] [place] [address] * POCT Glucose (11/15/2019 4:09 PM EDT) Glucose, POC 114 65 - 199 mg/dL [facility] Comment: Supplemental ranges: <140 mg/dL before meals <180 mg/dL all other times of the day Blood specimen (specimen) 11/15/2019 4:09 PM EDT 11/15/2019 4:09 PM EDT Casey Singh MD POINT OF C[place] [address] * CT Head wo Contrast (Generic) (11/15/2019 3:21 PM EDT) Anatomical Region Laterality Modality Head Computed Tomogra phy Impressions 11/15/2019 3:43 PM EDT No significant interval change. Thank you for letting us participate in the care of this patient. For questions regarding this report, please contact the number below. ? Narrative 11/15/2019 3:43 PM EDT EXAMINATION: CT HEAD WO CONTRAST (GENERIC) CLINICAL HISTORY: Altered mental status. Pronator Drift, slurred speech TECHNIQUE: CT head performed without intravenous contrast administration. COMPARISON: None FINDINGS: Mixed density left frontal subdural hematoma is stable in size and density. Small amount of air within the collection is again seen in addition to a few flecks of bone, presumably related to the left-sided craniotomy pedro pablo holes. Local mass effect is stable with unchanged msgm-xh-imzbf midline shift of 4 mm. The basal cisterns remain patent. No new intracranial hemorrhage, mass, hydrocephalus, or evidence of large acute infarction. The osseous structures are stable. Embolization material is again seen in the region of the left transverse sinus. Procedure Note Alley Hart MD - 11/15/2019 EXAMINATION: CT HEAD WO CONTRAST (GENERIC) CLINICAL HISTORY: Altered mental status. Pronator Drift, slurred speech TECHNIQUE: CT head performed without intravenous contrast administration. COMPARISON: None FINDINGS: Mixed density left frontal subdural hematoma is stable in size anddensity. Small amount of air within the collection is again seen in addition to afew flecks of bone, presumably related to the left-sided craniotomy burrholes. Local mass effect is stable with unchanged pocm-px-eilpj midline shift of4 mm. The basal cisterns remain patent. No new intracranial hemorrhage, mass, hydrocephalus, or evidence of largeacute infarction. The osseous structures are stable. Embolization material is again seen in the region of the left transversesinus. IMPRESSION No significant interval change. Thank you for letting us participate in the care of this patient. Forquestions regarding this report, please contact the number below. Electronically signed by: Alley Hart [facility] ([phone]),at 11/15/2019 3:43 PM Casey Singh MD IMG CT ORDERABLES * POCT Glucose (11/15/2019 11:56 AM EDT) Glucose, POC 114 65 - 199 mg/dL [facility] Comment: Supplemental ranges: <140 mg/dL before meals <180 mg/dL all other times of the day Blood specimen (specimen) 11/15/2019 11:56 AM EDT 11/15/2019 11:56 AM EDT Casey Singh MD POINT OF CARE TEST O RDERABLES [facility] [place] [address] * POCT Glucose (11/15/2019 8:07 AM EDT) Glucose, POC 113 65 - 199 mg/dL [facility] Comment: Supplemental ranges: <140 mg/dL before meals <180 mg/dL all other times of the day Blood specimen (specimen) 11/15/2019 8:07 AM EDT 11/15/2019 8:07 AM EDT Casey Singh MD POINT OF CARE TEST O RDERABLES Performing Organization Address City/[facility]/ZIP Co de Phone Number [facility] [place] [address] * Differential, Automated (11/15/2019 1:36 AM EDT) Neutrophil % 57.7 % [facility] Neutrophil Absolute 3.41 1.70 - 6.10 x10(3)/[facility] Lymph % 25.8 % [facility] Lymphocytes Abs 1.5 0.9 - 3.2 x10(3)/[facility] Monocyte % 13.0 % [facility] Monocyte Abs 0.8 0.3 - 0.9 x10(3)/[facility] Eos % 2.0 % [facility] Eosinophils Abs 0.1 0.0 - 0.4 x10(3)/[facility] Basophil % 1.0 % [facility] Baso Absolute 0.1 0.0 - 0.1 x10(3)/[facility] Immature Gran % 0.50 % [facility] Comment: Immature granulocytes(IG's)percentage and absolute count will include metamyelocytes, myelocytes, and promyelocytes. Blood smears from CBCs yielding IG's will be scanned manually for concordance. If this scan disagrees with the automated IG or if promyelocytes are noted, a manual differential will be performed. Immature Gran Absolute 0.03 0.00 - 0.04 x10(3)/[facility] Blood specimen (specimen) 11/15/2019 1:36 AM EDT 11/15/2019 2:02 AM EDT Narrative Resulting Agency Comment Spec In Lab Tu Reyes MD HEMATOLOGY ORDERABLE S Performing Organization Address City/[facility]/ZIP Co de Phone Number [facility] [place] [address] * (ABNORMAL) Hemogram (11/15/2019 1:36 AM EDT) [facility] White Blood Cell 5.9 4.0 - 9.5 x10(3)/ L [facility] Red Blood Cell 3.82(L) 4.58 - 5.54 x10(6)/mc L [facility] Hemoglobin 11.8(L) 13.7 - 16.5 gm/dL [facility] Hematocrit 35.6(L) 40.5 - 48.5 % [facility] Mean Cell Volume 93.2(H) 82.9 - 93.1 fL [facility] Mean Cell Hemoglobin 30.9 27.5 - 32.1 pg [facility] Mean Cell Hemoglobin Concentration 33.1 32.0 - 35.7 gm/dL [facility] Platelet 235 145 - 357 x10(3)/[facility] RDW Standard Deviation 44.7 36.0 - 45.0 [facility] RDW coefficient of variation 13.0 11.4 - 13.8 % [facility] Mean Platelet Volume 10.4 7.6 - 12.9 [facility] NRBC% auto 0.0 % [facility] NRBC Absolute 0.000 0.000 - 0.000 x10(3)/[facility] Blood specimen (specimen) 11/15/2019 1:36 AM EDT 11/15/2019 2:02 AM EDT Narrative Resulting Agency Comment Spec In Lab Tu Reyes MD HEMATOLOGY ORDERABLE S [facility] [place] [address] * (ABNORMAL) Basic Metabolic Panel (non-fasting) (11/15/2019 1:36 AM EDT) [facility] Glucose 113 65 - 199 mg/dL [facility] Comment:Diabetes: >=200 mg/d L plus symptoms Blood Urea Nitrogen 9(L) 10 - 20 mg/dL [facility] Creatinine 0.92 0.80 - 1.50 mg/dL [facility] Sodium 138 135 - 145 mmol/L [facility] Potassium 4.2 3.5 - 5.0 mmol/L [facility] Comment: Please note: ??Patients with WBC >100,000 may have falsely elevated Potassium levels. ??For accurate Potassium quantification in these patients send serum separator tube (gold top) for subsequent determinations. ??Contact the Clinical Chemistry Laboratory if there are any questions. Chloride 105 98 - 107 mmol/L [facility] Carbon Dioxide 26 22 - 31 mmol/L [facility] Anion Gap 7 5 - 15 mmol/L [facility] Calcium 8.6 8.5 - 10.5 mg/dL [facility] Est Glomerular Filtration Rate 82 >=60 mL/min/1. 73 m?? [facility] Comment: The eGFR was calculated using the CKD-EPI equation. As with all creatinine based estimates of kidney function, eGFR values calculated with the CKD-EPI equation are not accurate in patients with acute kidney failure, extremes of body mass or the acutely ill. [email or web address]/[facility]ANnkf eGFR 95 >=60 mL/min/1. 73 m?? [facility] Comment: The eGFR was calculated using the CKD-EPI equation. As with all creatinine based estimates of kidney function, eGFR values calculated with the CKD-EPI equation are not accurate in patients with acute kidney failure, extremes of body mass or the acutely ill. [email or web address] Blood specimen (specimen) 11/15/2019 1:36 AM EDT 11/15/2019 2:02 AM EDT Narrative Resulting Agency Comment Spec In Lab Casey Singh MD CHEMISTRY ORDERABLES [facility] [facility] [place] [address] * Valproic Acid Level, Total (11/15/2019 1:36 AM EDT) Valproic Acid 47 mg/L [facility] Comment: Therapeutic Range: Anticonvulsant Therapy: ??50-100 mg/L Manic Episodes Associated with Bipolar Disorder: ??50-125 mg/L Blood specimen (specimen) 11/15/2019 1:36 AM EDT 11/15/2019 2:02 AM EDT Narrative Resulting Agency Comment Spec In Lab Casey Singh MD CHEMISTRY ORDERABLES Performing Organization Address City/[facility]/ZIP Co de Phone Number [facility] [place] [address] * POCT Glucose (11/14/2019 5:06 PM EDT) Glucose, POC 83 65 - 199 mg/dL [facility] Comment: Supplemental ranges: <140 mg/dL before meals <180 mg/dL all other times of the day Blood specimen (specimen) 11/14/2019 5:06 PM EDT 11/14/2019 5:06 PM EDT Casey Singh MD POINT OF CARE TEST O RDERAPAMELA Performing Organization Address [facility] Co de Phone Number [facility] [place] [address] * POCT Glucose (11/14/2019 3:15 PM EDT) Glucose, POC 100 65 - 199 mg/dL [facility] Comment: Supplemental ranges: <140 mg/dL before meals <180 mg/dL all other times of the day Blood specimen (specimen) 11/14/2019 3:15 PM EDT 11/14/2019 3:15 PM EDT Casey Singh MD POINT OF CARE TEST O LORI Performing Organization Address City/[facility]/ZIP Co de Phone Number [facility] [place] [address] * POCT Glucose (11/14/2019 1:59 PM EDT) Glucose, POC 90 65 - 199 mg/dL [facility] Comment: Supplemental ranges: <140 mg/dL before meals <180 mg/dL all other times of the day Blood specimen (specimen) 11/14/2019 1:59 PM EDT 11/14/2019 1:59 PM EDT Casey Singh MD POINT OF CARE TEST O BENJAMINERAPAMELA [facility] [place] [address] * IR Embolization Intracranial (11/14/2019 1:39 PM EDT) Anatomical Region Laterality Modality Head X-Ray Angiograph y Impressions 11/22/2019 4:10 PM EDT 1. 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 ??Gregory embolization of dural arteriovenous fistula with approximately 90% obliteration and return of normal flow in some cortical veins, which had been reversed. The residual fistula is supplied primarily via one remaining branch of the occipital artery. 3. ??Embolic material in the left external carotid artery distal to the occipital artery origin, likely related to microcatheter rupture.. No evidence of intracerebral emboli Preliminary report signed by: Amor Singletary at 11/21/2019 4:30 PM I have personally reviewed the image(s) and the resident's interpretation and agree with the findings, Hussain Christianson at 11/22/2019 4:10 PM Thank you for letting us participate in the care of this patient. For questions regarding this report, please contact the number below. ? 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 Cerebral angiogram. 2. Embolization of dural arteriovenous fistula with liquid embolic ANESTHESIA: General endotracheal anesthesia EBL: <50 ml CONTRAST: 120 mL Visipaque-320. RADIATION EXPOSURE: A-plane 642.6 mGy, B-plane ??815.1 mGy MATERIALS: Micropuncture set, 6 Fr Wayside sheath, 5 Fr Impress Vert 125 cm selective catheter, 4 Fr Tempo Vertebral 100 cm selective catheter, 5 Fr Envoy MPC 100 cm guide catheter, 6 Fr Envoy MPC Angled 90 cm guide catheter, 2.7 Fr Rogers 1.5 cm 165 cm microcatheter, 2.7 Fr Rogers 3 cm 165 cm microcatheter, 1.5 Fr Toombs 165 cm microcatheter.012 NT Synchro-10 200 cm microwire, .010 Asahi Chikai STR tip 200 cm microwire, .008 Hybrid STR 220 cm hydrophilic microwire, .035 J-tip 150 cm guidewire, .035 angle-tipped 150 cm hydrophilic guidewire, 6 Fr Angio-Seal VIP vascular closure device, Gregory 34 - 1 vial, Gregory 18 - 1 vial TECHNIQUE: The procedure and its risks were discussed with the patient and written informed consent obtained. The patient was brought to the angiography suite and placed under general anesthesia. The right groin was sterilely prepped and draped. A small amount of 1% lidocaine was applied at the planned puncture site. Using micropuncture set, the ??femoral artery was accessed and the ??sheath placed in the right femoral artery, flushed, and connected to a continuous heparinized saline infusion. The guide catheter was placed in the descending aorta, flushed, and connected to a heparinized saline infusion. This catheter was sequentially directed to the left internal carotid and left external carotid arteries and biplane cerebral angiography was performed each position. An Rogers microcatheter was directed to the left middle meningeal artery using the microwire. Hand injected biplane microcatheter angiogram was performed. The catheter was placed more distally in the parietal division of the left middle meningeal artery and hand injected biplane angiogram performed. From this position, Gregory was infused using standard protocol with continuous fluoroscopic monitoring. Infusion was stopped when antegrade flow stopped. Biplane angiography from the guide catheter was performed during the infusion. The microcatheter was removed. Biplane angiography was performed from the guide catheter in the external carotid artery. Nonocclusive embolic material at the guide catheter tip and within its distal luminal was pushed into the left external carotid artery and this guide catheter removed while aspiration was applied. The guide catheter was flushed carefully and placed in the descending aorta and reconnected to the continuous heparinized saline infusion. This catheter was again placed in the left common carotid artery and biplane angiogram performed. The catheter was then directed to the external carotid artery. A Toombs microcatheter was directed to the occipital artery using the microwire. Hand injected biplane microcatheter angiogram was performed. The catheter was placed more distally in the occipital artery and injected biplane angiogram performed. From this position, liquid embolic material was infused using standard protocol with continuous fluoroscopic monitoring. Infusion was stopped when reflux prevented further infusion. Biplane angiography from the guide catheter was performed during the infusion. The microcatheter was removed. Biplane angiography was performed from the guide catheter. Using multiple microcatheter and microwire combinations, selection of residual branches of the occipital artery supplying the fistula were attempted without success. The microcatheter was removed. The guide catheter was withdrawn to the left common carotid artery. Biplane cerebral angiography was performed. The guide catheter was removed. There were no immediate complications. The patient was transferred to the PACU in stable condition. FINDINGS: LEFT COMMON CAROTID ROADMAP: The carotid bifurcation appears normal. There is no stenosis. LEFT ??INTERNAL ??CAROTID ARTERY INJECTION: The intracranial left internal carotid artery and its major branches are of normal course and caliber. LEFT EXTERNAL CAROTID ARTERY INJECTION: There is rapid arteriovenous shunting from the fistula along the lateral aspect of the left occipital lobe. Arterial supply is primarily from the occipital artery, through numerous small branches to a cortical vein that drains cephalad to the superior sagittal sinus and to the left vein of Michael. Again noted is mild stenosis in the draining veins. LEFT MIDDLE MENINGEAL ARTERY INJECTION: There is arteriovenous shunting from parietal branches of the left middle meningeal artery. No changes collateral pathways to the internal carotid or vertebral arteries are evident. The shunting from this artery is largely washed out by the supply from the occipital artery and venous drainage is unchanged. LEFT External CAROTID ARTERY INJECTION (POST EMBOLIZATION #1): There is embolic material occluding the arterial branches of the frontal division of the middle meningeal artery that had supplied the fistula. There is persistent early venous drainage. The occipital artery branches that supply the fistula are otherwise unchanged. There is nonocclusive embolic material in the proximal left external carotid artery. LEFT COMMON CAROTID ARTERY INJECTION: There is occlusion of the distal external carotid artery by [place] cast. The occipital branch of the left external carotid artery remains open. There is persistent opacification of the dural fistula from the branches of the occipital artery. No remaining opacification of the fistula from the middle meningeal artery branches is present. Internal carotid artery branches are unchanged in appearance with no arterial occlusion or prolonged transit time.. LEFT OCCIPITAL ARTERY INJECTION: There is rapid opacification of the arteriovenous fistula from this site. No dangerous collateral to other branches is evident. Venous drainage pattern is unchanged. LEFT EXTERNAL CAROTID ARTERY INJECTION (POST EMBOLIZATION #2): There is embolic material across the site of the fistula extending into the proximal vein. The targeted occipital artery is occluded. However there is persistent supply to the arteriovenous fistula from another small more distal branch of the occipital artery. LEFT OCCIPITAL ARTERY INJECTION: There is rapid opacification of the arteriovenous fistula from the remaining occipital artery branch which appears to be the slightly more inferior branch from that which had just been embolized. There is return of antegrade flow in the more anterior of the veins which it previously drain the fistula. The enlarged draining vein remains which ramifies and extends cephalad to drain to the superior sagittal sinus. LEFT COMMON CAROTID ARTERY INJECTION (POST EMBOLIZATION #2): The residual fistula is supplied primarily via branches of the occipital artery. The left internal carotid artery and its branches are unchanged from preembolization images. 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 Cerebral angiogram. 2. Embolization of dural arteriovenous fistula with liquid embolic ANESTHESIA: General endotracheal anesthesia EBL: <50 ml CONTRAST: 120 mL Visipaque-320. RADIATION EXPOSURE: A-plane 642.6 mGy, B-plane 815.1 mGy MATERIALS: Micropuncture set, 6 Fr Wayside sheath, 5 Fr Impress Vert 125cm selective catheter, 4 Fr Tempo Vertebral 100 cm selective catheter, 5 FrEnvoy MPC 100 cm guide catheter, 6 Fr Envoy MPC Angled 90 cm guide catheter, 2.7Fr Rogers 1.5 cm 165 cm microcatheter, 2.7 Fr Rogers 3 cm 165 cmmicrocatheter, 1.5 Fr Toombs 165 cm microcatheter.012 NT Synchro-10 200 cm microwire,.010 Asahi Chikai STR tip 200 cm microwire, .008 Hybrid STR 220 cmhydrophilic microwire, .035 J-tip 150 cm guidewire, .035 angle-tipped 150 cmhydrophilic guidewire, 6 Fr Angio-Seal VIP vascular closure device, Gregory 34 - 1 vial,[place] 18 - 1 vial TECHNIQUE: The procedure and its risks were discussed with the patientand written informed consent obtained. The patient was brought to theangiography suite and placed under general anesthesia. The right groin was sterilelyprepped and draped. A small amount of 1% lidocaine was applied at the plannedpuncture site. Using micropuncture set, the femoral artery was accessed and thesheath placed in the right femoral artery, flushed, and connected to acontinuous heparinized saline infusion. The guide catheter was placed in the descending aorta, flushed, andconnected to a heparinized saline infusion. This catheter was sequentially directed tothe left internal carotid and left external carotid arteries and biplanecerebral angiography was performed each position. An Rogers microcatheter wasdirected to the left middle meningeal artery using the microwire. Hand injectedbiplane microcatheter angiogram was performed. The catheter was placed moredistally in the parietal division of the left middle meningeal artery and handinjected biplane angiogram performed. From this position, Gregory was infused using standard protocol withcontinuous fluoroscopic monitoring. Infusion was stopped when antegrade flowstopped. Biplane angiography from the guide catheter was performed during theinfusion. The microcatheter was removed. Biplane angiography was performed from theguide catheter in the external carotid artery. Nonocclusive embolic material atthe guide catheter tip and within its distal luminal was pushed into theleft external carotid artery and this guide catheter removed while aspirationwas applied. The guide catheter was flushed carefully and placed in thedescending aorta and reconnected to the continuous heparinized saline infusion.This catheter was again placed in the left common carotid artery and biplane angiogram performed. The catheter was then directed to the externalcarotid artery. A Toombs microcatheter was directed to the occipital arteryusing the microwire. Hand injected biplane microcatheter angiogram was performed.The catheter was placed more distally in the occipital artery and injectedbiplane angiogram performed. From this position, liquid embolic material was infused using standardprotocol with continuous fluoroscopic monitoring. Infusion was stopped whenreflux prevented further infusion. Biplane angiography from the guide catheterwas performed during the infusion. The microcatheter was removed. Biplane angiography was performed from the guide catheter. Using multiple microcatheter and microwire combinations, selection ofresidual branches of the occipital artery supplying the fistula were attemptedwithout success. The microcatheter was removed. The guide catheter was withdrawn to the left common carotid artery.Biplane cerebral angiography was performed. The guide catheter was removed. There were no immediate complications. The patient was transferred to [facility] in stable condition. FINDINGS: LEFT COMMON CAROTID ROADMAP: The carotid bifurcation appears normal. Thereis no stenosis. LEFT INTERNAL CAROTID ARTERY INJECTION: The intracranial left internalcarotid artery and its major branches are of normal course and caliber. LEFT EXTERNAL CAROTID ARTERY INJECTION: There is rapid arteriovenousshunting from the fistula along the lateral aspect of the left occipital lobe.Arterial supply is primarily from the occipital artery, through numerous smallbranches to a cortical vein that drains cephalad to the superior sagittal sinus andto the left vein of Michael. Again noted is mild stenosis in the drainingveins. LEFT MIDDLE MENINGEAL ARTERY INJECTION: There is arteriovenous shuntingfrom parietal branches of the left middle meningeal artery. No changescollateral pathways to the internal carotid or vertebral arteries are evident. Theshunting from this artery is largely washed out by the supply from the occipitalartery and venous drainage is unchanged. LEFT External CAROTID ARTERY INJECTION (POST EMBOLIZATION #1): There isembolic material occluding the arterial branches of the frontal division of themiddle meningeal artery that had supplied the fistula. There is persistent earlyvenous drainage. The occipital artery branches that supply the fistula areotherwise unchanged. There is nonocclusive embolic material in the proximal leftexternal carotid artery. LEFT COMMON CAROTID ARTERY INJECTION: There is occlusion of the distalexternal carotid artery by Gregory cast. The occipital branch of the left externalcarotid artery remains open. There is persistent opacification of the duralfistula from the branches of the occipital artery. No remaining opacification of thefistula from the middle meningeal artery branches is present. Internal carotidartery branches are unchanged in appearance with no arterial occlusion orprolonged transit time.. LEFT OCCIPITAL ARTERY INJECTION: There is rapid opacification of the arteriovenous fistula from this site. No dangerous collateral to otherbranches is evident. Venous drainage pattern is unchanged. LEFT EXTERNAL CAROTID ARTERY INJECTION (POST EMBOLIZATION #2): There isembolic material across the site of the fistula extending into the proximal vein.The targeted occipital artery is occluded. However there is persistent supplyto the arteriovenous fistula from another small more distal branch of theoccipital artery. LEFT OCCIPITAL ARTERY INJECTION: There is rapid opacification of the arteriovenous fistula from the remaining occipital artery branch whichappears to be the slightly more inferior branch from that which had just beenembolized. There is return of antegrade flow in the more anterior of the veins whichit previously drain the fistula. The enlarged draining vein remains whichramifies and extends cephalad to drain to the superior sagittal sinus. LEFT COMMON CAROTID ARTERY INJECTION (POST EMBOLIZATION #2): Theresidual fistula is supplied primarily via branches of the occipital artery. Theleft internal carotid artery and its branches are unchanged frompreembolization images. IMPRESSION 1. 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 [place] embolization of dural arteriovenous fistula with [id number]% obliteration and return of normal flow in some cortical veins, which hadbeen reversed. The residual fistula is supplied primarily via one remainingbranch of the occipital artery. 3. Embolic material in the left external carotid artery distal to theoccipital artery origin, likely related to microcatheter rupture.. No evidence of intracerebral emboli Preliminary report signed by: Amor Singletary at 11/21/2019 4:30 PM I have personally reviewed the image(s) and the resident's interpretationand agree with the findings, Hussain Christianson at 11/22/2019 4:10 PM Thank you for letting us participate in the care of this patient. Forquestions regarding this report, please contact the number below. Electronically signed by: Hussain Christianson [facility]([phone]), at 11/22/2019 4:10 PM Hussain Christianson MD IMG IR ORDERABLES * (ABNORMAL) BLOOD GAS 2 ARTERIAL (11/14/2019 8:43 AM EDT) pH, Arterial 7.45 7.35 - 7.45 [facility] PCO2, Arterial 35 35 - 45 mmHg [facility] PO2, Arterial 315(H) 85 - 104 mmHg [facility] Bicarbonate, Arterial 23.9 20.0 - 26.0 mmol/L [facility] Base Excess, Arterial -0.3 -3.0 - 3.0 mmol/L [facility] Hgb Blood Gas 14.0 13.7 - 16.5 gm/dL [facility] Oxyhemoglobin, Arterial 98.8(H) 94.0 - 97.0 % [facility] Carboxyhemoglob in, Arterial 0.4 % [facility] Comment: Nonsmokers: 0.5-1.5% COHB Smokers: Variable, but usually less than 10% Toxic: 20-30% COHB Lethal: Greater than 60% COHB Methemoglobin, Arterial 0.3 <=1.5 % [facility] Na Whole Blood 138 135 - 145 mmol/L [facility] K Whole Blood 3.8 3.5 - 5.0 mmol/L [facility] Comment: Please note: Patients with WBC >100,000 may have falsely elevated Potassium levels. Contact the Clinical Chemistry Laboratory if there are any questions. ICa Whole Blood 1.16 1.15 - 1.33 mmol/L [facility] Comment: Note: ??Total bilirubin higher than 20 mg/dL may lead to falsely low ionized calcium. CL Whole Blood 107 98 - 107 mmol/L [facility] Gluc Whole Bld 113 65 - 199 mg/dL [facility] Comment:Diabetes: >=200 mg/d L plus symptoms. Lactate WB 1.2 0.5 - 2.2 mmol/L [facility] FIO2 Art 60 % [facility] PF Ratio Art 525 [facility] Temp Art 36.3 Celsius [facility] Blood specimen (specimen) 11/14/2019 8:43 AM EDT 11/14/2019 8:43 AM EDT Casey Singh MD POINT OF CARE TEST O RDERABLES [facility] [place] [address] * Differential, Automated (11/14/2019 2:05 AM EDT) Neutrophil % 48.4 % [facility] Neutrophil Absolute 2.80 1.70 - 6.10 x10(3)/[facility] Lymph % 34.5 % [facility] Lymphocytes Abs 2.0 0.9 - 3.2 x10(3)/[facility] Monocyte % 11.1 % [facility] Monocyte Abs 0.6 0.3 - 0.9 x10(3)/[facility] Eos % 4.8 % [facility] Eosinophils Abs 0.3 0.0 - 0.4 x10(3)/[facility] Basophil % 1.0 % [facility] Baso Absolute 0.1 0.0 - 0.1 x10(3)/[facility] Immature Gran % 0.20 % [facility] Comment: Immature granulocytes(IG's)percentage and absolute count will include metamyelocytes, myelocytes, and promyelocytes. Blood smears from CBCs yielding IG's will be scanned manually for concordance. If this scan disagrees with the automated IG or if promyelocytes are noted, a manual differential will be performed. Immature Gran Absolute 0.01 0.00 - 0.04 x10(3)/mcL [facility] Blood specimen (specimen) 11/14/2019 2:05 AM EDT 11/14/2019 2:11 AM EDT Narrative Resulting Agency Comment Spec In Lab Tu Reyes MD HEMATOLOGY ORDERABLE S [facility] [place] [address] * (ABNORMAL) Hemogram (11/14/2019 2:05 AM EDT) White Blood Cell 5.8 4.0 - 9.5 x10(3)/[facility] Red Blood Cell 4.21(L) 4.58 - 5.54 x10(6)/[facility] Hemoglobin 12.9(L) 13.7 - 16.5 gm/dL [facility] Hematocrit 38.5(L) 40.5 - 48.5 % [facility] Mean Cell Volume 91.4 82.9 - 93.1 fL [facility] Mean Cell Hemoglobin 30.6 27.5 - 32.1 pg [facility] Mean Cell Hemoglobin Concentration 33.5 32.0 - 35.7 gm/dL [facility] Platelet 261 145 - 357 x10(3)/[facility] RDW Standard Deviation 41.9 36.0 - 45.0 [facility] RDW coefficient of variation 12.6 11.4 - 13.8 % [facility] Mean Platelet Volume 10.0 7.6 - 12.9 fL [facility] NRBC% auto 0.0 % [facility] NRBC Absolute 0.000 0.000 - 0.000 x10(3)/[facility] Blood specimen (specimen) 11/14/2019 2:05 AM EDT 11/14/2019 2:11 AM EDT Narrative Resulting Agency Comment Spec In Lab Tu Reyes MD HEMATOLOGY ORDERABLE S [facility] [place] [address] * Basic Metabolic Panel (non-fasting) (11/14/2019 2:05 AM EDT) Glucose 105 65 - 199 mg/dL [facility] Comment:Diabetes: >=200 mg/d L plus symptoms Blood Urea Nitrogen 14 10 - 20 mg/dL [facility] Creatinine 1.03 0.80 - 1.50 mg/dL [facility] Sodium 140 135 - 145 mmol/L [facility] Potassium 4.2 3.5 - 5.0 mmol/L [facility] Comment: Please note: ??Patients with WBC >100,000 may have falsely elevated Potassium levels. ??For accurate Potassium quantification in these patients send serum separator tube (gold top) for subsequent determinations. ??Contact the Clinical Chemistry Laboratory if there are any questions. Chloride 103 98 - 107 mmol/L [facility] Carbon Dioxide 25 22 - 31 mmol/L [facility] Anion Gap 12 5 - 15 mmol/L [facility] Calcium 9.2 8.5 - 10.5 mg/dL [facility] Est Glomerular Filtration Rate 72 >=60 mL/min/1. 73 m?? [facility] Comment: The eGFR was calculated using the CKD-EPI equation. As with all creatinine based estimates of kidney function, eGFR values calculated with the CKD-EPI equation are not accurate in patients with acute kidney failure, extremes of body mass or the acutely ill. http://[email or web address] eGFR 83 >=60 mL/min/1. 73 m?? [facility] Comment: The eGFR was calculated using the CKD-EPI equation. As with all creatinine based estimates of kidney function, eGFR values calculated with the CKD-EPI equation are not accurate in patients with acute kidney failure, extremes of body mass or the acutely ill. [email or web address] Blood specimen (specimen) 11/14/2019 2:05 AM EDT 11/14/2019 2:11 AM EDT Narrative Resulting Agency Comment Spec In Lab Casey Singh MD CHEMISTRY ORDERABLES Performing Organization Address City/[facility]/ZIP Co de Phone Number [facility] [place] [address] * Valproic Acid Level, Total (11/14/2019 2:05 AM EDT) Valproic Acid 79 mg/L [facility] Comment: Therapeutic Range: Anticonvulsant Therapy: ??50-100 mg/L Manic Episodes Associated with Bipolar Disorder: ??50-125 mg/L Blood specimen (specimen) 11/14/2019 2:05 AM EDT 11/14/2019 2:11 AM EDT Narrative Resulting Agency Comment Spec In Lab Casey Singh MD CHEMISTRY ORDERABLES Performing Organization Address [facility] Co de Phone Number [facility] [place] [address] * POCT Glucose (11/13/2019 8:56 PM EDT) Glucose, POC 133 65 - 199 mg/dL [facility] Comment: Supplemental ranges: <140 mg/dL before meals <180 mg/dL all other times of the day Blood specimen (specimen) 11/13/2019 8:56 PM EDT 11/13/2019 8:56 PM EDT Casey Singh MD POINT OF CARE TEST O RDERABLES Performing Organization Address [facility]/ZIP Co de Phone Number [facility] [place] [address] * POCT Glucose (11/13/2019 5:07 PM EDT) Glucose, POC 111 65 - 199 mg/dL [facility] Comment: Supplemental ranges: <140 mg/dL before meals <180 mg/dL all other times of the day Blood specimen (specimen) 11/13/2019 5:07 PM EDT 11/13/2019 5:07 PM EDT Casey Singh MD POINT OF CARE TEST O LORI Performing Organization Address City/[facility] Co de Phone Number [facility] [place] [address] * POCT Glucose (11/13/2019 11:56 AM EDT) Glucose, POC 127 65 - 199 mg/dL [facility] Comment: Supplemental ranges: <140 mg/dL before meals <180 mg/dL all other times of the day Blood specimen (specimen) 11/13/2019 11:56 AM EDT 11/13/2019 11:56 AM EDT Casey Singh MD POINT OF CARE TEST O LORI Performing Organization Address [facility] Co de Phone Number [facility] [place] [address] * POCT Glucose (11/13/2019 7:48 AM EDT) Glucose, POC 101 65 - 199 mg/dL [facility] Comment: Supplemental ranges: <140 mg/dL before meals <180 mg/dL all other times of the day Blood specimen (specimen) 11/13/2019 7:48 AM EDT 11/13/2019 7:48 AM EDT Casey Singh MD POINT OF CARE TEST O RDERAPAMELA Performing Organization Address [facility] Co de Phone Number [facility] [place] [address] * Differential, Automated (11/13/2019 2:03 AM EDT) Neutrophil % 49.7 % [facility] Neutrophil Absolute 3.15 1.70 - 6.10 x10(3)/[facility] Lymph % 33.8 % [facility] Lymphocytes Abs 2.1 0.9 - 3.2 x10(3)/[facility] Monocyte % 9.5 % [facility] Monocyte Abs 0.6 0.3 - 0.9 x10(3)/[facility] Eos % 5.8 % [facility] Eosinophils Abs 0.4 0.0 - 0.4 x10(3)/[facility] Basophil % 0.9 % [facility] Baso Absolute 0.1 0.0 - 0.1 x10(3)/[facility] Immature Gran % 0.30 % [facility] Comment: Immature granulocytes(IG's)percentage and absolute count will include metamyelocytes, myelocytes, and promyelocytes. Blood smears from CBCs yielding IG's will be scanned manually for concordance. If this scan disagrees with the automated IG or if promyelocytes are noted, a manual differential will be performed. Immature Gran Absolute 0.02 0.00 - 0.04 x10(3)/[facility] Blood specimen (specimen) 11/13/2019 2:03 AM EDT 11/13/2019 2:15 AM EDT Narrative Resulting Agency Comment Spec In Lab Tu Reyes MD HEMATOLOGY ORDERABLE S [facility] [place] [address] * (ABNORMAL) Hemogram (11/13/2019 2:03 AM EDT) White Blood Cell 6.3 4.0 - 9.5 x10(3)/ L [facility] Red Blood Cell 4.26(L) 4.58 - 5.54 x10(6)/ L [facility] Hemoglobin 12.9(L) 13.7 - 16.5 gm/dL [facility] Hematocrit 39.1(L) 40.5 - 48.5 % [facility] Mean Cell Volume 91.8 82.9 - 93.1 fL [facility] Mean Cell Hemoglobin 30.3 27.5 - 32.1 pg [facility] Mean Cell Hemoglobin Concentration 33.0 32.0 - 35.7 gm/dL [facility] Platelet 250 145 - 357 x10(3)/mc L [facility] RDW Standard Deviation 43.2 36.0 - 45.0 [facility] RDW coefficient of variation 12.8 11.4 - 13.8 % [facility] Mean Platelet Volume 10.2 7.6 - 12.9 [facility] NRBC% auto 0.0 % [facility] NRBC Absolute 0.000 0.000 - 0.000 x10(3)/mc L [facility] Blood specimen (specimen) 11/13/2019 2:03 AM EDT 11/13/2019 2:15 AM EDT Narrative Resulting Agency Comment Spec In Lab Tu Reyes MD HEMATOLOGY ORDERABLE S [facility] [place] [address] * Basic Metabolic Panel (non-fasting) (11/13/2019 2:03 AM EDT) Glucose 104 65 - 199 mg/dL [facility] Comment:Diabetes: >=200 mg/d L plus symptoms Blood Urea Nitrogen 15 10 - 20 mg/dL [facility] Creatinine 0.90 0.80 - 1.50 mg/dL [facility] Sodium 137 135 - 145 mmol/L [facility] Potassium 4.1 3.5 - 5.0 mmol/L [facility] Comment: Please note: ??Patients with WBC >100,000 may have falsely elevated Potassium levels. ??For accurate Potassium quantification in these patients send serum separator tube (gold top) for subsequent determinations. ??Contact the Clinical Chemistry Laboratory if there are any questions. Chloride 103 98 - 107 mmol/L [facility] Carbon Dioxide 24 22 - 31 mmol/L [facility] Anion Gap 10 5 - 15 mmol/L [facility] Calcium 9.1 8.5 - 10.5 mg/dL [facility] Est Glomerular Filtration Rate 84 >=60 mL/min/1. 73 m?? [facility] Comment: The eGFR was calculated using the CKD-EPI equation. As with all creatinine based estimates of kidney function, eGFR values calculated with the CKD-EPI equation are not accurate in patients with acute kidney failure, extremes of body mass or the acutely ill. http://[employer]/[facility] eGFR 98 >=60 mL/min/1. 73 m?? [facility] Comment: The eGFR was calculated using the CKD-EPI equation. As with all creatinine based estimates of kidney function, eGFR values calculated with the CKD-EPI equation are not accurate in patients with acute kidney failure, extremes of body mass or the acutely ill. [email or web address] Blood specimen (specimen) 11/13/2019 2:03 AM EDT 11/13/2019 2:15 AM EDT Narrative Resulting Agency Comment Spec In Lab Casey Singh MD CHEMISTRY ORDERABLES [facility] [place] [address] * Valproic Acid Level, Total (11/13/2019 2:03 AM EDT) Valproic Acid 55 mg/L [facility] Comment: Therapeutic Range: Anticonvulsant Therapy: ??50-100 mg/L Manic Episodes Associated with Bipolar Disorder: ??50-125 mg/L Blood specimen (specimen) 11/13/2019 2:03 AM EDT 11/13/2019 2:15 AM EDT Narrative Resulting Agency Comment Spec In Lab Casey Singh MD CHEMISTRY ORDERABLES Performing Organization Address [facility]/ZIP Co de Phone Number [facility] [place] [address] * POCT Glucose (11/12/2019 8:32 PM EDT) Glucose, POC 121 65 - 199 mg/dL [facility] Comment: Supplemental ranges: <140 mg/dL before meals <180 mg/dL all other times of the day Blood specimen (specimen) 11/12/2019 8:32 PM EDT 11/12/2019 8:32 PM EDT Casey Singh MD POINT OF CARE TEST O RDERABLES Performing Organization Address [facility]/ZIP Co de Phone Number [facility] [place] [address] * POCT Glucose (11/12/2019 6:14 PM EDT) Glucose, POC 131 65 - 199 mg/dL [facility] Comment: Supplemental ranges: <140 mg/dL before meals <180 mg/dL all other times of the day Blood specimen (specimen) 11/12/2019 6:14 PM EDT 11/12/2019 6:14 PM EDT Casey Singh MD POINT OF CARE TEST O RDERABLES Performing Organization Address [facility]/ZIP Co de Phone Number [facility] [place] [address] * POCT Glucose (11/12/2019 12:02 PM EDT) Glucose, POC 130 65 - 199 mg/dL [facility] Comment: Supplemental ranges: <140 mg/dL before meals <180 mg/dL all other times of the day Blood specimen (specimen) 11/12/2019 12:02 PM EDT 11/12/2019 12:02 PM EDT Casey Singh MD POINT OF CARE TEST O LORI [facility] [place] [address] * POCT Glucose (11/12/2019 7:29 AM EDT) Glucose, POC 123 65 - 199 mg/dL [facility] Comment: Supplemental ranges: <140 mg/dL before meals <180 mg/dL all other times of the day Blood specimen (specimen) 11/12/2019 7:29 AM EDT 11/12/2019 7:29 AM EDT Casey Singh MD POINT OF CARE TEST O LORI Performing Organization Address City/[facility]/ZIP Co de Phone Number [facility] [place] [address] * (ABNORMAL) Urinalysis with reflex Culture (11/12/2019 2:11 AM EDT) Pathologist [facility] Glucose, Urine Dipstick Negative Negative mg/dL [facility] Protein, Urine Dipstick Negative Negative mg/dL [facility] Bilirubin, Urine Dipstick Negative Negative mg/dL [facility] Comment: Clinical correlation required for positive Urine Bilirubin results as false positive may occur with some drugs and drug related products. If a false positive is suspected a serum total bilirubin should be considered if clinically indicated. Urobilinogen, Urine Dipstick Normal Normal mg/dL [facility] pH, Urn (dipstick) 6.5 5.0 - 8.0 [facility] Blood, Urine Dipstick Negative Negative mg/dL [facility] Ketone, Urine Dipstick Trace(A) Negative mg/dL [facility] Nitrite, Urine Dipstick Negative Negative [facility] Leukocytes, Urine Dipstick Negative Negative [facility] Appearance, Urine Dipstick Clear Clear [facility] Specific Andrews Urine Automated 1.019 1.006 - 1.030 [facility] Color, Urine Dipstick Yellow Yellow [facility] Reflex to Culture No [facility] Urine specimen (specimen) 11/12/2019 2:11 AM EDT 11/12/2019 2:27 AM EDT Narrative Resulting Agency Comment Spec In Lab Casey Singh MD URINE ORDERABLES [facility] [place] [address] * Differential, Automated (11/12/2019 1:33 AM EDT) Neutrophil % 56.2 % [facility] Neutrophil Absolute 3.59 1.70 - 6.10 x10(3)/[facility] Lymph % 29.4 % [facility] Lymphocytes Abs 1.9 0.9 - 3.2 x10(3)/[facility] Monocyte % 10.5 % [facility] Monocyte Abs 0.7 0.3 - 0.9 x10(3)/[facility] Eos % 2.7 % [facility] Eosinophils Abs 0.2 0.0 - 0.4 x10(3)/[facility] Basophil % 0.9 % [facility] Baso Absolute 0.1 0.0 - 0.1 x10(3)/[facility] Immature Gran % 0.30 % [facility] Comment: Immature granulocytes(IG's)percentage and absolute count will include metamyelocytes, myelocytes, and promyelocytes. Blood smears from CBCs yielding IG's will be scanned manually for concordance. If this scan disagrees with the automated IG or if promyelocytes are noted, a manual differential will be performed. Immature Gran Absolute 0.02 0.00 - 0.04 x10(3)/[facility] Blood specimen (specimen) 11/12/2019 1:33 AM EDT 11/12/2019 1:49 AM EDT Narrative Resulting Agency Comment Spec In Lab Tu Reyes MD HEMATOLOGY ORDERABLE S [facility] [place] [address] * (ABNORMAL) Hemogram (11/12/2019 1:33 AM EDT) White Blood Cell 6.4 4.0 - 9.5 x10(3)/mc L [facility] Red Blood Cell 4.19(L) 4.58 - 5.54 x10(6)/mc L [facility] Hemoglobin 12.9(L) 13.7 - 16.5 gm/dL [facility] Hematocrit 39.3(L) 40.5 - 48.5 % [facility] Mean Cell Volume 93.8(H) 82.9 - 93.1 [facility] Mean Cell Hemoglobin 30.8 27.5 - 32.1 pg [facility] Mean Cell Hemoglobin Concentration 32.8 32.0 - 35.7 gm/dL [facility] Platelet 219 145 - 357 x10(3)/mc L [facility] RDW Standard Deviation 44.3 36.0 - 45.0 [facility] RDW coefficient of variation 13.0 11.4 - 13.8 % [facility] Mean Platelet Volume 9.9 7.6 - 12.9 [facility] NRBC% auto 0.0 % [facility] NRBC Absolute 0.000 0.000 - 0.000 x10(3)/mc L [facility] Blood specimen (specimen) 11/12/2019 1:33 AM EDT 11/12/2019 1:49 AM EDT Narrative Resulting Agency Comment Spec In Lab Tu Reyes MD HEMATOLOGY ORDERABLE S [facility] [place] [address] * Basic Metabolic Panel (non-fasting) (11/12/2019 1:33 AM EDT) Glucose 134 65 - 199 mg/dL [facility] Comment:Diabetes: >=200 mg/d L plus symptoms Blood Urea Nitrogen 11 10 - 20 mg/dL [facility] Creatinine 0.98 0.80 - 1.50 mg/dL [facility] Sodium 139 135 - 145 mmol/L [facility] Potassium 4.1 3.5 - 5.0 mmol/L [facility] Comment: Please note: ??Patients with WBC >100,000 may have falsely elevated Potassium levels. ??For accurate Potassium quantification in these patients send serum separator tube (gold top) for subsequent determinations. ??Contact the Clinical Chemistry Laboratory if there are any questions. Chloride 102 98 - 107 mmol/L [facility] Carbon Dioxide 25 22 - 31 mmol/L [facility] Anion Gap 12 5 - 15 mmol/L [facility] Calcium 9.2 8.5 - 10.5 mg/dL [facility] Est Glomerular Filtration Rate 76 >=60 mL/min/1. 73 m?? [facility] Comment: The eGFR was calculated using the CKD-EPI equation. As with all creatinine based estimates of kidney function, eGFR values calculated with the CKD-EPI equation are not accurate in patients with acute kidney failure, extremes of body mass or the acutely ill. http://[employer]/[facility] eGFR 88 >=60 mL/min/1. 73 m?? [facility] Comment: The eGFR was calculated using the CKD-EPI equation. As with all creatinine based estimates of kidney function, eGFR values calculated with the CKD-EPI equation are not accurate in patients with acute kidney failure, extremes of body mass or the acutely ill. http://[email or web address]/DHMCnkf Blood specimen (specimen) 11/12/2019 1:33 AM EDT 11/12/2019 1:49 AM EDT Narrative Resulting Agency Comment Spec In Lab Casey Singh MD CHEMISTRY ORDERABLES Performing Organization Address [facility] Co de Phone Number [facility] [place] [address] * Valproic Acid Level, Total (11/12/2019 1:33 AM EDT) Valproic Acid 22 mg/L [facility] Comment: Therapeutic Range: Anticonvulsant Therapy: ??50-100 mg/L Manic Episodes Associated with Bipolar Disorder: ??50-125 mg/L Blood specimen (specimen) 11/12/2019 1:33 AM EDT 11/12/2019 1:49 AM EDT Narrative Resulting Agency Comment Spec In Lab Casey Singh MD CHEMISTRY ORDERABLES Performing Organization Address [facility] Co de Phone Number [facility] [place] [address] * Hepatic Function Panel (11/12/2019 1:33 AM EDT) Protein, Total 6.3 6.1 - 8.0 gm/dL [facility] Albumin 3.6 3.2 - 5.2 gm/dL [facility] Aspartate Aminotransferase 21 0 - 39 unit/L [facility] Alanine Aminotransferase 18 0 - 55 unit/L [facility] Alkaline Phosphatase 48 40 - 130 unit/L [facility] Bilirubin, Total 0.5 0.2 - 1.3 mg/dL [facility] Bilirubin, Direct 0.1 0.0 - 0.3 mg/dL [facility] Blood specimen (specimen) 11/12/2019 1:33 AM EDT 11/12/2019 1:49 AM EDT Narrative Resulting Agency Comment Spec In Lab Casey Singh MD CHEMISTRY ORDERABLES Performing Organization Address [facility] Co de Phone Number [facility] [place] [address] * (ABNORMAL) Ammonia (11/12/2019 1:33 AM EDT) Ammonia 12(L) 16 - 60 mcmol/L [facility] Blood specimen (specimen) 11/12/2019 1:33 AM EDT 11/12/2019 1:45 AM EDT Narrative Resulting Agency Comment Spec In Lab Casey Singh MD CHEMISTRY ORDERABLES [facility] [address] [place] [address] * CT Head wo Contrast (Generic) (11/11/2019 5:52 PM EDT) Anatomical Region Laterality Modality Head Computed Tomogra phy Impressions 11/11/2019 5:59 PM EDT Expected evolution of the left subdural collection with mild decrease in mass effect. Thank you for letting us participate in the care of this patient. For questions regarding this report, please contact the number below. ? Narrative 11/11/2019 5:59 PM EDT EXAMINATION: CT HEAD WO CONTRAST (GENERIC) CLINICAL HISTORY: Subdural hematoma change in exam TECHNIQUE: CT head performed without intravenous contrast administration. COMPARISON: CT head 11/09/2019 FINDINGS: Mixed attenuation left subdural collection has decreased in size now measuring 13 mm in the coronal plane. Minimal decrease in rightward midline shift. Cerebellar tonsils are normal in position. Left-sided craniotomy is unchanged. No new sites of hemorrhage.. Procedure Note Neida Pete MD - 11/11/2019 EXAMINATION: CT HEAD WO CONTRAST (GENERIC) CLINICAL HISTORY: Subdural hematoma change in exam TECHNIQUE: CT head performed without intravenous contrast administration. COMPARISON: CT head 11/09/2019 FINDINGS: Mixed attenuation left subdural collection has decreased in size nowmeasuring 13 mm in the coronal plane. Minimal decrease in rightward midline shift. Cerebellar tonsils are normal in position. Left-sided craniotomy isunchanged. No new sites of hemorrhage.. IMPRESSION Expected evolution of the left subdural collection with mild decrease inmass effect. Thank you for letting us participate in the care of this patient. Forquestions regarding this report, please contact the number below. Casey Singh MD IMG CT ORDERABLES * POCT Glucose (11/11/2019 5:06 PM EDT) Glucose, POC 93 65 - 199 mg/dL [facility] Comment: Supplemental ranges: <140 mg/dL before meals <180 mg/dL all other times of the day Blood specimen (specimen) 11/11/2019 5:06 PM EDT 11/11/2019 5:06 PM EDT Casey Singh MD POINT OF CARE TEST Sandi SANDOVAL Performing Organization Address City/State/[facility] Co de Phone Number [facility] [place] [address] * POCT Glucose (11/11/2019 11:44 AM EDT) Glucose, POC 178 65 - 199 mg/dL [facility] Comment: Supplemental ranges: <140 mg/dL before meals <180 mg/dL all other times of the day Blood specimen (specimen) 11/11/2019 11:44 AM EDT 11/11/2019 11:44 AM EDT Casey Singh MD POINT OF CARE TEST O RDERABLES [facility] [place] [address] * POCT Glucose (11/11/2019 8:49 AM EDT) Glucose, POC 139 65 - 199 mg/dL [facility] Comment: Supplemental ranges: <140 mg/dL before meals <180 mg/dL all other times of the day Blood specimen (specimen) 11/11/2019 8:49 AM EDT 11/11/2019 8:49 AM EDT Casey Singh MD POINT OF CARE TEST O RDERABLES Performing Organization Address City/[facility]/ZIP Co de Phone Number [facility] [place] [address] * Differential, Automated (11/11/2019 2:07 AM EDT) Pathologist [facility] Neutrophil % 63.6 % [facility] Neutrophil Absolute 4.64 1.70 - 6.10 x10(3)/[facility] Lymph % 21.8 % [facility] Lymphocytes Abs 1.6 0.9 - 3.2 x10(3)/[facility] Monocyte % 9.6 % [facility] Monocyte Abs 0.7 0.3 - 0.9 x10(3)/[facility] Eos % 3.6 % [facility] Eosinophils Abs 0.3 0.0 - 0.4 x10(3)/[facility] LABORATORY Basophil % 1.1 % [facility] Baso Absolute 0.1 0.0 - 0.1 x10(3)/[facility] LABORATORY Immature Gran % 0.30 % [facility] Comment: Immature granulocytes(IG's)percentage and absolute count will include metamyelocytes, myelocytes, and promyelocytes. Blood smears from CBCs yielding IG's will be scanned manually for concordance. If this scan disagrees with the automated IG or if promyelocytes are noted, a manual differential will be performed. Immature Gran Absolute 0.02 0.00 - 0.04 x10(3)/mcL [facility] LABORATORY Blood specimen (specimen) 11/11/2019 2:07 AM EDT 11/11/2019 2:16 AM EDT Narrative Resulting Agency Comment Spec In Lab Tu Reyes MD HEMATOLOGY ORDERABLE S [facility] [place] [address] * (ABNORMAL) Hemogram (11/11/2019 2:07 AM EDT) White Blood Cell 7.3 4.0 - 9.5 x10(3)/[facility] LABORATORY Red Blood Cell 4.25(L) 4.58 - 5.54 x10(6)/[facility] LABORATORY Hemoglobin 13.0(L) 13.7 - 16.5 gm/dL [facility]ORY Hematocrit 40.3(L) 40.5 - 48.5 % [facility] Mean Cell Volume 94.8(H) 82.9 - 93.1 [facility] LABORATORY Mean Cell Hemoglobin 30.6 27.5 - 32.1 pg [facility] Mean Cell Hemoglobin Concentration 32.3 32.0 - 35.7 gm/dL [facility] Platelet 228 145 - 357 x10(3)/[facility] LABORATORY RDW Standard Deviation 44.6 36.0 - 45.0 [facility] LABORATORY RDW coefficient of variation 13.0 11.4 - 13.8 % [facility] LABOR[facility] Mean Platelet Volume 10.1 7.6 - 12.9 [facility] LABORATORY NRBC% auto 0.0 % [facility] NRBC Absolute 0.000 0.000 - 0.000 x10(3)/[facility] LABORATORY Blood specimen (specimen) 11/11/2019 2:07 AM EDT 11/11/2019 2:16 AM EDT Narrative Resulting Agency Comment Spec In Lab Tu Reyes MD HEMATOLOGY ORDERABLE S [facility] [place] [place] [address] * Basic Metabolic Panel (non-fasting) (11/11/2019 2:07 AM EDT) Glucose 150 65 - 199 mg/dL [facility] Comment:Diabetes: >=200 mg/d L plus symptoms Blood Urea Nitrogen 12 10 - 20 mg/dL [facility] Creatinine 1.17 0.80 - 1.50 mg/dL [facility] Sodium 141 135 - 145 mmol/L [facility] Potassium 4.6 3.5 - 5.0 mmol/L [facility] Comment: Please note: ??Patients with WBC >100,000 may have falsely elevated Potassium levels. ??For accurate Potassium quantification in these patients send serum separator tube (gold top) for subsequent determinations. ??Contact the Clinical Chemistry Laboratory if there are any questions. Chloride 102 98 - 107 mmol/L [facility] Carbon Dioxide 29 22 - 31 mmol/L [facility] Anion Gap 10 5 - 15 mmol/L [facility] Calcium 8.9 8.5 - 10.5 mg/dL [facility] Est Glomerular Filtration Rate 61 >=60 mL/min/1. 73 m?? [facility] Comment: The eGFR was calculated using the CKD-EPI equation. As with all creatinine based estimates of kidney function, eGFR values calculated with the CKD-EPI equation are not accurate in patients with acute kidney failure, extremes of body mass or the acutely ill. http://[email or web address] eGFR 71 >=60 mL/min/1. 73 m?? [facility]ORY Comment: The eGFR was calculated using the CKD-EPI equation. As with all creatinine based estimates of kidney function, eGFR values calculated with the CKD-EPI equation are not accurate in patients with acute kidney failure, extremes of body mass or the acutely ill. [email or web address] Blood specimen (specimen) 11/11/2019 2:07 AM EDT 11/11/2019 2:16 AM EDT Narrative Resulting Agency Comment Spec In Lab Casey Singh MD CHEMISTRY ORDERABLES Performing Organization Address City/[facility]/ZIP Co de Phone Number [facility] [place] [address] * POCT Glucose (11/10/2019 10:12 PM EDT) Glucose, POC 161 65 - 199 mg/dL [facility] Comment: Supplemental ranges: <140 mg/dL before meals <180 mg/dL all other times of the day Blood specimen (specimen) 11/10/2019 10:12 PM EDT 11/10/2019 10:12 PM EDT Casey Singh MD POINT OF CARE TEST O RDERAPAMELA Performing Organization Address [facility] Co de Phone Number [facility] [place] [address] * POCT Glucose (11/10/2019 5:04 PM EDT) Glucose, POC 100 65 - 199 mg/dL [facility] Comment: Supplemental ranges: <140 mg/dL before meals <180 mg/dL all other times of the day Blood specimen (specimen) 11/10/2019 5:04 PM EDT 11/10/2019 5:04 PM EDT Casey Singh MD POINT OF CARE TEST O RDERAPAMELA Performing Organization Address City/[facility]/ZIP Co de Phone Number [facility] [place] [address] * POCT Glucose (11/10/2019 2:31 PM EDT) Glucose, POC 93 65 - 199 mg/dL [facility] Comment: Supplemental ranges: <140 mg/dL before meals <180 mg/dL all other times of the day Blood specimen (specimen) 11/10/2019 2:31 PM EDT 11/10/2019 2:31 PM EDT Casey Singh MD POINT OF CARE TEST O LORI [facility] [place] [address] * POCT Glucose (11/10/2019 11:30 AM EDT) Glucose, POC 93 65 - 199 mg/dL [facility] Comment: Supplemental ranges: <140 mg/dL before meals <180 mg/dL all other times of the day Blood specimen (specimen) 11/10/2019 11:30 AM EDT 11/10/2019 11:30 AM EDT Casey Singh MD POINT OF CARE TEST O LORI Performing Organization Address [facility]/ZIP Co de Phone Number [facility] [place] [address] * POCT Glucose (11/10/2019 10:59 AM EDT) Glucose, POC 105 65 - 199 mg/dL [facility] Comment: Supplemental ranges: <140 mg/dL before meals <180 mg/dL all other times of the day Blood specimen (specimen) 11/10/2019 10:59 AM EDT 11/10/2019 10:59 AM EDT Casey Singh MD POINT OF CARE TEST O LORI Performing Organization Address City/[facility]/ZIP Co de Phone Number [facility] [place] [address] * POCT Glucose (11/10/2019 8:12 AM EDT) Glucose, POC 139 65 - 199 mg/dL [facility] Comment: Supplemental ranges: <140 mg/dL before meals <180 mg/dL all other times of the day Blood specimen (specimen) 11/10/2019 8:12 AM EDT 11/10/2019 8:12 AM EDT Casey Singh MD POINT OF CARE TEST O RDERABLES [facility] [place] [address] * Differential, Automated (11/10/2019 1:27 AM EDT) Neutrophil % 54.6 % [facility] LABORATORY Neutrophil Absolute 3.07 1.70 - 6.10 x10(3)/[facility] LABORATORY Lymph % 28.6 % [facility] LABORATORY Lymphocytes Abs 1.6 0.9 - 3.2 x10(3)/[facility] LABORATORY Monocyte % 10.0 % [facility] Monocyte Abs 0.6 0.3 - 0.9 x10(3)/[facility] LABORATORY Eos % 5.0 % [facility] LABORATORY Eosinophils Abs 0.3 0.0 - 0.4 x10(3)/[facility] LABORATORY Basophil % 1.6 % [facility] Baso Absolute 0.1 0.0 - 0.1 x10(3)/[facility] LABORATORY Immature Gran % 0.20 % [facility] Comment: Immature granulocytes(IG's)percentage and absolute count will include metamyelocytes, myelocytes, and promyelocytes. Blood smears from CBCs yielding IG's will be scanned manually for concordance. If this scan disagrees with the automated IG or if promyelocytes are noted, a manual differential will be performed. Immature Gran Absolute 0.01 0.00 - 0.04 x10(3)/[facility] LABORATORY Blood specimen (specimen) 11/10/2019 1:27 AM EDT 11/10/2019 1:41 AM EDT Narrative Resulting Agency Comment Spec In Lab Maty Lin SPECIMEN TECHNICIAN HEMATOLOGY ORDERABLE S Performing Organization Address City/[facility]/ZIP Co de Phone Number [facility] [place] [address] * (ABNORMAL) Hemogram (11/10/2019 1:27 AM EDT) White Blood Cell 5.6 4.0 - 9.5 x10(3)/mc L [facility] LABOR[facility]ORY Red Blood Cell 4.51(L) 4.58 - 5.54 x10(6)/mc L [facility]ORY Hemoglobin 13.6(L) 13.7 - 16.5 gm/dL [facility] Hematocrit 41.6 40.5 - 48.5 % [facility] Mean Cell Volume 92.2 82.9 - 93.1 fL [facility] Mean Cell Hemoglobin 30.2 27.5 - 32.1 pg [facility] Mean Cell Hemoglobin Concentration 32.7 32.0 - 35.7 gm/dL [facility] Platelet 232 145 - 357 x10(3)/mc L [facility]ORY RDW Standard Deviation 43.6 36.0 - 45.0 [facility] LABORATORY RDW coefficient of variation 12.8 11.4 - 13.8 % [facility] Mean Platelet Volume 10.2 7.6 - 12.9 [facility] LABORATORY NRBC% auto 0.0 % [facility] NRBC Absolute 0.000 0.000 - 0.000 x10(3)/mc L [facility]OR[facility]ORY Blood specimen (specimen) 11/10/2019 1:27 AM EDT 11/10/2019 1:41 AM EDT Narrative Resulting Agency Comment Spec In Lab Maty Mcfadden SPECIMEN TECHNICIAN HEMATOLOGY ORDERABLE S Performing Organization Address City/[facility]/ZIP Co de Phone Number [facility] [place] [address] * Basic Metabolic Panel (non-fasting) (11/10/2019 1:27 AM EDT) Glucose 121 65 - 199 mg/dL [facility] Comment:Diabetes: >=200 mg/d L plus symptoms Blood Urea Nitrogen 13 10 - 20 mg/dL [facility] Creatinine 0.97 0.80 - 1.50 mg/dL [facility] Sodium 140 135 - 145 mmol/L [facility] Potassium 3.9 3.5 - 5.0 mmol/L [facility] Comment: Please note: ??Patients with WBC >100,000 may have falsely elevated Potassium levels. ??For accurate Potassium quantification in these patients send serum separator tube (gold top) for subsequent determinations. ??Contact the Clinical Chemistry Laboratory if there are any questions. Chloride 103 98 - 107 mmol/L [facility] Carbon Dioxide 27 22 - 31 mmol/L [facility] Anion Gap 10 5 - 15 mmol/L [facility] Calcium 9.2 8.5 - 10.5 mg/dL [facility] Est Glomerular Filtration Rate 77 >=60 mL/min/1. 73 m?? [facility] Comment: The eGFR was calculated using the CKD-EPI equation. As with all creatinine based estimates of kidney function, eGFR values calculated with the CKD-EPI equation are not accurate in patients with acute kidney failure, extremes of body mass or the acutely ill. http://[email or web address]/[facility] eGFR 89 >=60 mL/min/1. 73 m?? [facility] Comment: The eGFR was calculated using the CKD-EPI equation. As with all creatinine based estimates of kidney function, eGFR values calculated with the CKD-EPI equation are not accurate in patients with acute kidney failure, extremes of body mass or the acutely ill. [email or web address] Blood specimen (specimen) 11/10/2019 1:27 AM EDT 11/10/2019 1:41 AM EDT Narrative Resulting Agency Comment Spec In Lab Casey Singh MD CHEMISTRY ORDERABLES [facility] [place] [address] * POCT Glucose (11/09/2019 10:18 PM EDT) Glucose, POC 161 65 - 199 mg/dL [facility] Comment: Supplemental ranges: <140 mg/dL before meals <180 mg/dL all other times of the day Blood specimen (specimen) 11/09/2019 10:18 PM EDT 11/09/2019 10:18 PM EDT Casey Singh MD POINT OF CARE TEST O RDERABLES Performing Organization Address [facility]/ZIP Co de Phone Number [facility] [place] [address] * POCT Glucose (11/09/2019 4:17 PM EDT) Glucose, POC 77 65 - 199 mg/dL [facility] Comment: Supplemental ranges: <140 mg/dL before meals <180 mg/dL all other times of the day Blood specimen (specimen) 11/09/2019 4:17 PM EDT 11/09/2019 4:17 PM EDT Casey Singh MD POINT OF CARE TEST O LORI Performing Organization Address City/[facility]/ZIP Co de Phone Number [facility] [place] [address] * ABORH Recheck Status (11/09/2019 12:21 PM EDT) ABORH Type Recheck Completed [facility] Blood specimen (specimen) 11/09/2019 12:21 PM EDT 11/09/2019 12:49 PM EDT Narrative Resulting Agency Comment Spec In Lab Charlene Louis MD BLOOD BANK LAB ORDER EMILIANO [facility] [place] [address] * Antibody screen (11/09/2019 12:21 PM EDT) Ab Screen Interp Negative [facility]OR[facility]ORY Expires at [id number] on: 11/12/2019 [facility] Blood specimen (specimen) 11/09/2019 12:21 PM EDT 11/09/2019 12:49 PM EDT Narrative Resulting Agency Comment Spec In Lab Charlene Louis MD BLOOD BANK LAB ORDER EMILIANO [facility] [place] [address] * ABO/Rh Typing (11/09/2019 12:21 PM EDT) ABORH Type B Pos [facility] Blood specimen (specimen) 11/09/2019 12:21 PM EDT 11/09/2019 12:49 PM EDT Narrative Resulting Agency Comment Spec In Lab Charlene Louis MD BLOOD BANK LAB ORDER EMILIANO Performing Organization Address City/[facility]/ZIP Co de Phone Number [facility] [place] [address] * APTT (11/09/2019 12:21 PM EDT) Partial Thromboplastin Time 30 25 - 37 sec [facility] Comment: The PTT is NOT appropriate for heparin monitoring. Use the Anti-Xa level for heparin monitoring (HEP UFH) or LMWH monitoring (HEP LMW). A PTT less than 37 seconds generally indicates adequate hemostasis. Blood specimen (specimen) 11/09/2019 12:21 PM EDT 11/09/2019 12:21 PM EDT Narrative Resulting Agency Comment Spec In Lab Casey Singh MD HEMATOLOGY ORDERABLE S [facility] [place] [address] * Prothrombin Time (11/09/2019 12:21 PM EDT) Prothrombin Time 11.7 9.4 - 12.5 sec [facility] International Normalization Ratio 1.0 [facility] Comment: An INR <2.0 indicates adequate procoagulant activity for hemostasis in most patients without underlying bleeding disorders, though the INR may not adequately reflect hemostatic capacity in patients with liver disease and synthetic impairment. The recommended target INR range for therapeutic anticoagulation is 2.0 ? 3.0 for most applications, though lower and higher ranges may be appropriate depending on clinical circumstances. Blood specimen (specimen) 11/09/2019 12:21 PM EDT 11/09/2019 12:21 PM EDT Narrative Resulting Agency Comment Spec In Lab Casey Singh MD HEMATOLOGY ORDERABLE S Performing Organization Address [facility] Co de Phone Number [facility] [place] [address] * POCT Glucose (11/09/2019 11:27 AM EDT) Glucose, POC 99 65 - 199 mg/dL [facility] Comment: Supplemental ranges: <140 mg/dL before meals <180 mg/dL all other times of the day Blood specimen (specimen) 11/09/2019 11:27 AM EDT 11/09/2019 11:27 AM EDT Casey Singh MD POINT OF CARE TEST O RDERABLES Performing Organization Address [facility]/ZIP Co de Phone Number [facility] [place] [address] * POCT Glucose (11/09/2019 7:52 AM EDT) Glucose, POC 119 65 - 199 mg/dL [facility] Comment: Supplemental ranges: <140 mg/dL before meals <180 mg/dL all other times of the day Blood specimen (specimen) 11/09/2019 7:52 AM EDT 11/09/2019 7:52 AM EDT Casey Singh MD POINT OF CARE TEST O RDERABLES [facility] [place] [address] * POCT Glucose (11/09/2019 7:24 AM EDT) Glucose, POC 112 65 - 199 mg/dL [facility] Comment: Supplemental ranges: <140 mg/dL before meals <180 mg/dL all other times of the day Blood specimen (specimen) 11/09/2019 7:24 AM EDT 11/09/2019 7:24 AM EDT Casey Singh MD POINT OF CARE TEST O RDERABLES Performing Organization Address [facility]/ZIP Co de Phone Number [facility] [place] [address] * Differential, Automated (11/09/2019 2:26 AM EDT) [facility] Neutrophil % 58.4 % [facility] Neutrophil Absolute 3.44 1.70 - 6.10 x10(3)/[facility] LABORATORY Lymph % 26.7 % [facility] Lymphocytes Abs 1.6 0.9 - 3.2 x10(3)/[facility] LABORATORY Monocyte % 9.5 % [facility] Monocyte Abs 0.6 0.3 - 0.9 x10(3)/[facility] LABORATORY Eos % 3.9 % [facility] Eosinophils Abs 0.2 0.0 - 0.4 x10(3)/[facility] LABORATORY Basophil % 1.2 % [facility] Baso Absolute 0.1 0.0 - 0.1 x10(3)/[facility] LABORATORY Immature Gran % 0.30 % [facility] Comment: Immature granulocytes(IG's)percentage and absolute count will include metamyelocytes, myelocytes, and promyelocytes. Blood smears from CBCs yielding IG's will be scanned manually for concordance. If this scan disagrees with the automated IG or if promyelocytes are noted, a manual differential will be performed. Immature Gran Absolute 0.02 0.00 - 0.04 x10(3)/mcL [facility] Blood specimen (specimen) 11/09/2019 2:26 AM EDT 11/09/2019 2:43 AM EDT Narrative Resulting Agency Comment Spec In Lab Maty Mcfadden APRN HEMATOLOGY ORDERABLE S [facility] [place] [address] * (ABNORMAL) Hemogram (11/09/2019 2:26 AM EDT) White Blood Cell 5.9 4.0 - 9.5 x10(3)/mc L [facility] Red Blood Cell 4.27(L) 4.58 - 5.54 x10(6)/mc L [facility] Hemoglobin 13.0(L) 13.7 - 16.5 gm/dL [facility] Hematocrit 39.8(L) 40.5 - 48.5 % [facility] Mean Cell Volume 93.2(H) 82.9 - 93.1 [facility] LABORATORY Mean Cell Hemoglobin 30.4 27.5 - 32.1 pg [facility] Mean Cell Hemoglobin Concentration 32.7 32.0 - 35.7 gm/dL [facility] Platelet 205 145 - 357 x10(3)/mc L [facility] RDW Standard Deviation 44.1 36.0 - 45.0 [facility] LABORATORY RDW coefficient of variation 12.9 11.4 - 13.8 % [facility] Mean Platelet Volume 10.4 7.6 - 12.9 [facility] LABORATORY NRBC% auto 0.0 % [facility] NRBC Absolute 0.000 0.000 - 0.000 x10(3)/mc L [facility] Blood specimen (specimen) 11/09/2019 2:26 AM EDT 11/09/2019 2:43 AM EDT Narrative Resulting Agency Comment Spec In Lab Maty Mcfadden CHRIS HEMATOLOGY ORDERABLE S [facility] [place] [address] * Basic Metabolic Panel (non-fasting) (11/09/2019 2:26 AM EDT) Glucose 126 65 - 199 mg/dL [facility] Comment:Diabetes: >=200 mg/d L plus symptoms Blood Urea Nitrogen 18 10 - 20 mg/dL [facility] Creatinine 1.02 0.80 - 1.50 mg/dL [facility] Sodium 139 135 - 145 mmol/L [facility] Potassium 3.8 3.5 - 5.0 mmol/L [facility] Comment: Please note: ??Patients with WBC >100,000 may have falsely elevated Potassium levels. ??For accurate Potassium quantification in these patients send serum separator tube (gold top) for subsequent determinations. ??Contact the Clinical Chemistry Laboratory if there are any questions. Chloride 104 98 - 107 mmol/L [facility] Carbon Dioxide 23 22 - 31 mmol/L [facility] Anion Gap 12 5 - 15 mmol/L [facility] Calcium 9.1 8.5 - 10.5 mg/dL [facility] Est Glomerular Filtration Rate 73 >=60 mL/min/1. 73 m?? [facility] Comment: The eGFR was calculated using the CKD-EPI equation. As with all creatinine based estimates of kidney function, eGFR values calculated with the CKD-EPI equation are not accurate in patients with acute kidney failure, extremes of body mass or the acutely ill. http://[email or web address]/[facility] eGFR 84 >=60 mL/min/1. 73 m?? [facility] Comment: The eGFR was calculated using the CKD-EPI equation. As with all creatinine based estimates of kidney function, eGFR values calculated with the CKD-EPI equation are not accurate in patients with acute kidney failure, extremes of body mass or the acutely ill. http://[email or web address]/[facility] Blood specimen (specimen) 11/09/2019 2:26 AM EDT 11/09/2019 2:43 AM EDT Narrative Resulting Agency Comment Spec In Lab Casey Singh MD CHEMISTRY ORDERABLES [facility] [place] [address] * CT Head wo Contrast (Generic) (11/09/2019 1:08 AM EDT) Anatomical Region Laterality Modality Head Computed Tomogra phy Impressions 11/09/2019 2:50 AM EDT Very slight interval increase in size of the left frontal subdural hemorrhage, now 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 Grossly stable [id number] midline shift. I have personally reviewed the image(s) and the resident's interpretation and agree with the findings, Myrtle Rowan at 11/09/2019 2:50 AM Thank you for letting us participate in the care of this patient. For questions regarding this report, please contact the number below. ? Electronically signed by: Myrtle Rowan [facility] ([phone]), at 11/09/2019 2:50 AM Narrative 11/09/2019 2:50 AM EDT EXAMINATION: CT HEAD WO CONTRAST (GENERIC) CLINICAL HISTORY: Altered mental status; Subdural hemorrhage, follow-up TECHNIQUE: CT head performed without intravenous contrast administration. COMPARISON: 11/05/2019 CT head FINDINGS: The left frontal approach EVD has been removed. Mildly increased nondependent pneumocephalus and size of the heterogeneous subdural collection overlying the left frontal convexity, which measures up to 21 mm, previously 19 mm. Subarachnoid hemorrhage within the underlying frontal lobe sulci is grossly unchanged. There is similar mass effect on the left cerebral convexity with grossly stable resulting left left right midline shift of 8 mm, previously 7 mm. No uncal herniation. No new foci of parenchymal hemorrhage or extra-axial collection. Ann-white differentiation is preserved. Ventricles are stable in size. Basal cisterns are patent. Procedure Note Myrtle Rowan MD - 11/09/2019 EXAMINATION: CT HEAD WO CONTRAST (GENERIC) CLINICAL HISTORY: Altered mental status; Subdural hemorrhage, follow-up TECHNIQUE: CT head performed without intravenous contrast administration. COMPARISON: 11/05/2019 CT head FINDINGS: The left frontal approach EVD has been removed. Mildly increasednondependent pneumocephalus and size of the heterogeneous subdural collection overlyingthe left frontal convexity, which measures up to 21 mm, previously 19 mm. Subarachnoid hemorrhage within the underlying frontal lobe sulci isgrossly unchanged. There is similar mass effect on the left cerebral convexitywith grossly stable resulting left left right midline shift of 8 mm, previously7 mm. No uncal herniation. No new foci of parenchymal hemorrhage orextra-axial collection. Ann-white differentiation is preserved. Ventricles are stablein size. Basal cisterns are patent. IMPRESSION Very slight interval increase in size of the left frontal subduralhemorrhage, now 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 Grossly [id number] midline shift. I have personally reviewed the image(s) and the resident's interpretationand agree with the findings, Myrtle Rowan at 11/09/2019 2:50 AM Thank you for letting us participate in the care of this patient. Forquestions regarding this report, please contact the number below. Maty Mcfadden SPECIMEN TECHNICIAN IMG CT ORDERABLES * POCT Glucose (11/08/2019 8:58 PM EDT) Glucose, POC 104 65 - 199 mg/dL [facility] Comment: Supplemental ranges: <140 mg/dL before meals <180 mg/dL all other times of the day Blood specimen (specimen) 11/08/2019 8:58 PM EDT 11/08/2019 8:58 PM EDT Casey Singh MD POINT OF CARE TEST O LORI [facility] [place] [address] * POCT Glucose (11/08/2019 5:37 PM EDT) Glucose, POC 120 65 - 199 mg/dL [facility] Comment: Supplemental ranges: <140 mg/dL before meals <180 mg/dL all other times of the day Blood specimen (specimen) 11/08/2019 5:37 PM EDT 11/08/2019 5:37 PM EDT Casey Singh MD POINT OF CARE TEST O LORI Performing Organization Address [facility]/ZIP Co de Phone Number [facility] [place] [address] * POCT Glucose (11/08/2019 11:36 AM EDT) Glucose, POC 150 65 - 199 mg/dL [facility] Comment: Supplemental ranges: <140 mg/dL before meals <180 mg/dL all other times of the day Blood specimen (specimen) 11/08/2019 11:36 AM EDT 11/08/2019 11:36 AM EDT Casey Singh MD POINT OF CARE TEST O LORI [facility] [place] [address] * POCT Glucose (11/08/2019 8:05 AM EDT) Glucose, POC 118 65 - 199 mg/dL [facility] Comment: Supplemental ranges: <140 mg/dL before meals <180 mg/dL all other times of the day Blood specimen (specimen) 11/08/2019 8:05 AM EDT 11/08/2019 8:05 AM EDT Casey Singh MD POINT OF CARE TEST O RDERABLES [facility] [place] [address] * Differential, Automated (11/08/2019 2:24 AM EDT) [facility] Neutrophil % 49.8 % [facility] Neutrophil Absolute 3.22 1.70 - 6.10 x10(3)/[facility] Lymph % 33.0 % [facility] Lymphocytes Abs 2.1 0.9 - 3.2 x10(3)/[facility] Monocyte % 10.1 % [facility] Monocyte Abs 0.6 0.3 - 0.9 x10(3)/[facility] Eos % 5.7 % [facility] Eosinophils Abs 0.4 0.0 - 0.4 x10(3)/[facility] Basophil % 1.2 % [facility] Baso Absolute 0.1 0.0 - 0.1 x10(3)/[facility] Immature Gran % 0.20 % [facility] Comment: Immature granulocytes(IG's)percentage and absolute count will include metamyelocytes, myelocytes, and promyelocytes. Blood smears from CBCs yielding IG's will be scanned manually for concordance. If this scan disagrees with the automated IG or if promyelocytes are noted, a manual differential will be performed. Immature Gran Absolute 0.01 0.00 - 0.04 x10(3)/[facility] Blood specimen (specimen) 11/08/2019 2:24 AM EDT 11/08/2019 2:43 AM EDT Narrative Resulting Agency Comment Spec In Lab Maty Yovanny Bogdan NOW[facility] HEMATOLOGY ORDERABLE S Performing Organization Address City/[facility] Co de Phone Number [facility] [place] [address] * (ABNORMAL) Hemogram (11/08/2019 2:24 AM EDT) White Blood Cell 6.5 4.0 - 9.5 x10(3)/mc L [facility] Red Blood Cell 4.22(L) 4.58 - 5.54 x10(6)/mc L [facility] Hemoglobin 13.0(L) 13.7 - 16.5 gm/dL [facility] Hematocrit 38.7(L) 40.5 - 48.5 % [facility] Mean Cell Volume 91.7 82.9 - 93.1 [facility] Mean Cell Hemoglobin 30.8 27.5 - 32.1 pg [facility] Mean Cell Hemoglobin Concentration 33.6 32.0 - 35.7 gm/dL [facility] Platelet 188 145 - 357 x10(3)/mc L [facility] RDW Standard Deviation 43.0 36.0 - 45.0 [facility] RDW coefficient of variation 12.9 11.4 - 13.8 % [facility] Mean Platelet Volume 10.4 7.6 - 12.9 [facility] NRBC% auto 0.0 % [facility] NRBC Absolute 0.000 0.000 - 0.000 x10(3)/ L [facility] Blood specimen (specimen) 11/08/2019 2:24 AM EDT 11/08/2019 2:43 AM EDT Narrative Resulting Agency Comment Spec In Lab Matyryan Mcfadden SPECIMEN TECHNICIAN HEMATOLOGY ORDERABLE S [facility] [place] [address] * Basic Metabolic Panel (non-fasting) (11/08/2019 2:24 AM EDT) Glucose 130 65 - 199 mg/dL [facility] Comment:Diabetes: >=200 mg/d L plus symptoms Blood Urea Nitrogen 16 10 - 20 mg/dL [facility] Creatinine 0.92 0.80 - 1.50 mg/dL [facility] Sodium 140 135 - 145 mmol/L [facility] Potassium 4.0 3.5 - 5.0 mmol/L [facility] Comment: Please note: ??Patients with WBC >100,000 may have falsely elevated Potassium levels. ??For accurate Potassium quantification in these patients send serum separator tube (gold top) for subsequent determinations. ??Contact the Clinical Chemistry Laboratory if there are any questions. Chloride 102 98 - 107 mmol/L [facility] Carbon Dioxide 26 22 - 31 mmol/L [facility] Anion Gap 12 5 - 15 mmol/L [facility] Calcium 9.2 8.5 - 10.5 mg/dL [facility] Est Glomerular Filtration Rate 82 >=60 mL/min/1. 73 m?? [facility] Comment: The eGFR was calculated using the CKD-EPI equation. As with all creatinine based estimates of kidney function, eGFR values calculated with the CKD-EPI equation are not accurate in patients with acute kidney failure, extremes of body mass or the acutely ill. http://[employer]/DHnkf eGFR 95 >=60 mL/min/1. 73 m?? [facility] Comment: The eGFR was calculated using the CKD-EPI equation. As with all creatinine based estimates of kidney function, eGFR values calculated with the CKD-EPI equation are not accurate in patients with acute kidney failure, extremes of body mass or the acutely ill. http://[employer]/DHMCnkf Blood specimen (specimen) 11/08/2019 2:24 AM EDT 11/08/2019 2:43 AM EDT Narrative Resulting Agency Comment Spec In Lab Casey Singh MD CHEMISTRY ORDERABLES Performing Organization Address [facility]/ZIP Co de Phone Number [facility] [place] [address] * POCT Glucose (11/07/2019 8:55 PM EDT) Glucose, POC 130 65 - 199 mg/dL [facility] Comment: Supplemental ranges: <140 mg/dL before meals <180 mg/dL all other times of the day Blood specimen (specimen) 11/07/2019 8:55 PM EDT 11/07/2019 8:55 PM EDT Casey Singh MD POINT OF CARE TEST O RDERABLES Performing Organization Address [facility] Co de Phone Number [facility] [place] [address] * POCT Glucose (11/07/2019 5:11 PM EDT) Glucose, POC 119 65 - 199 mg/dL [facility] Comment: Supplemental ranges: <140 mg/dL before meals <180 mg/dL all other times of the day Blood specimen (specimen) 11/07/2019 5:11 PM EDT 11/07/2019 5:11 PM EDT Casey Singh MD POINT OF CARE TEST O RDERAPAMELA Performing Organization Address [facility] Co de Phone Number [facility] [place] [address] * POCT Glucose (11/07/2019 11:53 AM EDT) Glucose, POC 106 65 - 199 mg/dL [facility] Comment: Supplemental ranges: <140 mg/dL before meals <180 mg/dL all other times of the day Blood specimen (specimen) 11/07/2019 11:53 AM EDT 11/07/2019 11:53 AM EDT Casey Singh MD POINT OF CARE TEST O RDERAPAMELA [facility] [place] [address] * POCT Glucose (11/07/2019 7:45 AM EDT) Glucose, POC 117 65 - 199 mg/dL [facility] Comment: Supplemental ranges: <140 mg/dL before meals <180 mg/dL all other times of the day Blood specimen (specimen) 11/07/2019 7:45 AM EDT 11/07/2019 7:45 AM EDT Casey Singh MD POINT OF CARE TEST O LORI Performing Organization Address City/[facility] Co de Phone Number [facility] [place] [address] * Differential, Automated (11/07/2019 1:13 AM EDT) [facility] Neutrophil % 53.9 % [facility] Neutrophil Absolute 3.54 1.70 - 6.10 x10(3)/[facility] Lymph % 29.2 % [facility] Lymphocytes Abs 1.9 0.9 - 3.2 x10(3)/[facility] Monocyte % 9.9 % [facility] Monocyte Abs 0.6 0.3 - 0.9 x10(3)/[facility] Eos % 5.3 % [facility] Eosinophils Abs 0.4 0.0 - 0.4 x10(3)/[facility] Basophil % 1.4 % [facility] Baso Absolute 0.1 0.0 - 0.1 x10(3)/[facility] Immature Gran % 0.30 % [facility] Comment: Immature granulocytes(IG's)percentage and absolute count will include metamyelocytes, myelocytes, and promyelocytes. Blood smears from CBCs yielding IG's will be scanned manually for concordance. If this scan disagrees with the automated IG or if promyelocytes are noted, a manual differential will be performed. Immature Gran Absolute 0.02 0.00 - 0.04 x10(3)/mcL [facility] Blood specimen (specimen) 11/07/2019 1:13 AM EDT 11/07/2019 1:29 AM EDT Narrative Resulting Agency Comment Spec In Lab Maty Mcfadden SPECIMEN TECHNICIAN HEMATOLOGY ORDERABLE S [facility] [place] [address] * (ABNORMAL) Hemogram (11/07/2019 1:13 AM EDT) White Blood Cell 6.6 4.0 - 9.5 x10(3)/mc L [facility] Red Blood Cell 4.44(L) 4.58 - 5.54 x10(6)/mc L [facility] Hemoglobin 13.5(L) 13.7 - 16.5 gm/dL [facility] Hematocrit 40.5 40.5 - 48.5 % [facility] Mean Cell Volume 91.2 82.9 - 93.1 fL [facility] Mean Cell Hemoglobin 30.4 27.5 - 32.1 pg [facility] Mean Cell Hemoglobin Concentration 33.3 32.0 - 35.7 gm/dL [facility] Platelet 187 145 - 357 x10(3)/mc L [facility] RDW Standard Deviation 42.5 36.0 - 45.0 [facility] RDW coefficient of variation 12.9 11.4 - 13.8 % [facility] Mean Platelet Volume 10.5 7.6 - 12.9 [facility] NRBC% auto 0.0 % [facility] NRBC Absolute 0.000 0.000 - 0.000 x10(3)/mc L [facility] Blood specimen (specimen) 11/07/2019 1:13 AM EDT 11/07/2019 1:29 AM EDT Narrative Resulting Agency Comment Spec In Lab Maty Mcfadden SPECIMEN TECHNICIAN HEMATOLOGY ORDERABLE S [facility] [place] [address] * Basic Metabolic Panel (non-fasting) (11/07/2019 1:13 AM EDT) Glucose 132 65 - 199 mg/dL [facility] Comment:Diabetes: >=200 mg/d L plus symptoms Blood Urea Nitrogen 16 10 - 20 mg/dL [facility] Creatinine 0.96 0.80 - 1.50 mg/dL [facility] Sodium 139 135 - 145 mmol/L [facility] Potassium 4.1 3.5 - 5.0 mmol/L [facility] Comment: Please note: ??Patients with WBC >100,000 may have falsely elevated Potassium levels. ??For accurate Potassium quantification in these patients send serum separator tube (gold top) for subsequent determinations. ??Contact the Clinical Chemistry Laboratory if there are any questions. Chloride 106 98 - 107 mmol/L [facility] Carbon Dioxide 23 22 - 31 mmol/L [facility] Anion Gap 10 5 - 15 mmol/L [facility] Calcium 8.9 8.5 - 10.5 mg/dL [facility] Est Glomerular Filtration Rate 78 >=60 mL/min/1. 73 m?? [facility] Comment: The eGFR was calculated using the CKD-EPI equation. As with all creatinine based estimates of kidney function, eGFR values calculated with the CKD-EPI equation are not accurate in patients with acute kidney failure, extremes of body mass or the acutely ill. http://[employer]/DHMCnkf eGFR 91 >=60 mL/min/1. 73 m?? [facility] Comment: The eGFR was calculated using the CKD-EPI equation. As with all creatinine based estimates of kidney function, eGFR values calculated with the CKD-EPI equation are not accurate in patients with acute kidney failure, extremes of body mass or the acutely ill. [email or web address] Blood specimen (specimen) 11/07/2019 1:13 AM EDT 11/07/2019 1:29 AM EDT Narrative Resulting Agency Comment Spec In Lab Casey Singh MD CHEMISTRY ORDERABLES Performing Organization Address City/[facility]/ZIP Co de Phone Number [facility] [place] [address] * POCT Glucose (11/06/2019 8:14 PM EDT) Glucose, POC 132 65 - 199 mg/dL [facility] Comment: Supplemental ranges: <140 mg/dL before meals <180 mg/dL all other times of the day Blood specimen (specimen) 11/06/2019 8:14 PM EDT 11/06/2019 8:14 PM EDT Casey Singh MD POINT OF CARE TEST O RDERABLES Performing Organization Address [facility] Co de Phone Number [facility] [place] [address] * POCT Glucose (11/06/2019 12:09 PM EDT) Glucose, POC 98 65 - 199 mg/dL [facility] Comment: Supplemental ranges: <140 mg/dL before meals <180 mg/dL all other times of the day Blood specimen (specimen) 11/06/2019 12:09 PM EDT 11/06/2019 12:09 PM EDT Casey Singh MD POINT OF CARE TEST O RDCATRACHO Performing Organization Address City/[facility]/ZIP Co de Phone Number [facility] [place] [address] * POCT Glucose (11/06/2019 7:56 AM EDT) Pathologist [facility] Glucose, POC 115 65 - 199 mg/dL [facility] Comment: Supplemental ranges: <140 mg/dL before meals <180 mg/dL all other times of the day Blood specimen (specimen) 11/06/2019 7:56 AM EDT 11/06/2019 7:56 AM EDT Casey Singh MD POINT OF CARE TEST O RDERABLES [facility] [place] [address] * Differential, Automated (11/06/2019 1:25 AM EDT) [facility] Neutrophil % 57.2 % [facility] Neutrophil Absolute 4.23 1.70 - 6.10 x10(3)/[facility] Lymph % 26.9 % [facility] Lymphocytes Abs 2.0 0.9 - 3.2 x10(3)/[facility] Monocyte % 10.1 % [facility] Monocyte Abs 0.8 0.3 - 0.9 x10(3)/[facility] Eos % 4.7 % [facility] Eosinophils Abs 0.4 0.0 - 0.4 x10(3)/[facility] Basophil % 0.8 % [facility] Baso Absolute 0.1 0.0 - 0.1 x10(3)/[facility] Immature Gran % 0.30 % [facility] Comment: Immature granulocytes(IG's)percentage and absolute count will include metamyelocytes, myelocytes, and promyelocytes. Blood smears from CBCs yielding IG's will be scanned manually for concordance. If this scan disagrees with the automated IG or if promyelocytes are noted, a manual differential will be performed. Immature Gran Absolute 0.02 0.00 - 0.04 x10(3)/[facility] Blood specimen (specimen) 11/06/2019 1:25 AM EDT 11/06/2019 1:41 AM EDT Narrative Resulting Agency Comment Spec In Lab Maty Mcfadden SPECIMEN TECHNICIAN HEMATOLOGY ORDERABLE S [facility] [place] [address] * (ABNORMAL) Hemogram (11/06/2019 1:25 AM EDT) White Blood Cell 7.4 4.0 - 9.5 x10(3)/[facility] Red Blood Cell 4.27(L) 4.58 - 5.54 x10(6)/mc L [facility] Hemoglobin 13.1(L) 13.7 - 16.5 gm/dL [facility] Hematocrit 39.5(L) 40.5 - 48.5 % [facility] Mean Cell Volume 92.5 82.9 - 93.1 [facility] Mean Cell Hemoglobin 30.7 27.5 - 32.1 pg [facility] Mean Cell Hemoglobin Concentration 33.2 32.0 - 35.7 gm/dL [facility] Platelet 179 145 - 357 x10(3)/mc L [facility] RDW Standard Deviation 42.6 36.0 - 45.0 [facility] RDW coefficient of variation 12.5 11.4 - 13.8 % [facility] Mean Platelet Volume 10.5 7.6 - 12.9 [facility] NRBC% auto 0.0 % [facility] NRBC Absolute 0.000 0.000 - 0.000 x10(3)/ L [facility] Blood specimen (specimen) 11/06/2019 1:25 AM EDT 11/06/2019 1:41 AM EDT Narrative Resulting Agency Comment Spec In Lab Maty Mcfadden SPECIMEN TECHNICIAN HEMATOLOGY ORDERABLE S [facility] [place] [address] * (ABNORMAL) Basic Metabolic Panel (non-fasting) (11/06/2019 1:25 AM EDT) Glucose 87 65 - 199 mg/dL [facility] Comment:Diabetes: >=200 mg/d L plus symptoms Blood Urea Nitrogen 12 10 - 20 mg/dL [facility] Creatinine 0.96 0.80 - 1.50 mg/dL [facility] Sodium 140 135 - 145 mmol/L [facility] Potassium 4.0 3.5 - 5.0 mmol/L [facility] Comment: Please note: ??Patients with WBC >100,000 may have falsely elevated Potassium levels. ??For accurate Potassium quantification in these patients send serum separator tube (gold top) for subsequent determinations. ??Contact the Clinical Chemistry Laboratory if there are any questions. Chloride 109(H) 98 - 107 mmol/L [facility] Carbon Dioxide 21(L) 22 - 31 mmol/L [facility] Anion Gap 10 5 - 15 mmol/L [facility] Calcium 8.8 8.5 - 10.5 mg/dL [facility] Est Glomerular Filtration Rate 78 >=60 mL/min/1. 73 m?? [facility] Comment: The eGFR was calculated using the CKD-EPI equation. As with all creatinine based estimates of kidney function, eGFR values calculated with the CKD-EPI equation are not accurate in patients with acute kidney failure, extremes of body mass or the acutely ill. http://[employer]/[facility]AN[facility] eGFR 91 >=60 mL/min/1. 73 m?? [facility] Comment: The eGFR was calculated using the CKD-EPI equation. As with all creatinine based estimates of kidney function, eGFR values calculated with the CKD-EPI equation are not accurate in patients with acute kidney failure, extremes of body mass or the acutely ill. http://[employer]/[facility]AN[facility]f Blood specimen (specimen) 11/06/2019 1:25 AM EDT 11/06/2019 1:41 AM EDT Narrative Resulting Agency Comment Spec In Lab Casey Singh MD CHEMISTRY ORDERABLES Performing Organization Address [facility]/ZIP Co de Phone Number [facility] [place] [address] * POCT Glucose (11/05/2019 8:28 PM EDT) Glucose, POC 114 65 - 199 mg/dL [facility] Comment: Supplemental ranges: <140 mg/dL before meals <180 mg/dL all other times of the day Blood specimen (specimen) 11/05/2019 8:28 PM EDT 11/05/2019 8:28 PM EDT Casey Singh MD POINT OF CARE TEST O RDERABLES Performing Organization Address [facility]/ZIP Co de Phone Number [facility] [place] [address] * POCT Glucose (11/05/2019 6:58 PM EDT) Glucose, POC 78 65 - 199 mg/dL [facility] Comment: Supplemental ranges: <140 mg/dL before meals <180 mg/dL all other times of the day Blood specimen (specimen) 11/05/2019 6:58 PM EDT 11/05/2019 6:58 PM EDT Casey Singh MD POINT OF CARE TEST O LORI Performing Organization Address [facility]/ZIP Co de Phone Number [facility] [place] [address] * (ABNORMAL) POCT Glucose (11/05/2019 6:18 PM EDT) Glucose, POC 60(L) 65 - 199 mg/dL [facility] Comment: Supplemental ranges: <140 mg/dL before meals <180 mg/dL all other times of the day Blood specimen (specimen) 11/05/2019 6:18 PM EDT 11/05/2019 6:18 PM EDT Casey Singh MD POINT OF CARE TEST O LORI Performing Organization Address [facility] Co de Phone Number [facility] [place] [address] * POCT Glucose (11/05/2019 12:02 PM EDT) Glucose, POC 73 65 - 199 mg/dL [facility] Comment: Supplemental ranges: <140 mg/dL before meals <180 mg/dL all other times of the day Blood specimen (specimen) 11/05/2019 12:02 PM EDT 11/05/2019 12:02 PM EDT Casey Singh MD POINT OF CARE TEST O LORI Performing Organization Address [facility] Co de Phone Number [facility] [facility] [place] [address] * POCT Glucose (11/05/2019 8:11 AM EDT) Glucose, POC 70 65 - 199 mg/dL [facility] Comment: Supplemental ranges: <140 mg/dL before meals <180 mg/dL all other times of the day Blood specimen (specimen) 11/05/2019 8:11 AM EDT 11/05/2019 8:11 AM EDT Casey Singh MD POINT OF CARE TEST O LROI Performing Organization Address [facility] Co de Phone Number [facility] [place] [address] * CT Head wo Contrast (Generic) (11/05/2019 4:06 AM EDT) Anatomical Region Laterality Modality Head Computed Tomogra phy Impressions 11/05/2019 4:37 AM EDT Stable examination with no interval change in size of the left subdural hematoma or associated mass effect. Thank you for letting us participate in the care of this patient. For questions regarding this report, please contact the number below. ? Electronically signed by: TALI Thomas [facility] ([phone]), at 11/05/2019 4:37 AM Narrative 11/05/2019 4:37 AM EDT EXAMINATION: CT HEAD WO CONTRAST (GENERIC) CLINICAL HISTORY: Headache, intracranial hemorrhage suspected recurrent of mild L sided weakness, surveillance of f/u L SDH TECHNIQUE: CT head performed without intravenous contrast administration. COMPARISON: Prior head CTs, most recent from November 04, 2019 FINDINGS: The left frontal approach SEPS drain remains in place. There is been no interval change in size of the left subdural collection. The thin subdural hemorrhage along the posterior falx and tentorium is also unchanged. Minimally decreased volume of the previously seen subarachnoid hemorrhage within the left frontal cerebral sulci. There is unchanged mass effect predominantly on the left frontal convexity with grossly stable 7 to 8 mm zulw-sj-kohxe midline shift. The suprasellar and basal cisterns remain patent. No new parenchymal hemorrhage or enlarging extra-axial collection. Ann-white differentiation is preserved. Procedure Note Myrtle Rowan MD - 11/05/2019 EXAMINATION: CT HEAD WO CONTRAST (GENERIC) CLINICAL HISTORY: Headache, intracranial hemorrhage suspected recurrent of mild L sided weakness, surveillance of f/u L SDH TECHNIQUE: CT head performed without intravenous contrast administration. COMPARISON: Prior head CTs, most recent from November 04, 2019 FINDINGS: The left frontal approach SEPS drain remains in place. There is been nointerval change in size of the left subdural collection. The thin subduralhemorrhage along the posterior falx and tentorium is also unchanged. Minimallydecreased volume of the previously seen subarachnoid hemorrhage within the leftfrontal cerebral sulci. There is unchanged mass effect predominantly on the leftfrontal convexity with grossly stable 7 to 8 mm kjaj-sc-dipyv midline shift. The suprasellar and basal cisterns remain patent. No new parenchymalhemorrhage or enlarging extra-axial collection. Ann-white differentiation ispreserved. IMPRESSION Stable examination with no interval change in size of the left subduralhematoma or associated mass effect. Thank you for letting us participate in the care of this patient. Forquestions regarding this report, please contact the number below. Casey Singh MD IMG CT ORDERABLES * Differential, Automated (11/05/2019 1:16 AM EDT) Neutrophil % 61.3 % [facility] Neutrophil Absolute 4.79 1.70 - 6.10 x10(3)/[facility] Lymph % 25.4 % [facility] Lymphocytes Abs 2.0 0.9 - 3.2 x10(3)/[facility] Monocyte % 8.3 % [facility] Monocyte Abs 0.6 0.3 - 0.9 x10(3)/[facility] Eos % 4.1 % [facility] Eosinophils Abs 0.3 0.0 - 0.4 x10(3)/[facility] Basophil % 0.8 % [facility] Baso Absolute 0.1 0.0 - 0.1 x10(3)/[facility] Immature Gran % 0.10 % [facility] Comment: Immature granulocytes(IG's)percentage and absolute count will include metamyelocytes, myelocytes, and promyelocytes. Blood smears from CBCs yielding IG's will be scanned manually for concordance. If this scan disagrees with the automated IG or if promyelocytes are noted, a manual differential will be performed. Immature Gran Absolute 0.01 0.00 - 0.04 x10(3)/[facility] Blood specimen (specimen) 11/05/2019 1:16 AM EDT 11/05/2019 1:35 AM EDT Narrative Resulting Agency Comment Spec In Lab Maty Mcfadden APRN HEMATOLOGY ORDERABLE S [facility] [place] [address] * (ABNORMAL) Hemogram (11/05/2019 1:16 AM EDT) White Blood Cell 7.8 4.0 - 9.5 x10(3)/[facility] Red Blood Cell 4.32(L) 4.58 - 5.54 x10(6)/[facility] Hemoglobin 13.0(L) 13.7 - 16.5 gm/dL [facility] Hematocrit 40.1(L) 40.5 - 48.5 % [facility] Mean Cell Volume 92.8 82.9 - 93.1 [facility] Mean Cell Hemoglobin 30.1 27.5 - 32.1 pg [facility] Mean Cell Hemoglobin Concentration 32.4 32.0 - 35.7 gm/dL [facility] Platelet 175 145 - 357 x10(3)/[facility] RDW Standard Deviation 43.9 36.0 - 45.0 [facility] RDW coefficient of variation 12.8 11.4 - 13.8 % [facility] Mean Platelet Volume 10.2 7.6 - 12.9 [facility] NRBC% auto 0.0 % [facility] NRBC Absolute 0.000 0.000 - 0.000 x10(3)/[facility] Blood specimen (specimen) 11/05/2019 1:16 AM EDT 11/05/2019 1:35 AM EDT Narrative Resulting Agency Comment Spec In Lab Maty Mcfadden CHRIS HEMATOLOGY ORDERABLE S [facility] [place] [address] * Basic Metabolic Panel (non-fasting) (11/05/2019 1:16 AM EDT) Glucose 77 65 - 199 mg/dL [facility] Comment:Diabetes: >=200 mg/d L plus symptoms Blood Urea Nitrogen 11 10 - 20 mg/dL [facility] Creatinine 0.91 0.80 - 1.50 mg/dL [facility] Sodium 139 135 - 145 mmol/L [facility] Potassium 4.2 3.5 - 5.0 mmol/L [facility] Comment: Please note: ??Patients with WBC >100,000 may have falsely elevated Potassium levels. ??For accurate Potassium quantification in these patients send serum separator tube (gold top) for subsequent determinations. ??Contact the Clinical Chemistry Laboratory if there are any questions. Chloride 107 98 - 107 mmol/L [facility] Carbon Dioxide 22 22 - 31 mmol/L [facility] Anion Gap 10 5 - 15 mmol/L [facility] Calcium 8.8 8.5 - 10.5 mg/dL [facility] Est Glomerular Filtration Rate 83 >=60 mL/min/1. 73 m?? [facility] Comment: The eGFR was calculated using the CKD-EPI equation. As with all creatinine based estimates of kidney function, eGFR values calculated with the CKD-EPI equation are not accurate in patients with acute kidney failure, extremes of body mass or the acutely ill. http://[employer]/[facility] eGFR 97 >=60 mL/min/1. 73 m?? [facility] Comment: The eGFR was calculated using the CKD-EPI equation. As with all creatinine based estimates of kidney function, eGFR values calculated with the CKD-EPI equation are not accurate in patients with acute kidney failure, extremes of body mass or the acutely ill. http://[employer]/[facility] Blood specimen (specimen) 11/05/2019 1:16 AM EDT 11/05/2019 1:35 AM EDT Narrative Resulting Agency Comment Spec In Lab Casey Singh MD CHEMISTRY ORDERABLES Performing Organization Address [facility] Co de Phone Number [facility] [place] [address] * POCT Glucose (11/04/2019 9:00 PM EDT) Glucose, POC 82 65 - 199 mg/dL [facility] Comment: Supplemental ranges: <140 mg/dL before meals <180 mg/dL all other times of the day Blood specimen (specimen) 11/04/2019 9:00 PM EDT 11/04/2019 9:00 PM EDT Casey Singh MD POINT OF CARE TEST O RDERABLES Performing Organization Address [facility] Co de Phone Number [facility] [place] [address] * Troponin (11/04/2019 7:19 PM EDT) [facility] Troponin-T <0.01 0.00 - 0.00 ng/mL [facility] Comment: The 99th percentile for Troponin T is less than 0.01 ng/mL, any detectable cTnT concentration using this assay should be considered elevated. According to the third universal definition of myocardial infarction the following criteria with a clinical presentation consistent with acute myocardial ischemia meets the diagnosis for a myocardial infarction (TN). Detection of a rise and/or fall of cTnT, with at least one value greater than the 99th percentile (> or = 0.01) and with at least one of the following ?? Symptoms of ischemia ?? New or presumed new significant VT-vszppsw-T wave (ST-T) changes or new left bundle branch block (LBBB) ?? Development of pathologic Q waves in the ECG ?? Imaging evidence of new loss of viable myocardium or new regional wall motion abnormality ?? Identification of an intracoronary thrombus by angiography or autopsy Samples for cTnT testing should be obtained serially upon first assessment and again 3 to 6 hours later. If the clinical suspicion is high and previous samples have been negative an additional sample may be indicated. Reference: Third [place] Definition of Myocardial Infarction. Journal of the [place] [employer] 2012;60:1581-98 Blood specimen (specimen) 11/04/2019 7:19 PM EDT 11/04/2019 7:33 PM EDT Narrative Resulting Agency Comment Spec In Lab Casey Singh MD CHEMISTRY ORDERABLES Performing Organization Address [facility] Co de Phone Number [facility] [place] [address] * EKG 12 Lead (11/04/2019 7:16 PM EDT) Ventricular rate 60 BPM MUSE SYSTEM Atrial Rate 60 BPM MUSE SYSTEM P-R Interval 166 ms MUSE SYSTEM QRS Duration 80 ms MUSE SYSTEM Q-T Interval 390 ms MUSE SYSTEM QTC Calculated (Bezet) 390 ms MUSE SYSTEM Calculated P Shell 47 degrees MUSE SYSTEM Calculated R Shell -6 degrees MUSE SYSTEM Calculated T Shell 20 degrees MUSE SYSTEM INTERPRETATION Normal sinus rhythm Normal ECG No previous ECGs available Confirmed by Dedrick Gaspar MD ([id number]) on 11/06/2019 1:56:59 PM MUSE SYSTEM 11/04/2019 7:16 PM EDT 11/06/2019 1:56 PM EDT Casey Singh MD ECG ORDERABLES Performing Organization Address [facility] Phone Number MUSE SYSTEM * POCT Glucose (11/04/2019 6:22 PM EDT) Glucose, POC 88 65 - 199 mg/dL [facility] Comment: Supplemental ranges: <140 mg/dL before meals <180 mg/dL all other times of the day Blood specimen (specimen) 11/04/2019 6:22 PM EDT 11/04/2019 6:22 PM EDT Casey Singh MD POINT OF CARE TEST O RDERABLES Performing Organization Address [facility] Co de Phone Number [facility] [place] [address] * POCT Glucose (11/04/2019 4:30 PM EDT) Glucose, POC 80 65 - 199 mg/dL [facility] Comment: Supplemental ranges: <140 mg/dL before meals <180 mg/dL all other times of the day Blood specimen (specimen) 11/04/2019 4:30 PM EDT 11/04/2019 4:30 PM EDT Casey Singh MD POINT OF CARE TEST O RDERAPAMELA [facility] [place] [address] * POCT Glucose (11/04/2019 12:15 PM EDT) Glucose, POC 72 65 - 199 mg/dL [facility] Comment: Supplemental ranges: <140 mg/dL before meals <180 mg/dL all other times of the day Blood specimen (specimen) 11/04/2019 12:15 PM EDT 11/04/2019 12:15 PM EDT Casey Singh MD POINT OF CARE TEST O LORI [facility] [place] [address] * POCT Glucose (11/04/2019 7:42 AM EDT) Glucose, POC 77 65 - 199 mg/dL [facility] Comment: Supplemental ranges: <140 mg/dL before meals <180 mg/dL all other times of the day Blood specimen (specimen) 11/04/2019 7:42 AM EDT 11/04/2019 7:42 AM EDT Casey Singh MD POINT OF CARE TEST O RDERAPAMELA [facility] [place] [address] * CT Head wo Contrast (Generic) (11/04/2019 5:26 AM EDT) Anatomical Region Laterality Modality Head Computed Tomogra phy Impressions 11/04/2019 6:39 AM EDT Decreased size of the left subdural hemorrhage, with associated decreased left to right midline shift currently measuring 8 mm previously 10 mm. Thank you for letting us participate in the care of this patient. For questions regarding this report, please contact the number below. ? Electronically signed by: TALI Thomas [facility] ([phone]), at 11/04/2019 6:39 AM Narrative 11/04/2019 6:39 AM EDT EXAMINATION: CT HEAD WO CONTRAST (GENERIC) CLINICAL HISTORY: Subdural hemorrhage, follow-up TECHNIQUE: CT head performed without intravenous contrast administration. COMPARISON: Head CT from November 02, 2019 FINDINGS: The left frontal approach sepsis drain remains in place. There has been some interval decrease in size of the left subdural collection, which now measures up to 1.9 cm, previously 2.6 cm in maximal width. Thin subdural hemorrhage layering along the posterior falx and left tentorium is unchanged. Trace subarachnoid hemorrhage within the left frontal lobe sulci is also unchanged. Minimally decreased mass effect on the left cerebral convexity with 8 mm left to right midline shift, 10 mm. No transtentorial herniation. No evidence of acute infarct. Procedure Note Myrtle Rowan MD - 11/04/2019 EXAMINATION: CT HEAD WO CONTRAST (GENERIC) CLINICAL HISTORY: Subdural hemorrhage, follow-up TECHNIQUE: CT head performed without intravenous contrast administration. COMPARISON: Head CT from November 02, 2019 FINDINGS: The left frontal approach sepsis drain remains in place. There has beensome interval decrease in size of the left subdural collection, which nowmeasures up to 1.9 cm, previously 2.6 cm in maximal width. Thin subdural hemorrhagelayering along the posterior falx and left tentorium is unchanged. Tracesubarachnoid hemorrhage within the left frontal lobe sulci is also unchanged.Minimally decreased mass effect on the left cerebral convexity with 8 mm left toright midline shift, 10 mm. No transtentorial herniation. No evidence of acute infarct. IMPRESSION Decreased size of the left subdural hemorrhage, with associated decreasedleft to right midline shift currently measuring 8 mm previously 10 mm. Thank you for letting us participate in the care of this patient. Forquestions regarding this report, please contact the number below. Casey Singh MD IMG CT ORDERABLES * Differential, Automated (11/04/2019 3:48 AM EDT) Neutrophil % 68.3 % [facility] Neutrophil Absolute 5.46 1.70 - 6.10 x10(3)/[facility] Lymph % 20.3 % [facility] Lymphocytes Abs 1.6 0.9 - 3.2 x10(3)/[facility] Monocyte % 9.5 % [facility] Monocyte Abs 0.8 0.3 - 0.9 x10(3)/[facility] Eos % 0.9 % [facility] Eosinophils Abs 0.1 0.0 - 0.4 x10(3)/[facility] Basophil % 0.6 % [facility] Baso Absolute 0.0 0.0 - 0.1 x10(3)/[facility] Immature Gran % 0.40 % [facility] Comment: Immature granulocytes(IG's)percentage and absolute count will include metamyelocytes, myelocytes, and promyelocytes. Blood smears from CBCs yielding IG's will be scanned manually for concordance. If this scan disagrees with the automated IG or if promyelocytes are noted, a manual differential will be performed. Immature Gran Absolute 0.03 0.00 - 0.04 x10(3)/[facility] Blood specimen (specimen) 11/04/2019 3:48 AM EDT 11/04/2019 4:15 AM EDT Narrative Resulting Agency Comment Spec In Lab Maty Mcfadden APRN HEMATOLOGY ORDERABLE S [facility] [place] [address] * (ABNORMAL) Hemogram (11/04/2019 3:48 AM EDT) White Blood Cell 8.0 4.0 - 9.5 x10(3)/[facility] Red Blood Cell 4.39(L) 4.58 - 5.54 x10(6)/[facility] Hemoglobin 13.4(L) 13.7 - 16.5 gm/dL [facility] Hematocrit 40.7 40.5 - 48.5 % [facility] Mean Cell Volume 92.7 82.9 - 93.1 [facility] Mean Cell Hemoglobin 30.5 27.5 - 32.1 pg [facility] Mean Cell Hemoglobin Concentration 32.9 32.0 - 35.7 gm/dL [facility] Platelet 171 145 - 357 x10(3)/[facility] RDW Standard Deviation 43.4 36.0 - 45.0 [facility] RDW coefficient of variation 12.7 11.4 - 13.8 % [facility] Mean Platelet Volume 10.6 7.6 - 12.9 [facility] NRBC% auto 0.0 % [facility] NRBC Absolute 0.000 0.000 - 0.000 x10(3)/[facility] Blood specimen (specimen) 11/04/2019 3:48 AM EDT 11/04/2019 4:15 AM EDT Narrative Resulting Agency Comment Spec In Lab Maty Gaffneyfelix PEREZ HEMATOLOGY ORDERABLE S [facility] [place] [address] * Basic Metabolic Panel (non-fasting) (11/04/2019 3:48 AM EDT) Glucose 97 65 - 199 mg/dL [facility] Comment:Diabetes: >=200 mg/d L plus symptoms Blood Urea Nitrogen 10 10 - 20 mg/dL [facility] Creatinine 0.91 0.80 - 1.50 mg/dL [facility] Sodium 141 135 - 145 mmol/L [facility] Potassium 4.3 3.5 - 5.0 mmol/L [facility] Comment: Please note: ??Patients with WBC >100,000 may have falsely elevated Potassium levels. ??For accurate Potassium quantification in these patients send serum separator tube (gold top) for subsequent determinations. ??Contact the Clinical Chemistry Laboratory if there are any questions. Chloride 107 98 - 107 mmol/L [facility] Carbon Dioxide 23 22 - 31 mmol/L [facility] Anion Gap 11 5 - 15 mmol/L [facility] Calcium 8.9 8.5 - 10.5 mg/dL [facility] Est Glomerular Filtration Rate 83 >=60 mL/min/1. 73 m?? [facility] Comment: The eGFR was calculated using the CKD-EPI equation. As with all creatinine based estimates of kidney function, eGFR values calculated with the CKD-EPI equation are not accurate in patients with acute kidney failure, extremes of body mass or the acutely ill. http://[employer]/[facility] eGFR 97 >=60 mL/min/1. 73 m?? [facility] Comment: The eGFR was calculated using the CKD-EPI equation. As with all creatinine based estimates of kidney function, eGFR values calculated with the CKD-EPI equation are not accurate in patients with acute kidney failure, extremes of body mass or the acutely ill. [email or web address] Blood specimen (specimen) 11/04/2019 3:48 AM EDT 11/04/2019 4:15 AM EDT Narrative Resulting Agency Comment Spec In Lab Casey Singh MD CHEMISTRY ORDERABLES Performing Organization Address [facility] Co de Phone Number [facility] [place] [address] * POCT Glucose (11/03/2019 11:53 PM EDT) Glucose, POC 77 65 - 199 mg/dL [facility] Comment: Supplemental ranges: <140 mg/dL before meals <180 mg/dL all other times of the day Blood specimen (specimen) 11/03/2019 11:53 PM EDT 11/03/2019 11:53 PM EDT Casey Singh MD POINT OF CARE TEST O RDERABLES Performing Organization Address [facility] Co de Phone Number [facility] [place] [address] * POCT Glucose (11/03/2019 6:34 PM EDT) Glucose, POC 93 65 - 199 mg/dL [facility] Comment: Supplemental ranges: <140 mg/dL before meals <180 mg/dL all other times of the day Blood specimen (specimen) 11/03/2019 6:34 PM EDT 11/03/2019 6:34 PM EDT Casey Singh MD POINT OF CARE TEST O RDERABLES Performing Organization Address [facility] Co de Phone Number [facility] [place] [address] * IR EMBOLIZATION MIDDLE MENINGEAL ARTERY UNILATERAL (11/03/2019 5:16 PM EDT) Anatomical Region Laterality Modality Spine X-Ray Angiograph y Impressions 11/10/2019 10:28 AM EDT 1. ??Focal prominent dural blush versus active extravasation from branches of the left middle meningeal artery. 2. ??Particle embolization of the frontoparietal branch to the of the left middle meningeal artery. 3. 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 For questions regarding this report, please contact the number below. ? Electronically signed by: Hussain Christianson [facility] ([phone]), at 11/10/2019 10:28 AM Narrative 11/10/2019 10:28 AM EDT EXAMINATION: IR EMBOLIZATION MIDDLE MENINGEAL ARTERY UNILATERAL CLINICAL HISTORY: LEFT subdural hematoma OPERATORS: Attending physician: Hussain Christianson MD Resident physician: Amor Singletary DO PROCEDURE: 1. Cerebral angiogram 2. Left middle meningeal artery embolization 3. Mynx closure of femoral arteriotomy ANESTHESIA: General endotracheal anesthesia EBL: <50 ml CONTRAST: 100 mL Visipaque-320. RADIATION EXPOSURE: A-plane 570.5 mGy, B-plane ??398.1 mGy MATERIALS: Micropuncture set, .035 3J guidewire,.035angle-tipped hydrophilic guidewire, 5 Fr Glidesheath, 5 Fr Envoy MPC guide catheter, Torcon NB Advantage 5 Fr STEVO selective catheter, [place] SL-10 microcatheter, Synchro2 microwire, 250 micron Embozene- 1 vial, 6 Belgian Angio-Seal. DESCRIPTION: The procedure, its risks and benefits were discussed with the patient and written informed consent was obtained. The patient was brought to the angiography suite and received moderate sedation. The ??right groin was sterilely prepped and draped. The right femoral artery was accessed using the micropuncture set and the 5 Fr sheath placed. The guide catheter was placed in the descending aorta, double-flushed, and connected to continuous heparinized saline infusion. The catheter was placed in the left internal carotid artery using roadmap guidance and the hydrophilic guidewire. Biplane cerebral angiogram was performed. The catheter was then placed in the right external carotid artery and biplane angiogram performed. The guide catheter was directed to the left external carotid artery. The microcatheter was advanced to the left ??middle meningeal artery using roadmap guidance and the microwire. Hand-injected microcatheter angiogram was performed. The microcatheter was advanced to the frontal division of the left medial meningeal artery. The artery was embolized using 250 micron Embozene particles. Stasis was confirmed with hand-injected microcatheter injection. The microcatheter was removed. Post-embolization angiogram of the left common carotid artery was performed. The guide catheter was removed The 5 Belgian Kalyan catheter was then placed in the descending aorta, flushed, and connected to a continuous heparinized saline infusion. This catheter was sequentially directed to the right internal carotid, right external carotid, right vertebral, and left vertebral arteries. Biplane cerebral angiograms were obtained from each position. The catheter was removed. Sheath was removed. Femoral artery roadmap was performed. The 5 Fr Mynx closure device was used to achieve hemostasis. The patient tolerated the procedure well . No immediate complications FINDINGS: LEFT COMMON CAROTID ARTERY ROADMAP INJECTION: Common carotid, internal and external carotid are normal in appearance without focal narrowing. LEFT INTERNAL CAROTID ARTERY INJECTION: There is mass effect over the left cerebral convexity, consistent with the known subdural hematoma. The ICA and its branches are of normal course and caliber. There is opacification of the ophthalmic artery and presence of a choroidal blush. LEFT EXTERNAL CAROTID ARTERY INJECTION: There are two small foci of prominent contrast blush or even extravasation from branches of the frontoparietal branch of the left middle meningeal artery. There is rapid arteriovenous shunting from a fistula along the lateral aspect of the left occipital lobe. Arterial supply is primarily from the occipital artery, through numerous small branches to a cortical vein that drains cephalad to the superior sagittal sinus and to the left vein of Michael. There is only mild stenosis in the draining veins. Left MIDDLE MENINGEAL ARTERY INJECTION: There is also supply from the squamous branch of the left middle meningeal artery to the arteriovenous fistula. The site of prominent blush/extravasation from the frontoparietal branches of the middle meningeal artery is again demonstrated. No communication to the orbit or ophthalmic artery is evident. LEFT FRONTOPARIETAL BRANCH OF THE MIDDLE MENINGEAL ARTERY INJECTION: No communication to the orbit or ophthalmic artery is evident there is occlusion of this branch after the administration of the particles. LEFT EXTERNAL CAROTID ARTERY INJECTION (POST EMBOLIZATION): There is occlusion of the frontoparietal branches of the middle meningeal artery. The squamosal branch with opacification of the dural fistula is unchanged. Choroidal blush remains present LEFT COMMON CAROTID ARTERY INJECTION (POST EMBOLIZATION): The internal carotid artery and its branches are unchanged in course and caliber. RIGHT CAROTID ROADMAP: The carotid bifurcation is of normal appearance without focal stenosis RIGHT INTERNAL CAROTID ARTERY INJECTION: The ICA and its branches are of normal course and caliber. There is no supply to the arteriovenous fistula. RIGHT EXTERNAL CAROTID ARTERY INJECTION: External carotid and branches are normal in appearance. There is no supply to the arteriovenous fistula. RIGHT FEMORAL ARTERY ROADMAP: The right common femoral artery is without stenosis. Right vertebral artery injection: The vertebral artery and its branches are of normal course and caliber with the exception of mild atherosclerotic irregularity of the basilar artery. There is little reflux to the left vertebral artery and no opacification of the arteriovenous fistula. Left vertebral artery injection: The left vertebral artery is of normal appearance. There is only a small segment beyond the posterior inferior cerebellar artery. There is no opacification of the arteriovenous fistula Procedure Note Hussain Christianson MD - 11/10/2019 EXAMINATION: IR EMBOLIZATION MIDDLE MENINGEAL ARTERY UNILATERAL CLINICAL HISTORY: LEFT subdural hematoma OPERATORS: Attending physician: Hussain Christianson MD Resident physician: Amor Singletary DO PROCEDURE: 1. Cerebral angiogram 2. Left middle meningeal artery embolization 3. Mynx closure of femoral arteriotomy ANESTHESIA: General endotracheal anesthesia EBL: <50 ml CONTRAST: 100 mL Visipaque-320. RADIATION EXPOSURE: A-plane 570.5 mGy, B-plane 398.1 mGy MATERIALS: Micropuncture set, .035 3J guidewire,.035angle-tippedhydrophilic guidewire, 5 Fr Glidesheath, 5 Fr Envoy MPC guide catheter, Torcon NBAdvantage 5 Fr STEVO selective catheter, [place] SL-10 microcatheter, [id number], 250 micron Embozene- 1 vial, 6 Belgian Angio-Seal. DESCRIPTION: The procedure, its risks and benefits were discussed withthe patient and written informed consent was obtained. The patient was broughtto the angiography suite and received moderate sedation. The right groinwas sterilely prepped and draped. The right femoral artery was accessed usingthe micropuncture set and the 5 Fr sheath placed. The guide catheter was placed in the descending aorta, double-flushed,and connected to continuous heparinized saline infusion. The catheter wasplaced in the left internal carotid artery using roadmap guidance and thehydrophilic guidewire. Biplane cerebral angiogram was performed. The catheter wasthen placed in the right external carotid artery and biplane angiogramperformed. The guide catheter was directed to the left external carotid artery. The microcatheter was advanced to the left middle meningeal artery usingroadmap guidance and the microwire. Hand-injected microcatheter angiogram wasperformed. The microcatheter was advanced to the frontal division of the leftmedial meningeal artery. The artery was embolized using 250 micron Embozeneparticles. Stasis was confirmed with hand-injected microcatheter injection. The microcatheter was removed. Post-embolization angiogram of the leftcommon carotid artery was performed. The guide catheter was removed The 5 Belgian Kalyan catheter was then placed in the descending aorta,flushed, and connected to a continuous heparinized saline infusion. This catheterwas sequentially directed to the right internal carotid, right externalcarotid, right vertebral, and left vertebral arteries. Biplane cerebral angiogramswere obtained from each position. The catheter was removed. Sheath was removed. Femoral artery roadmap was performed. The 5 Fr Mynx closure device was used to achieve hemostasis.The patient tolerated the procedure well . No immediate complications FINDINGS: LEFT COMMON CAROTID ARTERY ROADMAP INJECTION: Common carotid, internaland external carotid are normal in appearance without focal narrowing. LEFT INTERNAL CAROTID ARTERY INJECTION: There is mass effect over theleft cerebral convexity, consistent with the known subdural hematoma. The ICAand its branches are of normal course and caliber. There is opacification of the ophthalmic artery and presence of a choroidal blush. LEFT EXTERNAL CAROTID ARTERY INJECTION: There are two small foci ofprominent contrast blush or even extravasation from branches of the frontoparietalbranch of the left middle meningeal artery. There is rapid arteriovenous shuntingfrom a fistula along the lateral aspect of the left occipital lobe. Arterialsupply is primarily from the occipital artery, through numerous small branches toa cortical vein that drains cephalad to the superior sagittal sinus and tothe left vein of Michael. There is only mild stenosis in the draining veins. Left MIDDLE MENINGEAL ARTERY INJECTION: There is also supply from thesquamous branch of the left middle meningeal artery to the arteriovenous fistula.The site of prominent blush/extravasation from the frontoparietal branches ofthe middle meningeal artery is again demonstrated. No communication to theorbit or ophthalmic artery is evident. LEFT FRONTOPARIETAL BRANCH OF THE MIDDLE MENINGEAL ARTERY INJECTION: No communication to the orbit or ophthalmic artery is evident there isocclusion of this branch after the administration of the particles. LEFT EXTERNAL CAROTID ARTERY INJECTION (POST EMBOLIZATION): There isocclusion of the frontoparietal branches of the middle meningeal artery. Thesquamosal branch with opacification of the dural fistula is unchanged. Choroidalblush remains present LEFT COMMON CAROTID ARTERY INJECTION (POST EMBOLIZATION): The internalcarotid artery and its branches are unchanged in course and caliber. RIGHT CAROTID ROADMAP: The carotid bifurcation is of normal appearancewithout focal stenosis RIGHT INTERNAL CAROTID ARTERY INJECTION: The ICA and its branches are ofnormal course and caliber. There is no supply to the arteriovenous fistula. RIGHT EXTERNAL CAROTID ARTERY INJECTION: External carotid and branchesare normal in appearance. There is no supply to the arteriovenous fistula.RIGHT FEMORAL ARTERY ROADMAP: The right common femoral artery is withoutstenosis. Right vertebral artery injection: The vertebral artery and its branchesare of normal course and caliber with the exception of mild atherosclerotic irregularity of the basilar artery. There is little reflux to the leftvertebral artery and no opacification of the arteriovenous fistula. Left vertebral artery injection: The left vertebral artery is of normal appearance. There is only a small segment beyond the posterior inferior cerebellar artery. There is no opacification of the arteriovenousfistula IMPRESSION 1. Focal prominent dural blush versus active extravasation from branchesof the left middle meningeal artery. 2. Particle embolization of the frontoparietal branch to the of the leftmiddle meningeal artery. 3. 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 Forquestions regarding this report, please contact the number below. Electronically signed by: Hussain Christianson [facility]([phone]), at 11/10/2019 10:28 AM Casey Singh MD IMG IR ORDERABLES * (ABNORMAL) BLOOD GAS 2 ARTERIAL (11/03/2019 3:04 PM EDT) pH, Arterial 7.41 7.35 - 7.45 [facility] PCO2, Arterial 34(L) 35 - 45 mmHg [facility] PO2, Arterial 218(H) 85 - 104 mmHg [facility] Bicarbonate, Arterial 21.7 20.0 - 26.0 mmol/L [facility] Base Excess, Arterial -3.1(L) -3.0 - 3.0 mmol/L [facility] Hgb Blood Gas 14.1 13.7 - 16.5 gm/dL [facility] Oxyhemoglobin, Arterial 98.3(H) 94.0 - 97.0 % [facility] Carboxyhemoglob in, Arterial 1.0 % [facility] Comment: Nonsmokers: 0.5-1.5% COHB Smokers: Variable, but usually less than 10% Toxic: 20-30% COHB Lethal: Greater than 60% COHB Methemoglobin, Arterial 0.3 <=1.5 % [facility] Na Whole Blood 138 135 - 145 mmol/L [facility] K Whole Blood 3.8 3.5 - 5.0 mmol/L [facility] Comment: Please note: Patients with WBC >100,000 may have falsely elevated Potassium levels. Contact the Clinical Chemistry Laboratory if there are any questions. ICa Whole Blood 1.17 1.15 - 1.33 mmol/L [facility] Comment: Note: ??Total bilirubin higher than 20 mg/dL may lead to falsely low ionized calcium. CL Whole Blood 110(H) 98 - 107 mmol/L [facility] Gluc Whole Bld 84 65 - 199 mg/dL [facility] Comment:Diabetes: >=200 mg/d L plus symptoms. Lactate WB 1.3 0.5 - 2.2 mmol/L [facility] Temp Art 36.1 Celsius [facility] Blood specimen (specimen) 11/03/2019 3:04 PM EDT 11/03/2019 3:04 PM EDT Casey Singh MD POINT OF CARE TEST Sandi SANDOVAL Performing Organization Address [facility]/ZIP Co de Phone Number [facility] [place] [address] * POCT Glucose (11/03/2019 12:13 PM EDT) Glucose, POC 92 65 - 199 mg/dL [facility] Comment: Supplemental ranges: <140 mg/dL before meals <180 mg/dL all other times of the day Blood specimen (specimen) 11/03/2019 12:13 PM EDT 11/03/2019 12:13 PM EDT Casey Singh MD POINT OF CARE TEST O LORI [facility] [place] [address] * POCT Glucose (11/03/2019 8:24 AM EDT) Glucose, POC 113 65 - 199 mg/dL [facility] Comment: Supplemental ranges: <140 mg/dL before meals <180 mg/dL all other times of the day Blood specimen (specimen) 11/03/2019 8:24 AM EDT 11/03/2019 8:24 AM EDT Casey Singh MD POINT OF CARE TEST O RDERABLES [facility] [place] [address] * Differential, Automated (11/03/2019 5:26 AM EDT) Neutrophil % 59.6 % [facility] Neutrophil Absolute 4.42 1.70 - 6.10 x10(3)/[facility] Lymph % 25.9 % [facility] Lymphocytes Abs 1.9 0.9 - 3.2 x10(3)/[facility] Monocyte % 8.2 % [facility] Monocyte Abs 0.6 0.3 - 0.9 x10(3)/[facility] Eos % 5.1 % [facility] Eosinophils Abs 0.4 0.0 - 0.4 x10(3)/[facility] Basophil % 0.9 % [facility] Baso Absolute 0.1 0.0 - 0.1 x10(3)/[facility] Immature Gran % 0.30 % [facility] Comment: Immature granulocytes(IG's)percentage and absolute count will include metamyelocytes, myelocytes, and promyelocytes. Blood smears from CBCs yielding IG's will be scanned manually for concordance. If this scan disagrees with the automated IG or if promyelocytes are noted, a manual differential will be performed. Immature Gran Absolute 0.02 0.00 - 0.04 x10(3)/[facility] Blood specimen (specimen) 11/03/2019 5:26 AM EDT 11/03/2019 5:43 AM EDT Narrative Resulting Agency Comment Spec In Lab Maty Mcfadden SPECIMEN TECHNICIAN HEMATOLOGY ORDERABLE S [facility] [place] [address] * (ABNORMAL) Hemogram (11/03/2019 5:26 AM EDT) White Blood Cell 7.4 4.0 - 9.5 x10(3)/mc L [facility] Red Blood Cell 4.46(L) 4.58 - 5.54 x10(6)/mc L [facility] Hemoglobin 13.7 13.7 - 16.5 gm/dL [facility] Hematocrit 41.8 40.5 - 48.5 % [facility] Mean Cell Volume 93.7(H) 82.9 - 93.1 fL [facility] Mean Cell Hemoglobin 30.7 27.5 - 32.1 pg [facility] Mean Cell Hemoglobin Concentration 32.8 32.0 - 35.7 gm/dL [facility] Platelet 187 145 - 357 x10(3)/mc L [facility] RDW Standard Deviation 44.2 36.0 - 45.0 [facility] RDW coefficient of variation 12.8 11.4 - 13.8 % [facility] Mean Platelet Volume 10.2 7.6 - 12.9 [facility] NRBC% auto 0.0 % [facility] NRBC Absolute 0.000 0.000 - 0.000 x10(3)/mc L [facility] Blood specimen (specimen) 11/03/2019 5:26 AM EDT 11/03/2019 5:43 AM EDT Narrative Resulting Agency Comment Spec In Lab Maty Mcfadden SPECIMEN TECHNICIAN HEMATOLOGY ORDERABLE S [facility] [place] [address] * Basic Metabolic Panel (non-fasting) (11/03/2019 5:26 AM EDT) Glucose 104 65 - 199 mg/dL [facility] Comment:Diabetes: >=200 mg/d L plus symptoms Blood Urea Nitrogen 13 10 - 20 mg/dL [facility] Creatinine 0.99 0.80 - 1.50 mg/dL [facility] Sodium 140 135 - 145 mmol/L [facility] Potassium 4.3 3.5 - 5.0 mmol/L [facility] Comment: Please note: ??Patients with WBC >100,000 may have falsely elevated Potassium levels. ??For accurate Potassium quantification in these patients send serum separator tube (gold top) for subsequent determinations. ??Contact the Clinical Chemistry Laboratory if there are any questions. Chloride 106 98 - 107 mmol/L [facility] Carbon Dioxide 24 22 - 31 mmol/L [facility] Anion Gap 10 5 - 15 mmol/L [facility] Calcium 8.7 8.5 - 10.5 mg/dL [facility] Est Glomerular Filtration Rate 75 >=60 mL/min/1. 73 m?? [facility] Comment: The eGFR was calculated using the CKD-EPI equation. As with all creatinine based estimates of kidney function, eGFR values calculated with the CKD-EPI equation are not accurate in patients with acute kidney failure, extremes of body mass or the acutely ill. [email or web address]/[facility] eGFR 87 >=60 mL/min/1. 73 m?? [facility] Comment: The eGFR was calculated using the CKD-EPI equation. As with all creatinine based estimates of kidney function, eGFR values calculated with the CKD-EPI equation are not accurate in patients with acute kidney failure, extremes of body mass or the acutely ill. [email or web address]/[facility]AN[facility] Blood specimen (specimen) 11/03/2019 5:26 AM EDT 11/03/2019 5:43 AM EDT Narrative Resulting Agency Comment Spec In Lab Casey Singh MD CHEMISTRY ORDERABLES [facility] [place] [address] * (ABNORMAL) Hemogram (11/02/2019 11:03 PM EDT) [facility] White Blood Cell 8.6 4.0 - 9.5 x10(3)/[facility] Red Blood Cell 4.29(L) 4.58 - 5.54 x10(6)/[facility] Hemoglobin 13.2(L) 13.7 - 16.5 gm/dL [facility] Hematocrit 40.2(L) 40.5 - 48.5 % [facility] Mean Cell Volume 93.7(H) 82.9 - 93.1 [facility] Mean Cell Hemoglobin 30.8 27.5 - 32.1 pg [facility] Mean Cell Hemoglobin Concentration 32.8 32.0 - 35.7 gm/dL [facility] Platelet 177 145 - 357 x10(3)/[facility] RDW Standard Deviation 44.3 36.0 - 45.0 [facility] RDW coefficient of variation 13.0 11.4 - 13.8 % [facility] Mean Platelet Volume 10.1 7.6 - 12.9 [facility] NRBC% auto 0.0 % [facility] NRBC Absolute 0.000 0.000 - 0.000 x10(3)/[facility] Blood specimen (specimen) 11/02/2019 11:03 PM EDT 11/02/2019 11:07 PM EDT Narrative Resulting Agency Comment Spec In Lab Maty Mcfadden APRN HEMATOLOGY ORDERABLE S [facility] [place] [address] * APTT (11/02/2019 11:03 PM EDT) Partial Thromboplastin Time 31 25 - 37 sec [facility] Comment: The PTT is NOT appropriate for heparin monitoring. Use the Anti-Xa level for heparin monitoring (HEP UFH) or LMWH monitoring (HEP LMW). A PTT less than 37 seconds generally indicates adequate hemostasis. Blood specimen (specimen) 11/02/2019 11:03 PM EDT 11/02/2019 11:07 PM EDT Narrative Resulting Agency Comment Spec In Lab Maty Mcfadden SPECIMEN TECHNICIAN HEMATOLOGY ORDERABLE S Performing Organization Address [facility] Co de Phone Number [facility] [place] [address] * Prothrombin Time (11/02/2019 11:03 PM EDT) Prothrombin Time 11.4 9.4 - 12.5 sec [facility] International Normalization Ratio 1.0 [facility] Comment: An INR <2.0 indicates adequate procoagulant activity for hemostasis in most patients without underlying bleeding disorders, though the INR may not adequately reflect hemostatic capacity in patients with liver disease and synthetic impairment. The recommended target INR range for therapeutic anticoagulation is 2.0 ? 3.0 for most applications, though lower and higher ranges may be appropriate depending on clinical circumstances. Blood specimen (specimen) 11/02/2019 11:03 PM EDT 11/02/2019 11:07 PM EDT Narrative Resulting Agency Comment Spec In Lab Maty Mcfadden SPECIMEN TECHNICIAN HEMATOLOGY ORDERABLE S Performing Organization Address [facility] Co de Phone Number [facility] [place] [address] * CT Head wo Contrast (Generic) (11/02/2019 9:57 PM EDT) Anatomical Region Laterality Modality Head Computed Tomogra phy Impressions 11/02/2019 11:39 PM EDT Minimally decreased size of the left holohemispheric subdural hemorrhage, but with unchanged 10 mm left to right midline shift. No uncal herniation. This represents a change from the preliminary report. Changes and final impression discussed with Maty Mcfadden APRN by Dr. Murry on 11/02/2019 at 1055 PM . I have personally reviewed the image(s) and the resident's interpretation and agree with the findings, Myrtle Rowan at 11/02/2019 11:39 PM Thank you for letting us participate in the care of this patient. For questions regarding this report, please contact the number below. ? Electronically signed by: Myrtle Rowan [facility] ([phone]), at 11/02/2019 11:39 PM Narrative 11/02/2019 11:39 PM EDT EXAMINATION: CT HEAD WO CONTRAST (GENERIC) CLINICAL HISTORY: Headache, intracranial hemorrhage suspected s/p SEPS drain insertion TECHNIQUE: CT head performed without intravenous contrast administration. COMPARISON: Head CT from 1356 hours, 11/01/2019 FINDINGS: There is been interval placement of a left frontal approach SEPS with tip within the heterogeneous left holohemispheric subdural hemorrhage. Overall size of the subdural hemorrhage is minimally decreased from prior study, with collection measuring approximately 2.7 cm, previously 3.1 cm. There has been some interval redistribution of the hyperdense components within the heterogeneous collection. There are new serpiginous hyperdensities within the underlying left frontal lobe also along the parasagittal sulci, compatible with trace subarachnoid hemorrhage. Trace hemorrhage layering along the posterior falx and tentorium is again noted. Overall mass effect on the left cerebral convexity is not significantly changed, with grossly unchanged 10 mm left to right midline shift. No uncal herniation. Partial effacement of the left lateral ventricle. The suprasellar and basal cisterns are patent. Ann-white differentiation is normal. Procedure Note Myrtle Rowan MD - 11/02/2019 EXAMINATION: CT HEAD WO CONTRAST (GENERIC) CLINICAL HISTORY: Headache, intracranial hemorrhage suspected s/p SEPS drain insertion TECHNIQUE: CT head performed without intravenous contrast administration. COMPARISON: Head CT from 1356 hours, 11/01/2019 FINDINGS: There is been interval placement of a left frontal approach SEPS with tipwithin the heterogeneous left holohemispheric subdural hemorrhage. Overall sizeof the subdural hemorrhage is minimally decreased from prior study, withcollection measuring approximately 2.7 cm, previously 3.1 cm. There has been someinterval redistribution of the hyperdense components within the heterogeneouscollection. There are new serpiginous hyperdensities within the underlying leftfrontal lobe also along the parasagittal sulci, compatible with trace subarachnoid hemorrhage. Trace hemorrhage layering along the posterior falx andtentorium is again noted. Overall mass effect on the left cerebral convexity is not significantly changed, with grossly unchanged 10 mm left to right midlineshift. No uncal herniation. Partial effacement of the left lateral ventricle.The suprasellar and basal cisterns are patent. Ann-white differentiation isnormal. IMPRESSION Minimally decreased size of the left holohemispheric subdural hemorrhage,but with unchanged 10 mm left to right midline shift. No uncal herniation. This represents a change from the preliminary report. Changes and final impression discussed with Maty Mcfadden APRN by Dr. Antonio 11/02/2019 at 1055 PM . I have personally reviewed the image(s) and the resident's interpretationand agree with the findings, Myrtle Rowan at 11/02/2019 11:39 PM Thank you for letting us participate in the care of this patient. Forquestions regarding this report, please contact the number below. Maty Mcfadden APRN IMG CT ORDERABLES * POCT Glucose (11/02/2019 7:49 PM EDT) [facility] Signature Glucose, POC 133 65 - 199 mg/dL [facility] Comment: Supplemental ranges: <140 mg/dL before meals <180 mg/dL all other times of the day Blood specimen (specimen) 11/02/2019 7:49 PM EDT 11/02/2019 7:49 PM EDT Casey Singh MD POINT OF CARE TEST O LORI Performing Organization Address [facility] Co de Phone Number [facility] [place] [address] * POCT Glucose (11/02/2019 5:06 PM EDT) Glucose, POC 98 65 - 199 mg/dL [facility] Comment: Supplemental ranges: <140 mg/dL before meals <180 mg/dL all other times of the day Blood specimen (specimen) 11/02/2019 5:06 PM EDT 11/02/2019 5:06 PM EDT Casey Singh MD POINT OF CARE TEST O LORI Performing Organization Address [facility] Co de Phone Number [facility] [place] [address] * POCT Glucose (11/02/2019 12:31 PM EDT) Glucose, POC 111 65 - 199 mg/dL [facility] Comment: Supplemental ranges: <140 mg/dL before meals <180 mg/dL all other times of the day Blood specimen (specimen) 11/02/2019 12:31 PM EDT 11/02/2019 12:31 PM EDT Casey Singh MD POINT OF CARE TEST O LORI Performing Organization Address [facility] Co de Phone Number [facility] [place] [address] * POCT Glucose (11/02/2019 8:06 AM EDT) Glucose, POC 99 65 - 199 mg/dL [facility] Comment: Supplemental ranges: <140 mg/dL before meals <180 mg/dL all other times of the day Blood specimen (specimen) 11/02/2019 8:06 AM EDT 11/02/2019 8:06 AM EDT Casey Singh MD POINT OF CARE TEST O RDERABLES [facility] [place] [address] * Differential, Automated (11/02/2019 1:01 AM EDT) Neutrophil % 54.8 % [facility] Neutrophil Absolute 4.21 1.70 - 6.10 x10(3)/[facility] Lymph % 29.7 % [facility] Lymphocytes Abs 2.3 0.9 - 3.2 x10(3)/[facility] Monocyte % 9.0 % [facility] Monocyte Abs 0.7 0.3 - 0.9 x10(3)/[facility] Eos % 5.2 % [facility] Eosinophils Abs 0.4 0.0 - 0.4 x10(3)/[facility] Basophil % 1.0 % [facility] Baso Absolute 0.1 0.0 - 0.1 x10(3)/[facility] Immature Gran % 0.30 % [facility] Comment: Immature granulocytes(IG's)percentage and absolute count will include metamyelocytes, myelocytes, and promyelocytes. Blood smears from CBCs yielding IG's will be scanned manually for concordance. If this scan disagrees with the automated IG or if promyelocytes are noted, a manual differential will be performed. Immature Gran Absolute 0.02 0.00 - 0.04 x10(3)/[facility] Blood specimen (specimen) 11/02/2019 1:01 AM EDT 11/02/2019 1:14 AM EDT Narrative Resulting Agency Comment Spec In Lab Maty Mcfadden SPECIMEN TECHNICIAN HEMATOLOGY ORDERABLE S [facility] [place] [address] * (ABNORMAL) Hemogram (11/02/2019 1:01 AM EDT) [facility] White Blood Cell 7.7 4.0 - 9.5 x10(3)/[facility] Red Blood Cell 4.36(L) 4.58 - 5.54 x10(6)/[facility] Hemoglobin 13.6(L) 13.7 - 16.5 gm/dL [facility] Hematocrit 40.6 40.5 - 48.5 % [facility] Mean Cell Volume 93.1 82.9 - 93.1 [facility] Mean Cell Hemoglobin 31.2 27.5 - 32.1 pg [facility] Mean Cell Hemoglobin Concentration 33.5 32.0 - 35.7 gm/dL [facility] Platelet 176 145 - 357 x10(3)/[facility] RDW Standard Deviation 43.7 36.0 - 45.0 [facility] RDW coefficient of variation 12.7 11.4 - 13.8 % [facility] Mean Platelet Volume 10.2 7.6 - 12.9 [facility] NRBC% auto 0.0 % [facility] NRBC Absolute 0.000 0.000 - 0.000 x10(3)/[facility] Blood specimen (specimen) 11/02/2019 1:01 AM EDT 11/02/2019 1:14 AM EDT Narrative Resulting Agency Comment Spec In Lab Maty Mcfadden APRN HEMATOLOGY ORDERABLE S [facility] [place] [address] * Basic Metabolic Panel (non-fasting) (11/02/2019 1:01 AM EDT) [facility] Glucose 88 65 - 199 mg/dL [facility] Comment:Diabetes: >=200 mg/d L plus symptoms Blood Urea Nitrogen 12 10 - 20 mg/dL [facility] Creatinine 1.12 0.80 - 1.50 mg/dL [facility] Sodium 141 135 - 145 mmol/L [facility] Potassium 4.0 3.5 - 5.0 mmol/L [facility] Comment: Please note: ??Patients with WBC >100,000 may have falsely elevated Potassium levels. ??For accurate Potassium quantification in these patients send serum separator tube (gold top) for subsequent determinations. ??Contact the Clinical Chemistry Laboratory if there are any questions. Chloride 107 98 - 107 mmol/L [facility] Carbon Dioxide 26 22 - 31 mmol/L [facility] Anion Gap 8 5 - 15 mmol/L [facility] Calcium 9.1 8.5 - 10.5 mg/dL [facility] Est Glomerular Filtration Rate 65 >=60 mL/min/1. 73 m?? [facility] Comment: The eGFR was calculated using the CKD-EPI equation. As with all creatinine based estimates of kidney function, eGFR values calculated with the CKD-EPI equation are not accurate in patients with acute kidney failure, extremes of body mass or the acutely ill. http://[employer]/[facility] eGFR 75 >=60 mL/min/1. 73 m?? [facility] Comment: The eGFR was calculated using the CKD-EPI equation. As with all creatinine based estimates of kidney function, eGFR values calculated with the CKD-EPI equation are not accurate in patients with acute kidney failure, extremes of body mass or the acutely ill. [email or web address]/DHnkf Blood specimen (specimen) 11/02/2019 1:01 AM EDT 11/02/2019 1:14 AM EDT Narrative Resulting Agency Comment Spec In Lab Casey Singh MD CHEMISTRY ORDERABLES [facility] [place] [address] * COVID-19 PCR (11/01/2019 11:17 PM EDT) SARS-CoV-2 RNA (Rapid) Not Detected Not Detected [facility] Comment: This result should be interpreted in combination with the clinical observations, patient history and epidemiological information. For testing of asymptomatic individuals, assay performance characteristics and clinical utility have not been evaluated. Testing for SARS-CoV-2 (Severe acute respiratory syndrome coronavirus 2, formerly known as 2019 novel coronavirus or 2019-nCoV) to aid in the diagnosis of COVID-19 is performed using the Simplexa COVID-19 Direct Assay by [employer] as authorized by the FDA issued Emergency Use Authorization (EUA). This assay is intended for In-vitro Diagnostic (IVD) use with nasopharyngeal swabs collected from individuals meeting the CDC criteria for testing. The assay is performed based on the instructions for use and additional guidance provided by the FDA. Testing is performed in the Microbiology Laboratory within the Department of Pathology and Laboratory Medicine at [facility], certified under the Clinical Laboratory Improvement Amendments of 1988 (CLIA), 42 U.S.C. section 263a, to perform high complexity tests. Assay performance has been verified according to clinical laboratory regulatory requirements. Test results are provided above. A result of Not Detected indicates that the viral RNA target is not present but does not preclude SARS-CoV-2 infection. False negative results may occur if a specimen is improperly collected, transported or handled; if amplification inhibitors are present; or if inadequate numbers of viral particles are present in the specimen. A result of Detected suggests a current or recent infection and the patient is presumed to be infected. Positive and negative predictive values for this test are highly dependent on disease prevalence. A result of Invalid indicates the inability to conclusively determine the presence or absence of SARS-CoV-2 RNA in the sample which can be due to a variety of factors. Recollection is recommended in the case of an invalid result. CDC COVID-19 criteria for testing on human specimens and clinical management guidance information are available at the CDC Coronavirus Disease 2019 (COVID-19) webpage under Information for Healthcare Professionals (https://www.cdc.gov/coronavirus/2019-ncov/hcp/index.html). SARS-CoV-2 Source MANAGER DENTAL Swab [facility] Nasopharyngeal swab (specimen) 11/01/2019 11:17 PM EDT 11/02/2019 12:04 AM EDT Comment:Symptoms->Surveillan ce Narrative Resulting Agency Comment Spec In Lab Camila Troy MD MICROBIOLOGY - GEN ERAL ORDERABLES Performing Organization Address City/[facility]/ZIP Co de Phone Number [facility] [place] [address] * ABORH Recheck Status (11/01/2019 9:14 PM EDT) ABORH Recheck Order Order Placed [facility] ABORH Type Recheck Complete [facility] Blood specimen (specimen) 11/01/2019 9:14 PM EDT 11/01/2019 9:30 PM EDT Narrative Resulting Agency Comment Spec In Lab Maty A Bogdan SPECIMEN TECHNICIAN BLOOD BANK LAB ORDER EMILIANO Performing Organization Address City/[facility]/ZIP Co de Phone Number [facility] [place] [address] * Antibody screen (11/01/2019 9:14 PM EDT) Ab Screen Interp Negative [facility] Expires at [id number] on: 11/04/2019 [facility] Blood specimen (specimen) 11/01/2019 9:14 PM EDT 11/01/2019 9:30 PM EDT Narrative Resulting Agency Comment Spec In Lab Maty A Bogdan SPECIMEN TECHNICIAN BLOOD BANK LAB ORDER EMILIANO [facility] [place] [address] * ABO/Rh Typing (11/01/2019 9:14 PM EDT) ABORH Type B Pos [facility] Blood specimen (specimen) 11/01/2019 9:14 PM EDT 11/01/2019 9:30 PM EDT Narrative Resulting Agency Comment Spec In Lab Maty Mcfadden APRN BLOOD BANK LAB ORDER EMILIANO Performing Organization Address City/[facility]/ZIP Co de Phone Number [facility] [place] [address] * Gold Tube HOLD (11/01/2019 9:14 PM EDT) Pathologist [facility] Gold Hold Sample in lab. [facility] Blood specimen (specimen) Venous Draw / Unknown 11/01/2019 9:14 PM EDT 11/01/2019 9:30 PM EDT Maty Mcfadden SPECIMEN TECHNICIAN CHEMISTRY ORDERABLES Performing Organization Address [facility] Co de Phone Number [facility] [place] [address] * Differential, Automated (11/01/2019 9:14 PM EDT) [facility] Neutrophil % 49.4 % [facility] Neutrophil Absolute 3.05 1.70 - 6.10 x10(3)/[facility] Lymph % 35.6 % [facility] Lymphocytes Abs 2.2 0.9 - 3.2 x10(3)/[facility] Monocyte % 8.8 % [facility] Monocyte Abs 0.5 0.3 - 0.9 x10(3)/[facility] Eos % 4.9 % [facility] Eosinophils Abs 0.3 0.0 - 0.4 x10(3)/[facility] Basophil % 1.1 % [facility] Baso Absolute 0.1 0.0 - 0.1 x10(3)/[facility] Immature Gran % 0.20 % [facility] Comment: Immature granulocytes(IG's)percentage and absolute count will include metamyelocytes, myelocytes, and promyelocytes. Blood smears from CBCs yielding IG's will be scanned manually for concordance. If this scan disagrees with the automated IG or if promyelocytes are noted, a manual differential will be performed. Immature Gran Absolute 0.01 0.00 - 0.04 x10(3)/[facility] Blood specimen (specimen) 11/01/2019 9:14 PM EDT 11/01/2019 9:29 PM EDT Narrative Resulting Agency Comment Spec In Lab Maty Mcfadden APRN HEMATOLOGY ORDERABLE S [facility] [place] [address] * (ABNORMAL) Hemogram (11/01/2019 9:14 PM EDT) White Blood Cell 6.2 4.0 - 9.5 x10(3)/[facility] Red Blood Cell 4.51(L) 4.58 - 5.54 x10(6)/ L [facility] Hemoglobin 13.6(L) 13.7 - 16.5 gm/dL [facility] Hematocrit 41.5 40.5 - 48.5 % [facility] Mean Cell Volume 92.0 82.9 - 93.1 [facility] Mean Cell Hemoglobin 30.2 27.5 - 32.1 pg [facility] Mean Cell Hemoglobin Concentration 32.8 32.0 - 35.7 gm/dL [facility] Platelet 185 145 - 357 x10(3)/[facility] RDW Standard Deviation 43.5 36.0 - 45.0 [facility] RDW coefficient of variation 12.8 11.4 - 13.8 % [facility] Mean Platelet Volume 10.4 7.6 - 12.9 [facility] NRBC% auto 0.0 % [facility] NRBC Absolute 0.000 0.000 - 0.000 x10(3)/[facility] Blood specimen (specimen) 11/01/2019 9:14 PM EDT 11/01/2019 9:29 PM EDT Narrative Resulting Agency Comment Spec In Lab Maty Mcfadden SPECIMEN TECHNICIAN HEMATOLOGY ORDERABLE S Performing Organization Address [facility] de Phone Number [facility] [place] [address] * APTT (11/01/2019 9:14 PM EDT) Partial Thromboplastin Time 30 25 - 37 sec [facility] Comment: The PTT is NOT appropriate for heparin monitoring. Use the Anti-Xa level for heparin monitoring (HEP UFH) or LMWH monitoring (HEP LMW). A PTT less than 37 seconds generally indicates adequate hemostasis. Blood specimen (specimen) 11/01/2019 9:14 PM EDT 11/01/2019 9:29 PM EDT Narrative Resulting Agency Comment Spec In Lab Maty Mcfadden SPECIMEN TECHNICIAN HEMATOLOGY ORDERABLE S Performing Organization Address [facility] de Phone Number [facility] [place] [address] * Prothrombin Time (11/01/2019 9:14 PM EDT) Prothrombin Time 12.4 9.4 - 12.5 sec [facility] International Normalization Ratio 1.1 [facility] Comment: An INR <2.0 indicates adequate procoagulant activity for hemostasis in most patients without underlying bleeding disorders, though the INR may not adequately reflect hemostatic capacity in patients with liver disease and synthetic impairment. The recommended target INR range for therapeutic anticoagulation is 2.0 ? 3.0 for most applications, though lower and higher ranges may be appropriate depending on clinical circumstances. Blood specimen (specimen) 11/01/2019 9:14 PM EDT 11/01/2019 9:29 PM EDT Narrative Resulting Agency Comment Spec In Lab Maty Gaffneyinn SPECIMEN TECHNICIAN HEMATOLOGY ORDERABLE S [facility] [place] [address] * Basic Metabolic Panel (non-fasting) (11/01/2019 9:14 PM EDT) Glucose 87 65 - 199 mg/dL [facility] Comment:Diabetes: >=200 mg/d L plus symptoms Blood Urea Nitrogen 14 10 - 20 mg/dL [facility] Creatinine 0.92 0.80 - 1.50 mg/dL [facility] Sodium 138 135 - 145 mmol/L [facility] Potassium 3.9 3.5 - 5.0 mmol/L [facility] Comment: Please note: ??Patients with WBC >100,000 may have falsely elevated Potassium levels. ??For accurate Potassium quantification in these patients send serum separator tube (gold top) for subsequent determinations. ??Contact the Clinical Chemistry Laboratory if there are any questions. Chloride 103 98 - 107 mmol/L [facility] Carbon Dioxide 23 22 - 31 mmol/L [facility] Anion Gap 12 5 - 15 mmol/L [facility] Calcium 9.2 8.5 - 10.5 mg/dL [facility] Est Glomerular Filtration Rate 82 >=60 mL/min/1. 73 m?? [facility] Comment: The eGFR was calculated using the CKD-EPI equation. As with all creatinine based estimates of kidney function, eGFR values calculated with the CKD-EPI equation are not accurate in patients with acute kidney failure, extremes of body mass or the acutely ill. http://[employer]/[facility]AN[facility] eGFR 95 >=60 mL/min/1. 73 m?? [facility] Comment: The eGFR was calculated using the CKD-EPI equation. As with all creatinine based estimates of kidney function, eGFR values calculated with the CKD-EPI equation are not accurate in patients with acute kidney failure, extremes of body mass or the acutely ill. http://[email or web address]/[facility]nkf Blood specimen (specimen) 11/01/2019 9:14 PM EDT 11/01/2019 9:29 PM EDT Narrative Resulting Agency Comment Spec In Lab Maty Mcfadden APRN CHEMISTRY ORDERABLES Performing Organization Address [facility]/ZIP Co de Phone Number [facility] [place] [address] * Film Library- Storage Only DX Chest (11/01/2019 8:28 PM EDT) Narrative [facility] - 11/01/2019 8:28 PM EDT This exam is auto-finalizing. It's purpose is for storage only. Casey Singh MD IMG FILM LIBRARY ORD ERABLES Performing Organization Address [facility] Co de Phone Number [place], [place] documented in this encounter Visit Diagnoses Diagnosis Subdural hemorrhage SDH (subdural hematoma) Subdural hemorrhage SDH (subdural hematoma) Subdural hemorrhage SDH (subdural hematoma) Subdural hemorrhage documented in this encounter Admitting Diagnoses Diagnosis SDH (subdural hematoma) Subdural hemorrhage documented in this encounter Administered Medications Inactive Administered Medications - up to 3 most recent administrations Medication Order MAR Action Action Date Dose Rate Site acetaminophen (Tylenol) suppository 650 mg 650 mg, Rectal, EVERY 4 HOURS PRN, Starting on Thu11/02/19 at 0024, Until Thu11/16/19 at 2010, Pain, Mild pain (1-3), Give per rectum (AK) if unable to take PO. Do not exceed 4000 mg acetaminophen per day., Routine acetaminophen (Tylenol) tablet 650 mg 650 mg, Oral, EVERY 4 HOURS PRN, Starting on Thu11/02/19 at 0024, Until Thu11/16/19 at 2010, Pain, Mild pain (1-3), Do not exceed 4000 mg acetaminophen per day., Routine Given 11/16/2019 5:35 PM EDT 650 mg Given 11/16/2019 12:16 PM EDT 650 mg Given 11/15/2019 9:00 AM EDT 650 mg bisacodyL (Dulcolax) suppository 10 mg 10 mg, Rectal, DAILY PRN, Starting on Thu11/04/19 at 0814, Until Thu11/16/19 at 2010, Constipation, Routine Given 11/15/2019 8:10 PM EDT 10 mg busPIRone (Buspar) tablet 7.5 mg 7.5 mg, Oral, 2 TIMES DAILY, First dose on Thu11/14/19 at 0415, Until Discontinued, Routine Given 11/16/2019 8:36 AM EDT 7.5 mg Given 11/15/2019 8:03 PM EDT 7.5 mg Given 11/15/2019 9:01 AM EDT 7.5 mg calcium carbonate (Tums) chewable tablet 500-1,000 mg 500-1,000 mg, Oral, EVERY 4 HOURS PRN, Starting on Thu11/04/19 at 0021, Until Thu11/16/19 at 2010, Heartburn, Give 500 mg (1 tablet) for mild to moderate heartburn. Give 1,000 mg (2 tablets) for severe heartburn., Routine Given 11/04/2019 4:25 PM EDT 1,000 mg Given 11/04/2019 10:59 AM EDT 500 mg ceFAZolin (ANCEF) 1g in dextrose 5% 50mL 1 g, Intravenous, EVERY 8 HOURS, 10 doses, First dose on Thu11/02/19 at 2000, Last dose on Thu11/05/19 at 2000, Administer over 30 Minutes, Indication for (Active or Suspected): Prophylaxis New Bag 11/03/2019 11:07 AM EDT 1 g 100 mL/hr New Bag 11/03/2019 4:01 AM EDT 1 g 100 mL/hr New Bag 11/02/2019 8:28 PM EDT 1 g 100 mL/hr ceFAZolin (Ancef) 2g in dextrose 5% 100 mL 2 g, Intravenous, ONCE, 1 dose, On Thu11/02/19 at 1100, Administer over 30 Minutes, For bedside procedure, Indication for (Active or Suspected): Prophylaxis Given 11/02/2019 10:45 AM EDT 2 g 200 mL /hr dextrose 10% infusion 250 mL, at 1,000 mL/hr, Intravenous, EVERY 30 MIN PRN, Starting on Thu11/02/19 at 0024, Until Thu11/16/19 at 2010, For BG 50-70 mg/dL: Oral treatment preferred:?? If able to drink, give 120 mL Juice or Regular (not diet) soda OR If NPO, give 15 gram glucose 40% oral gel massaged into buccal mucosa OR if unconscious or uncooperative, give 25 gram (250 mL) Dextrose 10% IV over 15 minutes per protocol OR, if no IV access, 1 mg Glucagon IM. For BG less than 50 mg/dL: Oral treatment preferred:?? If able to drink, give 240 mL Juice or Regular (not diet) soda OR If NPO, give 30 gram glucose 40% oral gel massaged in buccal mucosa OR if unconscious or uncooperative, give 25 gram (250 mL) Dextrose 10% IV over 15 minutes per protocol OR, if no IV access, 1 mg Glucagon IM. Recheck BG in 30 minutes. May repeat juice/soda, gel, dextrose or glucagon once per episode. For persistent hypoglycemia, consider longer-acting treatment for the duration of the active insulin. divalproex EC (Depakote) tablet 750 mg 750 mg, Oral, 3 TIMES DAILY, First dose on Thu11/15/19 at 1500, Until Discontinued, DO NOT SPLIT, CRUSH OR OPEN, Routine Given 11/16/2019 4:01 PM EDT 750 mg Given 11/16/2019 8:33 AM EDT 750 mg Given 11/15/2019 8:03 PM EDT 750 mg docusate sodium (Colace) capsule 100 mg 100 mg, Oral, 2 TIMES DAILY, First dose on Thu11/02/19 at 0115, Until Discontinued, Routine Given 11/04/2019 8:07 AM EDT 100 mg Given 11/03/2019 8:20 AM EDT 100 mg Given 11/02/2019 8:44 AM EDT 100 mg famotidine (Pepcid) tablet 20 mg 20 mg, Oral, 2 TIMES DAILY, First dose (after last modification) on Thu11/04/19 at 1730, Until Discontinued, Routine Given 11/04/2019 4:53 PM EDT 20 mg famotidine (Pepcid) tablet 20 mg 20 mg, Oral, ONCE, 1 dose, On Thu11/04/19 at 1930, Routine Given 11/04/2019 8:19 PM EDT 20 mg famotidine (Pepcid) tablet 40 mg 40 mg, Oral, 2 TIMES DAILY, First dose (after last modification) on Thu11/05/19 at 0900, Until Discontinued, Routine Given 11/16/2019 8:34 AM EDT 40 mg Given 11/15/2019 8:04 PM EDT 40 mg Given 11/15/2019 9:00 AM EDT 40 mg glucagon (human recombinant) injection SolR 1 mg 1 mg, Intramuscular, EVERY 30 MIN PRN, Starting on Thu11/02/19 at 0024, Until Thu11/16/19 at 2010, Low blood sugar, For BG 50-70 mg/dL: Oral treatment preferred:?? If able to drink, give 120 mL Juice or Regular (not diet) soda OR If NPO, give 15 gram glucose 40% oral gel massaged into buccal mucosa OR if unconscious or uncooperative, give 25 gram (250 mL) Dextrose 10% IV over 15 minutes per protocol OR, if no IV access, 1 mg Glucagon IM. For BG less than 50 mg/dL: Oral treatment preferred:?? If able to drink, give 240 mL Juice or Regular (not diet) soda OR If NPO, give 30 gram glucose 40% oral gel massaged in buccal mucosa OR if unconscious or uncooperative, give 25 gram (250 mL) Dextrose 10% IV over 15 minutes per protocol OR, if no IV access, 1 mg Glucagon IM. Recheck BG in 30 minutes. May repeat juice/soda, gel, dextrose or glucagon once per episode. For persistent hypoglycemia, consider longer-acting treatment for the duration of the active insulin., Routine glucose (GLUTOSE) 40% oral geL 15-30 g, Buccal, EVERY 30 MIN PRN, Starting on Thu11/02/19 at 0024, Until Thu11/16/19 at 2010, Low blood sugar, For BG 50-70 mg/dL: Oral treatment preferred:?? If able to drink, give 120 mL Juice or Regular (not diet) soda OR If NPO, give 15 gram glucose 40% oral gel massaged into buccal mucosa OR if unconscious or uncooperative, give 25 gram (250 mL) Dextrose 10% IV over 15 minutes per protocol OR, if no IV access, 1 mg Glucagon IM. For BG less than 50 mg/dL: Oral treatment preferred:?? If able to drink, give 240 mL Juice or Regular (not diet) soda OR If NPO, give 30 gram glucose 40% oral gel massaged in buccal mucosa OR if unconscious or uncooperative, give 25 gram (250 mL) Dextrose 10% IV over 15 minutes per protocol OR, if no IV access, 1 mg Glucagon IM. Recheck BG in 30 minutes. May repeat juice/soda, gel, dextrose or glucagon once per episode. For persistent hypoglycemia, consider longer-acting treatment for the duration of the active insulin. 1 tube contains 15 grams of glucose (net weight of tube = 37.5 grams., Routine hydrALAZINE (APRESOLINE) injection 10 mg 10 mg, Intravenous, EVERY 1 HOUR PRN, Starting on Thu11/02/19 at 0024, Until Thu11/16/19 at 2011, High Blood Pressure, Target systolic blood pressure (SBP) less than 160 mmHg. Administer 10 mg IV . May repeat once in 15 minutes if SBP greater than target BP (caution if HR greater than 90). Use if labetalol ineffective after 1 hour., Routine Given 11/14/2019 2:37 PM EDT 10 mg HYDROmorphone (DILAUDID) injection 0.2 mg 0.2 mg, Intravenous, ONCE, 1 dose, On Thu11/02/19 at 2115, STAT Given 11/02/2019 8:31 PM EDT 0.2 mg HYDROmorphone (DILAUDID) injection 0.2-0.4 mg 0.2-0.4 mg, Intravenous, EVERY 15 MIN PRN, Starting on Francisca 11/10/19 at 1412, Until Francisca 11/10/19 at 1525, Pain, Give 0.2 mg every 5 minutes PRN for mild to moderate pain (1-5) Give 0.4 mg every 5 minutes PRN for moderate to severe pain (6-10). Hold for respiratory rate less than 10 per minute. Maximum dose 4 mg over one hour. If multiple pain medications are ordered, start with hydromorphone or morphine and use fentanyl for breakthrough pain., PACU Recovery, Routine Given 11/10/2019 2:59 PM EDT 0.2 mg Given 11/10/2019 2:52 PM EDT 0.2 mg HYDROmorphone (DILAUDID) injection 0.3 mg 0.3 mg, Intravenous, ONCE, 1 dose, On Thu11/02/19 at 1130, For bedside procedure, administer at request of provider., Routine Given 11/02/2019 10:45 AM EDT 0.3 mg insulin lispro (HumaLOG) VIAL injection 1-5 Units 1-5 Units, Subcutaneous, 3 TIMES DAILY BEFORE MEALS, First dose on Thu11/02/19 at 0730, Until Discontinued, CORRECTION BOLUS [1-4 Units] Sensitive Sliding Scale: Correction factor 40 (1 unit of insulin is expected to drop the glucose 40 mg/dL) BG 160 - 200 Give 1 unit BG 201 - 240 Give 2 units BG 241 - 280 Give 3 units BG greater than 280, give 4 units and recheck BG in 2 hours. - If recheck BG is LESS than 280, give no insulin and resume schedule - If recheck BG is GREATER than 280, give 4 units and repeat BG in 2 hours (no more than 3 times) & call for new insulin orders. DO NOT hold if NPO, unless specifically told to do so. Per Blood Glucose Monitoring Policy, re-check a BG of > 240 in 2 hours., Routine Given 11/11/2019 12:27 PM EDT 1 Units iodixanoL (VISIPAQUE) 320 mg iodine/mL injection 300 mL 300 mL, Intra-arterial, ONCE, 1 dose, On Thu11/03/19 at 1745, Angio/IR (Intra-Procedure) Given 11/03/2019 5:45 PM EDT 100 mLs levETIRAcetam (KEPPRA) 1,000 mg in sodium chloride (ISO-OSM) 100 mL 1,000 mg (1 g), Intravenous, at 400 mL/hr, ONCE, 1 dose, On Thu11/01/19 at 2041, STAT Given 11/01/2019 8:52 PM EDT 1,000 mg 400 mL/hr levETIRAcetam (Keppra) tablet 500 mg 500 mg, Oral, 2 TIMES DAILY, First dose on Thu11/02/19 at 0900, Until Discontinued, Routine Given 11/11/2019 9:16 AM EDT 500 mg Given 11/10/2019 8:35 PM EDT 500 mg Given 11/10/2019 8:13 AM EDT 500 mg lidocaine ((GLYDO)) 2 % gel 1 dose, Starting on Thu11/03/19 at 1731, Until Thu11/03/19 at 1934, AMELIE MUNOZ: cabinet override Given 11/03/2019 7:34 PM EDT 5 mLs lidocaine (XYLOCAINE) 10 mg/mL (1 %) injection 100 mg 100 mg (10 mL), Subcutaneous, ONCE, 1 dose, On Thu11/13/19 at 1045, For bedside procedure, Routine Given 11/13/2019 10:15 AM EDT 100 mg lidocaine-EPINEPHrine 1 %-1:100,000 injection 1 mL 1 mL, Intradermal, ONCE, 1 dose, On Francisca 11/03/19 at 1100, For bedside procedure, administer at request of provider. Warning Vesicant/Irritant Medication Do not administer or Y-site with lactated ringers., Routine Given 11/03/2019 11:10 AM EDT 1 mL lidocaine-EPINEPHrine 1 %-1:100,000 injection 1 mL 1 mL, Intradermal, ONCE, 1 dose, On Thu11/07/19 at 1130, For bedside procedure, administer at request of provider. Warning Vesicant/Irritant Medication Do not administer or Y-site with lactated ringers., Routine Given 11/07/2019 11:19 AM EDT 1 mL lisinopriL (Prinivil;Zestril) tablet 5 mg 5 mg, Oral, DAILY, First dose on Thu11/02/19 at 0900, Until Discontinued, Routine Given 11/16/2019 8:34 AM EDT 5 mg Given 11/15/2019 9:00 AM EDT 5 mg Given 11/13/2019 8:21 AM EDT 5 mg LORazepam (ATIVAN) 2 mg/mL injection 1 dose, Starting on Thu11/09/19 at 0019, Until Thu11/09/19 at 0028, Krystal Hernandez: cabinet override LORazepam (ATIVAN) injection 0.5-1 mg 0.5-1 mg, Intravenous, ONCE, 1 dose, On Thu11/09/19 at 0115, Please administer 0.5mg initially, if no effect in 15 minutes please administer additional 0.5mg, STAT Given 11/09/2019 12:28 AM EDT 1 mg LORazepam (ATIVAN) injection 1 mg 1 mg, Intravenous, ONCE, 1 dose, On Francisca 11/03/19 at 1200, For bedside procedure, administer at request of provider., Routine Given 11/03/2019 11:06 AM EDT 1 mg melatonin tablet 3 mg 3 mg, Oral, NIGHTLY, First dose on Thu11/08/19 at 0100, Until Discontinued, Routine Given 11/15/2019 8:03 PM EDT 3 mg Given 11/14/2019 8:44 PM EDT 3 mg Given 11/13/2019 8:29 PM EDT 3 mg metFORMIN (Glucophage) tablet 1,000 mg 1,000 mg, Oral, 2 TIMES DAILY WITH MEALS, First dose on Thu11/02/19 at 0800, Until Discontinued, Routine Given 11/08/2019 5:39 PM EDT 1,000 mg Given 11/08/2019 8:08 AM EDT 1,000 mg Given 11/07/2019 5:12 PM EDT 1,000 mg ondansetron (ZOFRAN) injection 4 mg 4 mg, Intravenous, EVERY 30 MIN PRN, Starting on Francisca 11/03/19 at 1752, Until Francisca 11/03/19 at 2330, Nausea, May repeat 4 mg once in 30 minutes. If multiple antiemetics ordered, use ondansetron first and if ineffective use prochlorperazine second and if ineffective use promethazine, Day of Surgery (Day of Procedure) Given 11/03/2019 5:53 PM EDT 4 mg ondansetron (ZOFRAN) injection 4-8 mg 4-8 mg, Intravenous, EVERY 8 HOURS PRN, Starting on Thu11/02/19 at 0024, Until Thu11/16/19 at 2010, Nausea, If multiple antiemetics are ordered, use ondansetron first, prochlorperazine second, and metaclopramide third. Start with 4mg and if ineffective in 30 minutes, give an additional 4mg Given 11/05/2019 10:22 AM EDT 4 mg ondansetron (Zofran) tablet 4-8 mg 4-8 mg, Oral, EVERY 8 HOURS PRN, Starting on Thu11/02/19 at 0024, Until Thu11/16/19 at 2010, Nausea, Vomiting, If multiple antiemetics are ordered, use ondansetron first, prochlorperazine second, and metaclopramide third. PO Preferred. If patient unable to take PO, may give IV if ordered. Start with 4mg and if ineffective in 45 minutes, give an additional 4mg, Routine oxyCODONE (Roxicodone) tablet 10-15 mg 10-15 mg, Oral, EVERY 4 HOURS PRN, Starting on Thu11/10/19 at 2012, Until Thu11/15/19 at 1224, Pain, severe pain (7-10), Initial dose 10mg. If pain control not adequate in 60 minutes, give additional 5mg, Routine Given 11/15/2019 3:12 AM EDT 10 mg Given 11/14/2019 7:52 PM EDT 10 mg Given 11/14/2019 5:57 AM EDT 10 mg oxyCODONE (Roxicodone) tablet 5 mg 5 mg, Oral, EVERY 6 HOURS PRN, Starting on Thu11/03/19 at 2156, Until Thu11/10/19 at 2013, Pain, Pain >6/10, Routine Given 11/10/2019 7:51 PM EDT 5 mg Given 11/10/2019 3:47 PM EDT 5 mg Given 11/03/2019 10:11 PM EDT 5 mg oxyCODONE (Roxicodone) tablet 5 mg 5 mg, Oral, EVERY 6 HOURS PRN, Starting on Thu11/15/19 at 1230, Until Thu11/16/19 at 2010, Pain, Refractory pain not relieved by Tylenol, Routine Given 11/16/2019 5:38 PM EDT 5 mg Given 11/15/2019 8:03 PM EDT 5 mg oxyCODONE (Roxicodone) tablet 5-10 mg 5-10 mg, Oral, EVERY 4 HOURS PRN, Starting on Thu11/10/19 at 2012, Until Thu11/15/19 at 1224, Pain, moderate pain (4-6), Initial dose 5mg. If pain control not adequate in 60 minutes, give additional 5mg, Routine Given 11/13/2019 8:21 AM EDT 5 mg Given 11/12/2019 2:34 PM EDT 5 mg Given 11/12/2019 8:31 AM EDT 5 mg polyethylene glycoL (Miralax) packet 17 g 17 g, Oral, DAILY PRN, Starting on Thu11/04/19 at 0814, Until Thu11/16/19 at 2010, Constipation, Routine Given 11/15/2019 9:30 AM EDT 17 g Given 11/14/2019 8:43 PM EDT 17 g Given 11/13/2019 8:29 PM EDT 17 g senna-docusate (Pericolace) 8.6-50 mg per tablet 2 tablet 2 tablet, Oral, 2 TIMES DAILY PRN, Starting on Thu11/04/19 at 0814, Until Thu11/15/19 at 1249, Constipation, Routine Given 11/14/2019 8:44 PM EDT 2 tab lets Given 11/13/2019 8:29 PM EDT 2 tablets Given 11/12/2019 8:07 PM EDT 2 tablets senna-docusate (Pericolace) 8.6-50 mg per tablet 2 tablet 2 tablet, Oral, 2 TIMES DAILY, First dose (after last modification) on Thu11/15/19 at 2100, Until Discontinued, Routine Given 11/15/2019 8:04 PM EDT 2 table ts sodium chloride 0.9 % (flush) flush 5 mL 5 mL, Intravenous, 2 TIMES DAILY, First dose on Thu11/02/19 at 1115, Until Discontinued, Recovery (Recovery-Hospital Unit), Routine Given 11/15/2019 9:02 AM EDT 5 mLs Given 11/14/2019 8:45 PM EDT 5 mLs Given 11/14/2019 7:54 PM EDT 5 mLs sodium chloride 0.9 % (flush) flush 5 mL 5 mL, Intravenous, 2 TIMES DAILY, First dose on Thu11/03/19 at 2100, Until Discontinued, Routine Given 11/08/2019 9:54 PM EDT 5 mLs Given 11/08/2019 8:08 AM EDT 5 mLs Given 11/07/2019 9:04 PM EDT 5 mLs sodium chloride 0.9 % (flush) flush 5-20 mL 5-20 mL, Intravenous, EVERY 1 MIN PRN, Starting on Thu11/02/19 at 1016, Until Thu11/15/19 at 1220, flush, Flush pertains to all indwelling lines. Flush per protocol found in the job aid using the link provided on this medication record., Recovery (Recovery-Hospital Unit), Routine Given 11/04/2019 8:08 AM EDT 5 mLs sodium chloride 0.9% infusion 100 mL/hr, Intravenous, CONTINUOUS, Starting on Thu11/01/19 at 2040, Until Thu11/07/19 at 0916 New 11/06/2019 8:51 AM EDT 100 mL/hr 100 mL/hr New 11/05/2019 10:10 PM EDT 100 mL/hr 100 mL/hr New 11/03/2019 3:52 AM EDT 100 mL/hr 100 mL/hr sodium chloride 0.9% infusion 75 mL/hr, Intravenous, CONTINUOUS, Starting on Thu11/08/19 at 0000, Until Thu11/08/19 at 1218 11/07/2019 11:32 PM EDT 75 mL/hr 75 mL/hr sodium chloride 0.9% infusion 75 mL/hr, Intravenous, CONTINUOUS, Starting on Thu11/09/19 at 0715, Until Thu11/09/19 at 1914 11/09/2019 6:24 AM EDT 75 mL/hr 75 mL/hr sodium chloride 0.9% infusion 100 mL/hr, Intravenous, CONTINUOUS, Starting on Thu11/14/19 at 0000, Until Thu11/15/19 at 1249 Rate/Dose Verify 11/14/2019 8:00 PM EDT 100 mL/hr 100 mL/hr 11/14/2019 12:19 AM EDT 100 mL/hr 100 mL/hr valproate (DEPACON) 1,000 mg in sodium chloride 0.9% 60 mL 1,000 mg, Intravenous, ONCE, 1 dose, On Thu11/11/19 at 2000, Administer over 60 Minutes 11/11/2019 9:40 PM EDT 1,000 mg 60 m L/hr valproate (DEPACON) 1,000 mg in sodium chloride 0.9% 60 mL 1,000 mg, Intravenous, ONCE, 1 dose, On Thu11/12/19 at 0345, Administer over 60 Minutes 11/12/2019 4:18 AM EDT 1,000 mg 60 m L/hr valproate (DEPACON) 500 mg in sodium chloride 0.9% 55 mL 500 mg, Intravenous, EVERY 8 HOURS SCHEDULED, First dose (after last modification) on Thu11/12/19 at 1400, Until Discontinued, Administer over 60 Minutes New 11/15/2019 6:37 AM EDT 500 mg 55 m L/hr New 11/14/2019 9:06 PM EDT 500 mg 55 mL/hr New Bag 11/14/2019 5:57 AM EDT 500 mg 55 mL/hr documented in this encounter Active and Recently Administered Medications Times are shown in EDT. Scheduled Medication Order 11/14/2019 11/15/2019 11/16/2019 busPIRone (Buspar) tablet 7.5 mg 7.5 mg, Oral, 2 TIMES DAILY, First dose on Thu11/14/19 at 0415, Until Discontinued, Routine 0356 (Given - Provider: Belgica Goldsmith, ABIGAIL)1344 (JUN Hold - Provider: Admin Adt - Reason: Transfer to a Procedural area)1604 (JUN Unhold - Provider: Admin Adt)204 (Given - Provider: Belgica Goldsmith RN) 0901 (Given - Provider: Margie Knowels, ABIGAIL)2002 (Given - Provider: Basilia Rowe RN) 0836 (Given - Provider: Kary Saeed, ABIGAIL) divalproex EC (Depakote) tablet 750 mg 750 mg, Oral, 3 TIMES DAILY, First dose on Thu11/15/19 at 1500, Until Discontinued, DO NOT SPLIT, CRUSH OR OPEN, Routine 1649 (Given - Provider: Margie Knowles, ABIGAIL)2002 (Given - Provider: Basilia Rowe RN) 0833 (Given - Provider: Kary Saeed, ABIGAIL)1601 (Given - Provider: Kary Saeed, ABIGAIL) famotidine (Pepcid) tablet 40 mg 40 mg, Oral, 2 TIMES DAILY, First dose (after last modification) on 11/05/19 at 0900, Until Discontinued, Routine 0900 (Due - Provider: Admin Adt)1344 (JUN Hold - Provider: Admin Adt - Reason: Transfer to a Procedural area)1604 (JUN Unhold - Provider: Admin Adt)204 (Given - Provider: Belgica Goldsmith RN) 0900 (Given - Provider: Margie Knowles RN)2003 (Given - Provider: Basilia Rowe RN) 0834 (Given - Provider: Kary Saeed RN) insulin lispro (HumaLOG) VIAL injection 1-5 Units(Linked Group 1) 1-5 Units, Subcutaneous, 3 TIMES DAILY BEFORE MEALS, First dose on Thu11/02/19 at 0730, Until Discontinued, CORRECTION BOLUS [1-4 Units] Sensitive Sliding Scale: Correction factor 40 (1 unit of insulin is expected to drop the glucose 40 mg/dL) BG 160 - 200 Give 1 unit BG 201 - 240 Give 2 units BG 241 - 280 Give 3 units BG greater than 280, give 4 units and recheck BG in 2 hours. - If recheck BG is LESS than 280, give no insulin and resume schedule - If recheck BG is GREATER than 280, give 4 units and repeat BG in 2 hours (no more than 3 times) & call for new insulin orders. DO NOT hold if NPO, unless specifically told to do so. Per Blood Glucose Monitoring Policy, re-check a BG of > 240 in 2 hours., Routine 0730 (Due - Provider: Admin Adt)1130 (Due - Provider: Admin Adt)1344 (MAR Hold - Provider: Admin Adt - Reason: Transfer to a Procedural area)1604 (MAR Unhold - Provider: Admin Adt)1630 (Not Given - Provider: Margie Knowles RN - Reason: Order parameters not met) 0730 (Not Given - Provider: Margie Knowles RN - Reason: Order parameters not met)1130 (Not Given - Provider: Margie Knowles RN - Reason: Order parameters not met)1630 (Not Given - Provider: Margie Knowles RN - Reason: Order parameters not met) 0730 (Not Given - Provider: Kary Saeed RN - Reason: Order parameters not met)1130 (Not Given - Provider: Kary Saeed RN - Reason: Order parameters not met - Comment: 104)1630 (Not Given - Provider: Kary Saeed RN - Reason: Order parameters not met) lisinopriL (Prinivil;Zestril) tablet 5 mg 5 mg, Oral, DAILY, First dose on Thu11/02/19 at 0900, Until Discontinued, Routine 0900 (Due - Provider: Admin Adt)1344 (MAR Hold - Provider: Admin Adt - Reason: Transfer to a Procedural area)1604 (MAR Unhold - Provider: Admin Adt) 0900 (Given - Provider: Margie Knowles RN) 0834 (Given - Provider: Kary Saeed, ABIGAIL) melatonin tablet 3 mg 3 mg, Oral, NIGHTLY, First dose on Thu11/08/19 at 0100, Until Discontinued, Routine 1344 (JUN Hold - Provider: Admin Adt - Reason: Transfer to a Procedural area)1604 (JUN Unhold - Provider: Admin Adt)204 (Given - Provider: Belgica Goldsmith RN) 2002 (Given - Provider: Basilia Rowe, ABIGAIL) senna-docusate (Pericolace) 8.6-50 mg per tablet 2 tablet 2 tablet, Oral, 2 TIMES DAILY, First dose (after last modification) on Thu11/15/19 at 2100, Until Discontinued, Routine 2003 (Given - Provider: Basilia Rowe RN) 0900 (Not Given - Provider: Kary Saeed RN - Reason: Patient/family refused) sodium chloride 0.9 % (flush) flush 5 mL (CANCELED) 5 mL, Intravenous, 2 TIMES DAILY, First dose on Thu11/02/19 at 1115, Until Discontinued, Recovery (Recovery-Hospital Unit), Routine 195 (Given - Provider: Belgica Goldsmith RN)2044 (Given - Provider: Belgica Goldsmith RN) 0902 (Given - Provider: Margie Knowles, ABIGAIL) valproate (DEPACON) 500 mg in sodium chloride 0.9% 55 mL (CANCELED) 500 mg, Intravenous, EVERY 8 HOURS SCHEDULED, First dose (after last modification) on Thu11/12/19 at 1400, Until Discontinued, Administer over 60 Minutes 0557 (New Bag - Provider: Belgica Goldsmith RN)0657 (Stopped - Provider: Belgica Goldsmith RN)1344 (JUN Hold - Provider: Admin Adt - Reason: Transfer to a Procedural area)1400 (Automatically Held - Provider: Admin Adt)1604 (JUN Unhold - Provider: Admin Adt)2106 (New Bag - Provider: Belgica Goldsmith RN)2206 (Stopped - Provider: Belgica Goldsmith RN) 0637 (New Bag - Provider: Belgica Goldsmith RN)0737 (Stopped - Provider: Margie Knowles RN) Continuous Medication Order 11/14/2019 11/15/2019 11/16/2019 sodium chloride 0.9% infusion (CANCELED) 100 mL/hr, Intravenous, CONTINUOUS, Starting on Thu11/14/19 at 0000, Until Thu11/15/19 at 1249 0019 (New Bag - Provider: Belgica Goldsmith RN)1344 (MAR Hold - Provider: Admin Adt - Reason: Transfer to a Procedural area)1604 (MAR Unhold - Provider: Admin Adt)2000 (Rate/Dose Verify - Provider: Belgica Goldsmith RN) PRN Medication Order 11/14/2019 11/15/2019 11/16/2019 acetaminophen (Tylenol) suppository 650 mg(Linked Group 2) 650 mg, Rectal, EVERY 4 HOURS PRN, Starting on Thu11/02/19 at 0024, Until Thu11/16/19 at 2010, Pain, Mild pain (1-3), Give per rectum (AK) if unable to take PO. Do not exceed 4000 mg acetaminophen per day., Routine 0557 (See Alternative - Provider: Belgica Goldsmith RN)1344 (JUN Hold - Provider: Admin Adt - Reason: Transfer to a Procedural area)1604 ([facility] [place] Unhold - Provider: Admin Adt)195 (See Alternative - Provider: Belgica Goldsmith RN) 0312 (See Alternative - Provider: Belgica Goldsmith RN)0900 (See Alternative - Provider: Margie Knowles, ABIGAIL) 1216 (See Alternative - Provider: Kary Saeed, ABIGAIL)1735 (See Alternative - Provider: Alice Bourgeois, ABIGAIL) acetaminophen (Tylenol) tablet 650 mg(Linked Group 2) 650 mg, Oral, EVERY 4 HOURS PRN, Starting on Thu11/02/19 at 0024, Until Thu11/16/19 at 2010, Pain, Mild pain (1-3), Do not exceed 4000 mg acetaminophen per day., Routine 0557 (Given - Provider: Belgica Goldsmith RN)1344 (JUN Hold - Provider: Admin Adt - Reason: Transfer to a Procedural area)1604 (MAR Unhold - Provider: Admin Adt)195 (Given - Provider: Belgica Goldsmith RN) 0312 (Given - Provider: Belgica Goldsmith RN)0900 (Given - Provider: Margie Knowles, RN) 1216 (Given - Provider: Kary Saeed, ABIGAIL)1735 (Given - Provider: Alice Bourgeois, ABIGAIL) bisacodyL (Dulcolax) suppository 10 mg 10 mg, Rectal, DAILY PRN, Starting on Thu11/04/19 at 0814, Until Thu11/16/19 at 2010, Constipation, Routine 1344 (JUN Hold - Provider: Admin Adt - Reason: Transfer to a Procedural area)1604 (JUN Unhold - Provider: Admin Adt) 2009 (Given - Provider: Basilia Rowe RN) calcium carbonate (Tums) chewable tablet 500-1,000 mg 500-1,000 mg, Oral, EVERY 4 HOURS PRN, Starting on Thu11/04/19 at 0021, Until Thu11/16/19 at 2010, Heartburn, Give 500 mg (1 tablet) for mild to moderate heartburn. Give 1,000 mg (2 tablets) for severe heartburn., Routine 1344 (JUN Hold - Provider: Admin Adt - Reason: Transfer to a Procedural area)1604 (JUN Unhold - Provider: Admin Adt) dextrose 10% infusion(Linked Group 3) 250 mL, at 1,000 mL/hr, Intravenous, EVERY 30 MIN PRN, Starting on Thu11/02/19 at 0024, Until Thu11/16/19 at 2010, For BG 50-70 mg/dL: Oral treatment preferred:?? If able to drink, give 120 mL Juice or Regular (not diet) soda OR If NPO, give 15 gram glucose 40% oral gel massaged into buccal mucosa OR if unconscious or uncooperative, give 25 gram (250 mL) Dextrose 10% IV over 15 minutes per protocol OR, if no IV access, 1 mg Glucagon IM. For BG less than 50 mg/dL: Oral treatment preferred:?? If able to drink, give 240 mL Juice or Regular (not diet) soda OR If NPO, give 30 gram glucose 40% oral gel massaged in buccal mucosa OR if unconscious or uncooperative, give 25 gram (250 mL) Dextrose 10% IV over 15 minutes per protocol OR, if no IV access, 1 mg Glucagon IM. Recheck BG in 30 minutes. May repeat juice/soda, gel, dextrose or glucagon once per episode. For persistent hypoglycemia, consider longer-acting treatment for the duration of the active insulin. 1344 ([facility] [place] Hold - Provider: Admin Adt - Reason: Transfer to a Procedural area)1604 ([facility] [place] Unhold - Provider: Admin Adt) glucagon (human recombinant) injection SolR 1 mg(Linked Group 3) 1 mg, Intramuscular, EVERY 30 MIN PRN, Starting on Thu11/02/19 at 0024, Until Thu11/16/19 at 2010, Low blood sugar, For BG 50-70 mg/dL: Oral treatment preferred:?? If able to drink, give 120 mL Juice or Regular (not diet) soda OR If NPO, give 15 gram glucose 40% oral gel massaged into buccal mucosa OR if unconscious or uncooperative, give 25 gram (250 mL) Dextrose 10% IV over 15 minutes per protocol OR, if no IV access, 1 mg Glucagon IM. For BG less than 50 mg/dL: Oral treatment preferred:?? If able to drink, give 240 mL Juice or Regular (not diet) soda OR If NPO, give 30 gram glucose 40% oral gel massaged in buccal mucosa OR if unconscious or uncooperative, give 25 gram (250 mL) Dextrose 10% IV over 15 minutes per protocol OR, if no IV access, 1 mg Glucagon IM. Recheck BG in 30 minutes. May repeat juice/soda, gel, dextrose or glucagon once per episode. For persistent hypoglycemia, consider longer-acting treatment for the duration of the active insulin., Routine 1344 ([facility] [place] Hold - Provider: Admin Adt - Reason: Transfer to a Procedural area)1604 ([facility] [place] Unhold - Provider: Admin Adt) glucose (GLUTOSE) 40% oral geL(Linked Group 3) 15-30 g, Buccal, EVERY 30 MIN PRN, Starting on Thu11/02/19 at 0024, Until Thu11/16/19 at 2010, Low blood sugar, For BG 50-70 mg/dL: Oral treatment preferred:?? If able to drink, give 120 mL Juice or Regular (not diet) soda OR If NPO, give 15 gram glucose 40% oral gel massaged into buccal mucosa OR if unconscious or uncooperative, give 25 gram (250 mL) Dextrose 10% IV over 15 minutes per protocol OR, if no IV access, 1 mg Glucagon IM. For BG less than 50 mg/dL: Oral treatment preferred:?? If able to drink, give 240 mL Juice or Regular (not diet) soda OR If NPO, give 30 gram glucose 40% oral gel massaged in buccal mucosa OR if unconscious or uncooperative, give 25 gram (250 mL) Dextrose 10% IV over 15 minutes per protocol OR, if no IV access, 1 mg Glucagon IM. Recheck BG in 30 minutes. May repeat juice/soda, gel, dextrose or glucagon once per episode. For persistent hypoglycemia, consider longer-acting treatment for the duration of the active insulin. 1 tube contains 15 grams of glucose (net weight of tube = 37.5 grams., Routine 1344 ([facility] Hold - Provider: Admin Adt - Reason: Transfer to a Procedural area)1604 ([facility] [place] Unhold - Provider: Admin Adt) hydrALAZINE (APRESOLINE) injection 10 mg 10 mg, Intravenous, EVERY 1 HOUR PRN, Starting on Thu11/02/19 at 0024, Until Thu11/16/19 at 2010, High Blood Pressure, Target systolic blood pressure (SBP) less than 160 mmHg. Administer 10 mg IV . May repeat once in 15 minutes if SBP greater than target BP (caution if HR greater than 90). Use if labetalol ineffective after 1 hour., Routine 1344 ([facility] [place] Hold - Provider: Admin Adt - Reason: Transfer to a Procedural area)1437 (Given - Provider: Destiny Rojo RN - Comment: SBP >160)1441 ([facility] [place] Unhold - Provider: Destiny Rojo RN) labetalol (NORMODYNE,TRANDATE) injection 10-20 mg 10-20 mg, Intravenous, EVERY 1 HOUR PRN, Starting on Thu11/02/19 at 0024, Until Thu11/16/19 at 2010, High Blood Pressure, Target systolic blood pressure (SBP) less than 160 mmHg. Administer 10 mg over 2 minutes. May repeat every 15 minutes if SBP remains above goal. If inadequate effect with second 10 mg dose then increase dose to 20 mg for subsequent dosing every 15 minutes. Dose not to exceed 300 mg per day. Hold if pulse is less than 50 beats per minute., Routine 1344 ([facility] [place] Hold - Provider: Admin Adt - Reason: Transfer to a Procedural area)1604 ([facility] [place] Unhold - Provider: Admin Adt) ondansetron (ZOFRAN) injection 4-8 mg(Linked Group 4) 4-8 mg, Intravenous, EVERY 8 HOURS PRN, Starting on Thu11/02/19 at 0024, Until Thu11/16/19 at 2010, Nausea, If multiple antiemetics are ordered, use ondansetron first, prochlorperazine second, and metaclopramide third. Start with 4mg and if ineffective in 30 minutes, give an additional 4mg 1344 ([facility] [place] Hold - Provider: Admin Adt - Reason: Transfer to a Procedural area)1604 ([facility] [place] Unhold - Provider: Admin Adt) ondansetron (Zofran) tablet 4-8 mg(Linked Group 4) 4-8 mg, Oral, EVERY 8 HOURS PRN, Starting on Thu11/02/19 at 0024, Until Thu11/16/19 at 2010, Nausea, Vomiting, If multiple antiemetics are ordered, use ondansetron first, prochlorperazine second, and metaclopramide third. PO Preferred. If patient unable to take PO, may give IV if ordered. Start with 4mg and if ineffective in 45 minutes, give an additional 4mg, Routine 1344 ([facility] [place] Hold - Provider: Admin Adt - Reason: Transfer to a Procedural area)1604 ([facility] [place] Unhold - Provider: Admin Adt) oxyCODONE (Roxicodone) tablet 10-15 mg (CANCELED) 10-15 mg, Oral, EVERY 4 HOURS PRN, Starting on Thu11/10/19 at 2013, Until Thu11/15/19 at 1224, Pain, severe pain (7-10), Initial dose 10mg. If pain control not adequate in 60 minutes, give additional 5mg, Routine 0557 (Given - Provider: Belgica Goldsmith RN)1344 ([facility] [place] Hold - Provider: Admin Adt - Reason: Transfer to a Procedural area)1604 ([facility] [place] Unhold - Provider: Admin Adt)1952 (Given - Provider: Belgica Goldsmith RN) 0312 (Given - Provider: Belgica Goldsmith RN) oxyCODONE (Roxicodone) tablet 5 mg(Linked Group 5) 5 mg, Oral, EVERY 6 HOURS PRN, Starting on Thu11/15/19 at 1230, Until Thu11/16/19 at 2010, Pain, Refractory pain not relieved by Tylenol, Routine 2002 (Given - Provider: Basilia Rowe, ABIGAIL) 1738 (Given - Provider: Alice Bourgeois, ABIGAIL) polyethylene glycoL (Miralax) packet 17 g 17 g, Oral, DAILY PRN, Starting on Thu11/04/19 at 0814, Until Thu11/16/19 at 2010, Constipation, Routine 1344 ([facility] Hold - Provider: Admin Adt - Reason: Transfer to a Procedural area)1604 ([place] Unhold - Provider: Admin Adt)2042 (Given - Provider: Belgica Goldsmith, ABIGAIL) 0930 (Given - Provider: Margie Knowles RN) senna-docusate (Pericolace) 8.6-50 mg per tablet 2 tablet (CANCELED) 2 tablet, Oral, 2 TIMES DAILY PRN, Starting on Thu11/04/19 at 0814, Until Thu11/15/19 at 1249, Constipation, Routine 1344 ([facility] Hold - Provider: Admin Adt - Reason: Transfer to a Procedural area)1604 ([place] Unhold - Provider: Admin Adt)2043 (Given - Provider: Belgica Goldsmith, ABIGAIL) Linked Groups Order Group 1: POCT Fingerstick Glucose (CANCELED) Routine, 4 TIMES DAILY BEFORE MEALS & AT BEDTIME, First occurrence on Thu11/02/19 at 0700, Until Specified, Consider choosing FOUR TIMES A DAY BEFORE MEALS AND AT BEDTIME as frequency for: Patients who have good hypoglycemia awareness: -Patients who are eating meals during the day and sleeping at night -Patient who are otherwise stable And insulin lispro (HumaLOG) VIAL injection 1-5 UnitsJump to med 1-5 Units, Subcutaneous, 3 TIMES DAILY BEFORE MEALS, First dose on Thu11/02/19 at 0730, Until Discontinued, CORRECTION BOLUS [1-4 Units] Sensitive Sliding Scale: Correction factor 40 (1 unit of insulin is expected to drop the glucose 40 mg/dL) BG 160 - 200 Give 1 unit BG 201 - 240 Give 2 units BG 241 - 280 Give 3 units BG greater than 280, give 4 units and recheck BG in 2 hours. - If recheck BG is LESS than 280, give no insulin and resume schedule - If recheck BG is GREATER than 280, give 4 units and repeat BG in 2 hours (no more than 3 times) & call for new insulin orders. DO NOT hold if NPO, unless specifically told to do so. Per Blood Glucose Monitoring Policy, re-check a BG of > 240 in 2 hours., Routine Group 2: acetaminophen (Tylenol) tablet 650 mgJump to med 650 mg, Oral, EVERY 4 HOURS PRN, Starting on Thu11/02/19 at 002, Until Thu11/16/19 at 2010, Pain, Mild pain (1-3), Do not exceed 4000 mg acetaminophen per day., Routine Or acetaminophen (Tylenol) suppository 650 mgJump to med 650 mg, Rectal, EVERY 4 HOURS PRN, Starting on Thu11/02/19 at 23, Until Thu11/16/19 at 2010, Pain, Mild pain (1-3), Give per rectum (AK) if unable to take PO. Do not exceed 4000 mg acetaminophen per day., Routine Group 3: glucose (GLUTOSE) 40% oral geLJump to med 15-30 g, Buccal, EVERY 30 MIN PRN, Starting on Thu11/02/19 at 0024, Until Thu11/16/19 at 2010, Low blood sugar, For BG 50-70 mg/dL: Oral treatment preferred:?? If able to drink, give 120 mL Juice or Regular (not diet) soda OR If NPO, give 15 gram glucose 40% oral gel massaged into buccal mucosa OR if unconscious or uncooperative, give 25 gram (250 mL) Dextrose 10% IV over 15 minutes per protocol OR, if no IV access, 1 mg Glucagon IM. For BG less than 50 mg/dL: Oral treatment preferred:?? If able to drink, give 240 mL Juice or Regular (not diet) soda OR If NPO, give 30 gram glucose 40% oral gel massaged in buccal mucosa OR if unconscious or uncooperative, give 25 gram (250 mL) Dextrose 10% IV over 15 minutes per protocol OR, if no IV access, 1 mg Glucagon IM. Recheck BG in 30 minutes. May repeat juice/soda, gel, dextrose or glucagon once per episode. For persistent hypoglycemia, consider longer-acting treatment for the duration of the active insulin. 1 tube contains 15 grams of glucose (net weight of tube = 37.5 grams., Routine Or dextrose 10% infusionJump to med 250 mL, at 1,000 mL/hr, Intravenous, EVERY 30 MIN PRN, Starting on Thu11/02/19 at 0024, Until Thu11/16/19 at 2010, For BG 50-70 mg/dL: Oral treatment preferred:?? If able to drink, give 120 mL Juice or Regular (not diet) soda OR If NPO, give 15 gram glucose 40% oral gel massaged into buccal mucosa OR if unconscious or uncooperative, give 25 gram (250 mL) Dextrose 10% IV over 15 minutes per protocol OR, if no IV access, 1 mg Glucagon IM. For BG less than 50 mg/dL: Oral treatment preferred:?? If able to drink, give 240 mL Juice or Regular (not diet) soda OR If NPO, give 30 gram glucose 40% oral gel massaged in buccal mucosa OR if unconscious or uncooperative, give 25 gram (250 mL) Dextrose 10% IV over 15 minutes per protocol OR, if no IV access, 1 mg Glucagon IM. Recheck BG in 30 minutes. May repeat juice/soda, gel, dextrose or glucagon once per episode. For persistent hypoglycemia, consider longer-acting treatment for the duration of the active insulin. Or glucagon (human recombinant) injection SolR 1 mgJump to med 1 mg, Intramuscular, EVERY 30 MIN PRN, Starting on Thu11/02/19 at 0024, Until Thu11/16/19 at 2010, Low blood sugar, For BG 50-70 mg/dL: Oral treatment preferred:?? If able to drink, give 120 mL Juice or Regular (not diet) soda OR If NPO, give 15 gram glucose 40% oral gel massaged into buccal mucosa OR if unconscious or uncooperative, give 25 gram (250 mL) Dextrose 10% IV over 15 minutes per protocol OR, if no IV access, 1 mg Glucagon IM. For BG less than 50 mg/dL: Oral treatment preferred:?? If able to drink, give 240 mL Juice or Regular (not diet) soda OR If NPO, give 30 gram glucose 40% oral gel massaged in buccal mucosa OR if unconscious or uncooperative, give 25 gram (250 mL) Dextrose 10% IV over 15 minutes per protocol OR, if no IV access, 1 mg Glucagon IM. Recheck BG in 30 minutes. May repeat juice/soda, gel, dextrose or glucagon once per episode. For persistent hypoglycemia, consider longer-acting treatment for the duration of the active insulin., Routine Group 4: ondansetron (Zofran) tablet 4-8 mgJump to med 4-8 mg, Oral, EVERY 8 HOURS PRN, Starting on Thu11/02/19 at 0024, Until Thu11/16/19 at 2010, Nausea, Vomiting, If multiple antiemetics are ordered, use ondansetron first, prochlorperazine second, and metaclopramide third. PO Preferred. If patient unable to take PO, may give IV if ordered. Start with 4mg and if ineffective in 45 minutes, give an additional 4mg, Routine Or ondansetron (ZOFRAN) injection 4-8 mgJump to med 4-8 mg, Intravenous, EVERY 8 HOURS PRN, Starting on Thu11/02/19 at 0024, Until Thu11/16/19 at 2010, Nausea, If multiple antiemetics are ordered, use ondansetron first, prochlorperazine second, and metaclopramide third. Start with 4mg and if ineffective in 30 minutes, give an additional 4mg Group 5: oxyCODONE (Roxicodone) tablet 5 mgJump to med 5 mg, Oral, EVERY 6 HOURS PRN, Starting on Thu11/15/19 at 1230, Until Thu11/16/19 at 2010, Pain, Refractory pain not relieved by Tylenol, Routine documented in this encounter Care Teams Catering Sales Manager Relationship Specialty Start Date End Date Shyam Harvey MD PCP - General General Internal Medicine 02/09/1812/21 documented as of this encounter
--- OUTSIDE RECORDS SUMMARY | 2023-12-15 18:10 | XMS_ITS | Encounter Summary ---
Author Organization [facility] [place] [address] Care Team Providers Care Creative Strategist Name Role Phone Shyam Harvey MD Primary Care Provider [phone] Reason for Visit * Auth/Cert Specialty Diagnoses / Procedures Referred By Contac t Referred To Contact Diagnoses Subdural hemorrhage SDH (subdural hematoma) SDH WITH MIDLINE SHIFT Procedures EMERGENCY IPI Referral ID Status Reason Start Date Expiration Date Visits Re quested Visits Authorized [id number] 1 1 Encounter Details Date Type Department Care Team (Late st Contact Info) Description 11/14/2019 7:44 AM [place] [address] Massiel Perdomo MD [facility] [place] [address] Sundar John Anesthesia Record Procedure Summary Procedure Name Responsible Anesthesiologist Anesthesia Start Time Anesthesia Stop Time @TRANSCATHETER OCCLUSION/EMBOLIZATIO N FOR TUMOR DESTRUCTION (WRVU 20.12) Massiel Perdomo MD 11/14/19 0744 11/14/19 1349 Events Date Time Event Comment 11/14/2019 0743 AN Verify 0744 Start 0745 An Start Data 0751 0757 An Induction 0802 An Intubation 0810 IV Start 0811 Anesthesia Ready 0844 Procedure Start 1332 Extubation/LMA Out 1338 an stop data 1348 Recovery or ICU Handoff Cindy ent care was transferred to the destination unit staff after review of the patient's medical history, current anesthetic/surgical status and plan, according to the Provider Handoff Checklist. 1349 Stop Meds Name Total fentaNYL 50 mcg IV Lidocaine 100 mg Propofol 320 mg Rocuronium 130 mg PHENYLephrine 560 mcg ePHEDrine 10 mg Heparin 3,000 Units Ondansetron 4 mg Neostigmine 5 mg Glycopyrrolate 0.8 mg PHENYLephrine INF 6,015 mcg Labetalol 5 mg Lactated Ringers 500 mL Sodium Chloride 0.9% 1,000 mL * Agents Name O2 Air N2O Isoflurane (et) * Blood No blood administrations on file. Lines, Drains, and Airways Type Details Placement Removal Incision 11/10/19; 1328; head ; Dressing; Mepilex x 2; 12/16/21 (LDA cleanup utility RA#[id number]); 1715 (LDA cleanup utility RA#[id number]) 11/10/19 1328 by Rosalinda Colon RN 12/16/21 1715 by Jennifer Bernstein (RETIRED) Peripheral IV Line - Single Lumen 11/14/19; 0440; cephalic vein (lateral side of arm), right; [id number] catheter system; 20 gauge, 1 in length; Negrita Santana RN VAS; distraction, tolerated well, appears comfortable, age-appropriate response; 0; removed per policy/procedure, catheter/device intact, site care per policy/procedure; 11/16/19; 1733 11/14/19 0440 by Chrissy Santana RN 11/16/19 1733 by Daquan Robert LNA ETT Mask Ventilation: Ad junct (2); ETT Type: Cuffed; ETT Size: 7.5 mm; Mac Blade: 3; Notes: Asleep, Pre-O2, Stylette; Attempts: 1; Laryngoscopy Grade: 1; ETT Placement Verified By: Capnometry, Visual; Secured at Teeth: 24 cm; Inserted by: Sundar John; Removal Date: 11/14/19; Removal Time: 1332 11/14/19 0807 by Sundar John CRNA 11/14/19 1332 by Farida Han CRNA (RETIRED) Peripheral IV Line - Single Lumen 11/14/19; 0819; median cubital vein (antecubital fossa), right; [id number]-sgj-[id number] catheter system; 16 gauge; Farida Han CRNA; removed per policy/procedure, catheter/device intact, site care per policy/procedure; 11/16/19; 1732 11/14/19 0819 by Sundar John, PARADICHLOROBENZENE TENDER 11/16/19 1732 by Daquan Robert LNA Arterial Line 11/14/19; 0819; radi al artery, left; 20 gauge; Sundar John SRNA; Sterile Gloves, Sterile Prep; 11/14/19; 1553 11/14/19 0819 by Sundar John, PARADICHLOROBENZENE TENDER 11/14/19 1553 by Destiny Rojo RN Urethral Catheter 11/14/19; 0827; Surg buzz longer than 2 hours, Need for intraoperative urine output monitoring; indwelling single lumen catheter; 100% silicone; 14; inserted at this facility; 1; 10; 10; drainage bag to dependent drainage; urethral catheter removed, tubing intact; 11/15/19; 1029 11/14/19 0827 by Lucille Stewart RN 11/15/19 1029 by Margie Knowles RN Incision 11/14/19; 0840; groi n; non-laparascopic puncture (arterial access for ceberal angio with intervention); 12/16/21 (LDA cleanup utility RA#[id number]); 1715 (LDA cleanup utility RA#[id number]) 11/14/19 0840 by Lucille Stewart RN 12/16/21 1715 by Jennifer Bernstein documented in this encounter Social History Tobacco Use Types Packs/Day Years Used Date Smoking Tobacco: Former Cigarettes 1 50 1 953 - 2002 Sex and Gender Information Value Date Recorded Sex Assigned at Not on file Gender Identity Not on file Sexual Orientation Not on file documented as of this encounter OR Notes * Anesthesia Preprocedure Evaluation - Massiel Perdomo MD - 11/13/2019 8:46 PM EDT Pre-Anesthesia Evaluation for: Josue Westbrook a 74 y.o. male. Procedure(s): @TRANSCATHETER OCCLUSION/EMBOLIZATION FOR TUMOR DESTRUCTION Patient Active Problem List Diagnosis ??? SDH (subdural hematoma) ??? Basal cell carcinoma ??? Tinea pedis Past Medical History: Diagnosis Date ??? Diabetes mellitus ??? Hypertension Past Surgical History: Procedure Laterality Date ??? PRO BOUCHRA HOLE EVAC SUBDUR/EXTRA HEMATOMA Left 11/10/2019 @CRANI-SUB\EXTRADURAL HEMATOMA EVAC, BOUCHRA HOLE (WRVU 17.07) performed by Addy Machado MD at [facility] OR ??? PRO PERM OCCLUSION/EMBOLIZATION, PERCUT, BIBLE TEACHER N/A 11/03/2019 @TRANSCATHETER OCCLUSION/EMBOLIZATION FOR TUMOR DESTRUCTION performed by Hussain Christianson MD at [facility] ??? TONSILLECTOMY Social History Tobacco Use ??? Smoking status: Former Smoker Packs/day: 1.00 Years: 50.00 Pack years: 50.00 Types: Cigarettes Quit date: 2002 Years since quittin.5 Substance Use Topics ??? Alcohol use: Not on file Social History Substance and Sexual Activity Drug Use Not on file No Known Allergies Medications: MAR and/or home medications have been reviewed. Physical Exam: Most Recent Vitals: 11/13/191956 BP: Pulse: Resp: Temp: 37.1 ??C (98.8 ??F) SpO2: Body mass index is 26.44 kg/m??. Height: 177.8 cm (5' 10) Weight: 83.6 kg (184 lb 4.9 oz) Airway Assessment: Mallampati: I TM distance: >3 FB Neck ROM: full Cardiovascular Assessment: Rhythm: regular Pulmonary Assessment: Dental Assessment: (+) upper dentures Misc Assessment: Anesthesia Plan: ASA 2 general, with a(n) intravenous induction 74 yo male with SDH presents for destruction AV fistula. No problems with anesthesia in the past. Written consent in chart. Verbal consent obtained today. Plan GETA with standard ASA monitors and adequate IV access, arterial line. Region - Intracranial (vascular) Informed Consent: Anesthetic plan and risks discussed with patient. Plan discussed with PARADICHLOROBENZENE TENDER and attending. PAT Clinic Note documented in this encounter Plan of Treatment Not on file documented as of this encounter Visit Diagnoses Not on filedocumented in this encounter Administered Medications Inactive Administered Medications - up to 3 most recent administrations Medication Order MAR Action Action Date Dose Rate Site ePHEDrine 5 mg/mL multi-dose injection PRN, Starting on Thu11/14/19 at 0939, Until Thu11/14/19 at 1350, Anesthesia Intra-op, Routine Given 11/14/2019 10:52 AM EDT 5 mg Given 11/14/2019 9:39 AM EDT 5 mg fentaNYL 50 mcg/mL multi-dose injection PRN, Starting on Thu11/14/19 at 0651, Until Thu11/14/19 at 1350, Anesthesia Intra-op, Routine Given 11/14/2019 8:18 AM EDT 50 mcg glycopyrrolate (ROBINUL) multi-dose injection PRN, Starting on Thu11/14/19 at 1322, Until Thu11/14/19 at 1350, Anesthesia Intra-op, Routine Given 11/14/2019 1:22 PM EDT 0.8 mg heparin (porcine) 1,000 unit/mL injection PRN, Starting on Thu11/14/19 at 0913, Until Thu11/14/19 at 1350, Anesthesia Intra-op, Routine Given 11/14/2019 9:13 AM EDT 3,000 Units labetalol (NORMODYNE,TRANDATE) multi-dose injection PRN, Starting on Thu11/14/19 at 1345, Until Thu11/14/19 at 1350, Anesthesia Intra-op, Routine Given 11/14/2019 1:45 PM EDT 5 mg lactated ringers infusion CONTINUOUS PRN, Starting on Thu11/14/19 at 0757, Until Thu11/14/19 at 1350, Anesthesia Intra-op New Bag 11/14/2019 7:57 AM EDT lidocaine (PF) (XYLOCAINE) 100 mg/5 mL (2 %) injection PRN, Starting on Thu11/14/19 at 0756, Until Thu11/14/19 at 1350, Anesthesia Intra-op, Routine Given 11/14/2019 7:56 AM EDT 100 mg neostigmine (BLOXIVERZ) injection PRN, Starting on Thu11/14/19 at 1322, Until Thu11/14/19 at 1350, Anesthesia Intra-op, Routine Given 11/14/2019 1:22 PM EDT 5 mg ondansetron (ZOFRAN) injection PRN, Starting on Thu11/14/19 at 1315, Until Thu11/14/19 at 1350, Anesthesia Intra-op, Routine Given 11/14/2019 1:15 PM EDT 4 mg PHENYLephrine (LONG-SYNEPHRINE) 20 mg in sodium chloride 250 mL (standard ADULT & Pedi greater than 20kg) infusion CONTINUOUS PRN, Starting on Thu11/14/19 at 0814, Until Thu11/14/19 at 1350, Anesthesia Intra-op, Routine Restarted 11/14/2019 12:14 PM EDT 10 mcg/min 7.5 mL/hr Restarted 11/14/2019 12:08 PM EDT 10 mcg/min 7.5 mL/hr Rate/Dose Change 11/14/2019 12:02 PM EDT 10 mcg/min 7.5 mL /hr PHENYLephrine in NS (PF) (LONG-SYNEPHRINE) 0.8 mg/10 mL (80 mcg/mL) multi-dose injection Syrg PRN, Starting on Thu11/14/19 at 0758, Until Thu11/14/19 at 1350, Anesthesia Intra-op, Routine Given 11/14/2019 8:15 AM EDT 160 mcg Given 11/14/2019 8:09 AM EDT 160 mcg Given 11/14/2019 8:07 AM EDT 80 mcg propofol (DIPRIVAN) 10 mg/mL bolus injection (Anesthesia) PRN, Starting on Thu11/14/19 at 0758, Until Thu11/14/19 at 1350, Anesthesia Intra-op Given 11/14/2019 1:22 PM EDT 20 mg Given 11/14/2019 11:56 AM EDT 50 mg Given 11/14/2019 8:18 AM EDT 50 mg rocuronium (ZEMURON) multi-dose injection PRN, Starting on Thu11/14/19 at 0758, Until Thu11/14/19 at 1350, Anesthesia Intra-op, Routine Given 11/14/2019 11:59 AM EDT 10 mg Given 11/14/2019 10:52 AM EDT 20 mg Given 11/14/2019 9:32 AM EDT 10 mg sodium chloride 0.9% infusion CONTINUOUS PRN, Starting on Thu11/14/19 at 0811, Until Thu11/14/19 at 1350, Anesthesia Intra-op New Bag 11/14/2019 8:11 AM E DT documented in this encounter Care Teams Creative Strategist Relationship Specialty Start Date End Date Shyam Harvey MD PCP - General General Internal Medicine 02/09/1812/21 documented as of this encounter
--- OUTSIDE RECORDS SUMMARY | 2023-12-15 18:10 | XMS_ITS | Encounter Summary ---
Author Organization Formerly [facility] Address [facility] [place] [address] Care Team Providers Care Bleacher Sulfite Pulp Name Role Phone Shyam Harvey MD Primary Care Provider [phone] Reason for Visit * Reason Comments Hospital Transfer SDH * Auth/Cert Specialty Diagnoses / Procedures Referred By Contac t Referred To Contact Diagnoses Subdural hemorrhage SDH (subdural hematoma) SDH WITH MIDLINE SHIFT Procedures EMERGENCY IPI Referral ID Status Reason Start Date Expiration Date Visits Re quested Visits Authorized [id number] 1 1 Encounter Details Date Type Department Care Team (Late st Contact Info) Description 11/14/2019 11:30 AM EDT - 11/14/2019 3:30 [place] [id number] Hussain Christianson MD [facility] [place] [address] @TRANSCATHETER OCCLUSION/EMBOLIZATION FOR TUMOR DESTRUCTION (WRVU 20.12) Social History Tobacco Use Types Packs/Day Years Used Date Smoking Tobacco: Former Cigarettes 1 50 1 953 - 2003 Tobacco Cessation:Counseling Given: No Sex and Gender Information Value Date Recorded Sex Assigned at Not on file Gender Identity Not on file Sexual Orientation Not on file documented as of this encounter Last Filed Vital Signs Vital Sign Reading Time Taken Comments Blood Pressure 144/48 11/14/2019 3:30 PM EDT Pulse 49 11/14/2019 3:30 PM EDT Temperature 36.8 ??C (98.2 ??F) 11/14/2019 3:30 PM ED T Respiratory Rate 10 11/14/2019 3:30 PM EDT Oxygen Saturation 99% 11/14/2019 3:30 PM EDT Inhaled Oxygen Concentration - - Weight 83.6 kg (184 lb 4.9 oz) 11/03/2019 11:35 PM EDT Height 177.8 cm (5' 10) 11/02/2019 [...] DM who presented to the ED at [facility] after having anoutpatient CT scan that was [...] Local mass effect is stable with unchanged ouit-lc-wtawi midline shift of 4 mm. The basal [...] pneumocephalus after removal of EVD. Grossly stable nsyg-rv-yztel midline shift. I have personally reviewed theimage(s) and the resident's interpretation and agree with the findings, Myrtle Rowan at 11/09/2019 2:50 AM Thank you for letting us participate in the care of this patient. For questions regarding thisreport, please contact the number below. Ct Head [...] with grossly stable 7 to 8 mm xpjp-xh-gxtij midline shift. The suprasellar and basalcisterns remain [...] this report, please contact the number below. Film Library- Storage Only Ct Head Result [...] NB Advantage 5 Fr STEVO selective catheter, Pinnacle SL-10 microcatheter, Synchro2 microwire, 250 micron Embozene- 1 vial, 6 Barbadian Angio-Seal. DESCRIPTION: The procedure, its risks and [...] The guide catheter was removed The 5 Barbadian Kalyan catheter was then placed in the [...] number below. Electronically signed by: Hussain Christianson [facility] ([phone]), at 11/10/2019 10:28 AM Pending Studies and Lab Data: None Discharge Condition: Stable Discharge to: [facility] Future Appointments and Orders Future Orders Complete By Expires CT Head wo Contrast (Generic) [PQX386 Custom] 12/17/2019 02/16/2020 Process Instructions: Scheduling Instructions: Questions: Clinical information / rai questions: follow-up Left side SDH Do you want to report a missing reason for exam?: Where will study be performed?: [facility] Radiology Stat read required?: Does patient [...] week of discharge from the hospital. Neurology [phone] Instructions Given to Patient at Discharge: Patient Instructions SURGERY FOR HEAD INJURY DISCHARGE INSTRUCTIONS PRESCRIPTION INSTRUCTIONS: Please see the medication reconciliation list on this discharge summary for a current list of your medications. Stop the use of blood thinning medications until instructed otherwise by your surgical team. This includes medications known as antiplatelet, anticoagulant, and non-steroidal anti-inflammatory (NSAIDs) drugs. Common ncac-eza-hcgrwog medications which should be avoided include Aspirin, [...] a head injury. - When your health vocational childcare teacher says you are well enough, return to your normal activities gradually, not all at once. - Talk with your health vocational childcare teacher about when you can return to work. DRIVING: - Do NOT drive until cleared by Neurosurgery. FOLLOW UP PLAN: Incision: [x] Please follow up for suture/staple removal on/around November 23 with your Primary Care Provider or the Neurosurgery FAMILY PHYSICIAN/RN. These may also be removed at rehab. Appointments: [x] Please follow up in the Neurosurgery Clinic in 4-6 weeks with a Neurosurgery Associate Provider. Please call the Neurosurgery Office at [phone] if you do not receive a scheduled appointment within two weeks. Imaging: [x] Head CT HOW TO REACH NEUROSURGERY Contact your Doctor Office Hours: Thursday through Thursday, 8am-5pm. Call . On weekends or after office hours: Call [phone] and ask the loop machine operator to page the Neurosurgery Resident diamond setter apprentice. IMPORTANT PHONE NUMBERS: Outpatient Nurse (Stephanie Lopez) Inpatient Nurses Neurosurgical Resident On-Call (after 5pm or before 8am) Neurosurgery offices (Thursday through Thursday between 8am-5pm): Adult Neurosurgery Dr. Luis Carlos Carranza Pediatric Neurosurgery Dr. Graham Alonso Mid-level practitioners Graham Montalvo, Physician Research Engineer Ab Pillai, Physician Research Engineer Maty Mcfadden, Nurse Practitioner Winter Schmidt, Nurse Practitioner * Your surgeon may not be check processor, so be ready to tell about yourself and your surgery when you call, especially after hours or on the weekend. Ade Love, CLINICAL BUSINESS MANAGER 11/16/2019 documented in this encounter Discharge Instructions * Patient Instructions* Ade LoveCHRIS - 11/16/2019 3:17 PM EDT SURGERY FOR HEAD INJURY DISCHARGE INSTRUCTIONS PRESCRIPTION INSTRUCTIONS: Please see the medication reconciliation list on this discharge summary for a current list of your medications. Stop the use of blood thinning medications until instructed otherwise by your surgical team. This includes medications known as antiplatelet, anticoagulant, and non-steroidal anti-inflammatory (NSAIDs) drugs. Common jibg-pii-hosevxn medications which should be avoided include Aspirin, [...] a head injury. - When your health vocational childcare teacher says you are well enough, return to your normal activities gradually, not all at once. - Talk with your health vocational childcare teacher about when you can return to work. DRIVING: - Do NOT drive until cleared by Neurosurgery. FOLLOW UP PLAN: Incision: Please follow up for suture/staple removal on/around November 23 with your Primary Care Provider or the Neurosurgery FAMILY PHYSICIAN/RN. These may also be removed at rehab. Appointments: 1) Please follow up in the Neurosurgery Clinic in 4-6 weeks with a Neurosurgery Associate Provider.Please call the Neurosurgery Office at [phone] if you do not receive a scheduled appointment within two weeks. You will have a head CT at this appointment. 2) Please follow up in outpatient Neurology Clinic in 4 weeks for management of your seizure medication. You will be contacted with an appointment. Please call their office with any questions or concerns at [phone]. documented in this encounter Medications at Time [...] questions answered. Report called to RN at [facility]. [facility]NA paperwork faxed. Patient instructed to call with concerns. * Neelam Mccall - 11/16/2019 3:59 PM EDT Office of Care Management/Switchbox Assembler Patient Name: Josue Nguyen : 1945 Patient has been offered an acute rehab bed at [facility] for today, 11/16/19 [facility] arranged for a 1745 transport. Ambulance will need: Medicare ambulance form completed and signed (MD or Cyber Security Manager RN/BEHAVIORIST) Copy of patient demographics [place] Out of Hospital DNR/DNI order, if active Dr. Sevilla to admit Please call Nursing Report to , ask for flight director. Info to accompany patient: Narcotic Prescriptions Copies of Medication Administration Records and IV sheets for past 10 days. Plan: Switchbox Assembler will be available to the patient and Cyber Security Manager-RN and/or Social Workerfor further assistance. Patient will be discharged to: [facility] Neelam Mccall Switchbox Assembler * Syl Najera - 11/16/2019 2:20 PM EDT Nutrition Services Note - Low Nutrition Acuity Josue Nguyen is a 74 y.o. male Reason for intervention: follow up Nutrition Plan: Continue current diet. Monitor weight. Encourage good oral intake. Support and encouragement provided. Pt was engaged with other services at time of nutrition visit, copy writer spoke with RN. Per RN report,pt had [...] consulted in the interim. Syl Najera Pager: [phone] * Fariba Salas - 11/16/2019 12:45 PM EDTSummary: - System member information provided Office of Care Management-System Liaison Reviewed medical record and discussed with primary Cyber Security Manager, Chhaya Olivarez. Met with Josue Nguyen to discuss acute rehab level of care and provided specific information about [facility], which patient has been referred to for inpatient rehabilitation. Informed Josue Nguyen of referral review process that occurs. Discussed discharge disposition post rehab. Answered patient's questions. Patient aware of pending insurance authorization at time of this visit. Patient will be followed by primary casework manager for discuss all choices and options Provided my contact number if any further questions regarding rehab or specific facility Will continue to follow along with patient's primary casework manager. System Liaison will continue to assist with any discharge needs related to the above facility as needed. Fariba Salas RN BSN CRRN System Liaison Cyber Security Manager * Charlene Louis MD - 11/16/2019 3:52 [...] attenuation SDH. 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 INTERVAL HX/ROS: -Neurology re-consulted [...] completed shifts: In: 181 [P.O.:960; I.V.:852] Out: 3654 [Urine:365] TRANG: out 11/12 Physical Exam: General:NAD, lying awake in bed Neurological: A&Ox3 Speech fluent and appropriate, mildly dysarthric due to lack of upper dentures, stable. Naming and repetition intact. PERRL. EOMI. Visual doty full to confrontation. No facial asymmetry Tongue midline Motor: RUE:5/5 LUE:5/5 RLE: 5/5; full strength but clumsy LLE: 5/5 No upper extremity drift. LT sensation intact x 4. [place] hole sites c/d/i, closed with roberto LABS: Recent Labs 11/15/19 0136 11/14/19 0205 WBC 5.9 5.8 HGB 11.8* 12.9* PLATELET 235 261 Recent Labs 11/15/19 0136 11/14/19 0205 NA 138 140 K 4.2 4.2 [...] attenuation SDH. 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 His waxing and waning [...] out DISPO: 5W FULL CODE PLEASE PAGE [phone] WITH QUESTIONS Active Hospital Problems Diagnosis ??? SDH (subdural hematoma) Resolved Hospital Problems No resolved problems to display. Active Non-Hospital Problems Diagnosis ??? Basal cell carcinoma ??? 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 Reports earlier [...] attenuation SDH. 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 INTERVAL HX/ROS: -Still having [...] attenuation SDH. 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 His waxing and waning [...] management DISPO: 5W FULL CODE PLEASE PAGE [phone] WITH QUESTIONS Active Hospital Problems Diagnosis ??? SDH (subdural hematoma) Resolved Hospital Problems No resolved problems to display. Active Non-Hospital Problems Diagnosis ??? Basal cell carcinoma ??? Tinea sigifredo Babcock MD 11/15/2019 * Belgica Goldsmith RN [...] dAVF (Isadora 3) on DSA. INTERVAL HX/ROS: -Having what panic attacks vs episodes of word finding difficulty -Started on Buspirone -NPO since [place] for embolization of fistula today MEDICATIONS: Scheduled [...] Feeling as though coordination is improving RUE:08/22 LUE:5 RLE: 5 LLE: 08/22 No upper extremity drift. LT sensation intact x 4. [place] hole sites c/d/i, closed with roberto LABS: Recent Labs 11/14/19 0205 11/13/19 0203 11/12/19 0133 WBC 5.8 6.3 6.4 HGB 12.9* 12.9* 12.9* PLATELET 261 250 219 Recent Labs 11/14/19 0205 11/13/19 0203 11/12/19 0133 NA 140 137 139 K 4.2 [...] have left dAVF (Isadora 3) on DSA. His waxing and waning [...] F/u need for BIT/psych consultation PLEASE PAGE [phone] WITH QUESTIONS Active Hospital Problems Diagnosis ??? [...] dAVF (Isadora 3) on DSA. INTERVAL HX/ROS: -NAEON -Had [...] remain clean and dry LABS: Recent Labs 11/13/1920211/12/1913211/11/19206 WBC 6.3 6.4 7.3 HGB 12.9* 12.9* 13.0* PLATELET 250 219 228 Recent Labs 07/26/20 0203 07/25/20 0133 07/24/20 0207 NA 137 139 141 K 4.1 4.1 [...] attenuation SDH. 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 His waxing and waning [...] w/in therapeutic range. Will be NPO at [place] for dAVF embo tmrw. Plan: - Q2HNC, then Q4H, floor status after drain removal - SBP<160 - Hold DVT ppx - Remove TRANG today - Regular diet; NPO at [place] for vascular malformation embolization tmrw - Depakote 500mg TID - F/u need for BIT/psych consultation - DISPO: transfer to 5W after removal of drain PLEASE PAGE [phone] WITH QUESTIONS Active Hospital Problems Diagnosis ??? [...] attenuation SDH. 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 INTERVAL HX/ROS: POD2 s/p pedro pablo hold drainage of SDH Having episodes of expressive aphasia and agitation CTH w reduction in hematoma size and reduced mass effect C[place]pin switched to Valproate Feeling much better this [...] and dry LABS: Recent Labs 11/12/19 0133 11/11/197 11/10/19 0127 WBC 6.4 7.3 5.6 HGB 12.9* 13.0* 13.6* PLATELET 219 228 232 Recent Labs 11/12/1913211/11/1920611/10/19 0127 NA 139 141 140 K 4.1 [...] have left dAVF (Isadora 3) on DSA. His waxing and waning [...] - C/s BIT/psych may occur PLEASE PAGE [phone] WITH QUESTIONS Active Hospital Problems Diagnosis ??? [...] completed shifts: In: 2023 [P.O.:50; I.V.:1973] Out: 1739 [Urine:1675; Other:40; Blood:25] TRANG: 60 SSF Physical [...] a crani cap LABS: Recent Labs 11/11/19 0207 11/10/19 0127 11/09/19 0226 WBC 7.3 5.6 5.9 HGB 13.0* 13.6* 13.0* PLATELET 228 232 205 Recent Labs 11/11/19 0207 11/10/19 0127 11/09/19 0226 NA 141 140 139 K 4.6 3.9 [...] attenuation SDH. 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 His waxing and waning [...] - C/s BIT/psych may occur PLEASE PAGE [phone] WITH QUESTIONS Active Hospital Problems Diagnosis ??? [...] dAVF (Isadora 3) on DSA. INTERVAL HX/ROS: Post op check MEDICATIONS: Scheduled Meds: ??? [Jun] melatonin 3 mg Oral Nightly ??? [JUN [...] [JUN Hold] calcium carbonate, [JUN Hold] senna-docusate, [MAR Hold] polyethylene glycoL(MIRALAX) oral powder, [MAR Hold] bisacodyL, [MAR Hold] lidocaine, [MAR Hold] oxyCODONE, sodium chloride 0.9 % (flush), lidocaine, [MAR Hold] ondansetron OR [MAR Hold] ondansetron, [MAR Hold] acetaminophen OR [MAR Hold] acetaminophen, [MAR Hold] labetalol, [MAR Hold] hydrALAZINE, [MAR Hold]glucose 40% oral geL OR [JUN Hold] dextrose 10% OR [MAR Hold] glucagon [...] 1724 [P.O.:250; I.V.:1474] Out: 1250 [Urine:1250] TRANG: SS GEN:NAD NEURO: Waking up from anesthesia CLINE [...] pneumocephalus after removal of EVD. Grossly stable rjbl-jk-ajhkx midline shift. A/P: 74 y.o. male with PMH of HTN, HLD, and DM with progressively worsening RIGHT sided weakness found to have a large LEFT frontal/parietal mixed attenuation SDH. 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 His waxing and waning mental status on presentation raised concern for possible seizures and he was placed on video EEG without recorded seizure activity. He was again placed on video EEG on11/08/19 after episodic agitation and speech arrest. Q2HNC SBP<160 Hold DVT ppx Monitor drain output (half suction) Regular diet Keppra 500mg BID PLEASE PAGE [phone] WITH QUESTIONS Active Hospital Problems Diagnosis ??? [...] attenuation SDH. 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 11/02/19: L SEPS placement [...] pneumocephalus after removal of EVD. Grossly stable qglu-sf-fxcwb midline shift. A/P: Josue Nguyen is a [...] NSCU FULL CODE For question please call [facility] pager [phone] Charlene Louis MD 11/10/2019 Clinical Documentation Improvement: [...] although he voiced frustration over his aphasia. Risk Assessor offered support. According to pt, his appetite has been off and on for the past 3-4 weeks. Pt suspects he has lost some weight but is unsure of how much. His UBW is 190 lbs, although he imagines his weight is bellow that no w. When medically appropriate, copy writer suggests collecting an updated weight. Pt regularly [...] consulted in the interim. UMA Cardoso Pager: [phone] * Charlene Louis MD - 11/09/2019 9:57 AM EDT NEUROSURGERY PROGRESS NOTE ID: Josue Nguyen is a 74 y.o. male with PMH of HTN, HLD, and DM with progressively worsening RIGHT sided weakness found to have a large LEFT frontal/parietal mixed attenuation SDH. 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 11/02/19: L SEPS placement [...] while walking, appears unsteady LABS: Recent Labs 11/09/19 0226 11/08/19 0224 11/07/19 0113 WBC 5.9 6.5 6.6 HGB 13.0* 13.0* 13.5* PLATELET 205 188 187 Recent Labs 11/09/19 0226 11/08/19 0224 11/07/19 0113 NA 139 140 139 K [...] pneumocephalus after removal of EVD. Grossly stable piou-vn-osttt midline shift. A/P: Josue Nguyen is a [...] NSCU FULL CODE For question please call [facility] pager [phone] Charlene Louis MD 11/09/2019 Clinical Documentation Improvement: [...] consulted in the interim. 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 INTERVAL HX/ROS: -Episodic incidents [...] Temp Pulse Resp BP SpO2 O2 Device 11/07/192 -- 74 18 123/70 95 % RA [...] and was incidentally found to have dAVF [Borden3]. He was scheduled for dAVF embolization on [...] dAVF embo with IR tomorrow PLEASE PAGE [phone] WITH QUESTIONS Active Hospital Problems Diagnosis ??? [...] attenuation SDH. 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 11/02/19: L SEPS placement [...] confrontation. No facial asymmetry Tongue midline MOTOR: RUE:55 LUE:5/5 RLE: 08/22 LLE: 08/22 No pronator drift LT sensation intact x 4 L frontal SDD in place, dressing c/d/i LABS: Recent Labs 11/08/19 0224 11/07/19 0113 [...] diet -F/u plan for fistula embolization DISPO: NSCU FULL CODE For question please call NSGY pager [phone] Charlene Louis MD 11/08/2019 Clinical Documentation Improvement: Active Hospital Problems Diagnosis ??? SDH (subdural hematoma) Resolved Hospital Problems No resolved problems to display. * Jessica Smith - 11/07/2019 7:35 PM EDT Refrigeration Engine Operator Encounter Note Patient Name: Josue Nguyen : [id number] MR#: [id number] Admit Date: 11/01/2019 6:59 PM Hospital Day 6 days Narrative: Responded to request for vacuum furnace operator consult. Assessment: Patient's kaiden and resiliency are sources of strength. Intervention and Outcome: Actively listened, providing spiritual support as patient engaged in life review; spiritual journeyleading to recent ordination; daughter's from addiction leading to life work in addiction recovery; of beloved November 2018. Follow-up: Refrigeration Engine Operator remains available for support. Time in Direct Care: 35 min. Jessica Smith 11/07/2019 * Charlene Louis MD - 11/07/2019 9:09 AM EDT NEUROSURGERY PROGRESS NOTE ID: Josue Nguyen is a 74 y.o. male with PMH of HTN, HLD, and DM with progressively worsening RIGHT sided weakness found to have a large LEFT frontal/parietal mixed attenuation SDH. 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 11/02/19: L SEPS placement [...] c/d/i LABS: Recent Labs 11/07/19 0113 11/06/19 01211/05/19 011 WBC 6.6 7.4 7.8 HGB 13.5* 13.1* 13.0* PLATELET 187 179 175 Recent Labs 11/07/19 0113 11/06/19 0125 11/05/19 011 NA 139 140 139 K 4.1 4.0 [...] -NPO, mIVFs for dAVF treatment tmrw DISPO: [facility] FULL CODE For question please call [facility] pager [phone] Charlene Louis MD 11/07/2019 Clinical Documentation Improvement: [...] place, dressing c/d/i LABS: Recent Labs 11/06/19 0125 11/05/19 0116 11/04/19 0348 WBC 7.4 7.8 8.0 HGB 13.1* [...] CODE For question please call NSGY pager [phone] Tu Reyes MD 11/06/2019 Clinical Documentation Improvement: [...] frontal SDD in place, dressing c/d/i R [place] [facility] access site c/d/i, no hematoma, leg warm [...] CODE For question please call NSGY pager [phone] Masoud Babcock MD 11/05/2019 Clinical Documentation Improvement: [...] frontal SDD in place, dressing c/d/i R [place] [facility] access site c/d/i, no hematoma, leg warm [...] dAVF For question please call NSGY pager [phone] Charlene Louis MD 11/04/2019 Clinical Documentation Improvement: [...] Gibbs RN - 11/03/2019 7:39 PM EDT 1718 pt out to pacu restless trying to [...] round, and reactive to light. His right [place] [facility] access site was soft with a C/D/I dressing. Amor Singletary DO 11/03/2019 6:06 PM * Lucille Stewart RN - 11/03/2019 5:02 PM EDT Angio only post procedure: Time sheath removed: 1648 Side: Right groin Closure device used: Mynx Hematoma present? No Site release time: 1701 Anticipated up time: 1901 * Lucille Stewart RN - 11/03/2019 2:53 PM EDT ANGIO NURSING DATABASE Name: JOSEU NGUYEN Date of : 1945 AGE: 74 y.o. [address]: [address] [place] [id number] (home) [phone] (work) Mobile: Telephone Information: Referring Provider: Devonte [...] blood in the bulb LABS: Recent Labs 11/02/19230211/02/1910011/01/192113 WBC 8.6 7.7 6.2 HGB 13.2* 13.6* 13.6* PLATELET 177 176 185 Recent Labs 11/02/1910011/01/192113 NA 141 138 K 4.0 3.9 CL 107 103 CO2 26 23 BUN 12 14 CREATININE 1.12 0.92 Recent Labs 11/02/19230211/01/192113 PT 11.4 12.4 INR 1.0 1.1 IMAGING: [...] updated For question please call NSGY pager [phone] Cahrlene Louis MD 11/03/2019 Clinical Documentation Improvement: Active Hospital Problems Diagnosis ??? SDH (subdural hematoma) Resolved Hospital Problems No resolved problems to display. * Charlene Louis MD - 11/02/2019 1:14 PM EDT [facility] Middle Meningeal Embolization Trial Enrollment The study (Middle Meningeal Artery Embolization for Treatment of Chronic Subdural Hematomas - A randomized control trial, IRB ID [id number], Approved 02/03/19 by [facility]) was discussed and explained to the [...] and one copy will be scanned into [facility] and kept on file. NIHSS 1.a. Level [...] than one modality TOTAL SCORE: 5 Modified Vanderburgh Scale (mRS) 0 - No symptoms. 1 [...] score Charlene Louis MD 11/02/2019 1:18 PM [facility] Neurosurgery Inpatient Pager: #[phone] Personal Pager: #[phone] * Charlene Louis MD - 11/02/2019 9:22 [...] sensation intact x 4 LABS: Recent Labs 11/02/1910011/01/192113 WBC 7.7 6.2 HGB 13.6* 13.6* PLATELET 176 185 Recent Labs 11/02/1910011/01/192113 NA 141 138 K 4.0 3.9 CL 107 103 CO2 26 23 BUN 12 14 CREATININE 1.12 0.92 Recent Labs 11/01/19 2114 PT 12.4 INR 1.1 IMAGING: None new. [...] TIIDM Plan: -Q2H neuro checks, NSCU status -Talk w about bedside drainage; plan for SEPS drain -Con't w EEG -AEDs per Neurology; Keppra 500 BID for now -Hold ap/ac -Bedrest For question please call [facility] pager [phone] Charlene Louis MD 11/02/2019 Clinical Documentation Improvement: Active Hospital Problems Diagnosis ??? SDH (subdural hematoma) Resolved Hospital Problems No resolved problems to display. * Radha Frank RN - 11/02/2019 6:31 AM EDT Josue Nguyen arrived to [facility] @ 0000 from ED. Oriented to room, [...] 24-HOUR UPDATE Josue Nguyen was seen in [facility]. The patient's history and physical exam have [...] attenuation LEFT subdural hematoma on outside facility ([facility]) CT of the head on 10/31 from. [...] file Gets together: Not on file Attends shinto service: Not on file Active member of [...] attenuation LEFT subdural hematoma on outside facility ([facility]) CT of the head on 10/31 from. [...] do this procedure early this afternoon. * Maty Mcfadden APRN - 11/01/2019 8:38 PM EDT Neurosurgery Inpatient H&P/Consultation Note Date & Time of Consult: 11/01/2019 8:38 PM Referring Service: Emergency Medicine Referring Attending: Dr. Troy Neurosurgery Attending: Dr. Singh Place of Consult: ED08 ID: Name: Josue Nguyen, 74 y.o. male Admission Date: 11/01/2019 CC: SDH HPI: History is obtained from [facility] ED records and partially from patient. This is a 74 y.o. male with PMH of HTN, HLD, and DM who presented to the ED at [facility] after having anoutpatient CT scan that was [...] file Gets together: Not on file Attends shinto service: Not on file Active member of [...] Narrative ??? Not on file Tobacco: Quit 2003 Denies alcohol/illicit drug use Vitals: Vitals: 11/01/19 1915 11/01/19 1930 11/01/19194411/01/191999 BP: 132/57 131/69 136/75 128/71 Patient Position: [...] Judge MD - 11/08/2019 11:29 PM EDT [facility] Department of Neurology Critical Care Continuous EEG Report Patient: Josue Nguyen, [id number] Date: 11/08/19 Start Time: 11/08/19 20:39 End Time: 11/09/19 02:09 Fellow: Osbaldo Judge MD Attending: Vishal Whitman MD History: 74 yo M with a large left SDH s/p SEPS on 11/02/19. EEG for episodes of confusion concerning for seizures. Methods: A 21 channel digitized electroencephalogram was performed in the Neurologic Critical Care Unit by the [facility] Clinical Neurophysiology Laboratory. The 10/20 international system [...] Judge MD 11/08/2019 11:29 PM Personal pager: [phone] Epilepsy Fellow Associated attestation - Wild Whitman MD - 11/14/2019 4:45 PM EDT EPILEPSY ATTENDING ADDENDUM - I reviewed the EEG with the PECAN GATHERER/Epilepsy fellow, and I agree with the interpretation as documented. Wild Whitman MD, PhD [employer] Demonstrator of Neurology [facility] Epilepsy [facility] Clinical Neurophysiology Laboratory * Osbaldo Judge MD - 11/03/2019 10:07 PM EDT [facility] Department of Neurology Critical Care Continuous EEG Report Patient: Josue Nguyen, [id number] Date: 11/03/19 Start Time: 11/03/19 07:30 End Time: 11/03/19 13:10 Fellow: Osbaldo Judge MD Attending: Vinnie Gary MD PhD History: 74 yo M with a large left SDH s/p evacuation and episodes of confusion concerning for seizures. Methods: A 21 channel digitized electroencephalogram was performed in the Neurologic Critical Care Unit by the [facility] Clinical Neurophysiology Laboratory. The 10/20 international system [...] Judge MD 11/03/2019 10:07 PM Personal pager: [phone] Epilepsy Fellow Associated attestation - Vinnie Gary Jr., MD - 11/04/2019 4:36 PM EDT I have reviewed the EEG with the fellow and agree with the assessment above. Vinnie Gary MD, PhD Department of Neurology Personal Pager #[phone] 11/04/2019 4:36 PM * Charlene Louis MD - 11/03/2019 12:14 PM EDT [facility] NEUROSURGERY OPERATIVE NOTE Patient: Josue Nguyen : [...] 30 degrees in the neutral position. A Ovando Time-Out Protocol was performed, and the operative [...] Louis MD 11/03/19 12:14 PM * Osbaldo Judeg MD - 11/02/2019 12:38 PM EDT [facility] Department of Neurology Critical Care Continuous EEG Report Patient: Josue Nguyen, [id number] Date: 11/03/19 Start Time: 11/02/19 07:30 End Time: 11/03/19 07:30 Fellow: Osbaldo Judge MD Attending: Vinnie Gary MD PhD History: 74 yo M with a large left SDH s/p evacuation and episodes of confusion concerning for seizures. Methods: A 21 channel digitized electroencephalogram was performed in the Neurologic Critical Care Unit by the [facility] Clinical Neurophysiology Laboratory. The 10/20 international system [...] Judge MD 11/03/2019 12:38 PM Personal pager: [phone] Epilepsy Fellow Associated attestation - Vinnie Gary Jr., MD - 11/03/2019 1:04 PM EDT I have reviewed the EEG with the fellow and agree with the assessment above. Vinnie Gary MD, PhD Department of Neurology Personal Pager #[phone] 11/03/2019 1:04 PM * Charlene Louis MD - 11/02/2019 12:05 PM EDT [facility] NEUROSURGERY OPERATIVE NOTE Patient: Josue Nguyen : 1945 DATE OF PROCEDURE: 11/02/2019 ATTENDING SURGEON: Dr. Casey Singh MD DESPATCH CLERK SURGEON: Dr. Charlene Louis MD PREOPERATIVE DIAGNOSIS: [...] 30 degrees in the neutral position. A Ovando Time-Out Protocol was performed, and the operative [...] Judge MD - 11/02/2019 11:12 AM EDT [facility] Department of Neurology Critical Care Continuous EEG Report Patient: Josue Nguyen, [id number] Date: 11/02/19 Start Time: 11/02/19 03:13 End Time: 11/02/19 07:30 Fellow: Osbaldo Judge MD Attending: Vinnie Gary MD PhD History: 74 yo M with a large left SDH and episodes of confusion concerning for seizures. Methods: A 21 channel digitized electroencephalogram was performed in the Neurologic Critical Care Unit by the [facility] Clinical Neurophysiology Laboratory. The 10/20 international system [...] Judge MD 11/02/2019 11:12 AM Personal pager: [phone] Epilepsy Fellow Associated attestation - Vinnie Gary Jr., MD - 11/02/2019 12:56 PM EDT I have reviewed the EEG with the fellow and agree with the assessment above. This recording appearsessentially normal, aside from moderate bradycardia. Vinnie Gary MD, PhD Department of Neurology Personal Pager #[phone] 11/02/2019 12:56 PM documented in this encounter ED Notes * Alissa Garnica NRP - 11/01/2019 10:48 PM EDT Neuro provider bedside for eval * Alissa Garnica NRP - 11/01/2019 9:39 PM EDT Providers bedside for eval. Pt still alert/oriented but drowsy. Daughter Loretta updated by phone, would like update when plan is in place: [phone] * Winter Tsang RN - 11/01/2019 9:27 PM EDT [...] headache, reports headache as worstever. Neuro surge CLINICAL BUSINESS MANAGER paged and made aware of change in [...] and type II [facility] a [facility] hematoma found on [...] Temp src Pulse Resp SpO2 Height Weight 11/01/192114 138/69 -- -- 54 18 95 % -- -- 11/01/192044 99/72 -- -- 68 16 97 % -- -- 11/01/191999 128/71 -- -- 54 21 97 % -- -- 11/01/191944 136/75 -- -- 58 20 98 % -- -- 11/01/191929 131/69 -- -- 59 23 98 % [...] Neurosurgery service. Kristian Macario MD Resident 11/01/19 9252 Associated attestation - Camila Troy MD - [...] 11/01/2019 7:34 PM EDT Pt arrived from [facility] after dx of L SDH. Pt reporting [...] I accepted in transfer from Dr. Brown, [facility] ED The patient will be evaluated in the Emergency Department for right leg weakness and left SDH The EM team will contact the neurosurgery team as needed The OSH does not agree to take the patient back in transfer after our evaluation and treatment. Transfer and stabilization prior to transfer were not discussed 74 yo m who presented to the [facility] ED with right leg weakness. CT revealed a large left subdural withsome midline shift. Pt. awake . Not on anticoagulation. 36.5 64 168/73 15 97%. Dr. Reyes from [facility] on the call. Pt. will be transferred to the [facility] ED to be seen by the ED team and by neurosurgery. Nirav Romero MD 11/01/19 1641 documented in this encounter Miscellaneous Notes * Care Management - Chhaya Olivarez RN - 11/16/2019 4:28 PM EDTSummary: Discharge planning D/C planning: Team: Neurosurg Pager: [phone] Pt to d/c to [facility] acute rehab via ambulance at 5:45pm today. Pt is aware of d/c plan and isin agreement. Chhaya Olivarez MSN, RN CM harmonic analyst Office of Care Management Pager #[phone] * Plan of Care - Kary Saeed [...] documented. * Plan of Care - Syd Kaiser, EMILY - 11/16/2019 11:33 AM EDT Physical Therapy [...] morning Social History: Home set-up: Lives in [facility] () in an apartment Bathroom Set-up: tub [...] Severe Impairment: Cannot do safely. FINAL SCORE: 15 Note: After test, pt had two instances of loss of balance while turning requiring Alexsander to prevent fall. Possibly r/t fatigue References: 1. Norma Romo, Ellie J, Carlos Hairston. Reliability of the Dynamic Gait Index in individuals with neurological disorders, Disabil Rehabil. 2012; 34(19): 0209-6404. 2. Parrachel PK, Maryann NK, Jetter AM, et al. Sensitivity to Change and Responsiveness of Four Balance Measures for Community-Dwelling Older Adults, Facilities Maintenance Assistant. 2012; 92: 388-397. 3. Marcus DEVINE. Vestibular Rehabilitation. 2nd ed. [place], [place]: [employer]; 1999. 4. Arsenio Hairston, Gustavo Ramirez. Motor Control Theory and Applications, Jaime and Davis Garber, 1995: 323-324 Education: patient has been educated [...] Total Evaluation Minutes, Physical Therapy: 30(TEF, TEN ([phone])) Syd Kaiser, ANIMAL EVISCERATOR Pager: [phone] Physical Therapy Inpatient Rehabilitation Department * Consult Note - Shannon Garcia MD - 11/16/2019 6:10 AM EDT Neurology Progress Note 11/16/2019 Patient Name: Josue Nguyen Admit Date: 11/01/2019 Patient ID: Josue Nguyen is a 74 y.o. presenting with PMHx of HTN, HLD, DM2 who presents in transfer from [facility] with a LEFT subdural hematoma (presumed acute [...] L Elbow flexion 4/5 R, 5/5 L Philatelic Consultant LE: 4/5 R, 5/5 L Hip flexion [...] HLD, DM2 who presents in transfer from [facility] with a LEFT subdural hematoma (presumed acute [...] Neurology Resident 11/16/2019 Neurology Consult Service Pager #[phone] Associated attestation - Winter Hays MD - 11/17/2019 10:52 PM EDT Neurology Attending Note Winter Hays MD (Pg [phone]) I certify that I have seen and examined Josue Nguyen on 11/16/[address] Garcia. I reviewed the resident's history and I agree with the details as written. The assessment and plan were formulated in discussion with me and I agree with them as documented. * Plan of Care - Basilia Rowe RN - 11/16/2019 3:26 AM EDT Problem: [...] Minimal 1 assist Surveillance [continuous indirect monitoring]: quality assurance monitor, pulse oximetry, purposeful hourlyrounding, call reddy [...] HLD, DM2 who presents in transfer from [facility] with a LEFT subdural hematoma (presumed acute [...] L Elbow flexion 4/5 R, 5/5 L Philatelic Consultant LE: 4/5 R, 5/5 L Hip flexion [...] HLD, DM2 who presents in transfer from [facility] with a LEFT subdural hematoma (presumed acute [...] Neurology Resident 11/15/2019 Neurology Consult Service Pager #[phone] Associated attestation - Winter Hays MD - 11/16/2019 4:49 PM EDT Neurology Attending Note Winter Hays MD (Pg [phone]) I certify that I have seen and [...] for d/c. Chhaya Olivarez MSN, RN CM harmonic analyst Office of Care Management Pager #[phone] * Plan of Care - Adia Edwards OT - 11/15/2019 11:34 AM EDT Occupational Therapy Treatment Note Treatment Number OT: 5 Patient profile: Per MD on 11/14: 74 y.o.??male??with PMH of HTN, HLD, and DM with progressively worsening RIGHT sided weakness found to have a large LEFT frontal/parietal mixed attenuation SDH. 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 His waxing and waning [...] Laterality Date ??? PRO PERM OCCLUSION/EMBOLIZATION, PERCUT, LOTTERY CLERK N/A 11/03/2019 ?? @TRANSCATHETER OCCLUSION/EMBOLIZATION FOR TUMOR DESTRUCTION performed by Hussain Christianson MD at [facility] ??? TONSILLECTOMY ? Social History: [...] difficulty this session ?? 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 Infiltration/Extravasation Scale Josue Nguyen [id number] N524/N524-A Infiltration appearance: Infiltration harm % for [...] AM Name of Plastics MD (if consulted) RADIOLOGY SUPERVISOR CARING FOR THIS PATIENT WILL CONTINUE TO [...] lasting ~10minutes, MD notified. Pt voiding frequently, MD notified, no new orders. Subgaleal drain removed. PLAN MOVING FORWARD: ?? B9hbgct/ N7nkcym checks NPO at midnight for embolization in [...] Review Outcome: Ongoing (Interventions Implemented as Appropriate) 11/12/19 1922 Coping/Psychosocial Plan Of Care Reviewed With patient Plan of Care Review Progress progress towards functional goals is fair OUTCOME EVALUATION NOTE: ?? OUTCOME SUMMARY: ?? Pt A+Ox4, intermittent expressive aphasia. 1700- Pt with aphasia and confusion, MD Louis to bedside. Pt able to describe that he can feel when he isn't able to speak after episode of aphasia passed. Subgaleal drain remains in place, producing sanguinous drainage. ?? PLAN MOVING FORWARD: ?? Y8ysiwq/vital checks Monitor subgaleal drain ?? INDIVIDUALIZED FALL [...] * Plan of Care - Dawn Addison Yovanny - 11/12/2019 1:15 PM EDT Occupational Therapy [...] Laterality Date ??? PRO PERM OCCLUSION/EMBOLIZATION, PERCUT, LOTTERY CLERK N/A 11/03/2019 ?? @TRANSCATHETER OCCLUSION/EMBOLIZATION FOR TUMOR DESTRUCTION performed by Hussain Christianson MD at [facility] ??? TONSILLECTOMY ? Social History: [...] Pt participated in the administration of the Steven Cognitive Assessment, (MOCA). Pt received a score of 22/30, with a score of 26 or greater being considered a normal score. Pt demonstrated impairments in the areas of Visospatial/ Execution, Fluency, and Delayed Recall. Steven Cognitive Assessment (MoCA) Results: Visuospatial/Exec 1/ Trails Test 0/1 Cube Copy 04/20 Clock: Contour 04/20 Clock: Numbers 0/ Clock: Hands Naming 3/3 (of 3) Attention / Repeat forward 04/20 Repeat backwards 04/20 Tapping for letter A 3/3 Serial 7 Subtraction (3pts=4+; 2pts=2+; 1pt=1) Language 2/2 Repeating Sentences Fluency 0/1 Word Naming (1pt=11+ words) Abstraction 2/2 Similarities (Associations) Delayed Recall 0/5 (uncued) Orientation 04/20 Month 04/20 Date 04/20 Year 04/20 Day of the week 04/20 Location 04/20 City Add 1 point if 12 years of education or less TOTAL 22/30 Score of 26 or greater considered normal ?? 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 Attempted to call daughterLoretta (point of contact) for nursing update but no answer at this time. PLAN MOVING FORWARD: D1olvnb/vital checks Monitor subgaleal drain INDIVIDUALIZED FALL PREVENTION [...] assist with d/c planning as needed. Chhaya PALOMINO, RN CM harmonic analyst Office of Care Management Pager #[phone] * Plan of Care - Syd Kaiser [...] done Social History: Home set-up: Lives in [facility] () in an apartment Bathroom Set-up: tub [...] Total Evaluation Minutes, Physical Therapy: 30(GT, CHANDRIKA ([phone])) Syd Kaiser, ANIMAL EVISCERATOR Pager: [phone] Physical Therapy Inpatient Rehabilitation Department * Plan [...] placed on 11/02. LLA embolization on 11/02. [place] holes for DSH drainage 11/10/19. ?? Past Medical History Past Medical History: Diagnosis Date ??? Diabetes mellitus ? Hypertension ? Past Surgical History Past Surgical History: Procedure Laterality Date ??? PRO PERM OCCLUSION/EMBOLIZATION, PERCUT, LOTTERY CLERK N/A 11/03/2019 ?? @TRANSCATHETER OCCLUSION/EMBOLIZATION FOR TUMOR DESTRUCTION performed by Hussain Christianson MD at [facility] ??? TONSILLECTOMY ? Social History: [...] ambulated ~150ft with FWW and CGA with BLOW TORCH BURNER and returning to room ?? Cognition: ?? [...] requested to stop. ?? 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 Vitals: 107/53, HR 67, O2 98 [...] Therapy: 10 ; 1 cog skills Pager: [phone] Adia Edwards OT Occupational Therapy Rehabilitation Department [...] had not been changed since preop. DINO SIMS increased pain management which has been effective [...] OUTCOME EVALUATION: Goal: Fall Prevention-Safe Patient Handling 11/06/19152911/10/19 0811/10/191999 Daily Care Interventions Self-Care Promotion independence encouraged;BADL [...] still a patient Goal: Interdisciplinary Rounds/Family Conf 11/06/191529 Interdisciplinary Rounds/Family Conf Participants family;advanced practice nurse;nursing;patient;physician * Plan of Care - Frances Cuevas RN - 11/10/2019 6:02 PM EDT Problem: Patient Care Overview Goal: Plan of Care Review 11/10/19 2364 Coping/Psychosocial Plan Of Care Reviewed With patient [...] Hematoma. POSTOPERATIVE DIAGNOSIS: 1. Same OPERATION/PROCEDURE: 1. [place] hole for evacuation of left subdural hematoma [...] the head turned to the right. A Ovando Time-Out Protocol was performed, and the operative [...] bluntly dissected Bovie electrocautery and a #1 [place]. A high-speed drill with a pr intern bit was used to place bur holes [...] Operative Note Patient Name: Josue Nguyen : [id number] MR#: [id number] Case Date: 11/10/2019 Surgeon: Surgeon(s) and Role: [...] Operative Note Patient Name: Josue Nguyen : [id number] MR#: [id number] Case Date: 11/10/2019 Surgeon: Surgeon(s) and Role: * Addy Banks MD - Primary * Masoud Babcock MD - Resident * Tu Reyes MD - Resident Preoperative diagnosis: Subdural hematoma Postoperative diagnosis: Subdural hematoma Procedure(s) (LRB): @CRANI-SUB\EXTRADURAL HEMATOMA EVAC, PEDRO PABLO HOLE (VU 17.07) (Left) Anesthesia: Anesthesia type not filed [...] Adia Edwards MS, OTR/L Occupational Therapist Pager: [phone] Inpatient Rehabilitation Services * Plan of Care [...] this time in hospital course [ ] [facility] * Plan of Care - Danial [...] is going to OR for Crani today. [facility] is considering for potential admit. Potential barrier could be post rehab d/c plan as pt lives alone. This CM will reach out to family regarding what support they could offer post rehab. Pt will need insurance auth prior to going to [facility] if a bed is offered. CM will continue to monitor and assist with d/c planning as needed. Chhaya Olivarez MSN, RN CM harmonic analyst Office of Care Management Pager #[phone] * Consult Note - Oralia Patel Felicia - 11/08/2019 9:02 PM EDT Neurology Progress Note 11/08/2019 Patient Name: Josue Nguyen Admit Date: 11/01/2019 Patient ID: Josue Nguyen is a 74 y.o. presenting with PMHx of HTN, HLD, DM2 who presents in transfer from [facility] with a LEFT subdural hematoma (presumed acute [...] story. History obtained from bedside nurse and computer forensics technician and confirmed with patient. Physical Exam: [...] L Elbow flexion 4/5 R, 5/5 L Philatelic Consultant LE: 4/5 R, 5/5 L Hip flexion [...] HLD, DM2 who presents in transfer from [facility] with a LEFT subdural hematoma (presumed acute [...] Neurology Resident 11/08/2019 Neurology Consult Service Pager #[phone] Associated attestation - Josue Reyes MD - 11/14/2019 5:01 PM EDT Neurology Attending Note Josue Reyes MD PhD (pager [phone]) I have seen and examined Josue Nguyen [...] Social History: Home set-up: Lives in [facility] () in an apartment Bathroom Set-up: tub [...] Total Evaluation Minutes, Physical Therapy: 37(TEF, GT, CHANDIRKA ([phone])) Syd Kaiser, ANIMAL EVISCERATOR Pager: [phone] Physical Therapy Inpatient Rehabilitation Department * Plan [...] Laterality Date ??? PRO PERM OCCLUSION/EMBOLIZATION, PERCUT, LOTTERY CLERK N/A 11/03/2019 ?? @TRANSCATHETER OCCLUSION/EMBOLIZATION FOR TUMOR DESTRUCTION performed by Hussain Christianson MD at [facility] ??? TONSILLECTOMY ? Social History: [...] ?? Safety awareness: WFL ?? Upon this copy writer entering Pt room; noted with decreased ability to follow one step commands and make wants and needs known. Therapist alerted RN; when RN performed neuro-check Pt oriented x4. ?? Pt then noted with ability to maintain orientation during session with occasional word finding difficulties ?? 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 Vitals: 97/53, HR 68, O2 98 [...] Minutes, Occupational Therapy: 29(2 SC ) Pager: [phone] Adia Edwards OT Occupational Therapy Rehabilitation Department [...] assessment pt noted to be neurologically intact, MD made aware. Continues to be monitored. Breathing spontaneously in room air and maintaining oxygenation. Hemodynamically stable. Voiding spontaneously in urine;adequate arturo urine. Hygiene needs met. Tolerating meals. Skin dry and intact. Ambulated around pod and BR with nurse and walker; pt encourage to ambulate more. Surgery postpone for tomorrow, IVF D/C. Daughter called for update from MD and concerned about confusion, team paged; for [...] this time in hospital course [ ] [facility] Goal: Fall Prevention-Safe Patient Handling Outcome: [...] this time in hospital course [ ] [facility] * Plan of Care - Enoc [...] this time in hospital course [ ] [facility] Goal: Infection Control Outcome: Ongoing (Interventions [...] this time in hospital course [ ] [facility] Goal: Fall Prevention-Safe Patient Handling Outcome: Ongoing (Interventions Implemented as Appropriate) 11/06/19 0745 11/06/19 0900 11/06/19 1445 Daily Care Interventions Self-Care Promotion -- [...] Control Outcome: Ongoing (Interventions Implemented as Appropriate) 11/06/19 0745 11/06/19 1445 Safety Interventions Isolation Precautions -- standard [...] Conf Outcome: Ongoing (Interventions Implemented as Appropriate) 11/06/19 1530 Interdisciplinary Rounds/Family Conf Participants family;advanced [...] EVALUATION NOTE: OUTCOME SUMMARY: PT A/Ox4. Strengths 5/5. Fine motor deficits noted in RUE. PERRLA. [...] Control Outcome: Ongoing (Interventions Implemented as Appropriate) 11/04/19199911/05/19399 Safety Interventions Isolation Precautions -- standard precautions [...] effect. Now complaining of 10/10 heart burn. MD notified, new orders for EKG & stat [...] discharge. ?? I have met with the patient/support representative to discuss discharge planning needs. I have provided the [facility], Office of Care Management letter from the Optoelectronics Engineer pertaining to rehab referrals. I have also provided a letter describing our affiliations within the [facility] and educated them about their right to choose where referrals are. ?? Provided patient with CMS Star Quality Rating for SNF, LTAC and/or IRF hand out. ?? I reviewed the different levels of rehab including SNF, swing, acute and LTAC with the patient/support representative. ?? The patient/support representative has been provided a list of facilities within their preferred geographic area. ?? I have requested that the patient/support representative provide at least three choices for referral. ?? The patient/support representative have requested referrals to: ?? 1. [facility] ?? Expected date of discharge: 11/07/19 Note routed to Switchbox Assembler who will communicate referrals to facilities and provide any required information. Chhaya PALOMINO, RN CM harmonic analyst Office of Care Management Pager #[phone] * Plan of Care - Steffen Almazan, PT - 11/04/2019 10:36 AM EDT Physical [...] Laterality Date ??? PRO PERM OCCLUSION/EMBOLIZATION, PERCUT, LOTTERY CLERK N/A 11/03/2019 @TRANSCATHETER OCCLUSION/EMBOLIZATION FOR TUMOR DESTRUCTION performed by Hussain Christianson MD at [facility] ??? TONSILLECTOMY Active Non-Hospital Problems Diagnosis ??? Basal cell carcinoma ??? Tinea pedis Social History: Home set-up: Lives in 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 Time IN / OUT: 8587-1259 Total Evaluation Minutes, Physical Therapy: 32(eval; TEF) Steffen Almazan, PT Pager: [phone] Physical Therapy Inpatient Rehabilitation Department * Plan [...] Laterality Date ??? PRO PERM OCCLUSION/EMBOLIZATION, PERCUT, LOTTERY CLERK N/A 11/03/2019 @TRANSCATHETER OCCLUSION/EMBOLIZATION FOR TUMOR DESTRUCTION performed by Hussain Christianson MD at [facility] ??? TONSILLECTOMY Social History: Patient [...] (end of session) HR 55bpm ? Pain: 3/10 head Skin: Appears intact Education: patient have [...] planning. Total Evaluation Minutes, Occupational Therapy: 36 2017 OT Evaluation Code Rationale: ?? Diagnosis & [...] and measurable assessment of functional outcome. Pager: [phone] NEELAM FLANAGAN OT 11/04/2019 Occupational Therapy Rehabilitation Department * Plan of Care - Angela Ervin RN - 11/04/2019 7:02 AM EDT Problem: Patient Care Overview Goal: Plan of Care Review Outcome: Ongoing (Interventions Implemented as Appropriate) 11/04/19 0700 Coping/Psychosocial Plan Of Care Reviewed With patient [...] Operators: Attending: Hussain Christianson MD Resident/Fellow/Student: Amor Q Singletary, DO Post-operative diagnosis/Indication: LEFT subdural hematoma, acute on chronic Name of Procedure Performed: Planned procedure: LEFT middle meningeal artery embolization Brief description of the procedure: ?? Right [place] access with micropuncture technique and placement of [...] with 250 um Embozene particles ?? Right [place] roadmap ?? Closure of right [place] access with Mynx closure device Findings of [...] as able/appropriate. Steffen Almazan PT, DPT Pager [phone] Inpatient Rehabilitation * Plan of Care - Adia Edwards, OT - 11/03/2019 1:01 PM EDT Occupational Therapy Contact Note: Order received and chart reviewed. Per RN; Pt on bedrest and awaiting embolization later today. Plan to follow-up tomorrow as Pt is appropriate and as activity orders are updated. Adia Edwards MS, OTR/L Occupational Therapist Pager: [phone] Inpatient Rehabilitation Services * Consult Note - Shannon Garcia MD - 11/03/2019 6:44 AM EDT Neurology Inpatient Consult Note - 11/03/2019 Admit date: 11/01/2019 Attending: Casey Singh MD ID: Josue Nguyen is a 74 y.o. male with PMHx of HTN, HLD, DM2 [facility] (presumed acute on [...] 5 mg Oral Daily Bogdan, Maty A, CLINICAL BUSINESS MANAGER 5 mg at ??? metFORMIN (Glucophage) tablet 1,000 mg 1,000 mg Oral BID WC Bogdan, Maty A, CLINICAL BUSINESS MANAGER 1,000 mg at 11/02/19 1753 ??? sodium chloride 0.9 % (flush) flush 5 mL 5 mL Intravenous BID Bogdan, Maty A, CLINICAL BUSINESS MANAGER 5 mL at 11/02/19 2100 ??? sodium chloride 0.9 % (flush) flush 5-20 mL 5-20 mL Intravenous Q1 Min PRN Bogdan, Maty A, CLINICAL BUSINESS MANAGER ??? lidocaine (XYLOCAINE) 10 mg/mL (1 %) injection 3 mg 0.3 mL Subcutaneous Once PRN Bogdan, Maty A, CLINICAL BUSINESS MANAGER ??? docusate sodium (Colace) capsule 100 mg 100 mg Oral BID Bogdan, Maty A, CLINICAL BUSINESS MANAGER 100 mg at ??? ondansetron (Zofran) tablet 4-8 mg 4-8 mg Oral Q8H PRN Bogdan, Maty A, CLINICAL BUSINESS MANAGER Or ??? ondansetron (ZOFRAN) injection 4-8 mg 4-8 mg Intravenous Q8H PRN Bogdan, Maty A, CLINICAL BUSINESS MANAGER ??? acetaminophen (Tylenol) tablet 650 mg 650 mg Oral Q4H PRN Bogdan, Maty A, CLINICAL BUSINESS MANAGER 650 mg at 11/02/19 1838 Or ??? acetaminophen (Tylenol) suppository 650 mg 650 mg Rectal Q4H PRN Bogdan, Maty A, CLINICAL BUSINESS MANAGER ??? labetalol (NORMODYNE,TRANDATE) injection 10-20 mg 10-20 mg Intravenous Q1H PRN Bogdan, Maty A, CLINICAL BUSINESS MANAGER ??? hydrALAZINE (APRESOLINE) injection 10 mg 10 mg Intravenous Q1H PRN Bogdan, Maty A, CLINICAL BUSINESS MANAGER ??? levETIRAcetam (Keppra) tablet 500 mg 500 mg Oral BID Bogdan, Maty A, CLINICAL BUSINESS MANAGER 500 mg at 11/02/192026 Or ??? levETIRAcetam (KEPPRA) 500 mg in sodium chloride 0.82% 100 mL 500 mg Intravenous BID Bogdan, Maty A, CLINICAL BUSINESS MANAGER ??? glucose (GLUTOSE) 40% oral geL 15-30 g Buccal Q30 Min PRN Bogdan, Maty A, CLINICAL BUSINESS MANAGER Or ??? dextrose 10% infusion 250 mL Intravenous Q30 Min PRN Bogdan, Maty A, CLINICAL BUSINESS MANAGER Or ??? glucagon (human recombinant) injection SolR 1 mg 1 mg Intramuscular Q30 Min PRN Bogdan, Maty A,CLINICAL BUSINESS MANAGER ??? insulin lispro (HumaLOG) VIAL injection 1-5 Units 1-5 Units Subcutaneous TID AC Bogdan, Maty A,CLINICAL BUSINESS MANAGER ??? ceFAZolin (ANCEF) 1g in dextrose 5% 50mL 1 g Intravenous Q8H Charlene Louis MD Stopped at 11/03/19 0431 ??? 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 x Recommendations are above, please page [phone] if further consultation is required. Shannon Garcia MD Neurology, PGY-3 Consult Neurology Service #[id number] 11/03/2019 Associated attestation - Josue Reyes MD - 11/13/2019 7:30 PM EDT Neurology Attending Note Josue Reyes MD PhD (pager [phone]) I have seen and examined Josue Nguyen [...] this time in hospital course [ ] [facility] * Care Management - Chhaya Olivarez RN - 11/02/2019 3:55 PM EDT This CM along with BEHAVIORIST called and spoke to pt's dtr to gather more information for d/c planning. Dtr,Loretta, stated that pt was very independent and active in the community prior to hospitalization.Due to the remote location of where the pt lives, there is very limited community support. Loretta states pt has a friend, Guadalupe, who lives in [place], [place] and a grandson, ex-son in law who livesin [place], [place]. Pt's dtr is very supportive, but lives in [place]. Pt's dtr stated she would be happy to support her father going for a rehab stay prior to returning home and VNA afterward if needed. Per dtr, pt has not had VNA, but pt's has prior to her passing. Also, pt has been to [facility] in the past. Pt's dtr stated concern of COVID exposure, pt's dtr was educated on the screening process for pt's coming into facilities and staff prior to coming into buildingsfor work daily. CM will continue to monitor and assist with d/c planning as needed. Chhaya Olivarez MSN, RN CM harmonic analyst Office of Care Management Pager #[phone] * Initial Assessments - Biju Lewis MSW - 11/02/2019 8:05 AM EDT Office of Care Management Initial Assessment JENNIFER Vega reviewed record and discussed patient with Care Team. Source of Information: Patient (slow and whimsical in responses), Chart, Treatment Team Introduced self/reviewed role; services accepted. Reason for Hospitalization: transfer from [facility] with a LEFT subdural hematoma (presumed acute [...] note- 11/02/2019 ??2:58 AM) Home Environment: [facility] Social & Family Supports/Community Resources: daughter in [place], daughter in [place], sister in [place], wifes family, friends Behavioral Health History: a major period of anxiety following 's of COPD Substance Use/Abuse: Tobacco Use ??? Smoking status: Former Smoker- quit in 2002 ??? Smokeless tobacco: Never Used Substance Use Topics ??? Alcohol use: once of twice per year ??? Drug use: No Other Pertinent/Service Specific Information: worked at [facility] [employer] for a decade Health/Prescription Coverage: Primary Insurance: [facility] MANAGED MEDICARE Secondary Insurance: N/A Prescription Coverage: yes Preferred Pharmacy: [facility] Primary Care Provider: Shyam Harvey MD [phone] Patient/Caregiver Goals of Treatment: To be independent Potential Needs for Transition of Care: Rehab/SNF: [facility] Home Health: Never had agreed to [place] if required DME: :I just got a can last week when this started to get bad Dialysis:NA Community Resources: Available Transportation: states he has plenty of people to take him home but sister from [place] called bedside nurse to say she is uncertain if he can get a ride from anyone Anticipated Barriers to Discharge/Special Considerations: none Assessment: 74 y.o. male with PMH of HTN, HLD, and DM who presented to the ED at [facility] after having an outpatient CT scan that [...] transition of care planning. JENNIFER Vega Pager: [phone] * Consult Note - Daquan Kline MD - 11/02/2019 2:58 AM EDT Neurology Inpatient Consult Note - 11/02/2019 Admit date: 11/01/2019 Attending: Casey Singh MD ID: Josue Nguyen is a 74 y.o. male with PMHx of HTN, HLD, DM2 who [facility] (presumed acute on [...] 5 mg Oral Daily Bogdan, Maty A, CLINICAL BUSINESS MANAGER ??? metFORMIN (Glucophage) tablet 1,000 mg 1,000 mg Oral BID WC Bogdan, Maty A, CLINICAL BUSINESS MANAGER ??? docusate sodium (Colace) capsule 100 mg 100 mg Oral BID Bogdan, Maty A, CLINICAL BUSINESS MANAGER ??? ondansetron (Zofran) tablet 4-8 mg 4-8 mg Oral Q8H PRN Bogdan, Maty A, CLINICAL BUSINESS MANAGER Or ??? ondansetron (ZOFRAN) injection 4-8 mg 4-8 mg Intravenous Q8H PRN Bogdan, Maty A, CLINICAL BUSINESS MANAGER ??? acetaminophen (Tylenol) tablet 650 mg 650 mg Oral Q4H PRN Bogdan, Maty A, CLINICAL BUSINESS MANAGER Or ??? acetaminophen (Tylenol) suppository 650 mg 650 mg Rectal Q4H PRN Bogdan, Maty A, CLINICAL BUSINESS MANAGER ??? labetalol (NORMODYNE,TRANDATE) injection 10-20 mg 10-20 mg Intravenous Q1H PRN Bogdan, Maty A, CLINICAL BUSINESS MANAGER ??? hydrALAZINE (APRESOLINE) injection 10 mg 10 mg Intravenous Q1H PRN Bogdan, Maty A, CLINICAL BUSINESS MANAGER ??? levETIRAcetam (Keppra) tablet 500 mg 500 mg Oral BID Bogdan, Maty A, CLINICAL BUSINESS MANAGER Or ??? levETIRAcetam (KEPPRA) 500 mg in sodium chloride 0.82% 100 mL 500 mg Intravenous BID Bogdan, Maty A, CLINICAL BUSINESS MANAGER ??? glucose (GLUTOSE) 40% oral geL 15-30 g Buccal Q30 Min PRN Bogdan, Maty A, CLINICAL BUSINESS MANAGER Or ??? dextrose 10% infusion 250 mL Intravenous Q30 Min PRN Bogdan, Maty A, CLINICAL BUSINESS MANAGER Or ??? glucagon (human recombinant) injection SolR 1 mg 1 mg Intramuscular Q30 Min PRN Bogdan, Maty A,CLINICAL BUSINESS MANAGER ??? insulin lispro (HumaLOG) VIAL injection 1-5 Units 1-5 Units Subcutaneous TID AC Bogdan, Maty A,CLINICAL BUSINESS MANAGER ??? 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 Recommendations are above, please page [phone] if further consultation is required. Patient discussed with Dr. Fely Santos. Daquan Kline MD Neurology, PGY-4 Consult Neurology Service #[id number] 11/02/2019 Associated attestation - Josue Reyes MD - 11/10/2019 3:26 AM EDT Neurology Attending Note Joseu Reyes MD PhD (pager [phone]) I have seen and examined Josue Nguyen [...] Denies any s/s currently. 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 documented in this encounter Plan of Treatment [...] 8:43 AM EDT Perm Occlusion/Embolization , Percut, Horse Identifier ([id number]) 11/14/2019 7:44 AM EDT Left side Cognard [...] PABLO HOLE Routine 11/10/2019 2:08 PM EDT POCT GLUCOSE Routine 11/10/2019 11:30 AM EDT [...] ARTERIAL POC Routine 0 3:04 PM EDT POCT GLUCOSE Routine 11/03/2019 12:13 PM EDT [...] 11/02/2019 1:01 AM EDT RAPID COVID-19 PCR ([facility]) STAT 11/01/2019 11:17 PM EDT ABORH RECHECK [...] density of left-sided subdural hematoma with improved wgsz-hu-egjvb midline shift. 2. ??Interval treatment of known [...] cm. Mass effect has improved. Improvement of gfam-iu-psmxm midline shift which is now minimal. The [...] 1.8 cm. Mass effect hasimproved. Improvement of wqlg-is-rwnut midline shift which is now minimal. Thebasilar cisterns remain patent. No acute intracranial hemorrhage, mass,hydrocephalus, or evidence of large acute infarction. Left-sided pedro pablo hole craniotomychanges are again noted. IMPRESSION 1. Interval improvement in size and density of left-sided subduralhematoma with improved sdqh-ry-hdvuh midline shift. 2. 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 Thank you for letting us participate in the care of this patient. Forquestions regarding this report, please contact the number below. Electronically signed by: Alley [facility] ([phone]),at 12/23/2019 12:15 PM Casey Singh MD IMG CT ORDERABLES * POCT Glucose (11/16/2019 4:08 PM EDT) Glucose, POC 108 65 - 199 mg/dL [facility] Comment: Supplemental ranges: <140 mg/dL before meals <180 mg/dL all other times of the day Blood specimen (specimen) 11/16/2019 4:08 PM EDT 11/16/2019 4:08 PM EDT Casey Singh MD POINT OF CARE TEST O LORI Performing Organization Address [facility]/ZIP Co de Phone Number [facility] [place] [place] [address] * POCT Glucose (11/16/2019 12:15 PM EDT) Glucose, POC 104 65 - 199 mg/dL [facility] Comment: Supplemental ranges: <140 mg/dL before meals <180 mg/dL all other times of the day Blood specimen (specimen) 11/16/2019 12:15 PM EDT 11/16/2019 12:15 PM EDT Casey Singh MD POINT OF CARE TEST O RDERAPAMELA [facility] [place] [place] [address] * POCT Glucose (11/16/2019 7:48 AM EDT) Glucose, POC 109 65 - 199 mg/dL [facility] Comment: Supplemental ranges: <140 mg/dL before meals <180 mg/dL all other times of the day Blood specimen (specimen) 11/16/2019 7:48 AM EDT 11/16/2019 7:48 AM EDT Casey Singh MD POINT OF CARE TEST O RDERABLES Performing Organization Address City/[facility]/ZIP Co de Phone Number [facility] [place] [place] [address] * POCT Glucose (11/15/2019 8:00 PM EDT) Glucose, POC 111 65 - 199 mg/dL [facility] Comment: Supplemental ranges: <140 mg/dL before meals <180 mg/dL all other times of the day Blood specimen (specimen) 11/15/2019 8:00 PM EDT 11/15/2019 8:00 PM EDT Casey Singh MD POINT OF CARE TEST O RDERABLES Performing Organization Address [facility] Co de Phone Number [facility] [place] [place] [address] * Valproic Acid Level, Total (11/15/2019 4:31 PM EDT) Valproic Acid 43 mg/L [facility] Comment: Therapeutic Range: Anticonvulsant Therapy: ??50-100 mg/L Manic Episodes Associated with Bipolar Disorder: ??50-125 mg/L Blood specimen (specimen) 11/15/2019 4:31 PM EDT 11/15/2019 4:48 PM EDT Narrative Resulting Agency Comment Spec In Lab Casey Singh MD CHEMISTRY ORDERABLES Performing Organization Address City/[facility]/ZIP Co de Phone Number [facility] [place] [place] [address] * POCT Glucose (11/15/2019 4:09 PM EDT) Glucose, POC 114 65 - 199 mg/dL [facility] Comment: Supplemental ranges: <140 mg/dL before meals <180 mg/dL all other times of the day Blood specimen (specimen) 11/15/2019 4:09 PM EDT 11/15/2019 4:09 PM EDT Casey Singh MD POINT OF CARE TEST O RDERABLES [facility] [place] [place] [address] * CT Head wo Contrast (Generic) (11/15/2019 [...] Local mass effect is stable with unchanged bnqa-nd-lkpra midline shift of 4 mm. The basal [...] Local mass effect is stable with unchanged mxkb-gr-nhnzy midline shift of4 mm. The basal cisterns [...] number below. Electronically signed by: Alley [facility] ([phone]),at 11/15/2019 3:43 PM Casey Singh MD IMG CT ORDERABLES * POCT Glucose (11/15/2019 11:56 AM EDT) Glucose, POC 114 65 - 199 mg/dL [facility] Comment: Supplemental ranges: <140 mg/dL before meals <180 mg/dL all other times of the day Blood specimen (specimen) 11/15/2019 11:56 AM EDT 11/15/2019 11:56 AM EDT Casey Singh MD POINT OF CARE TEST O RDERABLES [facility] [place] [place] [address] * POCT Glucose (11/15/2019 8:07 AM EDT) Glucose, POC 113 65 - 199 mg/dL [facility] Comment: Supplemental ranges: <140 mg/dL before meals <180 mg/dL all other times of the day Blood specimen (specimen) 11/15/2019 8:07 AM EDT 11/15/2019 8:07 AM EDT Casey Singh MD POINT OF CARE TEST O RDERABLES [facility] [place] [place] [address] * Differential, Automated (11/15/2019 1:36 AM EDT) Neutrophil % 57.7 % [facility] Neutrophil Absolute 3.41 1.70 - 6.10 x10(3)/[facility] Lymph % 25.8 % [facility] Lymphocytes Abs 1.5 0.9 - 3.2 x10(3)/[facility] Monocyte % 13.0 % [facility] Monocyte Abs 0.8 0.3 - 0.9 x10(3)/[facility] Eos % 2.0 % [facility] Eosinophils Abs 0.1 0.0 - 0.4 x10(3)/[facility] Basophil % 1.0 % [facility] Baso Absolute 0.1 0.0 - 0.1 x10(3)/[facility] Immature Gran % 0.50 % [facility] Comment: Immature granulocytes(IG's)percentage and absolute count will include metamyelocytes, myelocytes, and promyelocytes. Blood smears from CBCs yielding IG's will be scanned manually for concordance. If this scan disagrees with the automated IG or if promyelocytes are noted, a manual differential will be performed. Immature Gran Absolute 0.03 0.00 - 0.04 x10(3)/[facility] Blood specimen (specimen) 11/15/2019 1:36 AM EDT 11/15/2019 2:02 AM EDT Narrative Resulting Agency Comment Spec In Lab Tu Reyes MD HEMATOLOGY ORDERABLE S Performing Organization Address City/[facility]/ZIP Co de Phone Number [facility] [place] [address] * (ABNORMAL) Hemogram (11/15/2019 1:36 AM EDT) White Blood Cell 5.9 4.0 - 9.5 x10(3)/mc L [facility] Red Blood Cell 3.82(L) 4.58 - 5.54 x10(6)/mc L [facility] Hemoglobin 11.8(L) 13.7 - 16.5 gm/dL [facility] Hematocrit 35.6(L) 40.5 - 48.5 % [facility] Mean Cell Volume 93.2(H) 82.9 - 93.1 fL [facility] Mean Cell Hemoglobin 30.9 27.5 - 32.1 pg [facility] Mean Cell Hemoglobin Concentration 33.1 32.0 - 35.7 gm/dL [facility] Platelet 235 145 - 357 x10(3)/mc L [facility] RDW Standard Deviation 44.7 36.0 - 45.0 [facility] RDW coefficient of variation 13.0 11.4 - 13.8 % [facility] Mean Platelet Volume 10.4 7.6 - 12.9 fL [facility] NRBC% auto 0.0 % [facility] NRBC Absolute 0.000 0.000 - 0.000 x10(3)/mc L [facility] Blood specimen (specimen) 11/15/2019 1:36 AM EDT 11/15/2019 2:02 AM EDT Narrative Resulting Agency Comment Spec In Lab Tu Reyes MD HEMATOLOGY ORDERABLE S Performing Organization Address City/[facility]/ZIP Co de Phone Number [facility] [place] [address] * (ABNORMAL) Basic Metabolic Panel (non-fasting) (11/15/2019 1:36 AM EDT) Glucose 113 65 - 199 mg/dL [facility] Comment:Diabetes: >=200 mg/d L plus symptoms Blood Urea Nitrogen 9(L) 10 - 20 mg/dL [facility] Creatinine 0.92 0.80 - 1.50 mg/dL [facility] Sodium 138 135 - 145 mmol/L [facility] Potassium 4.2 3.5 - 5.0 mmol/L [facility] Comment: Please note: ??Patients with WBC >100,000 may have falsely elevated Potassium levels. ??For accurate Potassium quantification in these patients send serum separator tube (gold top) for subsequent determinations. ??Contact the Clinical Chemistry Laboratory if there are any questions. Chloride 105 98 - 107 mmol/L [facility] Carbon Dioxide 26 22 - 31 mmol/L [facility] Anion Gap 7 5 - 15 mmol/L [facility] Calcium 8.6 8.5 - 10.5 mg/dL [facility] Est Glomerular Filtration Rate 82 >=60 mL/min/1. 73 m?? [facility] Comment: The eGFR was calculated using the CKD-EPI equation. As with all creatinine based estimates of kidney function, eGFR values calculated with the CKD-EPI equation are not accurate in patients with acute kidney failure, extremes of body mass or the acutely ill. [email or web address] eGFR 95 >=60 mL/min/1. 73 m?? [facility] Comment: The eGFR was calculated using the CKD-EPI equation. As with all creatinine based estimates of kidney function, eGFR values calculated with the CKD-EPI equation are not accurate in patients with acute kidney failure, extremes of body mass or the acutely ill. [email or web address] Blood specimen (specimen) 11/15/2019 1:36 AM EDT 11/15/2019 2:02 AM EDT Narrative Resulting Agency Comment Spec In Lab Casey Singh MD CHEMISTRY ORDERABLES Performing Organization Address [facility] Co de Phone Number [facility] [place] [address] * Valproic Acid Level, Total (11/15/2019 1:36 AM EDT) Valproic Acid 47 mg/L [facility] Comment: Therapeutic Range: Anticonvulsant Therapy: ??50-100 mg/L Manic Episodes Associated with Bipolar Disorder: ??50-125 mg/L Blood specimen (specimen) 11/15/2019 1:36 AM EDT 11/15/2019 2:02 AM EDT Narrative Resulting Agency Comment Spec In Lab Casey Singh MD CHEMISTRY ORDERABLES Performing Organization Address [facility] Co de Phone Number [facility] [place] [address] * POCT Glucose (11/14/2019 5:06 PM EDT) Glucose, POC 83 65 - 199 mg/dL [facility] Comment: Supplemental ranges: <140 mg/dL before meals <180 mg/dL all other times of the day Blood specimen (specimen) 11/14/2019 5:06 PM EDT 11/14/2019 5:06 PM EDT Casey Singh MD POINT OF CARE TEST O RDERABLES Performing Organization Address [facility] Co de Phone Number [facility] [place] [place] [address] * POCT Glucose (11/14/2019 3:15 PM EDT) Glucose, POC 100 65 - 199 mg/dL [facility] Comment: Supplemental ranges: <140 mg/dL before meals <180 mg/dL all other times of the day Blood specimen (specimen) 11/14/2019 3:15 PM EDT 11/14/2019 3:15 PM EDT Casey Singh MD POINT OF CARE TEST O RDERAPAMELA Performing Organization Address [facility] Co de Phone Number [facility] [place] [address] * POCT Glucose (11/14/2019 1:59 PM EDT) Glucose, POC 90 65 - 199 mg/dL [facility] Comment: Supplemental ranges: <140 mg/dL before meals <180 mg/dL all other times of the day Blood specimen (specimen) 11/14/2019 1:59 PM EDT 11/14/2019 1:59 PM EDT Casey Singh MD POINT OF CARE TEST O LORI Performing Organization Address [facility] Co de Phone Number [facility] [place] [place] [address] * IR Embolization Intracranial (11/14/2019 1:39 PM EDT) Anatomical Region Laterality Modality Head X-Ray Angiograph y Impressions 11/22/2019 4:10 PM EDT 1. 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 ??[place] embolization of dural arteriovenous fistula with approximately [...] please contact the number below. ? Narrative 11/22/2019 4:10 PM EDT EXAMINATION: IR [...] ??815.1 mGy MATERIALS: Micropuncture set, 6 Fr Morris sheath, 5 Fr Impress Vert 125 cm selective catheter, 4 Fr Tempo Vertebral 100 cm selective catheter, 5 Fr Envoy MPC 100 cm guide catheter, 6 Fr Envoy MPC Angled 90 cm guide catheter, 2.7 Fr Oxford 1.5 cm 165 cm microcatheter, 2.7 Fr Oxford 3 cm 165 cm microcatheter, 1.5 Fr [place] 165 cm microcatheter.012 NT Synchro-10 200 cm [...] cerebral angiography was performed each position. An Oxford microcatheter was directed to the left middle [...] directed to the external carotid artery. A [place] microcatheter was directed to the occipital artery [...] of the distal external carotid artery by Gregory cast. The occipital [...] 815.1 mGy MATERIALS: Micropuncture set, 6 Fr Morris sheath, 5 Fr Impress Vert 125cm selective catheter, 4 Fr Tempo Vertebral 100 cm selective catheter, 5 FrEnvoy MPC 100 cm guide catheter, 6 Fr Envoy MPC Angled 90 cm guide catheter, 2.7Fr Oxford 1.5 cm 165 cm microcatheter, 2.7 Fr Oxford 3 cm 165 cmmicrocatheter, 1.5 Fr [place] 165 cm microcatheter.012 NT Synchro-10 200 cm microwire,.010 Asahi Chikai STR tip 200 cm microwire, .008 Hybrid STR 220 cmhydrophilic microwire, .035 J-tip 150 cm guidewire, .035 angle-tipped 150 cmhydrophilic guidewire, 6 Fr Angio-Seal VIP vascular closure device, [place] 34 - 1 vial,Gregory 18 - 1 vial TECHNIQUE: The procedure [...] biplanecerebral angiography was performed each position. An Oxford microcatheter wasdirected to the left middle meningeal artery using the microwire. Hand injectedbiplane microcatheter angiogram was performed. The catheter was placed moredistally in the parietal division of the left middle meningeal artery and handinjected biplane angiogram performed. From this position, [place] was infused using standard protocol withcontinuous fluoroscopic [...] then directed to the externalcarotid artery. A [place] microcatheter was directed to the occipital arteryusing [...] immediate complications. The patient was transferred to [facility] in stable condition. FINDINGS: LEFT COMMON [...] occlusion of the distalexternal carotid artery by [place] cast. The occipital branch of the left [...] of the posterior left convexity, CognardIII 2. [place] embolization of dural arteriovenous fistula with [id number]% obliteration and return of normal flow in [...] this report, please contact the number below. Hussain Christianson MD IMG IR ORDERABLES * (ABNORMAL) BLOOD GAS 2 ARTERIAL (11/14/2019 8:43 AM EDT) pH, Arterial 7.45 7.35 - 7.45 [facility] PCO2, Arterial 35 35 - 45 mmHg [facility] PO2, Arterial 315(H) 85 - 104 mmHg [facility] Bicarbonate, Arterial 23.9 20.0 - 26.0 mmol/L [facility] Base Excess, Arterial -0.3 -3.0 - 3.0 mmol/L [facility] Hgb Blood Gas 14.0 13.7 - 16.5 gm/dL [facility] Oxyhemoglobin, Arterial 98.8(H) 94.0 - 97.0 % [facility] Carboxyhemoglob in, Arterial 0.4 % [facility] Comment: Nonsmokers: 0.5-1.5% COHB Smokers: Variable, but usually less than 10% Toxic: 20-30% COHB Lethal: Greater than 60% COHB Methemoglobin, Arterial 0.3 <=1.5 % [facility] Na Whole Blood 138 135 - 145 mmol/L [facility] K Whole Blood 3.8 3.5 - 5.0 mmol/L [facility] Comment: Please note: Patients with WBC >100,000 may have falsely elevated Potassium levels. Contact the Clinical Chemistry Laboratory if there are any questions. ICa Whole Blood 1.16 1.15 - 1.33 mmol/L [facility] Comment: Note: ??Total bilirubin higher than 20 mg/dL may lead to falsely low ionized calcium. CL Whole Blood 107 98 - 107 mmol/L [facility] Gluc Whole Bld 113 65 - 199 mg/dL [facility] Comment:Diabetes: >=200 mg/d L plus symptoms. Lactate WB 1.2 0.5 - 2.2 mmol/L [facility] FIO2 Art 60 % [facility] PF Ratio Art 525 [facility] Temp Art 36.3 Celsius [facility] Blood specimen (specimen) 11/14/2019 8:43 AM EDT 11/14/2019 8:43 AM EDT Casey Singh MD POINT OF CARE TEST O RDERABLES [facility] [place] [place] [address] * Differential, Automated (11/14/2019 2:05 AM EDT) Neutrophil % 48.4 % [facility] Neutrophil Absolute 2.80 1.70 - 6.10 x10(3)/[facility] Lymph % 34.5 % [facility] Lymphocytes Abs 2.0 0.9 - 3.2 x10(3)/[facility] Monocyte % 11.1 % [facility] Monocyte Abs 0.6 0.3 - 0.9 x10(3)/[facility] Eos % 4.8 % [facility] Eosinophils Abs 0.3 0.0 - 0.4 x10(3)/[facility] Basophil % 1.0 % [facility] Baso Absolute 0.1 0.0 - 0.1 x10(3)/[facility] Immature Gran % 0.20 % [facility] Comment: Immature granulocytes(IG's)percentage and absolute count will include metamyelocytes, myelocytes, and promyelocytes. Blood smears from CBCs yielding IG's will be scanned manually for concordance. If this scan disagrees with the automated IG or if promyelocytes are noted, a manual differential will be performed. Immature Gran Absolute 0.01 0.00 - 0.04 x10(3)/mcL [facility] Blood specimen (specimen) 11/14/2019 2:05 AM EDT 11/14/2019 2:11 AM EDT Narrative Resulting Agency Comment Spec In Lab Tu Reyes MD HEMATOLOGY ORDERABLE S [facility] [place] [address] * (ABNORMAL) Hemogram (11/14/2019 2:05 AM EDT) White Blood Cell 5.8 4.0 - 9.5 x10(3)/mc L [facility] Red Blood Cell 4.21(L) 4.58 - 5.54 x10(6)/mc L [facility] Hemoglobin 12.9(L) 13.7 - 16.5 gm/dL [facility] Hematocrit 38.5(L) 40.5 - 48.5 % [facility] Mean Cell Volume 91.4 82.9 - 93.1 fL [facility] Mean Cell Hemoglobin 30.6 27.5 - 32.1 pg [facility] Mean Cell Hemoglobin Concentration 33.5 32.0 - 35.7 gm/dL [facility] Platelet 261 145 - 357 x10(3)/mc L [facility] RDW Standard Deviation 41.9 36.0 - 45.0 fL [facility] RDW coefficient of variation 12.6 11.4 - 13.8 % [facility] Mean Platelet Volume 10.0 7.6 - 12.9 fL [facility] NRBC% auto 0.0 % [facility] NRBC Absolute 0.000 0.000 - 0.000 x10(3)/mc L [facility] Blood specimen (specimen) 11/14/2019 2:05 AM EDT 11/14/2019 2:11 AM EDT Narrative Resulting Agency Comment Spec In Lab Tu Reyes MD HEMATOLOGY ORDERABLE S [facility] [place] [place] [address] * Basic Metabolic Panel (non-fasting) (11/14/2019 2:05 AM EDT) Glucose 105 65 - 199 mg/dL [facility] Comment:Diabetes: >=200 mg/d L plus symptoms Blood Urea Nitrogen 14 10 - 20 mg/dL [facility] Creatinine 1.03 0.80 - 1.50 mg/dL [facility] Sodium 140 135 - 145 mmol/L [facility] Potassium 4.2 3.5 - 5.0 mmol/L [facility] Comment: Please note: ??Patients with WBC >100,000 may have falsely elevated Potassium levels. ??For accurate Potassium quantification in these patients send serum separator tube (gold top) for subsequent determinations. ??Contact the Clinical Chemistry Laboratory if there are any questions. Chloride 103 98 - 107 mmol/L [facility] Carbon Dioxide 25 22 - 31 mmol/L [facility] Anion Gap 12 5 - 15 mmol/L [facility] Calcium 9.2 8.5 - 10.5 mg/dL [facility] Est Glomerular Filtration Rate 72 >=60 mL/min/1. 73 m?? [facility] Comment: The eGFR was calculated using the CKD-EPI equation. As with all creatinine based estimates of kidney function, eGFR values calculated with the CKD-EPI equation are not accurate in patients with acute kidney failure, extremes of body mass or the acutely ill. [email or web address] eGFR 83 >=60 mL/min/1. 73 m?? [facility] Comment: The eGFR was calculated using the CKD-EPI equation. As with all creatinine based estimates of kidney function, eGFR values calculated with the CKD-EPI equation are not accurate in patients with acute kidney failure, extremes of body mass or the acutely ill. [email or web address] Blood specimen (specimen) 11/14/2019 2:05 AM EDT 11/14/2019 2:11 AM EDT Narrative Resulting Agency Comment Spec In Lab Casey Singh MD CHEMISTRY ORDERABLES Performing Organization Address [facility] Co de Phone Number [facility] [place] [place] [address] * Valproic Acid Level, Total (11/14/2019 2:05 AM EDT) Valproic Acid 79 mg/L [facility] Comment: Therapeutic Range: Anticonvulsant Therapy: ??50-100 mg/L Manic Episodes Associated with Bipolar Disorder: ??50-125 mg/L Blood specimen (specimen) 11/14/2019 2:05 AM EDT 11/14/2019 2:11 AM EDT Narrative Resulting Agency Comment Spec In Lab Casey Singh MD CHEMISTRY ORDERABLES Performing Organization Address [facility] Co de Phone Number [facility] [place] [address] * POCT Glucose (11/13/2019 8:56 PM EDT) Glucose, POC 133 65 - 199 mg/dL [facility] Comment: Supplemental ranges: <140 mg/dL before meals <180 mg/dL all other times of the day Blood specimen (specimen) 11/13/2019 8:56 PM EDT 11/13/2019 8:56 PM EDT Casey Singh MD POINT OF CARE TEST O RDERABLES Performing Organization Address [facility]/ZIP Co de Phone Number [facility] [place] [address] * POCT Glucose (11/13/2019 5:07 PM EDT) Glucose, POC 111 65 - 199 mg/dL [facility] Comment: Supplemental ranges: <140 mg/dL before meals <180 mg/dL all other times of the day Blood specimen (specimen) 11/13/2019 5:07 PM EDT 11/13/2019 5:07 PM EDT Casey Singh MD POINT OF CARE TEST O RDERABLES Performing Organization Address [facility] Co de Phone Number [facility] [place] [address] * POCT Glucose (11/13/2019 11:56 AM EDT) Glucose, POC 127 65 - 199 mg/dL [facility] Comment: Supplemental ranges: <140 mg/dL before meals <180 mg/dL all other times of the day Blood specimen (specimen) 11/13/2019 11:56 AM EDT 11/13/2019 11:56 AM EDT Casey Singh MD POINT OF CARE TEST O RDERAPAMELA Performing Organization Address [facility] Co de Phone Number [facility] [place] [address] * POCT Glucose (11/13/2019 7:48 AM EDT) Glucose, POC 101 65 - 199 mg/dL [facility] Comment: Supplemental ranges: <140 mg/dL before meals <180 mg/dL all other times of the day Blood specimen (specimen) 11/13/2019 7:48 AM EDT 11/13/2019 7:48 AM EDT Casey Singh MD POINT OF CARE TEST O RDERABLES [facility] [place] [address] * Differential, Automated (11/13/2019 2:03 AM EDT) Pathologist [facility] Neutrophil % 49.7 % [facility] Neutrophil Absolute 3.15 1.70 - 6.10 x10(3)/[facility] Lymph % 33.8 % [facility] Lymphocytes Abs 2.1 0.9 - 3.2 x10(3)/[facility] Monocyte % 9.5 % [facility] Monocyte Abs 0.6 0.3 - 0.9 x10(3)/[facility] Eos % 5.8 % [facility] Eosinophils Abs 0.4 0.0 - 0.4 x10(3)/[facility] Basophil % 0.9 % [facility] Baso Absolute 0.1 0.0 - 0.1 x10(3)/[facility] Immature Gran % 0.30 % [facility] Comment: Immature granulocytes(IG's)percentage and absolute count will include metamyelocytes, myelocytes, and promyelocytes. Blood smears from CBCs yielding IG's will be scanned manually for concordance. If this scan disagrees with the automated IG or if promyelocytes are noted, a manual differential will be performed. Immature Gran Absolute 0.02 0.00 - 0.04 x10(3)/[facility] Blood specimen (specimen) 11/13/2019 2:03 AM EDT 11/13/2019 2:15 AM EDT Narrative Resulting Agency Comment Spec In Lab Tu Reyes MD HEMATOLOGY ORDERABLE S [facility] [place] [place] [address] * (ABNORMAL) Hemogram (11/13/2019 2:03 AM EDT) [facility] White Blood Cell 6.3 4.0 - 9.5 x10(3)/ L [facility] Red Blood Cell 4.26(L) 4.58 - 5.54 x10(6)/ L [facility] Hemoglobin 12.9(L) 13.7 - 16.5 gm/dL [facility] Hematocrit 39.1(L) 40.5 - 48.5 % [facility] Mean Cell Volume 91.8 82.9 - 93.1 fL [facility] Mean Cell Hemoglobin 30.3 27.5 - 32.1 pg [facility] Mean Cell Hemoglobin Concentration 33.0 32.0 - 35.7 gm/dL [facility] Platelet 250 145 - 357 x10(3)/[facility] RDW Standard Deviation 43.2 36.0 - 45.0 [facility] RDW coefficient of variation 12.8 11.4 - 13.8 % [facility] Mean Platelet Volume 10.2 7.6 - 12.9 [facility] NRBC% auto 0.0 % [facility] NRBC Absolute 0.000 0.000 - 0.000 x10(3)/[facility] Blood specimen (specimen) 11/13/2019 2:03 AM EDT 11/13/2019 2:15 AM EDT Narrative Resulting Agency Comment Spec In Lab Tu Reyes MD HEMATOLOGY ORDERABLE S [facility] [place] [place] [address] * Basic Metabolic Panel (non-fasting) (11/13/2019 2:03 AM EDT) Glucose 104 65 - 199 mg/dL [facility] Comment:Diabetes: >=200 mg/d L plus symptoms Blood Urea Nitrogen 15 10 - 20 mg/dL [facility] Creatinine 0.90 0.80 - 1.50 mg/dL [facility] Sodium 137 135 - 145 mmol/L [facility] Potassium 4.1 3.5 - 5.0 mmol/L [facility] Comment: Please note: ??Patients with WBC >100,000 may have falsely elevated Potassium levels. ??For accurate Potassium quantification in these patients send serum separator tube (gold top) for subsequent determinations. ??Contact the Clinical Chemistry Laboratory if there are any questions. Chloride 103 98 - 107 mmol/L [facility] Carbon Dioxide 24 22 - 31 mmol/L [facility] Anion Gap 10 5 - 15 mmol/L [facility] Calcium 9.1 8.5 - 10.5 mg/dL [facility] Est Glomerular Filtration Rate 84 >=60 mL/min/1. 73 m?? [facility] Comment: The eGFR was calculated using the CKD-EPI equation. As with all creatinine based estimates of kidney function, eGFR values calculated with the CKD-EPI equation are not accurate in patients with acute kidney failure, extremes of body mass or the acutely ill. [email or web address] eGFR 98 >=60 mL/min/1. 73 m?? [facility] Comment: The eGFR was calculated using the CKD-EPI equation. As with all creatinine based estimates of kidney function, eGFR values calculated with the CKD-EPI equation are not accurate in patients with acute kidney failure, extremes of body mass or the acutely ill. [email or web address] Blood specimen (specimen) 11/13/2019 2:03 AM EDT 11/13/2019 2:15 AM EDT Narrative Resulting Agency Comment Spec In Lab Casey Singh MD CHEMISTRY ORDERABLES [facility] [place] [address] * Valproic Acid Level, Total (11/13/2019 2:03 AM EDT) Valproic Acid 55 mg/L [facility] Comment: Therapeutic Range: Anticonvulsant Therapy: ??50-100 mg/L Manic Episodes Associated with Bipolar Disorder: ??50-125 mg/L Blood specimen (specimen) 11/13/2019 2:03 AM EDT 11/13/2019 2:15 AM EDT Narrative Resulting Agency Comment Spec In Lab Casey Singh MD CHEMISTRY ORDERABLES Performing Organization Address [facility] Co de Phone Number [facility] [place] [address] * POCT Glucose (11/12/2019 8:32 PM EDT) Glucose, POC 121 65 - 199 mg/dL [facility] Comment: Supplemental ranges: <140 mg/dL before meals <180 mg/dL all other times of the day Blood specimen (specimen) 11/12/2019 8:32 PM EDT 11/12/2019 8:32 PM EDT Casey Singh MD POINT OF CARE TEST O RDERABLES Performing Organization Address [facility] Co de Phone Number [facility] [place] [address] * POCT Glucose (11/12/2019 6:14 PM EDT) Glucose, POC 131 65 - 199 mg/dL [facility] Comment: Supplemental ranges: <140 mg/dL before meals <180 mg/dL all other times of the day Blood specimen (specimen) 11/12/2019 6:14 PM EDT 11/12/2019 6:14 PM EDT Casey Singh MD POINT OF CARE TEST O RDERAPAMELA Performing Organization Address [facility] Co de Phone Number [facility] [place] [place] [address] * POCT Glucose (11/12/2019 12:02 PM EDT) Glucose, POC 130 65 - 199 mg/dL [facility] Comment: Supplemental ranges: <140 mg/dL before meals <180 mg/dL all other times of the day Blood specimen (specimen) 11/12/2019 12:02 PM EDT 11/12/2019 12:02 PM EDT Casey Singh MD POINT OF CARE TEST O LORI Performing Organization Address City/[facility]/ZIP Co de Phone Number [facility] [place] [address] * POCT Glucose (11/12/2019 7:29 AM EDT) Glucose, POC 123 65 - 199 mg/dL [facility] Comment: Supplemental ranges: <140 mg/dL before meals <180 mg/dL all other times of the day Blood specimen (specimen) 11/12/2019 7:29 AM EDT 11/12/2019 7:29 AM EDT Casey Singh MD POINT OF CARE TEST Sandi SANDOVAL Performing Organization Address [facility]/ZIP Co de Phone Number [facility] [place] [address] * (ABNORMAL) Urinalysis with reflex Culture (11/12/2019 2:11 AM EDT) Glucose, Urine Dipstick Negative Negative mg/dL [facility] Protein, Urine Dipstick Negative Negative mg/dL [facility] Bilirubin, Urine Dipstick Negative Negative mg/dL [facility] Comment: Clinical correlation required for positive Urine Bilirubin results as false positive may occur with some drugs and drug related products. If a false positive is suspected a serum total bilirubin should be considered if clinically indicated. Urobilinogen, Urine Dipstick Normal Normal mg/dL [facility] pH, Urn (dipstick) 6.5 5.0 - 8.0 [facility] Blood, Urine Dipstick Negative Negative mg/dL [facility] Ketone, Urine Dipstick Trace(A) Negative mg/dL [facility] Nitrite, Urine Dipstick Negative Negative [facility] Leukocytes, Urine Dipstick Negative Negative [facility] Appearance, Urine Dipstick Clear Clear [facility] Specific [place] Urine Automated 1.019 1.006 - 1.030 [facility] Color, Urine Dipstick Yellow Yellow [facility] Reflex to Culture No [facility] Urine specimen (specimen) 11/12/2019 2:11 AM EDT 11/12/2019 2:27 AM EDT Narrative Resulting Agency Comment Spec In Lab Casey Singh MD URINE ORDERABLES [facility] [place] [place] [address] * Differential, Automated (11/12/2019 1:33 AM EDT) Neutrophil % 56.2 % [facility] Neutrophil Absolute 3.59 1.70 - 6.10 x10(3)/[facility] Lymph % 29.4 % [facility] Lymphocytes Abs 1.9 0.9 - 3.2 x10(3)/[facility] Monocyte % 10.5 % [facility] Monocyte Abs 0.7 0.3 - 0.9 x10(3)/[facility] Eos % 2.7 % [facility] Eosinophils Abs 0.2 0.0 - 0.4 x10(3)/[facility] Basophil % 0.9 % [facility] Baso Absolute 0.1 0.0 - 0.1 x10(3)/[facility] Immature Gran % 0.30 % [facility] Comment: Immature granulocytes(IG's)percentage and absolute count will include metamyelocytes, myelocytes, and promyelocytes. Blood smears from CBCs yielding IG's will be scanned manually for concordance. If this scan disagrees with the automated IG or if promyelocytes are noted, a manual differential will be performed. Immature Gran Absolute 0.02 0.00 - 0.04 x10(3)/mcL [facility] Blood specimen (specimen) 11/12/2019 1:33 AM EDT 11/12/2019 1:49 AM EDT Narrative Resulting Agency Comment Spec In Lab Tu Reyes MD HEMATOLOGY ORDERABLE S [facility] [place] [place] [address] * (ABNORMAL) Hemogram (11/12/2019 1:33 AM EDT) White Blood Cell 6.4 4.0 - 9.5 x10(3)/[facility] Red Blood Cell 4.19(L) 4.58 - 5.54 x10(6)/[facility] Hemoglobin 12.9(L) 13.7 - 16.5 gm/dL [facility] Hematocrit 39.3(L) 40.5 - 48.5 % [facility] Mean Cell Volume 93.8(H) 82.9 - 93.1 [facility] Mean Cell Hemoglobin 30.8 27.5 - 32.1 pg [facility] Mean Cell Hemoglobin Concentration 32.8 32.0 - 35.7 gm/dL [facility] Platelet 219 145 - 357 x10(3)/[facility] RDW Standard Deviation 44.3 36.0 - 45.0 [facility] RDW coefficient of variation 13.0 11.4 - 13.8 % [facility] Mean Platelet Volume 9.9 7.6 - 12.9 [facility] NRBC% auto 0.0 % [facility] NRBC Absolute 0.000 0.000 - 0.000 x10(3)/[facility] Blood specimen (specimen) 11/12/2019 1:33 AM EDT 11/12/2019 1:49 AM EDT Narrative Resulting Agency Comment Spec In Lab Tu Reyes MD HEMATOLOGY ORDERABLE S [facility] [place] [place] [address] * Basic Metabolic Panel (non-fasting) (11/12/2019 1:33 AM EDT) Glucose 134 65 - 199 mg/dL [facility] Comment:Diabetes: >=200 mg/d L plus symptoms Blood Urea Nitrogen 11 10 - 20 mg/dL [facility] Creatinine 0.98 0.80 - 1.50 mg/dL [facility] Sodium 139 135 - 145 mmol/L [facility] Potassium 4.1 3.5 - 5.0 mmol/L [facility] Comment: Please note: ??Patients with WBC >100,000 may have falsely elevated Potassium levels. ??For accurate Potassium quantification in these patients send serum separator tube (gold top) for subsequent determinations. ??Contact the Clinical Chemistry Laboratory if there are any questions. Chloride 102 98 - 107 mmol/L [facility] Carbon Dioxide 25 22 - 31 mmol/L [facility] Anion Gap 12 5 - 15 mmol/L [facility] Calcium 9.2 8.5 - 10.5 mg/dL [facility] Est Glomerular Filtration Rate 76 >=60 mL/min/1. 74 m?? [facility] Comment: The eGFR was calculated using the CKD-EPI equation. As with all creatinine based estimates of kidney function, eGFR values calculated with the CKD-EPI equation are not accurate in patients with acute kidney failure, extremes of body mass or the acutely ill. [email or web address] eGFR 88 >=60 mL/min/1. 73 m?? [facility] Comment: The eGFR was calculated using the CKD-EPI equation. As with all creatinine based estimates of kidney function, eGFR values calculated with the CKD-EPI equation are not accurate in patients with acute kidney failure, extremes of body mass or the acutely ill. [email or web address] Blood specimen (specimen) 11/12/2019 1:33 AM EDT 11/12/2019 1:49 AM EDT Narrative Resulting Agency Comment Spec In Lab Casey Singh MD CHEMISTRY ORDERABLES Performing Organization Address City/[facility] Co de Phone Number [facility] [place] [address] * Valproic Acid Level, Total (11/12/2019 1:33 AM EDT) Valproic Acid 22 mg/L [facility] Comment: Therapeutic Range: Anticonvulsant Therapy: ??50-100 mg/L Manic Episodes Associated with Bipolar Disorder: ??50-125 mg/L Blood specimen (specimen) 11/12/2019 1:33 AM EDT 11/12/2019 1:49 AM EDT Narrative Resulting Agency Comment Spec In Lab Casey Singh MD CHEMISTRY ORDERABLES Performing Organization Address [facility] Co de Phone Number [facility] [place] [address] * Hepatic Function Panel (11/12/2019 1:33 AM EDT) Protein, Total 6.3 6.1 - 8.0 gm/dL [facility] Albumin 3.6 3.2 - 5.2 gm/dL [facility] Aspartate Aminotransferase 21 0 - 39 unit/L [facility] Alanine Aminotransferase 18 0 - 55 unit/L [facility] Alkaline Phosphatase 48 40 - 130 unit/L [facility] Bilirubin, Total 0.5 0.2 - 1.3 mg/dL [facility] Bilirubin, Direct 0.1 0.0 - 0.3 mg/dL [facility] Blood specimen (specimen) 11/12/2019 1:33 AM EDT 11/12/2019 1:49 AM EDT Narrative Resulting Agency Comment Spec In Lab Casey Singh MD CHEMISTRY ORDERABLES Performing Organization Address [facility]/ZIP Co de Phone Number [facility] [place] [address] * (ABNORMAL) Ammonia (11/12/2019 1:33 AM EDT) Ammonia 12(L) 16 - 60 mcmol/L [facility] Blood specimen (specimen) 11/12/2019 1:33 AM EDT 11/12/2019 1:45 AM EDT Narrative Resulting Agency Comment Spec In Lab Casey Singh MD CHEMISTRY ORDERABLES Performing Organization Address [facility] de Phone Number [facility] [place] [address] * CT Head wo Contrast (Generic) (11/11/2019 [...] Glucose, POC 93 65 - 199 mg/dL [facility] Comment: Supplemental ranges: <140 mg/dL before meals <180 mg/dL all other times of the day Blood specimen (specimen) 11/11/2019 5:06 PM EDT 11/11/2019 5:06 PM EDT Casey Singh MD POINT OF CARE TEST O RDERABLES [facility] [place] [place] [address] * POCT Glucose (11/11/2019 11:44 AM EDT) Glucose, POC 178 65 - 199 mg/dL [facility] Comment: Supplemental ranges: <140 mg/dL before meals <180 mg/dL all other times of the day Blood specimen (specimen) 11/11/2019 11:44 AM EDT 11/11/2019 11:44 AM EDT Casey Singh MD POINT OF CARE TEST O LORI Performing Organization Address [facility] Co de Phone Number [facility] [place] [address] * POCT Glucose (11/11/2019 8:49 AM EDT) Pathologist [facility] Glucose, POC 139 65 - 199 mg/dL [facility] Comment: Supplemental ranges: <140 mg/dL before meals <180 mg/dL all other times of the day Blood specimen (specimen) 11/11/2019 8:49 AM EDT 11/11/2019 8:49 AM EDT Casey Singh MD POINT OF CARE TEST O LORI Performing Organization Address [facility]/ZIP Co de Phone Number [facility] [place] [address] * Differential, Automated (11/11/2019 2:07 AM EDT) [facility] Neutrophil % 63.6 % [facility] Neutrophil Absolute 4.64 1.70 - 6.10 x10(3)/[facility] Lymph % 21.8 % [facility] Lymphocytes Abs 1.6 0.9 - 3.2 x10(3)/[facility] Monocyte % 9.6 % [facility] Monocyte Abs 0.7 0.3 - 0.9 x10(3)/[facility] Eos % 3.6 % [facility] Eosinophils Abs 0.3 0.0 - 0.4 x10(3)/[facility] Basophil % 1.1 % [facility] Baso Absolute 0.1 0.0 - 0.1 x10(3)/[facility] Immature Gran % 0.30 % [facility] Comment: Immature granulocytes(IG's)percentage and absolute count will include metamyelocytes, myelocytes, and promyelocytes. Blood smears from CBCs yielding IG's will be scanned manually for concordance. If this scan disagrees with the automated IG or if promyelocytes are noted, a manual differential will be performed. Immature Gran Absolute 0.02 0.00 - 0.04 x10(3)/mcL [facility] Blood specimen (specimen) 11/11/2019 2:07 AM EDT 11/11/2019 2:16 AM EDT Narrative Resulting Agency Comment Spec In Lab Tu Reyes MD HEMATOLOGY ORDERABLE S [facility] [place] [address] * (ABNORMAL) Hemogram (11/11/2019 2:07 AM EDT) White Blood Cell 7.3 4.0 - 9.5 x10(3)/mc L [facility] Red Blood Cell 4.25(L) 4.58 - 5.54 x10(6)/mc L [facility] Hemoglobin 13.0(L) 13.7 - 16.5 gm/dL [facility] Hematocrit 40.3(L) 40.5 - 48.5 % [facility] Mean Cell Volume 94.8(H) 82.9 - 93.1 fL [facility] Mean Cell Hemoglobin 30.6 27.5 - 32.1 pg [facility] Mean Cell Hemoglobin Concentration 32.3 32.0 - 35.7 gm/dL [facility] Platelet 228 145 - 357 x10(3)/mc L [facility] RDW Standard Deviation 44.6 36.0 - 45.0 [facility] RDW coefficient of variation 13.0 11.4 - 13.8 % [facility] Mean Platelet Volume 10.1 7.6 - 12.9 [facility] NRBC% auto 0.0 % [facility] NRBC Absolute 0.000 0.000 - 0.000 x10(3)/mc L [facility] Blood specimen (specimen) 11/11/2019 2:07 AM EDT 11/11/2019 2:16 AM EDT Narrative Resulting Agency Comment Spec In Lab Tu Reyes MD HEMATOLOGY ORDERABLE S [facility] [place] [place] [address] * Basic Metabolic Panel (non-fasting) (11/11/2019 2:07 AM EDT) Glucose 150 65 - 199 mg/dL [facility] Comment:Diabetes: >=200 mg/d L plus symptoms Blood Urea Nitrogen 12 10 - 20 mg/dL [facility] Creatinine 1.17 0.80 - 1.50 mg/dL [facility] Sodium 141 135 - 145 mmol/L [facility] Potassium 4.6 3.5 - 5.0 mmol/L [facility] Comment: Please note: ??Patients with WBC >100,000 may have falsely elevated Potassium levels. ??For accurate Potassium quantification in these patients send serum separator tube (gold top) for subsequent determinations. ??Contact the Clinical Chemistry Laboratory if there are any questions. Chloride 102 98 - 107 mmol/L [facility] Carbon Dioxide 29 22 - 31 mmol/L [facility] Anion Gap 10 5 - 15 mmol/L [facility] Calcium 8.9 8.5 - 10.5 mg/dL [facility] Est Glomerular Filtration Rate 61 >=60 mL/min/1. 73 m?? [facility] Comment: The eGFR was calculated using the CKD-EPI equation. As with all creatinine based estimates of kidney function, eGFR values calculated with the CKD-EPI equation are not accurate in patients with acute kidney failure, extremes of body mass or the acutely ill. [email or web address] eGFR 71 >=60 mL/min/1. 73 m?? [facility] Comment: The eGFR was calculated using the CKD-EPI equation. As with all creatinine based estimates of kidney function, eGFR values calculated with the CKD-EPI equation are not accurate in patients with acute kidney failure, extremes of body mass or the acutely ill. [email or web address] Blood specimen (specimen) 11/11/2019 2:07 AM EDT 11/11/2019 2:16 AM EDT Narrative Resulting Agency Comment Spec In Lab Casey Singh MD CHEMISTRY ORDERABLES Performing Organization Address [facility] de Phone Number [facility] [place] [address] * POCT Glucose (11/10/2019 10:12 PM EDT) Glucose, POC 161 65 - 199 mg/dL [facility] Comment: Supplemental ranges: <140 mg/dL before meals <180 mg/dL all other times of the day Blood specimen (specimen) 11/10/2019 10:12 PM EDT 11/10/2019 10:12 PM EDT Casey Singh MD POINT OF CARE TEST O RDERABLES Performing Organization Address [facility] Co de Phone Number [facility] [place] [address] * POCT Glucose (11/10/2019 5:04 PM EDT) Glucose, POC 100 65 - 199 mg/dL [facility] Comment: Supplemental ranges: <140 mg/dL before meals <180 mg/dL all other times of the day Blood specimen (specimen) 11/10/2019 5:04 PM EDT 11/10/2019 5:04 PM EDT Casey Singh MD POINT OF CARE TEST O RDERAPAMELA Performing Organization Address [facility] Co de Phone Number [facility] [place] [address] * POCT Glucose (11/10/2019 2:31 PM EDT) Glucose, POC 93 65 - 199 mg/dL [facility] Comment: Supplemental ranges: <140 mg/dL before meals <180 mg/dL all other times of the day Blood specimen (specimen) 11/10/2019 2:31 PM EDT 11/10/2019 2:31 PM EDT Casey Singh MD POINT OF CARE TEST O RDERABLES [facility] [place] [address] * POCT Glucose (11/10/2019 11:30 AM EDT) Glucose, POC 93 65 - 199 mg/dL [facility] Comment: Supplemental ranges: <140 mg/dL before meals <180 mg/dL all other times of the day Blood specimen (specimen) 11/10/2019 11:30 AM EDT 11/10/2019 11:30 AM EDT Casey Singh MD POINT OF CARE TEST O RDERAPAMELA [facility] [place] [address] * POCT Glucose (11/10/2019 10:59 AM EDT) Glucose, POC 105 65 - 199 mg/dL [facility] Comment: Supplemental ranges: <140 mg/dL before meals <180 mg/dL all other times of the day Blood specimen (specimen) 11/10/2019 10:59 AM EDT 11/10/2019 10:59 AM EDT Casey Singh MD POINT OF CARE TEST O RDERAPAMELA [facility] [place] [address] * POCT Glucose (11/10/2019 8:12 AM EDT) Pathologist [facility] Glucose, POC 139 65 - 199 mg/dL [facility] Comment: Supplemental ranges: <140 mg/dL before meals <180 mg/dL all other times of the day Blood specimen (specimen) 11/10/2019 8:12 AM EDT 11/10/2019 8:12 AM EDT Casey Singh MD POINT OF CARE TEST O RDERABLES [facility] [place] [address] * Differential, Automated (11/10/2019 1:27 AM EDT) [facility] Neutrophil % 54.6 % [facility] Neutrophil Absolute 3.07 1.70 - 6.10 x10(3)/[facility] Lymph % 28.6 % [facility] Lymphocytes Abs 1.6 0.9 - 3.2 x10(3)/[facility] Monocyte % 10.0 % [facility] Monocyte Abs 0.6 0.3 - 0.9 x10(3)/[facility] Eos % 5.0 % [facility] Eosinophils Abs 0.3 0.0 - 0.4 x10(3)/[facility] Basophil % 1.6 % [facility] Baso Absolute 0.1 0.0 - 0.1 x10(3)/[facility] Immature Gran % 0.20 % [facility] Comment: Immature granulocytes(IG's)percentage and absolute count will include metamyelocytes, myelocytes, and promyelocytes. Blood smears from CBCs yielding IG's will be scanned manually for concordance. If this scan disagrees with the automated IG or if promyelocytes are noted, a manual differential will be performed. Immature Gran Absolute 0.01 0.00 - 0.04 x10(3)/[facility] Blood specimen (specimen) 11/10/2019 1:27 AM EDT 11/10/2019 1:41 AM EDT Narrative Resulting Agency Comment Spec In Lab Maty Mcfadden CLINICAL BUSINESS MANAGER HEMATOLOGY ORDERABLE S [facility] [place] [address] * (ABNORMAL) Hemogram (11/10/2019 1:27 AM EDT) White Blood Cell 5.6 4.0 - 9.5 x10(3)/[facility] Red Blood Cell 4.51(L) 4.58 - 5.54 x10(6)/[facility] Hemoglobin 13.6(L) 13.7 - 16.5 gm/dL [facility] Hematocrit 41.6 40.5 - 48.5 % [facility] Mean Cell Volume 92.2 82.9 - 93.1 [facility] Mean Cell Hemoglobin 30.2 27.5 - 32.1 pg [facility] Mean Cell Hemoglobin Concentration 32.7 32.0 - 35.7 gm/dL [facility] Platelet 232 145 - 357 x10(3)/[facility] RDW Standard Deviation 43.6 36.0 - 45.0 [facility] RDW coefficient of variation 12.8 11.4 - 13.8 % [facility] Mean Platelet Volume 10.2 7.6 - 12.9 [facility] NRBC% auto 0.0 % [facility] NRBC Absolute 0.000 0.000 - 0.000 x10(3)/[facility] Blood specimen (specimen) 11/10/2019 1:27 AM EDT 11/10/2019 1:41 AM EDT Narrative Resulting Agency Comment Spec In Lab Maty Mcfadden CLINICAL BUSINESS MANAGER HEMATOLOGY ORDERABLE S [facility] [place] [place] [address] * Basic Metabolic Panel (non-fasting) (11/10/2019 1:27 AM EDT) Glucose 121 65 - 199 mg/dL [facility] Comment:Diabetes: >=200 mg/d L plus symptoms Blood Urea Nitrogen 13 10 - 20 mg/dL [facility] Creatinine 0.97 0.80 - 1.50 mg/dL [facility] Sodium 140 135 - 145 mmol/L [facility] Potassium 3.9 3.5 - 5.0 mmol/L [facility] Comment: Please note: ??Patients with WBC >100,000 may have falsely elevated Potassium levels. ??For accurate Potassium quantification in these patients send serum separator tube (gold top) for subsequent determinations. ??Contact the Clinical Chemistry Laboratory if there are any questions. Chloride 103 98 - 107 mmol/L [facility] Carbon Dioxide 27 22 - 31 mmol/L [facility] Anion Gap 10 5 - 15 mmol/L [facility] Calcium 9.2 8.5 - 10.5 mg/dL [facility] Est Glomerular Filtration Rate 77 >=60 mL/min/1. 73 m?? [facility] Comment: The eGFR was calculated using the CKD-EPI equation. As with all creatinine based estimates of kidney function, eGFR values calculated with the CKD-EPI equation are not accurate in patients with acute kidney failure, extremes of body mass or the acutely ill. [email or web address] eGFR 89 >=60 mL/min/1. 73 m?? [facility] Comment: The eGFR was calculated using the CKD-EPI equation. As with all creatinine based estimates of kidney function, eGFR values calculated with the CKD-EPI equation are not accurate in patients with acute kidney failure, extremes of body mass or the acutely ill. [email or web address] Blood specimen (specimen) 11/10/2019 1:27 AM EDT 11/10/2019 1:41 AM EDT Narrative Resulting Agency Comment Spec In Lab Casey Singh MD CHEMISTRY ORDERABLES Performing Organization Address City/[facility]/ZIP Co de Phone Number [facility] [place] [address] * POCT Glucose (11/09/2019 10:18 PM EDT) Glucose, POC 161 65 - 199 mg/dL [facility] Comment: Supplemental ranges: <140 mg/dL before meals <180 mg/dL all other times of the day Blood specimen (specimen) 11/09/2019 10:18 PM EDT 11/09/2019 10:18 PM EDT Casey Singh MD POINT OF CARE TEST O RDERABLES Performing Organization Address [facility]/ZIP Co de Phone Number [facility] [place] [address] * POCT Glucose (11/09/2019 4:17 PM EDT) Glucose, POC 77 65 - 199 mg/dL [facility] Comment: Supplemental ranges: <140 mg/dL before meals <180 mg/dL all other times of the day Blood specimen (specimen) 11/09/2019 4:17 PM EDT 11/09/2019 4:17 PM EDT Casey Singh MD POINT OF CARE TEST O LORI Performing Organization Address City/[facility]/ZIP Co de Phone Number [facility] [place] [address] * ABORH Recheck Status (11/09/2019 12:21 PM EDT) ABORH Type Recheck Completed [facility] Blood specimen (specimen) 11/09/2019 12:21 PM EDT 11/09/2019 12:49 PM EDT Narrative Resulting Agency Comment Spec In Lab Charlene Louis MD BLOOD BANK LAB ORDER EMILIANO Performing Organization Address City/[facility]/ZIP Co de Phone Number [facility] [place] [address] * Antibody screen (11/09/2019 12:21 PM EDT) Ab Screen Interp Negative [facility] Expires at [id number] on: 11/12/2019 [facility] Blood specimen (specimen) 11/09/2019 12:21 PM EDT 11/09/2019 12:49 PM EDT Narrative Resulting Agency Comment Spec In Lab Charlene Louis MD BLOOD BANK LAB ORDER EMILIANO Performing Organization Address City/[facility] Co de Phone Number [facility] [place] [address] * ABO/Rh Typing (11/09/2019 12:21 PM EDT) ABORH Type B Pos [facility] Blood specimen (specimen) 11/09/2019 12:21 PM EDT 11/09/2019 12:49 PM EDT Narrative Resulting Agency Comment Spec In Lab Charlene Louis MD BLOOD BANK LAB ORDER EMILIANO Performing Organization Address City/[facility] Co de Phone Number [facility] [place] [address] * APTT (11/09/2019 12:21 PM EDT) Partial Thromboplastin Time 30 25 - 37 sec [facility] Comment: The PTT is NOT appropriate for heparin monitoring. Use the Anti-Xa level for heparin monitoring (HEP UFH) or LMWH monitoring (HEP LMW). A PTT less than 37 seconds generally indicates adequate hemostasis. Blood specimen (specimen) 11/09/2019 12:21 PM EDT 11/09/2019 12:21 PM EDT Narrative Resulting Agency Comment Spec In Lab Casey Singh MD HEMATOLOGY ORDERABLE S Performing Organization Address City/[facility]/ZIP Co de Phone Number [facility] [place] [address] * Prothrombin Time (11/09/2019 12:21 PM EDT) Prothrombin Time 11.7 9.4 - 12.5 sec [facility] International Normalization Ratio 1.0 [facility] Comment: An INR <2.0 indicates adequate [...] MD HEMATOLOGY ORDERABLE S Performing Organization Address [facility] Co de Phone Number [facility] [place] [address] * POCT Glucose (11/09/2019 11:27 AM EDT) Glucose, POC 99 65 - 199 mg/dL [facility] Comment: Supplemental ranges: <140 mg/dL before meals <180 mg/dL all other times of the day Blood specimen (specimen) 11/09/2019 11:27 AM EDT 11/09/2019 11:27 AM EDT Casey Singh MD POINT OF CARE TEST O RDERABLES Performing Organization Address City/[facility]/ZIP Co de Phone Number [facility] [place] [address] * POCT Glucose (11/09/2019 7:52 AM EDT) Glucose, POC 119 65 - 199 mg/dL [facility] Comment: Supplemental ranges: <140 mg/dL before meals <180 mg/dL all other times of the day Blood specimen (specimen) 11/09/2019 7:52 AM EDT 11/09/2019 7:52 AM EDT Casey Singh MD POINT OF CARE TEST O RDERABLES Performing Organization Address [facility] de Phone Number [facility] [place] [address] * POCT Glucose (11/09/2019 7:24 AM EDT) Glucose, POC 112 65 - 199 mg/dL [facility] Comment: Supplemental ranges: <140 mg/dL before meals <180 mg/dL all other times of the day Blood specimen (specimen) 11/09/2019 7:24 AM EDT 11/09/2019 7:24 AM EDT Casey Singh MD POINT OF CARE TEST O RDERAPAMELA Performing Organization Address [facility] Co de Phone Number [facility] [place] [address] * Differential, Automated (11/09/2019 2:26 AM EDT) Neutrophil % 58.4 % [facility] Neutrophil Absolute 3.44 1.70 - 6.10 x10(3)/[facility] LAB[facility] Lymph % 26.7 % [facility] Lymphocytes Abs 1.6 0.9 - 3.2 x10(3)/[facility] Monocyte % 9.5 % [facility] Monocyte Abs 0.6 0.3 - 0.9 x10(3)/[facility] Eos % 3.9 % [facility] Eosinophils Abs 0.2 0.0 - 0.4 x10(3)/[facility] Basophil % 1.2 % [facility] Baso Absolute 0.1 0.0 - 0.1 x10(3)/[facility] Immature Gran % 0.30 % [facility] Comment: Immature granulocytes(IG's)percentage and absolute count will include metamyelocytes, myelocytes, and promyelocytes. Blood smears from CBCs yielding IG's will be scanned manually for concordance. If this scan disagrees with the automated IG or if promyelocytes are noted, a manual differential will be performed. Immature Gran Absolute 0.02 0.00 - 0.04 x10(3)/[facility] Blood specimen (specimen) 11/09/2019 2:26 AM EDT 11/09/2019 2:43 AM EDT Narrative Resulting Agency Comment Spec In Lab Maty Mcfadden APRN HEMATOLOGY ORDERABLE S Performing Organization Address City/State/[facility] Co de Phone Number [facility] [place] [address] * (ABNORMAL) Hemogram (11/09/2019 2:26 AM EDT) White Blood Cell 5.9 4.0 - 9.5 x10(3)/[facility] LABORATORY Red Blood Cell 4.27(L) 4.58 - 5.54 x10(6)/mc [facility] Hemoglobin 13.0(L) 13.7 - 16.5 gm/dL [facility] Hematocrit 39.8(L) 40.5 - 48.5 % [facility] Mean Cell Volume 93.2(H) 82.9 - 93.1 [facility] Mean Cell Hemoglobin 30.4 27.5 - 32.1 pg [facility] Mean Cell Hemoglobin Concentration 32.7 32.0 - 35.7 gm/dL [facility] Platelet 205 145 - 357 x10(3)/[facility] LABORATORY RDW Standard Deviation 44.1 36.0 - 45.0 [facility] RDW coefficient of variation 12.9 11.4 - 13.8 % [facility] Mean Platelet Volume 10.4 7.6 - 12.9 fL [facility] NRBC% auto 0.0 % [facility] NRBC Absolute 0.000 0.000 - 0.000 x10(3)/mc L [facility] Blood specimen (specimen) 11/09/2019 2:26 AM EDT 11/09/2019 2:43 AM EDT Narrative Resulting Agency Comment Spec In Lab Maty Mcfadden APRN HEMATOLOGY ORDERABLE S [facility] [place] [address] * Basic Metabolic Panel (non-fasting) (11/09/2019 2:26 AM EDT) Glucose 126 65 - 199 mg/dL [facility] Comment:Diabetes: >=200 mg/d L plus symptoms Blood Urea Nitrogen 18 10 - 20 mg/dL [facility] Creatinine 1.02 0.80 - 1.50 mg/dL [facility] Sodium 139 135 - 145 mmol/L [facility] Potassium 3.8 3.5 - 5.0 mmol/L [facility] Comment: Please note: ??Patients with WBC >100,000 may have falsely elevated Potassium levels. ??For accurate Potassium quantification in these patients send serum separator tube (gold top) for subsequent determinations. ??Contact the Clinical Chemistry Laboratory if there are any questions. Chloride 104 98 - 107 mmol/L [facility] Carbon Dioxide 23 22 - 31 mmol/L [facility] Anion Gap 12 5 - 15 mmol/L [facility] Calcium 9.1 8.5 - 10.5 mg/dL [facility] Est Glomerular Filtration Rate 73 >=60 mL/min/1. 73 m?? [facility] Comment: The eGFR was calculated using the CKD-EPI equation. As with all creatinine based estimates of kidney function, eGFR values calculated with the CKD-EPI equation are not accurate in patients with acute kidney failure, extremes of body mass or the acutely ill. [email or web address] eGFR 84 >=60 mL/min/1. 73 m?? [facility] Comment: The eGFR was calculated using the CKD-EPI equation. As with all creatinine based estimates of kidney function, eGFR values calculated with the CKD-EPI equation are not accurate in patients with acute kidney failure, extremes of body mass or the acutely ill. [email or web address] Blood specimen (specimen) 11/09/2019 2:26 AM EDT 11/09/2019 2:43 AM EDT Narrative Resulting Agency Comment Spec In Lab Casey Singh MD CHEMISTRY ORDERABLES [facility] [place] [address] * CT Head wo Contrast (Generic) (11/09/2019 1:08 AM EDT) Anatomical Region Laterality Modality Head Computed Tomogra phy Impressions 11/09/2019 2:50 AM EDT Very slight interval increase in size of the left frontal subdural hemorrhage, now 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 Grossly stable [id number] midline shift. I have personally reviewed the image(s) and the resident's interpretation and agree with the findings, Myrtle Rowan at 11/09/2019 2:50 AM Thank you for letting us participate in the care of this patient. For questions regarding this report, please contact the number below. ? Narrative 11/09/2019 2:50 AM EDT EXAMINATION: CT [...] 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 Grossly [id number] midline shift. I have personally reviewed the image(s) and the resident's interpretationand agree with the findings, Myrtle Rowan at 11/09/2019 2:50 AM Thank you for letting us participate in the care of this patient. Forquestions regarding this report, please contact the number below. Maty Mcfadden APRN IMG CT ORDERABLES * POCT Glucose (11/08/2019 8:58 PM EDT) Glucose, POC 104 65 - 199 mg/dL [facility] Comment: Supplemental ranges: <140 mg/dL before meals <180 mg/dL all other times of the day Blood specimen (specimen) 11/08/2019 8:58 PM EDT 11/08/2019 8:58 PM EDT Casey Singh MD POINT OF CARE TEST O LORI Performing Organization Address City/[facility]/ZIP Co de Phone Number [facility] [place] [address] * POCT Glucose (11/08/2019 5:37 PM EDT) Glucose, POC 120 65 - 199 mg/dL [facility] Comment: Supplemental ranges: <140 mg/dL before meals <180 mg/dL all other times of the day Blood specimen (specimen) 11/08/2019 5:37 PM EDT 11/08/2019 5:37 PM EDT Casey Singh MD POINT OF CARE TEST Sandi SANDOVAL [facility] [place] [address] * POCT Glucose (11/08/2019 11:36 AM EDT) Glucose, POC 150 65 - 199 mg/dL [facility] Comment: Supplemental ranges: <140 mg/dL before meals <180 mg/dL all other times of the day Blood specimen (specimen) 11/08/2019 11:36 AM EDT 11/08/2019 11:36 AM EDT Casey Singh MD POINT OF CARE TEST O RDERABLES [facility] [place] [address] * POCT Glucose (11/08/2019 8:05 AM EDT) [facility] Glucose, POC 118 65 - 199 mg/dL [facility] Comment: Supplemental ranges: <140 mg/dL before meals <180 mg/dL all other times of the day Blood specimen (specimen) 11/08/2019 8:05 AM EDT 11/08/2019 8:05 AM EDT Casey Singh MD POINT OF CARE TEST O LORI Performing Organization Address City/[facility]/ZIP Co de Phone Number [facility] [place] [address] * Differential, Automated (11/08/2019 2:24 AM EDT) [facility] Neutrophil % 49.8 % [facility] Neutrophil Absolute 3.22 1.70 - 6.10 x10(3)/[facility] Lymph % 33.0 % [facility] Lymphocytes Abs 2.1 0.9 - 3.2 x10(3)/[facility] Monocyte % 10.1 % [facility] Monocyte Abs 0.6 0.3 - 0.9 x10(3)/[facility] Eos % 5.7 % [facility] Eosinophils Abs 0.4 0.0 - 0.4 x10(3)/[facility] Basophil % 1.2 % [facility] Baso Absolute 0.1 0.0 - 0.1 x10(3)/[facility] Immature Gran % 0.20 % [facility] Comment: Immature granulocytes(IG's)percentage and absolute count will include metamyelocytes, myelocytes, and promyelocytes. Blood smears from CBCs yielding IG's will be scanned manually for concordance. If this scan disagrees with the automated IG or if promyelocytes are noted, a manual differential will be performed. Immature Gran Absolute 0.01 0.00 - 0.04 x10(3)/mcL [facility] Blood specimen (specimen) 11/08/2019 2:24 AM EDT 11/08/2019 2:43 AM EDT Narrative Resulting Agency Comment Spec In Lab Maty Mcfadden CLINICAL BUSINESS MANAGER HEMATOLOGY ORDERABLE S [facility] [place] [address] * (ABNORMAL) Hemogram (11/08/2019 2:24 AM EDT) White Blood Cell 6.5 4.0 - 9.5 x10(3)/ L [facility] Red Blood Cell 4.22(L) 4.58 - 5.54 x10(6)/[facility] Hemoglobin 13.0(L) 13.7 - 16.5 gm/dL [facility] Hematocrit 38.7(L) 40.5 - 48.5 % [facility] Mean Cell Volume 91.7 82.9 - 93.1 [facility] Mean Cell Hemoglobin 30.8 27.5 - 32.1 pg [facility] Mean Cell Hemoglobin Concentration 33.6 32.0 - 35.7 gm/dL [facility] Platelet 188 145 - 357 x10(3)/ L [facility] RDW Standard Deviation 43.0 36.0 - 45.0 [facility] RDW coefficient of variation 12.9 11.4 - 13.8 % [facility] Mean Platelet Volume 10.4 7.6 - 12.9 [facility] NRBC% auto 0.0 % [facility] NRBC Absolute 0.000 0.000 - 0.000 x10(3)/[facility] Blood specimen (specimen) 11/08/2019 2:24 AM EDT 11/08/2019 2:43 AM EDT Narrative Resulting Agency Comment Spec In Lab Maty Gaffneyfelix PEREZ HEMATOLOGY ORDERABLE S [facility] [place] [address] * Basic Metabolic Panel (non-fasting) (11/08/2019 2:24 AM EDT) Glucose 130 65 - 199 mg/dL [facility] Comment:Diabetes: >=200 mg/d L plus symptoms Blood Urea Nitrogen 16 10 - 20 mg/dL [facility] Creatinine 0.92 0.80 - 1.50 mg/dL [facility] Sodium 140 135 - 145 mmol/L [facility] Potassium 4.0 3.5 - 5.0 mmol/L [facility] Comment: Please note: ??Patients with WBC >100,000 may have falsely elevated Potassium levels. ??For accurate Potassium quantification in these patients send serum separator tube (gold top) for subsequent determinations. ??Contact the Clinical Chemistry Laboratory if there are any questions. Chloride 102 98 - 107 mmol/L [facility] Carbon Dioxide 26 22 - 31 mmol/L [facility] Anion Gap 12 5 - 15 mmol/L [facility] Calcium 9.2 8.5 - 10.5 mg/dL [facility] Est Glomerular Filtration Rate 82 >=60 mL/min/1. 73 m?? [facility] Comment: The eGFR was calculated using the CKD-EPI equation. As with all creatinine based estimates of kidney function, eGFR values calculated with the CKD-EPI equation are not accurate in patients with acute kidney failure, extremes of body mass or the acutely ill. [email or web address] eGFR 95 >=60 mL/min/1. 73 m?? [facility] Comment: The eGFR was calculated using the CKD-EPI equation. As with all creatinine based estimates of kidney function, eGFR values calculated with the CKD-EPI equation are not accurate in patients with acute kidney failure, extremes of body mass or the acutely ill. [email or web address] Blood specimen (specimen) 11/08/2019 2:24 AM EDT 11/08/2019 2:43 AM EDT Narrative Resulting Agency Comment Spec In Lab Casey Singh MD CHEMISTRY ORDERABLES Performing Organization Address City/[facility] Co de Phone Number [facility] [place] [address] * POCT Glucose (11/07/2019 8:55 PM EDT) Glucose, POC 130 65 - 199 mg/dL [facility] Comment: Supplemental ranges: <140 mg/dL before meals <180 mg/dL all other times of the day Blood specimen (specimen) 11/07/2019 8:55 PM EDT 11/07/2019 8:55 PM EDT Casey Singh MD POINT OF CARE TEST O RDERAPAMELA Performing Organization Address [facility] de Phone Number [facility] [place] [address] * POCT Glucose (11/07/2019 5:11 PM EDT) Glucose, POC 119 65 - 199 mg/dL [facility] Comment: Supplemental ranges: <140 mg/dL before meals <180 mg/dL all other times of the day Blood specimen (specimen) 11/07/2019 5:11 PM EDT 11/07/2019 5:11 PM EDT Casey Singh MD POINT OF CARE TEST O RDERAPAMELA Performing Organization Address [facility] Co de Phone Number [facility] [place] [address] * POCT Glucose (11/07/2019 11:53 AM EDT) Glucose, POC 106 65 - 199 mg/dL [facility] Comment: Supplemental ranges: <140 mg/dL before meals <180 mg/dL all other times of the day Blood specimen (specimen) 11/07/2019 11:53 AM EDT 11/07/2019 11:53 AM EDT Casey Singh MD POINT OF CARE TEST O LORI Performing Organization Address [facility] Co de Phone Number [facility] [place] [address] * POCT Glucose (11/07/2019 7:45 AM EDT) Glucose, POC 117 65 - 199 mg/dL [facility] Comment: Supplemental ranges: <140 mg/dL before meals <180 mg/dL all other times of the day Blood specimen (specimen) 11/07/2019 7:45 AM EDT 11/07/2019 7:45 AM EDT Casey Singh MD POINT OF CARE TEST O LORI Performing Organization Address [facility] Co de Phone Number [facility] [place] [address] * Differential, Automated (11/07/2019 1:13 AM EDT) Neutrophil % 53.9 % [facility] Neutrophil Absolute 3.54 1.70 - 6.10 x10(3)/[facility] Lymph % 29.2 % [facility] Lymphocytes Abs 1.9 0.9 - 3.2 x10(3)/[facility] Monocyte % 9.9 % [facility] Monocyte Abs 0.6 0.3 - 0.9 x10(3)/[facility] Eos % 5.3 % [facility] Eosinophils Abs 0.4 0.0 - 0.4 x10(3)/[facility] Basophil % 1.4 % [facility] Baso Absolute 0.1 0.0 - 0.1 x10(3)/[facility] Immature Gran % 0.30 % [facility] Comment: Immature granulocytes(IG's)percentage and absolute count will include metamyelocytes, myelocytes, and promyelocytes. Blood smears from CBCs yielding IG's will be scanned manually for concordance. If this scan disagrees with the automated IG or if promyelocytes are noted, a manual differential will be performed. Immature Gran Absolute 0.02 0.00 - 0.04 x10(3)/[facility] Blood specimen (specimen) 11/07/2019 1:13 AM EDT 11/07/2019 1:29 AM EDT Narrative Resulting Agency Comment Spec In Lab Maty Mcfadden APRN HEMATOLOGY ORDERABLE S [facility] [place] [address] * (ABNORMAL) Hemogram (11/07/2019 1:13 AM EDT) White Blood Cell 6.6 4.0 - 9.5 x10(3)/mc L [facility] Red Blood Cell 4.44(L) 4.58 - 5.54 x10(6)/mc L [facility] Hemoglobin 13.5(L) 13.7 - 16.5 gm/dL [facility] Hematocrit 40.5 40.5 - 48.5 % [facility] Mean Cell Volume 91.2 82.9 - 93.1 fL [facility] Mean Cell Hemoglobin 30.4 27.5 - 32.1 pg [facility] Mean Cell Hemoglobin Concentration 33.3 32.0 - 35.7 gm/dL [facility] Platelet 187 145 - 357 x10(3)/mc L [facility] RDW Standard Deviation 42.5 36.0 - 45.0 fL [facility] RDW coefficient of variation 12.9 11.4 - 13.8 % [facility] Mean Platelet Volume 10.5 7.6 - 12.9 fL [facility] NRBC% auto 0.0 % [facility] NRBC Absolute 0.000 0.000 - 0.000 x10(3)/mc L [facility] Blood specimen (specimen) 11/07/2019 1:13 AM EDT 11/07/2019 1:29 AM EDT Narrative Resulting Agency Comment Spec In Lab Maty Mcfadden CLINICAL BUSINESS MANAGER HEMATOLOGY ORDERABLE S [facility] [place] [address] * Basic Metabolic Panel (non-fasting) (11/07/2019 1:13 AM EDT) Glucose 132 65 - 199 mg/dL [facility] Comment:Diabetes: >=200 mg/d L plus symptoms Blood Urea Nitrogen 16 10 - 20 mg/dL [facility] Creatinine 0.96 0.80 - 1.50 mg/dL [facility] Sodium 139 135 - 145 mmol/L [facility] Potassium 4.1 3.5 - 5.0 mmol/L [facility] Comment: Please note: ??Patients with WBC >100,000 may have falsely elevated Potassium levels. ??For accurate Potassium quantification in these patients send serum separator tube (gold top) for subsequent determinations. ??Contact the Clinical Chemistry Laboratory if there are any questions. Chloride 106 98 - 107 mmol/L [facility] Carbon Dioxide 23 22 - 31 mmol/L [facility] Anion Gap 10 5 - 15 mmol/L [facility] Calcium 8.9 8.5 - 10.5 mg/dL [facility] Est Glomerular Filtration Rate 78 >=60 mL/min/1. 73 m?? [facility] Comment: The eGFR was calculated using the CKD-EPI equation. As with all creatinine based estimates of kidney function, eGFR values calculated with the CKD-EPI equation are not accurate in patients with acute kidney failure, extremes of body mass or the acutely ill. [email or web address] eGFR 91 >=60 mL/min/1. 73 m?? [facility] Comment: The eGFR was calculated using the CKD-EPI equation. As with all creatinine based estimates of kidney function, eGFR values calculated with the CKD-EPI equation are not accurate in patients with acute kidney failure, extremes of body mass or the acutely ill. [email or web address] Blood specimen (specimen) 11/07/2019 1:13 AM EDT 11/07/2019 1:29 AM EDT Narrative Resulting Agency Comment Spec In Lab Casey Singh MD CHEMISTRY ORDERABLES Performing Organization Address [facility] de Phone Number [facility] [place] [address] * POCT Glucose (11/06/2019 8:14 PM EDT) Glucose, POC 132 65 - 199 mg/dL [facility] Comment: Supplemental ranges: <140 mg/dL before meals <180 mg/dL all other times of the day Blood specimen (specimen) 11/06/2019 8:14 PM EDT 11/06/2019 8:14 PM EDT Casey Singh MD POINT OF CARE TEST O RDERABLES Performing Organization Address [facility] Co de Phone Number [facility] [place] [address] * POCT Glucose (11/06/2019 12:09 PM EDT) Glucose, POC 98 65 - 199 mg/dL [facility] Comment: Supplemental ranges: <140 mg/dL before meals <180 mg/dL all other times of the day Blood specimen (specimen) 11/06/2019 12:09 PM EDT 11/06/2019 12:09 PM EDT Casey Singh MD POINT OF CARE TEST O RDERABLES [facility] [place] [address] * POCT Glucose (11/06/2019 7:56 AM EDT) Glucose, POC 115 65 - 199 mg/dL [facility] Comment: Supplemental ranges: <140 mg/dL before meals <180 mg/dL all other times of the day Blood specimen (specimen) 11/06/2019 7:56 AM EDT 11/06/2019 7:56 AM EDT Casey Singh MD POINT OF CARE TEST O RDERAPAMELA Performing Organization Address City/[facility]/ZIP Co de Phone Number [facility] [place] [address] * Differential, Automated (11/06/2019 1:25 AM EDT) [facility] Neutrophil % 57.2 % [facility] Neutrophil Absolute 4.23 1.70 - 6.10 x10(3)/[facility] Lymph % 26.9 % [facility] Lymphocytes Abs 2.0 0.9 - 3.2 x10(3)/[facility] Monocyte % 10.1 % [facility] Monocyte Abs 0.8 0.3 - 0.9 x10(3)/[facility] Eos % 4.7 % [facility] Eosinophils Abs 0.4 0.0 - 0.4 x10(3)/[facility] Basophil % 0.8 % [facility] Baso Absolute 0.1 0.0 - 0.1 x10(3)/[facility] Immature Gran % 0.30 % [facility] Comment: Immature granulocytes(IG's)percentage and absolute count will include metamyelocytes, myelocytes, and promyelocytes. Blood smears from CBCs yielding IG's will be scanned manually for concordance. If this scan disagrees with the automated IG or if promyelocytes are noted, a manual differential will be performed. Immature Gran Absolute 0.02 0.00 - 0.04 x10(3)/[facility] Blood specimen (specimen) 11/06/2019 1:25 AM EDT 11/06/2019 1:41 AM EDT Narrative Resulting Agency Comment Spec In Lab Maty Mcfadden APRN HEMATOLOGY ORDERABLE S [facility] [place] [address] * (ABNORMAL) Hemogram (11/06/2019 1:25 AM EDT) White Blood Cell 7.4 4.0 - 9.5 x10(3)/[facility] Red Blood Cell 4.27(L) 4.58 - 5.54 x10(6)/[facility] Hemoglobin 13.1(L) 13.7 - 16.5 gm/dL [facility] Hematocrit 39.5(L) 40.5 - 48.5 % [facility] Mean Cell Volume 92.5 82.9 - 93.1 [facility] Mean Cell Hemoglobin 30.7 27.5 - 32.1 pg [facility] Mean Cell Hemoglobin Concentration 33.2 32.0 - 35.7 gm/dL [facility] Platelet 179 145 - 357 x10(3)/[facility] RDW Standard Deviation 42.6 36.0 - 45.0 [facility] RDW coefficient of variation 12.5 11.4 - 13.8 % [facility] Mean Platelet Volume 10.5 7.6 - 12.9 [facility] NRBC% auto 0.0 % [facility] NRBC Absolute 0.000 0.000 - 0.000 x10(3)/[facility] Blood specimen (specimen) 11/06/2019 1:25 AM EDT 11/06/2019 1:41 AM EDT Narrative Resulting Agency Comment Spec In Lab Maty Mcfadden CHRIS HEMATOLOGY ORDERABLE S [facility] [place] [address] * (ABNORMAL) Basic Metabolic Panel (non-fasting) (11/06/2019 1:25 AM EDT) Glucose 87 65 - 199 mg/dL [facility] Comment:Diabetes: >=200 mg/d L plus symptoms Blood Urea Nitrogen 12 10 - 20 mg/dL [facility] Creatinine 0.96 0.80 - 1.50 mg/dL [facility] Sodium 140 135 - 145 mmol/L [facility] Potassium 4.0 3.5 - 5.0 mmol/L [facility] Comment: Please note: ??Patients with WBC >100,000 may have falsely elevated Potassium levels. ??For accurate Potassium quantification in these patients send serum separator tube (gold top) for subsequent determinations. ??Contact the Clinical Chemistry Laboratory if there are any questions. Chloride 109(H) 98 - 107 mmol/L [facility] Carbon Dioxide 21(L) 22 - 31 mmol/L [facility] Anion Gap 10 5 - 15 mmol/L [facility] Calcium 8.8 8.5 - 10.5 mg/dL [facility] Est Glomerular Filtration Rate 78 >=60 mL/min/1. 73 m?? [facility] Comment: The eGFR was calculated using the CKD-EPI equation. As with all creatinine based estimates of kidney function, eGFR values calculated with the CKD-EPI equation are not accurate in patients with acute kidney failure, extremes of body mass or the acutely ill. [email or web address] eGFR 91 >=60 mL/min/1. 73 m?? [facility] Comment: The eGFR was calculated using the CKD-EPI equation. As with all creatinine based estimates of kidney function, eGFR values calculated with the CKD-EPI equation are not accurate in patients with acute kidney failure, extremes of body mass or the acutely ill. [email or web address] Blood specimen (specimen) 11/06/2019 1:25 AM EDT 11/06/2019 1:41 AM EDT Narrative Resulting Agency Comment Spec In Lab Casey Singh MD CHEMISTRY ORDERABLES Performing Organization Address [facility]/ZIP Co de Phone Number [facility] [place] [address] * POCT Glucose (11/05/2019 8:28 PM EDT) Glucose, POC 114 65 - 199 mg/dL [facility] Comment: Supplemental ranges: <140 mg/dL before meals <180 mg/dL all other times of the day Blood specimen (specimen) 11/05/2019 8:28 PM EDT 11/05/2019 8:28 PM EDT Casey Singh MD POINT OF CARE TEST O RDERABLES Performing Organization Address [facility] Co de Phone Number [facility] [place] [address] * POCT Glucose (11/05/2019 6:58 PM EDT) Glucose, POC 78 65 - 199 mg/dL [facility] Comment: Supplemental ranges: <140 mg/dL before meals <180 mg/dL all other times of the day Blood specimen (specimen) 11/05/2019 6:58 PM EDT 11/05/2019 6:58 PM EDT Csaey Singh MD POINT OF CARE TEST O LORI Performing Organization Address [facility] Co de Phone Number [facility] [place] [address] * (ABNORMAL) POCT Glucose (11/05/2019 6:18 PM EDT) Glucose, POC 60(L) 65 - 199 mg/dL [facility] Comment: Supplemental ranges: <140 mg/dL before meals <180 mg/dL all other times of the day Blood specimen (specimen) 11/05/2019 6:18 PM EDT 11/05/2019 6:18 PM EDT Casey Singh MD POINT OF CARE TEST O LORI [facility] [place] [address] * POCT Glucose (11/05/2019 12:02 PM EDT) Glucose, POC 73 65 - 199 mg/dL [facility] Comment: Supplemental ranges: <140 mg/dL before meals <180 mg/dL all other times of the day Blood specimen (specimen) 11/05/2019 12:02 PM EDT 11/05/2019 12:02 PM EDT Casey Singh MD POINT OF CARE TEST O LORI Performing Organization Address [facility]/ZIP Co de Phone Number [facility] [place] [address] * POCT Glucose (11/05/2019 8:11 AM EDT) Glucose, POC 70 65 - 199 mg/dL [facility] Comment: Supplemental ranges: <140 mg/dL before meals <180 mg/dL all other times of the day Blood specimen (specimen) 11/05/2019 8:11 AM EDT 11/05/2019 8:11 AM EDT Casey Singh MD POINT OF CARE TEST O LORI Performing Organization Address City/[facility]/ZIP Co de Phone Number [facility] [place] [address] * CT Head wo Contrast (Generic) (11/05/2019 [...] please contact the number below. ? Narrative 11/05/2019 4:37 AM EDT EXAMINATION: CT [...] with grossly stable 7 to 8 mm [id number] midline shift. The suprasellar and basal cisterns [...] with grossly stable 7 to 8 mm [id number] midline shift. The suprasellar and basal cisterns [...] 1:16 AM EDT) Neutrophil % 61.3 % [facility] Neutrophil Absolute 4.79 1.70 - 6.10 x10(3)/[facility] LABORATORY Lymph % 25.4 % [facility] Lymphocytes Abs 2.0 0.9 - 3.2 x10(3)/[facility] LABORATORY Monocyte % 8.3 % [facility] Monocyte Abs 0.6 0.3 - 0.9 x10(3)/[facility] LABORATORY Eos % 4.1 % [facility] Eosinophils Abs 0.3 0.0 - 0.4 x10(3)/[facility] LABORATORY Basophil % 0.8 % [facility] Baso Absolute 0.1 0.0 - 0.1 x10(3)/[facility] LABORATORY Immature Gran % 0.10 % [facility] Comment: Immature granulocytes(IG's)percentage and absolute count will include metamyelocytes, myelocytes, and promyelocytes. Blood smears from CBCs yielding IG's will be scanned manually for concordance. If this scan disagrees with the automated IG or if promyelocytes are noted, a manual differential will be performed. Immature Gran Absolute 0.01 0.00 - 0.04 x10(3)/mcL [facility] Blood specimen (specimen) 11/05/2019 1:16 AM EDT 11/05/2019 1:35 AM EDT Narrative Resulting Agency Comment Spec In Lab Maty Mcfadden CLINICAL BUSINESS MANAGER HEMATOLOGY ORDERABLE S [facility] [place] [address] * (ABNORMAL) Hemogram (11/05/2019 1:16 AM EDT) White Blood Cell 7.8 4.0 - 9.5 x10(3)/mc L [facility] Red Blood Cell 4.32(L) 4.58 - 5.54 x10(6)/mc L [facility] Hemoglobin 13.0(L) 13.7 - 16.5 gm/dL [facility] Hematocrit 40.1(L) 40.5 - 48.5 % [facility] Mean Cell Volume 92.8 82.9 - 93.1 fL [facility] Mean Cell Hemoglobin 30.1 27.5 - 32.1 pg [facility] Mean Cell Hemoglobin Concentration 32.4 32.0 - 35.7 gm/dL [facility] Platelet 175 145 - 357 x10(3)/mc L [facility] RDW Standard Deviation 43.9 36.0 - 45.0 [facility] LABORATORY RDW coefficient of variation 12.8 11.4 - 13.8 % [facility] Mean Platelet Volume 10.2 7.6 - 12.9 fL [facility] NRBC% auto 0.0 % [facility] NRBC Absolute 0.000 0.000 - 0.000 x10(3)/mc L [facility] Blood specimen (specimen) 11/05/2019 1:16 AM EDT 11/05/2019 1:35 AM EDT Narrative Resulting Agency Comment Spec In Lab Maty Mcfadden CHRIS HEMATOLOGY ORDERABLE S [facility] [place] [address] * Basic Metabolic Panel (non-fasting) (11/05/2019 1:16 AM EDT) Glucose 77 65 - 199 mg/dL [facility] Comment:Diabetes: >=200 mg/d L plus symptoms Blood Urea Nitrogen 11 10 - 20 mg/dL [facility] Creatinine 0.91 0.80 - 1.50 mg/dL [facility] Sodium 139 135 - 145 mmol/L [facility] Potassium 4.2 3.5 - 5.0 mmol/L [facility] Comment: Please note: ??Patients with WBC >100,000 may have falsely elevated Potassium levels. ??For accurate Potassium quantification in these patients send serum separator tube (gold top) for subsequent determinations. ??Contact the Clinical Chemistry Laboratory if there are any questions. Chloride 107 98 - 107 mmol/L [facility] Carbon Dioxide 22 22 - 31 mmol/L [facility] Anion Gap 10 5 - 15 mmol/L [facility] Calcium 8.8 8.5 - 10.5 mg/dL [facility] Est Glomerular Filtration Rate 83 >=60 mL/min/1. 73 m?? [facility] Comment: The eGFR was calculated using the CKD-EPI equation. As with all creatinine based estimates of kidney function, eGFR values calculated with the CKD-EPI equation are not accurate in patients with acute kidney failure, extremes of body mass or the acutely ill. [email or web address] eGFR 97 >=60 mL/min/1. 73 m?? [facility] Comment: The eGFR was calculated using the CKD-EPI equation. As with all creatinine based estimates of kidney function, eGFR values calculated with the CKD-EPI equation are not accurate in patients with acute kidney failure, extremes of body mass or the acutely ill. [email or web address] Blood specimen (specimen) 11/05/2019 1:16 AM EDT 11/05/2019 1:35 AM EDT Narrative Resulting Agency Comment Spec In Lab Casey Singh MD CHEMISTRY ORDERABLES Performing Organization Address [facility] de Phone Number [facility] [place] [address] * POCT Glucose (11/04/2019 9:00 PM EDT) [facility] Glucose, POC 82 65 - 199 mg/dL [facility] Comment: Supplemental ranges: <140 mg/dL before meals <180 mg/dL all other times of the day Blood specimen (specimen) 11/04/2019 9:00 PM EDT 11/04/2019 9:00 PM EDT Casey Singh MD POINT OF CARE TEST O RDERABLES Performing Organization Address [facility] Phone Number [facility] [place] [address] * Troponin (11/04/2019 7:19 PM EDT) [facility] Troponin-T <0.01 0.00 - 0.00 ng/mL [facility] Comment: The 99th percentile for Troponin T is less than 0.01 ng/mL, any detectable cTnT concentration using this assay should be considered elevated. According to the third universal definition of myocardial infarction the following criteria with a clinical presentation consistent with acute myocardial ischemia meets the diagnosis for a myocardial infarction (VA). Detection of a rise and/or fall of cTnT, with at least one value greater than the 99th percentile (> or = 0.01) and with at least one of the following ?? Symptoms of ischemia ?? New or presumed new significant YE-pbdsuem-A wave (ST-T) changes or new left bundle [...] additional sample may be indicated. Reference: Third [place] Definition of Myocardial Infarction. Journal of the [place] [employer] 2012;60:1581-98 Blood specimen (specimen) 11/04/2019 7:19 PM EDT 11/04/2019 7:33 PM EDT Narrative Resulting Agency Comment Spec In Lab Casey Singh MD CHEMISTRY ORDERABLES Performing Organization Address [facility] Co de Phone Number [facility] [place] [address] * EKG 12 Lead (11/04/2019 7:16 PM EDT) Ventricular rate 60 BPM MUSE SYSTEM Atrial Rate 60 BPM MUSE SYSTEM P-R Interval 166 ms MUSE SYSTEM QRS Duration 80 ms MUSE SYSTEM Q-T Interval 390 ms MUSE SYSTEM QTC Calculated (Bezet) 390 ms MUSE SYSTEM Calculated P [place] 47 degrees MUSE SYSTEM Calculated R [place] -6 degrees MUSE SYSTEM Calculated T [place] 20 degrees MUSE SYSTEM INTERPRETATION Normal sinus rhythm Normal ECG No previous ECGs available Confirmed by Dedrick Gaspar MD ([id number]) on 11/06/2019 1:56:59 PM MUSE SYSTEM 11/04/2019 7:16 PM EDT 11/06/2019 1:56 PM EDT Casey Singh MD ECG ORDERABLES Performing Organization Address [facility]/ZIP Co de Phone Number MUSE SYSTEM * POCT Glucose (11/04/2019 6:22 PM EDT) Pathologist [facility] Glucose, POC 88 65 - 199 mg/dL [facility] Comment: Supplemental ranges: <140 mg/dL before meals <180 mg/dL all other times of the day Blood specimen (specimen) 11/04/2019 6:22 PM EDT 11/04/2019 6:22 PM EDT Casey Singh MD POINT OF CARE TEST O RDCATRACHO Performing Organization Address [facility] Co de Phone Number [facility] [place] [address] * POCT Glucose (11/04/2019 4:30 PM EDT) Glucose, POC 80 65 - 199 mg/dL [facility] Comment: Supplemental ranges: <140 mg/dL before meals <180 mg/dL all other times of the day Blood specimen (specimen) 11/04/2019 4:30 PM EDT 11/04/2019 4:30 PM EDT Casey Singh MD POINT OF CARE TEST O LORI Performing Organization Address [facility] de Phone Number [facility] [place] [address] * POCT Glucose (11/04/2019 12:15 PM EDT) Glucose, POC 72 65 - 199 mg/dL [facility] Comment: Supplemental ranges: <140 mg/dL before meals <180 mg/dL all other times of the day Blood specimen (specimen) 11/04/2019 12:15 PM EDT 11/04/2019 12:15 PM EDT Casey Singh MD POINT OF CARE TEST O LORI Performing Organization Address [facility] Co de Phone Number [facility] [place] [address] * POCT Glucose (11/04/2019 7:42 AM EDT) Glucose, POC 77 65 - 199 mg/dL [facility] Comment: Supplemental ranges: <140 mg/dL before meals <180 mg/dL all other times of the day Blood specimen (specimen) 11/04/2019 7:42 AM EDT 11/04/2019 7:42 AM EDT Casey Singh MD POINT OF CARE TEST O RDERABLES [facility] [place] [address] * CT Head wo Contrast (Generic) (11/04/2019 [...] please contact the number below. ? Narrative 11/04/2019 6:39 AM EDT EXAMINATION: CT [...] 3:48 AM EDT) Neutrophil % 68.3 % [facility] Neutrophil Absolute 5.46 1.70 - 6.10 x10(3)/[facility] LABORATORY Lymph % 20.3 % [facility] Lymphocytes Abs 1.6 0.9 - 3.2 x10(3)/[facility] LABORATORY Monocyte % 9.5 % [facility] Monocyte Abs 0.8 0.3 - 0.9 x10(3)/[facility] LABORATORY Eos % 0.9 % [facility] Eosinophils Abs 0.1 0.0 - 0.4 x10(3)/[facility] LABORATORY Basophil % 0.6 % [facility] Baso Absolute 0.0 0.0 - 0.1 x10(3)/[facility] LABORATORY Immature Gran % 0.40 % [facility] Comment: Immature granulocytes(IG's)percentage and absolute count will include metamyelocytes, myelocytes, and promyelocytes. Blood smears from CBCs yielding IG's will be scanned manually for concordance. If this scan disagrees with the automated IG or if promyelocytes are noted, a manual differential will be performed. Immature Gran Absolute 0.03 0.00 - 0.04 x10(3)/mcL [facility] Blood specimen (specimen) 11/04/2019 3:48 AM EDT 11/04/2019 4:15 AM EDT Narrative Resulting Agency Comment Spec In Lab Maty Mcfadden APRN HEMATOLOGY ORDERABLE S [facility] [place] [address] * (ABNORMAL) Hemogram (11/04/2019 3:48 AM EDT) White Blood Cell 8.0 4.0 - 9.5 x10(3)/mc L [facility] Red Blood Cell 4.39(L) 4.58 - 5.54 x10(6)/mc L [facility] Hemoglobin 13.4(L) 13.7 - 16.5 gm/dL [facility] Hematocrit 40.7 40.5 - 48.5 % [facility] Mean Cell Volume 92.7 82.9 - 93.1 fL [facility] Mean Cell Hemoglobin 30.5 27.5 - 32.1 pg [facility] Mean Cell Hemoglobin Concentration 32.9 32.0 - 35.7 gm/dL [facility] Platelet 171 145 - 357 x10(3)/mc L [facility] RDW Standard Deviation 43.4 36.0 - 45.0 [facility] LABORATORY RDW coefficient of variation 12.7 11.4 - 13.8 % [facility] Mean Platelet Volume 10.6 7.6 - 12.9 fL [facility] NRBC% auto 0.0 % [facility] NRBC Absolute 0.000 0.000 - 0.000 x10(3)/mc L [facility] Blood specimen (specimen) 11/04/2019 3:48 AM EDT 11/04/2019 4:15 AM EDT Narrative Resulting Agency Comment Spec In Lab Maty Mcfadden CLINICAL BUSINESS MANAGER HEMATOLOGY ORDERABLE S [facility] [place] [address] * Basic Metabolic Panel (non-fasting) (11/04/2019 3:48 AM EDT) Glucose 97 65 - 199 mg/dL [facility] Comment:Diabetes: >=200 mg/d L plus symptoms Blood Urea Nitrogen 10 10 - 20 mg/dL [facility] Creatinine 0.91 0.80 - 1.50 mg/dL [facility] Sodium 141 135 - 145 mmol/L [facility] Potassium 4.3 3.5 - 5.0 mmol/L [facility] Comment: Please note: ??Patients with WBC >100,000 may have falsely elevated Potassium levels. ??For accurate Potassium quantification in these patients send serum separator tube (gold top) for subsequent determinations. ??Contact the Clinical Chemistry Laboratory if there are any questions. Chloride 107 98 - 107 mmol/L [facility] Carbon Dioxide 23 22 - 31 mmol/L [facility] Anion Gap 11 5 - 15 mmol/L [facility] Calcium 8.9 8.5 - 10.5 mg/dL [facility] Est Glomerular Filtration Rate 83 >=60 mL/min/1. 73 m?? [facility] Comment: The eGFR was calculated using the CKD-EPI equation. As with all creatinine based estimates of kidney function, eGFR values calculated with the CKD-EPI equation are not accurate in patients with acute kidney failure, extremes of body mass or the acutely ill. [email or web address] eGFR 97 >=60 mL/min/1. 73 m?? [facility] Comment: The eGFR was calculated using the CKD-EPI equation. As with all creatinine based estimates of kidney function, eGFR values calculated with the CKD-EPI equation are not accurate in patients with acute kidney failure, extremes of body mass or the acutely ill. [email or web address] Blood specimen (specimen) 11/04/2019 3:48 AM EDT 11/04/2019 4:15 AM EDT Narrative Resulting Agency Comment Spec In Lab Casey Singh MD CHEMISTRY ORDERABLES Performing Organization Address [facility] de Phone Number [facility] [place] [address] * POCT Glucose (11/03/2019 11:53 PM EDT) Glucose, POC 77 65 - 199 mg/dL [facility] Comment: Supplemental ranges: <140 mg/dL before meals <180 mg/dL all other times of the day Blood specimen (specimen) 11/03/2019 11:53 PM EDT 11/03/2019 11:53 PM EDT Casey Singh MD POINT OF CARE TEST O RDERABLES Performing Organization Address [facility] de Phone Number [facility] [place] [address] * POCT Glucose (11/03/2019 6:34 PM EDT) Glucose, POC 93 65 - 199 mg/dL [facility] Comment: Supplemental ranges: <140 mg/dL before meals <180 mg/dL all other times of the day Blood specimen (specimen) 11/03/2019 6:34 PM EDT 11/03/2019 6:34 PM EDT Casey Singh MD POINT OF CARE TEST O RDERAPAMELA Performing Organization Address [facility]/State/ZIP Co de Phone Number [facility] [place] [address] * IR EMBOLIZATION MIDDLE MENINGEAL ARTERY UNILATERAL [...] below. ? Electronically signed by: Hussain Christianson [facility] ([phone]), at 11/10/2019 10:28 AM Narrative 11/10/2019 10:28 [...] NB Advantage 5 Fr STEVO selective catheter, Pinnacle SL-10 microcatheter, Synchro2 microwire, 250 micron Embozene- 1 vial, 6 Barbadian Angio-Seal. DESCRIPTION: The procedure, its risks and [...] The guide catheter was removed The 5 Barbadian Kalyan catheter was then placed in the [...] Torcon NBAdvantage 5 Fr STEVO selective catheter, Pinnacle SL-10 microcatheter, [id number], 250 micron Embozene- 1 vial, 6 Barbadian Angio-Seal. DESCRIPTION: The procedure, its risks and [...] The guide catheter was removed The 5 Barbadian Kalyan catheter was then placed in the [...] number below. Electronically signed by: Hussain Christianson [facility]([phone]), at 11/10/2019 10:28 AM Casey Singh MD IMG IR ORDERABLES * (ABNORMAL) BLOOD GAS 2 ARTERIAL (11/03/2019 3:04 PM EDT) pH, Arterial 7.41 7.35 - 7.45 [facility] PCO2, Arterial 34(L) 35 - 45 mmHg [facility] PO2, Arterial 218(H) 85 - 104 mmHg [facility] Bicarbonate, Arterial 21.7 20.0 - 26.0 mmol/L [facility] Base Excess, Arterial -3.1(L) -3.0 - 3.0 mmol/L [facility] Hgb Blood Gas 14.1 13.7 - 16.5 gm/dL [facility] Oxyhemoglobin, Arterial 98.3(H) 94.0 - 97.0 % [facility] Carboxyhemoglob in, Arterial 1.0 % [facility] Comment: Nonsmokers: 0.5-1.5% COHB Smokers: Variable, but usually less than 10% Toxic: 20-30% COHB Lethal: Greater than 60% COHB Methemoglobin, Arterial 0.3 <=1.5 % [facility] Na Whole Blood 138 135 - 145 mmol/L [facility] K Whole Blood 3.8 3.5 - 5.0 mmol/L [facility] Comment: Please note: Patients with WBC >100,000 may have falsely elevated Potassium levels. Contact the Clinical Chemistry Laboratory if there are any questions. ICa Whole Blood 1.17 1.15 - 1.33 mmol/L [facility] Comment: Note: ??Total bilirubin higher than 20 mg/dL may lead to falsely low ionized calcium. CL Whole Blood 110(H) 98 - 107 mmol/L [facility] Gluc Whole Bld 84 65 - 199 mg/dL [facility] Comment:Diabetes: >=200 mg/d L plus symptoms. Lactate WB 1.3 0.5 - 2.2 mmol/L [facility] Temp Art 36.1 Celsius [facility] Blood specimen (specimen) 11/03/2019 3:04 PM EDT 11/03/2019 3:04 PM EDT Casey Singh MD POINT OF CARE TEST O LORI Performing Organization Address [facility]/ZIP Co de Phone Number [facility] [place] [address] * POCT Glucose (11/03/2019 12:13 PM EDT) Glucose, POC 92 65 - 199 mg/dL [facility] Comment: Supplemental ranges: <140 mg/dL before meals <180 mg/dL all other times of the day Blood specimen (specimen) 11/03/2019 12:13 PM EDT 11/03/2019 12:13 PM EDT Casey Singh MD POINT OF CARE TEST O LROI [facility] [place] [address] * POCT Glucose (11/03/2019 8:24 AM EDT) Glucose, POC 113 65 - 199 mg/dL [facility] Comment: Supplemental ranges: <140 mg/dL before meals <180 mg/dL all other times of the day Blood specimen (specimen) 11/03/2019 8:24 AM EDT 11/03/2019 8:24 AM EDT Casey Singh MD POINT OF CARE TEST O RDERABLES [facility] [place] [address] * Differential, Automated (11/03/2019 5:26 AM EDT) [facility] Neutrophil % 59.6 % [facility] Neutrophil Absolute 4.42 1.70 - 6.10 x10(3)/[facility] LABORATORY Lymph % 25.9 % [facility] Lymphocytes Abs 1.9 0.9 - 3.2 x10(3)/[facility] LABORATORY Monocyte % 8.2 % [facility] Monocyte Abs 0.6 0.3 - 0.9 x10(3)/[facility] LABORATORY Eos % 5.1 % [facility] Eosinophils Abs 0.4 0.0 - 0.4 x10(3)/[facility] LABORATORY Basophil % 0.9 % [facility] Baso Absolute 0.1 0.0 - 0.1 x10(3)/[facility] LABORATORY Immature Gran % 0.30 % [facility] Comment: Immature granulocytes(IG's)percentage and absolute count will include metamyelocytes, myelocytes, and promyelocytes. Blood smears from CBCs yielding IG's will be scanned manually for concordance. If this scan disagrees with the automated IG or if promyelocytes are noted, a manual differential will be performed. Immature Gran Absolute 0.02 0.00 - 0.04 x10(3)/[facility] LABOR[facility]ORY Blood specimen (specimen) 11/03/2019 5:26 AM EDT 11/03/2019 5:43 AM EDT Narrative Resulting Agency Comment Spec In Lab Maty Mcfadden APRN HEMATOLOGY ORDERABLE S [facility] [place] [address] * (ABNORMAL) Hemogram (11/03/2019 5:26 AM EDT) White Blood Cell 7.4 4.0 - 9.5 x10(3)/[facility] LABORATORY Red Blood Cell 4.46(L) 4.58 - 5.54 x10(6)/mc L [facility] Hemoglobin 13.7 13.7 - 16.5 gm/dL [facility] Hematocrit 41.8 40.5 - 48.5 % [facility] Mean Cell Volume 93.7(H) 82.9 - 93.1 [facility] Mean Cell Hemoglobin 30.7 27.5 - 32.1 pg [facility] Mean Cell Hemoglobin Concentration 32.8 32.0 - 35.7 gm/dL [facility] Platelet 187 145 - 357 x10(3)/[facility] LABORATORY RDW Standard Deviation 44.2 36.0 - 45.0 [facility] LAB[facility] RDW coefficient of variation 12.8 11.4 - 13.8 % [facility] Mean Platelet Volume 10.2 7.6 - 12.9 [facility] LAB[facility]ORY NRBC% auto 0.0 % [facility] NRBC Absolute 0.000 0.000 - 0.000 x10(3)/[facility] LABORATORY Blood specimen (specimen) 11/03/2019 5:26 AM EDT 11/03/2019 5:43 AM EDT Narrative Resulting Agency Comment Spec In Lab Maty Mcfadden APRN HEMATOLOGY ORDERABLE S [facility] [place] [address] * Basic Metabolic Panel (non-fasting) (11/03/2019 5:26 AM EDT) Glucose 104 65 - 199 mg/dL [facility] Comment:Diabetes: >=200 mg/d L plus symptoms Blood Urea Nitrogen 13 10 - 20 mg/dL [facility] Creatinine 0.99 0.80 - 1.50 mg/dL [facility] Sodium 140 135 - 145 mmol/L [facility] Potassium 4.3 3.5 - 5.0 mmol/L [facility] Comment: Please note: ??Patients with WBC >100,000 may have falsely elevated Potassium levels. ??For accurate Potassium quantification in these patients send serum separator tube (gold top) for subsequent determinations. ??Contact the Clinical Chemistry Laboratory if there are any questions. Chloride 106 98 - 107 mmol/L [facility] Carbon Dioxide 24 22 - 31 mmol/L [facility] Anion Gap 10 5 - 15 mmol/L [facility] Calcium 8.7 8.5 - 10.5 mg/dL [facility] Est Glomerular Filtration Rate 75 >=60 mL/min/1. 73 m?? [facility] Comment: The eGFR was calculated using the CKD-EPI equation. As with all creatinine based estimates of kidney function, eGFR values calculated with the CKD-EPI equation are not accurate in patients with acute kidney failure, extremes of body mass or the acutely ill. [email or web address] eGFR 87 >=60 mL/min/1. 73 m?? [facility] Comment: The eGFR was calculated using the CKD-EPI equation. As with all creatinine based estimates of kidney function, eGFR values calculated with the CKD-EPI equation are not accurate in patients with acute kidney failure, extremes of body mass or the acutely ill. [email or web address] Blood specimen (specimen) 11/03/2019 5:26 AM EDT 11/03/2019 5:43 AM EDT Narrative Resulting Agency Comment Spec In Lab Casey Singh MD CHEMISTRY ORDERABLES [facility] [place] [address] * (ABNORMAL) Hemogram (11/02/2019 11:03 PM EDT) White Blood Cell 8.6 4.0 - 9.5 x10(3)/[facility] LABORATORY Red Blood Cell 4.29(L) 4.58 - 5.54 x10(6)/[facility] LABORATORY Hemoglobin 13.2(L) 13.7 - 16.5 gm/dL [facility] Hematocrit 40.2(L) 40.5 - 48.5 % [facility] Mean Cell Volume 93.7(H) 82.9 - 93.1 [facility] LABORATORY Mean Cell Hemoglobin 30.8 27.5 - 32.1 pg [facility] Mean Cell Hemoglobin Concentration 32.8 32.0 - 35.7 gm/dL [facility] Platelet 177 145 - 357 x10(3)/mc [facility] RDW Standard Deviation 44.3 36.0 - 45.0 [facility] LABORATORY RDW coefficient of variation 13.0 11.4 - 13.8 % [facility] Mean Platelet Volume 10.1 7.6 - 12.9 [facility] LABORATORY NRBC% auto 0.0 % [facility] NRBC Absolute 0.000 0.000 - 0.000 x10(3)/ L [facility] Blood specimen (specimen) 11/02/2019 11:03 PM EDT 11/02/2019 11:07 PM EDT Narrative Resulting Agency Comment Spec In Lab Maty A Bogdan CLINICAL BUSINESS MANAGER HEMATOLOGY ORDERABLE S [facility] [place] [address] * APTT (11/02/2019 11:03 PM EDT) Partial Thromboplastin Time 31 25 - 37 sec [facility] Comment: The PTT is NOT appropriate for heparin monitoring. Use the Anti-Xa level for heparin monitoring (HEP UFH) or LMWH monitoring (HEP LMW). A PTT less than 37 seconds generally indicates adequate hemostasis. Blood specimen (specimen) 11/02/2019 11:03 PM EDT 11/02/2019 11:07 PM EDT Narrative Resulting Agency Comment Spec In Lab Maty Lin CLINICAL BUSINESS MANAGER HEMATOLOGY ORDERABLE S Performing Organization Address [facility] Co de Phone Number [facility] [place] [address] * Prothrombin Time (11/02/2019 11:03 PM EDT) Prothrombin Time 11.4 9.4 - 12.5 sec [facility] International Normalization Ratio 1.0 [facility] Comment: An INR <2.0 indicates adequate [...] Agency Comment Spec In Lab Maty Mcfadden CLINICAL BUSINESS MANAGER HEMATOLOGY ORDERABLE S Performing Organization Address City/[facility]/ZIP Co de Phone Number [facility] [place] [address] * CT Head wo Contrast (Generic) (11/02/2019 [...] please contact the number below. ? Narrative 11/02/2019 11:39 PM EDT EXAMINATION: CT [...] * POCT Glucose (11/02/2019 7:49 PM EDT) Glucose, POC 133 65 - 199 mg/dL [facility] Comment: Supplemental ranges: <140 mg/dL before meals <180 mg/dL all other times of the day Blood specimen (specimen) 11/02/2019 7:49 PM EDT 11/02/2019 7:49 PM EDT Casey Singh MD POINT OF CARE TEST O LORI [facility] [place] [address] * POCT Glucose (11/02/2019 5:06 PM EDT) Glucose, POC 98 65 - 199 mg/dL [facility] Comment: Supplemental ranges: <140 mg/dL before meals <180 mg/dL all other times of the day Blood specimen (specimen) 11/02/2019 5:06 PM EDT 11/02/2019 5:06 PM EDT Casey Singh MD POINT OF CARE TEST O LORI Performing Organization Address [facility]/ZIP Co de Phone Number [facility] [place] [address] * POCT Glucose (11/02/2019 12:31 PM EDT) Glucose, POC 111 65 - 199 mg/dL [facility] Comment: Supplemental ranges: <140 mg/dL before meals <180 mg/dL all other times of the day Blood specimen (specimen) 11/02/2019 12:31 PM EDT 11/02/2019 12:31 PM EDT Casey Singh MD POINT OF CARE TEST O LORI [facility] [place] [place] [address] * POCT Glucose (11/02/2019 8:06 AM EDT) Glucose, POC 99 65 - 199 mg/dL [facility] Comment: Supplemental ranges: <140 mg/dL before meals <180 mg/dL all other times of the day Blood specimen (specimen) 11/02/2019 8:06 AM EDT 11/02/2019 8:06 AM EDT Casey Singh MD POINT OF CARE TEST O RDERABLES [facility] [place] [address] * Differential, Automated (11/02/2019 1:01 AM EDT) [facility] Neutrophil % 54.8 % [facility] Neutrophil Absolute 4.21 1.70 - 6.10 x10(3)/[facility] LABORATORY Lymph % 29.7 % [facility]ORATORY Lymphocytes Abs 2.3 0.9 - 3.2 x10(3)/[facility] LABORATORY Monocyte % 9.0 % [facility] Monocyte Abs 0.7 0.3 - 0.9 x10(3)/[facility] LABORATORY Eos % 5.2 % [facility] Eosinophils Abs 0.4 0.0 - 0.4 x10(3)/[facility] LABORATORY Basophil % 1.0 % [facility] Baso Absolute 0.1 0.0 - 0.1 x10(3)/[facility] LABORATORY Immature Gran % 0.30 % [facility] Comment: Immature granulocytes(IG's)percentage and absolute count will include metamyelocytes, myelocytes, and promyelocytes. Blood smears from CBCs yielding IG's will be scanned manually for concordance. If this scan disagrees with the automated IG or if promyelocytes are noted, a manual differential will be performed. Immature Gran Absolute 0.02 0.00 - 0.04 x10(3)/[facility] LABORATORY Blood specimen (specimen) 11/02/2019 1:01 AM EDT 11/02/2019 1:14 AM EDT Narrative Resulting Agency Comment Spec In Lab Maty Lin CLINICAL BUSINESS MANAGER HEMATOLOGY ORDERABLE S Performing Organization Address City/[facility]/ZIP Co de Phone Number [facility] [place] [address] * (ABNORMAL) Hemogram (11/02/2019 1:01 AM EDT) White Blood Cell 7.7 4.0 - 9.5 x10(3)/ L [facility] Red Blood Cell 4.36(L) 4.58 - 5.54 x10(6)/mc L [facility] Hemoglobin 13.6(L) 13.7 - 16.5 gm/dL [facility] Hematocrit 40.6 40.5 - 48.5 % [facility] Mean Cell Volume 93.1 82.9 - 93.1 [facility] LABORATORY Mean Cell Hemoglobin 31.2 27.5 - 32.1 pg [facility] Mean Cell Hemoglobin Concentration 33.5 32.0 - 35.7 gm/dL [facility] Platelet 176 145 - 357 x10(3)/ L [facility] RDW Standard Deviation 43.7 36.0 - 45.0 [facility] LABORATORY RDW coefficient of variation 12.7 11.4 - 13.8 % [facility] Mean Platelet Volume 10.2 7.6 - 12.9 [facility] LABORATORY NRBC% auto 0.0 % [facility] NRBC Absolute 0.000 0.000 - 0.000 x10(3)/[facility] LABORATORY Blood specimen (specimen) 11/02/2019 1:01 AM EDT 11/02/2019 1:14 AM EDT Narrative Resulting Agency Comment Spec In Lab Maty Gaffneyinn CLINICAL BUSINESS MANAGER HEMATOLOGY ORDERABLE S [facility] [place] [address] * Basic Metabolic Panel (non-fasting) (11/02/2019 1:01 AM EDT) Glucose 88 65 - 199 mg/dL [facility] Comment:Diabetes: >=200 mg/d L plus symptoms Blood Urea Nitrogen 12 10 - 20 mg/dL [facility] Creatinine 1.12 0.80 - 1.50 mg/dL [facility] Sodium 141 135 - 145 mmol/L [facility] Potassium 4.0 3.5 - 5.0 mmol/L [facility] Comment: Please note: ??Patients with WBC >100,000 may have falsely elevated Potassium levels. ??For accurate Potassium quantification in these patients send serum separator tube (gold top) for subsequent determinations. ??Contact the Clinical Chemistry Laboratory if there are any questions. Chloride 107 98 - 107 mmol/L [facility] Carbon Dioxide 26 22 - 31 mmol/L [facility] Anion Gap 8 5 - 15 mmol/L [facility] Calcium 9.1 8.5 - 10.5 mg/dL [facility] Est Glomerular Filtration Rate 65 >=60 mL/min/1. 73 m?? [facility] Comment: The eGFR was calculated using the CKD-EPI equation. As with all creatinine based estimates of kidney function, eGFR values calculated with the CKD-EPI equation are not accurate in patients with acute kidney failure, extremes of body mass or the acutely ill. [email or web address] eGFR 75 >=60 mL/min/1. 73 m?? [facility] Comment: The eGFR was calculated using the CKD-EPI equation. As with all creatinine based estimates of kidney function, eGFR values calculated with the CKD-EPI equation are not accurate in patients with acute kidney failure, extremes of body mass or the acutely ill. [email or web address] Blood specimen (specimen) 11/02/2019 1:01 AM EDT 11/02/2019 1:14 AM EDT Narrative Resulting Agency Comment Spec In Lab Casey Singh MD CHEMISTRY ORDERABLES [facility] [place] [address] * COVID-19 PCR (11/01/2019 11:17 PM EDT) SARS-CoV-2 RNA (Rapid) Not Detected Not Detected [facility] Comment: This result should be interpreted [...] using the Simplexa COVID-19 Direct Assay by [employer] as authorized by the FDA issued Emergency [...] Department of Pathology and Laboratory Medicine at [facility], certified under the Clinical Laboratory Improvement Amendments [...] Information for Healthcare Professionals (https://www.cdc.gov/coronavirus/2019-ncov/hcp/index.html). SARS-CoV-2 Source FAMILY PHYSICIAN Swab MA [facility] Nasopharyngeal swab (specimen) 11/01/2019 11:17 PM EDT 11/02/2019 12:04 AM EDT Comment:Symptoms->Surveillan ce Narrative Resulting Agency Comment Spec In Lab Camila Troy MD MICROBIOLOGY - GEN ERAL ORDERABLES [facility] [place] [place] [address] * ABORH Recheck Status (11/01/2019 9:14 PM EDT) ABORH Recheck Order Order Placed [facility] ABORH Type Recheck Complete [facility] Blood specimen (specimen) 11/01/2019 9:14 PM EDT 11/01/2019 9:30 PM EDT Narrative Resulting Agency Comment Spec In Lab Maty Mcfadden CLINICAL BUSINESS MANAGER BLOOD BANK LAB ORDER EMILIANO Performing Organization Address [facility]/ZIP Co de Phone Number [facility] [place] [address] * Antibody screen (11/01/2019 9:14 PM EDT) Ab Screen Interp Negative [facility] Expires at [id number] on: 11/04/2019 [facility] Blood specimen (specimen) 11/01/2019 9:14 PM EDT 11/01/2019 9:30 PM EDT Narrative Resulting Agency Comment Spec In Lab Maty A Bogdan CLINICAL BUSINESS MANAGER BLOOD BANK LAB ORDER EMILIANO [facility] [place] [address] * ABO/Rh Typing (11/01/2019 9:14 PM EDT) ABORH Type B Pos [facility] Blood specimen (specimen) 11/01/2019 9:14 PM EDT 11/01/2019 9:30 PM EDT Narrative Resulting Agency Comment Spec In Lab Maty Mcfadden CLINICAL BUSINESS MANAGER BLOOD BANK LAB ORDER EMILIANO Performing Organization Address City/[facility]/ZIP Co de Phone Number [facility] [place] [address] * Gold Tube HOLD (11/01/2019 9:14 PM EDT) Pathologist [facility] Gold Hold Sample in lab. [facility] Blood specimen (specimen) Venous Draw / Unknown 11/01/2019 9:14 PM EDT 11/01/2019 9:30 PM EDT Maty Mcfadden CLINICAL BUSINESS MANAGER CHEMISTRY ORDERABLES [facility] [place] [address] * Differential, Automated (11/01/2019 9:14 PM EDT) Pathologist [facility] Neutrophil % 49.4 % [facility] Neutrophil Absolute 3.05 1.70 - 6.10 x10(3)/[facility] LABORATORY Lymph % 35.6 % [facility] Lymphocytes Abs 2.2 0.9 - 3.2 x10(3)/[facility] LABORATORY Monocyte % 8.8 % [facility] Monocyte Abs 0.5 0.3 - 0.9 x10(3)/[facility] LABORATORY Eos % 4.9 % [facility] Eosinophils Abs 0.3 0.0 - 0.4 x10(3)/[facility] LABORATORY Basophil % 1.1 % [facility] Baso Absolute 0.1 0.0 - 0.1 x10(3)/[facility] LABORATORY Immature Gran % 0.20 % [facility] Comment: Immature granulocytes(IG's)percentage and absolute count will include metamyelocytes, myelocytes, and promyelocytes. Blood smears from CBCs yielding IG's will be scanned manually for concordance. If this scan disagrees with the automated IG or if promyelocytes are noted, a manual differential will be performed. Immature Gran Absolute 0.01 0.00 - 0.04 x10(3)/[facility] LABORATORY Blood specimen (specimen) 11/01/2019 9:14 PM EDT 11/01/2019 9:29 PM EDT Narrative Resulting Agency Comment Spec In Lab Maty Mcfadden APRN HEMATOLOGY ORDERABLE S Performing Organization Address City/State/[facility] Co de Phone Number [facility] [place] [address] * (ABNORMAL) Hemogram (11/01/2019 9:14 PM EDT) White Blood Cell 6.2 4.0 - 9.5 x10(3)/[facility] LABORATORY Red Blood Cell 4.51(L) 4.58 - 5.54 x10(6)/mc L [facility] Hemoglobin 13.6(L) 13.7 - 16.5 gm/dL [facility] Hematocrit 41.5 40.5 - 48.5 % [facility] Mean Cell Volume 92.0 82.9 - 93.1 fL [facility] Mean Cell Hemoglobin 30.2 27.5 - 32.1 pg [facility] Mean Cell Hemoglobin Concentration 32.8 32.0 - 35.7 gm/dL [facility] Platelet 185 145 - 357 x10(3)/mc L [facility] RDW Standard Deviation 43.5 36.0 - 45.0 [facility] LABORATORY RDW coefficient of variation 12.8 11.4 - 13.8 % [facility] Mean Platelet Volume 10.4 7.6 - 12.9 fL [facility] NRBC% auto 0.0 % [facility] LABORATORY NRBC Absolute 0.000 0.000 - 0.000 x10(3)/mc L [facility] Blood specimen (specimen) 11/01/2019 9:14 PM EDT 11/01/2019 9:29 PM EDT Narrative Resulting Agency Comment Spec In Lab Maty Mcfadden CLINICAL BUSINESS MANAGER HEMATOLOGY ORDERABLE S Performing Organization Address [facility] de Phone Number [facility] [place] [address] * APTT (11/01/2019 9:14 PM EDT) Partial Thromboplastin Time 30 25 - 37 sec [facility] Comment: The PTT is NOT appropriate for heparin monitoring. Use the Anti-Xa level for heparin monitoring (HEP UFH) or LMWH monitoring (HEP LMW). A PTT less than 37 seconds generally indicates adequate hemostasis. Blood specimen (specimen) 11/01/2019 9:14 PM EDT 11/01/2019 9:29 PM EDT Narrative Resulting Agency Comment Spec In Lab Maty Mcfadden CLINICAL BUSINESS MANAGER HEMATOLOGY ORDERABLE S Performing Organization Address [facility] de Phone Number [facility] [place] [address] * Prothrombin Time (11/01/2019 9:14 PM EDT) Prothrombin Time 12.4 9.4 - 12.5 sec [facility] International Normalization Ratio 1.1 [facility] Comment: An INR <2.0 indicates adequate [...] Resulting Agency Comment Spec In Lab Matyryan Gaffneyfelix PEREZ HEMATOLOGY ORDERABLE S [facility] [place] [address] * Basic Metabolic Panel (non-fasting) (11/01/2019 9:14 PM EDT) Glucose 87 65 - 199 mg/dL [facility] Comment:Diabetes: >=200 mg/d L plus symptoms Blood Urea Nitrogen 14 10 - 20 mg/dL [facility] Creatinine 0.92 0.80 - 1.50 mg/dL [facility] Sodium 138 135 - 145 mmol/L [facility] Potassium 3.9 3.5 - 5.0 mmol/L [facility] Comment: Please note: ??Patients with WBC >100,000 may have falsely elevated Potassium levels. ??For accurate Potassium quantification in these patients send serum separator tube (gold top) for subsequent determinations. ??Contact the Clinical Chemistry Laboratory if there are any questions. Chloride 103 98 - 107 mmol/L [facility] Carbon Dioxide 23 22 - 31 mmol/L [facility] Anion Gap 12 5 - 15 mmol/L [facility] Calcium 9.2 8.5 - 10.5 mg/dL [facility] Est Glomerular Filtration Rate 82 >=60 mL/min/1. 73 m?? [facility] Comment: The eGFR was calculated using the CKD-EPI equation. As with all creatinine based estimates of kidney function, eGFR values calculated with the CKD-EPI equation are not accurate in patients with acute kidney failure, extremes of body mass or the acutely ill. [email or web address] eGFR 95 >=60 mL/min/1. 73 m?? [facility] Comment: The eGFR was calculated using the CKD-EPI equation. As with all creatinine based estimates of kidney function, eGFR values calculated with the CKD-EPI equation are not accurate in patients with acute kidney failure, extremes of body mass or the acutely ill. [email or web address] Blood specimen (specimen) 11/01/2019 9:14 PM EDT 11/01/2019 9:29 PM EDT Narrative Resulting Agency Comment Spec In Lab Maty Mcfadden CLINICAL BUSINESS MANAGER CHEMISTRY ORDERABLES Performing Organization Address [facility] Co de Phone Number [facility] [place] [address] * Film Library- Storage Only DX Chest (11/01/2019 8:28 PM EDT) Narrative [facility] 11/01/2019 8:28 PM EDT This exam is auto-finalizing. It's purpose is for storage only. Casey Singh MD IM FILM LIBRARY ORD ERABLES Performing Organization Address [facility] Co de Phone Number [place], [place] documented in this encounter Visit Diagnoses Not on filedocumented in this encounter Admitting Diagnoses Diagnosis SDH [...] Pain, Mild pain (1-3), Give per rectum (AZ) if unable to take PO. Do not [...] Given 11/04/2019 10:59 AM EDT 500 mg dextrose 10% infusion 250 mL, at 1,000 [...] Given 11/15/2019 8:03 PM EDT 750 mg famotidine (Pepcid) tablet 40 mg 40 [...] Given 11/14/2019 2:37 PM EDT 10 mg insulin lispro (HumaLOG) VIAL injection 1-5 [...] Given 11/11/2019 12:27 PM EDT 1 Units lisinopriL (Prinivil;Zestril) tablet 5 mg 5 mg, Oral, DAILY, First dose on Thu11/02/19 at 0900, Until Discontinued, Routine Given 11/16/2019 8:34 AM EDT 5 mg Given 11/15/2019 9:00 AM EDT 5 mg Given 11/13/2019 8:21 AM EDT 5 mg melatonin tablet 3 mg 3 mg, Oral, NIGHTLY, First dose on Thu11/08/19 at 0100, Until Discontinued, Routine Given 11/15/2019 8:03 PM EDT 3 mg Given 11/14/2019 8:44 PM EDT 3 mg Given 11/13/2019 8:29 PM EDT 3 mg ondansetron (ZOFRAN) injection 4-8 mg 4-8 [...] an additional 4mg, Routine oxyCODONE (Roxicodone) tablet 5 mg 5 mg, Oral, EVERY 6 HOURS PRN, Starting on Thu11/15/19 at 1230, Until Thu11/16/19 at 2010, Pain, Refractory pain not relieved by Tylenol, Routine Given 11/16/2019 5:38 PM EDT 5 mg Given 11/15/2019 8:03 PM EDT 5 mg polyethylene glycoL (Miralax) packet [...] 11/15/2019 8:04 PM EDT 2 table ts documented in this encounter Active and Recently Administered Medications Times are shown in EDT. Scheduled Medication Order 11/14/2019 11/15/2019 11/16/2019 busPIRone (Buspar) tablet 7.5 mg 7.5 mg, Oral, 2 TIMES DAILY, First dose on Thu11/14/19 at 0415, Until Discontinued, Routine 0356 (Given - Provider: Belgica Goldsmith RN)1344 (JUN Hold - Provider: Admin Adt - Reason: Transfer to a Procedural area)1604 (JUN Unhold - Provider: Admin Adt)2044 (Given - Provider: Belgica Goldsmith RN) 0901 (Given - Provider: Margie Knowles RN)2002 (Given - Provider: Basilia Rowe RN) 0836 (Given - Provider: Kary Saeed, ABIGAIL) divalproex EC (Depakote) tablet 750 mg 750 mg, Oral, 3 TIMES DAILY, First dose on Thu11/15/19 at 1500, Until Discontinued, DO NOT SPLIT, CRUSH OR OPEN, Routine 1649 (Given - Provider: Margie Knowles RN)2002 (Given - Provider: Basilia Rowe RN) 0833 (Given - Provider: Kary Saeed, ABIGAIL)1601 (Given - Provider: Kary Saeed RN) famotidine (Pepcid) tablet 40 mg 40 mg, Oral, 2 TIMES DAILY, First dose (after last modification) on Thu11/05/19 at 0900, Until Discontinued, Routine 0900 (Due - Provider: Admin Adt)1344 (JUN Hold - Provider: Admin Adt - Reason: Transfer to a Procedural area)1604 (JUN Unhold - Provider: Admin Adt)2043 (Given - Provider: Belgica Goldsmith RN) 09 (Given - Provider: Margie Knowles RN)2003 (Given - Provider: Basilia Rowe RN) 08 (Given - Provider: Kary Saeed RN) insulin [...] Admin Adt)1130 (Due - Provider: Admin Adt)1344 (JUN Hold - Provider: Admin Adt - Reason: Transfer to a Procedural area)1604 (JUN Unhold - Provider: Admin Adt)1630 (Not Given [...] area)1604 (JUN Unhold - Provider: Admin Adt) 0900 (Given - Provider: Margie Knowles, ABIGAIL) 0834 (Given - Provider: Kary Saeed RN) melatonin tablet 3 mg 3 mg, Oral, NIGHTLY, First dose on Thu11/08/19 at 0100, Until Discontinued, Routine 1344 (JUN Hold - Provider: Admin Adt - Reason: Transfer to a Procedural area)160 (JUN Unhold - Provider: Admin Adt)2043 (Given - Provider: Belgica Goldsmith RN) 2002 (Given - Provider: Basilia Rowe RN) senna-docusate (Pericolace) 8.6-50 mg per tablet [...] 1115, Until Discontinued, Recovery (Recovery-Hospital Unit), Routine 1953 (Given - Provider: Belgica Goldsmith RN)2044 (Given - Provider: Belgica Goldsmith RN) 0902 (Given - Provider: Margie Knowles, ABIGAIL) valproate (DEPACON) 500 mg in sodium chloride 0.9% 55 mL (CANCELED) 500 mg, Intravenous, EVERY 8 HOURS SCHEDULED, First dose (after last modification) on 11/12/19 at 1400, Until Discontinued, Administer over 60 [...] Belgica Goldsmith RN)0737 (Stopped - Provider: Margie Knowles, ABIGAIL) Continuous Medication Order 11/14/2019 11/15/2019 11/16/2019 sodium chloride 0.9% infusion (CANCELED) 100 mL/hr, Intravenous, CONTINUOUS, Starting on Thu11/14/19 at 0000, Until Thu11/15/19 at 1249 0019 (New Bag - Provider: Belgica Goldsmith RN)1344 (JUN Hold - Provider: Admin Adt - Reason: Transfer to a Procedural area)1604 (JUN Unhold - Provider: Admin Adt)2000 (Rate/Dose Verify - Provider: Belgica Goldsmith RN) PRN Medication Order 11/14/2019 11/15/2019 11/16/2019 acetaminophen (Tylenol) suppository 650 mg(Linked Group 2) 650 mg, Rectal, EVERY 4 HOURS PRN, Starting on Thu11/02/19 at 0024, Until Thu11/16/19 at 2011, Pain, Mild pain (1-3), Give per rectum (AZ) if unable to take PO. Do not exceed 4000 mg acetaminophen per day., Routine 0557 (See Alternative - Provider: Belgica Goldsmith RN)1344 (JUN Hold - Provider: Admin Adt - Reason: Transfer to a Procedural area)1604 (JUN Unhold - Provider: Admin Adt)1952 (See Alternative - Provider: Belgica Goldsmith RN) [...] 0557 (Given - Provider: Belgica Goldsmith RN)1344 (MAR Hold - Provider: Admin Adt - Reason: Transfer to a Procedural area)1604 (MAR Unhold - Provider: Admin Adt)1952 (Given - Provider: Belgica Goldsmith RN) 0312 (Given - Provider: Belgica Goldsmith RN)0900 (Given - Provider: Margie Knowles RN) 1216 (Given - Provider: Kary Saeed, ABIGAIL)1735 (Given - Provider: Alice Bourgeois, ABIGAIL) bisacodyL (Dulcolax) suppository 10 mg 10 mg, Rectal, DAILY PRN, Starting on Thu11/04/19 at 0814, Until Thu11/16/19 at 2010, Constipation, Routine 1344 (JUN Hold - Provider: Admin Adt - Reason: Transfer to a Procedural area)1604 ([facility] Unhold - Provider: Admin Adt) 2009 (Given [...] - Reason: Transfer to a Procedural area)1604 ([facility] Unhold - Provider: Admin Adt) dextrose 10% [...] the duration of the active insulin. 1344 (MAR Hold - Provider: Admin Adt - Reason: Transfer to a Procedural area)1604 (MAR Unhold - Provider: Admin Adt) glucagon (human recombinant) injection SolR 1 mg(Linked Group 3) 1 mg, Intramuscular, EVERY 30 MIN PRN, Starting on Thu11/02/19 at 0024, Until Thu11/16/19 at 2011, Low blood sugar, For BG 50-70 mg/dL: [...] duration of the active insulin., Routine 1344 ([facility] Hold - Provider: Admin Adt - Reason: Transfer to a Procedural area)1604 ([facility] Unhold - Provider: Admin Adt) glucose (GLUTOSE) [...] of tube = 37.5 grams., Routine 1344 ([facility] Hold - Provider: Admin Adt - Reason: Transfer to a Procedural area)1604 ([facility] Unhold - Provider: Admin Adt) hydrALAZINE (APRESOLINE) [...] labetalol ineffective after 1 hour., Routine 1344 ([facility] Hold - Provider: Admin Adt - Reason: Transfer to a Procedural area)1437 (Given - Provider: Destiny Rojo RN - Comment: SBP >160)1441 ([facility] Unhold - Provider: Destiny Rojo RN) labetalol [...] than 50 beats per minute., Routine 1344 ([facility] Hold - Provider: Admin Adt - Reason: Transfer to a Procedural area)1604 ([facility] Unhold - Provider: Admin Adt) ondansetron (ZOFRAN) injection 4-8 mg(Linked Group 4) 4-8 mg, Intravenous, EVERY 8 HOURS PRN, Starting on Thu11/02/19 at 0024, Until Thu11/16/19 at 2010, Nausea, If multiple antiemetics are ordered, use ondansetron first, prochlorperazine second, and metaclopramide third. Start with 4mg and if ineffective in 30 minutes, give an additional 4mg 1344 ([facility] Hold - Provider: Admin Adt - Reason: Transfer to a Procedural area)1604 ([facility] Unhold - Provider: Admin Adt) ondansetron (Zofran) [...] minutes, give an additional 4mg, Routine 1344 ([facility] Hold - Provider: Admin Adt - Reason: Transfer to a Procedural area)1604 ([facility] Unhold - Provider: Admin Adt) oxyCODONE (Roxicodone) tablet 10-15 mg (CANCELED) 10-15 mg, Oral, EVERY 4 HOURS PRN, Starting on Francisca 11/10/19 at 2012, Until Thu11/15/19 at 1224, Pain, severe pain (7-10), Initial dose 10mg. If pain control not adequate in 60 minutes, give additional 5mg, Routine 0557 (Given - Provider: Belgica Goldsmith RN)1344 ([facility] Hold - Provider: Admin Adt - Reason: Transfer to a Procedural area)160 ([facility] Unhold - Provider: Admin Adt)1951 (Given - Provider: Belgica Goldsmith, ABIGAIL) 031 (Given - Provider: Belgica Goldsmith RN) oxyCODONE (Roxicodone) tablet 5 mg(Linked Group 5) 5 mg, Oral, EVERY 6 HOURS PRN, Starting on Thu11/15/19 at 1230, Until Thu11/16/19 at 2010, Pain, Refractory pain not relieved by Tylenol, Routine 2002 (Given - Provider: Basilia Rowe RN) 1738 (Given - Provider: Alice Bourgeois RN) polyethylene glycoL (Miralax) packet 17 g 17 g, Oral, DAILY PRN, Starting on Thu11/04/19 at 0814, Until Thu11/16/19 at 2010, Constipation, Routine 1344 ([facility] Hold - Provider: Admin Adt - Reason: Transfer to a Procedural area)160 ([facility] Unhold - Provider: Admin Adt)2042 (Given - Provider: Belgica Goldsmith RN) 0930 (Given - Provider: Margie Knowles, ABIGAIL) senna-docusate (Pericolace) 8.6-50 mg per tablet 2 tablet (CANCELED) 2 tablet, Oral, 2 TIMES DAILY PRN, Starting on Thu11/04/19 at 0814, Until Thu11/15/19 at 1249, Constipation, Routine 1344 ([facility] Hold - Provider: Admin Adt - Reason: Transfer to a Procedural area)160 ([facility] Unhold - Provider: Admin Adt)2043 (Given - [...] Pain, Mild pain (1-3), Give per rectum (AZ) if unable to take PO. Do not [...] PRN, Starting on Thu11/15/19 at 1230, Until 11/16/19 at 2010, Pain, Refractory pain not relieved by Tylenol, Routine documented in this encounter Care Teams Bleacher [employer] Pulp Relationship Specialty Start Date End Date Shyam Harvey MD PCP - General General Internal Medicine 02/09/18 9/3 documented as of this encounter
--- OUTSIDE RECORDS SUMMARY | 2023-12-15 18:10 | XMS_ITS | Encounter Summary ---
Author Organization [facility] Address [facility] [place] [address] [address] Team Prov[address] Care [address] Service Locksmith Name Role Phone Shyam Harvey MD Primary Care Provider [phone] Reason for Visit * Auth/Cert Specialty Diagnoses / Procedures Referred By Kye walters Referred To Contact Diagnoses Subdural hemorrhage SDH (subdural hematoma) SDH WITH MIDLINE SHIFT Procedures EMERGENCY IPI Referral ID Status Reason Start Date Expiration Date Visits Re quested Visits Authorized [id number] 1 1 Encounter Details Date Type Department Care Team (Latest Contact Info) Description 11/14/2019 7:30 AM EDT - 11/14/2019 11:59 PM EDT Hospital [place] [id number] Discharge Disposition: Home Social History Tobacco Use Types Packs/Day Years Used Date Smoking Tobacco: Former Cigarettes 1 50 1 353 - 2002 Sex and Gender Information Value [...] as of this encounter Progress Notes * Lucille Stewart RN - 11/14/2019 1:27 PM EDT Angio only post procedure: Time sheath removed: 1319 Side: Right femoral artery Closure device used: Angio seal Hematoma present? No Site release time: 1322 Anticipated up time: 1522 documented in this encounter H&P Notes * Amor Singletary DO - 11/14/2019 7:36 AM EDT INTERVENTIONAL RADIOLOGY FOCUSED H&P: Procedure: Planned procedure: Cerebral angiogram and transarterial embolization of left Cognard IIIdural AVF The patient's history has been reviewed and physical exam completed. There have been no interval change in the procedural plan since Dr. Christianson's progress not dated 11/04/2019. 74 y.o. male admitted for subdural hematoma who underwent drainage and middle meningeal artery embolization on 11/03/2019. 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 Physical Exam: General: No distress. Cardiovascular: Regular rate and rhythm. Pulmonary: Unlabored breathing on room air. Clear to auscultation bilaterally. Mental Status/Cognitive: Alert. Follows commands. Answers questions appropriately. Speech: Fluent. Appropriate. Cranial Nerves: CN II - Visual acuity and doty grossly intact bilaterally. PERRL. CN III, IV, - EOMI. CN VII - No facial asymmetry. CN XI - Trapezius 5/5 bilaterally. CN XII - Tongue midline. Coordination: Heel-jung intact. Motor: No pronator drift. Tone: Normal. Power: Segment Muscle Action Right Left C5 Biceps Elbow flexion 5 5 C6 Extensor carpi radialis Wrist extension 5 5 C7 Triceps Elbow extension 5 5 C8, T1 Hand intrinsics Grasp 5 5 L2 Iliopsoas Hip flexion 5 5 L3 Quadriceps Knee extension 5 5 L4 Tibialis anterior Dorsiflexion 5 5 L5 Extensor hallucis Great toe extension 5 5 S1 Gastrocnemius Plantar flexion 5 5 The planned procedure (and sedation plan if appropriate) , its benefits and risks, and alternativeswere discussed with the patient. The patient consented to the procedure. PRE-SEDATION ASSESSMENT: Sedation Plan: anesthesia Amor Singletary DO 11/14/2019 7:42 AM documented in this encounter Miscellaneous Notes * Brief Op Note - Hussain Christianson MD - 11/14/2019 1:36 PM EDT INTERVENTIONAL RADIOLOGY BRIEF PROCEDURE NOTE Patient Name: Josue Westbrook : 1945 Case Date: 11/14/2019 Operators: Attending: Hussain Christianson MD Resident/Fellow/Student: Amor Singletary DO, Lowell Dawson MD Post-operative diagnosis/Indication: Name of Procedure Performed: Planned procedure: Cerebral angiogram and transarterial embolization of left Cognard III dural AVF Brief description of the procedure: Partial emboization of Cognard III dural arteriovenous fistula of the posterior left conveity Findings of the procedure: ?? Successful arterial access via 6F right common femoral catheter ?? Selective angiography of the left external carotid artery ?? Visualization of the left posterior convexity dural AVF with supply from middle meningeal and occipital arterial branches ?? Super selective angiography of the left middle meningeal artery ?? Partial embolization of the dural AVF from branches of the middle meningeal artery with Gregory ?? 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 Attempt to super select branches supplying the AVF coming from the occipital artery, however there was extreme tortuosity in the vessels ?? Angiography of the left common carotid artery ?? Angiogram of the right common femoral arterial access site ?? Successful closure of the right common femoral access site with Angioseal closure device EBL: <10 mL Specimens: _N/A_ Complications: No immediate Plan/Disposition: Transfer patient to neuro ICU for post procedural care. No change of parameters for blood pressure.Plan to bring Mr. Cummins to IR 3 months from for a diagnostic angiogram with possible intervention diagnostic FULL PROCEDURE NOTE TO FOLLOW IN IMAGE REPORT documented in this encounter Plan of Treatment Not on file documented as of this encounter Procedures Procedure Name Priority Date/Time Associated Diagnosis Comments IR EMBOLIZATION INTRACRANIAL Routine 11/14/2019 1:39 PM EDT POCT GLUCOSE Routine 11/14/2019 1:01 PM EDT POCT GLUCOSE Routine 11/14/2019 10:57 AM EDT documented in this encounter Results * POCT Glucose (11/14/2019 1:01 PM EDT) Glucose, POC 93 65 - 199 mg/dL [facility] Comment: Supplemental ranges: <140 mg/dL before meals <180 mg/dL all other times of the day Blood specimen (specimen) 11/14/2019 1:01 PM EDT 11/14/2019 1:[address] Evie Babb MD POINT OF CARE TEST O LORI Performing Organization Address City/[facility]/ZIP Co de Phone Number [facility] [place] [address] * POCT Glucose (11/14/2019 10:57 AM EDT) Glucose, POC 104 65 - 199 mg/dL [facility] Comment: Supplemental ranges: <140 mg/dL before meals <180 mg/dL all other times of the day Blood specimen (specimen) 11/14/2019 10:57 AM EDT 11/14/2019 10:[address] Evie Babb MD POINT OF CARE TEST O LORI Performing Organization Address City/[facility]/ZIP Co de Phone Number [facility] [place] [address] documented in this encounter Visit Diagnoses Not on filedocumented in this encounter Care Teams Road Service Locksmith Relationship Specialty Start Date End Date Shyam Harvey MD PCP - General General Internal Medicine 02/09/18 9/3 documented as of this encounter
--- OUTSIDE RECORDS SUMMARY | 2023-12-15 18:11 | XMS_ITS | Encounter Summary ---
Author Organization [facility] Address [facility] [place] [address] Care Team Providers Care Agricultural Engineering Technician Name Role Phone Shyam Harvey MD Primary Care Provider [phone] Reason for Visit * Reason Comments Hospital Transfer SDH * Auth/Cert Specialty Diagnoses / Procedures Referred By Contac t Referred To Contact Diagnoses Subdural hemorrhage SDH (subdural hematoma) SDH WITH MIDLINE SHIFT Procedures EMERGENCY IPI Referral ID Status Reason Start Date Expiration Date Visits Re quested Visits Authorized [id number] 1 1 Encounter Details Date Type Department Care Team (Late st Contact Info) Description 11/10/2019 11:35 AM EDT - 11/10/2019 2:37 PM EDT [place] [phone] [facility] [place] [address] @CRANI-SUB\EXTRADURAL HEMATOMA EVAC, PEDRO PABLO HOLE (WRVU 17.07) Social History Tobacco Use Types Packs/Day Years Used Date Smoking Tobacco: Former Cigarettes 1 50 1 953 - 2003 Tobacco Cessation:Counseling Given: No Sex and Gender Information Value Date Recorded Sex Assigned at Not on file Gender Identity Not on file Sexual Orientation Not on file documented as of this encounter Last Filed Vital Signs Vital Sign Reading Time Taken Comments Blood Pressure 141/82 11/10/2019 2:30 PM EDT Pulse 65 11/10/2019 2:30 PM EDT Temperature 36.4 ??C (97.5 ??F) 11/10/2019 2:28 PM ED T Respiratory Rate 11 11/10/2019 2:30 PM EDT Oxygen Saturation 99% 11/10/2019 2:28 PM EDT Inhaled Oxygen Concentration - - [...] DM who presented to the ED at [facility] after having anoutpatient CT scan that was [...] Local mass effect is stable with unchanged sdri-qm-zhkrr midline shift of 4 mm. The basal [...] pneumocephalus after removal of EVD. Grossly stable moph-nt-wpgar midline shift. I have personally reviewed theimage(s) [...] with grossly stable 7 to 8 mm bfvy-lp-nuobr midline shift. The suprasellar and basalcisterns remain [...] NB Advantage 5 Fr STEVO selective catheter, Cunningham SL-10 microcatheter, Synchro2 microwire, 250 micron Embozene- 1 vial, 6 Emirati Angio-Seal. DESCRIPTION: The procedure, its risks and [...] The guide catheter was removed The 5 Emirati Kalyan catheter was then placed in the [...] Electronically signed by: Hussain Christianson [facility] ([phone]), at 11/10/2019 10:28 AM Pending Studies and Lab Data: None Discharge Condition: Stable Discharge to: [facility] Future Appointments and Orders Future Orders Complete By Expires CT Head wo Contrast (Generic) [IIQ641 Custom] 12/17/2019 02/16/2020 Process Instructions: Scheduling Instructions: Questions: Clinical information / rai questions: follow-up Left side SDH Do you want to report a missing reason for exam?: Where will study be performed?: [facility] Radiology Stat read required?: Does [...] week of discharge from the hospital. Neurology [phone] Instructions Given to Patient at Discharge: Patient Instructions SURGERY FOR HEAD INJURY DISCHARGE INSTRUCTIONS PRESCRIPTION INSTRUCTIONS: Please see the medication reconciliation list on this discharge summary for a current list of your medications. Stop the use of blood thinning medications until instructed otherwise by your surgical team. This includes medications known as antiplatelet, anticoagulant, and non-steroidal anti-inflammatory (NSAIDs) drugs. Common hlve-zeg-uhfxwuz medications which should be avoided include Aspirin, [...] usual routine, 4 days after surgery. - Sutures/roebrto will need to be removed 10-14 days [...] a head injury. - When your health pediatric acute care unit nurse says you are well enough, return to your normal activities gradually, not all at once. - Talk with your health pediatric acute care unit nurse about when you can return to work. DRIVING: - Do NOT drive until cleared by Neurosurgery. FOLLOW UP PLAN: Incision: [x] Please follow up for suture/staple removal on/around November 23 with your Primary Care Provider or the Neurosurgery RN CARE TRANSITION/RN. These may also be removed at rehab. Appointments: [x] Please follow up in the Neurosurgery Clinic in 4-6 weeks with a Neurosurgery Associate Provider. Please call the Neurosurgery Office at [phone] if you do not receive a scheduled appointment within two weeks. Imaging: [x] Head CT HOW TO REACH NEUROSURGERY Contact your Doctor Office Hours: Thursday through Thursday, 8am-5pm. Call . On weekends or after office hours: Call [phone] and ask the air brush operator to page the Neurosurgery Resident supervisor contingents. IMPORTANT PHONE NUMBERS: Outpatient Nurse (Stephanie Lopez) Inpatient Nurses Neurosurgical Resident On-Call (after 5pm or before 8am) Neurosurgery offices (Thursday through Thursday between 8am-5pm): Adult Neurosurgery Dr. Luis Carlos Carranza Pediatric Neurosurgery Dr. Graham Alonso Mid-level practitioners Graham Montalvo, Physician Event Sales Representative Ab Pillai, Physician Event Sales Representative Maty Mcfadden, Nurse Practitioner Winter Schmidt, Nurse Practitioner * Your surgeon may not be education department registrar, so be ready to tell about yourself and your surgery when you call, especially after hours or on the weekend. Ade Love, SURVEY WORKER 11/16/2019 documented in this encounter Discharge Instructions * Patient Instructions* Ivan Ade Hairston, CHRIS - 11/16/2019 3:17 PM EDT SURGERY FOR HEAD INJURY DISCHARGE INSTRUCTIONS PRESCRIPTION INSTRUCTIONS: Please see the medication reconciliation list on this discharge summary for a current list of your medications. Stop the use of blood thinning medications until instructed otherwise by your surgical team. This includes medications known as antiplatelet, anticoagulant, and non-steroidal anti-inflammatory (NSAIDs) drugs. Common lasg-bfm-jkyhzfz medications which should be avoided include Aspirin, [...] a head injury. - When your health pediatric acute care unit nurse says you are well enough, return to your normal activities gradually, not all at once. - Talk with your health pediatric acute care unit nurse about when you can return to work. DRIVING: - Do NOT drive until cleared by Neurosurgery. FOLLOW UP PLAN: Incision: Please follow up for suture/staple removal on/around November 23 with your Primary Care Provider or the Neurosurgery RN CARE TRANSITION/RN. These may also be removed at rehab. Appointments: 1) Please follow up in the Neurosurgery Clinic in 4-6 weeks with a Neurosurgery Associate Provider.Please call the Neurosurgery Office at [phone] if you do not receive a scheduled appointment within two weeks. You will have a head CT at this appointment. 2) Please follow up in outpatient Neurology Clinic in 4 weeks for management of your seizure medication. You will be contacted with an appointment. Please call their office with any questions or concerns at [phone]. documented in this encounter Medications at Time [...] questions answered. Report called to RN at [facility]. VNA paperwork faxed. Patient instructed to call with concerns. * Neelam Mccall - 11/16/2019 3:59 PM EDT Office of Care Management/Investment Analyst Patient Name: Josue Nguyen : 1945 Patient has been offered an acute rehab bed at [facility] for today, 11/16/19 [facility] arranged for a 1745 transport. Ambulance will need: Medicare ambulance form completed and signed (MD or Nursing Care Partner RN/FRONT LINE LEADER) Copy of patient demographics [place] [facility] DNR/DNI order, if active Dr. Sevilla to admit Please call Nursing Report to , ask for sample maker. Info to accompany patient: Narcotic Prescriptions Copies of Medication Administration Records and IV sheets for past 10 days. Plan: Investment Analyst will be available to the patient and Nursing Care Partner-RN and/or Social Workerfor further assistance. Patient will be discharged to: [facility] Neelam Mccall Investment Analyst * Syl Najera - 11/16/2019 2:20 PM EDT Nutrition Services Note - Low Nutrition Acuity Josue Nguyen is a 74 y.o. male Reason for intervention: follow up Nutrition Plan: Continue current diet. Monitor weight. Encourage good oral intake. Support and encouragement provided. Pt was engaged with other services at time of nutrition visit, entry writer spoke with RN. Per RN report,pt [...] consulted in the interim. Syl Najera Pager: [phone] * Fariba Salas - 11/16/2019 12:45 PM EDTSummary: - System member information provided Office of Care Management-System Liaison Reviewed medical record and discussed with primary Nursing Care Partner, Chhaya Olivarez. Met with Josue Casi Dariana to discuss acute rehab level of care and provided specific information about [facility], which patient has been referred to for inpatient rehabilitation. Informed Josue Nguyen of referral review process that occurs. Discussed discharge disposition post rehab. Answered patient's questions. Patient aware of pending insurance authorization at time of this visit. Patient will be followed by primary case picker for discuss all choices and options Provided my contact number if any further questions regarding rehab or specific facility Will continue to follow along with patient's primary case picker. System Liaison will continue to assist with any discharge needs related to the above facility as needed. Fariba Salas RN BSN CRRN System Liaison Nursing Care Partner * Charlene Louis MD - 11/16/2019 3:52 [...] attenuation SDH. 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 INTERVAL HX/ROS: -Neurology re-consulted [...] shifts: In: 181 [P.O.:960; I.V.:852] Out: 3654 [Urine:3654] TRANG: out 11/12 Physical Exam: General:NAD, lying [...] out DISPO: 5W FULL CODE PLEASE PAGE [phone] WITH QUESTIONS Active Hospital Problems Diagnosis ??? SDH (subdural hematoma) Resolved Hospital Problems No resolved problems to display. Active Non-Hospital Problems Diagnosis ??? Basal cell carcinoma ??? 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 Reports earlier [...] dAVF (Isadora 3) on DSA. INTERVAL HX/ROS: -Still having [...] Weight: 83.6 kg (184 lb 4.9 oz) (07/16/20 2335) BMI (Calculated): 27.49 BMI Classification: Over [...] management DISPO: 5W FULL CODE PLEASE PAGE [phone] WITH QUESTIONS Active Hospital Problems Diagnosis ??? SDH (subdural hematoma) Resolved Hospital Problems No resolved problems to display. Active Non-Hospital Problems Diagnosis ??? Basal cell carcinoma ??? Roxy Babcock MD 11/15/2019 * Belgica Goldsmith RN [...] attenuation SDH. 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 INTERVAL HX/ROS: -Having what panic attacks vs episodes of word finding difficulty -Started on Buspirone -NPO since VT for embolization of fistula today MEDICATIONS: Scheduled [...] Motor: Feeling as though coordination is improving RUE:5 LUE:5 RLE: 5 LLE: 08/22 No upper extremity drift. LT sensation intact x 4. [place] hole sites c/d/i, closed with roberto LABS: Recent Labs 11/14/19 02011/13/19 0203 11/12/19 0133 WBC 5.8 6.3 6.4 [...] F/u need for BIT/psych consultation PLEASE PAGE [phone] WITH QUESTIONS Active Hospital Problems Diagnosis ??? [...] attenuation SDH. 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 His waxing and waning [...] w/in therapeutic range. Will be NPO at [place] for dAVF embo tmrw. Plan: - Q2HNC, then Q4H, floor status after drain removal - SBP<160 - Hold DVT ppx - Remove TRANG today - Regular diet; NPO at [place] for vascular malformation embolization tmrw - Depakote 500mg TID - F/u need for BIT/psych consultation - DISPO: transfer to 5W after removal of drain PLEASE PAGE [phone] WITH QUESTIONS Active Hospital Problems Diagnosis ??? [...] ativan is to be given without permission. [place] vest to be used if needed. Will [...] attenuation SDH. 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 INTERVAL HX/ROS: POD2 s/p [...] dry LABS: Recent Labs 11/12/19 0133 11/11/19 02011/10/19 0127 WBC 6.4 7.3 5.6 HGB 12.9* [...] attenuation SDH. 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 His waxing and waning [...] - C/s BIT/psych may occur PLEASE PAGE [phone] WITH QUESTIONS Active Hospital Problems Diagnosis ??? [...] attenuation SDH. 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 INTERVAL HX/ROS: POD1 s/p [...] attenuation SDH. 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 His waxing and waning [...] - C/s BIT/psych may occur PLEASE PAGE [phone] WITH QUESTIONS Active Hospital Problems Diagnosis ??? [...] powder, [JUN Hold] bisacodyL, [JUN Hold] lidocaine, [MAR Hold] oxyCODONE, sodium chloride 0.9 % (flush), lidocaine, [JUN Hold] ondansetron OR [JUN Hold] ondansetron, [JUN Hold] acetaminophen OR [JUN Hold] acetaminophen, [JUN Hold] labetalol, [JUN Hold] hydrALAZINE, [MAR Hold]glucose 40% oral geL OR [JUN Hold] dextrose 10% OR [JUN Hold] glucagon (human recombinant) EXAM: Vitals: Temp: [...] Recent Labs 11/10/19 0127 11/09/19 0226 11/08/19 022 WBC 5.6 5.9 6.5 HGB 13.6* 13.0* 13.0* PLATELET 232 205 188 Recent Labs 11/10/19 0127 11/09/19 0226 11/08/19 022 NA 140 139 140 K 3.9 3.8 [...] pneumocephalus after removal of EVD. Grossly stable jeyu-mm-nxcde midline shift. A/P: 74 y.o. male with PMH of HTN, HLD, and DM with progressively worsening RIGHT sided weakness found to have a large LEFT frontal/parietal mixed attenuation SDH. 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 His waxing and waning mental status on presentation raised concern for possible seizures and he was placed on video EEG without recorded seizure activity. He was again placed on video EEG on11/08/19 after episodic agitation and speech arrest. Q2HNC SBP<160 Hold DVT ppx Monitor drain output (half suction) Regular diet Keppra 500mg BID PLEASE PAGE [phone] WITH QUESTIONS Active Hospital Problems Diagnosis ??? [...] attenuation SDH. Found to have left dAVF (Val Verde 3) on DSA. 11/02/19: L SEPS placement [...] x 4 LABS: Recent Labs 11/10/19 0127 11/09/196 11/08/19 0224 WBC 5.6 5.9 6.5 HGB [...] pneumocephalus after removal of EVD. Grossly stable nahj-wg-appjq midline shift. A/P: Josue Nguyen is a [...] CODE For question please call NS pager [phone] Charlene Louis MD 11/10/2019 Clinical Documentation Improvement: [...] although he voiced frustration over his aphasia. Spring Inspector offered support. According to pt, his appetite has been off and on for the past 3-4 weeks. Pt suspects he has lost some weight but is unsure of how much. His UBW is 190 lbs, although he imagines his weight is bellow that no w. When medically appropriate, entry writer suggests collecting an updated weight. Pt [...] consulted in the interim. UMA Cardoso Pager: [phone] * Charlene Louis MD - 11/09/2019 9:57 AM EDT NEUROSURGERY PROGRESS NOTE ID: Josue Nguyen is a 74 y.o. male with PMH of HTN, HLD, and DM with progressively worsening RIGHT sided weakness found to have a large LEFT frontal/parietal mixed attenuation SDH. Found to have left dAVF (Val Verde 3) on DSA. 11/02/19: L SEPS placement [...] while walking, appears unsteady LABS: Recent Labs 11/09/1922511/08/19 0224 11/07/19 0113 WBC 5.9 6.5 6.6 HGB 13.0* 13.0* 13.5* PLATELET 205 188 187 Recent Labs 11/09/1922511/08/19 0224 11/07/19 0113 NA 139 140 139 [...] pneumocephalus after removal of EVD. Grossly stable lsow-cc-ewdzf midline shift. A/P: Josue Nguyen is a [...] NSCU FULL CODE For question please call [facility] pager [phone] Charlene Louis MD 11/09/2019 Clinical Documentation Improvement: Active Hospital Problems Diagnosis ??? SDH (subdural hematoma) Resolved Hospital Problems No resolved problems to display. * Shiv Blankenship - 11/09/2019 8:23 AM EDT Nutrition Services Note - Low Nutrition Acuity Jouse Nguyen is a 74 y.o. male Reason [...] consulted in the interim. 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 INTERVAL HX/ROS: -Episodic incidents [...] Surgical incision C/D/I LABS: Recent Labs 11/08/19 02211/07/19 0113 11/06/19 0125 WBC 6.5 6.6 7.4 [...] dAVF embo with IR tomorrow PLEASE PAGE [phone] WITH QUESTIONS Active Hospital Problems Diagnosis ??? SDH (subdural hematoma) Resolved Hospital Problems No resolved problems to display. Active Non-Hospital Problems Diagnosis ??? Basal cell carcinoma ??? Roxy Mcfadden, CHRIS 11/08/2019 * Charlene Louis MD - 11/08/2019 10:08 AM EDT NEUROSURGERY PROGRESS NOTE ID: Josue Nguyen is a 74 y.o. male with PMH of HTN, HLD, and DM with progressively worsening RIGHT sided weakness found to have a large LEFT frontal/parietal mixed attenuation SDH. Found to have left dAVF (Val Verde 3) on DSA. 11/02/19: L SEPS placement [...] midline MOTOR: RUE:5/5 LUE:5/5 RLE: 5/5 LLE: 5 No pronator drift LT sensation intact x [...] CODE For question please call NSGY pager [phone] Charlene Louis MD 11/08/2019 Clinical Documentation Improvement: Active Hospital Problems Diagnosis ??? SDH (subdural hematoma) Resolved Hospital Problems No resolved problems to display. * Jessica Smith - 11/07/2019 7:35 PM EDT Geodetic Engineer Encounter Note Patient Name: Josue Nguyen : [id number] MR#: [id number] Admit Date: 11/01/2019 6:59 PM Hospital Day 6 days Narrative: Responded to request for inclined railway operator consult. Assessment: Patient's kaiden and resiliency are sources of strength. Intervention and Outcome: Actively listened, providing spiritual support as patient engaged in life review; spiritual journeyleading to recent ordination; daughter's from addiction leading to life work in addiction recovery; of beloved November 2018. Follow-up: Geodetic Engineer remains available for support. Time in Direct [...] morning and is very excited aboutthat RUE:08/22 LUE:5 RLE: 08/22 LLE: 08/22 No pronator drift LT sensation intact x 4 L frontal SDD in place, dressing c/d/i LABS: Recent Labs 11/07/19 01111/06/1912411/05/19115 WBC 6.6 7.4 7.8 HGB 13.5* 13.1* 13.0* PLATELET 187 179 175 Recent Labs 11/07/19 01111/06/1912411/05/19115 NA 139 140 139 K 4.1 4.0 [...] -NPO, mIVFs for dAVF treatment tmrw DISPO: [facility] FULL CODE For question please call NSGY pager [phone] Charlene Louis MD 11/07/2019 Clinical Documentation Improvement: [...] CODE For question please call NS pager [phone] Tu Reyes MD 11/06/2019 Clinical Documentation Improvement: [...] frontal SDD in place, dressing c/d/i R MAMMALOGY TEACHER access site c/d/i, no hematoma, leg warm [...] CODE For question please call NSGY pager [phone] Masoud Babcock MD 11/05/2019 Clinical Documentation Improvement: [...] frontal SDD in place, dressing c/d/i R MAMMALOGY TEACHER access site c/d/i, no hematoma, leg warm [...] dAVF For question please call NSGY pager [phone] Charlene Louis MD 11/04/2019 Clinical Documentation Improvement: [...] round, and reactive to light. His right MAMMALOGY TEACHER access site was soft with a C/D/I [...] of : 1945 AGE: 74 y.o. Address: [address] [place] [phone] (home) [phone] (work) Mobile: Telephone Information: Referring Provider: Devonte [...] updated For question please call NSGY pager [phone] Charlene Louis MD 11/03/2019 Clinical Documentation Improvement: Active Hospital Problems Diagnosis ??? SDH (subdural hematoma) Resolved Hospital Problems No resolved problems to display. * Charlene Louis MD - 11/02/2019 1:14 PM EDT [facility] Middle Meningeal Embolization Trial Enrollment The study (Middle Meningeal Artery Embolization for Treatment of Chronic Subdural Hematomas - A randomized control trial, IRB ID [id number], Approved 02/03/19 by [facility]B) was discussed and explained to [...] and one copy will be scanned into [facility] and kept on file. NIHSS 1.a. Level [...] than one modality TOTAL SCORE: 5 Modified Loíza Scale (mRS) 0 - No symptoms. 1 [...] score Charlene Louis MD 11/02/2019 1:18 PM [facility] Neurosurgery Inpatient Pager: #[phone] Personal Pager: #[phone] * Charlene Louis MD - 11/02/2019 9:22 [...] 12 14 CREATININE 1.12 0.92 Recent Labs 11/01/194 PT 12.4 INR 1.1 IMAGING: None new. [...] HTN HLD TIIDM Plan: -Q2H neuro checks, [facility] status -Talk w about bedside drainage; plan for SEPS drain -Con't w EEG -AEDs per Neurology; Keppra 500 BID for now -Hold ap/ac -Bedrest For question please call [employer] pager [phone] Charlene Louis MD 11/02/2019 Clinical Documentation Improvement: Active Hospital Problems Diagnosis ??? SDH (subdural hematoma) Resolved Hospital Problems No resolved problems to display. * Radha Frank RN - 11/02/2019 6:31 AM EDT Josue Nguyen arrived to [facility] @ 0000 from ED. Oriented to room, [...] UPDATE Josue Nguyen was seen in [facility]. The patient's history and physical exam have [...] attenuation LEFT subdural hematoma on outside facility ([facility]) CT of the head on 10/31 from. [...] file Gets together: Not on file Attends lutheran service: Not on file Active member of [...] attenuation LEFT subdural hematoma on outside facility ([facility]) CT of the head on 10/31 from. [...] CC: SDH HPI: History is obtained from [facility] ED records and partially from patient. This is a 74 y.o. male with PMH of HTN, HLD, and DM who presented to the ED at [facility] after having anoutpatient CT scan that was [...] file Gets together: Not on file Attends lutheran service: Not on file Active member of [...] use Vitals: Vitals: 11/01/19 1915 11/01/19 1930 11/01/19 19411/01/191999 BP: 132/57 131/69 136/75 128/71 Patient Position: [...] Judge MD - 11/08/2019 11:29 PM EDT [facility] Department of Neurology Critical Care Continuous EEG Report Patient: Josue Nguyen, [id number] Date: 11/08/19 Start Time: 11/08/19 20:39 End Time: 11/09/19 02:09 Fellow: Osbaldo Judge MD Attending: Vishal Whitman MD History: 74 yo M with a large left SDH s/p SEPS on 11/02/19. EEG for episodes of confusion concerning for seizures. Methods: A 21 channel digitized electroencephalogram was performed in the Neurologic Critical Care Unit by the [facility] Clinical Neurophysiology Laboratory. The 10/20 international [...] Judge MD 11/08/2019 11:29 PM Personal pager: [phone] Epilepsy Fellow Associated attestation - Wild Whitman MD - 11/14/2019 4:45 PM EDT EPILEPSY ATTENDING ADDENDUM - I reviewed the EEG with the PHYSICIAN OFFICE NURSE/Epilepsy fellow, and I agree with the interpretation as documented. Wild Whitman MD, PhD Top Case Assembler of Neurology [facility] Clinical Neurophysiology Laboratory * Osbaldo Judge MD - 11/03/2019 10:07 PM EDT [facility] Department of Neurology Critical Care Continuous EEG Report Patient: Josue Nguyen, [id number] Date: 11/03/19 Start Time: 11/03/19 07:30 End Time: 11/03/19 13:10 Fellow: Osbaldo Judge MD Attending: Vinnie Gary MD PhD History: 74 yo M with a large left SDH s/p evacuation and episodes of confusion concerning for seizures. Methods: A 21 channel digitized electroencephalogram was performed in the Neurologic Critical Care Unit by the [facility] Clinical Neurophysiology Laboratory. The 10/20 international [...] Judge MD 11/03/2019 10:07 PM Personal pager: [phone] Epilepsy Fellow Associated attestation - Vinnie Gary Jr., MD - 11/04/2019 4:36 PM EDT I have reviewed the EEG with the fellow and agree with the assessment above. Vinnie Gary MD, PhD Department of Neurology Personal Pager [phone] 11/04/2019 4:36 PM * Charlene Louis MD - 11/03/2019 12:14 PM EDT [facility] NEUROSURGERY OPERATIVE NOTE Patient: Josue Nguyen [...] 30 degrees in the neutral position. A [place] Time-Out Protocol was performed, and the operative [...] Judge MD - 11/02/2019 12:38 PM EDT [facility] Department of Neurology Critical Care Continuous EEG Report Patient: Josue Nguyen, [id number] Date: 11/03/19 Start Time: 11/02/19 07:30 End Time: 11/03/19 07:30 Fellow: Osbaldo Judge MD Attending: Vinnie Gary MD PhD History: 74 yo M with a large left SDH s/p evacuation and episodes of confusion concerning for seizures. Methods: A 21 channel digitized electroencephalogram was performed in the Neurologic Critical Care Unit by the [facility] Clinical Neurophysiology Laboratory. The 10/20 international [...] Judge MD 11/03/2019 12:38 PM Personal pager: [phone] Epilepsy Fellow Associated attestation - Vinnie Gary Jr., MD - 11/03/2019 1:04 PM EDT I have reviewed the EEG with the fellow and agree with the assessment above. Vinnie Gary MD, PhD Department of Neurology Personal Pager #[phone] 11/03/2019 1:04 PM * Charlene Louis MD - 11/02/2019 12:05 PM EDT [facility] NEUROSURGERY OPERATIVE NOTE Patient: Josue Nguyen : 1945 DATE OF PROCEDURE: 11/02/2019 ATTENDING SURGEON: Dr. Casey Singh MD WARP KNITTER HELPER SURGEON: Dr. Charlene Louis MD PREOPERATIVE DIAGNOSIS: [...] 30 degrees in the neutral position. A [place] Time-Out Protocol was performed, and the operative [...] Judge MD - 11/02/2019 11:12 AM EDT [facility] Department of Neurology Critical Care Continuous EEG Report Patient: Josue Nguyen, [id number] Date: 11/02/19 Start Time: 11/02/19 03:13 End Time: 11/02/19 07:30 Fellow: Osbaldo Judge MD Attending: Vinnie Gary MD PhD History: 74 yo M with a large left SDH and episodes of confusion concerning for seizures. Methods: A 21 channel digitized electroencephalogram was performed in the Neurologic Critical Care Unit by the [facility] Clinical Neurophysiology Laboratory. The 10/20 international [...] Judge MD 11/02/2019 11:12 AM Personal pager: [phone] Epilepsy Fellow Associated attestation - Vinnie Gary Jr., MD - 11/02/2019 12:56 PM EDT I have reviewed the EEG with the fellow and agree with the assessment above. This recording appearsessentially normal, aside from moderate bradycardia. Vinnie Gary MD, PhD Department of Neurology Personal Pager #[phone] 11/02/2019 12:56 PM documented in this encounter ED Notes * Alissa Garnica NRP - 11/01/2019 10:48 PM EDT Neuro provider bedside for eval * Alissa Garnica NRP - 11/01/2019 9:39 PM EDT Providers bedside for eval. Pt still alert/oriented but drowsy. Daughter Loretta updated by phone, would like update when plan is in place: [phone] * Winter Tsang RN - 11/01/2019 9:27 [...] headache, reports headache as worstever. Neuro surge SURVEY WORKER paged and made aware of change in [...] and type II diabetes [facility] a [facility] subdural hematoma found [...] screen Result Value Ref Range Expires at 2354 on: 11/04/2019 ABORH Recheck Status Result Value [...] Neurosurgery service. Kristian Macario MD Resident 11/01/19 2968 Associated attestation - Camila Troy MD - [...] 11/01/2019 7:34 PM EDT Pt arrived from [facility] after dx of L SDH. Pt reporting [...] I accepted in transfer from Dr. Brown, [facility] ED The patient will be evaluated in [...] 64 168/[address]. Reyes from urg on the call. Pt. will be transferred to the [facility] ED to be seen by the ED team and by neurosurgery. Nirav Romero MD 11/01/19 8031 documented in this encounter Miscellaneous Notes * Care Management - Chhaya Olivarez RN - 11/16/2019 4:28 PM EDTSummary: Discharge planning D/C planning: Team: Neurosurg Pager: [phone] [facility] at 5:45pm today. Pt is aware of d/c plan and isin agreement. Chhaya Olivarez MSN, RN CM combination technician Office of Care Management Pager #[phone] * Plan of Care - Kary Saeed [...] * Plan of Care - Syd Kaiser, CONFIDENTIAL SECRETARY - 11/16/2019 11:33 AM EDT Physical Therapy [...] morning Social History: Home set-up: Lives in [facility] () in an apartment Bathroom [...] Severe Impairment: Cannot do safely. FINAL SCORE: Note: After test, pt had two instances of loss of balance while turning requiring Alexsander to prevent fall. Possibly r/t fatigue References: 1. Norma Romo, Ellie J, Carlos Hairston. Reliability of the Dynamic Gait Index in individuals with neurological disorders, Disabil Rehabil. 2012; 34(19): 4973-9032. 2. Rajinder PK, Maryann NK, Jetter AM, et al. Sensitivity to Change and Responsiveness of Four Balance Measures for Community-Dwelling Older Adults, Ecommerce Project Manager. 2012; 92: 388-397. 3. Marcus DEVINE. Vestibular Rehabilitation. 2nd ed. [place], [place]: [employer]; 1999. 4. Gustavo Rose. Motor Control Theory and Applications, [employer] [place], 1995: 323-324 Education: patient has been educated [...] Total Evaluation Minutes, Physical Therapy: 30(TEF, TEN ([id number])) Syd Kaiser PTA Pager: [phone] Physical Therapy Inpatient Rehabilitation Department * Consult Note - Shannon Garcia MD - 11/16/2019 6:10 AM EDT Neurology Progress Note 11/16/2019 Patient Name: Josue Nguyen Admit Date: 11/01/2019 Patient ID: Josue Nguyen is a 74 y.o. presenting with PMHx of HTN, HLD, DM2 who presents in transfer from [facility] with a LEFT subdural hematoma (presumed acute [...] L Elbow flexion 4/5 R, 5/5 L Automotive Glass Specialist LE: 4/5 R, 5/5 L Hip flexion [...] HLD, DM2 who presents in transfer from [facility] with a LEFT subdural hematoma (presumed acute [...] Neurology Resident 11/16/2019 Neurology Consult Service Pager #[phone] Associated attestation - Winter Hays MD - 11/17/2019 10:52 PM EDT Neurology Attending Note Winter Hays MD (Pg [phone]) I certify that I have seen and [...] Minimal 1 assist Surveillance [continuous indirect monitoring]: phototypesetting equipment monitor, pulse oximetry, purposeful hourlyrounding, call reddy [...] HLD, DM2 who presents in transfer from [facility] with a LEFT subdural hematoma (presumed acute [...] L Elbow flexion 4/5 R, 5/5 L Automotive Glass Specialist LE: 4/5 R, 5/5 L Hip flexion [...] HLD, DM2 who presents in transfer from [facility] with a LEFT subdural hematoma (presumed acute [...] Neurology Resident 11/15/2019 Neurology Consult Service Pager #[phone] Associated attestation - Winter Hays MD - 11/16/2019 4:49 PM EDT Neurology Attending Note Winter Hays MD (Pg [phone]) I certify that I have seen and [...] for d/c. Chhaya Olivarez MSN, RN CM combination technician Office of Care Management Pager #[phone] * Plan of Care - Adia Edwards OT - 11/15/2019 11:34 AM EDT Occupational Therapy Treatment Note Treatment Number OT: 5 Patient profile: Per MD on 11/14: 74 y.o.??male??with PMH of HTN, HLD, and DM with progressively worsening RIGHT sided weakness found to have a large LEFT frontal/parietal mixed attenuation SDH. 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 His waxing and waning [...] Laterality Date ??? PRO PERM OCCLUSION/EMBOLIZATION, PERCUT, HEADER MACHINE OPERATOR N/A 11/03/2019 ?? @TRANSCATHETER OCCLUSION/EMBOLIZATION FOR TUMOR DESTRUCTION performed by Hussain Christianson MD at [facility] ??? TONSILLECTOMY ? Social [...] difficulty this session ?? Vision: ?? Glasses signal timer Pain: 0/10 Education: Pt/family/caregiver education ongoing regarding: [...] Minutes, Occupational Therapy: 29(2 SC ) Pager: [phone] Adia Edwards OT Occupational Therapy Rehabilitation Department [...] Adia Edwards MS, OTR/L Occupational Therapist Pager: [phone] Inpatient Rehabilitation Services * Consult Note - Chrissy Santana RN - 11/14/2019 4:47 AM EDT Images from the original note were not included. Infiltration/Extravasation Scale Josue Nguyen [id number] N524/N524-A Infiltration appearance: Infiltration harm % for this extremity 13% Based on measurement calculation (greatest measurement Xdivided by length of extremity multiplied by 100= %) Considerations and Ari: Consider the following: If the percentage of [...] AM Name of Plastics MD (if consulted) GAUGE CHECKER CARING FOR THIS PATIENT WILL CONTINUE TO [...] Subgaleal drain removed. PLAN MOVING FORWARD: ?? Z6hbsdu/ N7vcyiu checks NPO at midnight for embolization in [...] sanguinous drainage. ?? PLAN MOVING FORWARD: ?? O7xppsm/vital checks Monitor subgaleal drain ?? INDIVIDUALIZED FALL [...] placed on 11/02. LLA embolization on 11/02. Lawtons holes for DSH drainage 11/10/19. ?? Past Medical History Past Medical History: Diagnosis Date ??? Diabetes mellitus ? Hypertension ? Past Surgical History Past Surgical History: Procedure Laterality Date ??? PRO PERM OCCLUSION/EMBOLIZATION, PERCUT, HEADER MACHINE OPERATOR N/A 11/03/2019 ?? @TRANSCATHETER OCCLUSION/EMBOLIZATION FOR TUMOR DESTRUCTION performed by Hussain Christianson MD at [facility] ??? TONSILLECTOMY ? Social [...] of Visospatial/ Execution, Fluency, and Delayed Recall. [place] Cognitive Assessment (MoCA) Results: Visuospatial/Exec / Trails Test 0/1 Cube Copy 1/ Clock: Contour 04/20 Clock: Numbers 0/1 Clock: Hands Naming 3/3 (of 3) Attention [...] greater considered normal ?? Vision: ?? Glasses signal timer Pain: 0/10 Education: Pt/family/caregiver education ongoing regarding: [...] 1x schm) ; 1 cog skills Pager: [phone] DILIP Holloway OTA Occupational Therapy Rehabilitation Department [...] answer at this time. PLAN MOVING FORWARD: C1gkksd/vital checks Monitor subgaleal drain INDIVIDUALIZED FALL PREVENTION [...] as needed. Chhaya Olivarez MSN, RN CM combination technician Office of Care Management Pager #[phone] * Plan of Care - Syd Kaiser [...] done Social History: Home set-up: Lives in [facility] () in an apartment Bathroom [...] Total Evaluation Minutes, Physical Therapy: 30(GT, CHANDRIKA ([id number])) Syd Kaiser, CONFIDENTIAL SECRETARY Pager: [phone] Physical Therapy Inpatient Rehabilitation Department * Plan of Care - Adia Edwards OT - 11/11/2019 12:08 PM EDT Occupational Therapy Treatment Note Treatment Number OT: 3 Patient profile: Josue Nguyen??is a 74 y.o.??male??with PMH of HTN, HLD, and DM with progressively worsening RIGHT sided weakness found to have a large LEFT frontal/parietal mixed attenuation SDH.??L SEPS drain placement on 11/01. SDD placed on 11/02. LLA embolization on 11/02. Lawtons holes for DSH drainage 11/10/19. ?? Past Medical History Past Medical History: Diagnosis Date ??? Diabetes mellitus ? Hypertension ? Past Surgical History Past Surgical History: Procedure Laterality Date ??? PRO PERM OCCLUSION/EMBOLIZATION, PERCUT, HEADER MACHINE OPERATOR N/A 11/03/2019 ?? @TRANSCATHETER OCCLUSION/EMBOLIZATION FOR TUMOR DESTRUCTION performed by Hussain Christianson MD at [facility] ??? TONSILLECTOMY ? Social [...] ambulated ~150ft with FWW and CGA with QUALITY ENG and returning to room ?? Cognition: ?? [...] requested to stop. ?? Vision: ?? Glasses signal timer ?? Vitals: 107/53, HR 67, O2 98 [...] Therapy: 10 ; 1 cog skills Pager: [phone] Adia Edwards OT Occupational Therapy Rehabilitation Department * Plan of Care - Uche East RN - 11/11/2019 4:09 AM EDT Problem: Patient Care Overview Goal: Plan of Care Review Outcome: Ongoing (Interventions Implemented as Appropriate) 11/10/19 0706 11/10/191999 Coping/Psychosocial Plan Of Care Reviewed With -- patient Plan of Care Review Progress progress toward functional goals is gradual -- OUTCOME EVALUATION NOTE: OUTCOME SUMMARY: Pt A+Ox4 overnight, status has improved to strengths 5/5 in all four extremities. Pts head was painful at the beginning of the night bc pain management had not been changed since preop. NS MD increased pain management which has been [...] still a patient Goal: Interdisciplinary Rounds/Family Conf 07/19/20 1530 Interdisciplinary Rounds/Family Conf Participants family;advanced practice nurse;nursing;patient;physician * Plan of Care - Frances Cuevas RN - 11/10/2019 6:02 PM EDT Problem: Patient Care Overview Goal: Plan of Care Review 11/10/19 1306 Coping/Psychosocial Plan Of Care Reviewed With patient [...] Hematoma. POSTOPERATIVE DIAGNOSIS: 1. Same OPERATION/PROCEDURE: 1. Lawtons hole for evacuation of left subdural hematoma [...] the head turned to the right. A [place] Time-Out Protocol was performed, and the operative [...] bluntly dissected Bovie electrocautery and a #1 [place]. A high-speed drill with a laboratory animal care veterinarian bit was used to place bur holes [...] Brief Operative Note Patient Name: Josue Nguyen DOB: [id number] MR#: [id number] Case Date: 11/10/2019 Surgeon: Surgeon(s) and Role: [...] Brief Operative Note Patient Name: Josue Nguyen DOB: [id number] MR#: [id number] Case Date: 11/10/2019 Surgeon: Surgeon(s) and Role: [...] Adia Edwards MS, OTR/L Occupational Therapist Pager: [phone] Inpatient Rehabilitation Services * Plan of Care [...] this time in hospital course [ ] [facility] * Plan of Care - Danial Perez RN - 11/09/2019 6:09 PM EDT Problem: Patient Care Overview Goal: Plan of Care Review Outcome: Ongoing (Interventions Implemented as Appropriate) 11/09/19 545 Coping/Psychosocial Plan Of Care Reviewed With patient [...] need insurance auth prior to going to [facility] if a bed is offered. CM will continue to monitor and assist with d/c planning as needed. Chhaya Olivarez MSN, RN CM combination technician Office of Care Management Pager #[phone] * Consult Note - Oralia Patel I - 11/08/2019 9:02 PM EDT Neurology Progress Note 11/08/2019 Patient Name: Josue Nguyen Admit Date: 11/01/2019 Patient ID: Josue Nguyen is a 74 y.o. presenting with PMHx of HTN, HLD, DM2 who presents in transfer from [facility] with a LEFT subdural hematoma (presumed acute [...] story. History obtained from bedside nurse and component technician and confirmed with patient. Physical Exam: [...] L Elbow flexion 4/5 R, 5/5 L Automotive Glass Specialist LE: 4/5 R, 5/5 L Hip flexion [...] HLD, DM2 who presents in transfer from [facility] with a LEFT subdural hematoma (presumed acute [...] Neurology Resident 11/08/2019 Neurology Consult Service Pager #[phone] Associated attestation - Josue Reyes MD - 11/14/2019 5:01 PM EDT Neurology Attending Note Josue Reyes MD PhD (pager [phone]) I have seen and examined Josue Nguyen [...] tmrw Social History: Home set-up: Lives in [facility] () in an apartment Bathroom [...] Total Evaluation Minutes, Physical Therapy: 37(TEF, GT, CHNADRIKA ([id number])) Syd Kaiser, CONFIDENTIAL SECRETARY Pager: [phone] Physical Therapy Inpatient Rehabilitation Department * Plan [...] Laterality Date ??? PRO PERM OCCLUSION/EMBOLIZATION, PERCUT, HEADER MACHINE OPERATOR N/A 11/03/2019 ?? @TRANSCATHETER OCCLUSION/EMBOLIZATION FOR TUMOR DESTRUCTION performed by Hussain Christianson MD at [facility] ??? TONSILLECTOMY ? Social [...] ?? Safety awareness: WFL ?? Upon this entry writer entering Pt room; noted with decreased ability to follow one step commands and make wants and needs known. Therapist alerted RN; when RN performed neuro-check Pt oriented x4. ?? Pt then noted with ability to maintain orientation during session with occasional word finding difficulties ?? Vision: ?? Glasses signal timer ?? Vitals: 97/53, HR 68, O2 98 [...] Minutes, Occupational Therapy: 29(2 SC ) Pager: [phone] Adia Edwards OT Occupational Therapy Rehabilitation Department [...] this time in hospital course [ ] [facility] Goal: Fall Prevention-Safe Patient Handling Outcome: Ongoing (Interventions Implemented as Appropriate) 11/06/19 15311/08/19 0710 11/08/19 1143 Daily Care Interventions Self-Care [...] Control Outcome: Ongoing (Interventions Implemented as Appropriate) 11/08/1970911/08/19 1143 Safety Interventions Isolation Precautions -- standard [...] this time in hospital course [ ] [facility] * Plan of Care - Enoc [...] this time in hospital course [ ] [facility] Goal: Infection Control Outcome: Ongoing (Interventions [...] response * Plan of Care - Frances Cuevas, ABIGAIL - 11/07/2019 5:04 AM EDT Problem: Patient [...] FORWARD: Q2 neuro and vitals Procedure Thursday DC planning INDIVIDUALIZED FALL PREVENTION INTERVENTIONS: Patient-specific [...] this time in hospital course [ ] [facility] Goal: Fall Prevention-Safe Patient Handling Outcome: [...] Handling Outcome: Ongoing (Interventions Implemented as Appropriate) 11/04/19129911/04/19199911/05/19 0400 [place] Fall Risk History of Falling [...] discharge. ?? I have met with the patient/national sales representative to discuss discharge planning needs. I have provided the [facility], Office of Care Management letter from the Business Rules Analyst pertaining to rehab referrals. I have also provided a letter describing our affiliations within the [facility] and educated them about their right to choose where referrals are. ?? Provided patient with CMS Star Quality Rating for SNF, LTAC and/or IRF hand out. ?? I reviewed the different levels of rehab including SNF, swing, acute and LTAC with the patient/national sales representative. ?? The patient/national sales representative has been provided a list of facilities within their preferred geographic area. ?? I have requested that the patient/national sales representative provide at least three choices for referral. ?? The patient/national sales representative have requested referrals to: ?? 1. [facility] ?? Expected date of discharge: 11/07/19 Note routed to Investment Analyst who will communicate referrals to facilities and provide any required information. Chhaya PALOMINO, RN CM combination technician Office of Care Management Pager #[phone] * Plan of Care - Steffen Almazan, [...] Laterality Date ??? PRO PERM OCCLUSION/EMBOLIZATION, MARV, HEADER MACHINE OPERATOR N/A 11/03/2019 @TRANSCATHETER OCCLUSION/EMBOLIZATION FOR TUMOR DESTRUCTION performed by Hussain Christianson MD at [facility] ??? TONSILLECTOMY Active Non-Hospital Problems Diagnosis ??? Basal cell carcinoma ??? Tinea pedis Social History: Home set-up: Lives in [facility] () in an apartment Bathroom [...] to person, place, and time Vision: glasses signal timer Skin: SDD on head; femoral incision Musculoskeletal: [...] outlinedin this evaluation. Time IN / OUT: 9255-3442 Total Evaluation Minutes, Physical Therapy: 32(eval; TEF) Steffen Almazan, PT Pager: [phone] Physical Therapy Inpatient Rehabilitation Department * Plan of Care - Neelam Flanagan OT - 11/04/2019 10:31 AM EDT Occupational [...] Laterality Date ??? PRO PERM OCCLUSION/EMBOLIZATION, PERCUT, HEADER MACHINE OPERATOR N/A 11/03/2019 @TRANSCATHETER OCCLUSION/EMBOLIZATION FOR TUMOR DESTRUCTION performed by Hussain Christianson MD at [facility] ??? TONSILLECTOMY Social History: [...] and measurable assessment of functional outcome. Pager: [phone] NEELAM FLANAGAN OT 11/04/2019 Occupational Therapy Rehabilitation [...] Brief description of the procedure: ?? Right MAMMALOGY TEACHER access with micropuncture technique and placement of [...] with 250 um Embozene particles ?? Right MAMMALOGY TEACHER roadmap ?? Closure of right MAMMALOGY TEACHER access with Mynx closure device Findings of [...] as able/appropriate. Steffen Almazan PT, DPT Pager [phone] Inpatient Rehabilitation * Plan of Care - Adia Edwards, OT - 11/03/2019 1:01 PM EDT Occupational Therapy Contact Note: Order received and chart reviewed. Per RN; Pt on bedrest and awaiting embolization later today. Plan to follow-up tomorrow as Pt is appropriate and as activity orders are updated. Adia Edwards MS, OTR/L Occupational Therapist Pager: [phone] Inpatient Rehabilitation Services * Consult Note - Shannon Garcia MD - 11/03/2019 6:44 AM EDT Neurology Inpatient Consult Note - 11/03/2019 Admit date: 11/01/2019 Attending: Casey Singh MD ID: Josue Nguyen is a 74 y.o. male with PMHx of HTN, HLD, DM2 [facility] (presumed acute on [...] 5 mg Oral Daily Bogdan, Maty A, SURVEY WORKER 5 mg at ??? metFORMIN (Glucophage) tablet 1,000 mg 1,000 mg Oral BID WC Bogdan, Maty A, SURVEY WORKER 1,000 mg at 11/02/19 1753 ??? sodium chloride 0.9 % (flush) flush 5 mL 5 mL Intravenous BID Bogdan, Maty A, SURVEY WORKER 5 mL at 11/02/19 2100 ??? sodium chloride 0.9 % (flush) flush 5-20 mL 5-20 mL Intravenous Q1 Min PRN Bogdan, Maty A, SURVEY WORKER ??? lidocaine (XYLOCAINE) 10 mg/mL (1 %) injection 3 mg 0.3 mL Subcutaneous Once PRN Bogdan, Maty A, SURVEY WORKER ??? docusate sodium (Colace) capsule 100 mg 100 mg Oral BID Bogdan, Maty A, SURVEY WORKER 100 mg at ??? ondansetron (Zofran) tablet 4-8 mg 4-8 mg Oral Q8H PRN Bogdan, Maty A, SURVEY WORKER Or ??? ondansetron (ZOFRAN) injection 4-8 mg 4-8 mg Intravenous Q8H PRN Bogdan, Maty A, SURVEY WORKER ??? acetaminophen (Tylenol) tablet 650 mg 650 mg Oral Q4H PRN Bogdan, Maty A, SURVEY WORKER 650 mg at 11/02/19 1838 Or ??? acetaminophen (Tylenol) suppository 650 mg 650 mg Rectal Q4H PRN Bogdan, Maty A, SURVEY WORKER ??? labetalol (NORMODYNE,TRANDATE) injection 10-20 mg 10-20 mg Intravenous Q1H PRN Bogdan, Maty A, SURVEY WORKER ??? hydrALAZINE (APRESOLINE) injection 10 mg 10 mg Intravenous Q1H PRN Bogdan, Maty A, SURVEY WORKER ??? levETIRAcetam (Keppra) tablet 500 mg 500 mg Oral BID Bogdan, Maty A, SURVEY WORKER 500 mg at 11/02/192026 Or ??? levETIRAcetam (KEPPRA) 500 mg in sodium chloride 0.82% 100 mL 500 mg Intravenous BID Bogdan, Maty A, SURVEY WORKER ??? glucose (GLUTOSE) 40% oral geL 15-30 g Buccal Q30 Min PRN Bogdan, Maty A, SURVEY WORKER Or ??? dextrose 10% infusion 250 mL Intravenous Q30 Min PRN Bogdan, Maty A, SURVEY WORKER Or ??? glucagon (human recombinant) injection SolR 1 mg 1 mg Intramuscular Q30 Min PRN Bogdan, Maty A,SURVEY WORKER ??? insulin lispro (HumaLOG) VIAL injection 1-5 Units 1-5 Units Subcutaneous TID AC Bogdan, Maty A,SURVEY WORKER ??? ceFAZolin (ANCEF) 1g in dextrose 5% 50mL 1 g Intravenous Q8H Charlene Louis MD Stopped at 11/03/19 0431 ??? sodium chloride 0.9% infusion 100 mL/hr Intravenous Continuous Bogdan, Maty A, SURVEY WORKER 100 mL/hr at 11/03/19 0352 100 mL/hr [...] file Gets together: Not on file Attends lutheran service: Not on file Active member of [...] Flexor digitorum profundus Digit II-V flexion / manager market intelligence 4 5 L2-3 Iliopsoas Hip flexion 4 [...] Last 3 Coags Recent Labs 11/02/19 2303 11/01/192113 PT 11.4 12.4 INR 1.0 1.1 PTT [...] HLD, DM2 who presents in transfer from [facility] with a LEFT subdural hematoma (presumed acute [...] patient. x Recommendations are above, please page [phone] if further consultation is required. Shannon Garcia MD Neurology, PGY-3 Consult Neurology Service #[phone] 11/03/2019 Associated attestation - Josue Reyes MD - 11/13/2019 7:30 PM EDT Neurology Attending Note Josue Reyes MD PhD (pager [phone]) I have seen and examined Josue Nguyen [...] this time in hospital course [ ] [facility] * Care Management - Chhaya Olivarez RN - 11/02/2019 3:55 PM EDT This CM along with FRONT LINE LEADER called and spoke to pt's dtr to gather more information for d/c planning. Dtr,, Loretta, stated that pt was very independent and active in the community prior to hospitalization.Due to the remote location of where the pt lives, there is very limited community support. Loretta states pt has a friend, Guadalupe, who lives in [place], [place] and a grandson, ex-son in law who livesin [place], [place]. Pt's dtr is very supportive, but lives in [place]. Pt's dtr stated she would be happy to support her father going for a rehab stay prior to returning home and VNA afterward if needed. Per dtr, pt has not had VNA, but pt's has prior to her passing. Also, pt has been to [facility] in the past. Pt's dtr stated concern of COVID exposure, pt's dtr was educated on the screening process for pt's coming into facilities and staff prior to coming into buildingsfor work daily. CM will continue to monitor and assist with d/c planning as needed. Chhaya Olivarez MSN, RN CM combination technician Office of Care Management Pager #[phone] * Initial Assessments - Biju Lewis MSW - 11/02/2019 8:05 AM EDT Office of Care Management Initial Assessment JENNIFER Vega reviewed record and discussed patient with Care Team. Source of Information: Patient (slow and whimsical in responses), Chart, Treatment Team Introduced self/reviewed role; services accepted. Reason for Hospitalization: transfer from [facility] with a LEFT subdural hematoma (presumed acute [...] note- 11/02/2019 ??2:58 AM) Home Environment: [address] single level home Social & Family Supports/Community Resources: daughter in [place], daughter in [place], sister in [place], wifes family, friends Behavioral Health History: a major period of anxiety following 's of COPD Substance Use/Abuse: Tobacco Use ??? Smoking status: Former Smoker- quit in 2002 ??? Smokeless tobacco: Never Used Substance Use Topics ??? Alcohol use: once of twice per year ??? Drug use: No Other Pertinent/Service Specific Information: worked at [facility] for a decade Health/Prescription Coverage: Primary Insurance: [facility] MANAGED MEDICARE Secondary Insurance: N/A Prescription Coverage: yes Preferred Pharmacy: [facility] Primary Care Provider: Shyam Harvey MD [phone] Patient/Caregiver Goals of Treatment: To be independent Potential Needs for Transition of Care: Rehab/SNF: [facility] if required Home Health: Never had agreed to [place] if required DME: :I just got a can last week when this started to get bad Dialysis:NA Community Resources: Available Transportation: states he has plenty of people to take him home but sister from [place] called bedside nurse to say she is uncertain if he can get a ride from anyone Anticipated Barriers to Discharge/Special Considerations: none Assessment: 74 y.o. male with PMH of HTN, HLD, and DM who presented to the ED at [facility] after having an outpatient CT scan that [...] transition of care planning. JENNIFER Vega Pager: [phone] * Consult Note - Daquna Kline MD - 11/02/2019 2:58 AM EDT Neurology Inpatient Consult Note - 11/02/2019 Admit date: 11/01/2019 Attending: Casey Singh MD ID: Josue Nguyen is a 74 y.o. male with PMHx of HTN, HLD, DM2 who [facility] (presumed acute on [...] 5 mg Oral Daily Bogdan, Maty A, SURVEY WORKER ??? metFORMIN (Glucophage) tablet 1,000 mg 1,000 mg Oral BID WC Bogdan, Maty A, SURVEY WORKER ??? docusate sodium (Colace) capsule 100 mg 100 mg Oral BID Bogdan, Maty A, SURVEY WORKER ??? ondansetron (Zofran) tablet 4-8 mg 4-8 mg Oral Q8H PRN Bogdan, Maty A, SURVEY WORKER Or ??? ondansetron (ZOFRAN) injection 4-8 mg 4-8 mg Intravenous Q8H PRN Bogdan, Maty A, SURVEY WORKER ??? acetaminophen (Tylenol) tablet 650 mg 650 mg Oral Q4H PRN Bogdan, Maty A, SURVEY WORKER Or ??? acetaminophen (Tylenol) suppository 650 mg 650 mg Rectal Q4H PRN Bogdan, Maty A, SURVEY WORKER ??? labetalol (NORMODYNE,TRANDATE) injection 10-20 mg 10-20 mg Intravenous Q1H PRN Bogdan, Maty A, SURVEY WORKER ??? hydrALAZINE (APRESOLINE) injection 10 mg 10 mg Intravenous Q1H PRN Bogdan, Maty A, SURVEY WORKER ??? levETIRAcetam (Keppra) tablet 500 mg 500 mg Oral BID Bogdan, Maty A, SURVEY WORKER Or ??? levETIRAcetam (KEPPRA) 500 mg in sodium chloride 0.82% 100 mL 500 mg Intravenous BID Bogdan, Maty A, SURVEY WORKER ??? glucose (GLUTOSE) 40% oral geL 15-30 g Buccal Q30 Min PRN Bogdan, Maty A, SURVEY WORKER Or ??? dextrose 10% infusion 250 mL Intravenous Q30 Min PRN Bogdan, Maty A, SURVEY WORKER Or ??? glucagon (human recombinant) injection SolR 1 mg 1 mg Intramuscular Q30 Min PRN Bogdan, Maty A,SURVEY WORKER ??? insulin lispro (HumaLOG) VIAL injection 1-5 Units 1-5 Units Subcutaneous TID AC Bogdan, Maty A,SURVEY WORKER ??? sodium chloride 0.9% infusion 100 mL/hr Intravenous Continuous Bogdan, Maty A, SURVEY WORKER 100 mL/hr at 11/01/19 2136 100 mL/hr [...] file Gets together: Not on file Attends lutheran service: Not on file Active member of [...] Flexor digitorum profundus Digit II-V flexion / manager market intelligence 4 5 L2-3 Iliopsoas Hip flexion 4 [...] HLD, DM2 who presents in transfer from [facility] with a LEFT subdural hematoma (presumed acute [...] follow patient. Recommendations are above, please page [phone] if further consultation is required. Patient discussed with Dr. Fely Santos. Daquan Kline MD Neurology, PGY-4 Consult Neurology Service #[id number] 11/02/2019 Associated attestation - Josue Reyes MD - 11/10/2019 3:26 AM EDT Neurology Attending Note Josue Reyes MD PhD (pager [phone]) I have seen and examined Josue Nguyen [...] Denies any s/s currently. 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 documented in this encounter Plan of Treatment [...] 11/15/2019 1:36 AM EDT DIFFERENTIAL, AUTOMATED Routine 11/15/19 20 1:36 AM EDT HC CBC,PLT & AUTO [...] ARTERIAL POC Routine 0 8:43 AM EDT HEMOGRAM Routine 11/14/2019 2:05 AM EDT DIFFERENTIAL, AUTOMATED Routine 11/14/19 20 2:05 AM EDT HC CBC,PLT & AUTO [...] 11/13/2019 2:03 AM EDT DIFFERENTIAL, AUTOMATED Routine 11/13/19 20 2:03 AM EDT HC CBC,PLT & AUTO [...] 11/12/2019 1:33 AM EDT DIFFERENTIAL, AUTOMATED Routine 11/12/19 20 1:33 AM EDT HC CBC,PLT & AUTO [...] 11/11/2019 2:07 AM EDT DIFFERENTIAL, AUTOMATED Routine 11/11/19 20 2:07 AM EDT HC CBC,PLT & AUTO DIFF Routine 0 2:07 AM EDT HC VENIPUNCTURE Routine 11/11/2019 2:07 AM EDT POCT GLUCOSE Routine 11/10/2019 10:12 PM EDT POCT GLUCOSE Routine 11/10/2019 5:04 PM EDT POCT GLUCOSE Routine 11/10/2019 2:31 PM EDT CRANI-SUB\EXTRADURAL HEMATOMA EVAC, PEDRO PABLO HOLE Routine 11/10/2019 2:08 PM EDT [place] Evac Subdur/Extra Hematoma (28850) 11/10/2019 12:39 PM EDT Subdural hematoma POCT GLUCOSE Routine 11/10/2019 11:30 AM EDT POCT GLUCOSE Routine 11/10/2019 10:59 AM EDT POCT GLUCOSE Routine 11/10/2019 8:12 AM EDT HEMOGRAM Routine 11/10/2019 1:27 AM EDT DIFFERENTIAL, AUTOMATED Routine 11/10/19 20 1:27 AM EDT HC CBC,PLT & AUTO [...] 11/09/2019 2:26 AM EDT DIFFERENTIAL, AUTOMATED Routine 11/09/19 2:26 AM EDT HC CBC,PLT & AUTO [...] 11/08/2019 2:24 AM EDT DIFFERENTIAL, AUTOMATED Routine 11/08/19 2:24 AM EDT HC CBC,PLT & AUTO DIFF Routine 0 2:24 AM EDT HC VENIPUNCTURE Routine 11/08/2019 2:24 AM EDT POCT GLUCOSE Routine 11/07/2019 8:55 PM EDT POCT GLUCOSE Routine 11/07/2019 5:11 PM EDT POCT GLUCOSE Routine 11/07/2019 11:53 AM EDT POCT GLUCOSE Routine 11/07/2019 7:45 AM EDT HEMOGRAM Routine 11/07/2019 1:13 AM EDT DIFFERENTIAL, AUTOMATED Routine 11/07/19 1:13 AM EDT HC CBC,PLT & AUTO DIFF Routine 0 1:13 AM EDT HC VENIPUNCTURE Routine 11/07/2019 1:13 AM EDT POCT GLUCOSE Routine 11/06/2019 8:14 PM EDT POCT GLUCOSE Routine 11/06/2019 12:09 PM EDT POCT GLUCOSE Routine 11/06/2019 7:56 AM EDT HEMOGRAM Routine 11/06/2019 1:25 AM EDT DIFFERENTIAL, AUTOMATED Routine 11/06/19 1:25 AM EDT HC CBC,PLT & AUTO [...] 11/05/2019 1:16 AM EDT DIFFERENTIAL, AUTOMATED Routine 11/05/19 20 1:16 AM EDT HC CBC,PLT & AUTO [...] 11/04/2019 3:48 AM EDT DIFFERENTIAL, AUTOMATED Routine 11/04/19 20 3:48 AM EDT HC CBC,PLT & AUTO [...] 11/03/2019 5:26 AM EDT DIFFERENTIAL, AUTOMATED Routine 11/03/19 20 5:26 AM EDT HC CBC,PLT & AUTO [...] 11/02/2019 1:01 AM EDT DIFFERENTIAL, AUTOMATED Routine 11/02/19 20 1:01 AM EDT HC CBC,PLT & AUTO DIFF Routine 0 1:01 AM EDT HC VENIPUNCTURE Routine 11/02/2019 1:01 AM EDT RAPID COVID-19 PCR ([facility]) STAT 11/01/2019 11:17 PM EDT ABORH RECHECK STATUS STAT 11/01/2019 9:14 PM EDT HEMOGRAM STAT 11/01/2019 9:14 PM EDT DIFFERENTIAL, AUTOMATED STAT 11/01/19 20 9:14 PM EDT GOLD TUBE HOLD STAT [...] density of left-sided subdural hematoma with improved wgus-vv-nnrfi midline shift. 2. 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 Thank you for letting us participate in the care of this patient. For questions regarding this report, please contact the number below. ? Electronically signed by: TALI Nava [facility] ([phone]), at 12/23/2019 12:15 PM Narrative 12/23/2019 12:15 [...] cm. Mass effect has improved. Improvement of sgdt-zp-ynrwh midline shift which is now minimal. The [...] 1.8 cm. Mass effect hasimproved. Improvement of urdi-ke-xxpgi midline shift which is now minimal. Thebasilar cisterns remain patent. No acute intracranial hemorrhage, mass,hydrocephalus, or evidence of large acute infarction. Left-sided pedro pablo hole craniotomychanges are again noted. IMPRESSION 1. Interval improvement in size and density of left-sided subduralhematoma with improved qwci-vp-ugtvv midline shift. 2. 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 Thank you for letting us participate in the care of this patient. Forquestions regarding this report, please contact the number below. Electronically signed by: Alley Hart [facility] ([phone]),at 12/23/2019 12:15 PM Casey Singh MD IMG CT ORDERABLES * POCT Glucose (11/16/2019 4:08 PM EDT) Glucose, POC 108 65 - 199 mg/dL [facility] Comment: Supplemental ranges: <140 mg/dL before meals <180 mg/dL all other times of the day Blood specimen (specimen) 11/16/2019 4:08 PM EDT 11/16/2019 4:08 PM EDT Casey Singh MD POINT OF CARE TEST O LOIR Performing Organization Address [facility] Co de Phone Number [facility] [place] [address] * POCT Glucose (11/16/2019 12:15 PM EDT) Glucose, POC 104 65 - 199 mg/dL [facility] Comment: Supplemental ranges: <140 mg/dL before meals <180 mg/dL all other times of the day Blood specimen (specimen) 11/16/2019 12:15 PM EDT 11/16/2019 12:15 PM EDT Casey Singh MD POINT OF CARE TEST O LORI [facility] [place] [address] * POCT Glucose (11/16/2019 7:48 AM EDT) Glucose, POC 109 65 - 199 mg/dL [facility] Comment: Supplemental ranges: <140 mg/dL before meals <180 mg/dL all other times of the day Blood specimen (specimen) 11/16/2019 7:48 AM EDT 11/16/2019 7:48 AM EDT Casey Singh MD POINT OF CARE TEST O RDERABLES Performing Organization Address City/[facility]/ZIP Co de Phone Number [facility] [place] [address] * POCT Glucose (11/15/2019 8:00 PM EDT) Glucose, POC 111 65 - 199 mg/dL [facility] Comment: Supplemental ranges: <140 mg/dL before meals <180 mg/dL all other times of the day Blood specimen (specimen) 11/15/2019 8:00 PM EDT 11/15/2019 8:00 PM EDT Casey Singh MD POINT OF CARE TEST O RDERAPAMELA Performing Organization Address [facility] Co de Phone Number [facility] [place] [address] * Valproic Acid Level, Total (11/15/2019 4:31 PM EDT) Pathologist [facility] [place] Valproic Acid 43 mg/L [facility] Comment: Therapeutic Range: Anticonvulsant Therapy: ??50-100 mg/L Manic Episodes Associated with Bipolar Disorder: ??50-125 mg/L Blood specimen (specimen) 11/15/2019 4:31 PM EDT 11/15/2019 4:48 PM EDT Narrative Resulting Agency Comment Spec In Lab Casey Singh MD CHEMISTRY ORDERABLES Performing Organization Address City/[facility]/ZIP Co de Phone Number [facility] [place] [address] * POCT Glucose (11/15/2019 4:09 PM EDT) Glucose, POC 114 65 - 199 mg/dL [facility] Comment: Supplemental ranges: <140 mg/dL before meals <180 mg/dL all other times of the day Blood specimen (specimen) 11/15/2019 4:09 PM EDT 11/15/2019 4:09 PM EDT Casey Singh MD POINT OF CARE TEST O RDERABLES [facility] [place] [address] * CT Head wo Contrast (Generic) (11/15/2019 3:21 PM EDT) Anatomical Region Laterality Modality Head Computed Tomogra phy Impressions 11/15/2019 3:43 PM EDT No significant interval change. Thank you for letting us participate in the care of this patient. For questions regarding this report, please contact the number below. ? Electronically signed by: TALI Nava [facility] ([phone]), at 11/15/2019 3:43 PM Narrative 11/15/2019 3:43 PM EDT EXAMINATION: CT [...] Local mass effect is stable with unchanged qjrx-us-fmhli midline shift of 4 mm. The basal [...] Local mass effect is stable with unchanged vigx-nk-ljunh midline shift of4 mm. The basal cisterns [...] Electronically signed by: Alley Hart [facility] ([phone]),at 11/15/2019 3:43 PM Casey Singh MD G CT ORDERABLES * POCT Glucose (11/15/2019 11:56 AM EDT) Glucose, POC 114 65 - 199 mg/dL [facility] Comment: Supplemental ranges: <140 mg/dL before meals <180 mg/dL all other times of the day Blood specimen (specimen) 11/15/2019 11:56 AM EDT 11/15/2019 11:56 AM EDT Casey Singh MD POINT OF CARE TEST O RDERABLES [facility] [place] [address] * POCT Glucose (11/15/2019 8:07 AM EDT) Glucose, POC 113 65 - 199 mg/dL [facility] Comment: Supplemental ranges: <140 mg/dL before meals <180 mg/dL all other times of the day Blood specimen (specimen) 11/15/2019 8:07 AM EDT 11/15/2019 8:07 AM EDT Casey Singh MD POINT OF CARE TEST O RDERABLES [facility] [place] [address] * Differential, Automated (11/15/2019 1:36 AM EDT) Neutrophil % 57.7 % [facility] Neutrophil Absolute 3.41 1.70 - 6.10 x10(3)/[facility] Lymph % 25.8 % [facility] Lymphocytes Abs 1.5 0.9 - 3.2 x10(3)/[facility] Monocyte % 13.0 % [facility] Monocyte Abs 0.8 0.3 - 0.9 x10(3)/[facility] Eos % 2.0 % [facility] Eosinophils Abs 0.1 0.0 - 0.4 x10(3)/[facility] Basophil % 1.0 % [facility] Baso Absolute 0.1 0.0 - 0.1 x10(3)/[facility] Immature Gran % 0.50 % [facility] Comment: Immature granulocytes(IG's)percentage and absolute count will include metamyelocytes, myelocytes, and promyelocytes. Blood smears from CBCs yielding IG's will be scanned manually for concordance. If this scan disagrees with the automated IG or if promyelocytes are noted, a manual differential will be performed. Immature Gran Absolute 0.03 0.00 - 0.04 x10(3)/[facility] Blood specimen (specimen) 11/15/2019 1:36 AM EDT 11/15/2019 2:02 AM EDT Narrative Resulting Agency Comment Spec In Lab Tu Reyes MD HEMATOLOGY ORDERABLE S [facility] [place] [address] * (ABNORMAL) Hemogram (11/15/2019 1:36 AM EDT) White Blood Cell 5.9 4.0 - 9.5 x10(3)/mc L [facility] Red Blood Cell 3.82(L) 4.58 - 5.54 x10(6)/mc L [facility] Hemoglobin 11.8(L) 13.7 - 16.5 gm/dL [facility] Hematocrit 35.6(L) 40.5 - 48.5 % [facility] Mean Cell Volume 93.2(H) 82.9 - 93.1 [facility] Mean Cell Hemoglobin 30.9 27.5 - 32.1 pg [facility] Mean Cell Hemoglobin Concentration 33.1 32.0 - 35.7 gm/dL [facility] Platelet 235 145 - 357 x10(3)/mc L [facility] RDW Standard Deviation 44.7 36.0 - 45.0 [facility] RDW coefficient of variation 13.0 11.4 - 13.8 % [facility] Mean Platelet Volume 10.4 7.6 - 12.9 [facility] NRBC% auto 0.0 % [facility] NRBC Absolute 0.000 0.000 - 0.000 x10(3)/mc L [facility] Blood specimen (specimen) 11/15/2019 1:36 AM EDT 11/15/2019 2:02 AM EDT Narrative Resulting Agency Comment Spec In Lab Tu Reyes MD HEMATOLOGY ORDERABLE S [facility] [place] [address] * (ABNORMAL) Basic Metabolic Panel (non-fasting) (11/15/2019 1:36 AM EDT) Glucose 113 65 - 199 mg/dL [facility] Comment:Diabetes: >=200 mg/d L plus symptoms Blood Urea Nitrogen 9(L) 10 - 20 mg/dL [facility] Creatinine 0.92 0.80 - 1.50 mg/dL [facility] Sodium 138 135 - 145 mmol/L [facility] Potassium 4.2 3.5 - 5.0 mmol/L [facility] Comment: Please note: ??Patients with WBC >100,000 may have falsely elevated Potassium levels. ??For accurate Potassium quantification in these patients send serum separator tube (gold top) for subsequent determinations. ??Contact the Clinical Chemistry Laboratory if there are any questions. Chloride 105 98 - 107 mmol/L [facility] Carbon Dioxide 26 22 - 31 mmol/L [facility] Anion Gap 7 5 - 15 mmol/L [facility] Calcium 8.6 8.5 - 10.5 mg/dL [facility] Est Glomerular Filtration Rate 82 >=60 mL/min/1. 73 m?? [facility] Comment: The eGFR was calculated using the CKD-EPI equation. As with all creatinine based estimates of kidney function, eGFR values calculated with the CKD-EPI equation are not accurate in patients with acute kidney failure, extremes of body mass or the acutely ill. http://[employer]/[facility] STIGLERnkf eGFR 95 >=60 mL/min/1. 73 m?? [facility] Comment: The eGFR was calculated using the CKD-EPI equation. As with all creatinine based estimates of kidney function, eGFR values calculated with the CKD-EPI equation are not accurate in patients with acute kidney failure, extremes of body mass or the acutely ill. http://[employer]/[facility]MCnkf Blood specimen (specimen) 11/15/2019 1:36 AM EDT 11/15/2019 2:02 AM EDT Narrative Resulting Agency Comment Spec In Lab Casey Singh MD CHEMISTRY ORDERABLES Performing Organization Address [facility] Co de Phone Number [facility] [place] [address] * Valproic Acid Level, Total (11/15/2019 1:36 AM EDT) Valproic Acid 47 mg/L [facility] Comment: Therapeutic Range: Anticonvulsant Therapy: ??50-100 mg/L Manic Episodes Associated with Bipolar Disorder: ??50-125 mg/L Blood specimen (specimen) 11/15/2019 1:36 AM EDT 11/15/2019 2:02 AM EDT Narrative Resulting Agency Comment Spec In Lab Casey Singh MD CHEMISTRY ORDERABLES Performing Organization Address [facility] Co de Phone Number [facility] [place] [address] * POCT Glucose (11/14/2019 5:06 PM EDT) Glucose, POC 83 65 - 199 mg/dL [facility] Comment: Supplemental ranges: <140 mg/dL before meals <180 mg/dL all other times of the day Blood specimen (specimen) 11/14/2019 5:06 PM EDT 11/14/2019 5:06 PM EDT Casey Singh MD POINT OF CARE TEST O RDERABLES Performing Organization Address [facility] Co de Phone Number [facility] [place] [address] * POCT Glucose (11/14/2019 3:15 PM EDT) Glucose, POC 100 65 - 199 mg/dL [facility] Comment: Supplemental ranges: <140 mg/dL before meals <180 mg/dL all other times of the day Blood specimen (specimen) 11/14/2019 3:15 PM EDT 11/14/2019 3:15 PM EDT Casey Singh MD POINT OF CARE TEST O RDERABLES Performing Organization Address City/[facility]/ZIP Co de Phone Number [facility] [place] [address] * POCT Glucose (11/14/2019 1:59 PM EDT) Glucose, POC 90 65 - 199 mg/dL [facility] Comment: Supplemental ranges: <140 mg/dL before meals <180 mg/dL all other times of the day Blood specimen (specimen) 11/14/2019 1:59 PM EDT 11/14/2019 1:59 PM EDT Casey Singh MD POINT OF CARE TEST O LORI Performing Organization Address [facility] Co de Phone Number [facility] [place] [address] * IR Embolization Intracranial (11/14/2019 1:39 PM EDT) Anatomical Region Laterality Modality Head X-Ray Angiograph y Impressions 11/22/2019 4:10 PM EDT 1. 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 ??[place] embolization of dural arteriovenous fistula with approximately [...] number below. ? Electronically signed by: TALI Cheney [facility] ([phone]), at 11/22/2019 4:10 PM Narrative 11/22/2019 4:10 [...] ??815.1 mGy MATERIALS: Micropuncture set, 6 Fr Jeffrey sheath, 5 Fr Impress Vert 125 cm selective catheter, 4 Fr Tempo Vertebral 100 cm selective catheter, 5 Fr Envoy MPC 100 cm guide catheter, 6 Fr Envoy MPC Angled 90 cm guide catheter, 2.7 Fr [place] 1.5 cm 165 cm microcatheter, 2.7 Fr [place] 3 cm 165 cm microcatheter, 1.5 Fr [place] 165 cm microcatheter.012 NT Synchro-10 200 cm microwire, .010 Asahi Chikai STR tip 200 cm microwire, .008 Hybrid STR 220 cm hydrophilic microwire, .035 J-tip 150 cm guidewire, .035 angle-tipped 150 cm hydrophilic guidewire, 6 Fr Angio-Seal VIP vascular closure device, [place] 34 - 1 vial, [place] 18 - 1 vial TECHNIQUE: The procedure [...] cerebral angiography was performed each position. An [place] microcatheter was directed to the left middle [...] directed to the external carotid artery. A [place] microcatheter was directed to the occipital artery [...] of the distal external carotid artery by [place] cast. The occipital branch of the left [...] 815.1 mGy MATERIALS: Micropuncture set, 6 Fr Jeffrey sheath, 5 Fr Impress Vert 125cm selective catheter, 4 Fr Tempo Vertebral 100 cm selective catheter, 5 FrEnvoy MPC 100 cm guide catheter, 6 Fr Envoy MPC Angled 90 cm guide catheter, 2.7Fr [place] 1.5 cm 165 cm microcatheter, 2.7 Fr [place] 3 cm 165 cmmicrocatheter, 1.5 Fr [place] 165 cm microcatheter.012 NT Synchro-10 200 cm microwire,.010 Asahi Ch[place]ai STR tip 200 cm microwire, .008 Hybrid STR 220 cmhydrophilic microwire, .035 J-tip 150 cm guidewire, .035 angle-tipped 150 cmhydrophilic guidewire, 6 Fr Angio-Seal VIP vascular closure device, [place] 34 - 1 vial,Gregory 18 - 1 [...] biplanecerebral angiography was performed each position. An [place] microcatheter wasdirected to the left middle meningeal artery using the microwire. Hand injectedbiplane microcatheter angiogram was performed. The catheter was placed moredistally in the parietal division of the left middle meningeal artery and handinjected biplane angiogram performed. From this position, [place] was infused using standard protocol withcontinuous fluoroscopic [...] then directed to the externalcarotid artery. A [place] microcatheter was directed to the occipital arteryusing [...] complications. The patient was transferred to [facility] in stable condition. FINDINGS: LEFT [...] of the posterior left convexity, CognardIII 2. [place] embolization of dural arteriovenous fistula with [id number]% obliteration and return of normal flow in [...] Electronically signed by: Hussain Christianson [facility]([phone]), at 11/22/2019 4:10 PM Hussain Christianson MD IMG IR ORDERABLES * (ABNORMAL) BLOOD GAS 2 ARTERIAL (11/14/2019 8:43 AM EDT) pH, Arterial 7.45 7.35 - 7.45 [facility] PCO2, Arterial 35 35 - 45 mmHg [facility] PO2, Arterial 315(H) 85 - 104 mmHg [facility] Bicarbonate, Arterial 23.9 20.0 - 26.0 mmol/L [facility] Base Excess, Arterial -0.3 -3.0 - 3.0 mmol/L [facility] Hgb Blood Gas 14.0 13.7 - 16.5 gm/dL [facility] Oxyhemoglobin, Arterial 98.8(H) 94.0 - 97.0 % [facility] Carboxyhemoglob in, Arterial 0.4 % [facility] Comment: Nonsmokers: 0.5-1.5% COHB Smokers: Variable, but usually less than 10% Toxic: 20-30% COHB Lethal: Greater than 60% COHB Methemoglobin, Arterial 0.3 <=1.5 % [facility] Na Whole Blood 138 135 - 145 mmol/L [facility] K Whole Blood 3.8 3.5 - 5.0 mmol/L [facility] Comment: Please note: Patients with WBC >100,000 may have falsely elevated Potassium levels. Contact the Clinical Chemistry Laboratory if there are any questions. ICa Whole Blood 1.16 1.15 - 1.33 mmol/L [facility] Comment: Note: ??Total bilirubin higher than 20 mg/dL may lead to falsely low ionized calcium. CL Whole Blood 107 98 - 107 mmol/L [facility] [facility] Gluc Whole Bld 113 65 - 199 mg/dL [facility] Comment:Diabetes: >=200 mg/d L plus symptoms. Lactate WB 1.2 0.5 - 2.2 mmol/L [facility] FIO2 Art 60 % [facility] PF Ratio Art 525 [facility] Temp Art 36.3 Celsius [facility] Blood specimen (specimen) 11/14/2019 8:43 AM EDT 11/14/2019 8:43 AM EDT Casey Singh MD POINT OF CARE TEST O RDERABLES [facility] [place] [address] * Differential, Automated (11/14/2019 2:05 AM EDT) Neutrophil % 48.4 % [facility] Neutrophil Absolute 2.80 1.70 - 6.10 x10(3)/[facility] Lymph % 34.5 % [facility] Lymphocytes Abs 2.0 0.9 - 3.2 x10(3)/[facility] Monocyte % 11.1 % [facility] Monocyte Abs 0.6 0.3 - 0.9 x10(3)/[facility] Eos % 4.8 % [facility] Eosinophils Abs 0.3 0.0 - 0.4 x10(3)/[facility] Basophil % 1.0 % [facility] Baso Absolute 0.1 0.0 - 0.1 x10(3)/[facility] Immature Gran % 0.20 % [facility] Comment: Immature granulocytes(IG's)percentage and absolute count will include metamyelocytes, myelocytes, and promyelocytes. Blood smears from CBCs yielding IG's will be scanned manually for concordance. If this scan disagrees with the automated IG or if promyelocytes are noted, a manual differential will be performed. Immature Gran Absolute 0.01 0.00 - 0.04 x10(3)/[facility] Blood specimen (specimen) 11/14/2019 2:05 AM EDT 11/14/2019 2:11 AM EDT Narrative Resulting Agency Comment Spec In Lab Tu Reyes MD HEMATOLOGY ORDERABLE S [facility] [place] [address] * (ABNORMAL) Hemogram (11/14/2019 2:05 AM EDT) White Blood Cell 5.8 4.0 - 9.5 x10(3)/[facility] LAB[facility]ATORY Red Blood Cell 4.21(L) 4.58 - 5.54 x10(6)/mc L [facility] Hemoglobin 12.9(L) 13.7 - 16.5 gm/dL [facility] Hematocrit 38.5(L) 40.5 - 48.5 % [facility] Mean Cell Volume 91.4 82.9 - 93.1 fL [facility] Mean Cell Hemoglobin 30.6 27.5 - 32.1 pg [facility] Mean Cell Hemoglobin Concentration 33.5 32.0 - 35.7 gm/dL [facility] Platelet 261 145 - 357 x10(3)/mc L [facility] RDW Standard Deviation 41.9 36.0 - 45.0 fL [facility] RDW coefficient of variation 12.6 11.4 - 13.8 % [facility] Mean Platelet Volume 10.0 7.6 - 12.9 fL [facility] NRBC% auto 0.0 % [facility] NRBC Absolute 0.000 0.000 - 0.000 x10(3)/mc L [facility] Blood specimen (specimen) 11/14/2019 2:05 AM EDT 11/14/2019 2:11 AM EDT Narrative Resulting Agency Comment Spec In Lab Tu Reyes MD HEMATOLOGY ORDERABLE S [facility] [place] [address] * Basic Metabolic Panel (non-fasting) (11/14/2019 2:05 AM EDT) Glucose 105 65 - 199 mg/dL [facility] Comment:Diabetes: >=200 mg/d L plus symptoms Blood Urea Nitrogen 14 10 - 20 mg/dL [facility] Creatinine 1.03 0.80 - 1.50 mg/dL [facility] Sodium 140 135 - 145 mmol/L [facility] Potassium 4.2 3.5 - 5.0 mmol/L [facility] Comment: Please note: ??Patients with WBC >100,000 may have falsely elevated Potassium levels. ??For accurate Potassium quantification in these patients send serum separator tube (gold top) for subsequent determinations. ??Contact the Clinical Chemistry Laboratory if there are any questions. Chloride 103 98 - 107 mmol/L [facility] Carbon Dioxide 25 22 - 31 mmol/L [facility] Anion Gap 12 5 - 15 mmol/L [facility] Calcium 9.2 8.5 - 10.5 mg/dL [facility] Est Glomerular Filtration Rate 72 >=60 mL/min/1. 73 m?? [facility] Comment: The eGFR was calculated using the CKD-EPI equation. As with all creatinine based estimates of kidney function, eGFR values calculated with the CKD-EPI equation are not accurate in patients with acute kidney failure, extremes of body mass or the acutely ill. [email or web address]/[facility]LERnkf eGFR 83 >=60 mL/min/1. 73 m?? [facility] Comment: The eGFR was calculated using the CKD-EPI equation. As with all creatinine based estimates of kidney function, eGFR values calculated with the CKD-EPI equation are not accurate in patients with acute kidney failure, extremes of body mass or the acutely ill. [email or web address]/[facility]ERnk[facility] Blood specimen (specimen) 11/14/2019 2:05 AM EDT 11/14/2019 2:11 AM EDT Narrative Resulting Agency Comment Spec In Lab Casey Singh MD CHEMISTRY ORDERABLES Performing Organization Address [facility] Co de Phone Number [facility] [place] [address] * Valproic Acid Level, Total (11/14/2019 2:05 AM EDT) Valproic Acid 79 mg/L [facility] Comment: Therapeutic Range: Anticonvulsant Therapy: ??50-100 mg/L Manic Episodes Associated with Bipolar Disorder: ??50-125 mg/L Blood specimen (specimen) 11/14/2019 2:05 AM EDT 11/14/2019 2:11 AM EDT Narrative Resulting Agency Comment Spec In Lab Casey Singh MD CHEMISTRY ORDERABLES Performing Organization Address [facility]/ZIP Co de Phone Number [facility] [place] [address] * POCT Glucose (11/13/2019 8:56 PM EDT) Glucose, POC 133 65 - 199 mg/dL [facility] Comment: Supplemental ranges: <140 mg/dL before meals <180 mg/dL all other times of the day Blood specimen (specimen) 11/13/2019 8:56 PM EDT 11/13/2019 8:56 PM EDT Casey Singh MD POINT OF CARE TEST O RDCATRACHO [facility] [place] [address] * POCT Glucose (11/13/2019 5:07 PM EDT) Glucose, POC 111 65 - 199 mg/dL [facility] Comment: Supplemental ranges: <140 mg/dL before meals <180 mg/dL all other times of the day Blood specimen (specimen) 11/13/2019 5:07 PM EDT 11/13/2019 5:07 PM EDT Casey Singh MD POINT OF CARE TEST O LORI Performing Organization Address [facility]/ZIP Co de Phone Number [facility] [place] [address] * POCT Glucose (11/13/2019 11:56 AM EDT) Glucose, POC 127 65 - 199 mg/dL [facility] Comment: Supplemental ranges: <140 mg/dL before meals <180 mg/dL all other times of the day Blood specimen (specimen) 11/13/2019 11:56 AM EDT 11/13/2019 11:56 AM EDT Casey Singh MD POINT OF CARE TEST O LORI Performing Organization Address City/[facility]/ZIP Co de Phone Number [facility] [place] [address] * POCT Glucose (11/13/2019 7:48 AM EDT) Glucose, POC 101 65 - 199 mg/dL [facility] Comment: Supplemental ranges: <140 mg/dL before meals <180 mg/dL all other times of the day Blood specimen (specimen) 11/13/2019 7:48 AM EDT 11/13/2019 7:48 AM EDT Casey Singh MD POINT OF CARE TEST O RDERABLES Performing Organization Address City/[facility]/ZIP Co de Phone Number [facility] [place] [address] * Differential, Automated (11/13/2019 2:03 AM EDT) Neutrophil % 49.7 % [facility] Neutrophil Absolute 3.15 1.70 - 6.10 x10(3)/[facility] Lymph % 33.8 % [facility] Lymphocytes Abs 2.1 0.9 - 3.2 x10(3)/[facility] Monocyte % 9.5 % [facility] Monocyte Abs 0.6 0.3 - 0.9 x10(3)/[facility] Eos % 5.8 % [facility] Eosinophils Abs 0.4 0.0 - 0.4 x10(3)/[facility] Basophil % 0.9 % [facility] Baso Absolute 0.1 0.0 - 0.1 x10(3)/[facility] Immature Gran % 0.30 % [facility] Comment: Immature granulocytes(IG's)percentage and absolute count will include metamyelocytes, myelocytes, and promyelocytes. Blood smears from CBCs yielding IG's will be scanned manually for concordance. If this scan disagrees with the automated IG or if promyelocytes are noted, a manual differential will be performed. Immature Gran Absolute 0.02 0.00 - 0.04 x10(3)/[facility] Blood specimen (specimen) 11/13/2019 2:03 AM EDT 11/13/2019 2:15 AM EDT Narrative Resulting Agency Comment Spec In Lab Tu Reyes MD HEMATOLOGY ORDERABLE S Performing Organization Address City/[facility]/ZIP Co de Phone Number [facility] [place] [address] * (ABNORMAL) Hemogram (11/13/2019 2:03 AM EDT) Pathologist [facility] [place] White Blood Cell 6.3 4.0 - 9.5 x10(3)/ L [facility] Red Blood Cell 4.26(L) 4.58 - 5.54 x10(6)/mc L [facility] Hemoglobin 12.9(L) 13.7 - 16.5 gm/dL [facility] Hematocrit 39.1(L) 40.5 - 48.5 % [facility] Mean Cell Volume 91.8 82.9 - 93.1 fL [facility] Mean Cell Hemoglobin 30.3 27.5 - 32.1 pg [facility] Mean Cell Hemoglobin Concentration 33.0 32.0 - 35.7 gm/dL [facility] Platelet 250 145 - 357 x10(3)/[facility] LABORATORY RDW Standard Deviation 43.2 36.0 - 45.0 [facility] LABORATORY RDW coefficient of variation 12.8 11.4 - 13.8 % [facility] Mean Platelet Volume 10.2 7.6 - 12.9 [facility] LABORATORY NRBC% auto 0.0 % [facility] NRBC Absolute 0.000 0.000 - 0.000 x10(3)/[facility] LABORATORY Blood specimen (specimen) 11/13/2019 2:03 AM EDT 11/13/2019 2:15 AM EDT Narrative Resulting Agency Comment Spec In Lab Tu Reyes MD HEMATOLOGY ORDERABLE S [facility] [place] [address] * Basic Metabolic Panel (non-fasting) (11/13/2019 2:03 AM EDT) [facility] Glucose 104 65 - 199 mg/dL [facility] Comment:Diabetes: >=200 mg/d L plus symptoms Blood Urea Nitrogen 15 10 - 20 mg/dL [facility] Creatinine 0.90 0.80 - 1.50 mg/dL [facility] Sodium 137 135 - 145 mmol/L [facility] Potassium 4.1 3.5 - 5.0 mmol/L [facility] Comment: Please note: ??Patients with WBC >100,000 may have falsely elevated Potassium levels. ??For accurate Potassium quantification in these patients send serum separator tube (gold top) for subsequent determinations. ??Contact the Clinical Chemistry Laboratory if there are any questions. Chloride 103 98 - 107 mmol/L [facility] Carbon Dioxide 24 22 - 31 mmol/L [facility] Anion Gap 10 5 - 15 mmol/L [facility] Calcium 9.1 8.5 - 10.5 mg/dL [facility] Est Glomerular Filtration Rate 84 >=60 mL/min/1. 73 m?? [facility] Comment: The eGFR was calculated using the CKD-EPI equation. As with all creatinine based estimates of kidney function, eGFR values calculated with the CKD-EPI equation are not accurate in patients with acute kidney failure, extremes of body mass or the acutely ill. [email or web address] eGFR 98 >=60 mL/min/1. 73 m?? [facility] Comment: The eGFR was calculated using the CKD-EPI equation. As with all creatinine based estimates of kidney function, eGFR values calculated with the CKD-EPI equation are not accurate in patients with acute kidney failure, extremes of body mass or the acutely ill. [email or web address] Blood specimen (specimen) 11/13/2019 2:03 AM EDT 11/13/2019 2:15 AM EDT Narrative Resulting Agency Comment Spec In Lab Casey Singh MD CHEMISTRY ORDERABLES [facility] [place] [address] * Valproic Acid Level, Total (11/13/2019 2:03 AM EDT) Valproic Acid 55 mg/L [facility] Comment: Therapeutic Range: Anticonvulsant Therapy: ??50-100 mg/L Manic Episodes Associated with Bipolar Disorder: ??50-125 mg/L Blood specimen (specimen) 11/13/2019 2:03 AM EDT 11/13/2019 2:15 AM EDT Narrative Resulting Agency Comment Spec In Lab Casey Singh MD CHEMISTRY ORDERABLES Performing Organization Address City/[facility]/ZIP Co de Phone Number [facility] [place] [address] * POCT Glucose (11/12/2019 8:32 PM EDT) Glucose, POC 121 65 - 199 mg/dL [facility] Comment: Supplemental ranges: <140 mg/dL before meals <180 mg/dL all other times of the day Blood specimen (specimen) 11/12/2019 8:32 PM EDT 11/12/2019 8:32 PM EDT Casey Singh MD POINT OF CARE TEST O RDERABLES Performing Organization Address [facility] Co de Phone Number [facility] [place] [address] * POCT Glucose (11/12/2019 6:14 PM EDT) Glucose, POC 131 65 - 199 mg/dL [facility] Comment: Supplemental ranges: <140 mg/dL before meals <180 mg/dL all other times of the day Blood specimen (specimen) 11/12/2019 6:14 PM EDT 11/12/2019 6:14 PM EDT Casey Singh MD POINT OF CARE TEST O RDERABLES Performing Organization Address City/[facility] Co de Phone Number [facility] [place] [address] * POCT Glucose (11/12/2019 12:02 PM EDT) Glucose, POC 130 65 - 199 mg/dL [facility] Comment: Supplemental ranges: <140 mg/dL before meals <180 mg/dL all other times of the day Blood specimen (specimen) 11/12/2019 12:02 PM EDT 11/12/2019 12:02 PM EDT Casey Singh MD POINT OF CARE TEST O LORI Performing Organization Address [facility] Co de Phone Number [facility] [place] [address] * POCT Glucose (11/12/2019 7:29 AM EDT) Glucose, POC 123 65 - 199 mg/dL [facility] Comment: Supplemental ranges: <140 mg/dL before meals <180 mg/dL all other times of the day Blood specimen (specimen) 11/12/2019 7:29 AM EDT 11/12/2019 7:29 AM EDT Casey Singh MD POINT OF CARE TEST O LORI Performing Organization Address [facility] Co de Phone Number [facility] [place] [address] * (ABNORMAL) Urinalysis with reflex Culture (11/12/2019 2:11 AM EDT) Glucose, Urine Dipstick Negative Negative mg/dL [facility] Protein, Urine Dipstick Negative Negative mg/dL [facility] Bilirubin, Urine Dipstick Negative Negative mg/dL [facility] Comment: Clinical correlation required for positive Urine Bilirubin results as false positive may occur with some drugs and drug related products. If a false positive is suspected a serum total bilirubin should be considered if clinically indicated. Urobilinogen, Urine Dipstick Normal Normal mg/dL [facility] pH, Urn (dipstick) 6.5 5.0 - 8.0 [facility] Blood, Urine Dipstick Negative Negative mg/dL [facility] Ketone, Urine Dipstick Trace(A) Negative mg/dL [facility] Nitrite, Urine Dipstick Negative Negative [facility] Leukocytes, Urine Dipstick Negative Negative [facility] Appearance, Urine Dipstick Clear Clear [facility] Specific [place] Urine Automated 1.019 1.006 - 1.030 [facility] Color, Urine Dipstick Yellow Yellow [facility] Reflex to Culture No [facility] Urine specimen (specimen) 11/12/2019 2:11 AM EDT 11/12/2019 2:27 AM EDT Narrative Resulting Agency Comment Spec In Lab Casey Singh MD URINE ORDERABLES [facility] [place] [address] * Differential, Automated (11/12/2019 1:33 AM EDT) Neutrophil % 56.2 % [facility] Neutrophil Absolute 3.59 1.70 - 6.10 x10(3)/[facility] Lymph % 29.4 % [facility] Lymphocytes Abs 1.9 0.9 - 3.2 x10(3)/[facility] Monocyte % 10.5 % [facility] Monocyte Abs 0.7 0.3 - 0.9 x10(3)/[facility] Eos % 2.7 % [facility] Eosinophils Abs 0.2 0.0 - 0.4 x10(3)/[facility] Basophil % 0.9 % [facility] Baso Absolute 0.1 0.0 - 0.1 x10(3)/[facility] Immature Gran % 0.30 % [facility] Comment: Immature granulocytes(IG's)percentage and absolute count will include metamyelocytes, myelocytes, and promyelocytes. Blood smears from CBCs yielding IG's will be scanned manually for concordance. If this scan disagrees with the automated IG or if promyelocytes are noted, a manual differential will be performed. Immature Gran Absolute 0.02 0.00 - 0.04 x10(3)/[facility] Blood specimen (specimen) 11/12/2019 1:33 AM EDT 11/12/2019 1:49 AM EDT Narrative Resulting Agency Comment Spec In Lab Tu Reyes MD HEMATOLOGY ORDERABLE S [facility] [place] [address] * (ABNORMAL) Hemogram (11/12/2019 1:33 AM EDT) White Blood Cell 6.4 4.0 - 9.5 x10(3)/[facility] LABORATORY Red Blood Cell 4.19(L) 4.58 - 5.54 x10(6)/[facility]ATORY Hemoglobin 12.9(L) 13.7 - 16.5 gm/dL [facility] Hematocrit 39.3(L) 40.5 - 48.5 % [facility] Mean Cell Volume 93.8(H) 82.9 - 93.1 [facility] LAB[facility]ORY Mean Cell Hemoglobin 30.8 27.5 - 32.1 pg [facility] Mean Cell Hemoglobin Concentration 32.8 32.0 - 35.7 gm/dL [facility] Platelet 219 145 - 357 x10(3)/ L [facility] RDW Standard Deviation 44.3 36.0 - 45.0 [facility] RDW coefficient of variation 13.0 11.4 - 13.8 % [facility] Mean Platelet Volume 9.9 7.6 - 12.9 [facility]ORY NRBC% auto 0.0 % [facility] NRBC Absolute 0.000 0.000 - 0.000 x10(3)/[facility]ORY Blood specimen (specimen) 11/12/2019 1:33 AM EDT 11/12/2019 1:49 AM EDT Narrative Resulting Agency Comment Spec In Lab Tu Reyes MD HEMATOLOGY ORDERABLE S [facility] [place] [address] * Basic Metabolic Panel (non-fasting) (11/12/2019 1:33 AM EDT) Glucose 134 65 - 199 mg/dL [facility] Comment:Diabetes: >=200 mg/d L plus symptoms Blood Urea Nitrogen 11 10 - 20 mg/dL [facility] Creatinine 0.98 0.80 - 1.50 mg/dL [facility] Sodium 139 135 - 145 mmol/L [facility] Potassium 4.1 3.5 - 5.0 mmol/L [facility] Comment: Please note: ??Patients with WBC >100,000 may have falsely elevated Potassium levels. ??For accurate Potassium quantification in these patients send serum separator tube (gold top) for subsequent determinations. ??Contact the Clinical Chemistry Laboratory if there are any questions. Chloride 102 98 - 107 mmol/L [facility] Carbon Dioxide 25 22 - 31 mmol/L [facility] Anion Gap 12 5 - 15 mmol/L [facility] Calcium 9.2 8.5 - 10.5 mg/dL [facility] Est Glomerular Filtration Rate 76 >=60 mL/min/1. 73 m?? [facility] Comment: The eGFR was calculated using the CKD-EPI equation. As with all creatinine based estimates of kidney function, eGFR values calculated with the CKD-EPI equation are not accurate in patients with acute kidney failure, extremes of body mass or the acutely ill. [email or web address] eGFR 88 >=60 mL/min/1. 73 m?? [facility] Comment: The eGFR was calculated using the CKD-EPI equation. As with all creatinine based estimates of kidney function, eGFR values calculated with the CKD-EPI equation are not accurate in patients with acute kidney failure, extremes of body mass or the acutely ill. [email or web address] Blood specimen (specimen) 11/12/2019 1:33 AM EDT 11/12/2019 1:49 AM EDT Narrative Resulting Agency Comment Spec In Lab Casey Singh MD CHEMISTRY ORDERABLES Performing Organization Address [facility] Co de Phone Number [facility] [place] [address] * Valproic Acid Level, Total (11/12/2019 1:33 AM EDT) Valproic Acid 22 mg/L [facility] Comment: Therapeutic Range: Anticonvulsant Therapy: ??50-100 mg/L Manic Episodes Associated with Bipolar Disorder: ??50-125 mg/L Blood specimen (specimen) 11/12/2019 1:33 AM EDT 11/12/2019 1:49 AM EDT Narrative Resulting Agency Comment Spec In Lab Casey Singh MD CHEMISTRY ORDERABLES Performing Organization Address [facility] Co de Phone Number [facility] [place] [address] * Hepatic Function Panel (11/12/2019 1:33 AM EDT) Protein, Total 6.3 6.1 - 8.0 gm/dL [facility] Albumin 3.6 3.2 - 5.2 gm/dL [facility] Aspartate Aminotransferase 21 0 - 39 unit/L [facility] Alanine Aminotransferase 18 0 - 55 unit/L [facility] Alkaline Phosphatase 48 40 - 130 unit/L [facility] Bilirubin, Total 0.5 0.2 - 1.3 mg/dL [facility] Bilirubin, Direct 0.1 0.0 - 0.3 mg/dL [facility] Blood specimen (specimen) 11/12/2019 1:33 AM EDT 11/12/2019 1:49 AM EDT Narrative Resulting Agency Comment Spec In Lab Casey Singh MD CHEMISTRY ORDERABLES Performing Organization Address [facility] Co de Phone Number [facility] [place] [address] * (ABNORMAL) Ammonia (11/12/2019 1:33 AM EDT) Ammonia 12(L) 16 - 60 mcmol/L [facility] Blood specimen (specimen) 11/12/2019 1:33 AM EDT 11/12/2019 1:45 AM EDT Narrative Resulting Agency Comment Spec In Lab Casey Singh MD CHEMISTRY ORDERABLES Performing Organization Address [facility] de Phone Number [facility] [place] [address] * CT Head wo Contrast (Generic) (11/11/2019 [...] Glucose, POC 93 65 - 199 mg/dL [facility] Comment: Supplemental ranges: <140 mg/dL before meals <180 mg/dL all other times of the day Blood specimen (specimen) 11/11/2019 5:06 PM EDT 11/11/2019 5:06 PM EDT Casey Singh MD POINT OF CARE TEST O RDERABLES [facility] [place] [address] * POCT Glucose (11/11/2019 11:44 AM EDT) Glucose, POC 178 65 - 199 mg/dL [facility] Comment: Supplemental ranges: <140 mg/dL before meals <180 mg/dL all other times of the day Blood specimen (specimen) 11/11/2019 11:44 AM EDT 11/11/2019 11:44 AM EDT Casey Singh MD POINT OF CARE TEST O RDERAPAMELA Performing Organization Address City/[facility] Co de Phone Number [facility] [place] [address] * POCT Glucose (11/11/2019 8:49 AM EDT) Pathologist [facility] [place] Glucose, POC 139 65 - 199 mg/dL [facility] Comment: Supplemental ranges: <140 mg/dL before meals <180 mg/dL all other times of the day Blood specimen (specimen) 11/11/2019 8:49 AM EDT 11/11/2019 8:49 AM EDT Casey Singh MD POINT OF CARE TEST O LORI Performing Organization Address [facility]/ZIP Co de Phone Number [facility] [place] [address] * Differential, Automated (11/11/2019 2:07 AM EDT) [facility] Neutrophil % 63.6 % [facility] Neutrophil Absolute 4.64 1.70 - 6.10 x10(3)/[facility] LABORATORY Lymph % 21.8 % [facility] Lymphocytes Abs 1.6 0.9 - 3.2 x10(3)/[facility] LABORATORY Monocyte % 9.6 % [facility] Monocyte Abs 0.7 0.3 - 0.9 x10(3)/[facility] LABORATORY Eos % 3.6 % [facility] Eosinophils Abs 0.3 0.0 - 0.4 x10(3)/[facility] LABORATORY Basophil % 1.1 % [facility] Baso Absolute 0.1 0.0 - 0.1 x10(3)/[facility] LABORATORY Immature Gran % 0.30 % [facility] Comment: Immature granulocytes(IG's)percentage and absolute count will include metamyelocytes, myelocytes, and promyelocytes. Blood smears from CBCs yielding IG's will be scanned manually for concordance. If this scan disagrees with the automated IG or if promyelocytes are noted, a manual differential will be performed. Immature Gran Absolute 0.02 0.00 - 0.04 x10(3)/[facility] LABORATORY Blood specimen (specimen) 11/11/2019 2:07 AM EDT 11/11/2019 2:16 AM EDT Narrative Resulting Agency Comment Spec In Lab Tu Reyes MD HEMATOLOGY ORDERABLE S [facility] [place] [address] * (ABNORMAL) Hemogram (11/11/2019 2:07 AM EDT) White Blood Cell 7.3 4.0 - 9.5 x10(3)/[facility] LABORATORY Red Blood Cell 4.25(L) 4.58 - 5.54 x10(6)/[facility] LABORATORY Hemoglobin 13.0(L) 13.7 - 16.5 gm/dL [facility] Hematocrit 40.3(L) 40.5 - 48.5 % [facility] Mean Cell Volume 94.8(H) 82.9 - 93.1 [facility] LABORATORY Mean Cell Hemoglobin 30.6 27.5 - 32.1 pg [facility] Mean Cell Hemoglobin Concentration 32.3 32.0 - 35.7 gm/dL [facility] Platelet 228 145 - 357 x10(3)/[facility] LABORATORY RDW Standard Deviation 44.6 36.0 - 45.0 [facility] LABORATORY RDW coefficient of variation 13.0 11.4 - 13.8 % [facility] Mean Platelet Volume 10.1 7.6 - 12.9 fL [facility] NRBC% auto 0.0 % [facility] NRBC Absolute 0.000 0.000 - 0.000 x10(3)/mc L [facility] Blood specimen (specimen) 11/11/2019 2:07 AM EDT 11/11/2019 2:16 AM EDT Narrative Resulting Agency Comment Spec In Lab Tu Reyes MD HEMATOLOGY ORDERABLE S [facility] [place] [address] * Basic Metabolic Panel (non-fasting) (11/11/2019 2:07 AM EDT) Glucose 150 65 - 199 mg/dL [facility] Comment:Diabetes: >=200 mg/d L plus symptoms Blood Urea Nitrogen 12 10 - 20 mg/dL [facility] Creatinine 1.17 0.80 - 1.50 mg/dL [facility] Sodium 141 135 - 145 mmol/L [facility] Potassium 4.6 3.5 - 5.0 mmol/L [facility] Comment: Please note: ??Patients with WBC >100,000 may have falsely elevated Potassium levels. ??For accurate Potassium quantification in these patients send serum separator tube (gold top) for subsequent determinations. ??Contact the Clinical Chemistry Laboratory if there are any questions. Chloride 102 98 - 107 mmol/L [facility] Carbon Dioxide 29 22 - 31 mmol/L [facility] Anion Gap 10 5 - 15 mmol/L [facility] Calcium 8.9 8.5 - 10.5 mg/dL [facility] Est Glomerular Filtration Rate 61 >=60 mL/min/1. 73 m?? [facility] Comment: The eGFR was calculated using the CKD-EPI equation. As with all creatinine based estimates of kidney function, eGFR values calculated with the CKD-EPI equation are not accurate in patients with acute kidney failure, extremes of body mass or the acutely ill. [email or web address] eGFR 71 >=60 mL/min/1. 73 m?? [facility] Comment: The eGFR was calculated using the CKD-EPI equation. As with all creatinine based estimates of kidney function, eGFR values calculated with the CKD-EPI equation are not accurate in patients with acute kidney failure, extremes of body mass or the acutely ill. [email or web address] Blood specimen (specimen) 11/11/2019 2:07 AM EDT 11/11/2019 2:16 AM EDT Narrative Resulting Agency Comment Spec In Lab Casey Singh MD CHEMISTRY ORDERABLES Performing Organization Address [facility] Co de Phone Number [facility] [place] [id number] * POCT Glucose (11/10/2019 10:12 PM EDT) Glucose, POC 161 65 - 199 mg/dL [facility] Comment: Supplemental ranges: <140 mg/dL before meals <180 mg/dL all other times of the day Blood specimen (specimen) 11/10/2019 10:12 PM EDT 11/10/2019 10:12 PM EDT Casey Singh MD POINT OF CARE TEST O RDCATRACHO Performing Organization Address [facility]/ZIP Co de Phone Number [facility] [place] [address] * POCT Glucose (11/10/2019 5:04 PM EDT) Glucose, POC 100 65 - 199 mg/dL [facility] Comment: Supplemental ranges: <140 mg/dL before meals <180 mg/dL all other times of the day Blood specimen (specimen) 11/10/2019 5:04 PM EDT 11/10/2019 5:04 PM EDT Casey Singh MD POINT OF CARE TEST O RDERABLES Performing Organization Address [facility]/ZIP Co de Phone Number [facility] [place] [address] * POCT Glucose (11/10/2019 2:31 PM EDT) Glucose, POC 93 65 - 199 mg/dL [facility] Comment: Supplemental ranges: <140 mg/dL before meals <180 mg/dL all other times of the day Blood specimen (specimen) 11/10/2019 2:31 PM EDT 11/10/2019 2:31 PM EDT Casey Singh MD POINT OF CARE TEST O RDERABLES Performing Organization Address [facility] Co de Phone Number [facility] [place] [address] * POCT Glucose (11/10/2019 11:30 AM EDT) Glucose, POC 93 65 - 199 mg/dL [facility] Comment: Supplemental ranges: <140 mg/dL before meals <180 mg/dL all other times of the day Blood specimen (specimen) 11/10/2019 11:30 AM EDT 11/10/2019 11:30 AM EDT Casey Singh MD POINT OF CARE TEST O RDERAPAMELA Performing Organization Address [facility] de Phone Number [facility] [place] [address] * POCT Glucose (11/10/2019 10:59 AM EDT) Glucose, POC 105 65 - 199 mg/dL [facility] Comment: Supplemental ranges: <140 mg/dL before meals <180 mg/dL all other times of the day Blood specimen (specimen) 11/10/2019 10:59 AM EDT 11/10/2019 10:59 AM EDT Casey Singh MD POINT OF CARE TEST O RDERABLES [facility] [place] [address] * POCT Glucose (11/10/2019 8:12 AM EDT) Glucose, POC 139 65 - 199 mg/dL [facility] Comment: Supplemental ranges: <140 mg/dL before meals <180 mg/dL all other times of the day Blood specimen (specimen) 11/10/2019 8:12 AM EDT 11/10/2019 8:12 AM EDT Casey Singh MD POINT [place] [address] * Differential, Automated (11/10/2019 1:27 AM EDT) [facility] Neutrophil % 54.6 % [facility] Neutrophil Absolute 3.07 1.70 - 6.10 x10(3)/[facility] LABORATORY Lymph % 28.6 % [facility] Lymphocytes Abs 1.6 0.9 - 3.2 x10(3)/[facility] LABORATORY Monocyte % 10.0 % [facility] Monocyte Abs 0.6 0.3 - 0.9 x10(3)/[facility] LABORATORY Eos % 5.0 % [facility] Eosinophils Abs 0.3 0.0 - 0.4 x10(3)/[facility] LABORATORY Basophil % 1.6 % [facility] Baso Absolute 0.1 0.0 - 0.1 x10(3)/[facility] LABORATORY Immature Gran % 0.20 % [facility] Comment: Immature granulocytes(IG's)percentage and absolute count will include metamyelocytes, myelocytes, and promyelocytes. Blood smears from CBCs yielding IG's will be scanned manually for concordance. If this scan disagrees with the automated IG or if promyelocytes are noted, a manual differential will be performed. Immature Gran Absolute 0.01 0.00 - 0.04 x10(3)/mcL [facility] Blood specimen (specimen) 11/10/2019 1:27 AM EDT 11/10/2019 1:41 AM EDT Narrative Resulting Agency Comment Spec In Lab Maty Mcfadden SURVEY WORKER HEMATOLOGY ORDERABLE S [facility] [place] [address] * (ABNORMAL) Hemogram (11/10/2019 1:27 AM EDT) White Blood Cell 5.6 4.0 - 9.5 x10(3)/[facility] LABORATORY Red Blood Cell 4.51(L) 4.58 - 5.54 x10(6)/[facility] LABORATORY Hemoglobin 13.6(L) 13.7 - 16.5 gm/dL [facility] Hematocrit 41.6 40.5 - 48.5 % [facility] Mean Cell Volume 92.2 82.9 - 93.1 [facility] LABORATORY Mean Cell Hemoglobin 30.2 27.5 - 32.1 pg [facility] Mean Cell Hemoglobin Concentration 32.7 32.0 - 35.7 gm/dL [facility] Platelet 232 145 - 357 x10(3)/[facility] LABORATORY RDW Standard Deviation 43.6 36.0 - 45.0 [facility] LABORATORY RDW coefficient of variation 12.8 11.4 - 13.8 % [facility] Mean Platelet Volume 10.2 7.6 - 12.9 [facility] LABORATORY NRBC% auto 0.0 % [facility] NRBC Absolute 0.000 0.000 - 0.000 x10(3)/[facility] LABORATORY Blood specimen (specimen) 11/10/2019 1:27 AM EDT 11/10/2019 1:41 AM EDT Narrative Resulting Agency Comment Spec In Lab Maty Mcfadden [employer] WORK[employer] HEMATOLOGY ORDERABLE S [facility] [place] [address] * Basic Metabolic Panel (non-fasting) (11/10/2019 1:27 AM EDT) Glucose 121 65 - 199 mg/dL [facility] Comment:Diabetes: >=200 mg/d L plus symptoms Blood Urea Nitrogen 13 10 - 20 mg/dL [facility] Creatinine 0.97 0.80 - 1.50 mg/dL [facility] Sodium 140 135 - 145 mmol/L [facility] Potassium 3.9 3.5 - 5.0 mmol/L [facility] Comment: Please note: ??Patients with WBC >100,000 may have falsely elevated Potassium levels. ??For accurate Potassium quantification in these patients send serum separator tube (gold top) for subsequent determinations. ??Contact the Clinical Chemistry Laboratory if there are any questions. Chloride 103 98 - 107 mmol/L [facility] Carbon Dioxide 27 22 - 31 mmol/L [facility] Anion Gap 10 5 - 15 mmol/L [facility] Calcium 9.2 8.5 - 10.5 mg/dL [facility] Est Glomerular Filtration Rate 77 >=60 mL/min/1. 73 m?? [facility] Comment: The eGFR was calculated using the CKD-EPI equation. As with all creatinine based estimates of kidney function, eGFR values calculated with the CKD-EPI equation are not accurate in patients with acute kidney failure, extremes of body mass or the acutely ill. [email or web address] eGFR 89 >=60 mL/min/1. 73 m?? [facility] Comment: The eGFR was calculated using the CKD-EPI equation. As with all creatinine based estimates of kidney function, eGFR values calculated with the CKD-EPI equation are not accurate in patients with acute kidney failure, extremes of body mass or the acutely ill. [email or web address] Blood specimen (specimen) 11/10/2019 1:27 AM EDT 11/10/2019 1:41 AM EDT Narrative Resulting Agency Comment Spec In Lab Casey Singh MD CHEMISTRY ORDERABLES Performing Organization Address City/[facility]/ZIP Co de Phone Number [facility] [place] [address] * POCT Glucose (11/09/2019 10:18 PM EDT) Glucose, POC 161 65 - 199 mg/dL [facility] Comment: Supplemental ranges: <140 mg/dL before meals <180 mg/dL all other times of the day Blood specimen (specimen) 11/09/2019 10:18 PM EDT 11/09/2019 10:18 PM EDT Casey Singh MD POINT OF CARE TEST O RDERABLES Performing Organization Address [facility]/ZIP Co de Phone Number [facility] [place] [address] * POCT Glucose (11/09/2019 4:17 PM EDT) Glucose, POC 77 65 - 199 mg/dL [facility] Comment: Supplemental ranges: <140 mg/dL before meals <180 mg/dL all other times of the day Blood specimen (specimen) 11/09/2019 4:17 PM EDT 11/09/2019 4:17 PM EDT Casey Singh MD POINT OF CARE TEST O LORI Performing Organization Address [facility]/ZIP Co de Phone Number [facility] [place] [address] * ABORH Recheck Status (11/09/2019 12:21 PM EDT) ABORH Type Recheck Completed [facility] Blood specimen (specimen) 11/09/2019 12:21 PM EDT 11/09/2019 12:49 PM EDT Narrative Resulting Agency Comment Spec In Lab Charlene Louis MD BLOOD BANK LAB ORDER EMILIANO Performing Organization Address City/[facility]/ZIP Co de Phone Number [facility] [place] [address] * Antibody screen (11/09/2019 12:21 PM EDT) Ab Screen Interp Negative [facility] Expires at [id number] on: 11/12/2019 [facility] Blood specimen (specimen) 11/09/2019 12:21 PM EDT 11/09/2019 12:49 PM EDT Narrative Resulting Agency Comment Spec In Lab Charlene Louis MD BLOOD BANK LAB ORDER EMILIANO Performing Organization Address City/[facility]/ZIP Co de Phone Number [facility] [place] [address] * ABO/Rh Typing (11/09/2019 12:21 PM EDT) ABORH Type B Pos [facility] Blood specimen (specimen) 11/09/2019 12:21 PM EDT 11/09/2019 12:49 PM EDT Narrative Resulting Agency Comment Spec In Lab Charlene Louis MD BLOOD BANK LAB ORDER EMILIANO Performing Organization Address City/[facility] Co de Phone Number [facility] [place] [address] * APTT (11/09/2019 12:21 PM EDT) Partial Thromboplastin Time 30 25 - 37 sec [facility] Comment: The PTT is NOT appropriate for heparin monitoring. Use the Anti-Xa level for heparin monitoring (HEP UFH) or LMWH monitoring (HEP LMW). A PTT less than 37 seconds generally indicates adequate hemostasis. Blood specimen (specimen) 11/09/2019 12:21 PM EDT 11/09/2019 12:21 PM EDT Narrative Resulting Agency Comment Spec In Lab Casey Singh MD HEMATOLOGY ORDERABLE S Performing Organization Address [facility] Co de Phone Number [facility] [place] [address] * Prothrombin Time (11/09/2019 12:21 PM EDT) [facility] Prothrombin Time 11.7 9.4 - 12.5 sec [facility] International Normalization Ratio 1.0 [facility] Comment: An INR <2.0 indicates [...] MD HEMATOLOGY ORDERABLE S Performing Organization Address [facility] de Phone Number [facility] [place] [address] * POCT Glucose (11/09/2019 11:27 AM EDT) [facility] Glucose, POC 99 65 - 199 mg/dL [facility] Comment: Supplemental ranges: <140 mg/dL before meals <180 mg/dL all other times of the day Blood specimen (specimen) 11/09/2019 11:27 AM EDT 11/09/2019 11:27 AM EDT Casey Singh MD POINT OF CARE TEST O RDERABLES Performing Organization Address [facility] Co de Phone Number [facility] [place] [address] * POCT Glucose (11/09/2019 7:52 AM EDT) Glucose, POC 119 65 - 199 mg/dL [facility] Comment: Supplemental ranges: <140 mg/dL before meals <180 mg/dL all other times of the day Blood specimen (specimen) 11/09/2019 7:52 AM EDT 11/09/2019 7:52 AM EDT Casey Singh MD POINT OF CARE TEST O LORI Performing Organization Address [facility] Co de Phone Number [facility] [place] [address] * POCT Glucose (11/09/2019 7:24 AM EDT) Glucose, POC 112 65 - 199 mg/dL [facility] Comment: Supplemental ranges: <140 mg/dL before meals <180 mg/dL all other times of the day Blood specimen (specimen) 11/09/2019 7:24 AM EDT 11/09/2019 7:24 AM EDT Casey Singh MD POINT OF CARE TEST O LORI Performing Organization Address [facility] Co de Phone Number [facility] [place] [address] * Differential, Automated (11/09/2019 2:26 AM EDT) Neutrophil % 58.4 % [facility] Neutrophil Absolute 3.44 1.70 - 6.10 x10(3)/[facility] LABORATORY Lymph % 26.7 % [facility] Lymphocytes Abs 1.6 0.9 - 3.2 x10(3)/[facility] LABORATORY Monocyte % 9.5 % [facility] Monocyte Abs 0.6 0.3 - 0.9 x10(3)/[facility] LABORATORY Eos % 3.9 % [facility] Eosinophils Abs 0.2 0.0 - 0.4 x10(3)/[facility] LABORATORY Basophil % 1.2 % [facility] Baso Absolute 0.1 0.0 - 0.1 x10(3)/[facility] LABORATORY Immature Gran % 0.30 % [facility] Comment: Immature granulocytes(IG's)percentage and absolute count will include metamyelocytes, myelocytes, and promyelocytes. Blood smears from CBCs yielding IG's will be scanned manually for concordance. If this scan disagrees with the automated IG or if promyelocytes are noted, a manual differential will be performed. Immature Gran Absolute 0.02 0.00 - 0.04 x10(3)/[facility] LABORATORY Blood specimen (specimen) 11/09/2019 2:26 AM EDT 11/09/2019 2:43 AM EDT Narrative Resulting Agency Comment Spec In Lab Maty Mcfadden [employer] WORK[employer] HEMATOLOGY ORDERABLE S Performing Organization Address City/State/[facility] Co de Phone Number [facility] [place] [address] * (ABNORMAL) Hemogram (11/09/2019 2:26 AM EDT) White Blood Cell 5.9 4.0 - 9.5 x10(3)/[facility] LABORATORY Red Blood Cell 4.27(L) 4.58 - 5.54 x10(6)/[facility] LABORATORY Hemoglobin 13.0(L) 13.7 - 16.5 gm/dL [facility] Hematocrit 39.8(L) 40.5 - 48.5 % [facility] Mean Cell Volume 93.2(H) 82.9 - 93.1 [facility] LABORATORY Mean Cell Hemoglobin 30.4 27.5 - 32.1 pg [facility] Mean Cell Hemoglobin Concentration 32.7 32.0 - 35.7 gm/dL [facility] Platelet 205 145 - 357 x10(3)/[facility] LABORATORY RDW Standard Deviation 44.1 36.0 - 45.0 [facility] LABORATORY RDW coefficient of variation 12.9 11.4 - 13.8 % [facility] Mean Platelet Volume 10.4 7.6 - 12.9 fL [facility] NRBC% auto 0.0 % [facility] NRBC Absolute 0.000 0.000 - 0.000 x10(3)/mc L [facility] Blood specimen (specimen) 11/09/2019 2:26 AM EDT 11/09/2019 2:43 AM EDT Narrative Resulting Agency Comment Spec In Lab Maty Mcfadden APRN HEMATOLOGY ORDERABLE S [facility] [place] [address] * Basic Metabolic Panel (non-fasting) (11/09/2019 2:26 AM EDT) Glucose 126 65 - 199 mg/dL [facility] Comment:Diabetes: >=200 mg/d L plus symptoms Blood Urea Nitrogen 18 10 - 20 mg/dL [facility] Creatinine 1.02 0.80 - 1.50 mg/dL [facility] Sodium 139 135 - 145 mmol/L [facility] Potassium 3.8 3.5 - 5.0 mmol/L [facility] Comment: Please note: ??Patients with WBC >100,000 may have falsely elevated Potassium levels. ??For accurate Potassium quantification in these patients send serum separator tube (gold top) for subsequent determinations. ??Contact the Clinical Chemistry Laboratory if there are any questions. Chloride 104 98 - 107 mmol/L [facility] Carbon Dioxide 23 22 - 31 mmol/L [facility] Anion Gap 12 5 - 15 mmol/L [facility] Calcium 9.1 8.5 - 10.5 mg/dL [facility] Est Glomerular Filtration Rate 73 >=60 mL/min/1. 73 m?? [facility] Comment: The eGFR was calculated using the CKD-EPI equation. As with all creatinine based estimates of kidney function, eGFR values calculated with the CKD-EPI equation are not accurate in patients with acute kidney failure, extremes of body mass or the acutely ill. [email or web address] [email or web address] eGFR 84 >=60 mL/min/1. 73 m?? [facility] Comment: The eGFR was calculated using the CKD-EPI equation. As with all creatinine based estimates of kidney function, eGFR values calculated with the CKD-EPI equation are not accurate in patients with acute kidney failure, extremes of body mass or the acutely ill. [email or web address] Blood specimen (specimen) 11/09/2019 2:26 AM EDT 11/09/2019 2:43 AM EDT Narrative Resulting Agency Comment Spec In Lab Casey Singh MD CHEMISTRY ORDERABLES [facility] [place] [address] * CT Head wo Contrast (Generic) (11/09/2019 1:08 AM EDT) Anatomical Region Laterality Modality Head Computed Tomogra phy Impressions 11/09/2019 2:50 AM EDT Very slight interval increase in size of the left frontal subdural hemorrhage, now 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 Grossly stable [id number] midline shift. I have personally reviewed the [...] 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 Grossly [id number] midline shift. I have personally reviewed the image(s) and the resident's interpretationand agree with the findings, Myrtle Rowan at 11/09/2019 2:50 AM Thank you for letting us participate in the care of this patient. Forquestions regarding this report, please contact the number below. Matyryan Gaffneyfelix [facility] IMG CT ORDERABLES * POCT Glucose (11/08/2019 8:58 PM EDT) Glucose, POC 104 65 - 199 mg/dL [facility] Comment: Supplemental ranges: <140 mg/dL before meals <180 mg/dL all other times of the day Blood specimen (specimen) 11/08/2019 8:58 PM EDT 11/08/2019 8:58 PM EDT Casey Singh MD POINT OF CARE TEST O LORI Performing Organization Address [facility]/ZIP Co de Phone Number [facility] [place] [address] * POCT Glucose (11/08/2019 5:37 PM EDT) Glucose, POC 120 65 - 199 mg/dL [facility] Comment: Supplemental ranges: <140 mg/dL before meals <180 mg/dL all other times of the day Blood specimen (specimen) 11/08/2019 5:37 PM EDT 11/08/2019 5:37 PM EDT Casey Singh MD POINT OF CARE TEST O LORI [facility] [place] [address] * POCT Glucose (11/08/2019 11:36 AM EDT) Glucose, POC 150 65 - 199 mg/dL [facility] Comment: Supplemental ranges: <140 mg/dL before meals <180 mg/dL all other times of the day Blood specimen (specimen) 11/08/2019 11:36 AM EDT 11/08/2019 11:36 AM EDT Casey Singh MD POINT OF CARE TEST O RDERABLES [facility] [place] [address] * POCT Glucose (11/08/2019 8:05 AM EDT) Glucose, POC 118 65 - 199 mg/dL [facility] Comment: Supplemental ranges: <140 mg/dL before meals <180 mg/dL all other times of the day Blood specimen (specimen) 11/08/2019 8:05 AM EDT 11/08/2019 8:05 AM EDT Casey Singh MD POINT OF CARE TEST O RDERABLES Performing Organization Address City/[facility] Co de Phone Number [facility] [place] [address] * Differential, Automated (11/08/2019 2:24 AM EDT) [facility] Neutrophil % 49.8 % [facility] Neutrophil Absolute 3.22 1.70 - 6.10 x10(3)/[facility] LABORATORY Lymph % 33.0 % [facility] Lymphocytes Abs 2.1 0.9 - 3.2 x10(3)/[facility] LABORATORY Monocyte % 10.1 % [facility] Monocyte Abs 0.6 0.3 - 0.9 x10(3)/[facility] LABORATORY Eos % 5.7 % [facility] Eosinophils Abs 0.4 0.0 - 0.4 x10(3)/[facility] LABORATORY Basophil % 1.2 % [facility] Baso Absolute 0.1 0.0 - 0.1 x10(3)/[facility] LABORATORY Immature Gran % 0.20 % [facility] Comment: Immature granulocytes(IG's)percentage and absolute count will include metamyelocytes, myelocytes, and promyelocytes. Blood smears from CBCs yielding IG's will be scanned manually for concordance. If this scan disagrees with the automated IG or if promyelocytes are noted, a manual differential will be performed. Immature Gran Absolute 0.01 0.00 - 0.04 x10(3)/mcL [facility] Blood specimen (specimen) 11/08/2019 2:24 AM EDT 11/08/2019 2:43 AM EDT Narrative Resulting Agency Comment Spec In Lab Maty Mcfadden APRN HEMATOLOGY ORDERABLE S [facility] [place] [address] * (ABNORMAL) Hemogram (11/08/2019 2:24 AM EDT) White Blood Cell 6.5 4.0 - 9.5 x10(3)/mc L [facility] Red Blood Cell 4.22(L) 4.58 - 5.54 x10(6)/mc L [facility] Hemoglobin 13.0(L) 13.7 - 16.5 gm/dL [facility] Hematocrit 38.7(L) 40.5 - 48.5 % [facility] Mean Cell Volume 91.7 82.9 - 93.1 fL [facility] Mean Cell Hemoglobin 30.8 27.5 - 32.1 pg [facility] Mean Cell Hemoglobin Concentration 33.6 32.0 - 35.7 gm/dL [facility] Platelet 188 145 - 357 x10(3)/mc L [facility] RDW Standard Deviation 43.0 36.0 - 45.0 [facility] LABORATORY RDW coefficient of variation 12.9 11.4 - 13.8 % [facility] Mean Platelet Volume 10.4 7.6 - 12.9 fL [facility] NRBC% auto 0.0 % [facility] NRBC Absolute 0.000 0.000 - 0.000 x10(3)/mc L [facility] Blood specimen (specimen) 11/08/2019 2:24 AM EDT 11/08/2019 2:43 AM EDT Narrative Resulting Agency Comment Spec In Lab Maty Mcfadden SUR[employer] WORK[employer] HEMATOLOGY ORDERABLE S [facility] [place] [address] * Basic Metabolic Panel (non-fasting) (11/08/2019 2:24 AM EDT) Glucose 130 65 - 199 mg/dL [facility] Comment:Diabetes: >=200 mg/d L plus symptoms Blood Urea Nitrogen 16 10 - 20 mg/dL [facility] Creatinine 0.92 0.80 - 1.50 mg/dL [facility] Sodium 140 135 - 145 mmol/L [facility] Potassium 4.0 3.5 - 5.0 mmol/L [facility] Comment: Please note: ??Patients with WBC >100,000 may have falsely elevated Potassium levels. ??For accurate Potassium quantification in these patients send serum separator tube (gold top) for subsequent determinations. ??Contact the Clinical Chemistry Laboratory if there are any questions. Chloride 102 98 - 107 mmol/L [facility] Carbon Dioxide 26 22 - 31 mmol/L [facility] Anion Gap 12 5 - 15 mmol/L [facility] Calcium 9.2 8.5 - 10.5 mg/dL [facility] Est Glomerular Filtration Rate 82 >=60 mL/min/1. 73 m?? [facility] Comment: The eGFR was calculated using the CKD-EPI equation. As with all creatinine based estimates of kidney function, eGFR values calculated with the CKD-EPI equation are not accurate in patients with acute kidney failure, extremes of body mass or the acutely ill. [email or web address] eGFR 95 >=60 mL/min/1. 73 m?? [facility] Comment: The eGFR was calculated using the CKD-EPI equation. As with all creatinine based estimates of kidney function, eGFR values calculated with the CKD-EPI equation are not accurate in patients with acute kidney failure, extremes of body mass or the acutely ill. [email or web address] Blood specimen (specimen) 11/08/2019 2:24 AM EDT 11/08/2019 2:43 AM EDT Narrative Resulting Agency Comment Spec In Lab Casey Singh MD CHEMISTRY ORDERABLES Performing Organization Address City/[facility]/ZIP Co de Phone Number [facility] [place] [address] * POCT Glucose (11/07/2019 8:55 PM EDT) Glucose, POC 130 65 - 199 mg/dL [facility] Comment: Supplemental ranges: <140 mg/dL before meals <180 mg/dL all other times of the day Blood specimen (specimen) 11/07/2019 8:55 PM EDT 11/07/2019 8:55 PM EDT Casey Singh MD POINT OF CARE TEST O RDERABLES Performing Organization Address [facility] Co de Phone Number [facility] [place] [address] * POCT Glucose (11/07/2019 5:11 PM EDT) Glucose, POC 119 65 - 199 mg/dL [facility] Comment: Supplemental ranges: <140 mg/dL before meals <180 mg/dL all other times of the day Blood specimen (specimen) 11/07/2019 5:11 PM EDT 11/07/2019 5:11 PM EDT Casey Singh MD POINT OF CARE TEST O LORI Performing Organization Address City/[facility]/ZIP Co de Phone Number [facility] [place] [address] * POCT Glucose (11/07/2019 11:53 AM EDT) Glucose, POC 106 65 - 199 mg/dL [facility] Comment: Supplemental ranges: <140 mg/dL before meals <180 mg/dL all other times of the day Blood specimen (specimen) 11/07/2019 11:53 AM EDT 11/07/2019 11:53 AM EDT Casey Singh MD POINT OF CARE TEST Sandi SANDOVAL Performing Organization Address [facility] Co de Phone Number [facility] [place] [address] * POCT Glucose (11/07/2019 7:45 AM EDT) Glucose, POC 117 65 - 199 mg/dL [facility] Comment: Supplemental ranges: <140 mg/dL before meals <180 mg/dL all other times of the day Blood specimen (specimen) 11/07/2019 7:45 AM EDT 11/07/2019 7:45 AM EDT Casey Singh MD POINT OF CARE TEST O LORI Performing Organization Address [facility] Co de Phone Number [facility] [place] [address] * Differential, Automated (11/07/2019 1:13 AM EDT) Neutrophil % 53.9 % [facility] Neutrophil Absolute 3.54 1.70 - 6.10 x10(3)/[facility] LABORATORY Lymph % 29.2 % [facility] Lymphocytes Abs 1.9 0.9 - 3.2 x10(3)/[facility] LABORATORY Monocyte % 9.9 % [facility] Monocyte Abs 0.6 0.3 - 0.9 x10(3)/[facility] LABORATORY Eos % 5.3 % [facility] Eosinophils Abs 0.4 0.0 - 0.4 x10(3)/[facility] LABORATORY Basophil % 1.4 % [facility] Baso Absolute 0.1 0.0 - 0.1 x10(3)/[facility] LABORATORY Immature Gran % 0.30 % [facility] Comment: Immature granulocytes(IG's)percentage and absolute count will include metamyelocytes, myelocytes, and promyelocytes. Blood smears from CBCs yielding IG's will be scanned manually for concordance. If this scan disagrees with the automated IG or if promyelocytes are noted, a manual differential will be performed. Immature Gran Absolute 0.02 0.00 - 0.04 x10(3)/[facility] LABORATORY Blood specimen (specimen) 11/07/2019 1:13 AM EDT 11/07/2019 1:29 AM EDT Narrative Resulting Agency Comment Spec In Lab Maty Mcfadden APRN HEMATOLOGY ORDERABLE S Performing Organization Address City/State/[facility] Co de Phone Number [facility] [place] [address] * (ABNORMAL) Hemogram (11/07/2019 1:13 AM EDT) White Blood Cell 6.6 4.0 - 9.5 x10(3)/[facility] LABORATORY Red Blood Cell 4.44(L) 4.58 - 5.54 x10(6)/[facility] LABORATORY Hemoglobin 13.5(L) 13.7 - 16.5 gm/dL [facility] Hematocrit 40.5 40.5 - 48.5 % [facility] Mean Cell Volume 91.2 82.9 - 93.1 fL [facility] Mean Cell Hemoglobin 30.4 27.5 - 32.1 pg [facility] Mean Cell Hemoglobin Concentration 33.3 32.0 - 35.7 gm/dL [facility] Platelet 187 145 - 357 x10(3)/[facility] LABORATORY RDW Standard Deviation 42.5 36.0 - 45.0 [facility] LABORATORY RDW coefficient of variation 12.9 11.4 - 13.8 % [facility] Mean Platelet Volume 10.5 7.6 - 12.9 [facility] LABORATORY NRBC% auto 0.0 % [facility] NRBC Absolute 0.000 0.000 - 0.000 x10(3)/mc L [facility] Blood specimen (specimen) 11/07/2019 1:13 AM EDT 11/07/2019 1:29 AM EDT Narrative Resulting Agency Comment Spec In Lab Maty Mcfadden APRN HEMATOLOGY ORDERABLE S [facility] [place] [address] * Basic Metabolic Panel (non-fasting) (11/07/2019 1:13 AM EDT) Glucose 132 65 - 199 mg/dL [facility] Comment:Diabetes: >=200 mg/d L plus symptoms Blood Urea Nitrogen 16 10 - 20 mg/dL [facility] Creatinine 0.96 0.80 - 1.50 mg/dL [facility] Sodium 139 135 - 145 mmol/L [facility] Potassium 4.1 3.5 - 5.0 mmol/L [facility] Comment: Please note: ??Patients with WBC >100,000 may have falsely elevated Potassium levels. ??For accurate Potassium quantification in these patients send serum separator tube (gold top) for subsequent determinations. ??Contact the Clinical Chemistry Laboratory if there are any questions. Chloride 106 98 - 107 mmol/L [facility] Carbon Dioxide 23 22 - 31 mmol/L [facility] Anion Gap 10 5 - 15 mmol/L [facility] Calcium 8.9 8.5 - 10.5 mg/dL [facility] Est Glomerular Filtration Rate 78 >=60 mL/min/1. 73 m?? [facility] Comment: The eGFR was calculated using the CKD-EPI equation. As with all creatinine based estimates of kidney function, eGFR values calculated with the CKD-EPI equation are not accurate in patients with acute kidney failure, extremes of body mass or the acutely ill. [email or web address] eGFR 91 >=60 mL/min/1. 73 m?? [facility] Comment: The eGFR was calculated using the CKD-EPI equation. As with all creatinine based estimates of kidney function, eGFR values calculated with the CKD-EPI equation are not accurate in patients with acute kidney failure, extremes of body mass or the acutely ill. [email or web address] Blood specimen (specimen) 11/07/2019 1:13 AM EDT 11/07/2019 1:29 AM EDT Narrative Resulting Agency Comment Spec In Lab Casey Singh MD CHEMISTRY ORDERABLES Performing Organization Address [facility] Co de Phone Number [facility] [place] [address] * POCT Glucose (11/06/2019 8:14 PM EDT) Glucose, POC 132 65 - 199 mg/dL [facility] Comment: Supplemental ranges: <140 mg/dL before meals <180 mg/dL all other times of the day Blood specimen (specimen) 11/06/2019 8:14 PM EDT 11/06/2019 8:14 PM EDT Casey Singh MD POINT OF CARE TEST O RDERABLES Performing Organization Address [facility]/ZIP Co de Phone Number [facility] [place] [address] * POCT Glucose (11/06/2019 12:09 PM EDT) Glucose, POC 98 65 - 199 mg/dL [facility] Comment: Supplemental ranges: <140 mg/dL before meals <180 mg/dL all other times of the day Blood specimen (specimen) 11/06/2019 12:09 PM EDT 11/06/2019 12:09 PM EDT Casey Singh MD POINT OF CARE TEST O RDERAPAMELA [facility] [place] [address] * POCT Glucose (11/06/2019 7:56 AM EDT) Glucose, POC 115 65 - 199 mg/dL [facility] Comment: Supplemental ranges: <140 mg/dL before meals <180 mg/dL all other times of the day Blood specimen (specimen) 11/06/2019 7:56 AM EDT 11/06/2019 7:56 AM EDT Casey Singh MD POINT OF CARE TEST O LORI Performing Organization Address City/[facility]/ZIP Co de Phone Number [facility] [place] [address] * Differential, Automated (11/06/2019 1:25 AM EDT) [facility] Neutrophil % 57.2 % [facility] Neutrophil Absolute 4.23 1.70 - 6.10 x10(3)/[facility] LABORATORY Lymph % 26.9 % [facility] Lymphocytes Abs 2.0 0.9 - 3.2 x10(3)/[facility] LABORATORY Monocyte % 10.1 % [facility] Monocyte Abs 0.8 0.3 - 0.9 x10(3)/[facility] LABORATORY Eos % 4.7 % [facility] Eosinophils Abs 0.4 0.0 - 0.4 x10(3)/[facility] LABORATORY Basophil % 0.8 % [facility] Baso Absolute 0.1 0.0 - 0.1 x10(3)/[facility] LABORATORY Immature Gran % 0.30 % [facility] Comment: Immature granulocytes(IG's)percentage and absolute count will include metamyelocytes, myelocytes, and promyelocytes. Blood smears from CBCs yielding IG's will be scanned manually for concordance. If this scan disagrees with the automated IG or if promyelocytes are noted, a manual differential will be performed. Immature Gran Absolute 0.02 0.00 - 0.04 x10(3)/mcL [facility] Blood specimen (specimen) 11/06/2019 1:25 AM EDT 11/06/2019 1:41 AM EDT Narrative Resulting Agency Comment Spec In Lab Maty Mcfadden [employer] HEMATOLOGY ORDERABLE S [facility] [place] [address] * (ABNORMAL) Hemogram (11/06/2019 1:25 AM EDT) White Blood Cell 7.4 4.0 - 9.5 x10(3)/mc L [facility] Red Blood Cell 4.27(L) 4.58 - 5.54 x10(6)/mc L [facility] Hemoglobin 13.1(L) 13.7 - 16.5 gm/dL [facility] Hematocrit 39.5(L) 40.5 - 48.5 % [facility] Mean Cell Volume 92.5 82.9 - 93.1 fL [facility] Mean Cell Hemoglobin 30.7 27.5 - 32.1 pg [facility] Mean Cell Hemoglobin Concentration 33.2 32.0 - 35.7 gm/dL [facility] Platelet 179 145 - 357 x10(3)/mc L [facility] RDW Standard Deviation 42.6 36.0 - 45.0 [facility] LABORATORY RDW coefficient of variation 12.5 11.4 - 13.8 % [facility] Mean Platelet Volume 10.5 7.6 - 12.9 fL [facility] NRBC% auto 0.0 % [facility] NRBC Absolute 0.000 0.000 - 0.000 x10(3)/mc L [facility] Blood specimen (specimen) 11/06/2019 1:25 AM EDT 11/06/2019 1:41 AM EDT Narrative Resulting Agency Comment Spec In Lab Maty Mcfadden [employer] WORK[employer] HEMATOLOGY ORDERABLE S [facility] [place] [address] * (ABNORMAL) Basic Metabolic Panel (non-fasting) (11/06/2019 1:25 AM EDT) Glucose 87 65 - 199 mg/dL [facility] Comment:Diabetes: >=200 mg/d L plus symptoms Blood Urea Nitrogen 12 10 - 20 mg/dL [facility] Creatinine 0.96 0.80 - 1.50 mg/dL [facility] Sodium 140 135 - 145 mmol/L [facility] Potassium 4.0 3.5 - 5.0 mmol/L [facility] Comment: Please note: ??Patients with WBC >100,000 may have falsely elevated Potassium levels. ??For accurate Potassium quantification in these patients send serum separator tube (gold top) for subsequent determinations. ??Contact the Clinical Chemistry Laboratory if there are any questions. Chloride 109(H) 98 - 107 mmol/L [facility] Carbon Dioxide 21(L) 22 - 31 mmol/L [facility] Anion Gap 10 5 - 15 mmol/L [facility] Calcium 8.8 8.5 - 10.5 mg/dL [facility] Est Glomerular Filtration Rate 78 >=60 mL/min/1. 73 m?? [facility] Comment: The eGFR was calculated using the CKD-EPI equation. As with all creatinine based estimates of kidney function, eGFR values calculated with the CKD-EPI equation are not accurate in patients with acute kidney failure, extremes of body mass or the acutely ill. [email or web address] eGFR 91 >=60 mL/min/1. 73 m?? [facility] Comment: The eGFR was calculated using the CKD-EPI equation. As with all creatinine based estimates of kidney function, eGFR values calculated with the CKD-EPI equation are not accurate in patients with acute kidney failure, extremes of body mass or the acutely ill. [email or web address] Blood specimen (specimen) 11/06/2019 1:25 AM EDT 11/06/2019 1:41 AM EDT Narrative Resulting Agency Comment Spec In Lab Casey Singh MD CHEMISTRY ORDERABLES Performing Organization Address City/[facility]/ZIP Co de Phone Number [facility] [place] [address] * POCT Glucose (11/05/2019 8:28 PM EDT) Glucose, POC 114 65 - 199 mg/dL [facility] Comment: Supplemental ranges: <140 mg/dL before meals <180 mg/dL all other times of the day Blood specimen (specimen) 11/05/2019 8:28 PM EDT 11/05/2019 8:28 PM EDT Casey iSngh MD POINT OF CARE TEST O RDERABLES Performing Organization Address [facility] Co de Phone Number [facility] [place] [address] * POCT Glucose (11/05/2019 6:58 PM EDT) Glucose, POC 78 65 - 199 mg/dL [facility] Comment: Supplemental ranges: <140 mg/dL before meals <180 mg/dL all other times of the day Blood specimen (specimen) 11/05/2019 6:58 PM EDT 11/05/2019 6:58 PM EDT Casey Singh MD POINT OF CARE TEST O RDERABLES Performing Organization Address City/[facility]/ZIP Co de Phone Number [facility] [place] [address] * (ABNORMAL) POCT Glucose (11/05/2019 6:18 PM EDT) Glucose, POC 60(L) 65 - 199 mg/dL [facility] Comment: Supplemental ranges: <140 mg/dL before meals <180 mg/dL all other times of the day Blood specimen (specimen) 11/05/2019 6:18 PM EDT 11/05/2019 6:18 PM EDT Casey Singh MD POINT OF CARE TEST O RDERAPAMELA [facility] [place] [address] * POCT Glucose (11/05/2019 12:02 PM EDT) Glucose, POC 73 65 - 199 mg/dL [facility] Comment: Supplemental ranges: <140 mg/dL before meals <180 mg/dL all other times of the day Blood specimen (specimen) 11/05/2019 12:02 PM EDT 11/05/2019 12:02 PM EDT Casey Singh MD POINT OF CARE TEST O BENJAMINERAPAMELA [facility] [place] [address] * POCT Glucose (11/05/2019 8:11 AM EDT) Glucose, POC 70 65 - 199 mg/dL [facility] Comment: Supplemental ranges: <140 mg/dL before meals <180 mg/dL all other times of the day Blood specimen (specimen) 11/05/2019 8:11 AM EDT 11/05/2019 8:11 AM EDT Casey Singh MD POINT OF CARE TEST O RDERAPAMELA [facility] [place] [address] * CT Head wo Contrast (Generic) (11/05/2019 [...] with grossly stable 7 to 8 mm [id number] midline shift. The suprasellar and basal cisterns [...] with grossly stable 7 to 8 mm [id number] midline shift. The suprasellar and basal cisterns [...] 1:16 AM EDT) Neutrophil % 61.3 % [facility] Neutrophil Absolute 4.79 1.70 - 6.10 x10(3)/[facility] LABORATORY Lymph % 25.4 % [facility] Lymphocytes Abs 2.0 0.9 - 3.2 x10(3)/[facility] LABORATORY Monocyte % 8.3 % [facility] Monocyte Abs 0.6 0.3 - 0.9 x10(3)/[facility] LABORATORY Eos % 4.1 % [facility] Eosinophils Abs 0.3 0.0 - 0.4 x10(3)/[facility] LABORATORY Basophil % 0.8 % [facility] Baso Absolute 0.1 0.0 - 0.1 x10(3)/[facility] LABORATORY Immature Gran % 0.10 % [facility] Comment: Immature granulocytes(IG's)percentage and absolute count will include metamyelocytes, myelocytes, and promyelocytes. Blood smears from CBCs yielding IG's will be scanned manually for concordance. If this scan disagrees with the automated IG or if promyelocytes are noted, a manual differential will be performed. Immature Gran Absolute 0.01 0.00 - 0.04 x10(3)/mcL [facility] Blood specimen (specimen) 11/05/2019 1:16 AM EDT 11/05/2019 1:35 AM EDT Narrative Resulting Agency Comment Spec In Lab Maty Mcfadden APRN HEMATOLOGY ORDERABLE S [facility] [place] [address] * (ABNORMAL) Hemogram (11/05/2019 1:16 AM EDT) White Blood Cell 7.8 4.0 - 9.5 x10(3)/mc L [facility] Red Blood Cell 4.32(L) 4.58 - 5.54 x10(6)/mc L [facility] Hemoglobin 13.0(L) 13.7 - 16.5 gm/dL [facility] Hematocrit 40.1(L) 40.5 - 48.5 % [facility] Mean Cell Volume 92.8 82.9 - 93.1 fL [facility] Mean Cell Hemoglobin 30.1 27.5 - 32.1 pg [facility] Mean Cell Hemoglobin Concentration 32.4 32.0 - 35.7 gm/dL [facility] Platelet 175 145 - 357 x10(3)/mc L [facility] RDW Standard Deviation 43.9 36.0 - 45.0 [facility] LABORATORY RDW coefficient of variation 12.8 11.4 - 13.8 % [facility] Mean Platelet Volume 10.2 7.6 - 12.9 fL [facility] NRBC% auto 0.0 % [facility] NRBC Absolute 0.000 0.000 - 0.000 x10(3)/mc L [facility] Blood specimen (specimen) 11/05/2019 1:16 AM EDT 11/05/2019 1:35 AM EDT Narrative Resulting Agency Comment Spec In Lab Maty Gaffneyinn [employer] WORK[employer] HEMATOLOGY ORDERABLE S [facility] [place] [address] * Basic Metabolic Panel (non-fasting) (11/05/2019 1:16 AM EDT) Glucose 77 65 - 199 mg/dL [facility] Comment:Diabetes: >=200 mg/d L plus symptoms Blood Urea Nitrogen 11 10 - 20 mg/dL [facility] Creatinine 0.91 0.80 - 1.50 mg/dL [facility] Sodium 139 135 - 145 mmol/L [facility] Potassium 4.2 3.5 - 5.0 mmol/L [facility] Comment: Please note: ??Patients with WBC >100,000 may have falsely elevated Potassium levels. ??For accurate Potassium quantification in these patients send serum separator tube (gold top) for subsequent determinations. ??Contact the Clinical Chemistry Laboratory if there are any questions. Chloride 107 98 - 107 mmol/L [facility] Carbon Dioxide 22 22 - 31 mmol/L [facility] Anion Gap 10 5 - 15 mmol/L [facility] Calcium 8.8 8.5 - 10.5 mg/dL [facility] Est Glomerular Filtration Rate 83 >=60 mL/min/1. 73 m?? [facility] Comment: The eGFR was calculated using the CKD-EPI equation. As with all creatinine based estimates of kidney function, eGFR values calculated with the CKD-EPI equation are not accurate in patients with acute kidney failure, extremes of body mass or the acutely ill. [email or web address] eGFR 97 >=60 mL/min/1. 73 m?? [facility] Comment: The eGFR was calculated using the CKD-EPI equation. As with all creatinine based estimates of kidney function, eGFR values calculated with the CKD-EPI equation are not accurate in patients with acute kidney failure, extremes of body mass or the acutely ill. [email or web address] Blood specimen (specimen) 11/05/2019 1:16 AM EDT 11/05/2019 1:35 AM EDT Narrative Resulting Agency Comment Spec In Lab Casey Singh MD CHEMISTRY ORDERABLES Performing Organization Address [facility] Co de Phone Number [facility] [place] [address] * POCT Glucose (11/04/2019 9:00 PM EDT) [facility] Glucose, POC 82 65 - 199 mg/dL [facility] Comment: Supplemental ranges: <140 mg/dL before meals <180 mg/dL all other times of the day Blood specimen (specimen) 11/04/2019 9:00 PM EDT 11/04/2019 9:00 PM EDT Casey Singh MD POINT OF CARE TEST O RDERABLES Performing Organization Address [facility] Co de Phone Number [facility] [place] [address] * Troponin (11/04/2019 7:19 PM EDT) [facility] Troponin-T <0.01 0.00 - 0.00 ng/mL [facility] Comment: The 99th percentile for Troponin T is less than 0.01 ng/mL, any detectable cTnT concentration using this assay should be considered elevated. According to the third universal definition of myocardial infarction the following criteria with a clinical presentation consistent with acute myocardial ischemia meets the diagnosis for a myocardial infarction (NH). Detection of a rise and/or fall of cTnT, with at least one value greater than the 99th percentile (> or = 0.01) and with at least one of the following ?? Symptoms of ischemia ?? New or presumed new significant [id number] wave (ST-T) changes or new left bundle [...] additional sample may be indicated. Reference: Third [place] Definition of Myocardial Infarction. Journal of the [place] [employer] 2012;60:1581-98 Blood specimen (specimen) 11/04/2019 7:19 PM EDT 11/04/2019 7:33 PM EDT Narrative Resulting Agency Comment Spec In Lab Casey Singh MD CHEMISTRY ORDERABLES Performing Organization Address [facility] Co de Phone Number [facility] [place] [address] * EKG 12 Lead (11/04/2019 7:16 PM EDT) Pathologist [facility] [place] Ventricular rate 60 BPM MUSE SYSTEM Atrial Rate 60 BPM MUSE SYSTEM P-R Interval 166 ms MUSE SYSTEM QRS Duration 80 ms MUSE SYSTEM Q-T Interval 390 ms MUSE SYSTEM QTC Calculated (Bezet) 390 ms MUSE SYSTEM Calculated P [place] 47 degrees MUSE SYSTEM Calculated R [place] -6 degrees MUSE SYSTEM Calculated T [place] 20 degrees MUSE SYSTEM INTERPRETATION Normal sinus rhythm Normal ECG No previous ECGs available Confirmed by Dedrick Gaspar MD ([id number]) on 11/06/2019 1:56:59 PM MUSE SYSTEM 11/04/2019 7:16 PM EDT 11/06/2019 1:56 PM EDT Casey Singh MD ECG ORDERABLES Performing Organization Address [facility] Co de Phone Number MUSE SYSTEM * POCT Glucose (11/04/2019 6:22 PM EDT) [facility] Glucose, POC 88 65 - 199 mg/dL [facility] Comment: Supplemental ranges: <140 mg/dL before meals <180 mg/dL all other times of the day Blood specimen (specimen) 11/04/2019 6:22 PM EDT 11/04/2019 6:22 PM EDT Casey Singh MD POINT OF CARE TEST O LORI Performing Organization Address [facility]/ZIP Co de Phone Number [facility] [place] [address] * POCT Glucose (11/04/2019 4:30 PM EDT) Glucose, POC 80 65 - 199 mg/dL [facility] Comment: Supplemental ranges: <140 mg/dL before meals <180 mg/dL all other times of the day Blood specimen (specimen) 11/04/2019 4:30 PM EDT 11/04/2019 4:30 PM EDT Casey Singh MD POINT OF CARE TEST O LORI Performing Organization Address [facility] Co de Phone Number [facility] [place] [address] * POCT Glucose (11/04/2019 12:15 PM EDT) Glucose, POC 72 65 - 199 mg/dL [facility] Comment: Supplemental ranges: <140 mg/dL before meals <180 mg/dL all other times of the day Blood specimen (specimen) 11/04/2019 12:15 PM EDT 11/04/2019 12:15 PM EDT Casey Singh MD POINT OF CARE TEST O LORI Performing Organization Address [facility] Co de Phone Number [facility] [place] [address] * POCT Glucose (11/04/2019 7:42 AM EDT) Glucose, POC 77 65 - 199 mg/dL [facility] Comment: Supplemental ranges: <140 mg/dL before meals <180 mg/dL all other times of the day Blood specimen (specimen) 11/04/2019 7:42 AM EDT 11/04/2019 7:42 AM EDT Casey Singh MD POINT OF CARE TEST O RDERABLES [facility] [place] [address] * CT Head wo Contrast (Generic) (11/04/2019 [...] below. ? Electronically signed by: TALI Thomas [facility] ([phone]), at 11/04/2019 6:39 AM Narrative 11/04/2019 6:39 [...] 3:48 AM EDT) Neutrophil % 68.3 % [facility] Neutrophil Absolute 5.46 1.70 - 6.10 x10(3)/[facility] LAB[facility] Lymph % 20.3 % [facility] Lymphocytes Abs 1.6 0.9 - 3.2 x10(3)/[facility] Monocyte % 9.5 % [facility] Monocyte Abs 0.8 0.3 - 0.9 x10(3)/[facility] Eos % 0.9 % [facility] Eosinophils Abs 0.1 0.0 - 0.4 x10(3)/[facility] Basophil % 0.6 % [facility] Baso Absolute 0.0 0.0 - 0.1 x10(3)/[facility] Immature Gran % 0.40 % [facility] Comment: Immature granulocytes(IG's)percentage and absolute count will include metamyelocytes, myelocytes, and promyelocytes. Blood smears from CBCs yielding IG's will be scanned manually for concordance. If this scan disagrees with the automated IG or if promyelocytes are noted, a manual differential will be performed. Immature Gran Absolute 0.03 0.00 - 0.04 x10(3)/[facility] Blood specimen (specimen) 11/04/2019 3:48 AM EDT 11/04/2019 4:15 AM EDT Narrative Resulting Agency Comment Spec In Lab Maty Mcfadden APRN HEMATOLOGY ORDERABLE S [facility] [place] [address] * (ABNORMAL) Hemogram (11/04/2019 3:48 AM EDT) White Blood Cell 8.0 4.0 - 9.5 x10(3)/[facility] LAB[facility]ATORY Red Blood Cell 4.39(L) 4.58 - 5.54 x10(6)/ L [facility] Hemoglobin 13.4(L) 13.7 - 16.5 gm/dL [facility] Hematocrit 40.7 40.5 - 48.5 % [facility] Mean Cell Volume 92.7 82.9 - 93.1 [facility] Mean Cell Hemoglobin 30.5 27.5 - 32.1 pg [facility] Mean Cell Hemoglobin Concentration 32.9 32.0 - 35.7 gm/dL [facility] Platelet 171 145 - 357 x10(3)/mc L [facility] RDW Standard Deviation 43.4 36.0 - 45.0 [facility] RDW coefficient of variation 12.7 11.4 - 13.8 % [facility] Mean Platelet Volume 10.6 7.6 - 12.9 fL [facility] NRBC% auto 0.0 % [facility] NRBC Absolute 0.000 0.000 - 0.000 x10(3)/mc L [facility] Blood specimen (specimen) 11/04/2019 3:48 AM EDT 11/04/2019 4:15 AM EDT Narrative Resulting Agency Comment Spec In Lab Maty Mcfadden SURVEY WORKER HEMATOLOGY ORDERABLE S [facility] [place] [address] * Basic Metabolic Panel (non-fasting) (11/04/2019 3:48 AM EDT) Glucose 97 65 - 199 mg/dL [facility] Comment:Diabetes: >=200 mg/d L plus symptoms Blood Urea Nitrogen 10 10 - 20 mg/dL [facility] Creatinine 0.91 0.80 - 1.50 mg/dL [facility] Sodium 141 135 - 145 mmol/L [facility] Potassium 4.3 3.5 - 5.0 mmol/L [facility] Comment: Please note: ??Patients with WBC >100,000 may have falsely elevated Potassium levels. ??For accurate Potassium quantification in these patients send serum separator tube (gold top) for subsequent determinations. ??Contact the Clinical Chemistry Laboratory if there are any questions. Chloride 107 98 - 107 mmol/L [facility] Carbon Dioxide 23 22 - 31 mmol/L [facility] Anion Gap 11 5 - 15 mmol/L [facility] Calcium 8.9 8.5 - 10.5 mg/dL [facility] Est Glomerular Filtration Rate 83 >=60 mL/min/1. 73 m?? [facility] Comment: The eGFR was calculated using the CKD-EPI equation. As with all creatinine based estimates of kidney function, eGFR values calculated with the CKD-EPI equation are not accurate in patients with acute kidney failure, extremes of body mass or the acutely ill. [email or web address] eGFR 97 >=60 mL/min/1. 73 m?? [facility] Comment: The eGFR was calculated using the CKD-EPI equation. As with all creatinine based estimates of kidney function, eGFR values calculated with the CKD-EPI equation are not accurate in patients with acute kidney failure, extremes of body mass or the acutely ill. [email or web address] Blood specimen (specimen) 11/04/2019 3:48 AM EDT 11/04/2019 4:15 AM EDT Narrative Resulting Agency Comment Spec In Lab Casey Singh MD CHEMISTRY ORDERABLES Performing Organization Address [facility] Co de Phone Number [facility] [place] [address] * POCT Glucose (11/03/2019 11:53 PM EDT) Glucose, POC 77 65 - 199 mg/dL [facility] Comment: Supplemental ranges: <140 mg/dL before meals <180 mg/dL all other times of the day Blood specimen (specimen) 11/03/2019 11:53 PM EDT 11/03/2019 11:53 PM EDT Casey Singh MD POINT OF CARE TEST O RDERABLES Performing Organization Address [facility]/ZIP Co de Phone Number [facility] [place] [address] * POCT Glucose (11/03/2019 6:34 PM EDT) Glucose, POC 93 65 - 199 mg/dL [facility] Comment: Supplemental ranges: <140 mg/dL before meals <180 mg/dL all other times of the day Blood specimen (specimen) 11/03/2019 6:34 PM EDT 11/03/2019 6:34 PM EDT Casey Singh MD POINT OF CARE TEST O RDERABLES [facility] [place] [address] * IR EMBOLIZATION MIDDLE MENINGEAL ARTERY UNILATERAL [...] Electronically signed by: Hussain Christianson [facility] ([phone]), at 11/10/2019 10:28 AM Narrative 11/10/2019 10:28 [...] NB Advantage 5 Fr STEVO selective catheter, Cunningham SL-10 microcatheter, Synchro2 microwire, 250 micron Embozene- 1 vial, 6 [place] Angio-Seal. DESCRIPTION: The procedure, its risks and [...] The guide catheter was removed The 5 Emirati Kalyan catheter was then placed in the [...] Torcon NBAdvantage 5 Fr STEVO selective catheter, Cunningham SL-10 microcatheter, [id number], 250 micron Embozene- 1 vial, 6 [place] Angio-Seal. DESCRIPTION: The procedure, its risks and [...] The guide catheter was removed The 5 [place] Kalyan catheter was then placed in the [...] Electronically signed by: Hussain Christianson [facility]([phone]), at 11/10/2019 10:28 AM Casey Singh MD IMG IR ORDERABLES * (ABNORMAL) BLOOD GAS 2 ARTERIAL (11/03/2019 3:04 PM EDT) pH, Arterial 7.41 7.35 - 7.45 [facility] PCO2, Arterial 34(L) 35 - 45 mmHg [facility] PO2, Arterial 218(H) 85 - 104 mmHg [facility] Bicarbonate, Arterial 21.7 20.0 - 26.0 mmol/L [facility] Base Excess, Arterial -3.1(L) -3.0 - 3.0 mmol/L [facility] Hgb Blood Gas 14.1 13.7 - 16.5 gm/dL [facility] Oxyhemoglobin, Arterial 98.3(H) 94.0 - 97.0 % [facility] Carboxyhemoglob in, Arterial 1.0 % [facility] Comment: Nonsmokers: 0.5-1.5% COHB Smokers: Variable, but usually less than 10% Toxic: 20-30% COHB Lethal: Greater than 60% COHB Methemoglobin, Arterial 0.3 <=1.5 % [facility] Na Whole Blood 138 135 - 145 mmol/L [facility] K Whole Blood 3.8 3.5 - 5.0 mmol/L [facility] Comment: Please note: Patients with WBC >100,000 may have falsely elevated Potassium levels. Contact the Clinical Chemistry Laboratory if there are any questions. ICa Whole Blood 1.17 1.15 - 1.33 mmol/L [facility] Comment: Note: ??Total bilirubin higher than 20 mg/dL may lead to falsely low ionized calcium. CL Whole Blood 110(H) 98 - 107 mmol/L [facility] Gluc Whole Bld 84 65 - 199 mg/dL [facility] Comment:Diabetes: >=200 mg/d L plus symptoms. Lactate WB 1.3 0.5 - 2.2 mmol/L [facility] Temp Art 36.1 Celsius [facility] Blood specimen (specimen) 11/03/2019 3:04 PM EDT 11/03/2019 3:04 PM EDT Casey Singh MD POINT OF CARE TEST Sandi SANDOVAL Performing Organization Address [facility] Co de Phone Number [facility] [place] [address] * POCT Glucose (11/03/2019 12:13 PM EDT) Glucose, POC 92 65 - 199 mg/dL [facility] Comment: Supplemental ranges: <140 mg/dL before meals <180 mg/dL all other times of the day Blood specimen (specimen) 11/03/2019 12:13 PM EDT 11/03/2019 12:13 PM EDT Casey Singh MD POINT OF CARE TEST O LORI Performing Organization Address City/[facility] Co de Phone Number [facility] [place] [address] * POCT Glucose (11/03/2019 8:24 AM EDT) Pathologist [facility] [place] Glucose, POC 113 65 - 199 mg/dL [facility] Comment: Supplemental ranges: <140 mg/dL before meals <180 mg/dL all other times of the day Blood specimen (specimen) 11/03/2019 8:24 AM EDT 11/03/2019 8:24 AM EDT Casey Singh MD POINT OF CARE TEST O RDERABLES [facility] [place] [address] * Differential, Automated (11/03/2019 5:26 AM EDT) [facility] Neutrophil % 59.6 % [facility] Neutrophil Absolute 4.42 1.70 - 6.10 x10(3)/[facility] LABORATORY Lymph % 25.9 % [facility] Lymphocytes Abs 1.9 0.9 - 3.2 x10(3)/[facility] LABORATORY Monocyte % 8.2 % [facility] Monocyte Abs 0.6 0.3 - 0.9 x10(3)/[facility] LABORATORY Eos % 5.1 % [facility] Eosinophils Abs 0.4 0.0 - 0.4 x10(3)/[facility] LAB[facility] Basophil % 0.9 % [facility] Baso Absolute 0.1 0.0 - 0.1 x10(3)/[facility] LABORATORY Immature Gran % 0.30 % [facility] Comment: Immature granulocytes(IG's)percentage and absolute count will include metamyelocytes, myelocytes, and promyelocytes. Blood smears from CBCs yielding IG's will be scanned manually for concordance. If this scan disagrees with the automated IG or if promyelocytes are noted, a manual differential will be performed. Immature Gran Absolute 0.02 0.00 - 0.04 x10(3)/[facility] LABORATORY Blood specimen (specimen) 11/03/2019 5:26 AM EDT 11/03/2019 5:43 AM EDT Narrative Resulting Agency Comment Spec In Lab Maty Mcfadden SURVEY WORKER HEMATOLOGY ORDERABLE S [facility] [place] [address] * (ABNORMAL) Hemogram (11/03/2019 5:26 AM EDT) White Blood Cell 7.4 4.0 - 9.5 x10(3)/[facility] LABORATORY Red Blood Cell 4.46(L) 4.58 - 5.54 x10(6)/[facility] LABORATORY Hemoglobin 13.7 13.7 - 16.5 gm/dL [facility] Hematocrit 41.8 40.5 - 48.5 % [facility] Mean Cell Volume 93.7(H) 82.9 - 93.1 [facility] LAB[facility]ATORY Mean Cell Hemoglobin 30.7 27.5 - 32.1 pg [facility] Mean Cell Hemoglobin Concentration 32.8 32.0 - 35.7 gm/dL [facility] Platelet 187 145 - 357 x10(3)/ L [facility] RDW Standard Deviation 44.2 36.0 - 45.0 [facility] RDW coefficient of variation 12.8 11.4 - 13.8 % [facility] Mean Platelet Volume 10.2 7.6 - 12.9 [facility] LABORATORY NRBC% auto 0.0 % [facility] NRBC Absolute 0.000 0.000 - 0.000 x10(3)/ L [facility] Blood specimen (specimen) 11/03/2019 5:26 AM EDT 11/03/2019 5:43 AM EDT Narrative Resulting Agency Comment Spec In Lab Maty Mcfadden SURVEY WORKER HEMATOLOGY ORDERABLE S [facility] [place] [address] * Basic Metabolic Panel (non-fasting) (11/03/2019 5:26 AM EDT) Glucose 104 65 - 199 mg/dL [facility] Comment:Diabetes: >=200 mg/d L plus symptoms Blood Urea Nitrogen 13 10 - 20 mg/dL [facility] Creatinine 0.99 0.80 - 1.50 mg/dL [facility] Sodium 140 135 - 145 mmol/L [facility] Potassium 4.3 3.5 - 5.0 mmol/L [facility] Comment: Please note: ??Patients with WBC >100,000 may have falsely elevated Potassium levels. ??For accurate Potassium quantification in these patients send serum separator tube (gold top) for subsequent determinations. ??Contact the Clinical Chemistry Laboratory if there are any questions. Chloride 106 98 - 107 mmol/L [facility] Carbon Dioxide 24 22 - 31 mmol/L [facility] Anion Gap 10 5 - 15 mmol/L [facility] Calcium 8.7 8.5 - 10.5 mg/dL [facility] Est Glomerular Filtration Rate 75 >=60 mL/min/1. 73 m?? [facility] Comment: The eGFR was calculated using the CKD-EPI equation. As with all creatinine based estimates of kidney function, eGFR values calculated with the CKD-EPI equation are not accurate in patients with acute kidney failure, extremes of body mass or the acutely ill. [email or web address] eGFR 87 >=60 mL/min/1. 73 m?? [facility] Comment: The eGFR was calculated using the CKD-EPI equation. As with all creatinine based estimates of kidney function, eGFR values calculated with the CKD-EPI equation are not accurate in patients with acute kidney failure, extremes of body mass or the acutely ill. [email or web address] Blood specimen (specimen) 11/03/2019 5:26 AM EDT 11/03/2019 5:43 AM EDT Narrative Resulting Agency Comment Spec In Lab Casey Singh MD CHEMISTRY ORDERABLES Performing Organization Address City/State/[facility] Co de Phone Number [facility] [place] [address] * (ABNORMAL) Hemogram (11/02/2019 11:03 PM EDT) White Blood Cell 8.6 4.0 - 9.5 x10(3)/[facility] LABORATORY Red Blood Cell 4.29(L) 4.58 - 5.54 x10(6)/[facility] LABORATORY Hemoglobin 13.2(L) 13.7 - 16.5 gm/dL [facility] Hematocrit 40.2(L) 40.5 - 48.5 % [facility] Mean Cell Volume 93.7(H) 82.9 - 93.1 fL [facility] Mean Cell Hemoglobin 30.8 27.5 - 32.1 pg [facility] Mean Cell Hemoglobin Concentration 32.8 32.0 - 35.7 gm/dL [facility] Platelet 177 145 - 357 x10(3)/[facility] LABORATORY RDW Standard Deviation 44.3 36.0 - 45.0 [facility] LABORATORY RDW coefficient of variation 13.0 11.4 - 13.8 % [facility] Mean Platelet Volume 10.1 7.6 - 12.9 [facility] LABORATORY NRBC% auto 0.0 % [facility] NRBC Absolute 0.000 0.000 - 0.000 x10(3)/[facility] LABORATORY Blood specimen (specimen) 11/02/2019 11:03 PM EDT 11/02/2019 11:07 PM EDT Narrative Resulting Agency Comment Spec In Lab Maty Mcfadden SURVEY WORKER HEMATOLOGY ORDERABLE S Performing Organization Address City/[facility]/ZIP Co de Phone Number [facility] [place] [address] * APTT (11/02/2019 11:03 PM EDT) Partial Thromboplastin Time 31 25 - 37 sec [facility] Comment: The PTT is NOT appropriate for heparin monitoring. Use the Anti-Xa level for heparin monitoring (HEP UFH) or LMWH monitoring (HEP LMW). A PTT less than 37 seconds generally indicates adequate hemostasis. Blood specimen (specimen) 11/02/2019 11:03 PM EDT 11/02/2019 11:07 PM EDT Narrative Resulting Agency Comment Spec In Lab Maty Mcfadden SURVEY WORKER HEMATOLOGY ORDERABLE S Performing Organization Address [facility] Co de Phone Number [facility] [place] [address] * Prothrombin Time (11/02/2019 11:03 PM EDT) Prothrombin Time 11.4 9.4 - 12.5 sec [facility] International Normalization Ratio 1.0 [facility] Comment: An INR <2.0 indicates [...] Agency Comment Spec In Lab Maty Mcfadden SURVEY WORKER HEMATOLOGY ORDERABLE S Performing Organization Address [facility]/ZIP Co de Phone Number [facility] [place] [address] * CT Head wo Contrast (Generic) (11/02/2019 [...] report, please contact the number below. Maty A Bogdan SURVEY WORKER IMG CT ORDERABLES * POCT Glucose (11/02/2019 7:49 PM EDT) Glucose, POC 133 65 - 199 mg/dL [facility] Comment: Supplemental ranges: <140 mg/dL before meals <180 mg/dL all other times of the day Blood specimen (specimen) 11/02/2019 7:49 PM EDT 11/02/2019 7:49 PM EDT Casey Singh MD POINT OF CARE TEST O RDERAPAMELA [facility] [place] [address] * POCT Glucose (11/02/2019 5:06 PM EDT) Glucose, POC 98 65 - 199 mg/dL [facility] Comment: Supplemental ranges: <140 mg/dL before meals <180 mg/dL all other times of the day Blood specimen (specimen) 11/02/2019 5:06 PM EDT 11/02/2019 5:06 PM EDT Casey Singh MD POINT OF CARE TEST O BENJAMINERAPAMELA Performing Organization Address City/[facility]/ZIP Co de Phone Number [facility] [place] [address] * POCT Glucose (11/02/2019 12:31 PM EDT) Glucose, POC 111 65 - 199 mg/dL [facility] Comment: Supplemental ranges: <140 mg/dL before meals <180 mg/dL all other times of the day Blood specimen (specimen) 11/02/2019 12:31 PM EDT 11/02/2019 12:31 PM EDT Casey Singh MD POINT OF CARE TEST O RDERAPAMELA [facility] [place] [address] * POCT Glucose (11/02/2019 8:06 AM EDT) Pathologist [facility] [place] Glucose, POC 99 65 - 199 mg/dL [facility] Comment: Supplemental ranges: <140 mg/dL before meals <180 mg/dL all other times of the day Blood specimen (specimen) 11/02/2019 8:06 AM EDT 11/02/2019 8:06 AM EDT Casey Singh MD POINT OF CARE TEST O RDERABLES [facility] [place] [address] * Differential, Automated (11/02/2019 1:01 AM EDT) [facility] Neutrophil % 54.8 % [facility] Neutrophil Absolute 4.21 1.70 - 6.10 x10(3)/[facility] LABORATORY Lymph % 29.7 % [facility] Lymphocytes Abs 2.3 0.9 - 3.2 x10(3)/[facility] LABORATORY Monocyte % 9.0 % [facility] Monocyte Abs 0.7 0.3 - 0.9 x10(3)/[facility] LABORATORY Eos % 5.2 % [facility] Eosinophils Abs 0.4 0.0 - 0.4 x10(3)/[facility] LABOR[facility]ORY Basophil % 1.0 % [facility] Baso Absolute 0.1 0.0 - 0.1 x10(3)/[facility] LABORATORY Immature Gran % 0.30 % [facility] Comment: Immature granulocytes(IG's)percentage and absolute count will include metamyelocytes, myelocytes, and promyelocytes. Blood smears from CBCs yielding IG's will be scanned manually for concordance. If this scan disagrees with the automated IG or if promyelocytes are noted, a manual differential will be performed. Immature Gran Absolute 0.02 0.00 - 0.04 x10(3)/[facility] LABORATORY Blood specimen (specimen) 11/02/2019 1:01 AM EDT 11/02/2019 1:14 AM EDT Narrative Resulting Agency Comment Spec In Lab Maty Yovanny Bogdan SURVEY WORKER HEMATOLOGY ORDERABLE S [facility] [place] [address] * (ABNORMAL) Hemogram (11/02/2019 1:01 AM EDT) White Blood Cell 7.7 4.0 - 9.5 x10(3)/[facility] LABORATORY Red Blood Cell 4.36(L) 4.58 - 5.54 x10(6)/mc L [facility] Hemoglobin 13.6(L) 13.7 - 16.5 gm/dL [facility] Hematocrit 40.6 40.5 - 48.5 % [facility] Mean Cell Volume 93.1 82.9 - 93.1 [facility] LAB[facility] Mean Cell Hemoglobin 31.2 27.5 - 32.1 pg [facility] Mean Cell Hemoglobin Concentration 33.5 32.0 - 35.7 gm/dL [facility] Platelet 176 145 - 357 x10(3)/mc L [facility] RDW Standard Deviation 43.7 36.0 - 45.0 [facility] LAB[facility]ORY RDW coefficient of variation 12.7 11.4 - 13.8 % [facility] Mean Platelet Volume 10.2 7.6 - 12.9 [facility] LAB[facility]ORY NRBC% auto 0.0 % [facility] NRBC Absolute 0.000 0.000 - 0.000 x10(3)/ L [facility] Blood specimen (specimen) 11/02/2019 1:01 AM EDT 11/02/2019 1:14 AM EDT Narrative Resulting Agency Comment Spec In Lab Maty A Bogdan SURVEY WORKER HEMATOLOGY ORDERABLE S [facility] [place] [address] * Basic Metabolic Panel (non-fasting) (11/02/2019 1:01 AM EDT) Glucose 88 65 - 199 mg/dL [facility] Comment:Diabetes: >=200 mg/d L plus symptoms Blood Urea Nitrogen 12 10 - 20 mg/dL [facility] Creatinine 1.12 0.80 - 1.50 mg/dL [facility] Sodium 141 135 - 145 mmol/L [facility] Potassium 4.0 3.5 - 5.0 mmol/L [facility] Comment: Please note: ??Patients with WBC >100,000 may have falsely elevated Potassium levels. ??For accurate Potassium quantification in these patients send serum separator tube (gold top) for subsequent determinations. ??Contact the Clinical Chemistry Laboratory if there are any questions. Chloride 107 98 - 107 mmol/L [facility] Carbon Dioxide 26 22 - 31 mmol/L [facility] Anion Gap 8 5 - 15 mmol/L [facility] Calcium 9.1 8.5 - 10.5 mg/dL [facility] Est Glomerular Filtration Rate 65 >=60 mL/min/1. 73 m?? [facility] Comment: The eGFR was calculated using the CKD-EPI equation. As with all creatinine based estimates of kidney function, eGFR values calculated with the CKD-EPI equation are not accurate in patients with acute kidney failure, extremes of body mass or the acutely ill. http://[employer]/[facility]ERnkf eGFR 75 >=60 mL/min/1. 73 m?? [facility] Comment: The eGFR was calculated using the CKD-EPI equation. As with all creatinine based estimates of kidney function, eGFR values calculated with the CKD-EPI equation are not accurate in patients with acute kidney failure, extremes of body mass or the acutely ill. [email or web address]://[employer]/[facility]ERnkf Blood specimen (specimen) 11/02/2019 1:01 AM EDT 11/02/2019 1:14 AM EDT Narrative Resulting Agency Comment Spec In Lab Casey Singh MD CHEMISTRY ORDERABLES [facility] [place] [address] * COVID-19 PCR (11/01/2019 11:17 PM EDT) SARS-CoV-2 RNA (Rapid) Not Detected Not Detected [facility] Comment: This result should be [...] using the Simplexa COVID-19 Direct Assay by [employer] as authorized by the FDA issued Emergency [...] Department of Pathology and Laboratory Medicine at [facility], certified under the Clinical Laboratory Improvement Amendments [...] Information for Healthcare Professionals (https://www.cdc.gov/coronavirus/2019-ncov/hcp/index.html). SARS-CoV-2 Source RN CARE TRANSITION Swab [facility] Nasopharyngeal swab (specimen) 11/01/2019 11:17 PM EDT 11/02/2019 12:04 AM EDT Comment:Symptoms->Surveillan ce Narrative Resulting Agency Comment Spec In Lab Camila Troy MD MICROBIOLOGY - GEN ERAL ORDERABLES Performing Organization Address City/[facility]/ZIP Co de Phone Number [facility] [place] [address] * ABORH Recheck Status (11/01/2019 9:14 PM EDT) ABORH Recheck Order Order Placed [facility] ABORH Type Recheck Complete [facility] Blood specimen (specimen) 11/01/2019 9:14 PM EDT 11/01/2019 9:30 PM EDT Narrative Resulting Agency Comment Spec In Lab Maty A Bogdan SURVEY WORKER BLOOD BANK LAB ORDER EMILIANO Performing Organization Address [facility]/ZIP Co de Phone Number [facility] [place] [address] * Antibody screen (11/01/2019 9:14 PM EDT) Ab Screen Interp Negative [facility] Expires at [id number] on: 11/04/2019 [facility] Blood specimen (specimen) 11/01/2019 9:14 PM EDT 11/01/2019 9:30 PM EDT Narrative Resulting Agency Comment Spec In Lab Maty A Bogdan SURVEY WORKER BLOOD BANK LAB ORDER EMILIANO Performing Organization Address City/[facility]/ZIP Co de Phone Number [facility] [place] [address] * ABO/Rh Typing (11/01/2019 9:14 PM EDT) ABORH Type B Pos [facility] Blood specimen (specimen) 11/01/2019 9:14 PM EDT 11/01/2019 9:30 PM EDT Narrative Resulting Agency Comment Spec In Lab Matyryan Mcfadden SURVEY WORKER BLOOD BANK LAB ORDER EMILIANO Performing Organization Address City/[facility]/ZIP Co de Phone Number [facility] [place] [address] * Gold Tube HOLD (11/01/2019 9:14 PM EDT) [facility] Gold Hold Sample in lab. [facility] Blood specimen (specimen) Venous Draw / Unknown 11/01/2019 9:14 PM EDT 11/01/2019 9:30 PM EDT Maty Mcfadden SURVEY WORKER CHEMISTRY ORDERABLES Performing Organization Address City/[facility]/ZIP Co de Phone Number [facility] [place] [address] * Differential, Automated (11/01/2019 9:14 PM EDT) Pathologist [facility] [place] Neutrophil % 49.4 % [facility] Neutrophil Absolute 3.05 1.70 - 6.10 x10(3)/[facility] LABORAT[facility] Lymph % 35.6 % [facility] Lymphocytes Abs 2.2 0.9 - 3.2 x10(3)/[facility] Monocyte % 8.8 % [facility] Monocyte Abs 0.5 0.3 - 0.9 x10(3)/[facility] Eos % 4.9 % [facility] Eosinophils Abs 0.3 0.0 - 0.4 x10(3)/[facility] Basophil % 1.1 % [facility] Baso Absolute 0.1 0.0 - 0.1 x10(3)/[facility] LAB[facility]ATORY Immature Gran % 0.20 % [facility] Comment: Immature granulocytes(IG's)percentage and absolute count will include metamyelocytes, myelocytes, and promyelocytes. Blood smears from CBCs yielding IG's will be scanned manually for concordance. If this scan disagrees with the automated IG or if promyelocytes are noted, a manual differential will be performed. Immature Gran Absolute 0.01 0.00 - 0.04 x10(3)/[facility] Blood specimen (specimen) 11/01/2019 9:14 PM EDT 11/01/2019 9:29 PM EDT Narrative Resulting Agency Comment Spec In Lab Maty Mcfadden APRN HEMATOLOGY ORDERABLE S Performing Organization Address City/State/[facility] Co de Phone Number [facility] [place] [address] * (ABNORMAL) Hemogram (11/01/2019 9:14 PM EDT) White Blood Cell 6.2 4.0 - 9.5 x10(3)/mc L [facility] Red Blood Cell 4.51(L) 4.58 - 5.54 x10(6)/mc L [facility] Hemoglobin 13.6(L) 13.7 - 16.5 gm/dL [facility] Hematocrit 41.5 40.5 - 48.5 % [facility] Mean Cell Volume 92.0 82.9 - 93.1 [facility]ORY Mean Cell Hemoglobin 30.2 27.5 - 32.1 pg [facility] Mean Cell Hemoglobin Concentration 32.8 32.0 - 35.7 gm/dL [facility] Platelet 185 145 - 357 x10(3)/mc L [facility] RDW Standard Deviation 43.5 36.0 - 45.0 [facility] LAB[facility]ATORY RDW coefficient of variation 12.8 11.4 - 13.8 % [facility] Mean Platelet Volume 10.4 7.6 - 12.9 fL [facility] NRBC% auto 0.0 % [facility] NRBC Absolute 0.000 0.000 - 0.000 x10(3)/mc L [facility] Blood specimen (specimen) 11/01/2019 9:14 PM EDT 11/01/2019 9:29 PM EDT Narrative Resulting Agency Comment Spec In Lab Maty Mcfadden [facility] HEMATOLOGY ORDERABLE S Performing Organization Address [facility] Co de Phone Number [facility] [place] [address] * APTT (11/01/2019 9:14 PM EDT) Partial Thromboplastin Time 30 25 - 37 sec [facility] Comment: The PTT is NOT appropriate for heparin monitoring. Use the Anti-Xa level for heparin monitoring (HEP UFH) or LMWH monitoring (HEP LMW). A PTT less than 37 seconds generally indicates adequate hemostasis. Blood specimen (specimen) 11/01/2019 9:14 PM EDT 11/01/2019 9:29 PM EDT Narrative Resulting Agency Comment Spec In Lab Maty Mcfadden SURVEY WORKER HEMATOLOGY ORDERABLE S Performing Organization Address [facility] de Phone Number [facility] [place] [address] * Prothrombin Time (11/01/2019 9:14 PM EDT) Prothrombin Time 12.4 9.4 - 12.5 sec [facility] International Normalization Ratio 1.1 [facility] Comment: An INR <2.0 indicates [...] Lab Maty Mcfadden CHRIS HEMATOLOGY ORDERABLE S [facility] [place] [address] * Basic Metabolic Panel (non-fasting) (11/01/2019 9:14 PM EDT) Glucose 87 65 - 199 mg/dL [facility] Comment:Diabetes: >=200 mg/d L plus symptoms Blood Urea Nitrogen 14 10 - 20 mg/dL [facility] Creatinine 0.92 0.80 - 1.50 mg/dL [facility] Sodium 138 135 - 145 mmol/L [facility] Potassium 3.9 3.5 - 5.0 mmol/L [facility] Comment: Please note: ??Patients with WBC >100,000 may have falsely elevated Potassium levels. ??For accurate Potassium quantification in these patients send serum separator tube (gold top) for subsequent determinations. ??Contact the Clinical Chemistry Laboratory if there are any questions. Chloride 103 98 - 107 mmol/L [facility] Carbon Dioxide 23 22 - 31 mmol/L [facility] Anion Gap 12 5 - 15 mmol/L [facility] Calcium 9.2 8.5 - 10.5 mg/dL [facility] Est Glomerular Filtration Rate 82 >=60 mL/min/1. 73 m?? [facility] Comment: The eGFR was calculated using the CKD-EPI equation. As with all creatinine based estimates of kidney function, eGFR values calculated with the CKD-EPI equation are not accurate in patients with acute kidney failure, extremes of body mass or the acutely ill. http://[email or web address] eGFR 95 >=60 mL/min/1. 73 m?? [facility] Comment: The eGFR was calculated using the CKD-EPI equation. As with all creatinine based estimates of kidney function, eGFR values calculated with the CKD-EPI equation are not accurate in patients with acute kidney failure, extremes of body mass or the acutely ill. [email or web address] Blood specimen (specimen) 11/01/2019 9:14 PM EDT 11/01/2019 9:29 PM EDT Narrative Resulting Agency Comment Spec In Lab Maty Mcfadden SURVEY WORKER CHEMISTRY ORDERABLES [facility] [place] [address] * Film Library- Storage Only DX Chest (11/01/2019 8:28 PM EDT) Narrative [facility] - 11/01/2019 8:28 PM EDT This exam is auto-finalizing. It's purpose is for storage only. Casey Singh MD IMG FILM LIBRARY ORD ERABLES Performing Organization Address [facility]/State/ZIP Co de Phone Number [place], [place] documented in this encounter Visit Diagnoses [...] Pain, Mild pain (1-3), Give per rectum (AR) if unable to take PO. Do not [...] Given 11/15/2019 8:10 PM EDT 10 mg BUpivacaine-EPINEPHrine 0.25 %-1:200,000 injection ONCE PRN, Starting on Francisca 11/10/19 at 1327, Until Thu11/16/19 at 2010, Intra-Operative (Intra-Procedure), Routine Given 11/10/2019 1:27 PM EDT 5 mLs 19- Surgical Site busPIRone (Buspar) tablet 7.5 mg 7.5 mg, [...] Given 11/15/2019 9:00 AM EDT 40 mg gelatin compressed (GELFOAM) sponge ONCE PRN, Starting on Thu11/10/19 at 1328, Until Thu11/16/19 at 2010, Intra-Operative (Intra-Procedure) Given 11/10/2019 1:28 PM EDT 100 cm 19- Surgical Site glucagon (human recombinant) injection SolR 1 mg [...] Thu11/02/19 at 0024, Until Thu11/16/19 at 2011, Nausea, If multiple antiemetics are ordered, use [...] Routine Given 11/15/2019 8:04 PM EDT 2 tablets thrombin (Bovine) (THROMBINAR) kit ONCE PRN, Starting on Thu11/10/19 at 1328, Until Thu11/16/19 at 2010, Intra-Operative (Intra-Procedure) Given 11/10/2019 1:28 PM EDT 2,000 Units 19- Surgical Site documented in this encounter Active and Recently Administered Medications Times are shown in EDT. Scheduled Medication Order 11/14/2019 11/15/2019 11/16/2019 busPIRone (Buspar) tablet 7.5 mg 7.5 mg, Oral, 2 TIMES DAILY, First dose on Thu11/14/19 at 0415, Until Discontinued, Routine 0356 (Given - Provider: Belgica Goldsimth RN)1344 (JUN Hold - Provider: Admin Adt - Reason: Transfer to a Procedural area)1604 (JUN Unhold - Provider: Admin Adt)204 (Given - Provider: Belgica Goldsmith RN) 0901 (Given - Provider: Margie Knowles, ABIGAIL)2002 (Given [...] Rowe RN) 0834 (Given - Provider: Kary Saeed, ABIGAIL) insulin lispro (HumaLOG) VIAL injection 1-5 Units(Linked [...] Knowles RN) 0834 (Given - Provider: Kary Saeed [...] RN)2044 (Given - Provider: Belgica Goldsmith RN) 09 (Given - Provider: Margie Knowles, ABIGAIL) valproate (DEPACON) 500 mg in sodium chloride 0.9% 55 mL (CANCELED) 500 mg, Intravenous, EVERY 8 HOURS SCHEDULED, First dose (after last modification) on Thu11/12/19 at 1400, Until Discontinued, Administer over 60 Minutes 0557 (New Bag - Provider: Belgica Goldsmith RN)0657 (Stopped - Provider: Belgica Goldsmith RN)1344 (MAR Hold - Provider: Admin Adt - Reason: Transfer to a Procedural area)1400 (Automatically Held - Provider: Admin Adt)1604 (MAR Unhold - Provider: Admin Adt)2106 (New Bag [...] Pain, Mild pain (1-3), Give per rectum (AR) if unable to take PO. Do not exceed 4000 mg acetaminophen per day., Routine 0557 (See Alternative - Provider: Belgica Goldsmith RN)1344 (MAR Hold - Provider: Admin Adt - Reason: Transfer to a Procedural area)1604 (MAR Unhold - Provider: Admin Adt)195 (See Alternative [...] Goldsmith RN)0900 (Given - Provider: Margie Knowles, ABIGAIL) 1216 (Given - Provider: Kary Saeed, ABIGAIL)1735 (Given - Provider: Alice Bourgeois, ABIGAIL) bisacodyL (Dulcolax) suppository 10 mg 10 mg, Rectal, DAILY PRN, Starting on Thu11/04/19 at 0814, Until Thu11/16/19 at 2010, Constipation, Routine 1344 (MAR Hold - Provider: Admin Adt [...] the duration of the active insulin. 1344 (JUN Hold - Provider: Admin Adt - Reason: Transfer to a Procedural area)1604 (JUN Unhold - Provider: Admin Adt) glucagon (human [...] duration of the active insulin., Routine 1344 (MAR Hold - Provider: Admin Adt - Reason: Transfer to a Procedural area)1604 (MAR Unhold - Provider: Admin Adt) glucose (GLUTOSE) [...] of tube = 37.5 grams., Routine 1344 ([facility] Hold - Provider: Admin Adt - Reason: Transfer to a Procedural area)1604 ([facility] Unhold - Provider: Admin Adt) [...] labetalol ineffective after 1 hour., Routine 1344 ([facility] Hold - Provider: Admin Adt - Reason: Transfer to a Procedural area)1437 (Given - Provider: Destiny Rojo RN - Comment: SBP >160)1441 ([facility] Unhold - Provider: Destiny Rojo [...] than 50 beats per minute., Routine 1344 ([facility] Hold - Provider: Admin Adt - Reason: Transfer to a Procedural area)1604 ([facility] Unhold - Provider: Admin Adt) ondansetron (ZOFRAN) injection 4-8 mg(Linked Group 4) 4-8 mg, Intravenous, EVERY 8 HOURS PRN, Starting on Thu11/02/19 at 0024, Until Thu11/16/19 at 2010, Nausea, If multiple antiemetics are ordered, use ondansetron first, prochlorperazine second, and metaclopramide third. Start with 4mg and if ineffective in 30 minutes, give an additional 4mg 1344 ([facility] Hold - Provider: Admin Adt - Reason: Transfer to a Procedural area)1604 ([facility] Unhold - Provider: Admin Adt) [...] minutes, give an additional 4mg, Routine 1344 ([facility] Hold - Provider: Admin Adt - Reason: Transfer to a Procedural area)1604 ([facility] Unhold - Provider: Admin Adt) oxyCODONE (Roxicodone) tablet 10-15 mg (CANCELED) 10-15 mg, Oral, EVERY 4 HOURS PRN, Starting on Thu11/10/19 at 2012, Until Thu11/15/19 at 1224, Pain, severe pain (7-10), Initial dose 10mg. If pain control not adequate in 60 minutes, give additional 5mg, Routine 0557 (Given - Provider: Belgica Goldsmith RN)1344 ([facility] Hold - Provider: Admin Adt - Reason: Transfer to a Procedural area)1604 ([facility] Unhold - Provider: Admin Adt)195 (Given - [...] Until Thu11/16/19 at 2010, Constipation, Routine 1344 ([facility] Hold - Provider: Admin Adt - Reason: Transfer to a Procedural area)1604 (JUN Unhold - Provider: Admin Adt)2042 (Given - [...] Adt)2043 (Given - Provider: Belgica Goldsmith RN) Linked Groups Order Group 1: POCT Fingerstick [...] Thu11/16/19 at 2011, Pain, Mild pain (1-3), Do not exceed 4000 mg acetaminophen per day., Routine Or acetaminophen (Tylenol) suppository 650 mgJump to med 650 mg, Rectal, EVERY 4 HOURS PRN, Starting on Thu11/02/19 at 0024, Until Thu11/16/19 at 2010, Pain, Mild pain (1-3), Give per rectum (AR) if unable to take PO. Do not [...] Routine documented in this encounter Care Teams Agricultural Engineering Technician Relationship Specialty Start Date End Date Shyam Harvey MD PCP - General General Internal Medicine 02/09/1812/21 documented as of this encounter
--- OUTSIDE RECORDS SUMMARY | 2023-12-15 18:11 | XMS_ITS | Encounter Summary ---
Author Organization Formerly [facility], [facility] Address [facility] [place] [address] Care Team Providers Care Wash Operator Name Role Phone Shyam Harvey MD Primary Care Provider Reason for Visit * Auth/Cert Specialty Diagnoses / Procedures Referred By Contadriana t Referred To Contact Diagnoses Subdural hemorrhage SDH (subdural hematoma) SDH WITH MIDLINE SHIFT Procedures EMERGENCY IPI Referral ID Status Reason Start Date Expiration Date Visits Re quested Visits Authorized [id number] 1 1 Encounter Details Date Type Department Care Team (Late st Contact Info) Description 11/10/2019 12:38 PM EDT Anesthesia Event [place] [id number] Alec Tinoco MD [facility] [place] [address] Biju Dubon MD [facility] [place] [address] Anesthesia Record Procedure Summary Procedure Name Responsible Anesthesiologist Anesthesia Start Time Anesthesia Stop Time @CRANI-SUB\EXTRADUR AL HEMATOMA EVAC, BOUCHRA HOLE (WRVU 17.07) (Left: Head) Alec Tinoco MD 11/10/19 1238 11/10/19 1434 Events Date Time Event Comment 11/10/2019 1111 1238 AN Verify 1238 Start 1238 An Start Data 1250 An Induction 1252 An Intubation 1315 Anesthesia Ready 1327 Procedure Start 1420 Extubation/LMA Out 1425 an stop data 1430 Recovery or ICU Handoff Cindy ent care was transferred to the destination unit staff after review of the patient's medical history, current anesthetic/surgical status and plan, according to the Provider Handoff Checklist. 1434 Stop Meds Name Total fentaNYL 100 mcg Propofol 200 mg Rocuronium 70 mg Ondansetron 4 mg ceFAZolin 2 g PHENYLephrine INF 2,680 mcg Sugammadex 200 mg Esmolol 10 mg Labetalol 2.5 mg Lactated Ringers 400 mL Lactated Ringers 100 mL * Agents Name O2 Air N2O Sevoflurane (et) * Blood No blood administrations on file. Lines, Drains, and Airways Type Details Placement Removal (RETIRED) Peripheral IV Line - Single Lumen metacarpal vein (top of hand), left; mitn-aeu-xznkzw catheter system; 16 gauge; Jolenener; 11/11/19; 0556 11/10/19 1306 by 11/11/19 0556 by Uche East RN (RETIRED) Peripheral IV Line - Single Lumen metacarpal vein (top of hand), right; wevg-ivm-kmobjg catheter system; 18 gauge; Hoehner; 11/14/19; 0425 11/10/19 1307 by 11/14/19 0425 by Chrissy Santana RN Incision 11/03/19; 1445; groi n; non-laparascopic puncture (Arterial access for left MMA embolization); 11/10/19; 213211/03/19 1445 by Lucille Stewart RN 11/10/19 2133 by Uche East RN (RETIRED) Peripheral IV Line - Single Lumen 11/05/19; 1741; cephalic vein (lateral side of arm), right; owsd-qaq-thbamp catheter system; 22 gauge, 1 in length; wily meneses, vas; distraction; 0; removed inadvertently, site care per policy/procedure, catheter/device intact; 11/12/19 11/05/19 1741 by Matilde Yan RN 11/12/19 0000 by Belgica Goldsmith RN ETT Mask Ventilation: Ea sy (1); ETT Type: Cuffed, Oral; ETT Size: 8 mm; Mac Blade: 4; Notes: Asleep, Pre-O2; Removal Date: 11/10/19; Removal Time: 1420 11/10/19 1252 by Christine Klein CRNA 11/10/19 1420 by Christine Klein CRNA (RETIRED) Peripheral IV Line - Single Lumen 11/10/19; 1255; metacarpal vein (top of hand), left; ampi-nhc-ropevy catheter system; 16 gauge; Jolenener MDA; no longer indicated; 11/12/19 11/10/19 1255 by Christine Klein CRNA 11/12/19 0000 by Belgica Goldsmith RN (RETIRED) Peripheral IV Line - Single Lumen 11/10/19; 1300; metacarpal vein (top of hand), right; flcx-ooi-acjdpf catheter system; 16 gauge; Hoehner MDA; no longer indicated, site care per policy/procedure, catheter/device intact, removed per policy/procedure; 11/12/19 11/10/19 1300 by Christine Klein CRNA 11/12/19 0000 by Belgica Goldsmith RN Urethral Catheter 11/10/19; 1300; Need for intraoperative urine output monitoring; Prolonged Immobilization; indwelling double lumen catheter; hydrophilic coated; 14; inserted at this facility; 1; 5; 10; other (see comments) (gel in kit); drainage bag to dependent drainage; urethral catheter removed, physician notified, tubing intact, per protocol/policy; 11/10/19; 1419 11/10/19 1300 by Rosalinda Colon RN 11/10/19 1419 by Rosalinda Colon RN Arterial Line 11/10/19; 1312; radi al artery, left; 20 gauge; Christine Klein VENETIAN BLIND CLEANER AND REPAIRER; Sterile Prep; 11/10/19; 204811/10/19 1312 by Christine Klein CRNA 11/10/192048 by Uche East RN Incision 11/10/19; 1328; head ; Dressing; Mepilex x 2; 12/16/21 (LDA cleanup utility RA#[id number]); 1715 (LDA cleanup utility RA#[id number]) 11/10/19 1328 by Rosalinda Colon RN 12/16/21 1715 by Jennifer Bernstein Drain/Device Site 11/10/19; 1358; Left ; subgaleal region; collapsible closed device; 11/13/19 (by MD Louis); 1000 11/10/19 1358 by Rosalinda Colon RN 11/13/19 1000 by Margie Knowles RN documented in this encounter Social History Tobacco Use Types Packs/Day Years Used Date Smoking Tobacco: Former Cigarettes 1 50 1 953 - 2002 Sex and Gender Information Value Date Recorded Sex Assigned at Not on file Gender Identity Not on file Sexual Orientation Not on file documented as of this encounter OR Notes * Anesthesia Postprocedure Evaluation - Alec Tinoco MD - 11/10/2019 3:23 PM EDT Department of Anesthesiology Post-procedure Note Patient: Josue Westbrook Procedure Summary Date: 11/10/19 Room / Location: [facility] MAIN OR Anesthesia Start: 1238 Anesthesia Stop: 1434 Procedure: @CRANI-SUB\EXTRADURAL HEMATOMA EVAC, BOUCHRA HOLE (WRVU 17.07) (Left Head) Diagnosis: (Subdural hematoma) Surgeon: Addy Machado MD Responsible Provider: Alec Tinoco MD Anesthesia Type: Not recorded ASA Status: 4 All Anesthesia Providers: Anesthesiologist: Alec Tinoco MD [employer] BL[employer] CLE[employer]ER AND REPAIRER: Christine Klein CRNA Vitals Value Taken Time BP 148/52 11/10/2019 3:15 PM Temp 36.4 ??C (97.5 ??F) 11/10/2019 2:28 PM Pulse 59 11/10/2019 3:22 PM Resp 22 11/10/2019 3:22 PM SpO2 99 % 11/10/2019 3:22 PM Pain Level Vitals shown include unvalidated device data. Patient Location: PACU/[facility] Level of Consciousness: Awake and Alert Pain Management: Satisfactory Analgesia PONV: None Cardiovascular Status: At Baseline Respiratory Status: At Baseline Postoperative Fluid Status: Intravascular EUvolemia Possible Anesthetic Complications: NONE apparent at time of evaluation Final Primary Anesthesia Type: General (The anesthetic type performed was the same as planned.) Comments: * Anesthesia Preprocedure Evaluation - Alec Tinoco MD - 11/09/2019 10:31 AM EDT Images from the original note were not included. Pre-Anesthesia Evaluation for: Josue Westbrook a 74 y.o. male. Procedure(s): @CRANI-HEMATOMA EVACUATION, SUPRATENTORIAL, SUBDURAL OR [facility] Patient Active Problem List Diagnosis ??? SDH (subdural hematoma) ??? Basal cell carcinoma ??? Tinea pedis Past Medical History: Diagnosis Date ??? Diabetes mellitus ??? Hypertension Past Surgical History: Procedure Laterality Date ??? PRO PERM OCCLUSION/EMBOLIZATION, PERCUT, DIRECTOR RIVER RESTORATION N/A 11/03/2019 @TRANSCATHETER OCCLUSION/EMBOLIZATION FOR TUMOR DESTRUCTION performed by Hussain Christianson MD at [facility] ??? TONSILLECTOMY Social History Tobacco Use ??? Smoking status: Former Smoker Packs/day: 1.00 Years: 50.00 Pack years: 50.00 Types: Cigarettes Last attempt to quit: 2002 Years since quittin.5 Substance Use Topics ??? Alcohol use: Not on file Social History Substance and Sexual Activity Drug Use Not on file No Known Allergies Medications: MAR and/or home medications have been reviewed. Physical Exam: Most Recent Vitals: 11/09/19 1000 BP: Pulse: Resp: Temp: 36.6 ??C (97.9 ??F) SpO2: Body mass index is 26.44 kg/m??. Height: 177.8 cm (5' 10) Weight: 83.6 kg (184 lb 4.9 oz) Airway Assessment: Mallampati: II Cardiovascular Assessment: cardiovascular exam normal Pulmonary Assessment: pulmonary exam normal Dental Assessment: (+) upper dentures Misc Assessment: IV access: Peripheral line Anesthesia Plan: ASA 4 with a(n) intravenous induction 74 year old, 87 kg male initially presented for left MMA embolization due to left subdural hematomawith right sided weakness and some waxing and waning mental status with possible seizures. No seizures have been demonstrated on vEEG. Currently will go back for crani. Mhx of HTN, DM. Prior anesthesia without complications. Mac 3, Gr 2. Will plan on GA with ETT. Biju Dubon PhD, . Anesthesiology CA2. Anesthesiology attending note Patient seen and examined; chart and labs reviewed Agree with above work-up, assessment, and plan ASA 4 GA/ETT; routine monitors plus arterial line and adequate IV access Risks, plans, and procedures discussed with patient who understands and consents; questions and concerns addressed Region - Intracranial (non-vascular) Informed Consent: Anesthetic plan and risks discussed with patient. Use of blood products discussed with patient who consented to blood products. Plan discussed with VENETIAN BLIND CLEANER AND REPAIRER. PAT Clinic Note documented in this encounter Plan of Treatment Not on file documented as of this encounter Visit Diagnoses Not on filedocumented in this encounter Administered Medications Inactive Administered Medications - up to 3 most recent administrations Medication Order MAR Action Action Date Dose Rate Site ceFAZolin (ANCEF) 1g in dextrose 5% 50mL PRN, Starting on Francisca 11/10/19 at 1331, Until Francisca 11/10/19 at 1434, Administer over 30 Minutes, Anesthesia Intra-op Given 11/10/2019 1:31 PM EDT 2 g esmoloL (BREVIBLOC) injection PRN, Starting on Francisca 11/10/19 at 1410, Until Francisca 11/10/19 at 1434, Anesthesia Intra-op, Routine Given 11/10/2019 2:10 PM EDT 10 mg fentaNYL 50 mcg/mL multi-dose injection PRN, Starting on Francisca 11/10/19 at 1249, Until Francisca 11/10/19 at 1434, Anesthesia Intra-op, Routine Given 11/10/2019 12:49 PM EDT 100 mcg labetalol (NORMODYNE,TRANDATE) multi-dose injection PRN, Starting on Francisca 11/10/19 at 1412, Until Francisca 11/10/19 at 1434, Anesthesia Intra-op, Routine Given 11/10/2019 2:12 PM EDT 2.5 mg lactated ringers infusion CONTINUOUS PRN, Starting on Francisca 11/10/19 at 1238, Until Francisca 11/10/19 at 1434, Anesthesia Intra-op New Bag 11/10/2019 12:38 PM EDT lactated ringers infusion CONTINUOUS PRN, Starting on Francisca 11/10/19 at 1300, Until Francisca 11/10/19 at 1434, Anesthesia Intra-op New Bag 11/10/2019 1:00 PM EDT ondansetron (ZOFRAN) injection PRN, Starting on Francisca 11/10/19 at 1407, Until Francisca 11/10/19 at 1434, Anesthesia Intra-op, Routine Given 11/10/2019 2:07 PM EDT 4 mg PHENYLephrine (LONG-SYNEPHRINE) 20 mg in sodium chloride 250 mL (standard ADULT & Pedi greater than 20kg) infusion CONTINUOUS PRN, Starting on Francisca 11/10/19 at 1259, Until Francisca 11/10/19 at 1434, Anesthesia Intra-op, Routine New Bag 11/10/2019 12:59 PM EDT 40 mcg/min 30 mL/hr propofol (DIPRIVAN) 10 mg/mL bolus injection (Anesthesia) PRN, Starting on Francisca 11/10/19 at 1250, Until Francisca 11/10/19 at 1434, Anesthesia Intra-op Given 11/10/2019 12:50 PM EDT 200 mg rocuronium (ZEMURON) multi-dose injection PRN, Starting on Francisca 11/10/19 at 1323, Until Francisca 11/10/19 at 1434, Anesthesia Intra-op, Routine Given 11/10/2019 1:23 PM EDT 20 mg Given 11/10/2019 12:51 PM EDT 50 mg sugammadex (BRIDION) 100 mg/mL injection PRN, Starting on Francisca 11/10/19 at 1410, Until Francisca 11/10/19 at 1434, Anesthesia Intra-op, Routine Given 11/10/2019 2:10 PM EDT 200 mg documented in this encounter Care Teams Wash Operator Relationship Specialty Start Date End Date Shyam Harvey MD PCP - General General Internal Medicine 02/09/18 9/3 documented as of this encounter
--- OUTSIDE RECORDS SUMMARY | 2023-12-15 18:11 | XMS_ITS | Encounter Summary ---
Author Organization [facility] Address [facility] [place] [address] Care Team Providers Care Migration Specialist Name Role Phone Shyam Harvey MD Primary Care Provider [phone] Reason for Visit * Auth/Cert Specialty Diagnoses / Procedures Referred By Contac t Referred To Contact Diagnoses Subdural hemorrhage SDH (subdural hematoma) SDH WITH MIDLINE SHIFT Procedures EMERGENCY IPI Referral ID Status Reason Start Date Expiration Date Visits Re quested Visits Authorized [id number] 1 1 Encounter Details Date Type Department Care Team (Late st Contact Info) Description 11/03/2019 1:53 PM [place] [address] Sujey Rebolledo MD [facility] [place] [address] Eliane Nath MD [facility] [place] [address] Anesthesia Record Procedure Summary Procedure Name Responsible Anesthesiologist Anesthesia Start Time Anesthesia Stop Time @TRANSCATHETER OCCLUSION/EMBOLIZATIO N FOR TUMOR DESTRUCTION (WRVU 20.12) Sujey Rebolledo MD 11/03/19 1353 11/03/19 1740 Events Date Time Event Comment 11/03/2019 1224 1353 AN Verify 1353 Start 1353 An Start Data 1408 An Induction 1411 An Intubation 1421 Anesthesia Ready 1709 Extubation/LMA Out 1713 an stop data 1726 Recovery or ICU Handoff Cidny ent care was transferred to the destination unit staff after review of the patient's medical history, current anesthetic/surgical status and plan, according to the Provider Handoff Checklist. 1740 Stop Meds Name Total fentaNYL 150 mcg IV Lidocaine 50 mg Propofol 170 mg Rocuronium 70 mg PHENYLephrine 160 mcg PHENYLephrine INF 4,200 mcg niCARdipine INF 1.92 mg Lidocaine 4% LTA 3 mL niCARdipine 0.4 mg Dexmedetomidine 8 mcg Lactated Ringers 400 mL * Agents Name O2 Air N2O Sevoflurane (et) Isoflurane (et) * Blood No blood administrations on file. Lines, Drains, and Airways Type Details Placement Removal (RETIRED) Peripheral IV Line - Single Lumen 11/01/19; (ORDER EXPEDITER at OSH); median cubital vein (antecubital fossa), right; flqt-arn-elymzy catheter system; 18 gauge; OSh; 11/03/19; 214511/01/19 0000 by Alissa Garnica, NRP 11/03/19 2146 by Eliot Marie RN Drain/Device Site 11/02/19; 1200; Left ; frontal region; Chhaya Louis; Sterile prep and drape, Sterile technique; Lidocaine 1%; Awake; 11/07/19; 1125 11/02/19 1200 by Krystal Hernandez RN 11/07/19 1125 by Enoc Zhao RN ETT Mask Ventilation: Ad junct (2); ETT Type: Cuffed; ETT Size: 7.5 mm; Mac Blade: 3; Notes: Asleep, Pre-O2, RSI; Attempts: 1; Laryngoscopy Grade: 2; ETT Placement Verified By: Auscultation, Capnometry, Visual; Secured at Teeth: 23 cm; Removal Date: 11/03/19; Removal Time: 17011/03/19 1416 by Sujey Rebolledo MD 11/03/19 1709 by Sujey Rebolledo MD Urethral Catheter 11/03/19; 1420; Need for intraoperative urine output monitoring, Surgery longer than 2 hours; Acute urinary retention; indwelling double lumen catheter; 100% silicone; 14; inserted at this facility; 1; 10; 10; none; drainage bag to dependent drainage; 11/04/19; 1210 11/03/19 1420 by Lucille Stewart RN 11/04/19 1210 by Adia Ga, RN (RETIRED) Peripheral IV Line - Single Lumen 11/03/19; 1429; metacarpal vein (top of hand), left; dsal-reu-tihfay catheter system; 20 gauge; 2; metacarpal vein (top of hand), left; removed per policy/procedure, site care per policy/procedure, site symptomatic, catheter/device intact; 11/05/19; 1854 11/03/19 1429 by Sujey Rebolledo MD 11/05/19 185 by Nilesh Oh, RN Arterial Line 11/03/19; 1429; radi al artery, left; 20 gauge; Sterile Prep, Sterile Gloves; no longer indicated, removed per policy, catheter intact; 11/03/19; 202911/03/19 1429 by Sujey Rebolledo MD 11/03/192029 by Savi Gibbs RN Incision 11/03/19; 1445; ana n; non-laparascopic puncture (Arterial access for left MMA embolization); 11/10/19; 213211/03/19 1445 by Lucille Stewart RN 11/10/192132 by Uche East RN documented in this encounter Social History Tobacco Use Types Packs/Day Years Used Date Smoking Tobacco: Former Cigarettes 1 50 1 953 - 2002 Sex and Gender Information Value Date Recorded Sex Assigned at Not on file Gender Identity Not on file Sexual Orientation Not on file documented as of this encounter OR Notes * Anesthesia Preprocedure Evaluation - Sujey Rebolledo MD - 11/03/2019 11:20 AM EDT Pre-Anesthesia Evaluation for: Josue Westbrook a 74 y.o. male. Procedure(s): @TRANSCATHETER OCCLUSION/EMBOLIZATION FOR TUMOR DESTRUCTION Patient Active Problem List Diagnosis ??? SDH (subdural hematoma) ??? Basal cell carcinoma ??? Tinea pedis Past Medical History: Diagnosis Date ??? Diabetes mellitus ??? Hypertension Past Surgical History: Procedure Laterality Date ??? TONSILLECTOMY Social History Tobacco Use ??? [...] been reviewed. Physical Exam: Most Recent Vitals: 11/03/19 1000 BP: 120/57 Pulse: (!) 48 Resp: 15 Temp: 36 ??C (96.8 ??F) SpO2: 95% Body mass index is 27.49 kg/m??. Height: 177.8 cm (5' 10) Weight: 86.9 kg (191 lb 9.3 oz) Airway Assessment: Mallampati: II TM distance: >3 FB Neck ROM: full Cardiovascular Assessment: Rhythm: regular Rate: normal Pulmonary Assessment: (-) wheezes Dental Assessment: (+) upper dentures Misc Assessment: IV access: Peripheral line Anesthesia Plan: ASA 3 general, with a(n) intravenous induction Josue Westbrook is a 74 year old, 87 kg male presenting for left MMA embolization. His currently admitted for a left subdural hematoma with right sided weakness and some waxing and waning mental status with possible seizures. No seizures have been demonstrated on vEEG. A subdural drain was placed 11/01 and is draining a small amount on bulb suction. No airway or anesthetic history in EMR. Last wbc, hgb, hct plt 11/03/19 0526 WBC 7.4 HGB 13.7 HCT 41.8 Last 3 Lytes 11/03/19 11/02/19 11/01/19 0526 0101 2114 NA 140 141 138 K 4.3 4.0 3.9 CL 106 107 103 CO2 24 26 23 BUN 13 12 14 CREATININE 0.99 1.12 0.92 Last 3 LFTs No results for input(s): AST, ALT, ALKPHOS, BILITOT, BILIDIR in the last 7068 hours. Last 3 Coags 11/02/19 11/01/19 2303 2114 PT 11.4 12.4 INR 1.0 1.1 PTT 31 30 Plan: GETA with arterial line pre-induction. Adequate PIV access. Consent obtained by phone from daughter, as patient was rather drowsy as he had just received Ativan and they were starting a subdural drain placement procedure. The patient's daughter was informed of the risks, benefits and alternatives of anesthesia. This wasdiscussed with the patient as well. These risks included, but were not limited to, post-operative nausea and/or vomiting, pain, sore throat, dental/lip injury, and other rare but serious complications such as cardiac instability/arrest, neurologic event, awareness, severe allergic reactions, position-related nerve injuries, and need blood transfusions. All questions sought and answered. Region - Intracranial (vascular) Informed Consent: Anesthetic plan and risks discussed with patient. Use of blood products discussed with patient who consented to blood products. Plan discussed with attending. PAT Clinic Note documented in this encounter Plan of Treatment Not on file documented as of this encounter Visit Diagnoses Not on filedocumented in this encounter Administered Medications Inactive Administered Medications - up to 3 most recent administrations Medication Order MAR Action Action Date Dose Rate Site dexmedetomidine (PRECEDEX) injection PRN, Starting on Francisca 11/03/19 at 1734, Until Francisca 11/03/19 at 1751, Anesthesia Intra-op, Routine Given 11/03/2019 5:34 PM EDT 8 mcg fentaNYL 50 mcg/mL multi-dose injection PRN, Starting on Francisca 11/03/19 at 1406, Until Francisca 11/03/19 at 1750, Anesthesia Intra-op, Routine Given 11/03/2019 5:50 PM EDT 50 mcg Given 11/03/2019 5:30 PM EDT 50 mcg Given 11/03/2019 2:06 PM EDT 50 mcg lactated ringers infusion CONTINUOUS PRN, Starting on Francisca 11/03/19 at 1402, Until Francisca 11/03/19 at 1750, Anesthesia Intra-op New Bag 11/03/2019 2:02 PM EDT lidocaine (PF) (XYLOCAINE) 100 mg/5 mL (2 %) injection PRN, Starting on Francisca 11/03/19 at 1408, Until Francisca 11/03/19 at 1750, Anesthesia Intra-op, Routine Given 11/03/2019 2:08 PM EDT 50 mg lidocaine (XYLOCAINE) 4 % external solution PRN, Starting on Francisca 11/03/19 at 1410, Until Francisca 11/03/19 at 1750, Anesthesia Intra-op Given 11/03/2019 2:10 PM EDT 3 mLs niCARdipine (CARDENE) 0.5 mg/mL IV infusion (Anesthesia) CONTINUOUS PRN, Starting on Francisca 11/03/19 at 1435, Until Francisca 11/03/19 at 1750, Anesthesia Intra-op Rate/Dose Change 11/03/2019 5:07 PM EDT 3 mg/hr 6 mL/hr Restarted 11/03/2019 5:01 PM EDT 1 mg/hr 2 mL/hr New Bag 11/03/2019 2:29 PM EDT 2 mg/hr 4 mL/hr niCARdipine (CARDENE) injection PRN, Starting on Francisca 11/03/19 at 1415, Until Francisca 11/03/19 at 1750, Anesthesia Intra-op, Routine Given 11/03/2019 2:30 PM EDT 0.2 mg Given 11/03/2019 2:15 PM EDT 0.2 mg PHENYLephrine (LONG-SYNEPHRINE) 20 mg in sodium chloride 250 mL (standard ADULT & Pedi greater than 20kg) infusion CONTINUOUS PRN, Starting on Francisca 11/03/19 at 1423, Until Francisca 11/03/19 at 1750, Anesthesia Intra-op, Routine Rate/Dose Change 11/03/2019 3:38 PM EDT 30 mcg/min 22.5 mL/hr Rate/Dose Change 11/03/2019 3:37 PM EDT 40 mcg/min 30 mL/h r Rate/Dose Change 11/03/2019 3:28 PM EDT 20 mcg/min 15 mL/h r PHENYLephrine in NS (PF) (LONG-SYNEPHRINE) 0.8 mg/10 mL (80 mcg/mL) multi-dose injection Syrg PRN, Starting on Francisca 11/03/19 at 1417, Until Francisca 11/03/19 at 1750, Anesthesia Intra-op, Routine Given 11/03/2019 2:19 PM EDT 80 mcg Given 11/03/2019 2:17 PM EDT 80 mcg propofol (DIPRIVAN) 10 mg/mL bolus injection (Anesthesia) PRN, Starting on Francisca 11/03/19 at 1408, Until Francisca 11/03/19 at 1750, Anesthesia Intra-op Given 11/03/2019 2:10 PM EDT 50 mg Given 11/03/2019 2:08 PM EDT 120 mg rocuronium (ZEMURON) multi-dose injection PRN, Starting on Francisca 11/03/19 at 1408, Until Francisca 11/03/19 at 1750, Anesthesia Intra-op, Routine Given 11/03/2019 2:08 PM EDT 70 mg documented in this encounter Care Teams Migration Specialist Relationship Specialty Start Date End Date Shyam Harvey MD PCP - General General Internal Medicine 02/09/18/ documented as of this encounter
--- OUTSIDE RECORDS SUMMARY | 2023-12-15 18:12 | XMS_ITS | Encounter Summary ---
Author Organization [facility] Address [address] [place] [address] Care Team Providers Care Wet Silk Hanger Name Role Phone Unknown, Provider Primary Care Provider [phone] Encounter Details Date Type Department Care Team (Late st Contact Info) Description 08/20/2022 Lab Requisition [facility] Pathology & Laboratory Medicine - [facility] [address] [place] [address] Outr Resulting Lab, Provider Social History Tobacco Use Types Packs/Day Years Used Date Smoking Tobacco: Never Assessed Sex and Gender Information Value Date Recorded Sex Assigned at Not on file Gender Identity Not on file Sexual Orientation Not on file documented as of this encounter Plan of Treatment Not on file documented as of this encounter Procedures Procedure Name Priority Date/Time Associated Diagnosis Comments PSA TOTAL, DIAGNOSTIC Routine 08/20/2022 12:47 EDT documented in this encounter Results * (ABNORMAL) PSA TOTAL, DIAGNOSTIC (08/20/2022 12:47 EDT) PSA 8.8(H) <=6.5 ng/mL 08/20/2022 22:12 EDT [facility] Blood VENOUS BLOOD / Unknown 08/20/2022 12:47 EDT 08/20/2022 21:21 EDT Narrative [facility] - 08/20/2022 22:12 EDT NOTE: Serum PSA concentration should not be interpreted as absolute evidence for the presence or absence of malignant disease. Assayed on Siemens ADVIA GoWorkaBitaur XPT using chemiluminescent technology.??Values obtained by using different assay methods cannot be used interchangeably. Provider Outr Resulting Lab CHEMISTRY & BLOOD GAS ORDERABLES [facility] [address] [place] [address] documented in this encounter Visit Diagnoses Not on filedocumented in this encounter Care Teams Wet Silk Hanger Relationship Specialty Start Date End Date Unknown, Provider, PCP - General 08/20/09 documented as of this encounter
--- OUTSIDE RECORDS SUMMARY | 2023-12-15 18:12 | XMS_ITS | Encounter Summary ---
Author Organization [facility] Address [address] [place] [address] Care Team Providers Care Tank Truck Milk Receiver Name Role Phone Unknown, Provider Primary Care Provider [phone] Encounter Details Date Type Department Care Team (Late st Contact Info) Description 01/19/[address] [facility] Pathology & Laboratory Medicine - [facility] [address] [place] [address] Outr Resulting Lab, Provider Social History Tobacco [...] Associated Diagnosis Comments PSA TOTAL, DIAGNOSTIC Routine 01/19/2020 13:45 EDT documented in this encounter Results * (ABNORMAL) PSA TOTAL, DIAGNOSTIC (01/19/2020 13:45 EDT) PSA 7.1(H) 0.0 - 6.5 ng/mL 01/19/2020 21:48 EDT [facility] Blood VENOUS BLOOD / Unknown 01/19/2020 13:45 EDT 01/19/2020 20:50 EDT Narrative [facility] - 01/19/2020 21:48 EDT NOTE: Serum PSA concentration should not be interpreted as absolute evidence for the presence or absence of malignant disease. Assayed on Siemens ADVIA Centaur XPT using chemiluminescent technology.??Values obtained by using different assay methods cannot be used interchangeably. Provider Outr Resulting Lab CHEMISTRY & BLOOD GAS ORDERABLES [facility] [address] [place] [address] documented in this encounter Visit Diagnoses Not on filedocumented in this encounter Care Teams Tank Truck Milk Receiver Relationship Specialty Start Date End Date Unknown, Provider, PCP - General 08/20/09 documented as of this encounter
--- OUTSIDE RECORDS SUMMARY | 2023-12-15 18:12 | XMS_ITS | Encounter Summary ---
Author Organization [facility] Address [address] [place] [address] Care Team Providers Care Television Tube Inspector Name Role Phone Unknown, Provider Primary Care Provider Encounter Details Date Type Department Care Team (Late st Contact Info) Description 08/20/2009 Results Only [facility] Laboratory Services - [facility] ([facility]) [address] [place], [place] [id number] Medardo Pabon MD [address] [place], [place] [id number] Social History Tobacco Use Types Packs/Day Years Used Date Smoking Tobacco: Never Assessed Sex and Gender Information Value Date Recorded Sex Assigned at Not on file Gender Identity Not on file Sexual Orientation Not on file documented as of this encounter Plan of Treatment Not on file documented as of this encounter Procedures Procedure Name Priority Date/Time Associated Diagnosis Comments SURGICAL PATHOLOGY Routine 08/20/2009 0:00 EDT documented in this encounter Results * SURGICAL PATHOLOGY (08/20/2009 0:00 EDT) Pathology Report: SURGICAL PATHOLOGY REPORT ? Reports generated via electronic interface contain original data; ? however they are lacking the format of the original report. ? Caution should be taken when reading/interpreti ng unformatted reports. ? Name: ? WESTBROOK, JOSUE F ? Accession #: ? [id number] ? : ? 1945 (Age: 63) ??M ? Collect Date: ? 08/20/2009 ? Location: ? [facility] ? Receive Date: ? 08/20/2009 ? Provider: MEDARDO WALKO MD ? Copy to: CORINNE F BERNARDO DO ? Final Pathologic Diagnosis: ? A. ?Colon, descending, ? lipoma, biopsies: ? 1. ?Colonic mucosa with small lymphoid aggregate and mild melanosis ? coli. ? - No evidence for lipoma. ??See comment. ? B. ?? Rectum, polypectomy: ?1. ?? Rectal mucosa with surface hyperplastic changes. ? Comment: ? Deeper levels of tissue were reviewed from specimen (A). ??(Dr. Arenas)/mms ? Document reviewed and electronically signed by: ? Kristian Arenas MD ? Report ??Date: 08/27/2009 13:59 ? By the signature above, the attending physician certifies that he/she has ? personally conducted a gross and/or microscopic examination of the described ? specimens and rendered or confirmed the above diagnosis. ? Specimen(s) Received: ? A. ? Descending colon ? lipoma (#1) ? B. ? Rectal polyp (#2) ? Clinical History: ? Colorectal screen ? Gross Description: ? Received in [facility]'s fixative labelled Josue Westbrook and #1 ? descending colon lipoma is a 0.6 x 0.2 x 0.1 cm biopsy. The specimen is ? submitted intact as (A). ? Received in [facility]'s fixative labelled Josue Westbrook and #2 ??rectal polyp are two biopsies measuring 0.3 x 0.3 x 0.1 cm and 0.4 x 0.2 x 0.1 cm. ??The ? specimens are submitted intact as (B). ??(Kemi Blakely)/mms ? End of Report ? [facility] 08/20/2009 08/20/2009 16: 37 EDT Medardo Pabon MD PATHOLOGY ORDERABLES [facility] [address] [place] [address] documented in this encounter Visit Diagnoses Not on filedocumented in this encounter Care Teams Television Tube Inspector Relationship Specialty Start Date End Date Unknown, Provider, PCP - General 08/20/09 documented as of this encounter
--- OUTSIDE RECORDS SUMMARY | 2023-12-15 18:12 | XMS_ITS | Encounter Summary ---
Author Organization [facility] Address [address] [place] [address] Care Team Providers Care Claims Collector Name Role Phone Unknown, Provider Primary Care Provider [phone] Encounter Details Date Type Department Care Team (Late st Contact Info) Description 01/25/2021 Lab Requisition [facility] Pathology & Laboratory Medicine - [facility] [address] [place] [address] Outr Resulting Lab, Provider Social History Tobacco [...] Associated Diagnosis Comments PSA TOTAL, DIAGNOSTIC Routine 01/25/2021 12:50 EDT documented in this encounter Results * PSA TOTAL, DIAGNOSTIC (01/25/2021 12:50 EDT) PSA 6.0 0.0 - 6.5 ng/mL 01/25/2021 22:19 EDT [facility] Blood VENOUS BLOOD / Unknown 01/25/2021 12:50 EDT 01/25/2021 21:21 EDT Narrative [facility] - 01/25/2021 22:19 EDT NOTE: Serum PSA concentration should not be interpreted as absolute evidence for the presence or absence of malignant disease. Assayed on Siemens ADVIA Canopiaur XPT using chemiluminescent technology.??Values obtained by using different assay methods cannot be used interchangeably. Provider Outr Resulting Lab CHEMISTRY & BLOOD GAS ORDERABLES [facility] [address] [place] [address] documented in this encounter Visit Diagnoses Not on filedocumented in this encounter Care Teams Claims Collector Relationship Specialty Start Date End Date Unknown, Provider, PCP - General 08/20/09 documented as of this encounter
--- OUTSIDE RECORDS SUMMARY | 2023-12-15 18:12 | XMS_ITS | Encounter Summary ---
Author Organization [facility] [place] [address] Care Team Providers Care Gas Blender Name Role Phone Shyam Harvey MD Primary Care Provider Encounter Details Date Type Department Care Team (Late st Contact Info) Description 11/01/2019 8:30 PM EDT Ancillary Procedure [place] [id number] Social History Tobacco Use Types Packs/Day Years Used Date Smoking Tobacco: Former Cigarettes 1 50 1 073 - 2002 Sex and Gender Information Value Date Recorded Sex Assigned at Not on file Gender Identity Not on file Sexual Orientation Not on file documented as of this encounter Plan of Treatment Not on file documented as of this encounter Procedures Procedure Name Priority Date/Time Associated Diagnosis Comments FILM LIBRARY STORAGE ONLY DX CHEST STAT 11/01/2019 8:28 PM EDT documented in this encounter Results * Film Library- Storage Only DX Chest (11/01/2019 8:28 PM EDT) Narrative [facility] - 11/01/2019 8:28 PM EDT This exam is auto-finalizing. It's purpose is for storage only. Casey Singh MD IMG FILM LIBRARY ORD ERABLES [place], [place] documented in this encounter Visit Diagnoses Not on filedocumented in this encounter Care Teams Gas Blender Relationship Specialty Start Date End Date Shyam Harvey MD PCP - General General Internal Medicine 02/09/18 9/3 documented as of this encounter
--- OUTSIDE RECORDS SUMMARY | 2023-12-15 18:12 | XMS_ITS | Encounter Summary ---
Author Organization [facility] [place] [address] Care Team Providers Care Speech Language Pathology Assistant Name Role Phone Abdirahman Reaves DO Primary Care Provider [phone] Reason for Visit * Reason Comments Skin Check Encounter Details Date Type Department Care Team (Late st Contact Info) Description 07/24/2014 4:30 PM EDT Office Visit Dermatology at [address] [phone] Khanh Bose MD [address] [place] [address] RD, [address] [address] Basal cell carcinoma; Tinea pedis Discharge Disposition: Home Social History Tobacco Use Types Packs/Day Years Used Date Smoking Tobacco: Never Assessed Sex and Gender Information Value Date Recorded Sex Assigned at Not on file Gender Identity Not on file Sexual Orientation Not on file documented as of this encounter Progress Notes * Khanh Boes MD - 07/24/2014 6:44 PM EDT Problem: Right medial cheek lesion. Clovis is a 68-year-old gentleman who for about the last year and a half has noticed a slow-growing mole on his right medial cheek. He would like to have this checked. He is referred by Dr. Reaves. Physical examination reveals a pearly nodule, 1 cm in diameter, on the right medial check. Additionally, he has tinea pedis that has been a chronic problem underneath the fifth and fourth toes of his right foot. Assessment and Plan: Tinea pedis. a. Part of the problem is that his toes are chronically closed and tight against the foot itself with minimal moisture evaporation here. b. I recommended a trial of Spectazole cream applying on a b.i.d. basis; 15 grams dispensed with two refills. c. We also discussed using a cotton wick or similar approach to keep the toes to let air better get to this area. 2. BCCA, right medial cheek. a. After obtaining informed patient consent, the site was anesthetized and shave C and D times three performed. b. Triple antibiotic ointment and Band-Aid placed. Wound care instructions and supplies given. c. After C and D, the site measured 1.2 cm in diameter. d. Return to clinic in three months for repeat check. COPY: Abdirahman Reaves D.O. documented in this encounter Plan of Treatment Not on file documented as of this encounter Visit Diagnoses Diagnosis Basal cell carcinoma Basal cell carcinoma of skin, site unspecified Tinea pedis Dermatophytosis of foot documented in this encounter Care Teams Speech Language Pathology Assistant Relationship Specialty Start Date End Date Abdirahman Reaves DO [address] [place] [address] PCP - General 03/12/10 02/08/18 documented as of this encounter
--- OUTSIDE RECORDS SUMMARY | 2023-12-15 18:12 | XMS_ITS | Encounter Summary ---
Author Organization [facility] Address [address] [place] [address] Care Team Providers Care Vp Global Marketing Solutions Name Role Phone Unknown, Provider Primary Care Provider Encounter Details Date Type Department Care Team (Late st Contact Info) Description 11/01/2019 Lab Requisition [facility] Pathology & Laboratory Medicine - [facility] [address] [place] [address] Outr Resulting Lab, Provider Social History Tobacco [...] Procedure Name Priority Date/Time Associated Diagnosis Comments ZZCOVID-19 TEST [facility] LAB PCR Today 11/01/2019 14:25 EDT COVID-19 TESTING Routine 11/01/2019 14:2 5 EDT documented in this encounter Results * COVID-19 TEST [facility] LAB PCR (11/01/2019 14:25 EDT) Swab ENTIRE NASOPHARYNX / Unknown 11/01/2019 14:25 EDT 11/01/2019 21:03 EDT Provider Outr Resulting Lab MICROBIOLOGY - GENERAL ORDERABLES [facility] [address] [place] [address] * COVID-19 TESTING (11/01/2019 14:25 EDT) COVID-19 rt-PCR Result Negative Negative 11/02/2019 0:18 EDT [facility] Comment: This test has not been FDA cleared or approved. This test has been authorized by FDA under an EUA for use by authorized laboratories. This test has been authorized only for detection of nucleic acid from 2019-nCoV, not for any other viruses or pathogens. This test is only authorized for the duration of the declaration that circumstances exist justifying the authorization of emergency use of in vitro diagnostic tests for detection and/or diagnosis of 2019-nCoV under section 564(b)(1) of Act, 21 U.S.C ?? 360bbb-3(b) (1), unless the authorization is terminated or revoked sooner. Negative results do not preclude 2019-nCoV infection and should not be used as the sole basis for treatment or other patient management decisions. Negative results must be combined with clinical observations, patient history, and epidemiological information. Performed on the BrainRushher Fusion instrument Performing Lab [facility] 11/02/2019 0:18 EDT [facility] Swab 11/01/2019 14:2 5 EDT 11/01/2019 21:03 EDT Provider Outr Resulting Lab MICROBIOLOGY - GENERAL ORDERABLES [facility] [address] [place] [address] documented in this encounter Visit Diagnoses Not on filedocumented in this encounter Additional Health Concerns Infection Onset Date Last Indicated Resolved Time R/O COVID-19 11/01/2019 11/01/2019 11/06/2019 22:1 7 EDT documented as of this encounter Care Teams Vp Global Marketing Solutions Relationship Specialty Start Date End Date Unknown, Provider, PCP - General 08/20/09 documented as of this encounter
--- OUTSIDE RECORDS SUMMARY | 2023-12-15 18:12 | XMS_ITS | Encounter Summary ---
Author Organization [facility] Address [address] [place] [address] Care Team Providers Care Welding Machine Operator Electro Gas Name Role Phone Unknown, Provider Primary Care Provider [phone] Encounter Details Date Type Department Care Team (Late st Contact Info) Description 03/03/2023 Lab Requisition [facility] Pathology & Laboratory Medicine - [facility] [address] [place] [address] Outr Resulting Lab, Provider Social History Tobacco [...] Associated Diagnosis Comments PSA TOTAL, DIAGNOSTIC Routine 03/03/2023 12:55 EST documented in this encounter Results * (ABNORMAL) PSA TOTAL, DIAGNOSTIC (03/03/2023 12:55 EST) PSA 11.0(H) <=6.5 ng/mL 03/03/2023 23:06 EST [facility] Blood VENOUS BLOOD / Unknown 03/03/2023 12:55 EST 03/03/2023 21:49 EST Narrative [facility] - 03/03/2023 23:06 EST NOTE: Serum PSA concentration should not be interpreted as absolute evidence for the presence or absence of malignant disease. Assayed on Siemens ADVIA Mango-Mateaur XPT using chemiluminescent technology.??Values obtained by using different assay methods cannot be used interchangeably. Provider Outr Resulting Lab CHEMISTRY & BLOOD GAS ORDERABLES [facility] [address] [place] [address] documented in this encounter Visit Diagnoses Not on filedocumented in this encounter Care Teams Welding Machine Operator Electro Gas Relationship Specialty Start Date End Date Unknown, Provider, PCP - General 08/20/09 documented as of this encounter
--- OUTSIDE RECORDS SUMMARY | 2023-12-15 18:12 | XMS_ITS | Encounter Summary ---
Author Organization [facility] Address [address] [place] [address] Care Team Providers Care Garage Hand Name Role Phone Unknown, Provider Primary Care Provider [phone] Encounter Details Date Type Department Care Team (Late st Contact Info) Description 07/31/2021 Lab Requisition [facility] Pathology & Laboratory Medicine - [facility] [address] [place] [address] Outr Resulting Lab, Provider Social History Tobacco [...] Associated Diagnosis Comments PSA TOTAL, DIAGNOSTIC Routine 07/31/2021 12:15 EDT documented in this encounter Results * (ABNORMAL) PSA TOTAL, DIAGNOSTIC (07/31/2021 12:15 EDT) PSA 8.8(H) <=6.5 ng/mL 07/31/2021 22:29 EDT [facility] Blood VENOUS BLOOD / Unknown 07/31/2021 12:15 EDT 07/31/2021 21:13 EDT Narrative [facility] - 07/31/2021 22:29 EDT NOTE: Serum PSA concentration should not be interpreted as absolute evidence for the presence or absence of malignant disease. Assayed on Siemens ADVIA Plumbeeaur XPT using chemiluminescent technology.??Values obtained by using different assay methods cannot be used interchangeably. Provider Outr Resulting Lab CHEMISTRY & BLOOD GAS ORDERABLES [facility] [address] [place] [address] documented in this encounter Visit Diagnoses Not on filedocumented in this encounter Care Teams Garage Hand Relationship Specialty Start Date End Date Unknown, Provider, PCP - General 08/20/09 documented as of this encounter
--- OUTSIDE RECORDS SUMMARY | 2023-12-15 18:12 | XMS_ITS | Referral Summary ---
Author Organization [facility] Address [address] [place] [address] Care Team Providers Care Manager Field Service Name Role Phone Unknown, Provider Primary Care Provider [phone] Social History Tobacco Use Types Packs/Day Years Used Date Smoking Tobacco: Never Assessed Sex and Gender Information Value Date Recorded Sex Assigned at Not on file Gender Identity Not on file Sexual Orientation Not on file Plan of Treatment Not on file Care Teams Manager Field Service Relationship Specialty Start Date End Date Unknown, Provider, PCP - General 08/20/09
--- OUTSIDE RECORDS SUMMARY | 2023-12-15 18:12 | XMS_ITS | Encounter Summary ---
Author Organization [facility] Address [address] [place] [address] Care Team Providers Care Track Equipment Operator Name Role Phone Unknown, Provider Primary Care Provider [phone] Encounter Details Date Type Department Care Team (Late st Contact Info) Description 02/16/2022 Lab Requisition [facility] Pathology & Laboratory Medicine - [facility] [address] [place] [address] Paula Calderon, CORE MACHINE TENDER [address] [place] [address] Encounter for other general examination Social History Tobacco Use Types Packs/Day Years Used Date Smoking Tobacco: Never Assessed Sex and Gender Information Value Date Recorded Sex Assigned at Not on file Gender Identity Not on file Sexual Orientation Not on file documented as of this encounter Plan of Treatment Not on file documented as of this encounter Procedures Procedure Name Priority Date/Time Associated Diagnosis Comments SUSCEPTIBILITY Today 02/10/2022 14:20 EDT Encounter for other general examination documented in this encounter Results * (ABNORMAL) SUSCEPTIBILITY (02/10/2022 14:20 EDT) Organism ID Citrobacter sedlakii(A) VITEK SUSCEPTIBILITY 2 10:41 EDT [facility] Comment: Organism identification performed by client. This organism has a high likelihood of having inducible amp-C beta-lactamase production. Aminopenicillins (amoxicillin, ampicillin), piperacillin-tazobactam, 1st, 2nd, and 3rd generation cephalosporins (ceftazidime, ceftriaxone, and cefpodoxime), and aztreonam should be avoided regardless of in vitro susceptibility. Organism (organism) DISCHARGE / Unknown 02/10/2022 14:20 EDT 02/16/2022 17:49 EDT Narrative Organism Antibiotic Method Susceptibility Citrobacter sedlakii Amikacin VITEK SUSCEPTIBILITY <=2 ug/mL: Susceptible Citrobacter sedlakii Cefepime VITEK SUSCEPTIBILITY <=1 ug/mL: Susceptible Citrobacter sedlakii Ciprofloxacin VITEK SUSCEPTIBILIT Y <=0.25 ug/mL: Susceptible Citrobacter sedlakii Ertapenem VITEK SUSCEPTIBILITY <=0.5 ug/mL: Susceptible Citrobacter sedlakii Gentamicin VITEK SUSCEPTIBILITY <=1 ug/mL: Susceptible Citrobacter sedlakii Meropenem VITEK SUSCEPTIBILITY <=0.25 ug/mL: Susceptible Citrobacter sedlakii Piperacillin Tazobactam VITEK SUSCEPTIBILITY <=4 ug/mL: Susceptible Citrobacter sedlakii Tobramycin VITEK SUSCEPTIBILITY <=1 ug/mL: Susceptible Citrobacter sedlakii Trimethoprim-Sulfam eth oxazole VITEK SUSCEPTIBILITY <=20 ug/mL: Susceptible Paula Calderon CORE MACHINE TENDER MICROBIOLOGY - GENER AL ORDERABLES [facility] [address] [place] [address] documented in this encounter Visit Diagnoses Diagnosis Encounter for other general examination documented in this encounter Care Teams Track Equipment Operator Relationship Specialty Start Date End Date Unknown, Provider, PCP - General 08/20/09 documented as of this encounter
--- OUTSIDE RECORDS SUMMARY | 2023-12-15 18:12 | XMS_ITS | Encounter Summary ---
Author Organization [facility] Address [address] [place] [address] Care Team Providers Care Chief Procurement Officer Name Role Phone Unknown, Provider Primary Care Provider [phone] Encounter Details Date Type Department Care Team (Late st Contact Info) Description 09/03/2023 Lab Requisition [facility] Pathology & Laboratory Medicine - [facility] [address] [place] [address] Outr Resulting Lab, Provider Social History Tobacco [...] Associated Diagnosis Comments PSA TOTAL, DIAGNOSTIC Routine 09/03/2023 13:48 EDT documented in this encounter Results * (ABNORMAL) PSA TOTAL, DIAGNOSTIC (09/03/2023 13:48 EDT) PSA 8.6(H) <=6.5 ng/mL 09/03/2023 22:37 EDT [facility] Blood VENOUS BLOOD / Unknown 09/03/2023 13:48 EDT 09/03/2023 21:22 EDT Narrative [facility] - 09/03/2023 22:37 EDT NOTE: Serum PSA concentration should not be interpreted as absolute evidence for the presence or absence of malignant disease. Assayed on Siemens ADVIA ONDiGO Mobile CRMaur XPT using chemiluminescent technology.??Values obtained by using different assay methods cannot be used interchangeably. Provider Outr Resulting Lab CHEMISTRY & BLOOD GAS ORDERABLES [facility] [address] [place] [address] documented in this encounter Visit Diagnoses Not on filedocumented in this encounter Care Teams Chief Procurement Officer Relationship Specialty Start Date End Date Unknown, Provider, PCP - General 08/20/09 documented as of this encounter
--- OUTSIDE RECORDS SUMMARY | 2023-12-15 18:12 | XMS_ITS | Encounter Summary ---
Author Organization [facility] Address [facility] [place] [address] Care Team Providers Care Net Developer With Wcf Name Role Phone Shyam Harvey MD Primary Care Provider [phone] Reason for Visit * Reason Comments Hospital Transfer SDH * Auth/Cert Specialty Diagnoses / Procedures Referred By Contac t Referred To Contact Diagnoses Subdural hemorrhage SDH (subdural hematoma) SDH WITH MIDLINE SHIFT Procedures EMERGENCY IPI Referral ID Status Reason Start Date Expiration Date Visits Re quested Visits Authorized [id number] 1 1 Encounter Details Date Type Department Care Team (Late st Contact Info) Description 11/03/2019 12:50 PM EDT - 11/03/2019 3:10 [place] [id number] Hussain Christianson MD [facility] [place] [address] @TRANSCATHETER OCCLUSION/EMBOLIZATION FOR TUMOR DESTRUCTION (WRVU 20.12) [...] Sign Reading Time Taken Comments Blood Pressure 123/50 11/03/2019 12:00 PM EDT Pulse 63 11/03/2019 12:00 PM EDT Temperature 36 ??C (96.8 ??F) 11/03/2019 12:00 PM EDT Respiratory Rate 21 11/03/2019 12:00 PM EDT Oxygen Saturation 96% 11/03/2019 12:00 PM EDT Inhaled Oxygen Concentration - - Weight 86.9 kg (191 lb 9.3 oz) 11/02/2019 12:05 AM EDT Height 177.8 cm (5' 10) [...] DM who presented to the ED at [facility] after having anoutpatient CT scan that [...] unsuccessful beside drainage. He underwent crani- for pdero pablo holes on 11/[address] Banks. [...] Local mass effect is stable with unchanged lzgh-sw-edhyn midline shift of 4 mm. The basal [...] pneumocephalus after removal of EVD. Grossly stable uure-ma-fwzmg midline shift. I have personally reviewed theimage(s) [...] with grossly stable 7 to 8 mm xjnf-tk-czwvz midline shift. The suprasellar and basalcisterns remain [...] Advantage 5 Fr STEVO selective catheter, [place] SL-10 microcatheter, Synchro2 microwire, 250 micron Embozene- 1 vial, 6 Guinean Angio-Seal. DESCRIPTION: The procedure, its risks and [...] The guide catheter was removed The 5 Guinean Kalyan catheter was then placed in the [...] this report, please contact the number below. Pending Studies and Lab Data: None Discharge Condition: Stable Discharge to: [facility] Future Appointments and Orders Future Orders Complete By Expires CT Head wo Contrast (Generic) [CMO890 Custom] 12/17/2019 02/16/2020 Process Instructions: Scheduling Instructions: Questions: Clinical information / rai questions: follow-up Left side SDH Do you want to report a missing reason for exam?: Where will study be performed?: [facility] Radiology Stat read required?: Does patient require [...] week of discharge from the hospital. Neurology [phone] Instructions Given to Patient at Discharge: Patient Instructions SURGERY FOR HEAD INJURY DISCHARGE INSTRUCTIONS PRESCRIPTION INSTRUCTIONS: Please see the medication reconciliation list on this discharge summary for a current list of your medications. Stop the use of blood thinning medications until instructed otherwise by your surgical team. This includes medications known as antiplatelet, anticoagulant, and non-steroidal anti-inflammatory (NSAIDs) drugs. Common hsqd-dfb-sfustxg medications which should be avoided include Aspirin, [...] a head injury. - When your health healthcare science specialist says you are well enough, return to your normal activities gradually, not all at once. - Talk with your health healthcare science specialist about when you can return to work. DRIVING: - Do NOT drive until cleared by Neurosurgery. FOLLOW UP PLAN: Incision: [x] Please follow up for suture/staple removal on/around November 23 with your Primary Care Provider or the Neurosurgery GENERAL HARDWARE SALESPERSON/RN. These may also be removed at rehab. Appointments: [x] Please follow up in the Neurosurgery Clinic in 4-6 weeks with a Neurosurgery Associate Provider. Please call the Neurosurgery Office at [phone] if you do not receive a scheduled appointment within two weeks. Imaging: [x] Head CT HOW TO REACH NEUROSURGERY Contact your Doctor Office Hours: Thursday through Thursday, 8am-5pm. Call . On weekends or after office hours: Call [phone] and ask the ap operator to page the Neurosurgery Resident farm demonstrator. IMPORTANT PHONE NUMBERS: Outpatient Nurse (Stephanie Lopez) Inpatient Nurses Neurosurgical Resident On-Call (after 5pm or before 8am) Neurosurgery offices (Thursday through Thursday between 8am-5pm): Adult Neurosurgery Dr. Luis Carlos Carranza Pediatric Neurosurgery Dr. Graham Alonso Mid-level practitioners Graham Montalvo, Physician Labor Relations Or Personnel Negotiator Ab Pillai, Physician Labor Relations Or Personnel Negotiator Maty Mcfadden, Nurse Practitioner Winter Schmidt, Nurse Practitioner * Your surgeon may not be call center rn, so be ready to tell about yourself and your surgery when you call, especially after hours or on the weekend. Ade Love, MULTI DISCIPLINED LANGUAGE ANALYST 11/16/2019 documented in this encounter Discharge Instructions [...] anticoagulant, and non-steroidal anti-inflammatory (NSAIDs) drugs. Common njzi-htr-vaqnnvv medications which should be avoided include Aspirin, [...] a head injury. - When your health healthcare science specialist says you are well enough, return to your normal activities gradually, not all at once. - Talk with your health healthcare science specialist about when you can return to work. DRIVING: - Do NOT drive until cleared by Neurosurgery. FOLLOW UP PLAN: Incision: Please follow up for suture/staple removal on/around November 23 with your Primary Care Provider or the Neurosurgery GENERAL HARDWARE SALESPERSON/RN. These may also be removed at rehab. Appointments: 1) Please follow up in the Neurosurgery Clinic in 4-6 weeks with a Neurosurgery Associate Provider.Please call the Neurosurgery Office at [phone] if you do not receive a scheduled appointment within two weeks. You will have a head CT at this appointment. 2) Please follow up in outpatient Neurology Clinic in 4 weeks for management of your seizure medication. You will be contacted with an appointment. Please call their office with any questions or concerns at [phone]. documented in this encounter Medications at Time [...] questions answered. Report called to RN at [facility]. VNA paperwork faxed. Patient instructed to call with concerns. * Neelam Mccall - 11/16/2019 3:59 PM EDT Office of Care Management/Mortgage Collector Patient Name: Josue Nguyen : 1945 Patient has been offered an acute rehab bed at [facility] for today, 11/16/19 [facility] arranged for a 1745 transport. Ambulance will need: Medicare ambulance form completed and signed (MD or Electromechanic RN/TOURISM RADIO PRESENTER) Copy of patient demographics [place] [facility] DNR/DNI order, if active Dr. Sevilla to admit Please call Nursing Report to , ask for qualitative field project manager. Info to accompany patient: Narcotic Prescriptions Copies of Medication Administration Records and IV sheets for past 10 days. Plan: Mortgage Collector will be available to the patient and Electromechanic-RN and/or Social Workerfor further assistance. Patient will be discharged to: [facility] Neelam Mccall Mortgage Collector * Syl Najera - 11/16/2019 2:20 PM EDT Nutrition Services Note - Low Nutrition Acuity Josue Nguyen is a 74 y.o. male Reason for intervention: follow up Nutrition Plan: Continue current diet. Monitor weight. Encourage good oral intake. Support and encouragement provided. Pt was engaged with other services at time of nutrition visit, technical writer and editor spoke with RN. Per RN report,pt had [...] consulted in the interim. Syl Najera Pager: [phone] * Fariba Salas - 11/16/2019 12:45 PM EDTSummary: - System member information provided Office of Care Management-System Liaison Reviewed medical record and discussed with primary Electromechanic, Chhaya Olivarez. Met with Josue Nguyen to discuss acute rehab level of care and provided specific information about [facility], which patient has been referred to for inpatient rehabilitation. Informed Josue Nguyen of referral review process that occurs. Discussed discharge disposition post rehab. Answered patient's questions. Patient aware of pending insurance authorization at time of this visit. Patient will be followed by primary case repairer for discuss all choices and options Provided my contact number if any further questions regarding rehab or specific facility Will continue to follow along with patient's primary case repairer. System Liaison will continue to assist with any discharge needs related to the above facility as needed. Fariba Salas RN BSN CRRN System Liaison Electromechanic * Charlene Louis MD - 11/16/2019 3:52 [...] I/O: I/O last 3 completed shifts: In: 1812 [P.O.:960; I.V.:852] Out: 365 [Urine:3655] TRANG: out [...] extremity drift. LT sensation intact x 4. [employer] hole sites c/d/i, closed with roberto LABS: [...] attenuation SDH. 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 His waxing and waning [...] out DISPO: 5W FULL CODE PLEASE PAGE [phone] WITH QUESTIONS Active Hospital Problems Diagnosis ??? [...] attenuation SDH. 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 INTERVAL HX/ROS: -Still having word finding difficulty intermittently associated with right hand clumsiness -Depakote subtherapeutic and dose increased MEDICATIONS: Scheduled Meds: ??? busPIRone 7.5 mg Oral BID ??? valproate sodium 500 mg Intravenous Q8H SIKP ??? melatonin 3 mg Oral Nightly ??? [...] management DISPO: 5W FULL CODE PLEASE PAGE [phone] WITH QUESTIONS Active Hospital Problems Diagnosis ??? [...] attenuation SDH. 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 INTERVAL HX/ROS: -Having what panic attacks vs episodes of word finding difficulty -Started on Buspirone -NPO since UT for embolization of fistula today MEDICATIONS: Scheduled [...] 1231 [P.O.:900; I.V.:331] Out: 350 [Urine:345; Other:5] RTANG: out 11/12 Physical Exam: General:NAD, listening to [...] extremity drift. LT sensation intact x 4. [employer] hole sites c/d/i, closed with roberto LABS: [...] attenuation SDH. 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 His waxing and waning [...] F/u need for BIT/psych consultation PLEASE PAGE [phone] WITH QUESTIONS Active Hospital Problems Diagnosis ??? [...] attenuation SDH. 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 INTERVAL HX/ROS: -NAEON -Had [...] 13.0* PLATELET 250 219 228 Recent Labs 11/13/1920211/12/1913211/11/19206 NA 137 139 141 K 4.1 4.1 [...] attenuation SDH. 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 His waxing and waning [...] w/in therapeutic range. Will be NPO at [facility] for dAVF embo tmrw. Plan: - Q2HNC, then Q4H, floor status after drain removal - SBP<160 - Hold DVT ppx - Remove TRANG today - Regular diet; NPO at [facility] for vascular malformation embolization tmrw - Depakote 500mg TID - F/u need for BIT/psych consultation - DISPO: transfer to 5W after removal of drain PLEASE PAGE [phone] WITH QUESTIONS Active Hospital Problems Diagnosis ??? [...] dAVF (Isadora 3) on DSA. INTERVAL HX/ROS: POD2 s/p [...] are clean and dry LABS: Recent Labs 11/12/193 11/11/1920611/10/19 0127 WBC 6.4 7.3 5.6 HGB 12.9* [...] attenuation SDH. 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 His waxing and waning [...] - C/s BIT/psych may occur PLEASE PAGE [phone] WITH QUESTIONS Active Hospital Problems Diagnosis ??? [...] attenuation SDH. 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 INTERVAL HX/ROS: POD1 s/p [...] attenuation SDH. 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 His waxing and waning [...] - C/s BIT/psych may occur PLEASE PAGE [phone] WITH QUESTIONS Active Hospital Problems Diagnosis ??? [...] % (flush), lidocaine, [JUN Hold] ondansetron OR [MAR Hold] ondansetron, [MAR Hold] acetaminophen OR [JUN Hold] acetaminophen, [MAR Hold] labetalol, [MAR Hold] hydrALAZINE, [JUN Hold]glucose 40% oral geL OR [JUN Hold] [...] pneumocephalus after removal of EVD. Grossly stable noco-we-abefu midline shift. A/P: 74 y.o. male with PMH of HTN, HLD, and DM with progressively worsening RIGHT sided weakness found to have a large LEFT frontal/parietal mixed attenuation SDH. 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 His waxing and waning mental status on presentation raised concern for possible seizures and he was placed on video EEG without recorded seizure activity. He was again placed on video EEG on11/08/19 after episodic agitation and speech arrest. Q2HNC SBP<160 Hold DVT ppx Monitor drain output (half suction) Regular diet Keppra 500mg BID PLEASE PAGE [phone] WITH QUESTIONS Active Hospital Problems Diagnosis ??? [...] pneumocephalus after removal of EVD. Grossly stable ujrb-dt-ermmi midline shift. A/P: Josue Nguyen is a [...] NSCU FULL CODE For question please call BHAVIN pager [phone] Charlene Louis MD 11/10/2019 Clinical Documentation Improvement: [...] although he voiced frustration over his aphasia. Ethics Instructor offered support. According to pt, his appetite has been off and on for the past 3-4 weeks. Pt suspects he has lost some weight but is unsure of how much. His UBW is 190 lbs, although he imagines his weight is bellow that no w. When medically appropriate, technical writer and editor suggests collecting an updated weight. Pt regularly [...] consulted in the interim. UMA Cardoso Pager: [phone] * Charlene Louis MD - 11/09/2019 9:57 AM EDT NEUROSURGERY PROGRESS NOTE ID: Josue Nguyen is a 74 y.o. male with PMH of HTN, HLD, and DM with progressively worsening RIGHT sided weakness found to have a large LEFT frontal/parietal mixed attenuation SDH. 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 11/02/19: L SEPS placement [...] while walking, appears unsteady LABS: Recent Labs 11/09/196 11/08/19 0224 11/07/19 0113 WBC 5.9 6.5 [...] pneumocephalus after removal of EVD. Grossly stable vwxz-og-ggkzp midline shift. A/P: Josue Nguyen is a [...] CODE For question please call NS pager [phone] Charlene Louis MD 11/09/2019 Clinical Documentation Improvement: Active Hospital Problems Diagnosis ??? SDH (subdural hematoma) Resolved Hospital Problems No resolved problems to display. * Shiv Blankensihp - 11/09/2019 8:23 AM EDT Nutrition Services [...] consulted in the interim. 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 INTERVAL HX/ROS: -Episodic incidents [...] dAVF embo with IR tomorrow PLEASE PAGE [phone] WITH QUESTIONS Active Hospital Problems Diagnosis ??? [...] attenuation SDH. 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 11/02/19: L SEPS placement [...] CODE For question please call NSGY pager [phone] Charlene Louis MD 11/08/2019 Clinical Documentation Improvement: Active Hospital Problems Diagnosis ??? SDH (subdural hematoma) Resolved Hospital Problems No resolved problems to display. * Jessica Smith - 11/07/2019 7:35 PM EDT Fire Protection Specialist Encounter Note Patient Name: Josue Nguyen : [id number] MR#: [id number] Admit Date: 11/01/2019 6:59 PM Hospital Day 6 days Narrative: Responded to request for repairing calibrator consult. Assessment: Patient's kaiden and resiliency are sources of strength. Intervention and Outcome: Actively listened, providing spiritual support as patient engaged in life review; spiritual journeyleading to recent ordination; daughter's from addiction leading to life work in addiction recovery; of beloved November 2018. Follow-up: Fire Protection Specialist remains available for support. Time in Direct Care: 35 min. Jessica Smith 11/07/2019 * Charlene Louis MD - 11/07/2019 9:09 AM EDT NEUROSURGERY PROGRESS NOTE ID: Josue Nguyen is a 74 y.o. male with PMH of HTN, HLD, and DM with progressively worsening RIGHT sided weakness found to have a large LEFT frontal/parietal mixed attenuation SDH. 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 11/02/19: L SEPS placement [...] Labs 11/07/19 0113 11/06/19 0125 11/05/19 011 WBC 6.6 7.4 7.8 HGB 13.5* [...] -NPO, [facility]IV[facility] For question please call [facility] pager [phone] Charlene Louis MD 11/07/2019 Clinical Documentation Improvement: [...] attenuation SDH. 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 11/02/19: L SEPS placement [...] Tongue midline MOTOR: Full strength today RUE:5/5 LUE:08/22 RLE: 08/22 LLE: 08/22 No pronator [...] CODE For question please call NSGY pager [phone] Tu Reyes MD 11/06/2019 Clinical Documentation Improvement: [...] attenuation SDH. 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 11/02/19: L SEPS placement [...] frontal SDD in place, dressing c/d/i R COMMUNITY OUTREACH DIRECTOR access site c/d/i, no hematoma, leg warm [...] CODE For question please call NSGY pager [phone] Masoud Babcock MD 11/05/2019 Clinical Documentation Improvement: [...] frontal SDD in place, dressing c/d/i R COMMUNITY OUTREACH DIRECTOR access site c/d/i, no hematoma, leg warm [...] dAVF For question please call NSGY pager [phone] Charlene Louis MD 11/04/2019 Clinical Documentation Improvement: [...] round, and reactive to light. His right COMMUNITY OUTREACH DIRECTOR access site was soft with a C/D/I [...] of : 1945 AGE: 74 y.o. Address: [address] [place] [phone] (home) [phone] (work) Mobile: Telephone Information: Referring Provider: Devonte [...] 14 CREATININE 1.12 0.92 Recent Labs 11/02/19 23011/01/192113 PT 11.4 12.4 INR 1.0 1.1 IMAGING: [...] updated For question please call NSGY pager [phone] Charlene Louis MD 11/03/2019 Clinical Documentation Improvement: Active Hospital Problems Diagnosis ??? SDH (subdural hematoma) Resolved Hospital Problems No resolved problems to display. * Charlene Louis MD - 11/02/2019 1:14 PM EDT [facility] Middle Meningeal Embolization Trial Enrollment The study (Middle Meningeal Artery Embolization for Treatment of Chronic Subdural Hematomas - A randomized control trial, IRB ID [id number], Approved 02/03/19 by [facility]) was discussed and explained to the [...] and one copy will be scanned into [facility] and kept on file. NIHSS 1.a. Level [...] than one modality TOTAL SCORE: 5 Modified Tee Scale (mRS) 0 - No symptoms. 1 [...] score Charlene Louis MD 11/02/2019 1:18 PM [facility] Neurosurgery Inpatient Pager: #[phone] Personal Pager: #[phone] * Charlene Louis MD - 11/02/2019 9:22 [...] HTN HLD TIIDM Plan: -[facility]H [facility], [facility] -Talk w about bedside drainage; plan for SEPS drain -Con't w EEG -AEDs per Neurology; Keppra 500 BID for now -Hold ap/ac -Bedrest For question please call [employer] pager [phone] Charlene Louis MD 11/02/2019 Clinical Documentation Improvement: Active Hospital Problems Diagnosis ??? SDH (subdural hematoma) Resolved Hospital Problems No resolved problems to display. * Radha Frank RN - 11/02/2019 6:31 AM EDT Josue Nguyen arrived to [facility] @ 0000 from ED. Oriented [...] 24-HOUR UPDATE Josue Nguyen was seen in [facility]. The patient's history and physical [...] attenuation LEFT subdural hematoma on outside facility ([facility]) CT of the head on 10/31 [...] file Gets together: Not on file Attends anabaptism service: Not on file Active member of [...] attenuation LEFT subdural hematoma on outside facility ([facility]) CT of the head on 10/31 [...] CC: SDH HPI: History is obtained from [facility] ED records and partially from patient. This is a 74 y.o. male with PMH of HTN, HLD, and DM who presented to the ED at [facility] after having anoutpatient CT scan that [...] file Gets together: Not on file Attends anabaptism service: Not on file Active member of [...] Denies alcohol/illicit drug use Vitals: Vitals: 11/01/19 19111/01/19 19311/01/19194411/01/191999 BP: 132/57 131/69 136/75 128/71 Patient Position: [...] Judge MD - 11/08/2019 11:[address] [facility] Department of Neurology Critical Care Continuous EEG Report Patient: Josue Nguyen, [id number] Date: 11/08/19 Start Time: 11/08/19 20:39 End Time: 11/09/19 02:09 Fellow: Osbaldo Judge MD Attending: Vishal Whitman MD History: 74 yo M with a large left SDH s/p SEPS on 11/02/19. EEG for episodes of confusion concerning for seizures. Methods: A 21 channel digitized electroencephalogram was performed in the Neurologic Critical Care Unit by the [facility] Clinical Neurophysiology Laboratory. The 10/20 international [...] Judge MD 11/08/2019 11:29 PM Personal pager: [phone] Epilepsy Fellow Associated attestation - Wild Whitman MD - 11/14/2019 4:45 PM EDT EPILEPSY ATTENDING ADDENDUM - I reviewed the EEG with the TOOL MAINTENANCE WORKER/Epilepsy fellow, and I agree with the interpretation as documented. Wild Whitman MD, PhD Dairy Scientist of Neurology [facility] Epilepsy [place] Clinical Neurophysiology Laboratory * Osbaldo Judge MD - 11/03/2019 10:[address] [facility] Department of Neurology Critical Care Continuous EEG Report Patient: Josue Nguyen, [id number] Date: 11/03/19 Start Time: 11/03/19 07:30 End Time: 11/03/19 13:10 Fellow: Osbaldo Judge MD Attending: Vinnie Gary MD PhD History: 74 yo M with a large left SDH s/p evacuation and episodes of confusion concerning for seizures. Methods: A 21 channel digitized electroencephalogram was performed in the Neurologic Critical Care Unit by the [facility] Clinical Neurophysiology Laboratory. The 10/20 international [...] Judge MD 11/03/2019 10:07 PM Personal pager: [phone] Epilepsy Fellow Associated attestation - Vinnie Gary Jr., MD - 11/04/2019 4:36 PM EDT I have reviewed the EEG with the fellow and agree with the assessment above. Vinnie Gary MD, PhD Department of Neurology Personal Pager #[phone] 11/04/2019 4:36 PM * Charlene Louis MD - 11/03/2019 12:14 PM EDT [facility] NEUROSURGERY OPERATIVE NOTE Patient: Josue Nguyen : [...] 30 degrees in the neutral position. A [place] Time-Out Protocol was performed, and the operative [...] Judge MD - 11/02/2019 12:[address] [facility] Department of Neurology Critical Care Continuous EEG Report Patient: Josue Nguyen, [id number] Date: 11/03/19 Start Time: 11/02/19 07:30 End Time: 11/03/19 07:30 Fellow: Osbaldo Judge MD Attending: Vinnie Gary MD PhD History: 74 yo M with a large left SDH s/p evacuation and episodes of confusion concerning for seizures. Methods: A 21 channel digitized electroencephalogram was performed in the Neurologic Critical Care Unit by the [facility] Clinical Neurophysiology Laboratory. The 10/20 international [...] Judge MD 11/03/2019 12:38 PM Personal pager: [phone] Epilepsy Fellow Associated attestation - Vinnie Gary Jr., MD - 11/03/2019 1:04 PM EDT I have reviewed the EEG with the fellow and agree with the assessment above. Vinnie Gary MD, PhD Department of Neurology Personal Pager #[phone] 11/03/2019 1:04 PM * Charlene Louis MD - 11/02/2019 12:05 PM EDT [facility] NEUROSURGERY OPERATIVE NOTE Patient: Josue Nguyen : 1945 DATE OF PROCEDURE: 11/02/2019 ATTENDING SURGEON: Dr. Casey Singh MD INDUSTRIAL HYGIENE ENGINEER SURGEON: Dr. Charlene Louis MD PREOPERATIVE DIAGNOSIS: [...] 30 degrees in the neutral position. A [place] Time-Out Protocol was performed, and the operative [...] Judge MD - 11/02/2019 11:[address] [facility] Department of Neurology Critical Care Continuous EEG Report Patient: Josue Nguyen, [id number] Date: 11/02/19 Start Time: 11/02/19 03:13 End Time: 11/02/19 07:30 Fellow: Osbaldo Judge MD Attending: Vinnie Gary MD PhD History: 74 yo M with a large left SDH and episodes of confusion concerning for seizures. Methods: A 21 channel digitized electroencephalogram was performed in the Neurologic Critical Care Unit by the [facility] Clinical Neurophysiology Laboratory. The 10/20 international [...] Judge MD 11/02/2019 11:12 AM Personal pager: [phone] Epilepsy Fellow Associated attestation - Vinnie Gary Jr., MD - 11/02/2019 12:56 PM EDT I have reviewed the EEG with the fellow and agree with the assessment above. This recording appearsessentially normal, aside from moderate bradycardia. Vinnie Gary MD, PhD Department of Neurology Personal Pager #[phone] 11/02/2019 12:56 PM documented in this encounter ED Notes * Alissa Garnica NRP - 11/01/2019 10:48 PM EDT Neuro provider bedside for eval * Alissa Garnica NRP - 11/01/2019 9:39 PM EDT Providers bedside for eval. Pt still alert/oriented but drowsy. Daughter Loretta updated by phone, would like update when plan is in place: [phone] * Winter Tsang RN - 11/01/2019 9:27 [...] headache, reports headache as worstever. Neuro surge MULTI DISCIPLINED LANGUAGE ANALYST paged and made aware of change in [...] and type II diabetes is atrans[facility] for a left subdural [...] Neurosurgery service. Kristian Macario MD Resident 11/01/19 2802 Associated attestation - Camila Troy MD - [...] 11/01/2019 7:34 PM EDT Pt arrived from [facility] after dx of L SDH. Pt [...] I accepted in transfer from Dr. Brown, [facility] ED The patient will be evaluated [...] call. Pt. will be transferred to the [facility] ED to be seen by the ED team and by neurosurgery. Nirav Romero MD 11/01/19 1641 documented in this encounter Miscellaneous Notes * Care Management - Chhaya Olivarez RN - 11/16/2019 4:28 PM EDTSummary: Discharge planning D/C planning: Team: Neurosurg Pager: [phone] Pt to d/c to [facility] acute rehab via ambulance at 5:45pm today. Pt is aware of d/c plan and isin agreement. Chhaya Olivarez MSN, RN CM securities adviser Office of Care Management Pager #[phone] * Plan of Care - Kary Saeed [...] History: Home set-up: Lives in [facility] () in an apartment Bathroom Set-up: [...] with neurological disorders, Disabil Rehabil. 2012; 34(19): 0450-8262. 2. Parrachel PK, Maryann NK, Jetter AM, et al. Sensitivity to Change and Responsiveness of Four Balance Measures for Community-Dwelling Older Adults, Pneumatic Drum Sander. 2012; 92: 388-397. 3. Marcus DEVINE. Vestibular Rehabilitation. 2nd ed. [place], [place]: [employer]; 1999. 4. Arsenio Hairston, Gustavo Ramirez. Motor Control Theory and Applications, [place] and [place], 1995: 323-324 Education: patient has been educated [...] Total Evaluation Minutes, Physical Therapy: 30(TEF, TEN ([id number])) Syd Kaiser, SKIN CARE SPECIALIST Pager: [phone] Physical Therapy Inpatient Rehabilitation Department * Consult Note - Shannon Garcia MD - 11/16/2019 6:10 AM EDT Neurology Progress Note 11/16/2019 Patient Name: Josue Nguyen Admit Date: 11/01/2019 Patient ID: Josue Nguyen is a 74 y.o. presenting with PMHx of HTN, HLD, DM2 who presents in transfer from [facility] with a LEFT subdural hematoma (presumed [...] L Elbow flexion 4/5 R, 5/5 L Videotape Recording Engineer LE: 4/5 R, 5/5 L Hip flexion [...] HLD, DM2 who presents in transfer from [facility] with a LEFT subdural hematoma (presumed [...] Neurology Resident 11/16/2019 Neurology Consult Service Pager #[phone] Associated attestation - Winter Hays MD - 11/17/2019 10:52 PM EDT Neurology Attending Note Winter Hays MD (Pg [phone]) I certify that I have seen and [...] Minimal 1 assist Surveillance [continuous indirect monitoring]: monitoring analyst, pulse oximetry, purposeful hourlyrounding, call reddy within [...] HLD, DM2 who presents in transfer from [facility] with a LEFT subdural hematoma (presumed [...] L Elbow flexion 4/5 R, 5/5 L Videotape Recording Engineer LE: 4/5 R, 5/5 L Hip flexion [...] EEG. No events. No seizures. CT Head 7/28/20: No significant interval change. CT Head (11/02/2019): [...] HLD, DM2 who presents in transfer from [facility] with a LEFT subdural hematoma (presumed [...] Neurology Resident 11/15/2019 Neurology Consult Service Pager #[phone] Associated attestation - Winter Hays MD - 11/16/2019 4:49 PM EDT Neurology Attending Note Winter Hays MD (Pg [phone]) I certify that I have seen and [...] expand search for acute rehab to include [facility]. Pt is MR for d/c. Chhaya Olivarez MSN, RN CM securities adviser Office of Care Management Pager #[phone] * Plan of Care - Adia Edwards OT - 11/15/2019 11:34 AM EDT Occupational Therapy Treatment Note Treatment Number OT: 5 Patient profile: Per MD on 11/14: 74 y.o.??male??with PMH of HTN, HLD, and DM with progressively worsening RIGHT sided weakness found to have a large LEFT frontal/parietal mixed attenuation SDH. 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 His waxing and waning [...] Laterality Date ??? PRO PERM OCCLUSION/EMBOLIZATION, PERCUT, TETRYL BLENDER OPERATOR N/A 11/03/2019 ?? @TRANSCATHETER OCCLUSION/EMBOLIZATION FOR TUMOR DESTRUCTION performed by Hussain Christianson MD at [facility] ??? TONSILLECTOMY ? Social History: Patient [...] difficulty this session ?? Vision: ?? Glasses time study technologist Pain: 0/10 Education: Pt/family/caregiver education ongoing regarding: [...] Minutes, Occupational Therapy: 29(2 SC ) Pager: [phone] Adia Edwards OT Occupational Therapy Rehabilitation Department [...] Adia Edwards MS, OTR/L Occupational Therapist Pager: [phone] Inpatient Rehabilitation Services * Consult Note - Chrissy Santana RN - 11/14/2019 4:47 AM EDT Images from the original note were not included. Infiltration/Extravasation Scale Josue Nguyen [id number] N524/N524-A Infiltration appearance: Infiltration harm % for [...] AM Name of Plastics MD (if consulted) BALLAST INSPECTOR CARING FOR THIS PATIENT WILL CONTINUE TO [...] Subgaleal drain removed. PLAN MOVING FORWARD: ?? L7mdseh/ X8fdfek checks NPO at midnight for embolization in [...] sanguinous drainage. ?? PLAN MOVING FORWARD: ?? W6utqub/vital checks Monitor subgaleal drain ?? INDIVIDUALIZED FALL [...] Laterality Date ??? PRO PERM OCCLUSION/EMBOLIZATION, PERCUT, TETRYL BLENDER OPERATOR N/A 11/03/2019 ?? @TRANSCATHETER OCCLUSION/EMBOLIZATION FOR TUMOR DESTRUCTION performed by Hussain Christianson MD at [facility] ??? TONSILLECTOMY ? Social History: Patient [...] of Visospatial/ Execution, Fluency, and Delayed Recall. Watson Cognitive Assessment (MoCA) Results: Visuospatial/Exec 1/ Trails [...] greater considered normal ?? Vision: ?? Glasses time study technologist Pain: 0/10 Education: Pt/family/caregiver education ongoing regarding: [...] 1x schm) ; 1 cog skills Pager: [phone] DILIP Holloway OTA Occupational Therapy Rehabilitation Department [...] answer at this time. PLAN MOVING FORWARD: W3ssany/vital checks Monitor subgaleal drain INDIVIDUALIZED FALL PREVENTION [...] planning as needed. Chhaya PALOMINO, RN CM securities adviser Office of Care Management Pager #[phone] * Plan of Care - Syd Kaiser [...] History: Home set-up: Lives in [facility] () in an apartment Bathroom Set-up: [...] Total Evaluation Minutes, Physical Therapy: 30(GT, CHANDRIKA ([phone])) Syd Kaiser, SKIN CARE SPECIALIST Pager: [phone] Physical Therapy Inpatient Rehabilitation Department * Plan [...] placed on 11/02. LLA embolization on 11/02. [employer] holes for DSH drainage 11/10/19. ?? Past Medical History Past Medical History: Diagnosis Date ??? Diabetes mellitus ? Hypertension ? Past Surgical History Past Surgical History: Procedure Laterality Date ??? PRO PERM OCCLUSION/EMBOLIZATION, PERCUT, TETRYL BLENDER OPERATOR N/A 11/03/2019 ?? @TRANSCATHETER OCCLUSION/EMBOLIZATION FOR TUMOR DESTRUCTION performed by Hussain Christianson MD at [facility] ??? TONSILLECTOMY ? Social History: Patient [...] ambulated ~150ft with FWW and CGA with DIRECTOR OF PERIOPERATIVE SERVICES and returning to room ?? Cognition: ?? [...] requested to stop. ?? Vision: ?? Glasses time study technologist ?? Vitals: 107/53, HR 67, O2 98 [...] Therapy: 10 ; 1 cog skills Pager: [phone] Adia Edwards OT Occupational Therapy Rehabilitation Department [...] EVALUATION: Goal: Fall Prevention-Safe Patient Handling 11/06/19152911/10/19 0800 11/10/191999 Daily Care Interventions Self-Care Promotion [...] Overview Goal: Plan of Care Review 11/10/19 7096 Coping/Psychosocial Plan Of Care Reviewed With patient [...] the head turned to the right. A [place] Time-Out Protocol was performed, and the operative [...] bluntly dissected Bovie electrocautery and a #1 [place]. A high-speed drill with a certified medical aide bit was used to place bur holes [...] Operative Note Patient Name: Josue Nguyen : [id number] MR#: [id number] Case Date: 11/10/2019 Surgeon: Surgeon(s) and Role: [...] Operative Note Patient Name: Josue Nguyen : [id number] MR#: [id number] Case Date: 11/10/2019 Surgeon: Surgeon(s) and Role: [...] Adia Edwards MS, OTR/L Occupational Therapist Pager: [phone] Inpatient Rehabilitation Services * Plan of Care [...] this time in hospital course [ ] Penitentiary Facility * Plan of Care - Danial [...] need insurance auth prior to going to [facility] if a bed is offered. CM will continue to monitor and assist with d/c planning as needed. Chhaya Olivarez MSN, RN CM securities adviser Office of Care Management Pager #[phone] * Consult Note - Oralia Patel Felicia - 11/08/2019 9:02 PM EDT Neurology Progress Note 11/08/2019 Patient Name: Josue Nguyen Admit Date: 11/01/2019 Patient ID: Josue Nguyen is a 74 y.o. presenting with PMHx of HTN, HLD, DM2 who presents in transfer from [facility] with a LEFT subdural hematoma (presumed [...] story. History obtained from bedside nurse and technical consultant and confirmed with patient. Physical Exam: Vitals: [...] I can't say, Obama, that one yakov (eloina Riddle Jr from list) Repetition intact, waxing and waning [...] L Elbow flexion 4/5 R, 5/5 L Videotape Recording Engineer LE: 4/5 R, 5/5 L Hip flexion [...] HLD, DM2 who presents in transfer from [facility] with a LEFT subdural hematoma (presumed [...] Neurology Resident 11/08/2019 Neurology Consult Service Pager #[phone] Associated attestation - Josue Reyes MD - 11/14/2019 5:01 PM EDT Neurology Attending Note Josue Reyes MD PhD (pager [phone]) I have seen and examined Josue Nguyen [...] History: Home set-up: Lives in [facility] () in an apartment Bathroom Set-up: [...] Evaluation Minutes, Physical Therapy: 37(TEF, GT, CHANDRIKA ([phone])) Syd Kaiser, EMILY Pager: [phone] Physical Therapy Inpatient Rehabilitation Department * Plan [...] Laterality Date ??? PRO PERM OCCLUSION/EMBOLIZATION, PERCUT, TETRYL BLENDER OPERATOR N/A 11/03/2019 ?? @TRANSCATHETER OCCLUSION/EMBOLIZATION FOR TUMOR DESTRUCTION performed by Hussain Christianson MD at [facility] ??? TONSILLECTOMY ? Social History: Patient [...] ?? Safety awareness: WFL ?? Upon this technical writer and editor entering Pt room; noted with decreased ability to follow one step commands and make wants and needs known. Therapist alerted RN; when RN performed neuro-check Pt oriented x4. ?? Pt then noted with ability to maintain orientation during session with occasional word finding difficulties ?? Vision: ?? Glasses time study technologist ?? Vitals: 97/53, HR 68, O2 98 [...] Minutes, Occupational Therapy: 29(2 SC ) Pager: [phone] Adia Edwards OT Occupational Therapy Rehabilitation Department [...] this time in hospital course [ ] Penitentiary Facility Goal: Fall Prevention-Safe Patient Handling Outcome: [...] this time in hospital course [ ] Penitentiary Facility * Plan of Care - Enoc [...] this time in hospital course [ ] Penitentiary Facility Goal: Infection Control Outcome: Ongoing (Interventions [...] this time in hospital course [ ] Penitentiary Facility Goal: Fall Prevention-Safe Patient Handling Outcome: [...] discharge. ?? I have met with the patient/litigation claim representative to discuss discharge planning needs. I have provided the [facility], Office of Care Management letter from the Compensation/Benefits Specialist pertaining to rehab referrals. I have also provided a letter describing our affiliations within the [facility] and educated them about their right to choose where referrals are. ?? Provided patient with CMS Star Quality Rating for SNF, LTAC and/or IRF hand out. ?? I reviewed the different levels of rehab including SNF, swing, acute and LTAC with the patient/litigation claim representative. ?? The patient/litigation claim representative has been provided a list of facilities within their preferred geographic area. ?? I have requested that the patient/litigation claim representative provide at least three choices for referral. ?? The patient/litigation claim representative have requested referrals to: ?? 1. [facility] ?? Expected date of discharge: 11/07/19 Note routed to Mortgage Collector who will communicate referrals to facilities and provide any required information. Chhaya PALOMINO, RN CM securities adviser Office of Care Management Pager #[phone] * Plan of Care - Steffen Almazan, [...] Laterality Date ??? PRO PERM OCCLUSION/EMBOLIZATION, PERCUT, TETRYL BLENDER OPERATOR N/A 11/03/2019 @TRANSCATHETER OCCLUSION/EMBOLIZATION FOR TUMOR DESTRUCTION performed by Hussain Christianson MD at [facility] ??? TONSILLECTOMY Active Non-Hospital Problems Diagnosis ??? Basal cell carcinoma ??? Tinea pedis Social History: Home set-up: Lives in [facility] () in an apartment Bathroom Set-up: [...] to person, place, and time Vision: glasses time study technologist Skin: SDD on head; femoral incision Musculoskeletal: [...] outlinedin this evaluation. Time IN / OUT: 0324-9091 Total Evaluation Minutes, Physical Therapy: 32(eval; TEF) Steffen Almazan, PT Pager: [phone] Physical Therapy Inpatient Rehabilitation Department * Plan [...] Laterality Date ??? PRO PERM OCCLUSION/EMBOLIZATION, PERCUT, TETRYL BLENDER OPERATOR N/A 11/03/2019 @TRANSCATHETER OCCLUSION/EMBOLIZATION FOR TUMOR DESTRUCTION performed by Hussain Christianson MD at [facility] ??? TONSILLECTOMY Social History: Patient lives [...] and measurable assessment of functional outcome. Pager: [phone] NEELAM FLANAGNA OT 11/04/2019 Occupational Therapy Rehabilitation Department * [...] Brief description of the procedure: ?? Right COMMUNITY OUTREACH DIRECTOR access with micropuncture technique and placement of [...] with 250 um Embozene particles ?? Right COMMUNITY OUTREACH DIRECTOR roadmap ?? Closure of right COMMUNITY OUTREACH DIRECTOR access with Mynx closure device Findings of [...] as able/appropriate. Steffen Almazan PT, DPT Pager [phone] Inpatient Rehabilitation * Plan of Care - Adia Edwards, OT - 11/03/2019 1:01 PM EDT Occupational Therapy Contact Note: Order received and chart reviewed. Per RN; Pt on bedrest and awaiting embolization later today. Plan to follow-up tomorrow as Pt is appropriate and as activity orders are updated. Adia Edwards MS, OTR/L Occupational Therapist Pager: [phone] Inpatient Rehabilitation Services * Consult Note - Shannon Garcia MD - 11/03/2019 6:44 AM EDT Neurology Inpatient Consult Note - 11/03/2019 Admit date: 11/01/2019 Attending: Casey Singh MD ID: Josue Nguyen is a 74 y.o. male with PMHx of HTN, HLD, DM2 [facility] (presumed acute [...] 5 mg Oral Daily Bogdan, Maty A, MULTI DISCIPLINED LANGUAGE ANALYST 5 mg at ??? metFORMIN (Glucophage) tablet 1,000 mg 1,000 mg Oral BID WC Bodgan, Maty A, MULTI DISCIPLINED LANGUAGE ANALYST 1,000 mg at 11/02/19 1753 ??? sodium chloride 0.9 % (flush) flush 5 mL 5 mL Intravenous BID Bogdan, Maty A, MULTI DISCIPLINED LANGUAGE ANALYST 5 mL at 11/02/19 2100 ??? sodium chloride 0.9 % (flush) flush 5-20 mL 5-20 mL Intravenous Q1 Min PRN Bogdan, Maty A, MULTI DISCIPLINED LANGUAGE ANALYST ??? lidocaine (XYLOCAINE) 10 mg/mL (1 %) injection 3 mg 0.3 mL Subcutaneous Once PRN Bogdan, Maty A, MULTI DISCIPLINED LANGUAGE ANALYST ??? docusate sodium (Colace) capsule 100 mg 100 mg Oral BID Bogdan, Maty A, MULTI DISCIPLINED LANGUAGE ANALYST 100 mg at ??? ondansetron (Zofran) tablet 4-8 mg 4-8 mg Oral Q8H PRN Bogdan, Maty A, MULTI DISCIPLINED LANGUAGE ANALYST Or ??? ondansetron (ZOFRAN) injection 4-8 mg 4-8 mg Intravenous Q8H PRN Bogdan, Maty A, MULTI DISCIPLINED LANGUAGE ANALYST ??? acetaminophen (Tylenol) tablet 650 mg 650 mg Oral Q4H PRN Bogdan, Maty A, MULTI DISCIPLINED LANGUAGE ANALYST 650 mg at 11/02/19 1838 Or ??? acetaminophen (Tylenol) suppository 650 mg 650 mg Rectal Q4H PRN Bogdan, Maty A, MULTI DISCIPLINED LANGUAGE ANALYST ??? labetalol (NORMODYNE,TRANDATE) injection 10-20 mg 10-20 mg Intravenous Q1H PRN Bogdan, Maty A, MULTI DISCIPLINED LANGUAGE ANALYST ??? hydrALAZINE (APRESOLINE) injection 10 mg 10 mg Intravenous Q1H PRN Bogdan, Maty A, MULTI DISCIPLINED LANGUAGE ANALYST ??? levETIRAcetam (Keppra) tablet 500 mg 500 mg Oral BID Bogdan, Maty A, MULTI DISCIPLINED LANGUAGE ANALYST 500 mg at 11/02/192026 Or ??? levETIRAcetam (KEPPRA) 500 mg in sodium chloride 0.82% 100 mL 500 mg Intravenous BID Bogdan, Maty A, MULTI DISCIPLINED LANGUAGE ANALYST ??? glucose (GLUTOSE) 40% oral geL 15-30 g Buccal Q30 Min PRN Bogdan, Maty A, MULTI DISCIPLINED LANGUAGE ANALYST Or ??? dextrose 10% infusion 250 mL Intravenous Q30 Min PRN Bogdan, Maty A, MULTI DISCIPLINED LANGUAGE ANALYST Or ??? glucagon (human recombinant) injection SolR 1 mg 1 mg Intramuscular Q30 Min PRN Bogdan, Maty A,MULTI DISCIPLINED LANGUAGE ANALYST ??? insulin lispro (HumaLOG) VIAL injection 1-5 Units 1-5 Units Subcutaneous TID AC Bogdan, Maty A,MULTI DISCIPLINED LANGUAGE ANALYST ??? ceFAZolin (ANCEF) 1g in dextrose 5% 50mL 1 g Intravenous Q8H Charlene Louis MD Stopped at 11/03/19 0431 ??? sodium chloride 0.9% infusion 100 mL/hr Intravenous Continuous Bogdan, Maty A, MULTI DISCIPLINED LANGUAGE ANALYST 100 mL/hr at 11/03/19 0352 100 mL/hr [...] file Gets together: Not on file Attends anabaptism service: Not on file Active member of [...] Flexor digitorum profundus Digit II-V flexion / trail maintenance worker 4 5 L2-3 Iliopsoas Hip flexion 4 [...] 3 Coags Recent Labs 11/02/19 2303 11/01/19 2114 PT [...] HLD, DM2 who presents in transfer from [facility] with a LEFT subdural hematoma (presumed [...] patient. x Recommendations are above, please page [phone] if further consultation is required. Shannon Garcia MD Neurology, PGY-3 Consult Neurology Service #[phone] 11/03/2019 Associated attestation - Josue Reyes MD - 11/13/2019 7:30 PM EDT Neurology Attending Note Josue Reyes MD PhD (pager [phone]) I have seen and examined Josue Nguyen [...] this time in hospital course [ ] Penitentiary Facility * Care Management - Chhaya Olivarez RN - 11/02/2019 3:55 PM EDT This CM along with [employer] called and spoke to pt's dtr to gather more information for d/c planning. Dtr,, Loretta, stated that pt was very independent and active in the community prior to hospitalization.Due to the remote location of where the pt lives, there is very limited community support. Loretta states pt has a friend, Guadalupe, who lives in [place], [place] and a grandson, ex-son in law who livesin [place], [place]. Pt's dtr is very supportive, but lives in [place]. Pt's dtr stated she would be happy to support her father going for a rehab stay prior to returning home and VNA afterward if needed. Per dtr, pt has not had VNA, but pt's has prior to her passing. Also, pt has been to [facility] in the past. Pt's dtr stated concern of COVID exposure, pt's dtr was educated on the screening process for pt's coming into facilities and staff prior to coming into buildingsfor work daily. CM will continue to monitor and assist with d/c planning as needed. Chhaya Olivarez MSN, RN CM securities adviser Office of Care Management Pager #[phone] * Initial Assessments - Biju Lewis MSW - 11/02/2019 8:05 AM EDT Office of Care Management Initial Assessment JENNIFER Vega reviewed record and discussed patient with Care Team. Source of Information: Patient (slow and whimsical in responses), Chart, Treatment Team Introduced self/reviewed role; services accepted. Reason for Hospitalization: transfer from [facility] with a LEFT subdural hematoma (presumed [...] note- 11/02/2019 ??2:58 AM) [facility] Social & Family Supports/Community Resources: daughter in [place], daughter in [place], sister in [place], wifes family, friends Behavioral Health History: a major period of anxiety following 's of COPD Substance Use/Abuse: Tobacco Use ??? Smoking status: Former Smoker- quit in 2002 ??? Smokeless tobacco: Never Used Substance Use Topics ??? Alcohol use: once of twice per year ??? Drug use: No Other Pertinent/Service Specific Information: worked at [facility] for a decade Health/Prescription Coverage: Primary Insurance: [employer] MANAGED MEDICARE Secondary Insurance: N/A Prescription Coverage: yes Preferred Pharmacy: [facility] Primary Care Provider: Shyam Harvey MD [phone] Patient/Caregiver Goals of Treatment: To be independent Potential Needs for Transition of Care: Rehab/SNF: [facility] if required Home Health: Never had agreed to [place] if required DME: :I just got a can last week when this started to get bad Dialysis:NA Community Resources: Available Transportation: states he has plenty of people to take him home but sister from [place] called bedside nurse to say she is uncertain if he can get a ride from anyone Anticipated Barriers to Discharge/Special Considerations: none Assessment: 74 y.o. male with PMH of HTN, HLD, and DM who presented to the ED at [facility] after having an outpatient CT scan [...] transition of care planning. JENNIFER Vega Pager: [phone] * Consult Note - Daquan Kline MD - 11/02/2019 2:58 AM EDT Neurology Inpatient Consult Note - 11/02/2019 Admit date: 11/01/2019 Attending: Casey Singh MD ID: Josue Nguyen is a 74 y.o. male with PMHx of HTN, HLD, DM2 [facility] (presumed acute [...] 5 mg Oral Daily Bogdan, Maty A, MULTI DISCIPLINED LANGUAGE ANALYST ??? metFORMIN (Glucophage) tablet 1,000 mg 1,000 mg Oral BID WC Bogdan, Maty A, MULTI DISCIPLINED LANGUAGE ANALYST ??? docusate sodium (Colace) capsule 100 mg 100 mg Oral BID Bogdan, Maty A, MULTI DISCIPLINED LANGUAGE ANALYST ??? ondansetron (Zofran) tablet 4-8 mg 4-8 mg Oral Q8H PRN Bogdan, Maty A, MULTI DISCIPLINED LANGUAGE ANALYST Or ??? ondansetron (ZOFRAN) injection 4-8 mg 4-8 mg Intravenous Q8H PRN Bogdan, Maty A, MULTI DISCIPLINED LANGUAGE ANALYST ??? acetaminophen (Tylenol) tablet 650 mg 650 mg Oral Q4H PRN Bogdan, Maty A, MULTI DISCIPLINED LANGUAGE ANALYST Or ??? acetaminophen (Tylenol) suppository 650 mg 650 mg Rectal Q4H PRN Bogdan, Maty A, MULTI DISCIPLINED LANGUAGE ANALYST ??? labetalol (NORMODYNE,TRANDATE) injection 10-20 mg 10-20 mg Intravenous Q1H PRN Bogdan, Maty A, MULTI DISCIPLINED LANGUAGE ANALYST ??? hydrALAZINE (APRESOLINE) injection 10 mg 10 mg Intravenous Q1H PRN Bogdan, Maty A, MULTI DISCIPLINED LANGUAGE ANALYST ??? levETIRAcetam (Keppra) tablet 500 mg 500 mg Oral BID Bogdan, Maty A, MULTI DISCIPLINED LANGUAGE ANALYST Or ??? levETIRAcetam (KEPPRA) 500 mg in sodium chloride 0.82% 100 mL 500 mg Intravenous BID Bogdan, Maty A, MULTI DISCIPLINED LANGUAGE ANALYST ??? glucose (GLUTOSE) 40% oral geL 15-30 g Buccal Q30 Min PRN Bogdan, Maty A, MULTI DISCIPLINED LANGUAGE ANALYST Or ??? dextrose 10% infusion 250 mL Intravenous Q30 Min PRN Bogdan, Maty A, MULTI DISCIPLINED LANGUAGE ANALYST Or ??? glucagon (human recombinant) injection SolR 1 mg 1 mg Intramuscular Q30 Min PRN Bogdan, Maty A,MULTI DISCIPLINED LANGUAGE ANALYST ??? insulin lispro (HumaLOG) VIAL injection 1-5 Units 1-5 Units Subcutaneous TID AC Bogdan, Maty A,MULTI DISCIPLINED LANGUAGE ANALYST ??? sodium chloride 0.9% infusion 100 mL/hr Intravenous Continuous Bogdan, Maty A, MULTI DISCIPLINED LANGUAGE ANALYST 100 mL/hr at 11/01/19 2136 100 mL/hr [...] file Gets together: Not on file Attends anabaptism service: Not on file Active member of [...] Flexor digitorum profundus Digit II-V flexion / trail maintenance worker 4 5 L2-3 Iliopsoas Hip flexion 4 [...] HLD, DM2 who presents in transfer from [facility] with a LEFT subdural hematoma (presumed [...] follow patient. Recommendations are above, please page [phone] if further consultation is required. Patient discussed with Dr. Fely Santos. Daquan Kline MD Neurology, PGY-4 Consult Neurology Service #[id number] 11/02/2019 Associated attestation - Josue Reyes MD - 11/10/2019 3:26 AM EDT Neurology Attending Note Josue Reyes MD PhD (pager [phone]) I have seen and examined Josue Nguyen [...] Denies any s/s currently. Pt given keppra SKIN CARE SPECIALIST. documented in this encounter Plan of Treatment [...] 2:24 AM EDT DIFFERENTIAL, AUTOMATED Routine 11/08/19 20 2:24 AM EDT HC CBC,PLT & AUTO [...] 11/05/2019 1:16 AM EDT DIFFERENTIAL, AUTOMATED Routine 07/18/20 20 1:16 AM EDT HC CBC,PLT & [...] POC Routine 0 3:04 PM EDT Perm Occlusion/Embolization, Percut, Multi Disciplined Language Analyst ([id number]) 11/03/2019 1:53 PM EDT Left subdural hematoma [...] 11/02/2019 1:01 AM EDT RAPID COVID-19 PCR ([facility]) STAT 11/01/2019 11:17 PM EDT ABORH RECHECK [...] density of left-sided subdural hematoma with improved vwai-ey-ewqfw midline shift. 2. 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 Thank you for letting us participate in the care of this patient. For questions regarding this report, please contact the number below. ? Electronically signed by: TALI Nava [facility] ([phone]), at 12/23/2019 12:15 PM Narrative 12/23/2019 12:15 [...] cm. Mass effect has improved. Improvement of uxyh-eo-nbdnm midline shift which is now minimal. The [...] 1.8 cm. Mass effect hasimproved. Improvement of yscv-dj-qbnot midline shift which is now minimal. Thebasilar cisterns remain patent. No acute intracranial hemorrhage, mass,hydrocephalus, or evidence of large acute infarction. Left-sided pedro pablo hole craniotomychanges are again noted. IMPRESSION 1. Interval improvement in size and density of left-sided subduralhematoma with improved sduy-ai-vfqwt midline shift. 2. 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 Thank you for letting us participate in the care of this patient. Forquestions regarding this report, please contact the number below. Electronically signed by: Alley Hart [facility] ([phone]),at 12/23/2019 12:15 PM Casey Singh MD IMG CT ORDERABLES * POCT Glucose (11/16/2019 4:08 PM EDT) Glucose, POC 108 65 - 199 mg/dL [facility] Comment: Supplemental ranges: <140 mg/dL before meals <180 mg/dL all other times of the day Blood specimen (specimen) 11/16/2019 4:08 PM EDT 11/16/2019 4:08 PM EDT Casey Singh MD POINT OF CARE TEST O RDERAPAMELA Performing Organization Address [facility]/ZIP Co de Phone Number [facility] [place] [address] * POCT Glucose (11/16/2019 12:15 PM EDT) Glucose, POC 104 65 - 199 mg/dL [facility] Comment: Supplemental ranges: <140 mg/dL before meals <180 mg/dL all other times of the day Blood specimen (specimen) 11/16/2019 12:15 PM EDT 11/16/2019 12:15 PM EDT Casey Singh MD POINT OF CARE TEST O RDERABLES [facility] [place] [address] * POCT Glucose (11/16/2019 7:48 AM EDT) Glucose, POC 109 65 - 199 mg/dL [facility] Comment: Supplemental ranges: <140 mg/dL before meals <180 mg/dL all other times of the day Blood specimen (specimen) 11/16/2019 7:48 AM EDT 11/16/2019 7:48 AM EDT Casey Singh MD POINT OF CARE TEST O RDERABLES Performing Organization Address City/[facility]/ZIP Co de Phone Number [facility] [place] [address] * POCT Glucose (11/15/2019 8:00 PM EDT) Glucose, POC 111 65 - 199 mg/dL [facility] Comment: Supplemental ranges: <140 mg/dL before meals <180 mg/dL all other times of the day Blood specimen (specimen) 11/15/2019 8:00 PM EDT 11/15/2019 8:00 PM EDT Casey Singh MD POINT OF CARE TEST O LORI Performing Organization Address [facility] Co de Phone Number [facility] [place] [address] * Valproic Acid Level, Total (11/15/2019 4:31 PM EDT) Valproic Acid 43 mg/L [facility] Comment: Therapeutic Range: Anticonvulsant Therapy: ??50-100 mg/L Manic Episodes Associated with Bipolar Disorder: ??50-125 mg/L Blood specimen (specimen) 11/15/2019 4:31 PM EDT 11/15/2019 4:48 PM EDT Narrative Resulting Agency Comment Spec In Lab Casey Singh MD CHEMISTRY ORDERABLES Performing Organization Address City/[facility]/ZIP Co de Phone Number [facility] [place] [address] * POCT Glucose (11/15/2019 4:09 PM EDT) Glucose, POC 114 65 - 199 mg/dL [facility] Comment: Supplemental ranges: <140 mg/dL before meals <180 mg/dL all other times of the day Blood specimen (specimen) 11/15/2019 4:09 PM EDT 11/15/2019 4:09 PM EDT Casey Singh MD POINT OF CARE TEST O LORI [facility] [place] [address] * CT Head wo Contrast (Generic) (11/15/2019 [...] Local mass effect is stable with unchanged klwo-nb-mgnhx midline shift of 4 mm. The basal [...] Local mass effect is stable with unchanged lqrm-qq-eylvv midline shift of4 mm. The basal cisterns [...] number below. Electronically signed by: Alley Hart [facility] ([phone]),at 11/15/2019 3:43 PM Casey Singh MD IMG CT ORDERABLES * POCT Glucose (11/15/2019 11:56 AM EDT) Glucose, POC 114 65 - 199 mg/dL [facility] Comment: Supplemental ranges: <140 mg/dL before meals <180 mg/dL all other times of the day Blood specimen (specimen) 11/15/2019 11:56 AM EDT 11/15/2019 11:56 AM EDT Casey Singh MD POINT OF CARE TEST O RDERABLES [facility] [place] [address] * POCT Glucose (11/15/2019 8:07 AM EDT) Glucose, POC 113 65 - 199 mg/dL [facility] Comment: Supplemental ranges: <140 mg/dL before meals <180 mg/dL all other times of the day Blood specimen (specimen) 11/15/2019 8:07 AM EDT 11/15/2019 8:07 AM EDT Casey Singh MD POINT OF CARE TEST O RDERABLES [facility] [place] [address] * Differential, Automated (11/15/2019 1:36 AM EDT) Neutrophil % 57.7 % [facility] Neutrophil Absolute 3.41 1.70 - 6.10 x10(3)/[facility] Lymph % 25.8 % [facility] Lymphocytes Abs 1.5 0.9 - 3.2 x10(3)/[facility] Monocyte % 13.0 % [facility] Monocyte Abs 0.8 0.3 - 0.9 x10(3)/[facility] Eos % 2.0 % [facility] Eosinophils Abs 0.1 0.0 - 0.4 x10(3)/[facility] Basophil % 1.0 % [facility] Baso Absolute 0.1 0.0 - 0.1 x10(3)/[facility] Immature Gran % 0.50 % [facility] Comment: Immature granulocytes(IG's)percentage and absolute count will include metamyelocytes, myelocytes, and promyelocytes. Blood smears from CBCs yielding IG's will be scanned manually for concordance. If this scan disagrees with the automated IG or if promyelocytes are noted, a manual differential will be performed. Immature Gran Absolute 0.03 0.00 - 0.04 x10(3)/[facility] Blood specimen (specimen) 11/15/2019 1:36 AM EDT 11/15/2019 2:02 AM EDT Narrative Resulting Agency Comment Spec In Lab Tu Reyes MD HEMATOLOGY ORDERABLE S [facility] [place] [address] * (ABNORMAL) Hemogram (11/15/2019 1:36 AM EDT) White Blood Cell 5.9 4.0 - 9.5 x10(3)/mc L [facility] Red Blood Cell 3.82(L) 4.58 - 5.54 x10(6)/mc L [facility] Hemoglobin 11.8(L) 13.7 - 16.5 gm/dL [facility] Hematocrit 35.6(L) 40.5 - 48.5 % [facility] Mean Cell Volume 93.2(H) 82.9 - 93.1 fL [facility] Mean Cell Hemoglobin 30.9 27.5 - 32.1 pg [facility] Mean Cell Hemoglobin Concentration 33.1 32.0 - 35.7 gm/dL [facility] Platelet 235 145 - 357 x10(3)/mc L [facility] RDW Standard Deviation 44.7 36.0 - 45.0 fL [facility] RDW coefficient of variation 13.0 11.4 - 13.8 % [facility] Mean Platelet Volume 10.4 7.6 - 12.9 fL [facility] NRBC% auto 0.0 % [facility] NRBC Absolute 0.000 0.000 - 0.000 x10(3)/mc L [facility] Blood specimen (specimen) 11/15/2019 1:36 AM EDT 11/15/2019 2:02 AM EDT Narrative Resulting Agency Comment Spec In Lab Tu Reyes MD HEMATOLOGY ORDERABLE S [facility] [place] [address] * (ABNORMAL) Basic Metabolic Panel (non-fasting) (11/15/2019 1:36 AM EDT) Glucose 113 65 - 199 mg/dL [facility] Comment:Diabetes: >=200 mg/d L plus symptoms Blood Urea Nitrogen 9(L) 10 - 20 mg/dL [facility] Creatinine 0.92 0.80 - 1.50 mg/dL [facility] Sodium 138 135 - 145 mmol/L [facility] Potassium 4.2 3.5 - 5.0 mmol/L [facility] Comment: Please note: ??Patients with WBC >100,000 may have falsely elevated Potassium levels. ??For accurate Potassium quantification in these patients send serum separator tube (gold top) for subsequent determinations. ??Contact the Clinical Chemistry Laboratory if there are any questions. Chloride 105 98 - 107 mmol/L [facility] Carbon Dioxide 26 22 - 31 mmol/L [facility] Anion Gap 7 5 - 15 mmol/L [facility] Calcium 8.6 8.5 - 10.5 mg/dL [facility] Est Glomerular Filtration Rate 82 >=60 mL/min/1. 73 m?? [facility] Comment: The eGFR was calculated using the CKD-EPI equation. As with all creatinine based estimates of kidney function, eGFR values calculated with the CKD-EPI equation are not accurate in patients with acute kidney failure, extremes of body mass or the acutely ill. [email or web address] eGFR 95 >=60 mL/min/1. 73 m?? [facility] Comment: The eGFR was calculated using the CKD-EPI equation. As with all creatinine based estimates of kidney function, eGFR values calculated with the CKD-EPI equation are not accurate in patients with acute kidney failure, extremes of body mass or the acutely ill. [email or web address] Blood specimen (specimen) 11/15/2019 1:36 AM EDT 11/15/2019 2:02 AM EDT Narrative Resulting Agency Comment Spec In Lab Casey Singh MD CHEMISTRY ORDERABLES Performing Organization Address [facility] Co de Phone Number [facility] [place] [address] * Valproic Acid Level, Total (11/15/2019 1:36 AM EDT) Valproic Acid 47 mg/L [facility] Comment: Therapeutic Range: Anticonvulsant Therapy: ??50-100 mg/L Manic Episodes Associated with Bipolar Disorder: ??50-125 mg/L Blood specimen (specimen) 11/15/2019 1:36 AM EDT 11/15/2019 2:02 AM EDT Narrative Resulting Agency Comment Spec In Lab Casey Singh MD CHEMISTRY ORDERABLES Performing Organization Address [facility] Co de Phone Number [facility] [place] [address] * POCT Glucose (11/14/2019 5:06 PM EDT) Glucose, POC 83 65 - 199 mg/dL [facility] Comment: Supplemental ranges: <140 mg/dL before meals <180 mg/dL all other times of the day Blood specimen (specimen) 11/14/2019 5:06 PM EDT 11/14/2019 5:06 PM EDT Casey Singh MD POINT OF CARE TEST O RDERABLES Performing Organization Address [facility] Co de Phone Number [facility] [place] [address] * POCT Glucose (11/14/2019 3:15 PM EDT) Glucose, POC 100 65 - 199 mg/dL [facility] Comment: Supplemental ranges: <140 mg/dL before meals <180 mg/dL all other times of the day Blood specimen (specimen) 11/14/2019 3:15 PM EDT 11/14/2019 3:15 PM EDT Casey Singh MD POINT OF CARE TEST O LORI [facility] [place] [address] * POCT Glucose (11/14/2019 1:59 PM EDT) Glucose, POC 90 65 - 199 mg/dL [facility] Comment: Supplemental ranges: <140 mg/dL before meals <180 mg/dL all other times of the day Blood specimen (specimen) 11/14/2019 1:59 PM EDT 11/14/2019 1:59 PM EDT Casey Singh MD POINT OF CARE TEST O LORI Performing Organization Address [facility]/ZIP Co de Phone Number [facility] [address] * IR Embolization Intracranial (11/14/2019 1:39 PM EDT) Anatomical Region Laterality Modality Head X-Ray Angiograph y Impressions 11/22/2019 4:10 PM EDT 1. 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 ??Cullman embolization of dural arteriovenous fistula with approximately [...] below. ? Electronically signed by: TALI Cheney [facility] ([phone]), at 11/22/2019 4:10 PM Narrative 11/22/2019 4:10 [...] ??815.1 mGy MATERIALS: Micropuncture set, 6 Fr Newport sheath, 5 Fr Impress Vert 125 cm selective catheter, 4 Fr Tempo Vertebral 100 cm selective catheter, 5 Fr Envoy MPC 100 cm guide catheter, 6 Fr Envoy MPC Angled 90 cm guide catheter, 2.7 Fr Wilton 1.5 cm 165 cm microcatheter, 2.7 Fr Wilton 3 cm 165 cm microcatheter, 1.5 Fr Sequoyah 165 cm microcatheter.012 NT Synchro-10 200 cm [...] cerebral angiography was performed each position. An Wilton microcatheter was directed to the left middle meningeal artery using the microwire. Hand injected biplane microcatheter angiogram was performed. The catheter was placed more distally in the parietal division of the left middle meningeal artery and hand injected biplane angiogram performed. From this position, Cullman was infused using standard protocol with continuous [...] directed to the external carotid artery. A Sequoyah microcatheter was directed to the occipital artery [...] of the distal external carotid artery by Cullman cast. The occipital branch of the left [...] 815.1 mGy MATERIALS: Micropuncture set, 6 Fr Newport sheath, 5 Fr Impress Vert 125cm selective catheter, 4 Fr Tempo Vertebral 100 cm selective catheter, 5 FrEnvoy MPC 100 cm guide catheter, 6 Fr Envoy MPC Angled 90 cm guide catheter, 2.7Fr Wilton 1.5 cm 165 cm microcatheter, 2.7 Fr Wilton 3 cm 165 cmmicrocatheter, 1.5 Fr Sequoyah 165 cm microcatheter.012 NT Synchro-10 200 cm microwire,.010 Asahi Chikai STR tip 200 cm microwire, .008 Hybrid STR 220 cmhydrophilic microwire, .035 J-tip 150 cm guidewire, .035 angle-tipped 150 cmhydrophilic guidewire, 6 Fr Angio-Seal VIP vascular closure device, Cullman 34 - 1 vial,Gregory 18 - 1 [...] biplanecerebral angiography was performed each position. An Wilton microcatheter wasdirected to the left middle meningeal artery using the microwire. Hand injectedbiplane microcatheter angiogram was performed. The catheter was placed moredistally in the parietal division of the left middle meningeal artery and handinjected biplane angiogram performed. From this position, Cullman was infused using standard protocol withcontinuous fluoroscopic [...] then directed to the externalcarotid artery. A Sequoyah microcatheter was directed to the occipital arteryusing [...] immediate complications. The patient was transferred to [facility] in stable condition. FINDINGS: LEFT COMMON CAROTID [...] of the posterior left convexity, CognardIII 2. Cullman embolization of dural arteriovenous fistula with aulsujncthnrs05% obliteration and return of normal flow in [...] EDT) pH, Arterial 7.45 7.35 - 7.45 [facility] PCO2, Arterial 35 35 - 45 mmHg [facility] PO2, Arterial 315(H) 85 - 104 mmHg [facility] Bicarbonate, Arterial 23.9 20.0 - 26.0 mmol/L [facility] Base Excess, Arterial -0.3 -3.0 - 3.0 mmol/L [facility] Hgb Blood Gas 14.0 13.7 - 16.5 gm/dL [facility] Oxyhemoglobin, Arterial 98.8(H) 94.0 - 97.0 % [facility] Carboxyhemoglob in, Arterial 0.4 % [facility] Comment: Nonsmokers: 0.5-1.5% COHB Smokers: Variable, but usually less than 10% Toxic: 20-30% COHB Lethal: Greater than 60% COHB Methemoglobin, Arterial 0.3 <=1.5 % [facility] Na Whole Blood 138 135 - 145 mmol/L [facility] K Whole Blood 3.8 3.5 - 5.0 mmol/L [facility] Comment: Please note: Patients with WBC >100,000 may have falsely elevated Potassium levels. Contact the Clinical Chemistry Laboratory if there are any questions. ICa Whole Blood 1.16 1.15 - 1.33 mmol/L [facility] Comment: Note: ??Total bilirubin higher than 20 mg/dL may lead to falsely low ionized calcium. CL Whole Blood 107 98 - 107 mmol/L [facility] Gluc Whole Bld 113 65 - 199 mg/dL [facility] Comment:Diabetes: >=200 mg/d L plus symptoms. Lactate WB 1.2 0.5 - 2.2 mmol/L [facility] FIO2 Art 60 % [facility] PF Ratio Art 525 [facility] Temp Art 36.3 Celsius [facility] Blood specimen (specimen) 11/14/2019 8:43 AM EDT 11/14/2019 8:43 AM EDT Casey Singh MD POINT OF CARE TEST O RDERABLES [facility] [place] [address] * Differential, Automated (11/14/2019 2:05 AM EDT) Neutrophil % 48.4 % [facility] Neutrophil Absolute 2.80 1.70 - 6.10 x10(3)/[facility] Lymph % 34.5 % [facility] Lymphocytes Abs 2.0 0.9 - 3.2 x10(3)/[facility] Monocyte % 11.1 % [facility] Monocyte Abs 0.6 0.3 - 0.9 x10(3)/[facility] Eos % 4.8 % [facility] Eosinophils Abs 0.3 0.0 - 0.4 x10(3)/[facility] Basophil % 1.0 % [facility] Baso Absolute 0.1 0.0 - 0.1 x10(3)/[facility] Immature Gran % 0.20 % [facility] Comment: Immature granulocytes(IG's)percentage and absolute count will include metamyelocytes, myelocytes, and promyelocytes. Blood smears from CBCs yielding IG's will be scanned manually for concordance. If this scan disagrees with the automated IG or if promyelocytes are noted, a manual differential will be performed. Immature Gran Absolute 0.01 0.00 - 0.04 x10(3)/[facility] Blood specimen (specimen) 11/14/2019 2:05 AM EDT 11/14/2019 2:11 AM EDT Narrative Resulting Agency Comment Spec In Lab Tu Reyes MD HEMATOLOGY ORDERABLE S [facility] [place] [address] * (ABNORMAL) Hemogram (11/14/2019 2:05 AM EDT) White Blood Cell 5.8 4.0 - 9.5 x10(3)/[facility] Red Blood Cell 4.21(L) 4.58 - 5.54 x10(6)/mc L [facility] Hemoglobin 12.9(L) 13.7 - 16.5 gm/dL [facility] Hematocrit 38.5(L) 40.5 - 48.5 % [facility] Mean Cell Volume 91.4 82.9 - 93.1 fL [facility] Mean Cell Hemoglobin 30.6 27.5 - 32.1 pg [facility] Mean Cell Hemoglobin Concentration 33.5 32.0 - 35.7 gm/dL [facility] Platelet 261 145 - 357 x10(3)/mc L [facility] RDW Standard Deviation 41.9 36.0 - 45.0 fL [facility] RDW coefficient of variation 12.6 11.4 - 13.8 % [facility] Mean Platelet Volume 10.0 7.6 - 12.9 fL [facility] NRBC% auto 0.0 % [facility] NRBC Absolute 0.000 0.000 - 0.000 x10(3)/mc L [facility] Blood specimen (specimen) 11/14/2019 2:05 AM EDT 11/14/2019 2:11 AM EDT Narrative Resulting Agency Comment Spec In Lab Tu Reyes MD HEMATOLOGY ORDERABLE S [facility] [place] [address] * Basic Metabolic Panel (non-fasting) (11/14/2019 2:05 AM EDT) Glucose 105 65 - 199 mg/dL [facility] Comment:Diabetes: >=200 mg/d L plus symptoms Blood Urea Nitrogen 14 10 - 20 mg/dL [facility] Creatinine 1.03 0.80 - 1.50 mg/dL [facility] Sodium 140 135 - 145 mmol/L [facility] Potassium 4.2 3.5 - 5.0 mmol/L [facility] Comment: Please note: ??Patients with WBC >100,000 may have falsely elevated Potassium levels. ??For accurate Potassium quantification in these patients send serum separator tube (gold top) for subsequent determinations. ??Contact the Clinical Chemistry Laboratory if there are any questions. Chloride 103 98 - 107 mmol/L [facility] Carbon Dioxide 25 22 - 31 mmol/L [facility] Anion Gap 12 5 - 15 mmol/L [facility] Calcium 9.2 8.5 - 10.5 mg/dL [facility] Est Glomerular Filtration Rate 72 >=60 mL/min/1. 73 m?? [facility] Comment: The eGFR was calculated using the CKD-EPI equation. As with all creatinine based estimates of kidney function, eGFR values calculated with the CKD-EPI equation are not accurate in patients with acute kidney failure, extremes of body mass or the acutely ill. [email or web address] eGFR 83 >=60 mL/min/1. 73 m?? [facility] Comment: The eGFR was calculated using the CKD-EPI equation. As with all creatinine based estimates of kidney function, eGFR values calculated with the CKD-EPI equation are not accurate in patients with acute kidney failure, extremes of body mass or the acutely ill. [email or web address] Blood specimen (specimen) 11/14/2019 2:05 AM EDT 11/14/2019 2:11 AM EDT Narrative Resulting Agency Comment Spec In Lab Casey Singh MD CHEMISTRY ORDERABLES Performing Organization Address [facility] Co de Phone Number [facility] [place] [address] * Valproic Acid Level, Total (11/14/2019 2:05 AM EDT) Valproic Acid 79 mg/L [facility] Comment: Therapeutic Range: Anticonvulsant Therapy: ??50-100 mg/L Manic Episodes Associated with Bipolar Disorder: ??50-125 mg/L Blood specimen (specimen) 11/14/2019 2:05 AM EDT 11/14/2019 2:11 AM EDT Narrative Resulting Agency Comment Spec In Lab Casey Singh MD CHEMISTRY ORDERABLES Performing Organization Address [facility] Co de Phone Number [facility] [place] [address] * POCT Glucose (11/13/2019 8:56 PM EDT) Glucose, POC 133 65 - 199 mg/dL [facility] Comment: Supplemental ranges: <140 mg/dL before meals <180 mg/dL all other times of the day Blood specimen (specimen) 11/13/2019 8:56 PM EDT 11/13/2019 8:56 PM EDT Casey Singh MD POINT OF CARE TEST O RDERAPAMELA Performing Organization Address [facility]/ZIP Co de Phone Number [facility] [place] [address] * POCT Glucose (11/13/2019 5:07 PM EDT) Glucose, POC 111 65 - 199 mg/dL [facility] Comment: Supplemental ranges: <140 mg/dL before meals <180 mg/dL all other times of the day Blood specimen (specimen) 11/13/2019 5:07 PM EDT 11/13/2019 5:07 PM EDT Casey Singh MD POINT OF CARE TEST O RDERAPAMELA Performing Organization Address [facility] Co de Phone Number [facility] [place] [address] * POCT Glucose (11/13/2019 11:56 AM EDT) Glucose, POC 127 65 - 199 mg/dL [facility] Comment: Supplemental ranges: <140 mg/dL before meals <180 mg/dL all other times of the day Blood specimen (specimen) 11/13/2019 11:56 AM EDT 11/13/2019 11:56 AM EDT Casey Singh MD POINT OF CARE TEST O LORI Performing Organization Address [facility] Co de Phone Number [facility] [place] [address] * POCT Glucose (11/13/2019 7:48 AM EDT) Glucose, POC 101 65 - 199 mg/dL [facility] Comment: Supplemental ranges: <140 mg/dL before meals <180 mg/dL all other times of the day Blood specimen (specimen) 11/13/2019 7:48 AM EDT 11/13/2019 7:48 AM EDT Casey Singh MD POINT OF CARE TEST O RDERABLES Performing Organization Address City/[facility]/ZIP Co de Phone Number [facility] [place] [address] * Differential, Automated (11/13/2019 2:03 AM EDT) Pathologist [facility] Neutrophil % 49.7 % [facility] Neutrophil Absolute 3.15 1.70 - 6.10 x10(3)/[facility] LAB[facility] Lymph % 33.8 % [facility] Lymphocytes Abs 2.1 0.9 - 3.2 x10(3)/[facility] LABOR[facility]ORY Monocyte % 9.5 % [facility] Monocyte Abs 0.6 0.3 - 0.9 x10(3)/[facility] LABOR[facility]ORY Eos % 5.8 % [facility] Eosinophils Abs 0.4 0.0 - 0.4 x10(3)/[facility] LABOR[facility]ORY Basophil % 0.9 % [facility] Baso Absolute 0.1 0.0 - 0.1 x10(3)/[facility] LABOR[facility]ORY Immature Gran % 0.30 % [facility] Comment: Immature granulocytes(IG's)percentage and absolute count will include metamyelocytes, myelocytes, and promyelocytes. Blood smears from CBCs yielding IG's will be scanned manually for concordance. If this scan disagrees with the automated IG or if promyelocytes are noted, a manual differential will be performed. Immature Gran Absolute 0.02 0.00 - 0.04 x10(3)/[facility] LAB[facility]ORY Blood specimen (specimen) 11/13/2019 2:03 AM EDT 11/13/2019 2:15 AM EDT Narrative Resulting Agency Comment Spec In Lab Tu Reyes MD HEMATOLOGY ORDERABLE S Performing Organization Address City/[facility]/ZIP Co de Phone Number [facility] [place] [address] * (ABNORMAL) Hemogram (11/13/2019 2:03 AM EDT) [facility] White Blood Cell 6.3 4.0 - 9.5 x10(3)/[facility] LABORATORY Red Blood Cell 4.26(L) 4.58 - 5.54 x10(6)/[facility] LABORATORY Hemoglobin 12.9(L) 13.7 - 16.5 gm/dL [facility] Hematocrit 39.1(L) 40.5 - 48.5 % [facility] Mean Cell Volume 91.8 82.9 - 93.1 [facility] LABORATORY Mean Cell Hemoglobin 30.3 27.5 - 32.1 pg [facility] Mean Cell Hemoglobin Concentration 33.0 32.0 - 35.7 gm/dL [facility] Platelet 250 145 - 357 x10(3)/[facility] LABORATORY RDW Standard Deviation 43.2 36.0 - 45.0 [facility] LAB[facility]ATORY RDW coefficient of variation 12.8 11.4 - 13.8 % [facility] Mean Platelet Volume 10.2 7.6 - 12.9 [facility]ORY NRBC% auto 0.0 % [facility] NRBC Absolute 0.000 0.000 - 0.000 x10(3)/[facility] LAB[facility]ATORY Blood specimen (specimen) 11/13/2019 2:03 AM EDT 11/13/2019 2:15 AM EDT Narrative Resulting Agency Comment Spec In Lab Tu Reyes MD HEMATOLOGY ORDERABLE S [facility] [place] [address] * Basic Metabolic Panel (non-fasting) (11/13/2019 2:03 AM EDT) [facility] Glucose 104 65 - 199 mg/dL [facility] Comment:Diabetes: >=200 mg/d L plus symptoms Blood Urea Nitrogen 15 10 - 20 mg/dL [facility] Creatinine 0.90 0.80 - 1.50 mg/dL [facility] Sodium 137 135 - 145 mmol/L [facility] Potassium 4.1 3.5 - 5.0 mmol/L [facility] Comment: Please note: ??Patients with WBC >100,000 may have falsely elevated Potassium levels. ??For accurate Potassium quantification in these patients send serum separator tube (gold top) for subsequent determinations. ??Contact the Clinical Chemistry Laboratory if there are any questions. Chloride 103 98 - 107 mmol/L [facility] Carbon Dioxide 24 22 - 31 mmol/L [facility] Anion Gap 10 5 - 15 mmol/L [facility] Calcium 9.1 8.5 - 10.5 mg/dL [facility] Est Glomerular Filtration Rate 84 >=60 mL/min/1. 73 m?? [facility] Comment: The eGFR was calculated using the CKD-EPI equation. As with all creatinine based estimates of kidney function, eGFR values calculated with the CKD-EPI equation are not accurate in patients with acute kidney failure, extremes of body mass or the acutely ill. [email or web address] eGFR 98 >=60 mL/min/1. 73 m?? [facility] Comment: The eGFR was calculated using the CKD-EPI equation. As with all creatinine based estimates of kidney function, eGFR values calculated with the CKD-EPI equation are not accurate in patients with acute kidney failure, extremes of body mass or the acutely ill. [email or web address] Blood specimen (specimen) 11/13/2019 2:03 AM EDT 11/13/2019 2:15 AM EDT Narrative Resulting Agency Comment Spec In Lab Casey Singh MD CHEMISTRY ORDERABLES [facility] [place] [address] * Valproic Acid Level, Total (11/13/2019 2:03 AM EDT) Valproic Acid 55 mg/L [facility] Comment: Therapeutic Range: Anticonvulsant Therapy: ??50-100 mg/L Manic Episodes Associated with Bipolar Disorder: ??50-125 mg/L Blood specimen (specimen) 11/13/2019 2:03 AM EDT 11/13/2019 2:15 AM EDT Narrative Resulting Agency Comment Spec In Lab Casey Singh MD CHEMISTRY ORDERABLES Performing Organization Address City/[facility]/ZIP Co de Phone Number [facility] [place] [address] * POCT Glucose (11/12/2019 8:32 PM EDT) Glucose, POC 121 65 - 199 mg/dL [facility] Comment: Supplemental ranges: <140 mg/dL before meals <180 mg/dL all other times of the day Blood specimen (specimen) 11/12/2019 8:32 PM EDT 11/12/2019 8:32 PM EDT Casey Singh MD POINT OF CARE TEST O RDERABLES Performing Organization Address [facility] Co de Phone Number [facility] [place] [address] * POCT Glucose (11/12/2019 6:14 PM EDT) Glucose, POC 131 65 - 199 mg/dL [facility] Comment: Supplemental ranges: <140 mg/dL before meals <180 mg/dL all other times of the day Blood specimen (specimen) 11/12/2019 6:14 PM EDT 11/12/2019 6:14 PM EDT Casey Singh MD POINT OF CARE TEST O RDERABLES Performing Organization Address [facility] Co de Phone Number [facility] [place] [address] * POCT Glucose (11/12/2019 12:02 PM EDT) Glucose, POC 130 65 - 199 mg/dL [facility] Comment: Supplemental ranges: <140 mg/dL before meals <180 mg/dL all other times of the day Blood specimen (specimen) 11/12/2019 12:02 PM EDT 11/12/2019 12:02 PM EDT Casey Singh MD POINT OF CARE TEST O LORI Performing Organization Address [facility] Co de Phone Number [facility] [place] [address] * POCT Glucose (11/12/2019 7:29 AM EDT) Glucose, POC 123 65 - 199 mg/dL [facility] Comment: Supplemental ranges: <140 mg/dL before meals <180 mg/dL all other times of the day Blood specimen (specimen) 11/12/2019 7:29 AM EDT 11/12/2019 7:29 AM EDT Casey Singh MD POINT OF CARE TEST O LORI Performing Organization Address [facility] Co de Phone Number [facility] [place] [address] * (ABNORMAL) Urinalysis with reflex Culture (11/12/2019 2:11 AM EDT) Glucose, Urine Dipstick Negative Negative mg/dL [facility] Protein, Urine Dipstick Negative Negative mg/dL [facility] Bilirubin, Urine Dipstick Negative Negative mg/dL [facility] Comment: Clinical correlation required for positive Urine Bilirubin results as false positive may occur with some drugs and drug related products. If a false positive is suspected a serum total bilirubin should be considered if clinically indicated. Urobilinogen, Urine Dipstick Normal Normal mg/dL [facility] pH, Urn (dipstick) 6.5 5.0 - 8.0 [facility] Blood, Urine Dipstick Negative Negative mg/dL [facility] Ketone, Urine Dipstick Trace(A) Negative mg/dL [facility] Nitrite, Urine Dipstick Negative Negative [facility] Leukocytes, Urine Dipstick Negative Negative [facility] Appearance, Urine Dipstick Clear Clear [facility] Specific [place] Urine Automated 1.019 1.006 - 1.030 [facility] Color, Urine Dipstick Yellow Yellow [facility] Reflex to Culture No [facility] Urine specimen (specimen) 11/12/2019 2:11 AM EDT 11/12/2019 2:27 AM EDT Narrative Resulting Agency Comment Spec In Lab Casey Singh MD URINE ORDERABLES [facility] [place] [address] * Differential, Automated (11/12/2019 1:33 AM EDT) Neutrophil % 56.2 % [facility] Neutrophil Absolute 3.59 1.70 - 6.10 x10(3)/[facility] LABORATORY Lymph % 29.4 % [facility] Lymphocytes Abs 1.9 0.9 - 3.2 x10(3)/[facility] LABORATORY Monocyte % 10.5 % [facility] Monocyte Abs 0.7 0.3 - 0.9 x10(3)/[facility] LABORATORY Eos % 2.7 % [facility] Eosinophils Abs 0.2 0.0 - 0.4 x10(3)/[facility] LABORATORY Basophil % 0.9 % [facility] Baso Absolute 0.1 0.0 - 0.1 x10(3)/[facility] LABORATORY Immature Gran % 0.30 % [facility] Comment: Immature granulocytes(IG's)percentage and absolute count will include metamyelocytes, myelocytes, and promyelocytes. Blood smears from CBCs yielding IG's will be scanned manually for concordance. If this scan disagrees with the automated IG or if promyelocytes are noted, a manual differential will be performed. Immature Gran Absolute 0.02 0.00 - 0.04 x10(3)/mcL [facility] Blood specimen (specimen) 11/12/2019 1:33 AM EDT 11/12/2019 1:49 AM EDT Narrative Resulting Agency Comment Spec In Lab Tu Reyes MD HEMATOLOGY ORDERABLE S [facility] [place] [address] * (ABNORMAL) Hemogram (11/12/2019 1:33 AM EDT) White Blood Cell 6.4 4.0 - 9.5 x10(3)/[facility] LABORATORY Red Blood Cell 4.19(L) 4.58 - 5.54 x10(6)/[facility] LABORATORY Hemoglobin 12.9(L) 13.7 - 16.5 gm/dL [facility] Hematocrit 39.3(L) 40.5 - 48.5 % [facility] Mean Cell Volume 93.8(H) 82.9 - 93.1 [facility] LABORATORY Mean Cell Hemoglobin 30.8 27.5 - 32.1 pg [facility] Mean Cell Hemoglobin Concentration 32.8 32.0 - 35.7 gm/dL [facility] Platelet 219 145 - 357 x10(3)/[facility] LABORATORY RDW Standard Deviation 44.3 36.0 - 45.0 [facility] LABORATORY RDW coefficient of variation 13.0 11.4 - 13.8 % [facility] Mean Platelet Volume 9.9 7.6 - 12.9 [facility] NRBC% auto 0.0 % [facility] NRBC Absolute 0.000 0.000 - 0.000 x10(3)/[facility] LABORATORY Blood specimen (specimen) 11/12/2019 1:33 AM EDT 11/12/2019 1:49 AM EDT Narrative Resulting Agency Comment Spec In Lab Tu Reyes MD HEMATOLOGY ORDERABLE S [facility] [place] [address] * Basic Metabolic Panel (non-fasting) (11/12/2019 1:33 AM EDT) Glucose 134 65 - 199 mg/dL [facility] Comment:Diabetes: >=200 mg/d L plus symptoms Blood Urea Nitrogen 11 10 - 20 mg/dL [facility] Creatinine 0.98 0.80 - 1.50 mg/dL [facility] Sodium 139 135 - 145 mmol/L [facility] Potassium 4.1 3.5 - 5.0 mmol/L [facility] Comment: Please note: ??Patients with WBC >100,000 may have falsely elevated Potassium levels. ??For accurate Potassium quantification in these patients send serum separator tube (gold top) for subsequent determinations. ??Contact the Clinical Chemistry Laboratory if there are any questions. Chloride 102 98 - 107 mmol/L [facility] Carbon Dioxide 25 22 - 31 mmol/L [facility] Anion Gap 12 5 - 15 mmol/L [facility] Calcium 9.2 8.5 - 10.5 mg/dL [facility] Est Glomerular Filtration Rate 76 >=60 mL/min/1. 73 m?? [facility] Comment: The eGFR was calculated using the CKD-EPI equation. As with all creatinine based estimates of kidney function, eGFR values calculated with the CKD-EPI equation are not accurate in patients with acute kidney failure, extremes of body mass or the acutely ill. [email or web address] eGFR 88 >=60 mL/min/1. 73 m?? [facility] Comment: The eGFR was calculated using the CKD-EPI equation. As with all creatinine based estimates of kidney function, eGFR values calculated with the CKD-EPI equation are not accurate in patients with acute kidney failure, extremes of body mass or the acutely ill. [email or web address] Blood specimen (specimen) 11/12/2019 1:33 AM EDT 11/12/2019 1:49 AM EDT Narrative Resulting Agency Comment Spec In Lab Casey Singh MD CHEMISTRY ORDERABLES Performing Organization Address [facility] Co de Phone Number [facility] [place] [address] * Valproic Acid Level, Total (11/12/2019 1:33 AM EDT) Valproic Acid 22 mg/L [facility] Comment: Therapeutic Range: Anticonvulsant Therapy: ??50-100 mg/L Manic Episodes Associated with Bipolar Disorder: ??50-125 mg/L Blood specimen (specimen) 11/12/2019 1:33 AM EDT 11/12/2019 1:49 AM EDT Narrative Resulting Agency Comment Spec In Lab Casey Singh MD CHEMISTRY ORDERABLES Performing Organization Address [facility] Co de Phone Number [facility] [place] [address] * Hepatic Function Panel (11/12/2019 1:33 AM EDT) Protein, Total 6.3 6.1 - 8.0 gm/dL [facility] Albumin 3.6 3.2 - 5.2 gm/dL [facility] Aspartate Aminotransferase 21 0 - 39 unit/L [facility] Alanine Aminotransferase 18 0 - 55 unit/L [facility] Alkaline Phosphatase 48 40 - 130 unit/L [facility] Bilirubin, Total 0.5 0.2 - 1.3 mg/dL [facility] Bilirubin, Direct 0.1 0.0 - 0.3 mg/dL [facility] Blood specimen (specimen) 11/12/2019 1:33 AM EDT 11/12/2019 1:49 AM EDT Narrative Resulting Agency Comment Spec In Lab Casey Singh MD CHEMISTRY ORDERABLES Performing Organization Address [facility] Co de Phone Number [facility] [place] [address] * (ABNORMAL) Ammonia (11/12/2019 1:33 AM EDT) Ammonia 12(L) 16 - 60 mcmol/L [facility] Blood specimen (specimen) 11/12/2019 1:33 AM EDT 11/12/2019 1:45 AM EDT Narrative Resulting Agency Comment Spec In Lab Casey Singh MD CHEMISTRY ORDERABLES Performing Organization Address [facility] de Phone Number [facility] [place] [address] * CT Head wo Contrast (Generic) (11/11/2019 [...] Glucose, POC 93 65 - 199 mg/dL [facility] Comment: Supplemental ranges: <140 mg/dL before meals <180 mg/dL all other times of the day Blood specimen (specimen) 11/11/2019 5:06 PM EDT 11/11/2019 5:06 PM EDT Casey Singh MD POINT OF CARE TEST O RDERABLES [facility] [place] [address] * POCT Glucose (11/11/2019 11:44 AM EDT) Glucose, POC 178 65 - 199 mg/dL [facility] Comment: Supplemental ranges: <140 mg/dL before meals <180 mg/dL all other times of the day Blood specimen (specimen) 11/11/2019 11:44 AM EDT 11/11/2019 11:44 AM EDT Casey Singh MD POINT OF CARE TEST O RDERAPAMELA Performing Organization Address [facility] Co de Phone Number [facility] [place] [address] * POCT Glucose (11/11/2019 8:49 AM EDT) Glucose, POC 139 65 - 199 mg/dL [facility] Comment: Supplemental ranges: <140 mg/dL before meals <180 mg/dL all other times of the day Blood specimen (specimen) 11/11/2019 8:49 AM EDT 11/11/2019 8:49 AM EDT Casey Singh MD POINT OF CARE TEST O LORI Performing Organization Address [facility] Co de Phone Number [facility] [place] [address] * Differential, Automated (11/11/2019 2:07 AM EDT) Neutrophil % 63.6 % [facility] Neutrophil Absolute 4.64 1.70 - 6.10 x10(3)/[facility] LABORATORY Lymph % 21.8 % [facility] Lymphocytes Abs 1.6 0.9 - 3.2 x10(3)/[facility] LABORATORY Monocyte % 9.6 % [facility] Monocyte Abs 0.7 0.3 - 0.9 x10(3)/[facility] LABORATORY Eos % 3.6 % [facility] Eosinophils Abs 0.3 0.0 - 0.4 x10(3)/[facility] LABORATORY Basophil % 1.1 % [facility] Baso Absolute 0.1 0.0 - 0.1 x10(3)/[facility] LABORATORY Immature Gran % 0.30 % [facility] Comment: Immature granulocytes(IG's)percentage and absolute count will include metamyelocytes, myelocytes, and promyelocytes. Blood smears from CBCs yielding IG's will be scanned manually for concordance. If this scan disagrees with the automated IG or if promyelocytes are noted, a manual differential will be performed. Immature Gran Absolute 0.02 0.00 - 0.04 x10(3)/mcL [facility] Blood specimen (specimen) 11/11/2019 2:07 AM EDT 11/11/2019 2:16 AM EDT Narrative Resulting Agency Comment Spec In Lab Tu Reyes MD HEMATOLOGY ORDERABLE S [facility] [place] [address] * (ABNORMAL) Hemogram (11/11/2019 2:07 AM EDT) White Blood Cell 7.3 4.0 - 9.5 x10(3)/mc L [facility] Red Blood Cell 4.25(L) 4.58 - 5.54 x10(6)/mc L [facility] Hemoglobin 13.0(L) 13.7 - 16.5 gm/dL [facility] Hematocrit 40.3(L) 40.5 - 48.5 % [facility] Mean Cell Volume 94.8(H) 82.9 - 93.1 fL [facility] Mean Cell Hemoglobin 30.6 27.5 - 32.1 pg [facility] Mean Cell Hemoglobin Concentration 32.3 32.0 - 35.7 gm/dL [facility] Platelet 228 145 - 357 x10(3)/mc L [facility] RDW Standard Deviation 44.6 36.0 - 45.0 fL [facility] RDW coefficient of variation 13.0 11.4 - 13.8 % [facility] Mean Platelet Volume 10.1 7.6 - 12.9 fL [facility] NRBC% auto 0.0 % [facility] NRBC Absolute 0.000 0.000 - 0.000 x10(3)/mc L [facility] Blood specimen (specimen) 11/11/2019 2:07 AM EDT 11/11/2019 2:16 AM EDT Narrative Resulting Agency Comment Spec In Lab Tu Reyes MD HEMATOLOGY ORDERABLE S [facility] [place] [address] * Basic Metabolic Panel (non-fasting) (11/11/2019 2:07 AM EDT) Glucose 150 65 - 199 mg/dL [facility] Comment:Diabetes: >=200 mg/d L plus symptoms Blood Urea Nitrogen 12 10 - 20 mg/dL [facility] Creatinine 1.17 0.80 - 1.50 mg/dL [facility] Sodium 141 135 - 145 mmol/L [facility] Potassium 4.6 3.5 - 5.0 mmol/L [facility] Comment: Please note: ??Patients with WBC >100,000 may have falsely elevated Potassium levels. ??For accurate Potassium quantification in these patients send serum separator tube (gold top) for subsequent determinations. ??Contact the Clinical Chemistry Laboratory if there are any questions. Chloride 102 98 - 107 mmol/L [facility] Carbon Dioxide 29 22 - 31 mmol/L [facility] Anion Gap 10 5 - 15 mmol/L [facility] Calcium 8.9 8.5 - 10.5 mg/dL [facility] Est Glomerular Filtration Rate 61 >=60 mL/min/1. 73 m?? [facility] [facility] Comment: The eGFR was calculated using the CKD-EPI equation. As with all creatinine based estimates of kidney function, eGFR values calculated with the CKD-EPI equation are not accurate in patients with acute kidney failure, extremes of body mass or the acutely ill. [email or web address] eGFR 71 >=60 mL/min/1. 73 m?? [facility] Comment: The eGFR was calculated using the CKD-EPI equation. As with all creatinine based estimates of kidney function, eGFR values calculated with the CKD-EPI equation are not accurate in patients with acute kidney failure, extremes of body mass or the acutely ill. [email or web address] Blood specimen (specimen) 11/11/2019 2:07 AM EDT 11/11/2019 2:16 AM EDT Narrative Resulting Agency Comment Spec In Lab Casey Singh MD CHEMISTRY ORDERABLES Performing Organization Address [facility] Co de Phone Number [facility] [place] [address] * POCT Glucose (11/10/2019 10:12 PM EDT) Glucose, POC 161 65 - 199 mg/dL [facility] Comment: Supplemental ranges: <140 mg/dL before meals <180 mg/dL all other times of the day Blood specimen (specimen) 11/10/2019 10:12 PM EDT 11/10/2019 10:12 PM EDT Casey Singh MD POINT OF CARE TEST O RDERABLES Performing Organization Address [facility] de Phone Number [facility] [place] [address] * POCT Glucose (11/10/2019 5:04 PM EDT) Glucose, POC 100 65 - 199 mg/dL [facility] Comment: Supplemental ranges: <140 mg/dL before meals <180 mg/dL all other times of the day Blood specimen (specimen) 11/10/2019 5:04 PM EDT 11/10/2019 5:04 PM EDT Casey Singh MD POINT OF CARE TEST O RDERAPAMELA [facility] [place] [address] * POCT Glucose (11/10/2019 2:31 PM EDT) Glucose, POC 93 65 - 199 mg/dL [facility] Comment: Supplemental ranges: <140 mg/dL before meals <180 mg/dL all other times of the day Blood specimen (specimen) 11/10/2019 2:31 PM EDT 11/10/2019 2:31 PM EDT Casey Singh MD POINT OF CARE TEST O RDERAPAMELA Performing Organization Address [facility] Co de Phone Number [facility] [place] [address] * POCT Glucose (11/10/2019 11:30 AM EDT) Glucose, POC 93 65 - 199 mg/dL [facility] Comment: Supplemental ranges: <140 mg/dL before meals <180 mg/dL all other times of the day Blood specimen (specimen) 11/10/2019 11:30 AM EDT 11/10/2019 11:30 AM EDT Casey Singh MD POINT OF CARE TEST O LORI Performing Organization Address [facility] Co de Phone Number [facility] [place] [address] * POCT Glucose (11/10/2019 10:59 AM EDT) Glucose, POC 105 65 - 199 mg/dL [facility] Comment: Supplemental ranges: <140 mg/dL before meals <180 mg/dL all other times of the day Blood specimen (specimen) 11/10/2019 10:59 AM EDT 11/10/2019 10:59 AM EDT Casey Singh MD POINT OF CARE TEST O LORI [facility] [place] [address] * POCT Glucose (11/10/2019 8:12 AM EDT) Glucose, POC 139 65 - 199 mg/dL [facility] Comment: Supplemental ranges: <140 mg/dL before meals <180 mg/dL all other times of the day Blood specimen (specimen) 11/10/2019 8:12 AM EDT 11/10/2019 8:12 AM EDT Casey Singh MD POINT OF CARE [place] [address] * Differential, Automated (11/10/2019 1:27 AM EDT) [facility] Neutrophil % 54.6 % [facility] Neutrophil Absolute 3.07 1.70 - 6.10 x10(3)/[facility] LAB[facility] Lymph % 28.6 % [facility] Lymphocytes Abs 1.6 0.9 - 3.2 x10(3)/[facility] LAB[facility] Monocyte % 10.0 % [facility] Monocyte Abs 0.6 0.3 - 0.9 x10(3)/[facility] LAB[facility] Eos % 5.0 % [facility] Eosinophils Abs 0.3 0.0 - 0.4 x10(3)/[facility] LAB[facility] Basophil % 1.6 % [facility] Baso Absolute 0.1 0.0 - 0.1 x10(3)/[facility] LABOR[facility]ORY Immature Gran % 0.20 % [facility] Comment: Immature granulocytes(IG's)percentage and absolute count will include metamyelocytes, myelocytes, and promyelocytes. Blood smears from CBCs yielding IG's will be scanned manually for concordance. If this scan disagrees with the automated IG or if promyelocytes are noted, a manual differential will be performed. Immature Gran Absolute 0.01 0.00 - 0.04 x10(3)/[facility] LAB[facility] Blood specimen (specimen) 11/10/2019 1:27 AM EDT 11/10/2019 1:41 AM EDT Narrative Resulting Agency Comment Spec In Lab Maty Mcfadden MULTI DISCIPLINED LANGUAGE ANALYST HEMATOLOGY ORDERABLE S [facility] [place] [address] * (ABNORMAL) Hemogram (11/10/2019 1:27 AM EDT) White Blood Cell 5.6 4.0 - 9.5 x10(3)/[facility] LABORATORY Red Blood Cell 4.51(L) 4.58 - 5.54 x10(6)/[facility] LABORATORY Hemoglobin 13.6(L) 13.7 - 16.5 gm/dL [facility] Hematocrit 41.6 40.5 - 48.5 % [facility] Mean Cell Volume 92.2 82.9 - 93.1 [facility] LABORATORY Mean Cell Hemoglobin 30.2 27.5 - 32.1 pg [facility] Mean Cell Hemoglobin Concentration 32.7 32.0 - 35.7 gm/dL [facility] Platelet 232 145 - 357 x10(3)/[facility] LABORATORY RDW Standard Deviation 43.6 36.0 - 45.0 [facility] LAB[facility]ATORY RDW coefficient of variation 12.8 11.4 - 13.8 % [facility] Mean Platelet Volume 10.2 7.6 - 12.9 [facility] LAB[facility]ATORY NRBC% auto 0.0 % [facility] NRBC Absolute 0.000 0.000 - 0.000 x10(3)/[facility] LAB[facility]ATORY Blood specimen (specimen) 11/10/2019 1:27 AM EDT 11/10/2019 1:41 AM EDT Narrative Resulting Agency Comment Spec In Lab Maty Mcfaddne MULTI DISCIPLINED LANGUAGE ANALYST HEMATOLOGY ORDERABLE S [facility] [place] [address] * Basic Metabolic Panel (non-fasting) (11/10/2019 1:27 AM EDT) Glucose 121 65 - 199 mg/dL [facility] Comment:Diabetes: >=200 mg/d L plus symptoms Blood Urea Nitrogen 13 10 - 20 mg/dL [facility] Creatinine 0.97 0.80 - 1.50 mg/dL [facility] Sodium 140 135 - 145 mmol/L [facility] Potassium 3.9 3.5 - 5.0 mmol/L [facility] Comment: Please note: ??Patients with WBC >100,000 may have falsely elevated Potassium levels. ??For accurate Potassium quantification in these patients send serum separator tube (gold top) for subsequent determinations. ??Contact the Clinical Chemistry Laboratory if there are any questions. Chloride 103 98 - 107 mmol/L [facility] Carbon Dioxide 27 22 - 31 mmol/L [facility] Anion Gap 10 5 - 15 mmol/L [facility] Calcium 9.2 8.5 - 10.5 mg/dL [facility] Est Glomerular Filtration Rate 77 >=60 mL/min/1. 73 m?? [facility] Comment: The eGFR was calculated using the CKD-EPI equation. As with all creatinine based estimates of kidney function, eGFR values calculated with the CKD-EPI equation are not accurate in patients with acute kidney failure, extremes of body mass or the acutely ill. [email or web address] eGFR 89 >=60 mL/min/1. 73 m?? [facility] Comment: The eGFR was calculated using the CKD-EPI equation. As with all creatinine based estimates of kidney function, eGFR values calculated with the CKD-EPI equation are not accurate in patients with acute kidney failure, extremes of body mass or the acutely ill. [email or web address] Blood specimen (specimen) 11/10/2019 1:27 AM EDT 11/10/2019 1:41 AM EDT Narrative Resulting Agency Comment Spec In Lab Casey Singh MD CHEMISTRY ORDERABLES Performing Organization Address [facility]/ZIP Co de Phone Number [facility] [place] [address] * POCT Glucose (11/09/2019 10:18 PM EDT) Glucose, POC 161 65 - 199 mg/dL [facility] Comment: Supplemental ranges: <140 mg/dL before meals <180 mg/dL all other times of the day Blood specimen (specimen) 11/09/2019 10:18 PM EDT 11/09/2019 10:18 PM EDT Casey Singh MD POINT OF CARE TEST O RDERABLES Performing Organization Address [facility] Co de Phone Number [facility] [place] [address] * POCT Glucose (11/09/2019 4:17 PM EDT) Glucose, POC 77 65 - 199 mg/dL [facility] Comment: Supplemental ranges: <140 mg/dL before meals <180 mg/dL all other times of the day Blood specimen (specimen) 11/09/2019 4:17 PM EDT 11/09/2019 4:17 PM EDT Casey Singh MD POINT OF CARE TEST O RDCATRACHO Performing Organization Address [facility] Co de Phone Number [facility] [place] [address] * ABORH Recheck Status (11/09/2019 12:21 PM EDT) ABORH Type Recheck Completed [facility] Blood specimen (specimen) 11/09/2019 12:21 PM EDT 11/09/2019 12:49 PM EDT Narrative Resulting Agency Comment Spec In Lab Charlene Louis MD BLOOD BANK LAB ORDER EMILIANO Performing Organization Address City/[facility]/ZIP Co de Phone Number [facility] [place] [address] * Antibody screen (11/09/2019 12:21 PM EDT) Ab Screen Interp Negative [facility] Expires at [id number] on: 11/12/2019 [facility] Blood specimen (specimen) 11/09/2019 12:21 PM EDT 11/09/2019 12:49 PM EDT Narrative Resulting Agency Comment Spec In Lab Charlene Louis MD BLOOD BANK LAB ORDER EMILIANO Performing Organization Address City/[facility]/ZIP Co de Phone Number [facility] [place] [address] * ABO/Rh Typing (11/09/2019 12:21 PM EDT) ABORH Type B Pos [facility] Blood specimen (specimen) 11/09/2019 12:21 PM EDT 11/09/2019 12:49 PM EDT Narrative Resulting Agency Comment Spec In Lab Charlene Louis MD BLOOD BANK LAB ORDER EMILIANO Performing Organization Address City/[facility]/ZIP Co de Phone Number [facility] [place] [address] * APTT (11/09/2019 12:21 PM EDT) Partial Thromboplastin Time 30 25 - 37 sec [facility] Comment: The PTT is NOT appropriate for heparin monitoring. Use the Anti-Xa level for heparin monitoring (HEP UFH) or LMWH monitoring (HEP LMW). A PTT less than 37 seconds generally indicates adequate hemostasis. Blood specimen (specimen) 11/09/2019 12:21 PM EDT 11/09/2019 12:21 PM EDT Narrative Resulting Agency Comment Spec In Lab Casey Singh MD HEMATOLOGY ORDERABLE S Performing Organization Address City/[facility]/ZIP Co de Phone Number [facility] [place] [address] * Prothrombin Time (11/09/2019 12:21 PM EDT) Prothrombin Time 11.7 9.4 - 12.5 sec [facility] International Normalization Ratio 1.0 [facility] Comment: An INR <2.0 indicates [...] MD HEMATOLOGY ORDERABLE S Performing Organization Address [facility] Co de Phone Number [facility] [place] [address] * POCT Glucose (11/09/2019 11:27 AM EDT) Glucose, POC 99 65 - 199 mg/dL [facility] Comment: Supplemental ranges: <140 mg/dL before meals <180 mg/dL all other times of the day Blood specimen (specimen) 11/09/2019 11:27 AM EDT 11/09/2019 11:27 AM EDT Casey Singh MD POINT OF CARE TEST O RDERABLES Performing Organization Address City/[facility]/ZIP Co de Phone Number [facility] [place] [address] * POCT Glucose (11/09/2019 7:52 AM EDT) Glucose, POC 119 65 - 199 mg/dL [facility] Comment: Supplemental ranges: <140 mg/dL before meals <180 mg/dL all other times of the day Blood specimen (specimen) 11/09/2019 7:52 AM EDT 11/09/2019 7:52 AM EDT Casey Singh MD POINT OF CARE TEST O LORI Performing Organization Address [facility] Co de Phone Number [facility] [place] [address] * POCT Glucose (11/09/2019 7:24 AM EDT) Glucose, POC 112 65 - 199 mg/dL [facility] Comment: Supplemental ranges: <140 mg/dL before meals <180 mg/dL all other times of the day Blood specimen (specimen) 11/09/2019 7:24 AM EDT 11/09/2019 7:24 AM EDT Casey Singh MD POINT OF CARE TEST O LORI Performing Organization Address [facility] Co de Phone Number [facility] [place] [address] * Differential, Automated (11/09/2019 2:26 AM EDT) Neutrophil % 58.4 % [facility] Neutrophil Absolute 3.44 1.70 - 6.10 x10(3)/[facility] LABORATORY Lymph % 26.7 % [facility] Lymphocytes Abs 1.6 0.9 - 3.2 x10(3)/[facility] LABORATORY Monocyte % 9.5 % [facility] Monocyte Abs 0.6 0.3 - 0.9 x10(3)/[facility] LABORATORY Eos % 3.9 % [facility] Eosinophils Abs 0.2 0.0 - 0.4 x10(3)/[facility] LABORATORY Basophil % 1.2 % [facility] Baso Absolute 0.1 0.0 - 0.1 x10(3)/[facility] LABORATORY Immature Gran % 0.30 % [facility] Comment: Immature granulocytes(IG's)percentage and absolute count will include metamyelocytes, myelocytes, and promyelocytes. Blood smears from CBCs yielding IG's will be scanned manually for concordance. If this scan disagrees with the automated IG or if promyelocytes are noted, a manual differential will be performed. Immature Gran Absolute 0.02 0.00 - 0.04 x10(3)/[facility] LABORATORY Blood specimen (specimen) 11/09/2019 2:26 AM EDT 11/09/2019 2:43 AM EDT Narrative Resulting Agency Comment Spec In Lab Maty Mcfadden APRN HEMATOLOGY ORDERABLE S [facility] [place] [address] * (ABNORMAL) Hemogram (11/09/2019 2:26 AM EDT) White Blood Cell 5.9 4.0 - 9.5 x10(3)/[facility] LABORATORY Red Blood Cell 4.27(L) 4.58 - 5.54 x10(6)/[facility] LABORATORY Hemoglobin 13.0(L) 13.7 - 16.5 gm/dL [facility] Hematocrit 39.8(L) 40.5 - 48.5 % [facility] Mean Cell Volume 93.2(H) 82.9 - 93.1 [facility] LABORATORY Mean Cell Hemoglobin 30.4 27.5 - 32.1 pg [facility] Mean Cell Hemoglobin Concentration 32.7 32.0 - 35.7 gm/dL [facility] Platelet 205 145 - 357 x10(3)/[facility] LABORATORY RDW Standard Deviation 44.1 36.0 - 45.0 [facility] LABORATORY RDW coefficient of variation 12.9 11.4 - 13.8 % [facility] Mean Platelet Volume 10.4 7.6 - 12.9 fL [facility] NRBC% auto 0.0 % [facility] NRBC Absolute 0.000 0.000 - 0.000 x10(3)/mc L [facility] Blood specimen (specimen) 11/09/2019 2:26 AM EDT 11/09/2019 2:43 AM EDT Narrative Resulting Agency Comment Spec In Lab Maty Mcfadden APRN HEMATOLOGY ORDERABLE S [facility] [place] [address] * Basic Metabolic Panel (non-fasting) (11/09/2019 2:26 AM EDT) Glucose 126 65 - 199 mg/dL [facility] Comment:Diabetes: >=200 mg/d L plus symptoms Blood Urea Nitrogen 18 10 - 20 mg/dL [facility] Creatinine 1.02 0.80 - 1.50 mg/dL [facility] Sodium 139 135 - 145 mmol/L [facility] Potassium 3.8 3.5 - 5.0 mmol/L [facility] Comment: Please note: ??Patients with WBC >100,000 may have falsely elevated Potassium levels. ??For accurate Potassium quantification in these patients send serum separator tube (gold top) for subsequent determinations. ??Contact the Clinical Chemistry Laboratory if there are any questions. Chloride 104 98 - 107 mmol/L [facility] Carbon Dioxide 23 22 - 31 mmol/L [facility] Anion Gap 12 5 - 15 mmol/L [facility] Calcium 9.1 8.5 - 10.5 mg/dL [facility] Est Glomerular Filtration Rate 73 >=60 mL/min/1. 73 m?? [facility] Comment: The eGFR was calculated using the CKD-EPI equation. As with all creatinine based estimates of kidney function, eGFR values calculated with the CKD-EPI equation are not accurate in patients with acute kidney failure, extremes of body mass or the acutely ill. [email or web address] eGFR 84 >=60 mL/min/1. 73 m?? [facility] Comment: The eGFR was calculated using the CKD-EPI equation. As with all creatinine based estimates of kidney function, eGFR values calculated with the CKD-EPI equation are not accurate in patients with acute kidney failure, extremes of body mass or the acutely ill. [email or web address] Blood specimen (specimen) 11/09/2019 2:26 AM EDT 11/09/2019 2:43 AM EDT Narrative Resulting Agency Comment Spec In Lab Casey Singh MD CHEMISTRY ORDERABLES Performing Organization Address City/State/[facility] Co de Phone Number [facility] [place] [address] * CT Head wo Contrast (Generic) (11/09/2019 1:08 AM EDT) Anatomical Region Laterality Modality Head Computed Tomogra phy Impressions 11/09/2019 2:50 AM EDT Very slight interval increase in size of the left frontal subdural hemorrhage, now 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 Grossly stable [id number] midline shift. I have personally reviewed the [...] 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 Grossly [id number] midline shift. I have personally reviewed the image(s) and the resident's interpretationand agree with the findings, Myrtle Rowan at 11/09/2019 2:50 AM Thank you for letting us participate in the care of this patient. Forquestions regarding this report, please contact the number below. Maty Mcfadden MULTI DISCIPLINED LANGUAGE ANALYST IMG CT ORDERABLES * POCT Glucose (11/08/2019 8:58 PM EDT) Glucose, POC 104 65 - 199 mg/dL [facility] Comment: Supplemental ranges: <140 mg/dL before meals <180 mg/dL all other times of the day Blood specimen (specimen) 11/08/2019 8:58 PM EDT 11/08/2019 8:58 PM EDT Casey Singh MD POINT OF CARE TEST O RDERABLES Performing Organization Address [facility] Co de Phone Number [facility] [place] [address] * POCT Glucose (11/08/2019 5:37 PM EDT) Glucose, POC 120 65 - 199 mg/dL [facility] Comment: Supplemental ranges: <140 mg/dL before meals <180 mg/dL all other times of the day Blood specimen (specimen) 11/08/2019 5:37 PM EDT 11/08/2019 5:37 PM EDT Casey Singh MD POINT OF CARE TEST O RDERABLES Performing Organization Address City/[facility]/ZIP Co de Phone Number [facility] [place] [address] * POCT Glucose (11/08/2019 11:36 AM EDT) Glucose, POC 150 65 - 199 mg/dL [facility] Comment: Supplemental ranges: <140 mg/dL before meals <180 mg/dL all other times of the day Blood specimen (specimen) 11/08/2019 11:36 AM EDT 11/08/2019 11:36 AM EDT Casey Singh MD POINT OF CARE TEST O RDERABLES [facility] [place] [address] * POCT Glucose (11/08/2019 8:05 AM EDT) Glucose, POC 118 65 - 199 mg/dL [facility] Comment: Supplemental ranges: <140 mg/dL before meals <180 mg/dL all other times of the day Blood specimen (specimen) 11/08/2019 8:05 AM EDT 11/08/2019 8:05 AM EDT Casey Singh MD POINT OF CARE TEST O RDERABLES Performing Organization Address [facility]/ZIP Co de Phone Number [facility] [place] [address] * Differential, Automated (11/08/2019 2:24 AM EDT) [facility] Neutrophil % 49.8 % [facility] Neutrophil Absolute 3.22 1.70 - 6.10 x10(3)/[facility] LABORATORY Lymph % 33.0 % [facility] Lymphocytes Abs 2.1 0.9 - 3.2 x10(3)/[facility] LABORATORY Monocyte % 10.1 % [facility] Monocyte Abs 0.6 0.3 - 0.9 x10(3)/[facility] LABORATORY Eos % 5.7 % [facility] Eosinophils Abs 0.4 0.0 - 0.4 x10(3)/[facility] LABORATORY Basophil % 1.2 % [facility] Baso Absolute 0.1 0.0 - 0.1 x10(3)/[facility] LABORATORY Immature Gran % 0.20 % [facility] Comment: Immature granulocytes(IG's)percentage and absolute count will include metamyelocytes, myelocytes, and promyelocytes. Blood smears from CBCs yielding IG's will be scanned manually for concordance. If this scan disagrees with the automated IG or if promyelocytes are noted, a manual differential will be performed. Immature Gran Absolute 0.01 0.00 - 0.04 x10(3)/[facility] LABORATORY Blood specimen (specimen) 11/08/2019 2:24 AM EDT 11/08/2019 2:43 AM EDT Narrative Resulting Agency Comment Spec In Lab Maty Mcfadden APRN HEMATOLOGY ORDERABLE S [facility] [place] [address] * (ABNORMAL) Hemogram (11/08/2019 2:24 AM EDT) White Blood Cell 6.5 4.0 - 9.5 x10(3)/[facility] LABORATORY Red Blood Cell 4.22(L) 4.58 - 5.54 x10(6)/[facility] LABORATORY Hemoglobin 13.0(L) 13.7 - 16.5 gm/dL [facility] Hematocrit 38.7(L) 40.5 - 48.5 % [facility] Mean Cell Volume 91.7 82.9 - 93.1 [facility] LABORATORY Mean Cell Hemoglobin 30.8 27.5 - 32.1 pg [facility] Mean Cell Hemoglobin Concentration 33.6 32.0 - 35.7 gm/dL [facility] Platelet 188 145 - 357 x10(3)/[facility] LABORATORY RDW Standard Deviation 43.0 36.0 - 45.0 [facility] LABORATORY RDW coefficient of variation 12.9 11.4 - 13.8 % [facility] Mean Platelet Volume 10.4 7.6 - 12.9 [facility] [facility] LABORATORY NRBC% auto 0.0 % [facility] LABORATORY NRBC Absolute 0.000 0.000 - 0.000 x10(3)/[facility] LABORATORY Blood specimen (specimen) 11/08/2019 2:24 AM EDT 11/08/2019 2:43 AM EDT Narrative Resulting Agency Comment Spec In Lab Maty Mcfadden CHRIS HEMATOLOGY ORDERABLE S [facility] [place] [address] * Basic Metabolic Panel (non-fasting) (11/08/2019 2:24 AM EDT) Glucose 130 65 - 199 mg/dL [facility] Comment:Diabetes: >=200 mg/d L plus symptoms Blood Urea Nitrogen 16 10 - 20 mg/dL [facility] Creatinine 0.92 0.80 - 1.50 mg/dL [facility] Sodium 140 135 - 145 mmol/L [facility] Potassium 4.0 3.5 - 5.0 mmol/L [facility] Comment: Please note: ??Patients with WBC >100,000 may have falsely elevated Potassium levels. ??For accurate Potassium quantification in these patients send serum separator tube (gold top) for subsequent determinations. ??Contact the Clinical Chemistry Laboratory if there are any questions. Chloride 102 98 - 107 mmol/L [facility]OR[facility]ORY Carbon Dioxide 26 22 - 31 mmol/L [facility] Anion Gap 12 5 - 15 mmol/L [facility] Calcium 9.2 8.5 - 10.5 mg/dL [facility] Est Glomerular Filtration Rate 82 >=60 mL/min/1. 73 m?? [facility]ORY Comment: The eGFR was calculated using the CKD-EPI equation. As with all creatinine based estimates of kidney function, eGFR values calculated with the CKD-EPI equation are not accurate in patients with acute kidney failure, extremes of body mass or the acutely ill. [email or web address] eGFR 95 >=60 mL/min/1. 73 m?? [facility] LABORATORY Comment: The eGFR was calculated using the CKD-EPI equation. As with all creatinine based estimates of kidney function, eGFR values calculated with the CKD-EPI equation are not accurate in patients with acute kidney failure, extremes of body mass or the acutely ill. [email or web address] Blood specimen (specimen) 11/08/2019 2:24 AM EDT 11/08/2019 2:43 AM EDT Narrative Resulting Agency Comment Spec In Lab Casey Singh MD CHEMISTRY ORDERABLES Performing Organization Address City/[facility]/ZIP Co de Phone Number [facility] [place] [address] * POCT Glucose (11/07/2019 8:55 PM EDT) Glucose, POC 130 65 - 199 mg/dL [facility] Comment: Supplemental ranges: <140 mg/dL before meals <180 mg/dL all other times of the day Blood specimen (specimen) 11/07/2019 8:55 PM EDT 11/07/2019 8:55 PM EDT Casey Singh MD POINT OF CARE TEST O RDERAPAMELA Performing Organization Address [facility] Co de Phone Number [facility] [place] [address] * POCT Glucose (11/07/2019 5:11 PM EDT) Glucose, POC 119 65 - 199 mg/dL [facility] Comment: Supplemental ranges: <140 mg/dL before meals <180 mg/dL all other times of the day Blood specimen (specimen) 11/07/2019 5:11 PM EDT 11/07/2019 5:11 PM EDT Casey Singh MD POINT OF CARE TEST O LORI Performing Organization Address [facility]/ZIP Co de Phone Number [facility] [place] [address] * POCT Glucose (11/07/2019 11:53 AM EDT) Glucose, POC 106 65 - 199 mg/dL [facility] Comment: Supplemental ranges: <140 mg/dL before meals <180 mg/dL all other times of the day Blood specimen (specimen) 11/07/2019 11:53 AM EDT 11/07/2019 11:53 AM EDT Casey Singh MD POINT OF CARE TEST O LORI Performing Organization Address [facility] Co de Phone Number [facility] [place] [address] * POCT Glucose (11/07/2019 7:45 AM EDT) Glucose, POC 117 65 - 199 mg/dL [facility] Comment: Supplemental ranges: <140 mg/dL before meals <180 mg/dL all other times of the day Blood specimen (specimen) 11/07/2019 7:45 AM EDT 11/07/2019 7:45 AM EDT Casey Singh MD POINT OF CARE TEST O LORI Performing Organization Address [facility] de Phone Number [facility] [place] [address] * Differential, Automated (11/07/2019 1:13 AM EDT) Neutrophil % 53.9 % [facility] LABORATORY Neutrophil Absolute 3.54 1.70 - 6.10 x10(3)/[facility] LABORATORY Lymph % 29.2 % [facility] LABORATORY Lymphocytes Abs 1.9 0.9 - 3.2 x10(3)/[facility] LABORATORY Monocyte % 9.9 % [facility] LABORATORY Monocyte Abs 0.6 0.3 - 0.9 x10(3)/[facility] LABORATORY Eos % 5.3 % [facility] LABORATORY Eosinophils Abs 0.4 0.0 - 0.4 x10(3)/[facility] LABORATORY Basophil % 1.4 % [facility] LABORATORY Baso Absolute 0.1 0.0 - 0.1 x10(3)/[facility] LABORATORY Immature Gran % 0.30 % [facility]ORAT[facility] Comment: Immature granulocytes(IG's)percentage and absolute count will include metamyelocytes, myelocytes, and promyelocytes. Blood smears from CBCs yielding IG's will be scanned manually for concordance. If this scan disagrees with the automated IG or if promyelocytes are noted, a manual differential will be performed. Immature Gran Absolute 0.02 0.00 - 0.04 x10(3)/[facility] LABORATORY Blood specimen (specimen) 11/07/2019 1:13 AM EDT 11/07/2019 1:29 AM EDT Narrative Resulting Agency Comment Spec In Lab Maty Mcfadden APRN HEMATOLOGY ORDERABLE S Performing Organization Address City/State/[facility] Co de Phone Number [facility] [place] [address] * (ABNORMAL) Hemogram (11/07/2019 1:13 AM EDT) White Blood Cell 6.6 4.0 - 9.5 x10(3)/ L [facility] LABORATORY Red Blood Cell 4.44(L) 4.58 - 5.54 x10(6)/ L [facility]OR[facility] Hemoglobin 13.5(L) 13.7 - 16.5 gm/dL [facility] Hematocrit 40.5 40.5 - 48.5 % [facility] Mean Cell Volume 91.2 82.9 - 93.1 fL [facility] Mean Cell Hemoglobin 30.4 27.5 - 32.1 pg [facility] Mean Cell Hemoglobin Concentration 33.3 32.0 - 35.7 gm/dL [facility] Platelet 187 145 - 357 x10(3)/mc L [facility] LABORATORY RDW Standard Deviation 42.5 36.0 - 45.0 [facility] LABORATORY RDW coefficient of variation 12.9 11.4 - 13.8 % [facility]ORAT[facility] Mean Platelet Volume 10.5 7.6 - 12.9 fL [facility]ORATORY NRBC% auto 0.0 % [facility] NRBC Absolute 0.000 0.000 - 0.000 x10(3)/mc L [facility] LABORATORY Blood specimen (specimen) 11/07/2019 1:13 AM EDT 11/07/2019 1:29 AM EDT Narrative Resulting Agency Comment Spec In Lab Maty Mcfadden APRN HEMATOLOGY ORDERABLE S [facility] [place] [address] * Basic Metabolic Panel (non-fasting) (11/07/2019 1:13 AM EDT) Glucose 132 65 - 199 mg/dL [facility] LAB[facility] Comment:Diabetes: >=200 mg/d L plus symptoms Blood Urea Nitrogen 16 10 - 20 mg/dL [facility] Creatinine 0.96 0.80 - 1.50 mg/dL [facility] Sodium 139 135 - 145 mmol/L [facility] Potassium 4.1 3.5 - 5.0 mmol/L [facility] Comment: Please note: ??Patients with WBC >100,000 may have falsely elevated Potassium levels. ??For accurate Potassium quantification in these patients send serum separator tube (gold top) for subsequent determinations. ??Contact the Clinical Chemistry Laboratory if there are any questions. Chloride 106 98 - 107 mmol/L [facility] Carbon Dioxide 23 22 - 31 mmol/L [facility] Anion Gap 10 5 - 15 mmol/L [facility] Calcium 8.9 8.5 - 10.5 mg/dL [facility] Est Glomerular Filtration Rate 78 >=60 mL/min/1. 73 m?? [facility] Comment: The eGFR was calculated using the CKD-EPI equation. As with all creatinine based estimates of kidney function, eGFR values calculated with the CKD-EPI equation are not accurate in patients with acute kidney failure, extremes of body mass or the acutely ill. [email or web address] eGFR 91 >=60 mL/min/1. 73 m?? [facility] LABORAT[facility] Comment: The eGFR was calculated using the CKD-EPI equation. As with all creatinine based estimates of kidney function, eGFR values calculated with the CKD-EPI equation are not accurate in patients with acute kidney failure, extremes of body mass or the acutely ill. [email or web address] Blood specimen (specimen) 11/07/2019 1:13 AM EDT 11/07/2019 1:29 AM EDT Narrative Resulting Agency Comment Spec In Lab Casey Singh MD CHEMISTRY ORDERABLES Performing Organization Address [facility] Co de Phone Number [facility] [place] [address] * POCT Glucose (11/06/2019 8:14 PM EDT) Glucose, POC 132 65 - 199 mg/dL [facility] Comment: Supplemental ranges: <140 mg/dL before meals <180 mg/dL all other times of the day Blood specimen (specimen) 11/06/2019 8:14 PM EDT 11/06/2019 8:14 PM EDT Casey Singh MD POINT OF CARE TEST O RDERABLES [facility] [place] [address] * POCT Glucose (11/06/2019 12:09 PM EDT) Glucose, POC 98 65 - 199 mg/dL [facility] Comment: Supplemental ranges: <140 mg/dL before meals <180 mg/dL all other times of the day Blood specimen (specimen) 11/06/2019 12:09 PM EDT 11/06/2019 12:09 PM EDT Casey Singh MD POINT OF CARE TEST O RDERABLES [facility] [place] [address] * POCT Glucose (11/06/2019 7:56 AM EDT) Glucose, POC 115 65 - 199 mg/dL [facility] Comment: Supplemental ranges: <140 mg/dL before meals <180 mg/dL all other times of the day Blood specimen (specimen) 11/06/2019 7:56 AM EDT 11/06/2019 7:56 AM EDT Casey Singh MD POINT OF CARE TEST O RDERABLES Performing Organization Address City/[facility]/ZIP Co de Phone Number [facility] [place] [address] * Differential, Automated (11/06/2019 1:25 AM EDT) Pathologist [facility] Neutrophil % 57.2 % [facility] LABORATORY Neutrophil Absolute 4.23 1.70 - 6.10 x10(3)/[facility] LABORATORY Lymph % 26.9 % [facility] LABORATORY Lymphocytes Abs 2.0 0.9 - 3.2 x10(3)/[facility] LABORATORY Monocyte % 10.1 % [facility] LABORATORY Monocyte Abs 0.8 0.3 - 0.9 x10(3)/[facility] LABORATORY Eos % 4.7 % [facility] LABORATORY Eosinophils Abs 0.4 0.0 - 0.4 x10(3)/[facility] LABORATORY Basophil % 0.8 % [facility] Baso Absolute 0.1 0.0 - 0.1 x10(3)/[facility] LABORATORY Immature Gran % 0.30 % [facility]AT[facility] Comment: Immature granulocytes(IG's)percentage and absolute count will include metamyelocytes, myelocytes, and promyelocytes. Blood smears from CBCs yielding IG's will be scanned manually for concordance. If this scan disagrees with the automated IG or if promyelocytes are noted, a manual differential will be performed. Immature Gran Absolute 0.02 0.00 - 0.04 x10(3)/mcL [facility] LABORATORY Blood specimen (specimen) 11/06/2019 1:25 AM EDT 11/06/2019 1:41 AM EDT Narrative Resulting Agency Comment Spec In Lab Maty Mcfadden MULTI DISCIPLINED LANGUAGE ANALYST HEMATOLOGY ORDERABLE S [facility] [place] [address] * (ABNORMAL) Hemogram (11/06/2019 1:25 AM EDT) White Blood Cell 7.4 4.0 - 9.5 x10(3)/mc L [facility] LABORAT[facility] Red Blood Cell 4.27(L) 4.58 - 5.54 x10(6)/mc L [facility] Hemoglobin 13.1(L) 13.7 - 16.5 gm/dL [facility] Hematocrit 39.5(L) 40.5 - 48.5 % [facility] Mean Cell Volume 92.5 82.9 - 93.1 fL [facility] Mean Cell Hemoglobin 30.7 27.5 - 32.1 pg [facility] Mean Cell Hemoglobin Concentration 33.2 32.0 - 35.7 gm/dL [facility] Platelet 179 145 - 357 x10(3)/mc L [facility] RDW Standard Deviation 42.6 36.0 - 45.0 [facility] LABORATORY RDW coefficient of variation 12.5 11.4 - 13.8 % [facility] Mean Platelet Volume 10.5 7.6 - 12.9 fL [facility] NRBC% auto 0.0 % [facility] NRBC Absolute 0.000 0.000 - 0.000 x10(3)/mc L [facility] Blood specimen (specimen) 11/06/2019 1:25 AM EDT 11/06/2019 1:41 AM EDT Narrative Resulting Agency Comment Spec In Lab Maty Mcfadden CHRIS HEMATOLOGY ORDERABLE S [facility] [place] [address] * (ABNORMAL) Basic Metabolic Panel (non-fasting) (11/06/2019 1:25 AM EDT) Glucose 87 65 - 199 mg/dL [facility] Comment:Diabetes: >=200 mg/d L plus symptoms Blood Urea Nitrogen 12 10 - 20 mg/dL [facility] Creatinine 0.96 0.80 - 1.50 mg/dL [facility] Sodium 140 135 - 145 mmol/L [facility] Potassium 4.0 3.5 - 5.0 mmol/L [facility] Comment: Please note: ??Patients with WBC >100,000 may have falsely elevated Potassium levels. ??For accurate Potassium quantification in these patients send serum separator tube (gold top) for subsequent determinations. ??Contact the Clinical Chemistry Laboratory if there are any questions. Chloride 109(H) 98 - 107 mmol/L [facility] Carbon Dioxide 21(L) 22 - 31 mmol/L [facility] Anion Gap 10 5 - 15 mmol/L [facility] Calcium 8.8 8.5 - 10.5 mg/dL [facility] Est Glomerular Filtration Rate 78 >=60 mL/min/1. 73 m?? [facility] Comment: The eGFR was calculated using the CKD-EPI equation. As with all creatinine based estimates of kidney function, eGFR values calculated with the CKD-EPI equation are not accurate in patients with acute kidney failure, extremes of body mass or the acutely ill. [email or web address] eGFR 91 >=60 mL/min/1. 73 m?? [facility] Comment: The eGFR was calculated using the CKD-EPI equation. As with all creatinine based estimates of kidney function, eGFR values calculated with the CKD-EPI equation are not accurate in patients with acute kidney failure, extremes of body mass or the acutely ill. [email or web address] Blood specimen (specimen) 11/06/2019 1:25 AM EDT 11/06/2019 1:41 AM EDT Narrative Resulting Agency Comment Spec In Lab Casey Singh MD CHEMISTRY ORDERABLES Performing Organization Address City/[facility]/ZIP Co de Phone Number [facility] [place] [address] * POCT Glucose (11/05/2019 8:28 PM EDT) Glucose, POC 114 65 - 199 mg/dL [facility] Comment: Supplemental ranges: <140 mg/dL before meals <180 mg/dL all other times of the day Blood specimen (specimen) 11/05/2019 8:28 PM EDT 11/05/2019 8:28 PM EDT Casey Singh MD POINT OF CARE TEST O RDERABLES Performing Organization Address [facility] Co de Phone Number [facility] [place] [address] * POCT Glucose (11/05/2019 6:58 PM EDT) Glucose, POC 78 65 - 199 mg/dL [facility] Comment: Supplemental ranges: <140 mg/dL before meals <180 mg/dL all other times of the day Blood specimen (specimen) 11/05/2019 6:58 PM EDT 11/05/2019 6:58 PM EDT Casey Singh MD POINT OF CARE TEST O LORI Performing Organization Address City/[facility]/ZIP Co de Phone Number [facility] [place] [address] * (ABNORMAL) POCT Glucose (11/05/2019 6:18 PM EDT) Glucose, POC 60(L) 65 - 199 mg/dL [facility] Comment: Supplemental ranges: <140 mg/dL before meals <180 mg/dL all other times of the day Blood specimen (specimen) 11/05/2019 6:18 PM EDT 11/05/2019 6:18 PM EDT Casey Singh MD POINT OF CARE TEST O RDERAPAMELA [facility] [place] [address] * POCT Glucose (11/05/2019 12:02 PM EDT) Glucose, POC 73 65 - 199 mg/dL [facility] Comment: Supplemental ranges: <140 mg/dL before meals <180 mg/dL all other times of the day Blood specimen (specimen) 11/05/2019 12:02 PM EDT 11/05/2019 12:02 PM EDT Casey Singh MD POINT OF CARE TEST O LORI Performing Organization Address [facility]/ZIP Co de Phone Number [facility] [place] [address] * POCT Glucose (11/05/2019 8:11 AM EDT) Glucose, POC 70 65 - 199 mg/dL [facility] Comment: Supplemental ranges: <140 mg/dL before meals <180 mg/dL all other times of the day Blood specimen (specimen) 11/05/2019 8:11 AM EDT 11/05/2019 8:11 AM EDT Casey Singh MD POINT OF CARE TEST O RDERAPAMELA [facility] [place] [address] * CT Head wo Contrast (Generic) (11/05/2019 [...] with grossly stable 7 to 8 mm [id number] midline shift. The suprasellar and basal cisterns [...] with grossly stable 7 to 8 mm [id number] midline shift. The suprasellar and basal cisterns [...] 1:16 AM EDT) Neutrophil % 61.3 % [facility] Neutrophil Absolute 4.79 1.70 - 6.10 x10(3)/[facility] LABORATORY Lymph % 25.4 % [facility] Lymphocytes Abs 2.0 0.9 - 3.2 x10(3)/[facility] LABORATORY Monocyte % 8.3 % [facility] Monocyte Abs 0.6 0.3 - 0.9 x10(3)/[facility] LABORATORY Eos % 4.1 % [facility] Eosinophils Abs 0.3 0.0 - 0.4 x10(3)/[facility] LABORATORY Basophil % 0.8 % [facility] Baso Absolute 0.1 0.0 - 0.1 x10(3)/[facility] LABORATORY Immature Gran % 0.10 % [facility] Comment: Immature granulocytes(IG's)percentage and absolute count will include metamyelocytes, myelocytes, and promyelocytes. Blood smears from CBCs yielding IG's will be scanned manually for concordance. If this scan disagrees with the automated IG or if promyelocytes are noted, a manual differential will be performed. Immature Gran Absolute 0.01 0.00 - 0.04 x10(3)/mcL [facility] Blood specimen (specimen) 11/05/2019 1:16 AM EDT 11/05/2019 1:35 AM EDT Narrative Resulting Agency Comment Spec In Lab Maty Mcfadden MULTI DISCIPLINED LANGUAGE ANALYST HEMATOLOGY ORDERABLE S [facility] [place] [address] * (ABNORMAL) Hemogram (11/05/2019 1:16 AM EDT) White Blood Cell 7.8 4.0 - 9.5 x10(3)/mc L [facility] Red Blood Cell 4.32(L) 4.58 - 5.54 x10(6)/mc L [facility] Hemoglobin 13.0(L) 13.7 - 16.5 gm/dL [facility] Hematocrit 40.1(L) 40.5 - 48.5 % [facility] Mean Cell Volume 92.8 82.9 - 93.1 fL [facility] Mean Cell Hemoglobin 30.1 27.5 - 32.1 pg [facility] Mean Cell Hemoglobin Concentration 32.4 32.0 - 35.7 gm/dL [facility] Platelet 175 145 - 357 x10(3)/mc L [facility] RDW Standard Deviation 43.9 36.0 - 45.0 [facility] LABORATORY RDW coefficient of variation 12.8 11.4 - 13.8 % [facility] Mean Platelet Volume 10.2 7.6 - 12.9 fL [facility] NRBC% auto 0.0 % [facility] NRBC Absolute 0.000 0.000 - 0.000 x10(3)/mc L [facility] Blood specimen (specimen) 11/05/2019 1:16 AM EDT 11/05/2019 1:35 AM EDT Narrative Resulting Agency Comment Spec In Lab Maty Mcfadden MULTI DISCIPLINED LANGUAGE ANALYST HEMATOLOGY ORDERABLE S [facility] [place] [address] * Basic Metabolic Panel (non-fasting) (11/05/2019 1:16 AM EDT) Glucose 77 65 - 199 mg/dL [facility] Comment:Diabetes: >=200 mg/d L plus symptoms Blood Urea Nitrogen 11 10 - 20 mg/dL [facility] Creatinine 0.91 0.80 - 1.50 mg/dL [facility] Sodium 139 135 - 145 mmol/L [facility] Potassium 4.2 3.5 - 5.0 mmol/L [facility] Comment: Please note: ??Patients with WBC >100,000 may have falsely elevated Potassium levels. ??For accurate Potassium quantification in these patients send serum separator tube (gold top) for subsequent determinations. ??Contact the Clinical Chemistry Laboratory if there are any questions. Chloride 107 98 - 107 mmol/L [facility] Carbon Dioxide 22 22 - 31 mmol/L [facility] Anion Gap 10 5 - 15 mmol/L [facility] Calcium 8.8 8.5 - 10.5 mg/dL [facility] Est Glomerular Filtration Rate 83 >=60 mL/min/1. 73 m?? [facility] Comment: The eGFR was calculated using the CKD-EPI equation. As with all creatinine based estimates of kidney function, eGFR values calculated with the CKD-EPI equation are not accurate in patients with acute kidney failure, extremes of body mass or the acutely ill. [email or web address] eGFR 97 >=60 mL/min/1. 73 m?? [facility] Comment: The eGFR was calculated using the CKD-EPI equation. As with all creatinine based estimates of kidney function, eGFR values calculated with the CKD-EPI equation are not accurate in patients with acute kidney failure, extremes of body mass or the acutely ill. [email or web address] Blood specimen (specimen) 11/05/2019 1:16 AM EDT 11/05/2019 1:35 AM EDT Narrative Resulting Agency Comment Spec In Lab Casey Singh MD CHEMISTRY ORDERABLES Performing Organization Address [facility] de Phone Number [facility] [place] [address] * POCT Glucose (11/04/2019 9:00 PM EDT) [facility] Glucose, POC [phone] 199 mg/dL [facility] Comment: Supplemental ranges: <140 mg/dL before meals <180 mg/dL all other times of the day Blood specimen (specimen) 11/04/2019 9:00 PM EDT 11/04/2019 9:00 PM EDT Casey Singh MD POINT OF CARE TEST O RDERABLES Performing Organization Address [facility] [facility] de Phone Number [facility] [place] [address] * Troponin (11/04/2019 7:19 PM EDT) [facility] Troponin-T <0.01 0.00 - 0.00 ng/mL [facility] Comment: The 99th percentile for Troponin T is less than 0.01 ng/mL, any detectable cTnT concentration using this assay should be considered elevated. According to the third universal definition of myocardial infarction the following criteria with a clinical presentation consistent with acute myocardial ischemia meets the diagnosis for a myocardial infarction (CA). Detection of a rise and/or fall of cTnT, with at least one value greater than the 99th percentile (> or = 0.01) and with at least one of the following ?? Symptoms of ischemia ?? New or presumed new significant XO-gnijqth-V wave (ST-T) changes or new left bundle [...] additional sample may be indicated. Reference: Third [place] Definition of Myocardial Infarction. Journal of the [place] [employer] 2012;60:1581-98 Blood specimen (specimen) 11/04/2019 7:19 PM EDT 11/04/2019 7:33 PM EDT Narrative Resulting Agency Comment Spec In Lab Casey Singh MD CHEMISTRY ORDERABLES Performing Organization Address [facility]/ZIP Co de Phone Number [facility] [place] [address] * EKG 12 Lead (11/04/2019 7:16 PM EDT) Pathologist [facility] Ventricular rate 60 BPM MUSE SYSTEM Atrial Rate 60 BPM MUSE SYSTEM P-R Interval 166 ms MUSE SYSTEM QRS Duration 80 ms MUSE SYSTEM Q-T Interval 390 ms MUSE SYSTEM QTC Calculated (Bezet) 390 ms MUSE SYSTEM Calculated P [place] 47 degrees MUSE SYSTEM Calculated R [place] -6 degrees MUSE SYSTEM Calculated T [place] 20 degrees MUSE SYSTEM INTERPRETATION Normal sinus rhythm Normal ECG No previous ECGs available Confirmed by Dedrick Gaspar MD ([id number]) on 11/06/2019 1:56:59 PM MUSE SYSTEM 11/04/2019 7:16 PM EDT 11/06/2019 1:56 PM EDT Casey Singh MD ECG ORDERABLES Performing Organization Address [facility]/ZIP Co de Phone Number MUSE SYSTEM * POCT Glucose (11/04/2019 6:22 PM EDT) [facility] Glucose, POC 88 65 - 199 mg/dL [facility] Comment: Supplemental ranges: <140 mg/dL before meals <180 mg/dL all other times of the day Blood specimen (specimen) 11/04/2019 6:22 PM EDT 11/04/2019 6:22 PM EDT Casey Singh MD POINT OF CARE TEST O LORI Performing Organization Address [facility] Co de Phone Number [facility] [place] [address] * POCT Glucose (11/04/2019 4:30 PM EDT) Glucose, POC 80 65 - 199 mg/dL [facility] Comment: Supplemental ranges: <140 mg/dL before meals <180 mg/dL all other times of the day Blood specimen (specimen) 11/04/2019 4:30 PM EDT 11/04/2019 4:30 PM EDT Casey Singh MD POINT OF CARE TEST O LORI Performing Organization Address [facility] Co de Phone Number [facility] [place] [address] * POCT Glucose (11/04/2019 12:15 PM EDT) Glucose, POC 72 65 - 199 mg/dL [facility] Comment: Supplemental ranges: <140 mg/dL before meals <180 mg/dL all other times of the day Blood specimen (specimen) 11/04/2019 12:15 PM EDT 11/04/2019 12:15 PM EDT Casey Singh MD POINT OF CARE TEST O LORI Performing Organization Address [facility] Co de Phone Number [facility] [place] [address] * POCT Glucose (11/04/2019 7:42 AM EDT) Glucose, POC 77 65 - 199 mg/dL [facility] Comment: Supplemental ranges: <140 mg/dL before meals <180 mg/dL all other times of the day Blood specimen (specimen) 11/04/2019 7:42 AM EDT 11/04/2019 7:42 AM EDT Casey Singh MD POINT OF CARE TEST O RDERABLES [facility] [place] [address] * CT Head wo Contrast (Generic) (11/04/2019 [...] 3:48 AM EDT) Neutrophil % 68.3 % [facility] Neutrophil Absolute 5.46 1.70 - 6.10 x10(3)/[facility] Lymph % 20.3 % [facility] Lymphocytes Abs 1.6 0.9 - 3.2 x10(3)/[facility] LAB[facility] Monocyte % 9.5 % [facility] Monocyte Abs 0.8 0.3 - 0.9 x10(3)/[facility] LAB[facility] Eos % 0.9 % [facility] Eosinophils Abs 0.1 0.0 - 0.4 x10(3)/[facility] LAB[facility] Basophil % 0.6 % [facility] Baso Absolute 0.0 0.0 - 0.1 x10(3)/[facility] LABOR[facility]ORY Immature Gran % 0.40 % [facility] Comment: Immature granulocytes(IG's)percentage and absolute count will include metamyelocytes, myelocytes, and promyelocytes. Blood smears from CBCs yielding IG's will be scanned manually for concordance. If this scan disagrees with the automated IG or if promyelocytes are noted, a manual differential will be performed. Immature Gran Absolute 0.03 0.00 - 0.04 x10(3)/[facility] Blood specimen (specimen) 11/04/2019 3:48 AM EDT 11/04/2019 4:15 AM EDT Narrative Resulting Agency Comment Spec In Lab Maty Mcfadden APRN HEMATOLOGY ORDERABLE S [facility] [place] [address] * (ABNORMAL) Hemogram (11/04/2019 3:48 AM EDT) White Blood Cell 8.0 4.0 - 9.5 x10(3)/mc L [facility] Red Blood Cell 4.39(L) 4.58 - 5.54 x10(6)/mc L [facility] Hemoglobin 13.4(L) 13.7 - 16.5 gm/dL [facility] Hematocrit 40.7 40.5 - 48.5 % [facility] Mean Cell Volume 92.7 82.9 - 93.1 fL [facility] Mean Cell Hemoglobin 30.5 27.5 - 32.1 pg [facility] Mean Cell Hemoglobin Concentration 32.9 32.0 - 35.7 gm/dL [facility] Platelet 171 145 - 357 x10(3)/mc L [facility] RDW Standard Deviation 43.4 36.0 - 45.0 fL [facility] RDW coefficient of variation 12.7 11.4 - 13.8 % [facility] Mean Platelet Volume 10.6 7.6 - 12.9 fL [facility] NRBC% auto 0.0 % [facility] NRBC Absolute 0.000 0.000 - 0.000 x10(3)/mc L [facility] Blood specimen (specimen) 11/04/2019 3:48 AM EDT 11/04/2019 4:15 AM EDT Narrative Resulting Agency Comment Spec In Lab Maty Mcfadden MULTI DISCIPLINED LANGUAGE ANALYST HEMATOLOGY ORDERABLE S [facility] [place] [address] * Basic Metabolic Panel (non-fasting) (11/04/2019 3:48 AM EDT) Glucose 97 65 - 199 mg/dL [facility] Comment:Diabetes: >=200 mg/d L plus symptoms Blood Urea Nitrogen 10 10 - 20 mg/dL [facility] Creatinine 0.91 0.80 - 1.50 mg/dL [facility] Sodium 141 135 - 145 mmol/L [facility] Potassium 4.3 3.5 - 5.0 mmol/L [facility] Comment: Please note: ??Patients with WBC >100,000 may have falsely elevated Potassium levels. ??For accurate Potassium quantification in these patients send serum separator tube (gold top) for subsequent determinations. ??Contact the Clinical Chemistry Laboratory if there are any questions. Chloride 107 98 - 107 mmol/L [facility] Carbon Dioxide 23 22 - 31 mmol/L [facility] Anion Gap 11 5 - 15 mmol/L [facility] Calcium 8.9 8.5 - 10.5 mg/dL [facility] Est Glomerular Filtration Rate 83 >=60 mL/min/1. 73 m?? [facility] Comment: The eGFR was calculated using the CKD-EPI equation. As with all creatinine based estimates of kidney function, eGFR values calculated with the CKD-EPI equation are not accurate in patients with acute kidney failure, extremes of body mass or the acutely ill. [email or web address] eGFR 97 >=60 mL/min/1. 73 m?? [facility] Comment: The eGFR was calculated using the CKD-EPI equation. As with all creatinine based estimates of kidney function, eGFR values calculated with the CKD-EPI equation are not accurate in patients with acute kidney failure, extremes of body mass or the acutely ill. [email or web address] Blood specimen (specimen) 11/04/2019 3:48 AM EDT 11/04/2019 4:15 AM EDT Narrative Resulting Agency Comment Spec In Lab Casey Singh MD CHEMISTRY ORDERABLES Performing Organization Address [facility] Co de Phone Number [facility] [place] [phone] * POCT Glucose (11/03/2019 11:53 PM EDT) Glucose, POC 77 65 - 199 mg/dL [facility] Comment: Supplemental ranges: <140 mg/dL before meals <180 mg/dL all other times of the day Blood specimen (specimen) 11/03/2019 11:53 PM EDT 11/03/2019 11:53 PM EDT Casey Singh MD POINT OF CARE TEST O RDERAPAMELA Performing Organization Address [facility] Co de Phone Number [facility] [place] [address] * POCT Glucose (11/03/2019 6:34 PM EDT) Glucose, POC 93 65 - 199 mg/dL [facility] Comment: Supplemental ranges: <140 mg/dL before meals <180 mg/dL all other times of the day Blood specimen (specimen) 11/03/2019 6:34 PM EDT 11/03/2019 6:34 PM EDT Casey Singh MD POINT OF CARE TEST O RDERABLES [facility] [place] [address] * IR EMBOLIZATION MIDDLE MENINGEAL ARTERY UNILATERAL [...] please contact the number below. ? Narrative 11/10/2019 10:28 AM EDT EXAMINATION: IR [...] Advantage 5 Fr STEVO selective catheter, [place] SL-10 microcatheter, Synchro2 microwire, 250 micron Embozene- 1 vial, 6 Guinean Angio-Seal. DESCRIPTION: The procedure, its risks and [...] The guide catheter was removed The 5 Guinean Kalyan catheter was then placed in the [...] NBAdvantage 5 Fr STEVO selective catheter, [place] SL-10 microcatheter, [id number], 250 micron Embozene- 1 vial, 6 [place] Angio-Seal. DESCRIPTION: The procedure, its risks and [...] The guide catheter was removed The 5 Gu[place] Kalyan catheter was then placed in the [...] the number below. Casey Singh MD IMG IR ORDERABLES * (ABNORMAL) BLOOD GAS 2 ARTERIAL (11/03/2019 3:04 PM EDT) pH, Arterial 7.41 7.35 - 7.45 [facility] PCO2, Arterial 34(L) 35 - 45 mmHg [facility] PO2, Arterial 218(H) 85 - 104 mmHg [facility] Bicarbonate, Arterial 21.7 20.0 - 26.0 mmol/L [facility] Base Excess, Arterial -3.1(L) -3.0 - 3.0 mmol/L [facility] Hgb Blood Gas 14.1 13.7 - 16.5 gm/dL [facility] Oxyhemoglobin, Arterial 98.3(H) 94.0 - 97.0 % [facility] Carboxyhemoglob in, Arterial 1.0 % [facility] Comment: Nonsmokers: 0.5-1.5% COHB Smokers: Variable, but usually less than 10% Toxic: 20-30% COHB Lethal: Greater than 60% COHB Methemoglobin, Arterial 0.3 <=1.5 % [facility] Na Whole Blood 138 135 - 145 mmol/L [facility] K Whole Blood 3.8 3.5 - 5.0 mmol/L [facility] Comment: Please note: Patients with WBC >100,000 may have falsely elevated Potassium levels. Contact the Clinical Chemistry Laboratory if there are any questions. ICa Whole Blood 1.17 1.15 - 1.33 mmol/L [facility] Comment: Note: ??Total bilirubin higher than 20 mg/dL may lead to falsely low ionized calcium. CL Whole Blood 110(H) 98 - 107 mmol/L [facility] Gluc Whole Bld 84 65 - 199 mg/dL [facility] Comment:Diabetes: >=200 mg/d L plus symptoms. Lactate WB 1.3 0.5 - 2.2 mmol/L [facility] Temp Art 36.1 Celsius [facility] Blood specimen (specimen) 11/03/2019 3:04 PM EDT 11/03/2019 3:04 PM EDT Casey Singh MD POINT OF CARE TEST O LORI Performing Organization Address [facility] Co de Phone Number [facility] [place] [address] * POCT Glucose (11/03/2019 12:13 PM EDT) Glucose, POC 92 65 - 199 mg/dL [facility] Comment: Supplemental ranges: <140 mg/dL before meals <180 mg/dL all other times of the day Blood specimen (specimen) 11/03/2019 12:13 PM EDT 11/03/2019 12:13 PM EDT Casey Singh MD POINT OF CARE TEST O LORI Performing Organization Address City/[facility]/ZIP Co de Phone Number [facility] [place] [address] * POCT Glucose (11/03/2019 8:24 AM EDT) Pathologist [facility] Glucose, POC 113 65 - 199 mg/dL [facility] Comment: Supplemental ranges: <140 mg/dL before meals <180 mg/dL all other times of the day Blood specimen (specimen) 11/03/2019 8:24 AM EDT 11/03/2019 8:24 AM EDT Casey Singh MD POINT OF CARE TEST O RDERABLES [facility] [place] [address] * Differential, Automated (11/03/2019 5:26 AM EDT) [facility] Neutrophil % 59.6 % [facility] Neutrophil Absolute 4.42 1.70 - 6.10 x10(3)/[facility] LABOR[facility] Lymph % 25.9 % [facility] Lymphocytes Abs 1.9 0.9 - 3.2 x10(3)/[facility] LABOR[facility]ORY Monocyte % 8.2 % [facility] Monocyte Abs 0.6 0.3 - 0.9 x10(3)/[facility] LABOR[facility] Eos % 5.1 % [facility] Eosinophils Abs 0.4 0.0 - 0.4 x10(3)/[facility] LABOR[facility]ORY Basophil % 0.9 % [facility] Baso Absolute 0.1 0.0 - 0.1 x10(3)/[facility] LABORATORY Immature Gran % 0.30 % [facility] Comment: Immature granulocytes(IG's)percentage and absolute count will include metamyelocytes, myelocytes, and promyelocytes. Blood smears from CBCs yielding IG's will be scanned manually for concordance. If this scan disagrees with the automated IG or if promyelocytes are noted, a manual differential will be performed. Immature Gran Absolute 0.02 0.00 - 0.04 x10(3)/[facility] LABOR[facility]ORY Blood specimen (specimen) 11/03/2019 5:26 AM EDT 11/03/2019 5:43 AM EDT Narrative Resulting Agency Comment Spec In Lab Maty Mcfadden MULTI DISCIPLINED LANGUAGE ANALYST HEMATOLOGY ORDERABLE S [facility] [place] [address] * (ABNORMAL) Hemogram (11/03/2019 5:26 AM EDT) White Blood Cell 7.4 4.0 - 9.5 x10(3)/[facility] LABORATORY Red Blood Cell 4.46(L) 4.58 - 5.54 x10(6)/[facility] LABORATORY Hemoglobin 13.7 13.7 - 16.5 gm/dL [facility] Hematocrit 41.8 40.5 - 48.5 % [facility] Mean Cell Volume 93.7(H) 82.9 - 93.1 [facility] LABORATORY Mean Cell Hemoglobin 30.7 27.5 - 32.1 pg [facility] Mean Cell Hemoglobin Concentration 32.8 32.0 - 35.7 gm/dL [facility] Platelet 187 145 - 357 x10(3)/[facility] LABORATORY RDW Standard Deviation 44.2 36.0 - 45.0 [facility]ORY RDW coefficient of variation 12.8 11.4 - 13.8 % [facility] Mean Platelet Volume 10.2 7.6 - 12.9 [facility] NRBC% auto 0.0 % [facility] NRBC Absolute 0.000 0.000 - 0.000 x10(3)/[facility] LABORATORY Blood specimen (specimen) 11/03/2019 5:26 AM EDT 11/03/2019 5:43 AM EDT Narrative Resulting Agency Comment Spec In Lab Maty Mcfadden MULTI DISCIPLINED LANGUAGE ANALYST HEMATOLOGY ORDERABLE S [facility] [place] [address] * Basic Metabolic Panel (non-fasting) (11/03/2019 5:26 AM EDT) Glucose 104 65 - 199 mg/dL [facility] Comment:Diabetes: >=200 mg/d L plus symptoms Blood Urea Nitrogen 13 10 - 20 mg/dL [facility] Creatinine 0.99 0.80 - 1.50 mg/dL [facility] Sodium 140 135 - 145 mmol/L [facility] Potassium 4.3 3.5 - 5.0 mmol/L [facility] Comment: Please note: ??Patients with WBC >100,000 may have falsely elevated Potassium levels. ??For accurate Potassium quantification in these patients send serum separator tube (gold top) for subsequent determinations. ??Contact the Clinical Chemistry Laboratory if there are any questions. Chloride 106 98 - 107 mmol/L [facility] Carbon Dioxide 24 22 - 31 mmol/L [facility] Anion Gap 10 5 - 15 mmol/L [facility] Calcium 8.7 8.5 - 10.5 mg/dL [facility] Est Glomerular Filtration Rate 75 >=60 mL/min/1. 73 m?? [facility] Comment: The eGFR was calculated using the CKD-EPI equation. As with all creatinine based estimates of kidney function, eGFR values calculated with the CKD-EPI equation are not accurate in patients with acute kidney failure, extremes of body mass or the acutely ill. [email or web address] eGFR 87 >=60 mL/min/1. 73 m?? [facility] Comment: The eGFR was calculated using the CKD-EPI equation. As with all creatinine based estimates of kidney function, eGFR values calculated with the CKD-EPI equation are not accurate in patients with acute kidney failure, extremes of body mass or the acutely ill. [email or web address] Blood specimen (specimen) 11/03/2019 5:26 AM EDT 11/03/2019 5:43 AM EDT Narrative Resulting Agency Comment Spec In Lab Casey Singh MD CHEMISTRY ORDERABLES [facility] [place] [address] * (ABNORMAL) Hemogram (11/02/2019 11:03 PM EDT) White Blood Cell 8.6 4.0 - 9.5 x10(3)/[facility] LABORATORY Red Blood Cell 4.29(L) 4.58 - 5.54 x10(6)/[facility] LABORATORY Hemoglobin 13.2(L) 13.7 - 16.5 gm/dL [facility] Hematocrit 40.2(L) 40.5 - 48.5 % [facility] Mean Cell Volume 93.7(H) 82.9 - 93.1 [facility] LABORATORY Mean Cell Hemoglobin 30.8 27.5 - 32.1 pg [facility] Mean Cell Hemoglobin Concentration 32.8 32.0 - 35.7 gm/dL [facility] Platelet 177 145 - 357 x10(3)/[facility] LABORATORY RDW Standard Deviation 44.3 36.0 - 45.0 [facility] LAB[facility]ORY RDW coefficient of variation 13.0 11.4 - 13.8 % [facility] Mean Platelet Volume 10.1 7.6 - 12.9 [facility] LAB[facility]ORY NRBC% auto 0.0 % [facility] NRBC Absolute 0.000 0.000 - 0.000 x10(3)/[facility] LABORATORY Blood specimen (specimen) 11/02/2019 11:03 PM EDT 11/02/2019 11:07 PM EDT Narrative Resulting Agency Comment Spec In Lab Maty Lin MULTI DISCIPLINED LANGUAGE ANALYST HEMATOLOGY ORDERABLE S Performing Organization Address City/[facility]/ZIP Co de Phone Number [facility] [place] [address] * APTT (11/02/2019 11:03 PM EDT) Partial Thromboplastin Time 31 25 - 37 sec [facility] Comment: The PTT is NOT appropriate for heparin monitoring. Use the Anti-Xa level for heparin monitoring (HEP UFH) or LMWH monitoring (HEP LMW). A PTT less than 37 seconds generally indicates adequate hemostasis. Blood specimen (specimen) 11/02/2019 11:03 PM EDT 11/02/2019 11:07 PM EDT Narrative Resulting Agency Comment Spec In Lab Maty Lin MULTI DISCIPLINED LANGUAGE ANALYST HEMATOLOGY ORDERABLE S Performing Organization Address [facility] Co de Phone Number [facility] [place] [address] * Prothrombin Time (11/02/2019 11:03 PM EDT) Prothrombin Time 11.4 9.4 - 12.5 sec [facility] International Normalization Ratio 1.0 [facility] Comment: An INR <2.0 indicates [...] Agency Comment Spec In Lab Maty Lin MULTI DISCIPLINED LANGUAGE ANALYST HEMATOLOGY ORDERABLE S Performing Organization Address [facility]/ZIP Co de Phone Number [facility] [place] [address] * CT Head wo Contrast (Generic) (11/02/2019 [...] ventricle.The suprasellar and basal cisterns are patent. Nan-white differentiation isnormal. IMPRESSION Minimally decreased size of [...] Glucose, POC 133 65 - 199 mg/dL [facility] Comment: Supplemental ranges: <140 mg/dL before meals <180 mg/dL all other times of the day Blood specimen (specimen) 11/02/2019 7:49 PM EDT 11/02/2019 7:49 PM EDT Casey Singh MD POINT OF CARE TEST O LORI [facility] [place] [address] * POCT Glucose (11/02/2019 5:06 PM EDT) Glucose, POC 98 65 - 199 mg/dL [facility] Comment: Supplemental ranges: <140 mg/dL before meals <180 mg/dL all other times of the day Blood specimen (specimen) 11/02/2019 5:06 PM EDT 11/02/2019 5:06 PM EDT Casey Singh MD POINT OF CARE TEST O LORI Performing Organization Address City/[facility]/ZIP Co de Phone Number [facility] [place] [address] * POCT Glucose (11/02/2019 12:31 PM EDT) Glucose, POC 111 65 - 199 mg/dL [facility] Comment: Supplemental ranges: <140 mg/dL before meals <180 mg/dL all other times of the day Blood specimen (specimen) 11/02/2019 12:31 PM EDT 11/02/2019 12:31 PM EDT Casey Singh MD POINT OF CARE TEST O LORI [facility] [place] [address] * POCT Glucose (11/02/2019 8:06 AM EDT) Pathologist [facility] Glucose, POC 99 65 - 199 mg/dL [facility] Comment: Supplemental ranges: <140 mg/dL before meals <180 mg/dL all other times of the day Blood specimen (specimen) 11/02/2019 8:06 AM EDT 11/02/2019 8:06 AM EDT Casey Singh MD POINT OF CARE TEST O RDERABLES [facility] [place] [address] * Differential, Automated (11/02/2019 1:01 AM EDT) [facility] Neutrophil % 54.8 % [facility] Neutrophil Absolute 4.21 1.70 - 6.10 x10(3)/[facility] LABORATORY Lymph % 29.7 % [facility] Lymphocytes Abs 2.3 0.9 - 3.2 x10(3)/[facility] LABORATORY Monocyte % 9.0 % [facility] Monocyte Abs 0.7 0.3 - 0.9 x10(3)/[facility] LABORATORY Eos % 5.2 % [facility] Eosinophils Abs 0.4 0.0 - 0.4 x10(3)/[facility] Basophil % 1.0 % [facility] Baso Absolute 0.1 0.0 - 0.1 x10(3)/[facility] Immature Gran % 0.30 % [facility] Comment: Immature granulocytes(IG's)percentage and absolute count will include metamyelocytes, myelocytes, and promyelocytes. Blood smears from CBCs yielding IG's will be scanned manually for concordance. If this scan disagrees with the automated IG or if promyelocytes are noted, a manual differential will be performed. Immature Gran Absolute 0.02 0.00 - 0.04 x10(3)/[facility] Blood specimen (specimen) 11/02/2019 1:01 AM EDT 11/02/2019 1:14 AM EDT Narrative Resulting Agency Comment Spec In Lab Maty Hairston Bogdan MULTI DISCIPLINED LANGUAGE ANALYST HEMATOLOGY ORDERABLE S Performing Organization Address City/State/[facility] Co de Phone Number [facility] [place] [address] * (ABNORMAL) Hemogram (11/02/2019 1:01 AM EDT) White Blood Cell 7.7 4.0 - 9.5 x10(3)/ L [facility] Red Blood Cell 4.36(L) 4.58 - 5.54 x10(6)/mc L [facility] Hemoglobin 13.6(L) 13.7 - 16.5 gm/dL [facility] Hematocrit 40.6 40.5 - 48.5 % [facility] Mean Cell Volume 93.1 82.9 - 93.1 [facility] Mean Cell Hemoglobin 31.2 27.5 - 32.1 pg [facility] Mean Cell Hemoglobin Concentration 33.5 32.0 - 35.7 gm/dL [facility] Platelet 176 145 - 357 x10(3)/mc L [facility] RDW Standard Deviation 43.7 36.0 - 45.0 [facility] RDW coefficient of variation 12.7 11.4 - 13.8 % [facility] Mean Platelet Volume 10.2 7.6 - 12.9 [facility] NRBC% auto 0.0 % [facility] NRBC Absolute 0.000 0.000 - 0.000 x10(3)/ L [facility] Blood specimen (specimen) 11/02/2019 1:01 AM EDT 11/02/2019 1:14 AM EDT Narrative Resulting Agency Comment Spec In Lab Maty Hairston Bogdan MULTI DISCIPLINED LANGUAGE ANALYST HEMATOLOGY ORDERABLE S [facility] [place] [address] * Basic Metabolic Panel (non-fasting) (11/02/2019 1:01 AM EDT) Glucose 88 65 - 199 mg/dL [facility] Comment:Diabetes: >=200 mg/d L plus symptoms Blood Urea Nitrogen 12 10 - 20 mg/dL [facility] Creatinine 1.12 0.80 - 1.50 mg/dL [facility] Sodium 141 135 - 145 mmol/L [facility] Potassium 4.0 3.5 - 5.0 mmol/L [facility] Comment: Please note: ??Patients with WBC >100,000 may have falsely elevated Potassium levels. ??For accurate Potassium quantification in these patients send serum separator tube (gold top) for subsequent determinations. ??Contact the Clinical Chemistry Laboratory if there are any questions. Chloride 107 98 - 107 mmol/L [facility] Carbon Dioxide 26 22 - 31 mmol/L [facility] Anion Gap 8 5 - 15 mmol/L [facility] Calcium 9.1 8.5 - 10.5 mg/dL [facility] Est Glomerular Filtration Rate 65 >=60 mL/min/1. 73 m?? [facility] Comment: The eGFR was calculated using the CKD-EPI equation. As with all creatinine based estimates of kidney function, eGFR values calculated with the CKD-EPI equation are not accurate in patients with acute kidney failure, extremes of body mass or the acutely ill. [email or web address] eGFR 75 >=60 mL/min/1. 73 m?? [facility] Comment: The eGFR was calculated using the CKD-EPI equation. As with all creatinine based estimates of kidney function, eGFR values calculated with the CKD-EPI equation are not accurate in patients with acute kidney failure, extremes of body mass or the acutely ill. [email or web address] Blood specimen (specimen) 11/02/2019 1:01 AM EDT 11/02/2019 1:14 AM EDT Narrative Resulting Agency Comment Spec In Lab Casey Singh MD CHEMISTRY ORDERABLES [facility] [place] [address] * COVID-19 PCR (11/01/2019 11:17 PM EDT) SARS-CoV-2 RNA (Rapid) Not Detected Not Detected [facility] Comment: This result should be [...] using the Simplexa COVID-19 Direct Assay by Moped as authorized by the FDA issued Emergency [...] Department of Pathology and Laboratory Medicine at [facility], certified under the Clinical Laboratory Improvement [...] Information for Healthcare Professionals (https://www.cdc.gov/coronavirus/2019-ncov/hcp/index.html). SARS-CoV-2 Source [employer] SALESP[employer] [facility] Nasopharyngeal swab (specimen) 11/01/2019 11:17 PM EDT 11/02/2019 12:04 AM EDT Comment:Symptoms->Surveillan ce Narrative Resulting Agency Comment Spec In Lab Camila Troy MD MICROBIOLOGY - GEN ERAL ORDERABLES Performing Organization Address [facility]/ZIP Co de Phone Number [facility] [place] [address] * ABORH Recheck Status (11/01/2019 9:14 PM EDT) ABORH Recheck Order Order Placed [facility] ABORH Type Recheck Complete [facility] Blood specimen (specimen) 11/01/2019 9:14 PM EDT 11/01/2019 9:30 PM EDT Narrative Resulting Agency Comment Spec In Lab Maty Lin MULTI DISCIPLINED LANGUAGE ANALYST BLOOD BANK LAB ORDER EMILIANO Performing Organization Address [facility] Co de Phone Number [facility] [place] [address] * Antibody screen (11/01/2019 9:14 PM EDT) Ab Screen Interp Negative [facility] Expires at [id number] on: 11/04/2019 [facility] Blood specimen (specimen) 11/01/2019 9:14 PM EDT 11/01/2019 9:30 PM EDT Narrative Resulting Agency Comment Spec In Lab Maty A Bogdan MULTI DISCIPLINED LANGUAGE ANALYST BLOOD BANK LAB ORDER EMILIANO Performing Organization Address City/[facility]/ZIP Co de Phone Number [facility] [place] [address] * ABO/Rh Typing (11/01/2019 9:14 PM EDT) Pathologist [facility] ABORH Type B Pos [facility] Blood specimen (specimen) 11/01/2019 9:14 PM EDT 11/01/2019 9:30 PM EDT Narrative Resulting Agency Comment Spec In Lab Maty Mcfadden MULTI DISCIPLINED LANGUAGE ANALYST BLOOD BANK LAB ORDER EMILIANO [facility] [place] [address] * Gold Tube HOLD (11/01/2019 9:14 PM EDT) [facility] Gold Hold Sample in lab. [facility] Blood specimen (specimen) Venous Draw / Unknown 11/01/2019 9:14 PM EDT 11/01/2019 9:30 PM EDT Maty Lin MULTI DISCIPLINED LANGUAGE ANALYST CHEMISTRY ORDERABLES [facility] [place] [address] * Differential, Automated (11/01/2019 9:14 PM EDT) [facility] Neutrophil % 49.4 % [facility] Neutrophil Absolute 3.05 1.70 - 6.10 x10(3)/[facility] Lymph % 35.6 % [facility] Lymphocytes Abs 2.2 0.9 - 3.2 x10(3)/[facility] Monocyte % 8.8 % [facility] Monocyte Abs 0.5 0.3 - 0.9 x10(3)/[facility] Eos % 4.9 % [facility] Eosinophils Abs 0.3 0.0 - 0.4 x10(3)/[facility] Basophil % 1.1 % [facility] Baso Absolute 0.1 0.0 - 0.1 x10(3)/[facility] Immature Gran % 0.20 % [facility] Comment: Immature granulocytes(IG's)percentage and absolute count will include metamyelocytes, myelocytes, and promyelocytes. Blood smears from CBCs yielding IG's will be scanned manually for concordance. If this scan disagrees with the automated IG or if promyelocytes are noted, a manual differential will be performed. Immature Gran Absolute 0.01 0.00 - 0.04 x10(3)/[facility] Blood specimen (specimen) 11/01/2019 9:14 PM EDT 11/01/2019 9:29 PM EDT Narrative Resulting Agency Comment Spec In Lab Maty Mcfadden APRN HEMATOLOGY ORDERABLE S [facility] [place] [address] * (ABNORMAL) Hemogram (11/01/2019 9:14 PM EDT) White Blood Cell 6.2 4.0 - 9.5 x10(3)/mc L [facility] Red Blood Cell 4.51(L) 4.58 - 5.54 x10(6)/mc L [facility] Hemoglobin 13.6(L) 13.7 - 16.5 gm/dL [facility] Hematocrit 41.5 40.5 - 48.5 % [facility] Mean Cell Volume 92.0 82.9 - 93.1 fL [facility] Mean Cell Hemoglobin 30.2 27.5 - 32.1 pg [facility] Mean Cell Hemoglobin Concentration 32.8 32.0 - 35.7 gm/dL [facility] Platelet 185 145 - 357 x10(3)/mc L [facility] RDW Standard Deviation 43.5 36.0 - 45.0 fL [facility] RDW coefficient of variation 12.8 11.4 - 13.8 % [facility] Mean Platelet Volume 10.4 7.6 - 12.9 fL [facility] NRBC% auto 0.0 % [facility] NRBC Absolute 0.000 0.000 - 0.000 x10(3)/mc L [facility] Blood specimen (specimen) 11/01/2019 9:14 PM EDT 11/01/2019 9:29 PM EDT Narrative Resulting Agency Comment Spec In Lab Maty Mcfadden MULTI DISCIPLINED LANGUAGE ANALYST HEMATOLOGY ORDERABLE S Performing Organization Address [facility] Co de Phone Number [facility] [place] [address] * APTT (11/01/2019 9:14 PM EDT) Partial Thromboplastin Time 30 25 - 37 sec [facility] Comment: The PTT is NOT appropriate for heparin monitoring. Use the Anti-Xa level for heparin monitoring (HEP UFH) or LMWH monitoring (HEP LMW). A PTT less than 37 seconds generally indicates adequate hemostasis. Blood specimen (specimen) 11/01/2019 9:14 PM EDT 11/01/2019 9:29 PM EDT Narrative Resulting Agency Comment Spec In Lab Maty Mcfadden MULTI DISCIPLINED LANGUAGE ANALYST HEMATOLOGY ORDERABLE S Performing Organization Address [facility] Co de Phone Number [facility] [place] [address] * Prothrombin Time (11/01/2019 9:14 PM EDT) Prothrombin Time 12.4 9.4 - 12.5 sec [facility] International Normalization Ratio 1.1 [facility] Comment: An INR <2.0 indicates [...] Lab Maty Mcfadden CHRIS HEMATOLOGY ORDERABLE S [facility] [place] [address] * Basic Metabolic Panel (non-fasting) (11/01/2019 9:14 PM EDT) Glucose 87 65 - 199 mg/dL [facility] Comment:Diabetes: >=200 mg/d L plus symptoms Blood Urea Nitrogen 14 10 - 20 mg/dL [facility] Creatinine 0.92 0.80 - 1.50 mg/dL [facility] Sodium 138 135 - 145 mmol/L [facility] Potassium 3.9 3.5 - 5.0 mmol/L [facility] Comment: Please note: ??Patients with WBC >100,000 may have falsely elevated Potassium levels. ??For accurate Potassium quantification in these patients send serum separator tube (gold top) for subsequent determinations. ??Contact the Clinical Chemistry Laboratory if there are any questions. Chloride 103 98 - 107 mmol/L [facility] Carbon Dioxide 23 22 - 31 mmol/L [facility] Anion Gap 12 5 - 15 mmol/L [facility] Calcium 9.2 8.5 - 10.5 mg/dL [facility] Est Glomerular Filtration Rate 82 >=60 mL/min/1. 73 m?? [facility] Comment: The eGFR was calculated using the CKD-EPI equation. As with all creatinine based estimates of kidney function, eGFR values calculated with the CKD-EPI equation are not accurate in patients with acute kidney failure, extremes of body mass or the acutely ill. http://[email or web address] eGFR 95 >=60 mL/min/1. 73 m?? [facility] Comment: The eGFR was calculated using the CKD-EPI equation. As with all creatinine based estimates of kidney function, eGFR values calculated with the CKD-EPI equation are not accurate in patients with acute kidney failure, extremes of body mass or the acutely ill. [email or web address] Blood specimen (specimen) 11/01/2019 9:14 PM EDT 11/01/2019 9:29 PM EDT Narrative Resulting Agency Comment Spec In Lab Maty Mcfadden MULTI DISCIPLINED LANGUAGE ANALYST CHEMISTRY ORDERABLES Performing Organization Address [facility]/ZIP Co de Phone Number [facility] [place] [address] * Film Library- Storage Only DX Chest (11/01/2019 8:28 PM EDT) Narrative [facility] 11/01/2019 8:28 PM EDT This exam is auto-finalizing. It's purpose is for storage only. Casey Singh MD IMG FILM LIBRARY ORD ERABLES Performing Organization Address [facility] Co de Phone Number [place], [place] documented in this encounter Visit Diagnoses [...] Pain, Mild pain (1-3), Give per rectum (OR) if unable to take PO. Do not [...] Procedural area)1604 (MAR Unhold - Provider: Admin Adt)2044 (Given - [...] Margie Knowles RN)2002 (Given - Provider: Basilia Rowe, ABIGAIL) 0833 (Given - Provider: Kary Saeed, ABIGAIL)1601 [...] Adt)2043 (Given - Provider: Belgica Goldsmith RN) 0900 (Given - Provider: Margie Knowles, ABIGAIL)2003 (Given - Provider: Basilia Rowe RN) 0834 [...] on Thu11/02/19 at 0900, Until Discontinued, Routine 09 (Due - Provider: Admin Adt)1344 (JUN Hold [...] Minutes 0557 (New Bag - Provider: Belgica Goldmsith RN)0657 (Stopped - Provider: Belgica Goldsmith RN)1344 [...] (New Bag - Provider: Belgica Goldsmith RN)1344 ([facility] Hold - Provider: Admin Adt - Reason: Transfer to a Procedural area)1604 ([facility] Unhold - Provider: Admin Adt)2000 (Rate/Dose Verify - Provider: Belgica Goldsmith RN) PRN Medication Order 11/14/2019 11/15/2019 11/16/2019 acetaminophen (Tylenol) suppository 650 mg(Linked Group 2) 650 mg, Rectal, EVERY 4 HOURS PRN, Starting on Thu11/02/19 at 0024, Until Thu11/16/19 at 2010, Pain, Mild pain (1-3), Give per rectum (OR) if unable to take PO. Do not exceed 4000 mg acetaminophen per day., Routine 0557 (See Alternative - Provider: Belgica Goldsmith RN)1344 (MAR Hold - Provider: Admin Adt - Reason: Transfer to a Procedural area)1604 (MAR Unhold - Provider: Admin Adt)1952 (See Alternative [...] area)1604 (JUN Unhold - Provider: Admin Adt)1952 (Given - [...] Reason: Transfer to a Procedural area)1604 ([facility] Unhold - Provider: Admin Adt) 2009 (Given [...] of the active insulin., Routine 1344 ([facility] Hold - Provider: Admin Adt - Reason: Transfer to a Procedural area)1604 ([facility] Unhold - Provider: Admin Adt) glucose (GLUTOSE) [...] tube = 37.5 grams., Routine 1344 ([facility] Hold - Provider: Admin Adt - Reason: Transfer to a Procedural area)1604 ([facility] Unhold - Provider: Admin Adt) hydrALAZINE (APRESOLINE) [...] ineffective after 1 hour., Routine 1344 ([facility] Hold - Provider: Admin Adt - Reason: Transfer to a Procedural area)1437 (Given - Provider: Destiny Rojo RN - Comment: SBP >160)1441 (JUN Unhold - Provider: Destiny Rojo RN) labetalol [...] than 50 beats per minute., Routine 1344 (JUN Hold - Provider: Admin Adt - Reason: Transfer to a Procedural area)1604 (JUN Unhold - Provider: Admin Adt) ondansetron (ZOFRAN) injection 4-8 mg(Linked Group 4) 4-8 mg, Intravenous, EVERY 8 HOURS PRN, Starting on Thu11/02/19 at 0024, Until Thu11/16/19 at 2010, Nausea, If multiple antiemetics are ordered, use ondansetron first, prochlorperazine second, and metaclopramide third. Start with 4mg and if ineffective in 30 minutes, give an additional 4mg 1344 (JUN Hold - Provider: Admin Adt - Reason: Transfer to a Procedural area)1604 ([facility] Unhold - Provider: Admin Adt) ondansetron (Zofran) [...] give an additional 4mg, Routine 1344 ([facility] Hold - Provider: Admin Adt - Reason: Transfer to a Procedural area)1604 ([facility] Unhold - Provider: Admin Adt) oxyCODONE (Roxicodone) tablet 10-15 mg (CANCELED) 10-15 mg, Oral, EVERY 4 HOURS PRN, Starting on Francisca 11/10/19 at 2012, Until Thu11/15/19 at 1224, Pain, severe pain (7-10), Initial dose 10mg. If pain control not adequate in 60 minutes, give additional 5mg, Routine 0557 (Given - Provider: Belgica Goldsmith, ABIGAIL)1344 ([facility] Hold - Provider: Admin Adt - Reason: Transfer to a Procedural area)160 ([facility] Unhold - Provider: Admin Adt)1951 (Given - Provider: Belgica Goldsmith, ABIGAIL) 031 (Given - Provider: Belgica Goldsmith, ABIGAIL) oxyCODONE (Roxicodone) tablet 5 mg(Linked Group 5) [...] Thu11/16/19 at 2010, Constipation, Routine 1344 ([facility] Hold - Provider: Admin Adt - Reason: Transfer to a Procedural area)160 ([facility] Unhold - Provider: Admin Adt)2042 (Given - Provider: Belgica Goldsmith, ABIGAIL) 0930 (Given - Provider: Margie Knowles, ABIGAIL) senna-docusate (Pericolace) 8.6-50 mg per tablet 2 tablet (CANCELED) 2 tablet, Oral, 2 TIMES DAILY PRN, Starting on Thu11/04/19 at 0814, Until Thu11/15/19 at 1249, Constipation, Routine 1344 ([facility] Hold - Provider: Admin Adt - Reason: Transfer to a Procedural area)160 ([facility] Unhold - Provider: Admin Adt)2043 (Given - [...] Pain, Mild pain (1-3), Give per rectum (OR) if unable to take PO. Do not [...] 8 HOURS PRN, Starting on Thu11/02/19 at 002, Until Thu11/16/19 at 2010, Nausea, Vomiting, If [...] Routine documented in this encounter Care Teams Net Developer With Wcf Relationship Specialty Start Date End Date Shyam Harvey MD PCP - General General Internal Medicine 02/09/18/ documented as of this encounter
--- OUTSIDE RECORDS SUMMARY | 2023-12-15 18:12 | XMS_ITS | Encounter Summary ---
Author Organization [facility] Address [address] [place] [address] Care Team Providers Care Cake Former Name Role Phone Unknown, Provider Primary Care Provider [phone] Encounter Details Date Type Department Care Team (Late st Contact Info) Description 02/05/2022 Lab Requisition [facility] Pathology & Laboratory Medicine - [facility] [address] [place] [address] Outr Resulting Lab, Provider Social History Tobacco [...] Associated Diagnosis Comments PSA TOTAL, DIAGNOSTIC Routine 02/05/2022 14:22 EDT documented in this encounter Results * (ABNORMAL) PSA TOTAL, DIAGNOSTIC (02/05/2022 14:22 EDT) PSA 7.4(H) <=6.5 ng/mL 02/05/2022 23:03 EDT [facility] Blood VENOUS BLOOD / Unknown 02/05/2022 14:22 EDT 02/05/2022 22:18 EDT Narrative [facility] - 02/05/2022 23:03 EDT NOTE: Serum PSA concentration should not be interpreted as absolute evidence for the presence or absence of malignant disease. Assayed on Siemens ADVIA MobileHandshakeaur XPT using chemiluminescent technology.??Values obtained by using different assay methods cannot be used interchangeably. Provider Outr Resulting Lab CHEMISTRY & BLOOD GAS ORDERABLES [facility] [address] [place] [address] documented in this encounter Visit Diagnoses Not on filedocumented in this encounter Care Teams Cake Former Relationship Specialty Start Date End Date Unknown, Provider, PCP - General 08/20/09 documented as of this encounter
--- OUTSIDE RECORDS SUMMARY | 2023-12-15 18:12 | XMS_ITS | Clinical Summary ---
Author Organization [facility] Address [address] [place] [address] Care Team Providers Care Pipelines Laborer Name Role Phone Unknown, Provider Primary Care Provider [phone] Social History Tobacco Use Types Packs/Day Years Used Date Smoking Tobacco: Never Assessed Sex and Gender Information Value Date Recorded Sex Assigned at Not on file Gender Identity Not on file Sexual Orientation Not on file Plan of Treatment Health Maintenance Due Date Last Done Comments Hepatitis C Screen 1945 RSV Immunization ( o r 60+ Years) (1 - 1-dose 60+ series) 2006 Fall Risk Screening 09/18/2011 COVID-19 Vaccine (2022-24 season) 2022 Care Teams Pipelines Laborer Relationship Specialty Start Date End Date Unknown, Provider, PCP - General 08/20/09
--- OUTSIDE RECORDS SUMMARY | 2023-12-15 18:12 | XMS_ITS | Encounter Summary ---
Author Organization [facility] [place] [address] Care Team Providers Care Voice Writing Reporter Name Role Phone Shyam Harvey MD Primary Care Provider [phone] Encounter Details Date Type Department Care Team (Late st Contact Info) Description 11/01/2019 External Results [place] [address] Casey Singh MD [facility] [place] [place] [address] Social History Tobacco Use Types Packs/Day Years [...] Name Priority Date/Time Associated Diagnosis Comments CT SCAN (SCAN) Routine 11/01/2019 documented in this encounter Results * Scan Doc: CT Scan (11/01/2019) Anatomical Region Laterality Modality Other Casey Singh MD MEDIA MGR SCAN EXT O RDR/RSLT documented in this encounter Visit Diagnoses Not on filedocumented in this encounter Care Teams Voice Writing Reporter Relationship Specialty Start Date End Date Shyam Harvey MD PCP - General General Internal Medicine 02/09/18 9/3 documented as of this encounter
--- OUTSIDE RECORDS SUMMARY | 2023-12-15 18:12 | XMS_ITS | Encounter Summary ---
Author Organization [facility] Address [address] [place] [address] Care Team Providers Care Improvement Auditor Name Role Phone Unknown, Provider Primary Care Provider [phone] Encounter Details Date Type Department Care Team (Late st Contact Info) Description 10/24/2020 Lab Requisition [facility] Pathology & Laboratory Medicine - [facility] [address] [place] [address] Outr Resulting Lab, Provider Social History Tobacco [...] Associated Diagnosis Comments PSA TOTAL, DIAGNOSTIC Routine 10/24/2020 14:15 EDT documented in this encounter Results * (ABNORMAL) PSA TOTAL, DIAGNOSTIC (10/24/2020 14:15 EDT) PSA 13.9(H) 0.0 - 6.5 ng/mL 10/24/2020 21:42 EDT [facility] Blood VENOUS BLOOD / Unknown 10/24/2020 14:15 EDT 10/24/2020 20:46 EDT Narrative [facility] - 10/24/2020 21:42 EDT NOTE: Serum PSA concentration should not be interpreted as absolute evidence for the presence or absence of malignant disease. Assayed on Siemens ADVIA Propancaur XPT using chemiluminescent technology.??Values obtained by using different assay methods cannot be used interchangeably. Provider Outr Resulting Lab CHEMISTRY & BLOOD GAS ORDERABLES [facility] [address] [place] [address] documented in this encounter Visit Diagnoses Not on filedocumented in this encounter Care Teams Improvement Auditor Relationship Specialty Start Date End Date Unknown, Provider, PCP - General 08/20/09 documented as of this encounter
--- OUTSIDE RECORDS SUMMARY | 2023-12-15 18:12 | XMS_ITS | Encounter Summary ---
Author Organization [facility] [place] [address] Care Team Providers Care Molder Closed Molds Name Role Phone Shyam Harvey MD Primary Care Provider [phone] Encounter Details Date Type Department Care Team (Late st Contact Info) Description 11/01/2019 4:00 PM EDT Ancillary Procedure [place] [address] Casey Singh MD [facility] [place] [address] Social History Tobacco Use Types Packs/Day Years Used Date Smoking Tobacco: Former Cigarettes 1 50 1 613 - 2002 Sex and Gender Information Value Date Recorded Sex Assigned at Not on file Gender Identity Not on file Sexual Orientation Not on file documented as of this encounter Plan of Treatment Not on file documented as of this encounter Procedures Procedure Name Priority Date/Time Associated Diagnosis Comments FILM LIBRARY STORAGE ONLY CT HEAD Routine 11/01/2019 3:58 PM EDT documented in this encounter Results * Film Library- Storage Only CT Head (11/01/2019 3:58 PM EDT) Narrative [facility] - 11/01/2019 3:58 PM EDT This exam is auto-finalizing. It's purpose is for storage only. Casey Singh MD [facility] FILM LIBRARY ORD ERABLES [place], [place] documented in this encounter Visit Diagnoses Not on filedocumented in this encounter Care Teams Molder Closed Molds Relationship Specialty Start Date End Date Shyam Harvey MD PCP - General General Internal Medicine 02/09/1812/21 documented as of this encounter
== END 2023-12-15 17:58 | disposition home or self-care (01) ==
LOC: LBN 17:57
PROVIDERS: PCP Nurse Practitioner Family; Visit Provider Nurse Practitioner Family
DX: N30.01 Acute cystitis with hematuria (principal); R82.89 Other abnormal findings on cytological and histological examination of urine
CPT/HCPCS: 87077; 87086; 87186

== ENCOUNTER 2024-04-21 04:07 | Outpatient (CLI) | payer MEDICARE, SELFPAY ==
[2024-04-21 22:58] LABS: PSA, Diagnostic 5.4 ng/mL (<=6.5)
== END 2024-04-21 04:08 | disposition home or self-care (01) ==
LOC: LBO 04:07
PROVIDERS: PCP Nurse Practitioner Family; Visit Provider Nurse Practitioner Gerontology
DX: R97.20 Elevated prostate specific antigen [PSA] (principal); N40.1 Benign prostatic hyperplasia with lower urinary tract symptoms; N13.8 Other obstructive and reflux uropathy
CPT/HCPCS: 36415; 84153

== ENCOUNTER → 2024-04-28 13:59 | Outpatient (BNVA) | payer MEDICARE, SELFPAY | PROVIDERS: PCP Nurse Practitioner Family; Visit Provider Nurse Practitioner Gerontology | DX: N40.1 Benign prostatic hyperplasia with lower urinary tract symptoms (principal); N13.8 Other obstructive and reflux uropathy; R97.20 Elevated prostate specific antigen [PSA] | CPT/HCPCS: 51798; 99213 ==

== ENCOUNTER 2024-06-28 01:21 | Outpatient (CLI) | payer MEDICARE, SELFPAY ==
--- NOTE | 2024-06-28 | DI.RAD_ITS ---
Exam(s) XR CHEST 2V PA LATERAL EXAM: XR CHEST 2V PA LATERAL CLINICAL HISTORY: COUGH,R05.9 TECHNIQUE: 2D digital imaging was performed of the chest. Two images were obtained. PA and lateral views were obtained. COMPARISON: CR CHEST 2 VIEWS PA,LAT from 11/22/2017 CR XR PORTABLE CHEST AP from 11/01/2019 FINDINGS: MEDIASTINUM: Normal. HEART: Normal. PULMONARY VASCULATURE: Normal. LUNGS: There are few small opacity seen in the left perihilar region not present on the prior examina tion. The right lung is clear. PLEURAL SPACE: No pleural effusion or pneumothorax. BONE:Within normal limits for the patient's age. OTHER FINDINGS:Normal. IMPRESSION: Left perihilar infiltrate. This may represent atelectasis or pneumonia. Please correlate clinically . DATA REPOSITORY: RADIATION DOSE DELIVERED:
== END 2024-06-28 01:41 ==
PROVIDERS: PCP Nurse Practitioner Family; Visit Provider Nurse Practitioner Family
DX: R91.8 Other nonspecific abnormal finding of lung field (principal)
CPT/HCPCS: 71046

== ENCOUNTER 2024-09-22 02:29 | Outpatient (CLI) | payer MEDICARE, SELFPAY ==
--- NOTE | 2024-09-22 | DI.CT_ITS ---
Exam(s) CT HEAD WO EXAM: CT HEAD WO CLINICAL HISTORY: Amnesia, R41.3. TECHNIQUE: Imaging Protocol: Axial computed tomography images with coronal and sagittal reformatted images were created and reviewed COMPARISON: CT CT HEAD WO from 02/24/2020 FINDINGS: Embolization coils are again seen. Pedro Pablo holes are again seen in the left calvarium. Ventricles and Extra axial spaces: Normal in size and morphology for the patient's age. Hemorrhage: None. Cerebral parenchyma: No evidence of acute acute territorial infarct. No mass effect is identified. There are areas of decreased attenuation in the white matter most consistent with chronic microvascul ar ischemic disease. Midline shift: None. Brainstem/Cerebellum: Normal. Calvarium: Normal. Visualized Paranasal sinuses/Mastoids: Clear. Soft Tissues: Unremarkable. IMPRESSION: No acute intracranial process. RADIATION DOSE DELIVERED: 879.31mGy.cm Total DLP DATA REPOSITORY: All CT scans at this facility are submitted to the National Radiology Data Registry (NRDR) Dose Index Registry (DIR) with the [employer] (A[employer]). RADIATION OPTIMIZATION: All CT scans at this facility use at least one of these dose optimization te chniques: automated exposure control; mA and/or kV adjustment per patient size (includes targeted exa ms where dose is matched to clinical indication); or iterative reconstruction.
== END 2024-09-22 02:49 ==
LOC: DI 02:29
PROVIDERS: PCP Nurse Practitioner Family; Visit Provider Nurse Practitioner Family
DX: R41.3 Other amnesia (principal)
CPT/HCPCS: 70450

== ENCOUNTER 2024-10-19 03:56 | Outpatient (CLI) | payer MEDICARE, SELFPAY ==
[2024-10-19 22:57] LABS: PSA, Diagnostic 7.4 ng/mL (<=6.5)
== END 2024-10-19 03:57 | disposition home or self-care (01) ==
LOC: LBO 03:57
PROVIDERS: PCP Nurse Practitioner Family; Visit Provider Nurse Practitioner Gerontology
DX: R97.20 Elevated prostate specific antigen [PSA] (principal); N40.1 Benign prostatic hyperplasia with lower urinary tract symptoms; N13.8 Other obstructive and reflux uropathy
CPT/HCPCS: 36415; 84153

== ENCOUNTER → 2024-10-26 12:55 | Outpatient (BNVA) | payer MEDICARE, SELFPAY | PROVIDERS: PCP Nurse Practitioner Family; Referring Provider Nurse Practitioner Family; Visit Provider Nurse Practitioner Gerontology | DX: N40.1 Benign prostatic hyperplasia with lower urinary tract symptoms (principal); N13.8 Other obstructive and reflux uropathy; R97.20 Elevated prostate specific antigen [PSA]; R39.9 Unspecified symptoms and signs involving the genitourinary system | CPT/HCPCS: 99214 ==